=== PATIENT | female | born 1960 | race Caucasian/White ===

== ENCOUNTER → 2016-05-26 | Outpatient (REF) | payer OTHER ==
[~2016-05-26] MED LIST: /ESOM40CA OR; ARTHROTEC PO; CALCCHW12 OR; CRANPOW2 PO; ESTR62CR VA; HYDROXCHLOROQUINE PO; LEFLUNOMIDE; PENT10CA OR; ULTIMATE FLORA PO
[2016-05-26 13:40] LABS: BASO % 0.5 % (0.0-1.0); EOS % 0.6 % (0.0-3.0); LARGE UNSTAINED CELL # 0.1 K/mm3 (0.0-0.4); LARGE UNSTAINED CELL % 1.6 % (0.0-4.0); LYMPH % 20.1 % (24.0-44.0); MEAN CORPUSCULAR HEMOGLOBIN 30.3 pg (27.0-33.0); MEAN CORPUSCULAR HGB CONC 32.4 g/dl (32.0-36.5); MEAN CORPUSCULAR VOLUME 93.4 fl (80.0-96.0); MONO # 0.3 K/mm3 (0.0-0.8); MONO % 5.2 % (0.0-5.0); NEUTROPHILS # 3.6 K/mm3 (1.8-7.7); NEUTROPHILS % 71.9 % (36.0-66.0); PLATELET COUNT, AUTOMATED 181 k/mm3 (150-450); RED CELL DISTRIBUTION WIDTH 13.3 % (11.5-14.5); WHITE BLOOD COUNT 4.9 K/mm3 (4.0-10.0)
[2016-05-26 14:02] LABS: ALBUMIN/GLOBULIN RATIO 1.21 (1.00-1.93); ALKALINE PHOSPHATASE 61 U/L (45-117); ALT/SGPT 19 U/L (12-78); ANION GAP 10 MEQ/L (8-16); AST/SGOT 16 U/L (15-37); BILIRUBIN,TOTAL 0.4 MG/DL (0.2-1.0); BLOOD UREA NITROGEN 11 MG/DL (7-18); CALCIUM LEVEL 9.8 MG/DL (8.5-10.1); CARBON DIOXIDE LEVEL 30 MEQ/L (21-32); CHLORIDE LEVEL 102 MEQ/L (98-107); CHOLESTEROL LEVEL 174 MG/DL (<200); FERRITIN 9 NG/ML (8-252); FREE T4 0.89 NG/DL (0.76-1.46); GLOMERULAR FILTRATION RATE 54.7 (>51); GLUCOSE, FASTING 100 MG/DL (70-105); PERCENT SATURATION 19.7 % (13.2-37.4); POTASSIUM SERUM 4.2 MEQ/L (3.5-5.1); SODIUM LEVEL 142 MEQ/L (136-145); TOTAL IRON BINDING CAPACITY 502 UG/DL (250-450); TOTAL PROTEIN 7.3 GM/DL (6.4-8.2); TRIGLYCERIDES LEVEL 241 MG/DL (<150)
== END ==
LOC: M LABDRAW1 13:24
PROVIDERS: ATTEND Family Medicine
DX: D50.9 Iron deficiency anemia, unspecified (principal); E78.2 Mixed hyperlipidemia

== ENCOUNTER → 2016-07-06 | Outpatient (CLI) | payer OTHER ==
[~2016-07-06] MED LIST changes: +ATOR1TAB21 PO; +COLE1TAB PO; +CYCL10TA PO; +GASTROGRAFIN SOLUTION 30ML (Q9963) As Ordered ONE; +HYDR-3713 PO; +INFL10VL IV; +ISOVUE-370 76% 100ML VIAL (Q9967) As Ordered ONE; +LEFL1TAB4 PO; +POLY IRON PO; +PREMARIN CREAM; +SUCR1TA PO; +VITA10002 PO; +VITA100041 PO; +VITAMIN D + CALCIUM PO
--- NOTE | 2016-07-06 16:45 | REP ---
CT abdomen and pelvis without and with IV contrast: With oral contrast: History: Epigastric pain, anemia. Question inflammatory bowel disease and gastric rugal fold thickening on previous upper GI small bowel follow-through study from 03/03/2016. CT contrast dose: 100 mL of Isovue-[address] findings: Preliminary digital service girl radiograph demonstrates clips in right upper quadrant and fusion hardware in the lower lumbar spine. The lung bases are clear. The liver and the spleen are normal in size and homogeneous in texture on pre- and postcontrast images. No pancreatic abnormality is seen. No adrenal lesion is observed. The kidneys enhance symmetrically and are morphologically intact. There is fairly heavy atherosclerotic vascular calcification in the aorta and its major branches. In the infrarenal abdominal aorta there is a focal large aortic plaque producing a 55% aortic stenosis. No aneurysm is seen. There is heavy calcific plaquing in the common iliac arteries bilaterally. There is no obstructive lesion. Small and large bowel loops are normal in the upper abdomen. A normal retrocecal appendix is seen. The distal ileum is unremarkable without mural thickening. There is some mural thickening in the cecum mild in degree. No mass lesion is seen. No pelvic mass or adenopathy is observed. The uterus is surgically absent. No bony destructive lesion is appreciated. Impression: 1. Post cholecystectomy and hysterectomy as well as L4-5 lumbar spine fusion. 2. Mild mural thickening seen in the cecum question inflammatory enterocolitis. 3. Infrarenal abdominal aortic plaquing with 55% stenosis of the infrarenal abdominal aorta by diameter. The celiac, superior mesenteric artery, and inferior mesenteric artery are all patent on contrast enhanced CT. No other abnormality. Signed by Georgi Rudolph MD 07/07/2016 10:42 A
== END ==
LOC: M RAD 12:35
PROVIDERS: ATTEND Internal Medicine Gastroenterology
DX: R10.13 Epigastric pain (principal); D64.9 Anemia, unspecified

== ENCOUNTER → 2016-07-18 | Outpatient (CLI) | payer OTHER ==
[~2016-07-18] VITALS: Ht 162.6 cm; Wt 63.5 kg
[~2016-07-18] MED LIST changes: -GASTROGRAFIN SOLUTION 30ML (Q9963) As Ordered ONE; -ISOVUE-370 76% 100ML VIAL (Q9967) As Ordered ONE; +LIDOCAINE 2% INJ 100 MG/5 ML SDV (FOR ANES.) As Ordered ONE; +NS 1,000 ML IV SCH; +PROPOFOL 200 MG/20 ML VIAL As Ordered ONE
--- NOTE | 2016-07-18 12:37 | ROOR ---
Patient Name: Ezra Ruvalcaba Procedure Date: 07/18/2016 12:27 PM Date of : 1960 Age: 55 Room: [facility] Gender: Female Note Status: Finalized Procedure: Upper GI endoscopy Indications: Epigastric abdominal pain, Dyspepsia Providers: Parish SHAVER MD Referring MD: Wing Quinteros MD Requesting Provider: Medicines: Monitored Anesthesia Care Complications: No immediate complications. Procedure: Pre-Anesthesia Assessment: - The heart rate, respiratory rate, oxygen saturations, blood pressure, adequacy of pulmonary ventilation, and response to care were monitored throughout the procedure. The Endoscope was introduced through the mouth, and advanced to the second part of duodenum. The upper GI endoscopy was accomplished without difficulty. The patient tolerated the procedure well. Findings: The esophagus was normal. The stomach was normal. The examined duodenum was normal. Impression: - Normal esophagus. - Normal stomach. - Normal examined duodenum. - No specimens collected. Recommendation: - Observe patient's clinical course. - Continue present medications. - Follow an antireflux regimen. Parish Shaver MD Parish SHAVER MD 07/18/2016 12:37:09 PM This report has been signed electronically. Number of Addenda: 0 Note Initiated On: 07/18/2016 12:27 PM Estimated Blood Loss: Estimated blood loss: none.
--- NOTE | 2016-07-18 12:59 | ROOR ---
Patient Name: Ezra Ruvalcaba Procedure Date: 07/18/2016 12:28 PM Date of : 1960 Age: 55 Room: [facility] Gender: Female Note Status: Finalized Procedure: Colonoscopy Indications: Abnormal CT of the GI tract Providers: Parish SHAVER MD Referring MD: Wing Quinteros MD Requesting Provider: Medicines: Monitored Anesthesia Care Complications: No immediate complications. Procedure: Pre-Anesthesia Assessment: - The heart rate, respiratory rate, oxygen saturations, blood pressure, adequacy of pulmonary ventilation, and response to care were monitored throughout the procedure. The Colonoscope was introduced through the anus and advanced to 15 cm into the ileum. The colonoscopy was performed without difficulty. The patient tolerated the procedure well. The quality of the bowel preparation was good. Findings: The perianal and digital rectal examinations were normal. The terminal ileum appeared normal. A few small-mouthed diverticula were found in the sigmoid colon. The entire examined colon appeared normal on direct and retroflexion views. Impression: - The examined portion of the ileum (x15 cm) is normal. - Mild Diverticulosis in the sigmoid colon. - Small internal hemorrhoids. - The entire colon is otherwise normal on direct and retroflexion views. - No specimens collected. Recommendation: - To visualize the small bowel, perform video capsule endoscopy at the next available appointment. - my office will call you to set up capsule endoscopy. - Use Bentyl (dicyclomine) 10 mg -20 mg every 4-6 hrs as needed for abdominal spasm - (the script was sent to your pharmacy on file) Parish Shaver MD Parish SHAVER MD 07/18/2016 12:58:52 PM This report has been signed electronically. Number of Addenda: 0 Note Initiated On: 07/18/2016 12:28 PM Estimated Blood Loss: Estimated blood loss: none.
[2016-07-18 13:10] VITALS: BP 122/53
== END | disposition home or self-care (01) ==
LOC: M OPP 10:09
PROVIDERS: ATTEND Internal Medicine Gastroenterology
DX: K57.30 Diverticulosis of large intestine without perforation or abscess without bleeding (principal); K64.8 Other hemorrhoids; R10.13 Epigastric pain; E78.00 Pure hypercholesterolemia, unspecified; D64.9 Anemia, unspecified; M19.90 Unspecified osteoarthritis, unspecified site; M79.7 Fibromyalgia; F17.210 Nicotine dependence, cigarettes, uncomplicated; F17.228 Nicotine dependence, chewing tobacco, with other nicotine-induced disorders; M48.00 Spinal stenosis, site unspecified; N30.10 Interstitial cystitis (chronic) without hematuria; M06.9 Rheumatoid arthritis, unspecified; M51.9 Unspecified thoracic, thoracolumbar and lumbosacral intervertebral disc disorder; Z79.899 Other long term (current) drug therapy; Z88.8 Allergy status to other drugs, medicaments and biological substances; Z91.02 Food additives allergy status; Z88.2 Allergy status to sulfonamides

== ENCOUNTER → 2016-08-25 | Outpatient (REF) | payer OTHER ==
[~2016-08-25] MED LIST changes: -LIDOCAINE 2% INJ 100 MG/5 ML SDV (FOR ANES.) As Ordered ONE; -NS 1,000 ML IV SCH; -PROPOFOL 200 MG/20 ML VIAL As Ordered ONE
[2016-08-25 18:13] LABS: BASO % 0.6 % (0.0-1.0); EOS % 0.8 % (0.0-3.0); LARGE UNSTAINED CELL # 0.1 K/mm3 (0.0-0.4); LARGE UNSTAINED CELL % 1.6 % (0.0-4.0); LYMPH # 1.9 K/mm3 (1.5-4.5); LYMPH % 30.6 % (24.0-44.0); MEAN CORPUSCULAR HEMOGLOBIN 31.9 pg (27.0-33.0); MEAN CORPUSCULAR HGB CONC 32.7 g/dl (32.0-36.5); MEAN CORPUSCULAR VOLUME 97.5 fl (80.0-96.0); MONO # 0.4 K/mm3 (0.0-0.8); MONO % 5.9 % (0.0-5.0); NEUTROPHILS # 3.8 K/mm3 (1.8-7.7); NEUTROPHILS % 60.4 % (36.0-66.0); PLATELET COUNT, AUTOMATED 191 k/mm3 (150-450); WHITE BLOOD COUNT 6.3 K/mm3 (4.0-10.0)
[2016-08-25 18:31] LABS: VITAMIN B12 LEVEL 1060 PG/ML (247-911)
[2016-08-25 18:48] LABS: ALBUMIN 3.7 GM/DL (3.2-5.2); ALBUMIN/GLOBULIN RATIO 1.23 (1.00-1.93); ALKALINE PHOSPHATASE 55 U/L (45-117); ALT/SGPT 35 U/L (12-78); ANION GAP 7 MEQ/L (8-16); AST/SGOT 19 U/L (15-37); BILIRUBIN,TOTAL 0.3 MG/DL (0.2-1.0); BLOOD UREA NITROGEN 10 MG/DL (7-18); CALCIUM LEVEL 8.5 MG/DL (8.5-10.1); CARBON DIOXIDE LEVEL 29 MEQ/L (21-32); CHLORIDE LEVEL 106 MEQ/L (98-107); CREATININE FOR GFR 0.95 MG/DL (0.55-1.02); FERRITIN 15 NG/ML (8-252); GLOMERULAR FILTRATION RATE > 60.0 (>51); GLUCOSE, FASTING 84 MG/DL (70-105); PERCENT SATURATION 12.6 % (13.2-37.4); POTASSIUM SERUM 4.4 MEQ/L (3.5-5.1); SODIUM LEVEL 142 MEQ/L (136-145); TOTAL IRON BINDING CAPACITY 443 UG/DL (250-450); TOTAL PROTEIN 6.7 GM/DL (6.4-8.2)
== END ==
LOC: M SFHCPLAZ 15:10
PROVIDERS: ATTEND Family Medicine
DX: D50.9 Iron deficiency anemia, unspecified (principal); N18.2 Chronic kidney disease, stage 2 (mild); R73.01 Impaired fasting glucose; E53.8 Deficiency of other specified B group vitamins

== ENCOUNTER → 2016-09-28 | Outpatient (CLI) | payer OTHER ==
--- NOTE | 2016-09-28 09:49 | REPMRS ---
Patient History The patient states she has not had a clinical breast exam in over a year. Family history of colorectal cancer in paternal grandfather, colorectal cancer in maternal aunt at age 50 or over, colorectal cancer in maternal grandmother, and colorectal cancer in maternal uncle at age 50 or over. Benign stereotatic breast biopsy of the right breast, October 10, 2010. Taking unspecified hormones for 7 years. Digital Woman Screen Mammo: September 28, 2016 - Exam #: [id number] Bilateral CC and MLO view(s) were taken. Technologist: Juju Oconnor, Technologist Prior study comparison: September 28, 2015, digital woman screen mammo performed at [facility] to [facility]. September 22, 2014, digital woman screen mammo performed at [facility]. FINDINGS: The breast tissue is heterogeneously dense. This may lower the sensitivity of mammography. There has been no change in the appearance of the mammogram from the prior studies. There is a moderate amount of residual fibroglandular tissue which is fairly symmetric. There is no interval development of dominant mass, areas of architectural distortion, or clustered microcalcification typical of malignancy. ASSESSMENT: BI-RADS/ACR category 1 mammogram. Negative. Recommendation Routine screening mammogram in 1 year (for women over age 40). This mammogram was interpreted with the aid of an FDA-approved computer-aided dectection system. Electronically Signed By: Harish Kennedy MD 09/28/16 0948
--- NOTE | 2016-09-29 14:17 | DEXA ---
AP SPINE L1 - L4 0.982 -0.2 0.6 LT FEMUR TOTAL 0.979 -0.2 0.5 RT FEMUR TOTAL TOTAL BODY TOTAL OTHER L1-L3 1.234 0.4 1.4 DUAL FEMUR FRAX* ASSESSMENT Risk factors: Rheumatoid arthritis, tobacco user (smoker). 10 year probability of fracture Major osteoporotic fracture 8.3 % Hip fracture 0.9 % COMMENTS: Normal bone densitometry of the spine. There is low bone density of the hips. The increased density of the spine does represent a significant change. The decreased density of the left hip does not represent a significant change. The increased density of the right hip does represent a significant change. The density of the spine has increased 1.2% since the initial exam on 2004. The spine density has increased 6.6% since the most recent exam on 03/30/2014. The density of the left hip has decreased 8.7% since the initial exam on 2006. The density of the left hip has decreased 0.9% since the most recent exam on 04/2013. The density of the right hip has decreased 7.2% since the initial exam on 2004. The density of the right hip has increased 2.0% since the most recent exam on . FOLLOW-UP: Recommendation for the next bone density exam: 2 years. ZINA
== END ==
LOC: M WHC 07:47
PROVIDERS: ATTEND Family Medicine
DX: Z12.39 Encounter for other screening for malignant neoplasm of breast (principal); M85.9 Disorder of bone density and structure, unspecified

== ENCOUNTER → 2016-12-28 | Outpatient (REF) | payer OTHER ==
[~2016-12-28] MED LIST changes: +VITA-182 PO; -VITA100041 PO
[2016-12-28 18:29] LABS: ALBUMIN 4.1 GM/DL (3.2-5.2); ALBUMIN/GLOBULIN RATIO 1.14 (1.00-1.93); ALKALINE PHOSPHATASE 56 U/L (45-117); ALT/SGPT 21 U/L (12-78); ANION GAP 6 MEQ/L (8-16); AST/SGOT 11 U/L (15-37); BILIRUBIN,TOTAL 0.4 MG/DL (0.2-1.0); BLOOD UREA NITROGEN 13 MG/DL (7-18); CALCIUM LEVEL 9.5 MG/DL (8.5-10.1); CARBON DIOXIDE LEVEL 32 MEQ/L (21-32); CHLORIDE LEVEL 103 MEQ/L (98-107); CREATININE FOR GFR 0.95 MG/DL (0.55-1.02); FERRITIN 25 NG/ML (8-252); FREE T4 0.86 NG/DL (0.76-1.46); GLOMERULAR FILTRATION RATE > 60.0 (>51); GLUCOSE, FASTING 81 MG/DL (70-105); PERCENT SATURATION 22.5 % (13.2-45.0); POTASSIUM SERUM 4.6 MEQ/L (3.5-5.1); SODIUM LEVEL 141 MEQ/L (136-145); TOTAL IRON BINDING CAPACITY 475 UG/DL (250-450); TOTAL PROTEIN 7.7 GM/DL (6.4-8.2)
[2016-12-28 19:00] LABS: BASO # 0.1 K/mm3 (0.0-0.2); BASO % 0.9 % (0.0-1.0); EOS % 0.6 % (0.0-3.0); LARGE UNSTAINED CELL # 0.1 K/mm3 (0.0-0.4); LARGE UNSTAINED CELL % 1.5 % (0.0-4.0); LYMPH # 1.5 K/mm3 (1.5-4.5); LYMPH % 21.5 % (24.0-44.0); MEAN CORPUSCULAR HGB CONC 33.4 g/dl (32.0-36.5); MONO # 0.5 K/mm3 (0.0-0.8); NEUTROPHILS # 4.5 K/mm3 (1.8-7.7); NEUTROPHILS % 67.5 % (36.0-66.0); PLATELET COUNT, AUTOMATED 241 k/mm3 (150-450); RED CELL DISTRIBUTION WIDTH 12.5 % (11.5-14.5); WHITE BLOOD COUNT 6.6 K/mm3 (4.0-10.0)
== END ==
LOC: M SFHCPLAZ 12:12
PROVIDERS: ATTEND Family Medicine
DX: D50.9 Iron deficiency anemia, unspecified (principal); N18.2 Chronic kidney disease, stage 2 (mild); E78.2 Mixed hyperlipidemia

== ENCOUNTER → 2017-03-29 | Outpatient (REF) | payer MEDICARE ==
[2017-03-29 16:19] LABS: BASO % 0.6 % (0.0-1.0); EOS % 0.3 % (0.0-3.0); IMMATURE GRANULOCYTE % 0.1 % (0-0); LYMPH # 0.5 10^3/uL (1.5-4.5); LYMPH % 7.4 % (24.0-44.0); MEAN CORPUSCULAR HEMOGLOBIN 31.9 pg (27.0-33.0); MEAN CORPUSCULAR HGB CONC 31.7 g/dl (32.0-36.5); MEAN CORPUSCULAR VOLUME 100.8 fl (80.0-96.0); MONO # 0.4 10^3/uL (0.0-0.8); MONO % 5.9 % (0.0-5.0); NEUTROPHILS # 5.8 10^3/uL (1.8-7.7); NEUTROPHILS % 85.7 % (36.0-66.0); PLATELET COUNT, AUTOMATED 222 10^3/uL (150-450); RED CELL DISTRIBUTION WIDTH 12.4 % (11.5-14.5); RETIC HEMOGLOBIN EQUIVALENT 35.7 pg (24-36); RETICULOCYTE % 1.5 % (0.5-1.5); WHITE BLOOD COUNT 6.7 10^3/uL (4.0-10.0)
[2017-03-29 16:37] LABS: ALBUMIN/GLOBULIN RATIO 1.29 (1.00-1.93); ALKALINE PHOSPHATASE 39 U/L (45-117); ALT/SGPT 31 U/L (12-78); ANION GAP 6 MEQ/L (8-16); AST/SGOT 18 U/L (7-37); BILIRUBIN,TOTAL 0.4 MG/DL (0.2-1.0); BLOOD UREA NITROGEN 10 MG/DL (7-18); CALCIUM LEVEL 9.5 MG/DL (8.5-10.1); CARBON DIOXIDE LEVEL 29 MEQ/L (21-32); CHLORIDE LEVEL 108 MEQ/L (98-107); CHOLESTEROL LEVEL 203 MG/DL (<200); CREATININE FOR GFR 0.91 MG/DL (0.55-1.02); FERRITIN 14 NG/ML (8-252); GLOMERULAR FILTRATION RATE > 60.0 (>51); GLUCOSE, FASTING 102 MG/DL (70-105); PERCENT SATURATION 13.5 % (13.2-45.0); POTASSIUM SERUM 4.6 MEQ/L (3.5-5.1); SODIUM LEVEL 143 MEQ/L (136-145); TOTAL IRON BINDING CAPACITY 451 UG/DL (250-450); TOTAL PROTEIN 7.1 GM/DL (6.4-8.2); TRIGLYCERIDES LEVEL 111 MG/DL (<150)
== END ==
LOC: M SFHCPLAZ 12:50
PROVIDERS: ATTEND Family Medicine
DX: E78.2 Mixed hyperlipidemia (principal); D50.9 Iron deficiency anemia, unspecified; N18.2 Chronic kidney disease, stage 2 (mild); E53.8 Deficiency of other specified B group vitamins; E55.9 Vitamin D deficiency, unspecified
CPT/HCPCS: 36415; 80053; 80061; 82306; 82550; 82728; 83550; 83970; 85025; 85046; 86140; G0463

== ENCOUNTER → 2017-04-02 | Outpatient (CLI) | payer MEDICARE ==
--- NOTE | 2017-04-02 18:09 | REP ---
MR LUMBAR SPINE WITHOUT CONTRAST: HISTORY: Degenerative disc disease. COMPARISON: 06/23/2013 Decreased signal intensity on T2 weighted images is present in the T11-12 through L4-5 intervertebral discs. The L2-3 through L4-5 intervertebral discs are decreased in height. These findings are consistent with disc degeneration. There is no disc bulge or herniation at the L1-2 level. The L1 nerves exit the neural foramina without compression. A diffuse disc bulge is present at the L2-3 level. There is hypertrophy of ligamenta flava and posterior articulating facets. These findings produce minimal central canal stenosis. A small left intraforaminal disc protrusion is present. There is compression of the left L2 nerve in the neural foramen. The right L2 nerve exits the neural foramen without compression. A diffuse disc bulge is present at the L3-4 level. There is hypertrophy of the ligamenta flava and posterior articulating facets. The findings produce severe central canal stenosis. There is compression of the right L3 nerve in the neural foramen. The left L3 nerve exits the neural foramen without compression. The patient is status-post L4-5 posterior spinal fusion. Metal rods and pedicle screws are present. The spinal canal is partially obscured by metal artifact at this level. A diffuse disc bulge is present. There is minimal compression of the thecal sac. The L4 nerves exit the neural foramina without compression. A diffuse disc bulge and small central disc protrusion are present at the L5-S1 level. There is minimal compression of the thecal sac. There is hypertrophy of the posterior articulating facets. The L5 nerves exit the neural foraminal without compression. The conus medullaris is normal in appearance terminating at the level of the T12-L1 intervertebral disc.. Normal signal intensity is present in the lumbar vertebral bodies. IMPRESSION: 1. Minimal central stenosis at the L2-3 level secondary to disc bulge ligamentous and facet hypertrophy. A small left intraforaminal disc protrusion is present. There is compression of the left L2 nerve in the neural foramen. 2. Severe central canal stenosis at the L3-4 level secondary to disc bulge, ligamentous and facet hypertrophy. There is compression of the right L3 nerve in the neural foramen. There has been progression of the canal stenosis. The right L3 nerve compression is a new finding. 3. The patient is status-post L4-5 posterior spinal fusion. A diffuse disc bulge with minimal thecal sac compression is present. There is anatomic alignment of the lumbar spine. The spinal fusion is a new finding. 4. Diffuse disc bulge and small central disc protrusion at the L5-S1 level with minimal thecal sac compression. There is no other significant change. Signed by Daniel Matthew MD 04/03/2017 08:35 A
== END ==
LOC: M RAD 16:07
PROVIDERS: ATTEND Family Medicine
DX: M47.816 Spondylosis without myelopathy or radiculopathy, lumbar region (principal)

== ENCOUNTER → 2017-06-06 | Outpatient (CLI) | payer MEDICARE | LOC: M PAIN 13:00 | DX: M48.07 Spinal stenosis, lumbosacral region (principal); M06.08 Rheumatoid arthritis without rheumatoid factor, vertebrae; M06.09 Rheumatoid arthritis without rheumatoid factor, multiple sites; G89.29 Other chronic pain; E78.5 Hyperlipidemia, unspecified; E55.9 Vitamin D deficiency, unspecified; G47.00 Insomnia, unspecified; F17.210 Nicotine dependence, cigarettes, uncomplicated; Z79.899 Other long term (current) drug therapy; Z88.2 Allergy status to sulfonamides; Z88.6 Allergy status to analgesic agent; Z88.8 Allergy status to other drugs, medicaments and biological substances; Z91.048 Other nonmedicinal substance allergy status | CPT/HCPCS: G0463 ==

== ENCOUNTER → 2017-08-06 | Outpatient (REF) | payer MEDICARE ==
[2017-08-06 14:24] LABS: BASO % 0.5 % (0.0-1.0); EOS % 0.3 % (0.0-3.0); HEMOGLOBIN 12.8 g/dl (12.0-15.5); IMMATURE GRANULOCYTE % 0.3 % (0-3.0); LYMPH # 0.7 10^3/uL (1.5-4.5); LYMPH % 12.2 % (24.0-44.0); MEAN CORPUSCULAR HEMOGLOBIN 31.5 pg (27.0-33.0); MEAN CORPUSCULAR HGB CONC 32.8 g/dl (32.0-36.5); MEAN CORPUSCULAR VOLUME 96.1 fl (80.0-96.0); MONO % 16.3 % (0.0-5.0); NEUTROPHILS # 4.2 10^3/uL (1.8-7.7); NEUTROPHILS % 70.4 % (36.0-66.0); PLATELET COUNT, AUTOMATED 190 10^3/uL (150-450); RED BLOOD COUNT 4.06 10^6/uL (4.00-5.40); RED CELL DISTRIBUTION WIDTH 12.1 % (11.5-14.5)
[2017-08-06 14:55] LABS: ALBUMIN 4.1 GM/DL (3.2-5.2); ALBUMIN/GLOBULIN RATIO 1.17 (1.00-1.93); ALKALINE PHOSPHATASE 64 U/L (45-117); ALT/SGPT 27 U/L (12-78); ANION GAP 6 MEQ/L (8-16); AST/SGOT 23 U/L (7-37); BILIRUBIN,TOTAL 0.5 MG/DL (0.2-1.0); BLOOD UREA NITROGEN 10 MG/DL (7-18); CARBON DIOXIDE LEVEL 28 MEQ/L (21-32); CHLORIDE LEVEL 107 MEQ/L (98-107); GLOMERULAR FILTRATION RATE > 60.0 (>51); GLUCOSE, FASTING 74 MG/DL (70-100); POTASSIUM SERUM 4.5 MEQ/L (3.5-5.1); SODIUM LEVEL 141 MEQ/L (136-145); TOTAL PROTEIN 7.6 GM/DL (6.4-8.2)
== END ==
LOC: M SFHCPLAZ 11:54
DX: J06.9 Acute upper respiratory infection, unspecified (principal)
CPT/HCPCS: 80053

== ENCOUNTER → 2017-08-06 | Outpatient (CLI) | payer MEDICARE | LOC: M SMT 12:07 | DX: J06.9 Acute upper respiratory infection, unspecified (principal); Z90.49 Acquired absence of other specified parts of digestive tract; Z98.1 Arthrodesis status | CPT/HCPCS: 71046; 80053 ==

== ENCOUNTER → 2017-09-27 | Outpatient (REF) | payer MEDICARE ==
[2017-09-27 13:14] LABS: BASO % 0.8 % (0.0-1.0); EOS % 0.8 % (0.0-3.0); HEMATOCRIT 40.9 % (36.0-47.0); HEMOGLOBIN 13.3 g/dl (12.0-15.5); IMMATURE GRANULOCYTE % 0.2 % (0-3.0); LYMPH # 0.9 10^3/uL (1.5-4.5); LYMPH % 18.4 % (24.0-44.0); MEAN CORPUSCULAR HEMOGLOBIN 31.7 pg (27.0-33.0); MEAN CORPUSCULAR HGB CONC 32.5 g/dl (32.0-36.5); MEAN CORPUSCULAR VOLUME 97.4 fl (80.0-96.0); MONO # 0.4 10^3/uL (0.0-0.8); MONO % 7.4 % (0.0-5.0); NEUTROPHILS # 3.6 10^3/uL (1.8-7.7); NEUTROPHILS % 72.4 % (36.0-66.0); PLATELET COUNT, AUTOMATED 225 10^3/uL (150-450); RED CELL DISTRIBUTION WIDTH 12.2 % (11.5-14.5); RETIC HEMOGLOBIN EQUIVALENT 33.9 pg (24-36); RETICULOCYTE # 57.1 10^9/L (17-77); RETICULOCYTE % 1.4 % (0.5-1.5)
[2017-09-27 13:19] LABS: HEMATOCRIT 40.9 % (36.0-47.0)
[2017-09-27 13:29] LABS: ALBUMIN/GLOBULIN RATIO 1.14 (1.00-1.93); ALKALINE PHOSPHATASE 70 U/L (45-117); ALT/SGPT 32 U/L (12-78); ANION GAP 7 MEQ/L (8-16); AST/SGOT 27 U/L (7-37); BILIRUBIN,TOTAL 0.5 MG/DL (0.2-1.0); BLOOD UREA NITROGEN 9 MG/DL (7-18); CALCIUM LEVEL 9.3 MG/DL (8.5-10.1); CARBON DIOXIDE LEVEL 29 MEQ/L (21-32); CHLORIDE LEVEL 106 MEQ/L (98-107); CREATININE FOR GFR 1.02 MG/DL (0.55-1.30); GLOMERULAR FILTRATION RATE 59.5 (>51); GLUCOSE, FASTING 80 MG/DL (70-100); POTASSIUM SERUM 4.8 MEQ/L (3.5-5.1); SODIUM LEVEL 142 MEQ/L (136-145); TOTAL PROTEIN 7.5 GM/DL (6.4-8.2)
[2017-09-27 14:07] LABS: ESTIMATED AVERAGE GLUCOSE 103 MG/DL (60-110); HEMOGLOBIN A1c 5.2 %
[2017-09-27 16:14] LABS: VITAMIN B12 LEVEL 1713 PG/ML (247-911)
[2017-10-01 14:36] LABS: PRETREATED FOLATE FOR RBCFOL 10.7 NG/ML; RBC FOLATE 549.4 NG/ML (280-791)
== END ==
LOC: M SFHCPLAZ 09:47
DX: E53.8 Deficiency of other specified B group vitamins (principal); R73.01 Impaired fasting glucose; D50.9 Iron deficiency anemia, unspecified
CPT/HCPCS: 82607

== ENCOUNTER → 2017-10-01 | Outpatient (CLI) | payer MEDICARE | LOC: M WHC 08:35 | DX: Z12.31 Encounter for screening mammogram for malignant neoplasm of breast (principal); R92.8 Other abnormal and inconclusive findings on diagnostic imaging of breast; Z79.890 Hormone replacement therapy; Z98.890 Other specified postprocedural states; Z12.72 Encounter for screening for malignant neoplasm of vagina | CPT/HCPCS: G0123 ==

== ENCOUNTER → 2017-10-01 | Outpatient (REF) | payer MEDICARE | LOC: M SFHCWAGY 09:00 | DX: Z12.72 Encounter for screening for malignant neoplasm of vagina (principal) | CPT/HCPCS: G0123 ==

== ENCOUNTER → 2017-11-28 | Outpatient (REF) | payer MEDICARE | LOC: M SFHCLERA 11-29 12:26 | DX: D23.39 Other benign neoplasm of skin of other parts of face (principal); D22.5 Melanocytic nevi of trunk; L82.1 Other seborrheic keratosis | CPT/HCPCS: 88305 ==

== ENCOUNTER → 2017-12-07 | Outpatient (CLI) | payer MEDICARE | LOC: M PAIN 11:15 | DX: M47.897 Other spondylosis, lumbosacral region (principal); M06.9 Rheumatoid arthritis, unspecified; G89.29 Other chronic pain; M19.90 Unspecified osteoarthritis, unspecified site; M79.7 Fibromyalgia; E78.5 Hyperlipidemia, unspecified; G47.00 Insomnia, unspecified; M85.80 Other specified disorders of bone density and structure, unspecified site; F17.210 Nicotine dependence, cigarettes, uncomplicated; Z79.899 Other long term (current) drug therapy; Z88.2 Allergy status to sulfonamides; Z88.6 Allergy status to analgesic agent; Z88.8 Allergy status to other drugs, medicaments and biological substances; Z91.09 Other allergy status, other than to drugs and biological substances; Z90.49 Acquired absence of other specified parts of digestive tract | CPT/HCPCS: G0463 ==

== ENCOUNTER → 2018-01-10 | Outpatient (CLI) | payer MEDICARE | LOC: M PAIN 09:45 | DX: M48.07 Spinal stenosis, lumbosacral region (principal); M06.08 Rheumatoid arthritis without rheumatoid factor, vertebrae; G89.29 Other chronic pain; M79.7 Fibromyalgia; M85.80 Other specified disorders of bone density and structure, unspecified site; E55.9 Vitamin D deficiency, unspecified; G47.00 Insomnia, unspecified; F17.210 Nicotine dependence, cigarettes, uncomplicated; Z79.899 Other long term (current) drug therapy; Z88.2 Allergy status to sulfonamides; Z88.6 Allergy status to analgesic agent; Z88.8 Allergy status to other drugs, medicaments and biological substances | CPT/HCPCS: G0463 ==

== ENCOUNTER → 2018-02-01 | Outpatient (CLI) | payer MEDICARE | LOC: M PAIN 13:00 | DX: M96.1 Postlaminectomy syndrome, not elsewhere classified (principal); M06.9 Rheumatoid arthritis, unspecified; M19.90 Unspecified osteoarthritis, unspecified site; M79.7 Fibromyalgia; F17.210 Nicotine dependence, cigarettes, uncomplicated; K21.9 Gastro-esophageal reflux disease without esophagitis; E78.5 Hyperlipidemia, unspecified; E55.9 Vitamin D deficiency, unspecified; N95.2 Postmenopausal atrophic vaginitis; M85.80 Other specified disorders of bone density and structure, unspecified site; K58.0 Irritable bowel syndrome with diarrhea; M51.26 Other intervertebral disc displacement, lumbar region; G47.00 Insomnia, unspecified; H04.123 Dry eye syndrome of bilateral lacrimal glands; Z98.1 Arthrodesis status; Z90.49 Acquired absence of other specified parts of digestive tract; Z88.2 Allergy status to sulfonamides; Z88.8 Allergy status to other drugs, medicaments and biological substances; Z79.899 Other long term (current) drug therapy | CPT/HCPCS: G0463 ==

== ENCOUNTER → 2018-02-05 | Outpatient (REF) | payer MEDICARE ==
[2018-02-05 11:44] LABS: BASO # 0.1 10^3/uL (0.0-0.2); BASO % 1.6 % (0.0-1.0); EOS # 0.1 10^3/uL (0.0-0.50); EOS % 1.6 % (0.0-3.0); HEMATOCRIT 37.7 % (36.0-47.0); HEMOGLOBIN 12.2 g/dl (12.0-15.5); IMMATURE GRANULOCYTE % 0.3 % (0-3.0); LYMPH # 0.9 10^3/uL (1.5-4.5); LYMPH % 24.8 % (24.0-44.0); MEAN CORPUSCULAR HEMOGLOBIN 31.8 pg (27.0-33.0); MEAN CORPUSCULAR HGB CONC 32.4 g/dl (32.0-36.5); MEAN CORPUSCULAR VOLUME 98.2 fl (80.0-96.0); MONO # 0.3 10^3/uL (0.0-0.8); MONO % 8.2 % (0.0-5.0); NEUTROPHILS # 2.3 10^3/uL (1.8-7.7); NEUTROPHILS % 63.5 % (36.0-66.0); PLATELET COUNT, AUTOMATED 183 10^3/uL (150-450); RED BLOOD COUNT 3.84 10^6/uL (4.00-5.40); RED CELL DISTRIBUTION WIDTH 12.6 % (11.5-14.5); RETIC HEMOGLOBIN EQUIVALENT 35.2 pg (24-36); RETICULOCYTE # 61.8 10^9/L (17-77); RETICULOCYTE % 1.6 % (0.5-1.5); WHITE BLOOD COUNT 3.7 10^3/uL (4.0-10.0)
[2018-02-05 12:28] LABS: ALBUMIN 3.7 GM/DL (3.2-5.2); ALBUMIN/GLOBULIN RATIO 1.32 (1.00-1.93); ALKALINE PHOSPHATASE 60 U/L (45-117); ALT/SGPT 20 U/L (12-78); ANION GAP 2 MEQ/L (8-16); AST/SGOT 19 U/L (7-37); BILIRUBIN,TOTAL 0.3 MG/DL (0.2-1.0); BLOOD UREA NITROGEN 10 MG/DL (7-18); C REACTIVE PROTEIN QUANTITATIV < 0.30 MG/DL (0.00-0.30); CALCIUM LEVEL 9.3 MG/DL (8.5-10.1); CARBON DIOXIDE LEVEL 32 MEQ/L (21-32); CHLORIDE LEVEL 109 MEQ/L (98-107); CHOLESTEROL LEVEL 154 MG/DL (<200); CHOLESTEROL RISK RATIO 2.655 (<5); CREATININE FOR GFR 1.01 MG/DL (0.55-1.30); GLOMERULAR FILTRATION RATE 59.9 (>51); GLUCOSE, FASTING 87 MG/DL (70-100); HDL CHOLESTEROL 58 MG/DL (>40); LDL CHOLESTEROL 61 MG/DL (<100); NON-HDL-C 96 MG/DL; POTASSIUM SERUM 5.1 MEQ/L (3.5-5.1); PTH INTACT 50.2 PG/ML (18.5-88.0); SODIUM LEVEL 143 MEQ/L (136-145); TOTAL 25(OH) VITAMIN D 51.8 NG/ML (30.0-100.0); TOTAL PROTEIN 6.5 GM/DL (6.4-8.2); TRIGLYCERIDES LEVEL 177 MG/DL (<150)
[2018-02-05 12:41] LABS: CPK CREATINE PHOSPHOKINASE 128 U/L (26-192)
[2018-02-09 00:06] LABS: AMPHETAMINE SCREEN, URINE Negative ng/mL (Cutoff=1000); BARBITURATES SCREEN, URINE Negative ng/mL (Cutoff=200); BENZODIAZEPINES, URINE SCREEN Negative ng/mL (Cutoff=200); CANNABINOID SCREEN, URINE Negative ng/mL (Cutoff=20); COCAINE SCREEN, URINE Negative ng/mL (Cutoff=300); CODEINE, URINE Negative (Cutoff=100); CREATININE, URINE 111.8 mg/dL (20.0-300.0); FENTANYL URINE SCREEN Negative pg/mL (Cutoff=2000); HYDROCODONE CONFIRM, URINE 387 ng/mL (Cutoff=100); HYDROCODONE, URINE Positive (.); HYDROMORPHONE, URINE Negative (Cutoff=100); METHADONE, URINE SCREEN Negative ng/mL (Cutoff=300); MORPHINE, URINE Negative (Cutoff=100); OPIATE SCREEN, URINE See Final Results ng/mL (Cutoff=300); OPIATES, URINE Positive ng/mL (Cutoff=300); OXYCODONE, SCREEN, URINE Negative ng/mL (Cutoff=100); PCP SCREEN, URINE Negative ng/mL (Cutoff=25); SPECIFIC GRAVITY, URINE 1.024 (.); pH, URINE 6.6 (4.5-8.9)
== END ==
LOC: M SFHCPLAZ 07:49
DX: D50.9 Iron deficiency anemia, unspecified (principal); E78.2 Mixed hyperlipidemia; N18.2 Chronic kidney disease, stage 2 (mild); M47.816 Spondylosis without myelopathy or radiculopathy, lumbar region
CPT/HCPCS: 82550

== ENCOUNTER → 2018-02-20 | Outpatient (CLI) | payer MEDICARE ==
[~2018-02-20] MED LIST changes: -/ESOM40CA OR; -ARTHROTEC PO; -ATOR1TAB21 PO; -CALCCHW12 OR; -COLE1TAB PO; -CRANPOW2 PO; -CYCL10TA PO; -ESTR62CR VA; -HYDR-3713 PO; -HYDROXCHLOROQUINE PO; -INFL10VL IV; +ISOVUE-M 300 61% 15ML VIAL (Q9967) As Ordered; -LEFL1TAB4 PO; -LEFLUNOMIDE; +LIDOCAINE 1% SDV INJ 30 ML VIAL As Ordered; +MIDAZOLAM INJ 2 MG/2 ML VIAL (J2250) As Ordered; -PENT10CA OR; -POLY IRON PO; -PREMARIN CREAM; -SUCR1TA PO; -ULTIMATE FLORA PO; -VITA-182 PO; -VITA10002 PO; -VITAMIN D + CALCIUM PO; +fentaNYL 100 MCG/2 ML INJECTION (J3010) As Ordered; +methylPREDNISolone SUSP 40 MG/ML (DEPO-medrol) VIAL (J1030) As Ordered
== END ==
LOC: M PAIN 13:45
DX: M96.1 Postlaminectomy syndrome, not elsewhere classified (principal); M51.17 Intervertebral disc disorders with radiculopathy, lumbosacral region; M06.9 Rheumatoid arthritis, unspecified; M19.90 Unspecified osteoarthritis, unspecified site; M79.7 Fibromyalgia; E78.5 Hyperlipidemia, unspecified; E55.9 Vitamin D deficiency, unspecified; G47.00 Insomnia, unspecified; M85.80 Other specified disorders of bone density and structure, unspecified site; F17.210 Nicotine dependence, cigarettes, uncomplicated; Z79.899 Other long term (current) drug therapy; Z88.2 Allergy status to sulfonamides; Z88.8 Allergy status to other drugs, medicaments and biological substances
CPT/HCPCS: J1030

== ENCOUNTER → 2018-03-12 | Outpatient (CLI) | payer MEDICARE | LOC: M PAIN 11:30 | DX: M48.07 Spinal stenosis, lumbosacral region (principal); M06.08 Rheumatoid arthritis without rheumatoid factor, vertebrae; M19.90 Unspecified osteoarthritis, unspecified site; M79.7 Fibromyalgia; K21.9 Gastro-esophageal reflux disease without esophagitis; E78.5 Hyperlipidemia, unspecified; N30.10 Interstitial cystitis (chronic) without hematuria; R10.13 Epigastric pain; M50.30 Other cervical disc degeneration, unspecified cervical region; N95.2 Postmenopausal atrophic vaginitis; M85.80 Other specified disorders of bone density and structure, unspecified site; E55.9 Vitamin D deficiency, unspecified; F17.210 Nicotine dependence, cigarettes, uncomplicated; K58.0 Irritable bowel syndrome with diarrhea; H04.123 Dry eye syndrome of bilateral lacrimal glands; M51.36 Other intervertebral disc degeneration, lumbar region; G47.00 Insomnia, unspecified; Z98.1 Arthrodesis status; Z90.49 Acquired absence of other specified parts of digestive tract; Z88.2 Allergy status to sulfonamides; Z88.8 Allergy status to other drugs, medicaments and biological substances | CPT/HCPCS: G0463 ==

== ENCOUNTER → 2018-05-10 | Outpatient (CLI) | payer MEDICARE ==
[~2018-05-10] MED LIST changes: +/ESOM40CA OR; +ARTHROTEC PO; +ATOR1TAB21 PO; +CALCCHW12 OR; +COLE1TAB PO; +CRANPOW2 PO; +CYCL10TA PO; +ESTR62CR VA; +HYDR-3713 PO; +HYDROXCHLOROQUINE PO; +INFL10VL IV; -ISOVUE-M 300 61% 15ML VIAL (Q9967) As Ordered; +LEFL1TAB4 PO; +LEFLUNOMIDE; -LIDOCAINE 1% SDV INJ 30 ML VIAL As Ordered; -MIDAZOLAM INJ 2 MG/2 ML VIAL (J2250) As Ordered; +PENT10CA OR; +POLY IRON PO; +PREMARIN CREAM; +SUCR1TA PO; +ULTIMATE FLORA PO; +VITA-182 PO; +VITA10002 PO; +VITAMIN D + CALCIUM PO; -fentaNYL 100 MCG/2 ML INJECTION (J3010) As Ordered; -methylPREDNISolone SUSP 40 MG/ML (DEPO-medrol) VIAL (J1030) As Ordered
--- NOTE | 2018-05-28 02:18 | ECWPNPC ---
PATIENT NAME: LOGAN CRAVEN : 1960 GENDER: FEMALE VISIT DATE: 05/10/2018 DISCHARGE DATE: 05/10/18 1115 VISIT LOCKED DATE TIME: PHYSICIAN: ANDREA ELIAS PHYSICIAN PAGER NO: [phone] RESOURCE: ANDREA ELIAS REASON FOR APPOINTMENT 1. LOW BACK HISTORY OF PRESENT ILLNESS HISTORY OF PRESENT ILLNESS: HERE FOR F/U OF CHRONIC LOW BACK PAIN W HX OF RHEUMATOID ARTHRITIS.RATING PAIN VAS 5/10.SHE FEELS SHE CONTINUES TO BENEFIT FROM [facility] ON 02/20/18.PAIN IS DESCRIBED INTERMITTENT. PAIN THE PATIENT DESCRIBES THE PAIN... FALL RISK SCREENING: SCREENING :NO FALLS IN THE PAST YEAR CURRENT MEDICATIONS TAKING VITAMIN D 2000 UNIT CAPSULE 1 TABLET ORALLY ONCE A DAY TAKING CANE . MISCELLANEOUS QUAD CANE _ QD R27 TAKING CALCIUM 600 + D 600-400 MG-UNIT TABLET 1 TABLET ORALLY ONCE A DAY TAKING CARAFATE 1 GM TABLET 1 TABLET ON AN EMPTY STOMACH ORALLY AC TID TAKING ESOMEPRAZOLE MAGNESIUM 40 MG CAPSULE DELAYED RELEASE 1 CAPSULE ORALLY AC BID TAKING HYDROXYCHLOROQUINE SULFATE 200 MG TABLET 2 TABLETS WITH FOOD OR MILK ORALLY ONCE A DAY TAKING ARAVA 20 MG TABLET 1 TABLET ORALLY ONCE A DAY TAKING XELJANZ XR 11 MG TABLET EXTENDED RELEASE 24 HOUR 1 TABLET ORALLY ONCE A DAY TAKING CARISOPRODOL 350 MG TABLET 1 TABLET NEEDED ORALLY TID PRN, MDD 3 TAKING CYANOCOBALAMIN 500 MCG TABLET 1 TABLET ORALLY ONCE A DAY TAKING COLESTIPOL HCL 1 GM TABLET 1 TAB ORALLY ONCE A DAY TAKING ELMIRON 100 MG CAPSULE 1 CAPSULE ON AN EMPTY STOMACH 1 TABLET THREE A DAY TAKING ATORVASTATIN CALCIUM 20 MG TABLET 1 TABLET ORALLY ONCE A DAY TAKING DERMOTIC 0.01 % OIL 5 DROPS INTO AFFECTED EAR OTIC TWICE A DAY X 5D C FLARES TAKING PREMARIN 0.625 MG/GM CREAM 1 GRAM VAGINAL WEEKLY TAKING HYDROCODONE-ACETAMINOPHEN 5-325 MG TABLET 1 TABLET NEEDED ORALLY TID PRN MDD = 3 NOT-TAKING TENS UNIT - DIRECTED _ DAILY, M47.22, M06.9 NOT-TAKING ORPHENADRINE CITRATE ER 100 MG TABLET EXTENDED RELEASE 12 HOUR 1 TABLET ORALLY TWICE A DAY MEDICATION LIST REVIEWED AND RECONCILED WITH THE PATIENT PAST MEDICAL HISTORY RA/OSTEOARTHRITIS/FIBROMYALGIA NICOTINE ADDICTION-08/2011 FEV1 2.5L (101%)/RATIO 97% INTERSTITIAL CYSTITIS GERD/DYSPEPSIA-06/2016 NORMAL EGD/COLON/SB CAPSULE-R HYPERLIPIDEMIA 2B ENDOMETRIOSIS 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 SPENCER 2008 FOLLOWS WITH WOMAN TO WOMAN HISTORY OF TUBULAR ADENOMA-NORMAL COLONOSCOPY APRIL 2009 NORMAL COLONOSCOPY C - RANDOM BIOPSIES-[place] COLONOSCOPY 07/18/16 REINDL CERVICAL DJD STATUS POST MULTILEVEL FUSION-01/2010 MRI STABLE ACDF C BASELINE DJD ATROPHIC VAGINITIS OSTEOPENIA VITAMIN D DEFICIENCY CHRONIC SINUSITIS / NONE LATELY RECURRENT UTI / YEARS AGO CHRONIC DIARRHEA STATUS POST LAPAROSCOPIC CHOLECYSTECTOMY JULY 2009//[id number] CHRONIC DRY EYES MEMORY LOSS 2 INSOMNIA, WORK STRESS-12/2011 NORMAL MRI BRAIN S AND NORMAL WORKUP LUMBAR DJD-L2/3 BULGE C L IF HNP C L L2 COMPRESSION, L3/4 SEVERE CCS C B L3 COMPRESSION BY 03/2017 MRI LONG-TERM DISABILITY-TAKEN OOW 08/05/[address] BARAJAS, 01/2014 FILLED OUT LTD PAPERWORK FOR GUARDIAN-PATIENT DEFERRED WCE INSOMNIA ALLERGIES METHOTREXATE (ANTI-RHEUMATIC): MIGRANES: SIDE EFFECTS CYMBALTA: RACING PLUSE, SHAKES: ALLERGY WELLBUTRIN: PALPITATIONS, SEVERE: ALLERGY SULFA (FOR ALLERGY USE ONLY): NAUSEA/VOMITING: ALLERGY LYRICA: PALPITATIONS: ALLERGY CELEXA: PALPITATIONS: SIDE EFFECTS ORENCIA: ANAPHYLAXIS: ALLERGY TOPICAL ALOE VERA: SEVERE ITCHING CANNOT TOLERATE ASA BASED PRODUCTS/ NSAIDS: HX STOMACH BLEED: CONTRAINDICATION SURGICAL HISTORY LAPAROSCOPY X2 CHRISTINE BTL 1981 TVH [address] SPENCER 2007 VAGINAL CUFF BX. IRMA CHANDLER NP 03/07 CHOLECYSTECTOMY 06/09 ACDF-C4-T1 10/06 R BREAST HPAGOH-IMQYRERH-ECGDIY 09/2010 ABOVE L CTR-DR EAST 10/27/14 L4-L5 FUSION/LAMINECTOMY 09/2013 NORMAL EGD/COLON/SB CAPSULE-R 06/2016 FUSION C5 C6 1999 HYSTERECTOMY 1988 BENIGN MOLE REMOVAL 2018 FAMILY HISTORY FATHER: , DM, LUNG CANCER, CAD, DX ALZHEIMER, DIAGNOSED WITH CANCER MOTHER: , COPD SIBLINGS: BROTHER HTN,1/2 BROTHER DM SON(S): HTN PATERNAL GRAND FATHER: , CANCER, COLON MATERNAL AUNT: ALIVE, HYPERLIPIDEMIA 2 BROTHER(S) , 1 SISTER(S) - HEALTHY. 1 SON(S) , 1 DAUGHTER(S) . PGM, MGF C COLON CANCERMOM-GRAVES DISEASESON-SEIZURES, BRADYCARDIA-PACEMAKER, AFIB. SOCIAL HISTORY GENERAL: TOBACCO USE ARE YOU A:CURRENT SMOKER ARE YOU INTERESTED IN QUITTING?THINKING ABOUT QUITTING HAS CUT DOWN COUNSELED THE PATIENT ON SMOKING CESSATION, EDUCATION [id number]/11/2019 HOW MANY CIGARETTES A DAY DO YOU SMOKE?5 OR LESS HOW SOON AFTER YOU WAKE UP DO YOU SMOKE YOUR FIRST CIGARETTE?AFTER 60 MIN HOW OFTEN DO YOU SMOKE CIGARETTES?EVERY DAY PATIENT COUNSELED ON THE DANGERS OF TOBACCO USE AND URGED TO QUIT:05/10/2018 SMOKING CESSATION INFORMATION GIVEN05/02/2018 ALCOHOL SCREENING DID YOU HAVE A DRINK CONTAINING ALCOHOL IN THE PAST YEAR?YES HOW OFTEN DID YOU HAVE A DRINK CONTAINING ALCOHOL IN THE PAST YEAR?MONTHLY OR LESS (1 POINT) POINTS1 INTERPRETATIONNEGATIVE RECREATIONAL DRUG USE DRUG USE?NO CAFFEINE CAFFEINE USE?YES CUPS DAILY SEXUAL HX HAD SEX IN THE LAST 12 MONTHS (VAGINAL, ORAL, OR ANAL)?NO HAVE YOU EVER HAD AN STD?NO HIV / HEP-C SCREENING HIV TEST OFFERED TO PATIENT:YES DATE OFFERED:06/28/2017 TEST ACCEPTED:NO HEP-C TEST OFFERED TO PATIENT:YES DATE OFFERED:06/28/2017 REASON:PATIENT DECLINED TEST ACCEPTED:NO REASON:PATIENT DECLINED HINDUISM [id number] NONE NO SHINTO BELIEFS THAT WOULD IMPACT HEALTH CARE. LANGUAGE LANGUAGES SPOKEN:THAI EDUCATION LEVEL OF EDUCATION:HIGH SCHOOL GED LEARNING BARRIERS / SPECIAL NEEDS CHANGE FROM LAST VISIT?NO BARRIERS TO LEARNING?NO HEARING IMPAIRED?NO VISION IMPAIRED?YES COGNITIVELY IMPAIRED?NO :CORRECTIVE LENSES READINESS TO LEARN?YES LEARNING PREFERENCES?NO LEARNING CAPABILITIES PRESENT?YES EMOTIONAL BARRIERS?YES SPECIAL DEVICES?YES :CANE MARINA DRY DOCK MANAGER NEEDED?NO DOMESTIC VIOLENCE DO YOU FEEL SAFE IN YOUR ENVIRONMENT?YES OCCUPATION: DISABLED. DIET: REGULAR. EXERCISE: LOWER BACK EXERCISES, WALKS TOLERATED. MARITAL STATUS: .. OTHERS AT HOME: DAUGHTER, SON-IN LAW. PAIN CLINIC PFS, CLERGY, PUBLIC HEALTH REFERRALS PFS REFERRAL NEEDED?NO CLERGY REFERRAL NEEDED?NO PUBLIC HEALTH REFERRAL NEEDED?NO WAS THE PROVIDER NOTIFIED OF ANY PERTINENT INFO? N/A HAS THE PATIENT BEEN EDUCATED REGARDING HIS/HER PLAN OF CARE?YES HAS THE PATIENT BEEN EDUCATED REGARDING PAIN, THE RISK FOR PAIN, THE IMPORTANCE OF EFFECTIVE PAIN MANAGEMENT, AND THE PAIN ASSESSMENT PROCESS?YES ADVANCE DIRECTIVE ADVANCE DIRECTIVE DISCUSSED WITH PATIENT:YES HEALTH CARE PROXY RAH ROSARIO [phone] REVIEWED WITH PT 12/07/17 1150 LASREVIEWED WITH PT 01/10/18 1030 LAS02/20/18 REVIEWED WITH PT. AD REVIEWED WITH PT 03/12/18 1159 BVREVIEWED WITH PT 05/10/18 1056 LAS. HOSPITALIZATION/MAJOR DIAGNOSTIC PROCEDURE SURGICAL RELATED REVIEW OF SYSTEMS REVIEWED BY: PROVIDER: ANDREA MCLEAN . CONSTITUTIONAL: ANY CHANGE IN YOUR MEDICAL CONDITION? NO . CHILLS NO . FEVER NO . INFECTION: DO YOU HAVE NEW INFECTIONS? NO . DO YOU HAVE HISTORY OF MRSA? NO . MUSCULOSKELETAL: ANY NEW PATTERNS OF PAIN OR NUMBNESS? NO . GASTROENTEROLOGY: ANY NEW CHANGE IN BOWEL CONTROL? NO . GENITOURINARY: ANY NEW CHANGE IN BLADDER CONTROL? NO . IS THERE A CHANCE YOU COULD BE ? NO . HEMATOLOGY/LYMPH: DO YOU TAKE ANY BLOOD THINNERS? (FOR EXAMPLE- COUMADIN, PLAVIX, AGGRENOX, PLATEL, PRADAXA, OR XARELTO) NO . WHEN WAS YOUR LAST DOSE? DATE: TIME: . NEUROLOGY: HAVE YOU FALLEN IN THE PAST 6 MONTHS? NO . ANY NEW EXTREMITY NUMBNESS OR WEAKNESS? NO . CARDIOLOGY: DO YOU HAVE A PACEMAKER OR DEFIBRILLATOR? NO . RESPIRATORY: HAVE YOU BEEN SICK IN THE PAST WEEK? NO . FEVER NO . FLU LIKE SYMPTOMS? NO . COUGH NO . INTEGUMENTARY: DO YOU HAVE ANY RASHES OR OPEN SORES? NO . ALLERGIC/IMMUNO: ARE YOU ALLERGIC TO SHELLFISH OR IV DYE? NO . ANY NEW ALLERGIES? NO . PSYCHIATRIC: DO YOU HAVE THOUGHTS OF HURTING YOURSELF OR SOMEONE ELSE? NO . ARE YOU ABUSED, NEGLECTED, OR IN AN UNSAFE ENVIRONMENT? NO . ENDOCRINOLOGY: ARE YOU DIABETIC? NO . OTHER: DO YOU NEED ANY PRESCRIPTIONS? NO . IF YES, PLEASE LIST: ____ . ANY NEW PROBLEMS WITH YOUR MEDICATIONS? NO . WHEN DID YOU LAST EAT? ____ . WHEN DID YOU LAST DRINK? ____ . WHAT DID YOU LAST DRINK? ____ . NAME OF PERSON DRIVING YOU HOME? ____ . DO YOU HAVE ANY OTHER QUESTIONS OR CONCERNS NO . VITAL SIGNS WT 131.0 LBS, HT 64 IN, BMI 22.48 INDEX, BP 132/66 MM HG, HR 103 /MIN, RR 18 /MIN, TEMP 97.7 F, OXYGEN SAT % 97%, SAFE IN ENV? (Y/N) YES, NA INITIALS AW 1037, REVIEWED BY: MELANIA. EXAMINATION GENERAL EXAMINATION: GENERAL APPEARANCE:AWAKE,ALERT ,PLEAASANT . PSYCHAFFECT NORMAL . LUNGS:LUNG LINDSEY ARE CLEAR TO AUSCULTATION BILATERALLY. GOOD MOVEMENT OF AIR . HEART:S1, S2 IN A REGULAR RATE AND RHYTHM. NO SIGNIFICANT MURMURS, RUBS OR GALLOPS NOTED . ASSESSMENTS LUMBOSACRAL SPINAL STENOSIS - M48.07 (PRIMARY) RHEUMATOID ARTHRITIS INVOLVING VERTEBRA WITH NEGATIVE RHEUMATOID FACTOR - M06.08 RHEUMATOID ARTHRITIS INVOLVING MULTIPLE SITES, UNSPECIFIED RHEUMATOID FACTOR PRESENCE - M06.9 TREATMENT LUMBOSACRAL SPINAL STENOSIS NOTES: CONTINUE HOME STRETCHING AND EXCERSISE. PROCEDURE CODES FA211 ESTABILISHED PATIENT [facility] FACILITY CHARGE DISPOSITION & COMMUNICATION FOLLOW UP 3 MONTHS ELECTRONICALLY SIGNED BY CARIDAD HENLEY ON 05/27/2018 AT 09:04 AM EST DISCLAIMER : THIS IS A VISIT SUMMARY EXTRACTED FROM THE [employer] CHART. IT IS NOT A COPY OF THE [employer] PROGRESS NOTE. ZINA
== END ==
LOC: M PAIN 10:45
PROVIDERS: ATTEND Nurse Practitioner Family
DX: M48.07 Spinal stenosis, lumbosacral region (principal); G89.29 Other chronic pain; M06.08 Rheumatoid arthritis without rheumatoid factor, vertebrae; M79.7 Fibromyalgia; K21.9 Gastro-esophageal reflux disease without esophagitis; E78.5 Hyperlipidemia, unspecified; E55.9 Vitamin D deficiency, unspecified; F17.210 Nicotine dependence, cigarettes, uncomplicated; M85.00 Fibrous dysplasia (monostotic), unspecified site; Z79.899 Other long term (current) drug therapy; Z88.2 Allergy status to sulfonamides; Z88.6 Allergy status to analgesic agent; Z88.8 Allergy status to other drugs, medicaments and biological substances; Z91.09 Other allergy status, other than to drugs and biological substances

== ENCOUNTER → 2018-08-05 | Outpatient (CLI) | payer MEDICARE ==
[~2018-08-05] MED LIST changes: -/ESOM40CA OR; +NEXI1CAP3 OR
--- NOTE | 2018-08-08 02:04 | ECWPNPC ---
PATIENT NAME: LOGAN CRVAEN : 1960 GENDER: FEMALE VISIT DATE: 08/05/2018 DISCHARGE DATE: 08/05/18 1147 VISIT LOCKED DATE TIME: PHYSICIAN: ANDREE TEJADA PHYSICIAN PAGER NO: [phone] RESOURCE: ANDREE TEJADA REASON FOR APPOINTMENT 1. LOW BACK HISTORY OF PRESENT ILLNESS HISTORY OF PRESENT ILLNESS: PAIN THE PATIENT DESCRIBES THE PAINDURING THE LAST MONTH SEVERITY - PAIN SCORE OF5/10 57 YR OLD FEMALE WITH HX OF CHRONIC LOWER BACK PAIN AND SPINAL FUSION. SHE HAD LESI JAN 2018 AND PT STATES SHE HAS > 50 % IMPROVEMENT FOR 3 MONTHS. PATIENT SAYS SHE IS STILL HAVING PAIN RADIATING DOWN BOTH LEGS AND ON OCCASIONS, WHEN THE PAIN IS SEVERE, HER LEGS FEEL LIKE THEY ARE " GIVING OUT".SHE DENIES FEVER, CHILLS. FALL RISK SCREENING: SCREENING :NO FALLS REPORTED IN THE LAST YEAR CURRENT MEDICATIONS TAKING VITAMIN D 2000 UNIT CAPSULE 1 TABLET ORALLY ONCE A DAY TAKING CANE . MISCELLANEOUS QUAD CANE _ QD R27 TAKING CALCIUM 600 + D 600-400 MG-UNIT TABLET 1 TABLET ORALLY ONCE A DAY TAKING CARAFATE 1 GM TABLET 1 TABLET ON AN EMPTY STOMACH ORALLY AC TID TAKING HYDROXYCHLOROQUINE SULFATE 200 MG TABLET 2 TABLETS WITH FOOD OR MILK ORALLY ONCE A DAY TAKING ARAVA 20 MG TABLET 1 TABLET ORALLY ONCE A DAY TAKING CYANOCOBALAMIN 500 MCG TABLET 1 TABLET ORALLY ONCE A DAY TAKING ATORVASTATIN CALCIUM 20 MG TABLET 1 TABLET ORALLY ONCE A DAY TAKING DERMOTIC 0.01 % OIL 5 DROPS INTO AFFECTED EAR OTIC TWICE A DAY X 5D C FLARES TAKING PREMARIN 0.625 MG/GM CREAM 1 GRAM VAGINAL WEEKLY TAKING ELMIRON 100 MG CAPSULE TAKE ONE CAPSULE BY MOUTH THREE TIMES A DAY ON AN EMPTY STOMACH TAKING COLESTIPOL HCL 1 GM TABLET 1 TAB ORALLY ONCE A DAY TAKING ESOMEPRAZOLE MAGNESIUM 40 MG CAPSULE DELAYED RELEASE 1 CAPSULE ORALLY AC BID TAKING HYDROCODONE-ACETAMINOPHEN 5-325 MG TABLET 1 TABLET NEEDED ORALLY TID PRN MDD = 3 TAKING CARISOPRODOL 350 MG TABLET 1 TABLET NEEDED ORALLY TID PRN, MDD 3 TAKING KEVZARA 150 MG/1.14ML SOLUTION PREFILLED SYRINGE 1.14 ML SUBCUTANEOUS EVERY 2 WEEKS NOT-TAKING TENS UNIT - DIRECTED _ DAILY, M47.22, M06.9 NOT-TAKING ORPHENADRINE CITRATE ER 100 MG TABLET EXTENDED RELEASE 12 HOUR 1 TABLET ORALLY TWICE A DAY DISCONTINUED XELJANZ XR 11 MG TABLET EXTENDED RELEASE 24 HOUR 1 TABLET ORALLY ONCE A DAY MEDICATION LIST REVIEWED AND RECONCILED WITH THE PATIENT PAST MEDICAL HISTORY RA/OSTEOARTHRITIS/FIBROMYALGIA NICOTINE ADDICTION-08/2011 FEV1 2.5L (101%)/RATIO 97% INTERSTITIAL CYSTITIS GERD/DYSPEPSIA-06/2016 NORMAL EGD/COLON/SB CAPSULE-R HYPERLIPIDEMIA 2B ENDOMETRIOSIS 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 SPENCER 2008 FOLLOWS WITH WOMAN TO WOMAN HISTORY OF TUBULAR ADENOMA-NORMAL COLONOSCOPY APRIL 2009 NORMAL COLONOSCOPY C - RANDOM BIOPSIES-[place] COLONOSCOPY 07/18/16 REINDL CERVICAL DJD STATUS POST MULTILEVEL FUSION-01/2010 MRI STABLE ACDF C BASELINE DJD ATROPHIC VAGINITIS OSTEOPENIA VITAMIN D DEFICIENCY CHRONIC SINUSITIS / NONE LATELY RECURRENT UTI / YEARS AGO CHRONIC DIARRHEA STATUS POST LAPAROSCOPIC CHOLECYSTECTOMY JULY 2009//[id number] CHRONIC DRY EYES MEMORY LOSS 2 INSOMNIA, WORK STRESS-12/2011 NORMAL MRI BRAIN S AND NORMAL WORKUP LUMBAR DJD-L2/3 BULGE C L IF HNP C L L2 COMPRESSION, L3/4 SEVERE CCS C B L3 COMPRESSION BY 03/2017 MRI LONG-TERM DISABILITY-TAKEN OOW 08/05/13 [address] BARAJAS, 01/2014 FILLED OUT LTD PAPERWORK FOR GUARDIAN-PATIENT DEFERRED WCE INSOMNIA ALLERGIES METHOTREXATE (ANTI-RHEUMATIC): MIGRANES - SIDE EFFECTS CYMBALTA: RACING PLUSE, SHAKES - ALLERGY WELLBUTRIN: PALPITATIONS, SEVERE - ALLERGY SULFA (FOR ALLERGY USE ONLY): NAUSEA/VOMITING - ALLERGY LYRICA: PALPITATIONS - ALLERGY CELEXA: PALPITATIONS - SIDE EFFECTS ORENCIA: ANAPHYLAXIS - ALLERGY TOPICAL ALOE VERA: SEVERE ITCHING CANNOT TOLERATE ASA BASED PRODUCTS/ NSAIDS: HX STOMACH BLEED - CONTRAINDICATION SURGICAL HISTORY LAPAROSCOPY X2 CHRISTINE BTL 1981 TVH [address] SPENCER 2007 VAGINAL CUFF BX. IRMA CHANDLER NP 03/07 CHOLECYSTECTOMY 06/09 ACDF-C4-T1 10/06 R BREAST [id number] 09/2010 ABOVE L CTR-DR EAST 10/27/14 L4-L5 FUSION/LAMINECTOMY 09/2013 NORMAL EGD/COLON/SB CAPSULE-R 06/2016 FUSION C5 C6 1999 HYSTERECTOMY 1988 BENIGN MOLE REMOVAL 2018 FAMILY HISTORY FATHER: , DM, LUNG CANCER, CAD, DX ALZHEIMER, DIAGNOSED WITH CANCER MOTHER: , COPD SIBLINGS: BROTHER HTN,1/2 BROTHER DM SON(S): HTN PATERNAL GRAND FATHER: , CANCER, COLON MATERNAL AUNT: ALIVE, HYPERLIPIDEMIA 2 BROTHER(S) , 1 SISTER(S) - HEALTHY. 1 SON(S) , 1 DAUGHTER(S) . PGM, MGF C COLON CANCER\\NMOM-GRAVES DISEASE\\NSON-SEIZURES, BRADYCARDIA-PACEMAKER, AFIB. SOCIAL HISTORY GENERAL: TOBACCO USE ARE YOU A:CURRENT SMOKER ARE YOU INTERESTED IN QUITTING?THINKING ABOUT QUITTING HAS CUT DOWN COUNSELED THE PATIENT ON SMOKING CESSATION, EDUCATION [id number]/08/2019 HOW MANY CIGARETTES A DAY DO YOU SMOKE?5 OR LESS HOW SOON AFTER YOU WAKE UP DO YOU SMOKE YOUR FIRST CIGARETTE?AFTER 60 MIN HOW OFTEN DO YOU SMOKE CIGARETTES?EVERY DAY PATIENT COUNSELED ON THE DANGERS OF TOBACCO USE AND URGED TO QUIT:05/10/2018 SMOKING CESSATION INFORMATION GIVEN05/02/2018 ALCOHOL SCREENING DID YOU HAVE A DRINK CONTAINING ALCOHOL IN THE PAST YEAR?YES HOW OFTEN DID YOU HAVE A DRINK CONTAINING ALCOHOL IN THE PAST YEAR?MONTHLY OR LESS (1 POINT) POINTS1 INTERPRETATIONNEGATIVE RECREATIONAL DRUG USE DRUG USE?NO CAFFEINE CAFFEINE USE?YES CUPS DAILY SEXUAL HX HAD SEX IN THE LAST 12 MONTHS (VAGINAL, ORAL, OR ANAL)?NO HAVE YOU EVER HAD AN STD?NO HIV / HEP-C SCREENING HIV TEST OFFERED TO PATIENT:YES DATE OFFERED:06/28/2017 TEST ACCEPTED:NO HEP-C TEST OFFERED TO PATIENT:YES DATE OFFERED:06/28/2017 REASON:PATIENT DECLINED TEST ACCEPTED:NO REASON:PATIENT DECLINED CHEONDOISM [id number] NONE NO JEWISH BELIEFS THAT WOULD IMPACT HEALTH CARE. LANGUAGE LANGUAGES SPOKEN:[place] EDUCATION LEVEL OF EDUCATION:HIGH SCHOOL GED LEARNING BARRIERS / SPECIAL NEEDS CHANGE FROM LAST VISIT?NO BARRIERS TO LEARNING?NO HEARING IMPAIRED?NO VISION IMPAIRED?YES COGNITIVELY IMPAIRED?NO :CORRECTIVE LENSES READINESS TO LEARN?YES LEARNING PREFERENCES?NO LEARNING CAPABILITIES PRESENT?YES EMOTIONAL BARRIERS?YES SPECIAL DEVICES?YES :CANE SAMPLE CLERK NEEDED?NO DOMESTIC VIOLENCE DO YOU FEEL SAFE IN YOUR ENVIRONMENT?YES OCCUPATION: DISABLED. DIET: REGULAR. EXERCISE: LOWER BACK EXERCISES, WALKS TOLERATED. MARITAL STATUS: .. OTHERS AT HOME: DAUGHTER, SON-IN LAW. PAIN CLINIC PFS, CLERGY, PUBLIC HEALTH REFERRALS PFS REFERRAL NEEDED?NO CLERGY REFERRAL NEEDED?NO PUBLIC HEALTH REFERRAL NEEDED?NO WAS THE PROVIDER NOTIFIED OF ANY PERTINENT INFO? N/A HAS THE PATIENT BEEN EDUCATED REGARDING HIS/HER PLAN OF CARE?YES HAS THE PATIENT BEEN EDUCATED REGARDING PAIN, THE RISK FOR PAIN, THE IMPORTANCE OF EFFECTIVE PAIN MANAGEMENT, AND THE PAIN ASSESSMENT PROCESS?YES ADVANCE DIRECTIVE ADVANCE DIRECTIVE DISCUSSED WITH PATIENT:YES HEALTH CARE PROXY RAH ROSARIO [phone] REVIEWED WITH PT 12/07/17 1150 LASREVIEWED WITH PT 01/10/18 1030 LAS02/20/18 REVIEWED WITH PT. AD REVIEWED WITH PT 03/12/18 1159 BVREVIEWED WITH PT 05/10/18 1056 LAS. HOSPITALIZATION/MAJOR DIAGNOSTIC PROCEDURE SURGICAL RELATED REVIEW OF SYSTEMS REVIEWED BY: PROVIDER: DIAMOND . CONSTITUTIONAL: ANY CHANGE IN YOUR MEDICAL CONDITION? NO . CHILLS NO . FEVER NO . INFECTION: DO YOU HAVE NEW INFECTIONS? NO . DO YOU HAVE HISTORY OF MRSA? NO . MUSCULOSKELETAL: ANY NEW PATTERNS OF PAIN OR NUMBNESS? NO . GASTROENTEROLOGY: ANY NEW CHANGE IN BOWEL CONTROL? NO . GENITOURINARY: ANY NEW CHANGE IN BLADDER CONTROL? NO . IS THERE A CHANCE YOU COULD BE ? NO . HEMATOLOGY/LYMPH: DO YOU TAKE ANY BLOOD THINNERS? (FOR EXAMPLE- COUMADIN, PLAVIX, AGGRENOX, PLATEL, PRADAXA, OR XARELTO) NO . WHEN WAS YOUR LAST DOSE? DATE: TIME: . NEUROLOGY: HAVE YOU FALLEN IN THE PAST 12 MONTHS? NO . ANY NEW EXTREMITY NUMBNESS OR WEAKNESS? NO . CARDIOLOGY: DO YOU HAVE A PACEMAKER OR DEFIBRILLATOR? NO . RESPIRATORY: HAVE YOU BEEN SICK IN THE PAST WEEK? NO . FEVER NO . FLU LIKE SYMPTOMS? NO . COUGH NO . INTEGUMENTARY: DO YOU HAVE ANY RASHES OR OPEN SORES? NO . ALLERGIC/IMMUNO: ARE YOU ALLERGIC TO IV DYE? NO . ANY NEW ALLERGIES? NO . PSYCHIATRIC: DO YOU HAVE THOUGHTS OF HURTING YOURSELF OR SOMEONE ELSE? NO . ARE YOU ABUSED, NEGLECTED, OR IN AN UNSAFE ENVIRONMENT? NO . ENDOCRINOLOGY: ARE YOU DIABETIC? NO . OTHER: DO YOU NEED ANY PRESCRIPTIONS? NO . IF YES, PLEASE LIST: ____ . ANY NEW PROBLEMS WITH YOUR MEDICATIONS? NO . WHEN DID YOU LAST EAT? ____ . WHEN DID YOU LAST DRINK? ____ . WHAT DID YOU LAST DRINK? ____ . NAME OF PERSON DRIVING YOU HOME? ____ . DO YOU HAVE ANY OTHER QUESTIONS OR CONCERNS NO . VITAL SIGNS WT 135 LBS, HT 64 IN, BMI 23.17 INDEX, BP 117/59 MM HG, HR 88 /MIN, RR 16 /MIN, TEMP 98.6 F, OXYGEN SAT % 95, REVIEWED BY: EM. EXAMINATION GENERAL EXAMINATION: GENERAL APPEARANCE:NO ACUTE DISTRESS, WELL NOURISHED AND HYDRATED. HEENT:EOMI, NO SCLERAL ICTERUS, NARES PATENT, ORAL MUCOSA MOIST. LUNGS:CLEAR TO AUSCULTATION BILATERALLY, NO WHEEZES, RHONCHI, RALES. HEART:NO MURMURS, REGULAR RATE AND RHYTHM. BACK:CAN WALK ON HEEL AND TOES. TENDERNESS TO PALPATION TO LUMBAR PARASPINAL MUSCLES. PAIN ELICITED WITH ROTATION AND EXTENSION OF LUMBAR SPINE SLR NEG BILATERAL REFLEXES 2+ STRENGHT 4/5 BOTH LE.. ASSESSMENTS DJD (DEGENERATIVE JOINT DISEASE), LUMBAR - M47.816 (PRIMARY) RA (RHEUMATOID ARTHRITIS) - M06.9 UNSPECIFIED MYALGIA AND MYOSITIS - 729.1 TREATMENT DJD (DEGENERATIVE JOINT DISEASE), LUMBAR CLINICAL NOTES: LESI L4-L5, L5-[id number] CLEARANCE TO HOLD RA MEDICATION PRIOR TO PROCEDURE. PROCEDURE CODES FA211 ESTABILISHED PATIENT [facility] CHARGE DISPOSITION & COMMUNICATION FOLLOW UP POST PROCEDURE (REASON: LESI L4-L5, L5-S1) ELECTRONICALLY SIGNED BY CARIDAD OROURKE ON 08/06/2018 AT 08:23 AM EDT DISCLAIMER : THIS IS A VISIT SUMMARY EXTRACTED FROM THE [email or web address] CHART. IT IS NOT A COPY OF THE [employer] PROGRESS NOTE. MTDD
== END ==
LOC: M PAIN 10:30
PROVIDERS: ATTEND Nurse Practitioner Family
DX: M47.816 Spondylosis without myelopathy or radiculopathy, lumbar region (principal); M06.9 Rheumatoid arthritis, unspecified; G89.29 Other chronic pain; M19.90 Unspecified osteoarthritis, unspecified site; M79.7 Fibromyalgia; K21.9 Gastro-esophageal reflux disease without esophagitis; E78.5 Hyperlipidemia, unspecified; E55.9 Vitamin D deficiency, unspecified; G47.00 Insomnia, unspecified; F17.210 Nicotine dependence, cigarettes, uncomplicated; Z88.8 Allergy status to other drugs, medicaments and biological substances; Z88.2 Allergy status to sulfonamides; Z88.6 Allergy status to analgesic agent; Z91.048 Other nonmedicinal substance allergy status; Z79.899 Other long term (current) drug therapy

== ENCOUNTER → 2018-08-13 | Outpatient (CLI) | payer MEDICARE ==
--- NOTE | 2018-08-13 12:24 | REP ---
Right shoulder: Three views. History: Pain. Findings: Three views of the right shoulder demonstrate normal alignment of the glenohumeral and acromioclavicular joints. The patient is status post lower cervical spine fusion plating. Periarticular soft tissues are unremarkable. No erosive changes seen. Impression: Negative radiographs of the right shoulder. Electronically Signed by Georgi Rudolph MD 08/13/2018 12:15 P
--- NOTE | 2018-08-13 12:29 | REP ---
CERVICAL SPINE, NINE VIEWS: HISTORY: Neck pain. The patient is status post C4-T1 anterior spinal fusion. Metal hardware and bone graft material are present. There is no acute fracture. The C3-4 intervertebral disc is decreased in height consistent with disc degeneration. An osteophyte is present on C3. There is narrowing of the left C4 and 7 and right C7 neural foramina secondary to uncinate process hypertrophy. There are 2 mm of anterior subluxation of C3 on 4. This is unchanged with flexion and reduces to 1.5 mm with extension. IMPRESSION: 1. The patient is status post C4-T1 anterior spinal fusion. 2. Degenerative change as described above. Electronically Signed by Daniel Matthew MD 08/13/2018 12:32 P
== END ==
LOC: M WUC 10:18
PROVIDERS: ATTEND Nurse Practitioner Family
DX: M47.22 Other spondylosis with radiculopathy, cervical region (principal)

== ENCOUNTER → 2018-08-28 | Outpatient (CLI) | payer MEDICARE ==
[~2018-08-28] MED LIST changes: +ISOVUE-M 300 61% 15ML VIAL (Q9967) As Ordered ONE; +LIDOCAINE 1% SDV INJ 30 ML VIAL As Ordered ONE; +diazePAM 5 MG TAB As Ordered ONE; +methylPREDNISolone SUSP 40 MG/ML (DEPO-medrol) VIAL (J1030) As Ordered ONE; +oxyCODONE 5MG TAB As Ordered ONE
--- NOTE | 2018-08-30 11:07 | REP ---
Fluoro guided spinal injection Images were reviewed with Dr. Kennedy. The portable C-arm was provided in the OR for Dr. Santosh Roy for fluoroscopic guidance. Three intraoperative last image hold fluoro spot films were obtained for needle placement verification for lumbar epidural injection. The films are on the PACS system and are available for review. 11 seconds of fluoroscopy time was utilized for this procedure. Reviewed by REYMUNDO Bhagat 08/28/2018 04:46 P Electronically Signed by aHrish Kennedy MD 08/30/2018 10:57 A
--- NOTE | 2018-09-16 00:04 | ECWPNPC ---
PATIENT NAME: LOGAN CRAVEN : 1960 GENDER: FEMALE VISIT DATE: 08/28/2018 DISCHARGE DATE: 08/28/18 0000 VISIT LOCKED DATE TIME: PHYSICIAN: KENDRA CRAFT MD PHYSICIAN PAGER NO: [phone] RESOURCE: KENDRA CRAFT MD REASON FOR APPOINTMENT 1. LESI HISTORY OF PRESENT ILLNESS HISTORY OF PRESENT ILLNESS: PAIN THE PATIENT DESCRIBES THE PAIN... FALL RISK SCREENING: SCREENING :NO FALLS REPORTED IN THE LAST YEAR CURRENT MEDICATIONS TAKING VITAMIN D 2000 UNIT TABLET 1 TABLET ORALLY ONCE A DAY, NOTES: 08/27/18 TAKING CALCIUM + D 500-1000-40 MG-UNT-MCG TABLET CHEWABLE DIRECTED ORALLY , NOTES: 08/27/18 TAKING CARAFATE 1 GM TABLET 1 TABLET ON AN EMPTY STOMACH ORALLY TWICE A DAY, NOTES: 08/28/18 AM TAKING HYDROXYCHLOROQUINE SULFATE 200 MG TABLET 1 TABLET WITH FOOD OR MILK ORALLY ONCE A DAY, NOTES: 3 WEEKS AGO TAKING ARAVA 20 MG TABLET 1 TABLET ORALLY ONCE A DAY, NOTES: 3 WEEKS AGO TAKING VITAMIN B12 100 MCG TABLET 500MCG ORALLY DAILY, NOTES: 08/27/18 TAKING ATORVASTATIN CALCIUM 20 MG TABLET 1 TABLET ORALLY ONCE A DAY, NOTES: 08/28/18 AM TAKING PREMARIN 0.625 MG/GM CREAM DIRECTED VAGINAL , NOTES: NONE LATELY TAKING ELMIRON 100 MG CAPSULE 1 CAPSULE ON AN EMPTY STOMACH ORALLY THREE TIMES A DAY, NOTES: 08/28/18 AM TAKING COLESTIPOL HCL 1 GM TABLET 2 TABLETS ORALLY ONCE A DAY, NOTES: 08/28/18 AM TAKING ESOMEPRAZOLE MAGNESIUM 40 MG CAPSULE DELAYED RELEASE 1 CAPSULE ORALLY ONCE A DAY, NOTES: 08/28/18 AM TAKING NORCO 5-325 MG TABLET 1 TABLET NEEDED ORALLY EVERY 6 HRS, NOTES: 08/27/18 TAKING SOMA 350 MG TABLET 1 TABLET NEEDED ORALLY FOUR TIMES A DAY, NOTES: 08/27/18 TAKING KEVZARA 150 MG/1.14ML SOLUTION PREFILLED SYRINGE 1.14 ML SUBCUTANEOUS , NOTES: 3 WEEKS AGO MEDICATION LIST REVIEWED AND RECONCILED WITH THE PATIENT PAST MEDICAL HISTORY RA/OSTEOARTHRITIS/FIBROMYALGIA NICOTINE ADDICTION-08/2011 FEV1 2.5L (101%)/RATIO 97% INTERSTITIAL CYSTITIS GERD/DYSPEPSIA-06/2016 NORMAL EGD/COLON/SB CAPSULE-R HYPERLIPIDEMIA 2B ENDOMETRIOSIS 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 SPENCER 2008 FOLLOWS WITH WOMAN TO WOMAN HISTORY OF TUBULAR ADENOMA-NORMAL COLONOSCOPY APRIL 2009 NORMAL COLONOSCOPY C - RANDOM BIOPSIES-[place] COLONOSCOPY 07/18/16 REINDL CERVICAL DJD STATUS POST MULTILEVEL FUSION-01/2010 MRI STABLE ACDF C BASELINE DJD ATROPHIC VAGINITIS OSTEOPENIA VITAMIN D DEFICIENCY CHRONIC SINUSITIS / NONE LATELY RECURRENT UTI / YEARS AGO CHRONIC DIARRHEA STATUS POST LAPAROSCOPIC CHOLECYSTECTOMY JULY 2009//[id number] CHRONIC DRY EYES MEMORY LOSS 2 INSOMNIA, WORK STRESS-12/2011 NORMAL MRI BRAIN S AND NORMAL WORKUP LUMBAR DJD-L2/3 BULGE C L IF HNP C L L2 COMPRESSION, L3/4 SEVERE CCS C B L3 COMPRESSION BY 03/2017 MRI LONG-TERM DISABILITY-TAKEN OOW 08/05/13 [address] BARAJAS, 01/2014 FILLED OUT LTD PAPERWORK FOR GUARDIAN-PATIENT DEFERRED WCE INSOMNIA ALLERGIES METHOTREXATE (ANTI-RHEUMATIC): MIGRANES - SIDE EFFECTS CYMBALTA: RACING PLUSE, SHAKES - ALLERGY WELLBUTRIN: PALPITATIONS, SEVERE - ALLERGY SULFA (FOR ALLERGY USE ONLY): NAUSEA/VOMITING - ALLERGY LYRICA: PALPITATIONS - ALLERGY CELEXA: PALPITATIONS - SIDE EFFECTS ORENCIA: ANAPHYLAXIS - ALLERGY TOPICAL ALOE VERA: SEVERE ITCHING CANNOT TOLERATE ASA BASED PRODUCTS/ NSAIDS: HX STOMACH BLEED - CONTRAINDICATION SURGICAL HISTORY LAPAROSCOPY X2 CHRISTINE BTL 1982 TVH [address] SPENCER 2007 VAGINAL CUFF BX. IRMA CHANDLER,MARIO 03/07 CHOLECYSTECTOMY 06/09 ACDF-C4-T1 10/06 R BREAST [id number] 09/2010 ABOVE L CTR-DR EAST 10/27/14 L4-L5 FUSION/LAMINECTOMY 09/2013 NORMAL EGD/COLON/SB CAPSULE-R 06/2016 FUSION C5 C6 1998 HYSTERECTOMY 1988 BENIGN MOLE REMOVAL 2018 FAMILY HISTORY FATHER: , DM, LUNG CANCER, CAD, DX ALZHEIMER, DIAGNOSED WITH CANCER MOTHER: , COPD SIBLINGS: BROTHER HTN,1/2 BROTHER DM SON(S): HTN PATERNAL GRAND FATHER: , CANCER, COLON MATERNAL AUNT: ALIVE, HYPERLIPIDEMIA 2 BROTHER(S) , 1 SISTER(S) - HEALTHY. 1 SON(S) , 1 DAUGHTER(S) . PGM, MGF C COLON CANCER\\\\NMOM-GRAVES DISEASE\\\\NSON-SEIZURES, BRADYCARDIA-PACEMAKER, AFIB. SOCIAL HISTORY GENERAL: TOBACCO USE ARE YOU A:CURRENT SMOKER ARE YOU INTERESTED IN QUITTING?THINKING ABOUT QUITTING HAS CUT DOWN COUNSELED THE PATIENT ON SMOKING CESSATION, EDUCATION [id number]/01/2019 HOW MANY CIGARETTES A DAY DO YOU SMOKE?5 OR LESS HOW SOON AFTER YOU WAKE UP DO YOU SMOKE YOUR FIRST CIGARETTE?AFTER 60 MIN HOW OFTEN DO YOU SMOKE CIGARETTES?EVERY DAY PATIENT COUNSELED ON THE DANGERS OF TOBACCO USE AND URGED TO QUIT:05/10/2018 SMOKING CESSATION INFORMATION GIVEN05/02/2018 HIV / HEP-C SCREENING HIV TEST OFFERED TO PATIENT:YES DATE OFFERED:06/28/2017 TEST ACCEPTED:NO HEP-C TEST OFFERED TO PATIENT:YES DATE OFFERED:06/28/2017 REASON:PATIENT DECLINED TEST ACCEPTED:NO REASON:PATIENT DECLINED OTHERS AT HOME: DAUGHTER, SON-IN LAW. EDUCATION LEVEL OF EDUCATION:HIGH SCHOOL GED DIET: REGULAR. LANGUAGE LANGUAGES SPOKEN:KENYAN DOMESTIC VIOLENCE DO YOU FEEL SAFE IN YOUR ENVIRONMENT?YES RECREATIONAL DRUG USE DRUG USE?NO EXERCISE: LOWER BACK EXERCISES, WALKS TOLERATED. LEARNING BARRIERS / SPECIAL NEEDS CHANGE FROM LAST VISIT?NO BARRIERS TO LEARNING?NO HEARING IMPAIRED?NO VISION IMPAIRED?YES COGNITIVELY IMPAIRED?NO :CORRECTIVE LENSES READINESS TO LEARN?YES LEARNING PREFERENCES?NO LEARNING CAPABILITIES PRESENT?YES EMOTIONAL BARRIERS?YES SPECIAL DEVICES?YES :CANE MENTAL HEALTH WORKER NEEDED?NO PAIN CLINIC PFS, CLERGY, PUBLIC HEALTH REFERRALS PFS REFERRAL NEEDED?NO CLERGY REFERRAL NEEDED?NO PUBLIC HEALTH REFERRAL NEEDED?NO WAS THE PROVIDER NOTIFIED OF ANY PERTINENT INFO? N/A HAS THE PATIENT BEEN EDUCATED REGARDING HIS/HER PLAN OF CARE?YES HAS THE PATIENT BEEN EDUCATED REGARDING PAIN, THE RISK FOR PAIN, THE IMPORTANCE OF EFFECTIVE PAIN MANAGEMENT, AND THE PAIN ASSESSMENT PROCESS?YES CAFFEINE CAFFEINE USE?YES CUPS DAILY ADVANCE DIRECTIVE ADVANCE DIRECTIVE DISCUSSED WITH PATIENT:YES HEALTH CARE PROXY RAH ROSARIO [phone] ORIENTAL ORTHODOX [id number] NONE NO ISLAM BELIEFS THAT WOULD IMPACT HEALTH CARE. MARITAL STATUS: .. ALCOHOL SCREENING DID YOU HAVE A DRINK CONTAINING ALCOHOL IN THE PAST YEAR?YES HOW OFTEN DID YOU HAVE A DRINK CONTAINING ALCOHOL IN THE PAST YEAR?MONTHLY OR LESS (1 POINT) POINTS1 INTERPRETATIONNEGATIVE OCCUPATION: DISABLED. SEXUAL HX HAD SEX IN THE LAST 12 MONTHS (VAGINAL, ORAL, OR ANAL)?NO HAVE YOU EVER HAD AN STD?NO REVIEWED WITH PT 12/07/17 1150 LASREVIEWED WITH PT 01/10/18 1030 LAS02/20/18 REVIEWED WITH PT. AD REVIEWED WITH PT 03/12/18 1159 BVREVIEWED WITH PT 05/10/18 1056 LAS. HOSPITALIZATION/MAJOR DIAGNOSTIC PROCEDURE SURGICAL RELATED REVIEW OF SYSTEMS REVIEWED BY: PROVIDER: . CONSTITUTIONAL: ANY CHANGE IN YOUR MEDICAL CONDITION? NO . CHILLS NO . FEVER NO . INFECTION: DO YOU HAVE NEW INFECTIONS? NO . DO YOU HAVE HISTORY OF MRSA? NO . MUSCULOSKELETAL: ANY NEW PATTERNS OF PAIN OR NUMBNESS? NO . GASTROENTEROLOGY: ANY NEW CHANGE IN BOWEL CONTROL? NO . GENITOURINARY: ANY NEW CHANGE IN BLADDER CONTROL? NO . IS THERE A CHANCE YOU COULD BE ? NO . HEMATOLOGY/LYMPH: DO YOU TAKE ANY BLOOD THINNERS? (FOR EXAMPLE- COUMADIN, PLAVIX, AGGRENOX, PLATEL, PRADAXA, OR XARELTO) NO . WHEN WAS YOUR LAST DOSE? DATE: TIME: . NEUROLOGY: HAVE YOU FALLEN IN THE PAST 12 MONTHS? NO . ANY NEW EXTREMITY NUMBNESS OR WEAKNESS? NO . CARDIOLOGY: DO YOU HAVE A PACEMAKER OR DEFIBRILLATOR? NO . RESPIRATORY: HAVE YOU BEEN SICK IN THE PAST WEEK? NO . FEVER NO . FLU LIKE SYMPTOMS? NO . COUGH NO . INTEGUMENTARY: DO YOU HAVE ANY RASHES OR OPEN SORES? NO . ALLERGIC/IMMUNO: ARE YOU ALLERGIC TO IV DYE? NO . ANY NEW ALLERGIES? NO . PSYCHIATRIC: DO YOU HAVE THOUGHTS OF HURTING YOURSELF OR SOMEONE ELSE? NO . ARE YOU ABUSED, NEGLECTED, OR IN AN UNSAFE ENVIRONMENT? NO . ENDOCRINOLOGY: ARE YOU DIABETIC? NO . OTHER: DO YOU NEED ANY PRESCRIPTIONS? NO . IF YES, PLEASE LIST: ____ . ANY NEW PROBLEMS WITH YOUR MEDICATIONS? NO . WHEN DID YOU LAST EAT? 08/28/18 0730 . WHEN DID YOU LAST DRINK? 08/28/18 1130 . WHAT DID YOU LAST DRINK? WATER . NAME OF PERSON DRIVING YOU HOME? KATIE . DO YOU HAVE ANY OTHER QUESTIONS OR CONCERNS NO . VITAL SIGNS WT 134.8 LBS, HT 64 IN, BMI 23.14 INDEX, BP 145/61 MM HG, HR 87 /MIN, RR 18 /MIN, TEMP 96.6 F, OXYGEN SAT % 97%, NA INITIALS AW 1548, REVIEWED BY: EM. 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 KENDRA CRAFT BUTTON AND BUCKLE MAKER NONE ANESTHESIA LOCAL PRE PROCEDURE NOTE THE PATIENT HAS A HISTORY OF CHRONIC LOW BACK PAIN. I EVALUATED THE PATIENT AND REVIEWED THE CHART. I WENT OVER THE RISKS, ALTERNATIVES, AND BENEFITS ASSOCIATED WITH THIS PROCEDURE. THE PATIENT WOULD LIKE TO PROCEED AND GIVE CONSENT TO PERFORMED THE PROCEDURE. THE PATIENT DENIES UNEXPLAINABLE WEIGHT LOSS, FEVER, CHILLS, OR NEW CHANGES IN URINARY OR BOWEL CONTROL. DESCRIPTION OF PROCEDURE THE PATIENT WAS BROUGHT TO THE PROCEDURE ROOM AND PLACED IN THE PRONE POSITION. THE LUMBOSACRAL AREA WAS CLEANED WITH BETADINE SOLUTION AND DRAPED ASEPTICALLY. THE PROCEDURE WAS DONE UNDER STERILE CONDITIONS. I CHECKED LATERALITY AND THE LEVEL WHERE THE PROCEDURE WAS GOING TO BE PERFORMED WITH THE PATIENT AND THE SUPPORTING STAFF AT THE MOMENT OF THE TIME OUT IN THE PROCEDURE ROOM. UNDER FLUOROSCOPIC GUIDANCE, THE TARGET POINT WAS SELECTED AT THE INTERLAMINAR LEVEL OF L5-S1. LIDOCAINE WAS USED TO NUMB THE SKIN AND THE SUBCUTANEOUS TISSUE BELOW IT. EPIDURAL TUOHY NEEDLE, 17-GAUGE, WAS ADVANCED UNDER FLUOROSCOPIC GUIDANCE AND FOLLOWING PATIENT FEEDBACK UNTIL THE EPIDURAL SPACE WAS REACHED, 7 CM DEEP INTO THE SKIN BY THE LOSS OF RESISTANCE TECHNIQUE. ISOVUE M DYE 30%, 0.25 ML, WAS INJECTED SHOWING ADEQUATE SPREAD OF THE DYE. THEN, A SOLUTION OF 3 ML OF NORMAL SALINE WITH DEPO-MEDROL 60 MG WAS INJECTED SLOWLY FOLLOWING PATIENT FEEDBACK. THERE WAS NO EVIDENCE OF BLOOD, PARESTHESIA OR CEREBROSPINAL FLUID DURING THE PROCEDURE. THE PATIENT WAS SENT TO THE RECOVERY ROOM. THE PATIENT WAS MOVING THE EXTREMITIES AND DOING WELL. THERE WAS NO COMPLICATION DURING THE PROCEDURE. FLUOROSCOPY TIME WAS 11 SECONDS. POST PROCEDURE NOTE THE PATIENT WILL BE SEEN IN A FOLLOW UP IN THE NEXT FEW WEEKS. INSTRUCTIONS WERE GIVEN, QUESTIONS WERE ANSWERED, AND THE PATIENT EXPRESSED UNDERSTANDING AND AGREES WITH THE PLAN. I, MARY VILLA, DOCUMENTED THE ABOVE INFORMATION ACTING A SCRIBE FOR DR. CRAFT. I HAVE REVIEWED THE ABOVE DOCUMENT, WRITTEN BY MARY HIGGINSIBPeterson AND I VERIFY THAT IT IS ACCURATE. PROCEDURE CODES 12860 LUMBAR/SACRAL W/ IMAGING 6045F RADXPS IN END [id number] PXD DISPOSITION & COMMUNICATION FOLLOW UP 2 WEEKS ELECTRONICALLY SIGNED BY KENDRA CRAFT MD, MD ON 09/15/2018 AT 07:24 PM EDT DISCLAIMER : THIS IS A VISIT SUMMARY EXTRACTED FROM THE [employer] CHART. IT IS NOT A COPY OF THE [employer] PROGRESS NOTE. MTDD
== END ==
LOC: M PAIN 13:45
PROVIDERS: ATTEND Anesthesiology
DX: G89.29 Other chronic pain (principal); M51.17 Intervertebral disc disorders with radiculopathy, lumbosacral region; M96.1 Postlaminectomy syndrome, not elsewhere classified; M06.9 Rheumatoid arthritis, unspecified; M19.90 Unspecified osteoarthritis, unspecified site; M79.7 Fibromyalgia; K21.9 Gastro-esophageal reflux disease without esophagitis; E55.9 Vitamin D deficiency, unspecified; F17.210 Nicotine dependence, cigarettes, uncomplicated; Z79.899 Other long term (current) drug therapy; Z88.2 Allergy status to sulfonamides; Z88.6 Allergy status to analgesic agent; Z88.8 Allergy status to other drugs, medicaments and biological substances
CPT/HCPCS: 62323; J1030; Q9967

== ENCOUNTER → 2018-09-30 | Outpatient (CLI) | payer MEDICARE ==
[~2018-09-30] MED LIST changes: -ISOVUE-M 300 61% 15ML VIAL (Q9967) As Ordered ONE; -LIDOCAINE 1% SDV INJ 30 ML VIAL As Ordered ONE; -diazePAM 5 MG TAB As Ordered ONE; -methylPREDNISolone SUSP 40 MG/ML (DEPO-medrol) VIAL (J1030) As Ordered ONE; -oxyCODONE 5MG TAB As Ordered ONE
[2018-09-30 17:50] LABS: ALBUMIN 3.9 GM/DL (3.2-5.2); ALT/SGPT 28 U/L (12-78); BILIRUBIN,TOTAL 0.6 MG/DL (0.2-1.0); BLOOD UREA NITROGEN 9 MG/DL (7-18); CALCIUM LEVEL 8.5 MG/DL (8.5-10.1); CARBON DIOXIDE LEVEL 31 MEQ/L (21-32); CHLORIDE LEVEL 106 MEQ/L (98-107); CREATININE FOR GFR 0.92 MG/DL (0.55-1.30); GLOMERULAR FILTRATION RATE > 60.0 (>51); GLUCOSE, FASTING 115 MG/DL (70-100); POTASSIUM SERUM 4.3 MEQ/L (3.5-5.1); SODIUM LEVEL 142 MEQ/L (136-145); TOTAL PROTEIN 7.2 GM/DL (6.4-8.2)
[2018-09-30 17:58] LABS: PTH INTACT 70.1 PG/ML (18.5-88.0); TOTAL 25(OH) VITAMIN D 46.6 NG/ML (30.0-100.0)
[2018-09-30 17:59] LABS: VITAMIN B12 LEVEL > 2000 PG/ML (247-911)
[2018-09-30 18:05] LABS: BASO % 0.9 % (0.0-1.0); EOS % 1.2 % (0.0-3.0); HEMATOCRIT 39.3 % (36.0-47.0); HEMOGLOBIN 12.6 g/dl (12.0-15.5); LYMPH % 29.1 % (24.0-44.0); MEAN CORPUSCULAR HEMOGLOBIN 32.9 pg (27.0-33.0); MEAN CORPUSCULAR HGB CONC 32.1 g/dl (32.0-36.5); MEAN CORPUSCULAR VOLUME 102.6 fl (80.0-96.0); MONO # 0.3 10^3/uL (0.0-0.8); MONO % 8.8 % (0.0-5.0); NEUTROPHILS % 59.7 % (36.0-66.0); PLATELET COUNT, AUTOMATED 175 10^3/uL (150-450); RED BLOOD COUNT 3.83 10^6/uL (4.00-5.40); WHITE BLOOD COUNT 3.4 10^3/uL (4.0-10.0)
== END ==
LOC: M WUC 14:09
PROVIDERS: ATTEND Family Medicine
DX: E53.8 Deficiency of other specified B group vitamins (principal); E55.9 Vitamin D deficiency, unspecified

== ENCOUNTER → 2018-10-01 | Outpatient (CLI) | payer MEDICARE | LOC: M PAIN 09:45 | PROVIDERS: ATTEND Nurse Practitioner Family | DX: M48.07 Spinal stenosis, lumbosacral region (principal); M06.9 Rheumatoid arthritis, unspecified; Z79.891 Long term (current) use of opiate analgesic; Z79.899 Other long term (current) drug therapy; F17.210 Nicotine dependence, cigarettes, uncomplicated; Z88.2 Allergy status to sulfonamides; Z88.8 Allergy status to other drugs, medicaments and biological substances ==

== ENCOUNTER → 2018-10-02 | Outpatient (REF) | payer MEDICARE | LOC: M SFHCWAGY 12:06 | PROVIDERS: ATTEND Nurse Practitioner Family | DX: Z87.411 Personal history of vaginal dysplasia (principal); R87.625 Unsatisfactory cytologic smear of vagina; Z91.89 Other specified personal risk factors, not elsewhere classified ==

== ENCOUNTER → 2018-10-02 | Outpatient (CLI) | payer MEDICARE ==
--- NOTE | 2018-10-02 13:28 | REPMRS ---
Patient History The patient states she had a clinical breast exam in 09/2018. Family history of colorectal cancer in paternal grandfather, colorectal cancer in maternal grandmother, colorectal cancer at age 50 or over in maternal aunt, pancreatic cancer at age 50 or over in maternal uncle. Benign stereotatic breast biopsy of the right breast, October 10, 2010. Taking unspecified hormones for 9 years. 3D TOMOSYNTHESIS WAS PERFORMED. Digital Woman Screen Mammo: October 02, 2018 - Exam #: [id number] Bilateral CC and MLO view(s) were taken. Technologist: Lizy Erickson, Technologist Prior study comparison: October 01, 2017, digital woman screen mammo performed at [facility]. September 28, 2016, digital woman screen mammo performed at [facility]. FINDINGS: The breast tissue is heterogeneously dense. This may lower the sensitivity of mammography. There has been no change in the appearance of the mammogram from the prior studies. There is a moderate amount of residual fibroglandular tissue which is fairly symmetric. There is no interval development of dominant mass, areas of architectural distortion, or clustered microcalcification typical of malignancy. Assessment: BI-RADS/ACR category 1 mammogram. Negative Mammogram. Recommendation Routine screening mammogram in 1 year (for women over age 40). This mammogram was interpreted with the aid of an FDA-approved computer-aided dectection system. Electronically Signed By: Harish Kennedy MD 10/02/18 1101
== END ==
LOC: M WHC 12:09
PROVIDERS: ATTEND Nurse Practitioner Family
DX: Z12.31 Encounter for screening mammogram for malignant neoplasm of breast (principal); Z80.0 Family history of malignant neoplasm of digestive organs; Z86.018 Personal history of other benign neoplasm; Z92.29 Personal history of other drug therapy; Z91.89 Other specified personal risk factors, not elsewhere classified
CPT/HCPCS: 77063; 77067; G0101; G0123

== ENCOUNTER → 2018-10-14 | Outpatient (CLI) | payer MEDICARE ==
--- NOTE | 2018-10-14 12:56 | REP ---
Low-dose lung screening chest CT: Comparison is the chest CT dated 03/10/2008. The study is performed without IV contrast. The images are presented at lung windowing only. There are no nodules or masses. There are no infiltrates or effusions. Impression: Category zero low-dose lung screening chest CT. No lung masses or nodules are identified. Depending on risk factors, consider annual follow-up low-dose lung screening chest CT. Electronically Signed by Harish Vogel MD 10/14/2018 12:48 P
== END ==
LOC: M RAD 09:30
PROVIDERS: ATTEND Family Medicine
DX: Z12.2 Encounter for screening for malignant neoplasm of respiratory organs (principal); Z87.891 Personal history of nicotine dependence

== ENCOUNTER → 2018-12-12 | Outpatient (CLI) | payer MEDICARE ==
[~2018-12-12] MED LIST changes: +CYAN100049 PO; -VITA10002 PO
--- NOTE | 2018-12-17 00:58 | ECWPNPC ---
PATIENT NAME: LOGAN CRAVEN : 1960 GENDER: FEMALE VISIT DATE: 12/12/2018 DISCHARGE DATE: 12/12/18 1217 VISIT LOCKED DATE TIME: PHYSICIAN: BRADY SHABAZZ PHYSICIAN PAGER NO: [phone] RESOURCE: BRADY SHABAZZ REASON FOR APPOINTMENT 1. LOW BACK HISTORY OF PRESENT ILLNESS HISTORY OF PRESENT ILLNESS: PAIN THE PATIENT DESCRIBES THE PAIN... 58 YEAR OLD FEMALE IN FOR POST LESI FOLLOW UP. SHE FEELS THE PROCEDURE WORKED WELL BUT THAT HER PAIN IS RETURNING. HER PAIN PRIOR TO THE PROCEDURE WAS 8/10 AND WENT LOW 2/10. SHE RATES HER PAIN AT A 5/10 CURRENTLY AND DESCRIBES IT ACHING AND BURNING. FALL RISK SCREENING: SCREENING :NO FALLS REPORTED IN THE LAST YEAR CURRENT MEDICATIONS TAKING VITAMIN D 2000 UNIT CAPSULE 1 TABLET ORALLY ONCE A DAY TAKING CANE . MISCELLANEOUS QUAD CANE _ QD R27 TAKING CALCIUM 600 + D 600-400 MG-UNIT TABLET 1 TABLET ORALLY ONCE A DAY TAKING CARAFATE 1 GM TABLET 1 TABLET ON AN EMPTY STOMACH ORALLY AC TID TAKING ESOMEPRAZOLE MAGNESIUM 40 MG CAPSULE DELAYED RELEASE 1 CAPSULE ORALLY AC BID TAKING HYDROCODONE-ACETAMINOPHEN 5-325 MG TABLET 1 TABLET NEEDED ORALLY TID PRN MDD = 3 TAKING CARISOPRODOL 350 MG TABLET 1 TABLET NEEDED ORALLY TID PRN, MDD 3 TAKING COLESTIPOL HCL 1 GM TABLET 1 TAB ORALLY ONCE A DAY TAKING ATORVASTATIN CALCIUM 20 MG TABLET 1 TABLET ORALLY ONCE A DAY TAKING PREMARIN 0.625 MG/GM CREAM 1 GRAM VAGINAL WEEKLY TAKING CALCIUM + D 500-1000-40 MG-UNT-MCG TABLET CHEWABLE DIRECTED ORALLY TAKING HYDROXYCHLOROQUINE SULFATE 200 MG TABLET 1 TAB ALT WITH TWO TABS EVERY OTHER DAY ORALLY ONCE A DAY TAKING ARAVA 20 MG TABLET 1 TABLET ORALLY ONCE A DAY TAKING VITAMIN B12 100 MCG TABLET 500MCG ORALLY 1 EVERY 5 DAYS TAKING KEVZARA 150 MG/1.14ML SOLUTION PREFILLED SYRINGE 1.14 ML SUBCUTANEOUS EVERY 2 WEEKS TAKING HYDROXYCHLOROQUINE SULFATE 200 MG TABLET 2 TABLETS WITH FOOD OR MILK ORALLY ONCE A DAY TAKING ARAVA 20 MG TABLET 1 TABLET ORALLY ONCE A DAY TAKING ELMIRON 100 MG CAPSULE TAKE ONE CAPSULE BY MOUTH THREE TIMES A DAY ON AN EMPTY STOMACH NOT-TAKING DERMOTIC 0.01 % OIL 5 DROPS INTO AFFECTED EAR OTIC TWICE A DAY X 5D C FLARES NOT-TAKING ORPHENADRINE CITRATE ER 100 MG TABLET EXTENDED RELEASE 12 HOUR 1 TABLET ORALLY TWICE A DAY NOT-TAKING VITAMIN D 2000 UNIT TABLET 1 TABLET ORALLY ONCE A DAY NOT-TAKING COLESTIPOL HCL 1 GM TABLET 1 TAB ORALLY ONCE A DAY NOT-TAKING ESOMEPRAZOLE MAGNESIUM 40 MG CAPSULE DELAYED RELEASE 1 CAPSULE ORALLY BID NOT-TAKING ATORVASTATIN CALCIUM 20 MG TABLET 1 TABLET ORALLY ONCE A DAY NOT-TAKING CARAFATE 1 GM TABLET 1 TABLET ON AN EMPTY STOMACH ORALLY AC TID NOT-TAKING CYANOCOBALAMIN 100 MCG TABLET 1 TABLET ORALLY ONCE A DAY NOT-TAKING NORCO 5-325 MG TABLET 1 TABLET ORALLY TID PRN, MDD 3 NOT-TAKING SOMA 350 MG TABLET 3 TABS ORALLY DAILY MEDICATION LIST REVIEWED AND RECONCILED WITH THE PATIENT PAST MEDICAL HISTORY RA/OSTEOARTHRITIS/FIBROMYALGIA NICOTINE ADDICTION-08/2011 FEV1 2.5L (101%)/RATIO 97%-1 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 GERD/DYSPEPSIA-06/2016 NORMAL EGD/COLON/SB CAPSULE-R HYPERLIPIDEMIA 2B ENDOMETRIOSIS 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 SPENCER 2008 FOLLOWS WITH WOMAN TO WOMAN HISTORY OF TUBULAR ADENOMA-NORMAL COLONOSCOPY APRIL 2009 NORMAL COLONOSCOPY C - RANDOM BIOPSIES-[place] COLONOSCOPY 07/18/16 REINDL CERVICAL DJD STATUS POST MULTILEVEL FUSION-01/2010 MRI STABLE ACDF C BASELINE DJD ATROPHIC VAGINITIS OSTEOPENIA VITAMIN D DEFICIENCY CHRONIC SINUSITIS / NONE LATELY RECURRENT UTI / YEARS AGO CHRONIC DIARRHEA STATUS POST LAPAROSCOPIC CHOLECYSTECTOMY JULY 2009//[id number] CHRONIC DRY EYES MEMORY LOSS 2 INSOMNIA, WORK STRESS-12/2011 NORMAL MRI BRAIN S AND NORMAL WORKUP LUMBAR DJD-L2/3 BULGE C L IF HNP C L L2 COMPRESSION, L3/4 SEVERE CCS C B L3 COMPRESSION BY 03/2017 MRI LONG-TERM DISABILITY-TAKEN OOW 08/05/[address] BARAJAS, 01/2014 FILLED OUT LTD PAPERWORK FOR GUARDIAN-PATIENT DEFERRED WCE INSOMNIA ALLERGIES METHOTREXATE (ANTI-RHEUMATIC): MIGRANES - SIDE EFFECTS CYMBALTA: RACING PLUSE, SHAKES - ALLERGY WELLBUTRIN: PALPITATIONS, SEVERE - ALLERGY SULFA (FOR ALLERGY USE ONLY): NAUSEA/VOMITING - ALLERGY LYRICA: PALPITATIONS - ALLERGY CELEXA: PALPITATIONS - SIDE EFFECTS ORENCIA: ANAPHYLAXIS - ALLERGY TOPICAL ALOE VERA: SEVERE ITCHING CANNOT TOLERATE ASA BASED PRODUCTS/ NSAIDS: HX STOMACH BLEED - CONTRAINDICATION SURGICAL HISTORY LAPAROSCOPY X2 CHRISTINE BTL 1982 TVH [address] SPENCER 2007 VAGINAL CUFF BX. IRMA CHANDLER NP 03/07 CHOLECYSTECTOMY 06/09 ACDF-C4-T1 10/06 R BREAST [id number] 09/2010 ABOVE L CTR-DR FISH 10/27/14 L4-L5 FUSION/LAMINECTOMY 09/2013 NORMAL EGD/COLON/SB CAPSULE-R 06/2016 FUSION C5 C6 1998 HYSTERECTOMY 1988 BENIGN MOLE REMOVAL 2017 FAMILY HISTORY FATHER: , DM, LUNG CANCER, CAD, DX ALZHEIMER, DIAGNOSED WITH CANCER MOTHER: , COPD SIBLINGS: BROTHER HTN,1/2 BROTHER DM SON(S): HTN PATERNAL GRAND FATHER: , CANCER, COLON PATERNAL GRAND MOTHER: COLON CANCER LATER YEARS MATERNAL UNCLE: PROSTATE CANCER 70'S ,LEUKEMIA IN HIS 50'S MATERNAL AUNT: ALIVE, HYPERLIPIDEMIA, COLON CANCER IN HER 60'S 2 BROTHER(S) , 1 SISTER(S) - HEALTHY. 1 SON(S) , 1 DAUGHTER(S) . PGM, MGF C COLON CANCER\\\\NMOM-GRAVES DISEASE\\\\NSON-SEIZURES, BRADYCARDIA-PACEMAKER, AFIB. SOCIAL HISTORY GENERAL: TOBACCO USE ARE YOU A:CURRENT SMOKER ARE YOU INTERESTED IN QUITTING?THINKING ABOUT QUITTING COUNSELED THE PATIENT ON SMOKING CESSATION, EDUCATION [id number]/15/2019 HOW MANY CIGARETTES A DAY DO YOU SMOKE?5 OR LESS HOW SOON AFTER YOU WAKE UP DO YOU SMOKE YOUR FIRST CIGARETTE?AFTER 60 MIN HOW OFTEN DO YOU SMOKE CIGARETTES?EVERY DAY PATIENT COUNSELED ON THE DANGERS OF TOBACCO USE AND URGED TO QUIT:12/12/2018 HIV / HEP-C SCREENING HIV TEST OFFERED TO PATIENT:YES DATE OFFERED:06/28/2017 TEST ACCEPTED:NO HEP-C TEST OFFERED TO PATIENT:YES DATE OFFERED:06/28/2017 REASON:PATIENT DECLINED TEST ACCEPTED:NO REASON:PATIENT DECLINED OTHERS AT HOME: DAUGHTER, SON-IN LAW. EDUCATION LEVEL OF EDUCATION:HIGH SCHOOL GED DIET: AVOIDS GREASY, FRIED FOODS, DAIRY.TRIES TO EAT SMALLER PORTIONS. LANGUAGE LANGUAGES SPOKEN:MACEDONIAN DOMESTIC VIOLENCE DO YOU FEEL SAFE IN YOUR ENVIRONMENT?YES RECREATIONAL DRUG USE DRUG USE?NO EXERCISE: LOWER BACK EXERCISES, WALKS TOLERATED. LEARNING BARRIERS / SPECIAL NEEDS CHANGE FROM LAST VISIT?NO BARRIERS TO LEARNING?NO HEARING IMPAIRED?NO TNITUS VISION IMPAIRED?YES COGNITIVELY IMPAIRED?NO :CORRECTIVE LENSES READINESS TO LEARN?YES LEARNING PREFERENCES?NO LEARNING CAPABILITIES PRESENT?YES EMOTIONAL BARRIERS?NO SPECIAL DEVICES?NO SEED ANALYST NEEDED?NO PAIN CLINIC PFS, CLERGY, PUBLIC HEALTH REFERRALS PFS REFERRAL NEEDED?NO CLERGY REFERRAL NEEDED?NO PUBLIC HEALTH REFERRAL NEEDED?NO WAS THE PROVIDER NOTIFIED OF ANY PERTINENT INFO? N/A HAS THE PATIENT BEEN EDUCATED REGARDING HIS/HER PLAN OF CARE?YES HAS THE PATIENT BEEN EDUCATED REGARDING PAIN, THE RISK FOR PAIN, THE IMPORTANCE OF EFFECTIVE PAIN MANAGEMENT, AND THE PAIN ASSESSMENT PROCESS?YES LATEX QUESTIONNAIRE LATEX ALLERGY : HAVE YOU EVER DEVELOPED ANY TYPE OF REACTION AFTER HANDLING LATEX PRODUCTS SUCH RUBBER GLOVES, CONDOMS, DIAPHRAGMS, BALLOONS, SOCKS, OR UNDERWEAR?NO LATEX ALLERGY : HAVE YOU EVER DEVELOPED ANY TYPE OF REACTION DURING OR AFTER DENTAL APPOINTMENT, VAGINAL/RECTAL EXAMINATION, SURGICAL PROCEDURE, OR ANY OTHER EXPOSURE?NO DATE ASKED : 10/02/2018 LATEX RISK : HAVE YOU EVER HAD ANY DIFFICULTY BREATHING OR HIVES AFTER EATING OR HANDLING ANY FRUITS, OR VEGETABLES; SUCH KIWI, BANANAS, STONE FRUITS, OR CHESTNUTSNO LATEX RISK : DO YOU HAVE A PREVIOUS PERSONAL HISTORY OF MORE THAN NINE SURGERIES, SPINA BIFIDA, OR REPEATED CATHERIZATIONS? NO LATEX RISK : ARE YOU FREQUENTLY EXPOSED TO LATEX PRODUCTS IN YOUR OCCUPATION?NO CAFFEINE CAFFEINE USE?YES 3 CUPS COFFEE DAILY ADVANCE DIRECTIVE ADVANCE DIRECTIVE DISCUSSED WITH PATIENT:YES HEALTH CARE PROXY RAH ROSARIO [phone] JAIN [id number] NONE NO AMISH BELIEFS THAT WOULD IMPACT HEALTH CARE. MARITAL STATUS: .. ALCOHOL SCREENING DID YOU HAVE A DRINK CONTAINING ALCOHOL IN THE PAST YEAR?YES HOW OFTEN DID YOU HAVE A DRINK CONTAINING ALCOHOL IN THE PAST YEAR?MONTHLY OR LESS (1 POINT) POINTS1 INTERPRETATIONNEGATIVE OCCUPATION: DISABLED. SEXUAL HX HAD SEX IN THE LAST 12 MONTHS (VAGINAL, ORAL, OR ANAL)?NO HAVE YOU EVER HAD AN STD?NO REVIEWED WITH PT 12/07/17 1150 LASREVIEWED WITH PT 01/10/18 1030 LAS02/20/18 REVIEWED WITH PT. AD REVIEWED WITH PT 03/12/18 1159 BVREVIEWED WITH PT 05/10/18 1056 LAS REVIEWED WITH PATIENT 12/12/18 1129 NLJ. HOSPITALIZATION/MAJOR DIAGNOSTIC PROCEDURE SURGICAL RELATED REVIEW OF SYSTEMS REVIEWED BY: PROVIDER: ELVIRA VELAZQUEZ . CONSTITUTIONAL: ANY CHANGE IN YOUR MEDICAL CONDITION? NO . CHILLS NO . FEVER NO . INFECTION: DO YOU HAVE NEW INFECTIONS? NO . DO YOU HAVE HISTORY OF MRSA? NO . MUSCULOSKELETAL: ANY NEW PATTERNS OF PAIN OR NUMBNESS? YES- PAIN IS INCREASING IN LOWER BACK AND DOWN THE BACK OF BOTH LEGS AND FRONT THIGH AREA TO KNEE IN RIGHT LEG . GASTROENTEROLOGY: ANY NEW CHANGE IN BOWEL CONTROL? NO . GENITOURINARY: ANY NEW CHANGE IN BLADDER CONTROL? NO . IS THERE A CHANCE YOU COULD BE ? NO . HEMATOLOGY/LYMPH: DO YOU TAKE ANY BLOOD THINNERS? (FOR EXAMPLE- COUMADIN, PLAVIX, AGGRENOX, PLATEL, PRADAXA, OR XARELTO) NO . WHEN WAS YOUR LAST DOSE? DATE: TIME: . NEUROLOGY: HAVE YOU FALLEN IN THE PAST 12 MONTHS? NO . ANY NEW EXTREMITY NUMBNESS OR WEAKNESS? NO . CARDIOLOGY: DO YOU HAVE A PACEMAKER OR DEFIBRILLATOR? NO . RESPIRATORY: HAVE YOU BEEN SICK IN THE PAST WEEK? NO . FEVER NO . FLU LIKE SYMPTOMS? NO . COUGH NO . INTEGUMENTARY: DO YOU HAVE ANY RASHES OR OPEN SORES? NO . ALLERGIC/IMMUNO: ARE YOU ALLERGIC TO IV DYE? NO . ANY NEW ALLERGIES? NO . PSYCHIATRIC: DO YOU HAVE THOUGHTS OF HURTING YOURSELF OR SOMEONE ELSE? NO . ARE YOU ABUSED, NEGLECTED, OR IN AN UNSAFE ENVIRONMENT? NO . ENDOCRINOLOGY: ARE YOU DIABETIC? NO . OTHER: DO YOU NEED ANY PRESCRIPTIONS? NO . IF YES, PLEASE LIST: ____ . ANY NEW PROBLEMS WITH YOUR MEDICATIONS? NO . WHEN DID YOU LAST EAT? ____ . WHEN DID YOU LAST DRINK? ____ . WHAT DID YOU LAST DRINK? ____ . NAME OF PERSON DRIVING YOU HOME? ____ . DO YOU HAVE ANY OTHER QUESTIONS OR CONCERNS YES- PAIN HAS INCREASED SINCE , BUT PATIENT WOULD LIKE TO WAIT UNTIL FOR ANOTHER INJECTION, STATES THE LESI DID WORK JUST NOT LONG . VITAL SIGNS WT 135.6 LBS, HT 64 IN, BMI 23.27 INDEX, BP 115/55 MM HG, HR 88 /MIN, RR 16 /MIN, TEMP 97.6 F, OXYGEN SAT % 96%, SAFE IN ENV? (Y/N) YES, NA INITIALS SC 11:13, REVIEWED BY: SANYA. EXAMINATION GENERAL EXAMINATION: GENERALNO ACUTE DISTRESS, WELL NOURISHED AND HYDRATED. PSYCHAPPROPRIATE MOOD AND AFFECT . LUNGS:CLEAR TO AUSCULTATION BILATERALLY, NO WHEEZES, RHONCHI, RALES. HEART:NO MURMURS, REGULAR RATE AND RHYTHM. BACK:+ SLR ON LEFT SIDE, POINT TENDER OVER LUMBAR AND SACRAL SPINE, SURROUNDING SKIN SHOWS NO ERYTHEMA, ECCHYMOSIS, INCREASED WARMTH, AND/OR SKIN ERUPTIONS.. MUSCULOSKELETAL:EQUAL STRENGTH OF THE LOWER EXTREMITIES BILATERALLY. ASSESSMENTS INTERVERTEBRAL DISC DISORDER WITH RADICULOPATHY OF LUMBOSACRAL REGION - M51.17 (PRIMARY) TREATMENT INTERVERTEBRAL DISC DISORDER WITH RADICULOPATHY OF LUMBOSACRAL REGION NOTES: LESI L5-S1 NEEDS ROOM 2 . CLINICAL NOTES: 58 YEAR OLD FEMALE IN FOR POST LESI FOLLOW UP. GIVEN PRESENTING SYMPTOMS AND RESULTS OF PHYSICAL EXAMINATION RECOMMENDED REPEAT LESI WITH FOLLOW UP. PATIENT HAS EXPRESSED UNDERSTANDING OF AND WAS IN AGREEMENT WITH TREATMENT PLAN. GIVEN TIME TO ASK QUESTIONS AND EXPRESS CONCERNS. , ISTOP REGISTRY REVIEWED AND DEMONSTRATES COMPLLIANCE. (REF # [id number] ) BRINGS IN MEDICATIONS WHICH IS APPROPRIATE FOR WHAT WAS DISPENSED. RECENT URINE TOXICOLOGY REVIEWED. NO UNAUTHORIZED MEDICATIONS. NO ILLICIT SUBSTANCES AND PRESCRIBED MEDICATIONS WERE PRESENT. PREVENTIVE MEDICINE PAIN CLINIC TEACHING: PROCEDURE TEACHING PT GIVEN WRITTEN AND VERBAL PRE PROCEDURE INSTRUCTIONS. PT INSTRUCTED TO HOLD RA MEDICATIONS 2 WEEKS PRE AND POST PROCEDURE. PT VERBALIZES UNDERSTANDING OF ALL INSTRUCTIONS. GLORIA GRANT 12/12/2018 12:15:54 PM > . PROCEDURE CODES FA211 ESTABILISHED PATIENT [facility] CHARGE DISPOSITION & COMMUNICATION FOLLOW UP POST PROCEDURE (REASON: LESI L5-S1 NEEDS ROOM 2) ELECTRONICALLY SIGNED BY CARIDAD CROOK ON 12/16/2018 AT 08:54 AM EDT DISCLAIMER : THIS IS A VISIT SUMMARY EXTRACTED FROM THE [employer] CHART. IT IS NOT A COPY OF THE [employer] PROGRESS NOTE. ZINA
== END ==
LOC: M PAIN 11:30
PROVIDERS: ATTEND Family Medicine
DX: M51.17 Intervertebral disc disorders with radiculopathy, lumbosacral region (principal); Z79.891 Long term (current) use of opiate analgesic; Z79.899 Other long term (current) drug therapy; F17.210 Nicotine dependence, cigarettes, uncomplicated; Z88.2 Allergy status to sulfonamides; Z88.8 Allergy status to other drugs, medicaments and biological substances

== ENCOUNTER → 2019-03-21 | Outpatient (CLI) | payer MEDICARE ==
[2019-03-21 09:40] LABS: APPEARANCE, URINE CLEAR (CLEAR); BACTERIA, URINE AUTO NEGATIVE (NEGATIVE); BILIRUBIN, URINE AUTO NEGATIVE (NEGATIVE); BLOOD, URINE BLOOD NEGATIVE (NEGATIVE); COLOR, URINE YELLOW (YELLOW); GLUCOSE, URINE (UA) AUTO NEGATIVE (NEGATIVE); KETONE, URINE AUTO NEGATIVE (NEGATIVE); LEUKOCYTE ESTERASE, URINE AUTO NEGATIVE (NEGATIVE); MUCUS, URINE SMALL (NEGATIVE); NITRITE, URINE AUTO NEGATIVE (NEGATIVE); PROTEIN, URINE AUTO NEGATIVE (NEGATIVE); RBC, URINE AUTO 1 /HPF (0-3); SPECIFIC GRAVITY URINE AUTO 1.014 (1.002-1.035); SQUAMOUS EPITHELIAL CELL UR AU 2 /HPF (0-6); UROBILINOGEN, URINE AUTO 0.2 mg/dL (0.0-2.0); WBC, URINE AUTO 0 /HPF (0-3)
[2019-03-21 09:42] LABS: BASO % 1.6 % (0.0-1.0); EOS % 1.2 % (0.0-3.0); HEMATOCRIT 39.4 % (36.0-47.0); HEMOGLOBIN 12.9 g/dl (12.0-15.5); LYMPH # 0.9 10^3/uL (1.5-5.0); LYMPH % 37.6 % (24.0-44.0); MEAN CORPUSCULAR HEMOGLOBIN 31.8 pg (27.0-33.0); MEAN CORPUSCULAR HGB CONC 32.7 g/dl (32.0-36.5); MONO # 0.4 10^3/uL (0.0-0.8); MONO % 15.1 % (0.0-5.0); NEUTROPHILS # 1.1 10^3/uL (1.5-8.5); NEUTROPHILS % 44.5 % (36.0-66.0); PLATELET COUNT, AUTOMATED 182 10^3/uL (150-450); RED BLOOD COUNT 4.06 10^6/uL (4.00-5.40); WHITE BLOOD COUNT 2.5 10^3/uL (4.0-10.0)
[2019-03-21 10:07] LABS: HEMOGLOBIN A1c 5.1 %
[2019-03-21 10:23] LABS: ALBUMIN 4.1 GM/DL (3.2-5.2); ALT/SGPT 27 U/L (12-78); BILIRUBIN,TOTAL 0.4 MG/DL (0.2-1.0); BLOOD UREA NITROGEN 10 MG/DL (7-18); C REACTIVE PROTEIN QUANTITATIV < 0.30 MG/DL (0.00-0.30); CALCIUM LEVEL 9.7 MG/DL (8.5-10.1); CARBON DIOXIDE LEVEL 32 MEQ/L (21-32); CHLORIDE LEVEL 108 MEQ/L (98-107); CHOLESTEROL LEVEL 182 MG/DL (<200); CHOLESTEROL RISK RATIO 3.033 (<5); CREATININE FOR GFR 0.91 MG/DL (0.55-1.30); FREE T4 0.76 NG/DL (0.76-1.46); GLOMERULAR FILTRATION RATE > 60.0 (>51); GLUCOSE, FASTING 92 MG/DL (70-100); HDL CHOLESTEROL 60 MG/DL (>40); LDL CHOLESTEROL 89 MG/DL (<100); NON-HDL-C 122 MG/DL; POTASSIUM SERUM 4.5 MEQ/L (3.5-5.1); SODIUM LEVEL 142 MEQ/L (136-145); TOTAL PROTEIN 6.9 GM/DL (6.4-8.2); TRIGLYCERIDES LEVEL 163 MG/DL (<150)
[2019-03-21 10:28] LABS: MALB URINE SIEMENS < 5.0 MG/L
== END ==
LOC: M WUC 08:15
PROVIDERS: ATTEND Family Medicine
DX: D72.819 Decreased white blood cell count, unspecified (principal); E78.2 Mixed hyperlipidemia; R73.01 Impaired fasting glucose

== ENCOUNTER → 2019-03-26 | Outpatient (REF) | payer MEDICARE | LOC: M SFHCPLAZ 12:04 | PROVIDERS: ATTEND Family Medicine | DX: Z28.21 Immunization not carried out because of patient refusal (principal) ==

== ENCOUNTER → 2019-05-08 | Outpatient (CLI) | payer MEDICARE ==
--- NOTE | 2019-05-21 02:12 | ECWPNPC ---
PATIENT NAME: LOGAN CRAVEN : 1960 GENDER: FEMALE VISIT DATE: 05/08/2019 DISCHARGE DATE: 05/08/19 1457 VISIT LOCKED DATE TIME: PHYSICIAN: ANDREA ELIAS PHYSICIAN PAGER NO: [phone] RESOURCE: ANDREA ELIAS REASON FOR APPOINTMENT 1. REEVAL. FOR INJECTION HISTORY OF PRESENT ILLNESS HISTORY OF PRESENT ILLNESS: HERE FOR FOLLOW-UP OF CHRONIC LOW BACK PAIN AND RIGHT LEG RADICULAR SYMPTOMS.. HAD TO CANCEL LUMBAR EPIDURAL STEROID INJECTION PLANNED DUE TO FAMILY EMERGENCY. REPORTING PROGRESSION OF HER LOW BACK PAIN AND RIGHT ANTERIOR THIGH PAIN OVER THE PAST MONTH. RATING PAIN LEVEL 5-8/10 VAS. REVIEWED MRI AND DISCUSSED TREATMENT OPTIONS. PAIN THE PATIENT DESCRIBES THE PAIN... FALL RISK SCREENING: SCREENING :NO FALLS REPORTED IN THE LAST YEAR CURRENT MEDICATIONS TAKING VITAMIN D 2000 UNIT CAPSULE 1 TABLET ORALLY ONCE A DAY TAKING CANE . MISCELLANEOUS QUAD CANE _ QD R27 TAKING CALCIUM 600 + D 600-400 MG-UNIT TABLET 1 TABLET ORALLY ONCE A DAY TAKING ESOMEPRAZOLE MAGNESIUM 40 MG CAPSULE DELAYED RELEASE 1 CAPSULE ORALLY AC BID TAKING CARISOPRODOL 350 MG TABLET 1 TABLET NEEDED ORALLY TID PRN, MDD 3 TAKING ATORVASTATIN CALCIUM 20 MG TABLET 1 TABLET ORALLY ONCE A DAY TAKING DERMOTIC 0.01 % OIL 5 DROPS INTO AFFECTED EAR OTIC TWICE A DAY X 5D C FLARES TAKING CYANOCOBALAMIN 500 MCG TABLET 1 TABLET ORALLY EVERY 5 DAYS TAKING HYDROXYCHLOROQUINE SULFATE 200 MG TABLET 1 M,W,F AND 2 T,TH,SA,MORSE ORALLY ONCE A DAY TAKING ARAVA 20 MG TABLET 1 TABLET ORALLY ONCE A DAY TAKING PREMARIN 0.625 MG/GM CREAM 1 GRAM VAGINAL WEEKLY TAKING KEVZARA 150 MG/1.14ML SOLUTION PREFILLED SYRINGE 1.14 ML SUBCUTANEOUS EVERY 2 WEEKS TAKING ESOMEPRAZOLE MAGNESIUM 40 MG CAPSULE DELAYED RELEASE 1 CAPSULE ORALLY TWICE DAILY TAKING CARAFATE 1 GM TABLET 1 TABLET ON AN EMPTY STOMACH ORALLY AC TID TAKING HYDROCODONE-ACETAMINOPHEN 5-325 MG TABLET 1 TABLET NEEDED ORALLY TID PRN MDD = 3 TAKING COLESTIPOL HCL 1 GM TABLET 1 TAB ORALLY ONCE A DAY TAKING ELMIRON 100 MG CAPSULE 1 CAPSULE ON AN EMPTY STOMACH 1 TABLET THREE A DAY NOT-TAKING ORPHENADRINE CITRATE ER 100 MG TABLET EXTENDED RELEASE 12 HOUR 1 TABLET ORALLY TWICE A DAY NOT-TAKING ARAVA 20 MG TABLET 1 TABLET ORALLY ONCE A DAY, NOTES: DUPLICATE NOT-TAKING ATORVASTATIN CALCIUM 20 MG TABLET 1 TABLET ORALLY ONCE A DAY, NOTES: DUPLICATE NOT-TAKING CYANOCOBALAMIN 100 MCG TABLET 1 TABLET ORALLY ONCE A DAY, NOTES: DUPLICATE NOT-TAKING SARILUMAB 200 MG/1.14ML SOLUTION PREFILLED SYRINGE 1.14 ML SUBCUTANEOUS NOT-TAKING SOMA 350 MG TABLET 3 TABS ORALLY DAILY MEDICATION LIST REVIEWED AND RECONCILED WITH THE PATIENT PAST MEDICAL HISTORY RA/OSTEOARTHRITIS/FIBROMYALGIA NICOTINE ADDICTION-08/2011 FEV1 2.5L (101%)/RATIO 97%-1 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 GERD/DYSPEPSIA-06/2016 NORMAL EGD/COLON/SB CAPSULE-R HYPERLIPIDEMIA 2B ENDOMETRIOSIS 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 SPENCER 2008 FOLLOWS WITH WOMAN TO WOMAN HISTORY OF TUBULAR ADENOMA-NORMAL COLONOSCOPY APRIL 2009 NORMAL COLONOSCOPY C - RANDOM BIOPSIES-[place] COLONOSCOPY 07/18/16 REINDL CERVICAL DJD STATUS POST MULTILEVEL FUSION-01/2010 MRI STABLE ACDF C BASELINE DJD ATROPHIC VAGINITIS OSTEOPENIA VITAMIN D DEFICIENCY CHRONIC SINUSITIS / NONE LATELY RECURRENT UTI / YEARS AGO CHRONIC DIARRHEA STATUS POST LAPAROSCOPIC CHOLECYSTECTOMY JULY 2009//[id number] CHRONIC DRY EYES MEMORY LOSS 2 INSOMNIA, WORK STRESS-12/2011 NORMAL MRI BRAIN S AND NORMAL WORKUP LUMBAR DJD-L2/3 BULGE C L IF HNP C L L2 COMPRESSION, L3/4 SEVERE CCS C B L3 COMPRESSION BY 03/2017 MRI LONG-TERM DISABILITY-TAKEN OOW 08/05/13 [address] BARAJAS, 01/2014 FILLED OUT LTD PAPERWORK FOR GUARDIAN-PATIENT DEFERRED WCE INSOMNIA ALLERGIES METHOTREXATE (ANTI-RHEUMATIC): MIGRANES - SIDE EFFECTS CYMBALTA: RACING PLUSE, SHAKES - ALLERGY WELLBUTRIN: PALPITATIONS, SEVERE - ALLERGY SULFA (FOR ALLERGY USE ONLY): NAUSEA/VOMITING - ALLERGY LYRICA: PALPITATIONS - ALLERGY CELEXA: PALPITATIONS - SIDE EFFECTS ORENCIA: ANAPHYLAXIS - ALLERGY TOPICAL ALOE VERA: SEVERE ITCHING CANNOT TOLERATE ASA BASED PRODUCTS/ NSAIDS: HX STOMACH BLEED - CONTRAINDICATION SURGICAL HISTORY LAPAROSCOPY X2 CHRISTINE BTL 1981 TVH [address] SPENCER 2007 VAGINAL CUFF BX. IRMA CHANDLER NP 03/07 CHOLECYSTECTOMY 06/09 ACDF-C4-T1 10/06 R BREAST JOMIHB-MBQECXTI-WNIBMG 09/2010 ABOVE L CTR-DR EAST 10/27/14 L4-L5 FUSION/LAMINECTOMY 09/2013 NORMAL EGD/COLON/SB CAPSULE-R 06/2016 FUSION C5 C6 1998 HYSTERECTOMY 1988 BENIGN MOLE REMOVAL 2017 FAMILY HISTORY FATHER: , DM, LUNG CANCER, CAD, DX ALZHEIMER, DIAGNOSED WITH OTHER MALIGNANT NEOPLASM OF UNSPECIFIED SITE MOTHER: , COPD SIBLINGS: BROTHER HTN,1/2 BROTHER DM SON(S): HTN PATERNAL GRAND FATHER: , CANCER, COLON PATERNAL GRAND MOTHER: COLON CANCER LATER YEARS MATERNAL UNCLE: PROSTATE CANCER 70'S ,LEUKEMIA IN HIS 50'S MATERNAL AUNT: ALIVE, HYPERLIPIDEMIA, COLON CANCER IN HER 60'S 2 BROTHER(S) , 1 SISTER(S) - HEALTHY. 1 SON(S) , 1 DAUGHTER(S) . PGM, MGF C COLON CANCER\\\\NMOM-GRAVES DISEASE\\\\NSON-SEIZURES, BRADYCARDIA-PACEMAKER, AFIB. SOCIAL HISTORY GENERAL: TOBACCO USE ARE YOU A:CURRENT SMOKER ARE YOU INTERESTED IN QUITTING?THINKING ABOUT QUITTING COUNSELED THE PATIENT ON SMOKING CESSATION, EDUCATION PLMKTIOT90/09/2020 HOW MANY CIGARETTES A DAY DO YOU SMOKE?5 OR LESS HOW SOON AFTER YOU WAKE UP DO YOU SMOKE YOUR FIRST CIGARETTE?AFTER 60 MIN HOW OFTEN DO YOU SMOKE CIGARETTES?EVERY DAY PATIENT COUNSELED ON THE DANGERS OF TOBACCO USE AND URGED TO QUIT:05/08/2019 SMOKING CESSATION INFORMATION GIVEN03/25/2019 HIV / HEP-C SCREENING HIV TEST OFFERED TO PATIENT:YES DATE OFFERED:06/28/2017 TEST ACCEPTED:NO HEP-C TEST OFFERED TO PATIENT:YES DATE OFFERED:06/28/2017 REASON:PATIENT DECLINED TEST ACCEPTED:NO REASON:PATIENT DECLINED OTHERS AT HOME: DAUGHTER, SON-IN LAW. EDUCATION LEVEL OF EDUCATION:HIGH SCHOOL GED DIET: AVOIDS GREASY, FRIED FOODS, DAIRY.TRIES TO EAT SMALLER PORTIONS. LANGUAGE LANGUAGES SPOKEN:YAKUT DOMESTIC VIOLENCE DO YOU FEEL SAFE IN YOUR ENVIRONMENT?YES RECREATIONAL DRUG USE DRUG USE?NO EXERCISE: LOWER BACK EXERCISES, WALKS TOLERATED. LEARNING BARRIERS / SPECIAL NEEDS CHANGE FROM LAST VISIT?NO BARRIERS TO LEARNING?NO HEARING IMPAIRED?NO TNITUS VISION IMPAIRED?YES COGNITIVELY IMPAIRED?NO :CORRECTIVE LENSES READINESS TO LEARN?YES LEARNING PREFERENCES?NO LEARNING CAPABILITIES PRESENT?YES EMOTIONAL BARRIERS?NO SPECIAL DEVICES?NO SCHOOL COMMISSIONER NEEDED?NO PAIN CLINIC PFS, CLERGY, PUBLIC HEALTH REFERRALS PFS REFERRAL NEEDED?NO CLERGY REFERRAL NEEDED?NO PUBLIC HEALTH REFERRAL NEEDED?NO WAS THE PROVIDER NOTIFIED OF ANY PERTINENT INFO? N/A HAS THE PATIENT BEEN EDUCATED REGARDING HIS/HER PLAN OF CARE?YES HAS THE PATIENT BEEN EDUCATED REGARDING PAIN, THE RISK FOR PAIN, THE IMPORTANCE OF EFFECTIVE PAIN MANAGEMENT, AND THE PAIN ASSESSMENT PROCESS?YES LATEX QUESTIONNAIRE LATEX ALLERGY : HAVE YOU EVER DEVELOPED ANY TYPE OF REACTION AFTER HANDLING LATEX PRODUCTS SUCH RUBBER GLOVES, CONDOMS, DIAPHRAGMS, BALLOONS, SOCKS, OR UNDERWEAR?NO LATEX ALLERGY : HAVE YOU EVER DEVELOPED ANY TYPE OF REACTION DURING OR AFTER DENTAL APPOINTMENT, VAGINAL/RECTAL EXAMINATION, SURGICAL PROCEDURE, OR ANY OTHER EXPOSURE?NO LATEX RISK : HAVE YOU EVER HAD ANY DIFFICULTY BREATHING OR HIVES AFTER EATING OR HANDLING ANY FRUITS, OR VEGETABLES; SUCH KIWI, BANANAS, STONE FRUITS, OR CHESTNUTSNO LATEX RISK : DO YOU HAVE A PREVIOUS PERSONAL HISTORY OF MORE THAN NINE SURGERIES, SPINA BIFIDA, OR REPEATED CATHERIZATIONS? NO LATEX RISK : ARE YOU FREQUENTLY EXPOSED TO LATEX PRODUCTS IN YOUR OCCUPATION?NO DATE ASKED : 10/02/2018 CAFFEINE CAFFEINE USE?YES 3 CUPS COFFEE DAILY ADVANCE DIRECTIVE ADVANCE DIRECTIVE DISCUSSED WITH PATIENT:YES HEALTH CARE PROXY RAH ROSARIO [phone] ORTHODOXY [id number] NONE NO NONDENOMINATIONAL BELIEFS THAT WOULD IMPACT HEALTH CARE. MARITAL STATUS: .. ALCOHOL SCREENING DID YOU HAVE A DRINK CONTAINING ALCOHOL IN THE PAST YEAR?YES HOW OFTEN DID YOU HAVE A DRINK CONTAINING ALCOHOL IN THE PAST YEAR?MONTHLY OR LESS (1 POINT) POINTS1 INTERPRETATIONNEGATIVE OCCUPATION: DISABLED. SEXUAL HX HAD SEX IN THE LAST 12 MONTHS (VAGINAL, ORAL, OR ANAL)?NO HAVE YOU EVER HAD AN STD?NO REVIEWED WITH PT 12/07/17 1150 LASREVIEWED WITH PT 01/10/18 1030 LAS02/20/18 REVIEWED WITH PT. AD REVIEWED WITH PT 03/12/18 1159 BVREVIEWED WITH PT 05/10/18 1056 LAS REVIEWED WITH PATIENT 12/12/18 1129 NLJREVIEWED WITH PATIENT 05/08/2019 1411 JS. HOSPITALIZATION/MAJOR DIAGNOSTIC PROCEDURE SURGICAL RELATED REVIEW OF SYSTEMS REVIEWED BY: PROVIDER: ANDREA MCLEAN . CONSTITUTIONAL: ANY CHANGE IN YOUR MEDICAL CONDITION? NO . CHILLS NO . FEVER NO . INFECTION: DO YOU HAVE NEW INFECTIONS? NO . DO YOU HAVE HISTORY OF MRSA? NO . MUSCULOSKELETAL: ANY NEW PATTERNS OF PAIN OR NUMBNESS? YES, STATES INCREASE IN PAIN RECENTLY - CONSTANT WITH LITTLE TO NO RELIEF . GASTROENTEROLOGY: ANY NEW CHANGE IN BOWEL CONTROL? NO . GENITOURINARY: ANY NEW CHANGE IN BLADDER CONTROL? NO . IS THERE A CHANCE YOU COULD BE ? NO . HEMATOLOGY/LYMPH: DO YOU TAKE ANY BLOOD THINNERS? (FOR EXAMPLE- COUMADIN, PLAVIX, AGGRENOX, PLATEL, PRADAXA, OR XARELTO) NO . WHEN WAS YOUR LAST DOSE? DATE: TIME: . NEUROLOGY: HAVE YOU FALLEN IN THE PAST 12 MONTHS? NO . ANY NEW EXTREMITY NUMBNESS OR WEAKNESS? YES, STATES WEAKNESS IN HER RIGHT LEG . CARDIOLOGY: DO YOU HAVE A PACEMAKER OR DEFIBRILLATOR? NO . RESPIRATORY: HAVE YOU BEEN SICK IN THE PAST WEEK? NO . FEVER NO . FLU LIKE SYMPTOMS? NO . COUGH NO . INTEGUMENTARY: DO YOU HAVE ANY RASHES OR OPEN SORES? NO . ALLERGIC/IMMUNO: ARE YOU ALLERGIC TO IV DYE? NO . ANY NEW ALLERGIES? NO . PSYCHIATRIC: DO YOU HAVE THOUGHTS OF HURTING YOURSELF OR SOMEONE ELSE? NO . ARE YOU ABUSED, NEGLECTED, OR IN AN UNSAFE ENVIRONMENT? NO . ENDOCRINOLOGY: ARE YOU DIABETIC? NO . OTHER: DO YOU NEED ANY PRESCRIPTIONS? NO . IF YES, PLEASE LIST: ____ . ANY NEW PROBLEMS WITH YOUR MEDICATIONS? NO . WHEN DID YOU LAST EAT? ____ . WHEN DID YOU LAST DRINK? ____ . WHAT DID YOU LAST DRINK? ____ . NAME OF PERSON DRIVING YOU HOME? ____ . DO YOU HAVE ANY OTHER QUESTIONS OR CONCERNS NO . VITAL SIGNS WT 132.2 LBS, HT 64 IN, BMI 22.69 INDEX, BP 137/65 MM HG, HR 89 /MIN, RR 16 /MIN, TEMP 95.5 F, OXYGEN SAT % 99%, SAFE IN ENV? (Y/N) YES, NA INITIALS AW 1358, REVIEWED BY: JHONNY. EXAMINATION GENERAL EXAMINATION: GENERALAPPEARS UNCOMFORTABLE . PSYCHAFFECT NORMAL . NECK:TRACHEA MIDLINE. NO CERVICAL OR SUPRACLAVICULAR LYMPHADENOPATHY NOTED . LUNGS:LUNG LINDSEY ARE CLEAR TO AUSCULTATION BILATERALLY. GOOD MOVEMENT OF AIR . HEART:S1, S2 IN A REGULAR RATE AND RHYTHM. NO SIGNIFICANT MURMURS, RUBS OR GALLOPS NOTED . MUSCULOSKELETAL:MUSCLE STRENGTH TESTING 5/5 BILATERAL LOWER EXTREMITIES . DIAGNOSTIC TESTS REVIEWEDMRI L/S BESSX-[id number]. ASSESSMENTS LUMBOSACRAL SPINAL STENOSIS - M48.07 (PRIMARY) TREATMENT LUMBOSACRAL SPINAL STENOSIS NOTES: L4-5 LESI. CONSIDER INCREASE IN BY MOUTH PRE-SEDATE. PREVENTIVE MEDICINE PAIN CLINIC TEACHING: PROCEDURE TEACHING REVIEWED INFORMATION ON LUMBAR EPIDURAL STEROID INJECTION PROCEDURE WITH PATIENT. ALSO REVIEWED PRE-PROCEDURE INSTRUCTIONS. PATIENT VERBALIZED AN UNDERSTANDING. LUIS VALDES 05/08/2019 3:11:18 PM > . PROCEDURE CODES FA211 ESTABILISHED PATIENT [facility] FACILITY CHARGE DISPOSITION & COMMUNICATION FOLLOW UP POST (REASON: L4-5 LESI. CONSIDER INCREASE IN BY MOUTH PRE-SEDATE) ELECTRONICALLY SIGNED BY CARIDAD HENLEY ON 05/20/2019 AT 03:19 PM EST DISCLAIMER : THIS IS A VISIT SUMMARY EXTRACTED FROM THE [employer] CHART. IT IS NOT A COPY OF THE [employer] PROGRESS NOTE. ZINA
== END ==
LOC: M PAIN 13:45
PROVIDERS: ATTEND Nurse Practitioner Family
DX: M48.07 Spinal stenosis, lumbosacral region (principal); G89.29 Other chronic pain; K21.9 Gastro-esophageal reflux disease without esophagitis; E78.5 Hyperlipidemia, unspecified; E55.9 Vitamin D deficiency, unspecified; G47.00 Insomnia, unspecified; F17.210 Nicotine dependence, cigarettes, uncomplicated; Z88.2 Allergy status to sulfonamides; Z88.6 Allergy status to analgesic agent; Z88.8 Allergy status to other drugs, medicaments and biological substances; Z79.899 Other long term (current) drug therapy

== ENCOUNTER → 2019-06-05 | Outpatient (CLI) | payer MEDICARE ==
[~2019-06-05] MED LIST changes: +ISOVUE-M 300 61% 15ML VIAL (Q9967) As Ordered ONE; +LIDOCAINE 1% SDV INJ 30 ML VIAL As Ordered ONE; +diazePAM 5 MG TAB As Ordered ONE; +methylPREDNISolone SUSP 40 MG/ML (DEPO-medrol) VIAL (J1030) As Ordered ONE; +oxyCODONE 5MG TAB As Ordered ONE
--- NOTE | 2019-06-05 13:56 | REP ---
Partial lumbar spine series: Two views . History: Injection procedure for pain. Eight seconds of fluoroscopy time is reported. Findings: A sequence of two fluoroscopically obtained last image hold procedural spot radiographs of the lumbar spine document needle position and contrast injection associated with injection procedure. Electronically Signed by Georgi Rudolph MD 06/05/2019 01:47 P
--- NOTE | 2019-06-13 04:12 | ECWPNPC ---
PATIENT NAME: LOGAN CRAVEN : 1960 GENDER: FEMALE VISIT DATE: 06/05/2019 DISCHARGE DATE: 06/05/19 1308 VISIT LOCKED DATE TIME: PHYSICIAN: KENDRA CRAFT MD PHYSICIAN PAGER NO: [phone] RESOURCE: KENDRA CRAFT MD REASON FOR APPOINTMENT 1. L5-S1 LESI- NEEDS PROC ROOM #2 HISTORY OF PRESENT ILLNESS HISTORY OF PRESENT ILLNESS: PAIN THE PATIENT DESCRIBES THE PAIN... FALL RISK SCREENING: SCREENING :NO FALLS REPORTED IN THE LAST YEAR CURRENT MEDICATIONS TAKING VITAMIN D 2000 UNIT CAPSULE 1 TABLET ORALLY ONCE A DAY, NOTES: 06/04/2019 1530 TAKING CANE . MISCELLANEOUS QUAD CANE _ QD R27 TAKING CALCIUM 600 + D 600-400 MG-UNIT TABLET 1 TABLET ORALLY ONCE A DAY, NOTES: 06/04/2019 1530 TAKING ATORVASTATIN CALCIUM 20 MG TABLET 1 TABLET ORALLY ONCE A DAY, NOTES: 06/04/2019 0900 TAKING CYANOCOBALAMIN 500 MCG TABLET 1 TABLET ORALLY EVERY 5 DAYS, NOTES: 06/02/2019 TAKING HYDROXYCHLOROQUINE SULFATE 200 MG TABLET 1 M,W,F AND 2 T,TH,SA,MORSE ORALLY ONCE A DAY TAKING PREMARIN 0.625 MG/GM CREAM 1 GRAM VAGINAL WEEKLY, NOTES: SUNDAY TAKING KEVZARA 150 MG/1.14ML SOLUTION PREFILLED SYRINGE 1.14 ML SUBCUTANEOUS EVERY 2 WEEKS, NOTES: 2 WEEKS AGO TAKING CARAFATE 1 GM TABLET 1 TABLET ON AN EMPTY STOMACH ORALLY AC TID, NOTES: 06/05/2019 0630 TAKING COLESTIPOL HCL 1 GM TABLET 1 TAB ORALLY ONCE A DAY, NOTES: 06/05/2019644 TAKING ELMIRON 100 MG CAPSULE 1 CAPSULE ON AN EMPTY STOMACH 1 TABLET THREE A DAY, NOTES: 06/05/2019599 TAKING HYDROCODONE-ACETAMINOPHEN 5-325 MG TABLET 1 TABLET NEEDED ORALLY TID PRN MDD = 3, NOTES: 06/05/2019644 TAKING CARISOPRODOL 350 MG TABLET 1 TABLET NEEDED ORALLY TID PRN, MDD 3, NOTES: 06/05/2019644 TAKING ESOMEPRAZOLE MAGNESIUM 40 MG CAPSULE DELAYED RELEASE 1 CAPSULE ORALLY AC BID, NOTES: 06/05/2019599 NOT-TAKING DERMOTIC 0.01 % OIL 5 DROPS INTO AFFECTED EAR OTIC TWICE A DAY X 5D C FLARES NOT-TAKING ARAVA 20 MG TABLET 1 TABLET ORALLY ONCE A DAY, NOTES: 2 WEEKS AGO NOT-TAKING ORPHENADRINE CITRATE ER 100 MG TABLET EXTENDED RELEASE 12 HOUR 1 TABLET ORALLY TWICE A DAY NOT-TAKING ARAVA 20 MG TABLET 1 TABLET ORALLY ONCE A DAY, NOTES: DUPLICATE NOT-TAKING ATORVASTATIN CALCIUM 20 MG TABLET 1 TABLET ORALLY ONCE A DAY, NOTES: DUPLICATE NOT-TAKING CYANOCOBALAMIN 100 MCG TABLET 1 TABLET ORALLY ONCE A DAY, NOTES: DUPLICATE NOT-TAKING SARILUMAB 200 MG/1.14ML SOLUTION PREFILLED SYRINGE 1.14 ML SUBCUTANEOUS NOT-TAKING SOMA 350 MG TABLET 3 TABS ORALLY DAILY MEDICATION LIST REVIEWED AND RECONCILED WITH THE PATIENT PAST MEDICAL HISTORY RA/OSTEOARTHRITIS/FIBROMYALGIA NICOTINE ADDICTION-08/2011 FEV1 2.5L (101%)/RATIO 97%-1 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 GERD/DYSPEPSIA-06/2016 NORMAL EGD/COLON/SB CAPSULE-R HYPERLIPIDEMIA 2B ENDOMETRIOSIS 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 SPENCER 2008 FOLLOWS WITH WOMAN TO WOMAN HISTORY OF TUBULAR ADENOMA-NORMAL COLONOSCOPY APRIL 2009 NORMAL COLONOSCOPY C - RANDOM BIOPSIES-[place] COLONOSCOPY 07/18/16 REINDL CERVICAL DJD STATUS POST MULTILEVEL FUSION-01/2010 MRI STABLE ACDF C BASELINE DJD ATROPHIC VAGINITIS OSTEOPENIA VITAMIN D DEFICIENCY CHRONIC SINUSITIS / NONE LATELY RECURRENT UTI / YEARS AGO CHRONIC DIARRHEA STATUS POST LAPAROSCOPIC CHOLECYSTECTOMY JULY 2009//[id number] CHRONIC DRY EYES MEMORY LOSS 2 INSOMNIA, WORK STRESS-12/2011 NORMAL MRI BRAIN S AND NORMAL WORKUP LUMBAR DJD-L2/3 BULGE C L IF HNP C L L2 COMPRESSION, L3/4 SEVERE CCS C B L3 COMPRESSION BY 03/2017 MRI LONG-TERM DISABILITY-TAKEN OOW 08/05/13 [address] BARAJAS, 01/2014 FILLED OUT LTD PAPERWORK FOR GUARDIAN-PATIENT DEFERRED WCE INSOMNIA ALLERGIES METHOTREXATE (ANTI-RHEUMATIC): MIGRANES - SIDE EFFECTS CYMBALTA: RACING PLUSE, SHAKES - ALLERGY WELLBUTRIN: PALPITATIONS, SEVERE - ALLERGY SULFA (FOR ALLERGY USE ONLY): NAUSEA/VOMITING - ALLERGY LYRICA: PALPITATIONS - ALLERGY CELEXA: PALPITATIONS - SIDE EFFECTS ORENCIA: ANAPHYLAXIS - ALLERGY TOPICAL ALOE VERA: SEVERE ITCHING CANNOT TOLERATE ASA BASED PRODUCTS/ NSAIDS: HX STOMACH BLEED - CONTRAINDICATION SURGICAL HISTORY LAPAROSCOPY X2 CHRISTINE BTL 1981 TVH [address] SPENCER 2007 VAGINAL CUFF BX. IRMA CHANDLER,MARIO 03/07 CHOLECYSTECTOMY 06/09 ACDF-C4-T1 10/06 R BREAST [id number] 09/2010 ABOVE L CTR-DR EAST 10/27/14 L4-L5 FUSION/LAMINECTOMY 09/2013 NORMAL EGD/COLON/SB CAPSULE-R 06/2016 FUSION C5 C6 1998 HYSTERECTOMY 1988 BENIGN MOLE REMOVAL 2017 FAMILY HISTORY FATHER: , DM, LUNG CANCER, CAD, DX ALZHEIMER, DIAGNOSED WITH OTHER MALIGNANT NEOPLASM OF UNSPECIFIED SITE MOTHER: , COPD SIBLINGS: BROTHER HTN,1/2 BROTHER DM SON(S): HTN PATERNAL GRAND FATHER: , CANCER, COLON PATERNAL GRAND MOTHER: COLON CANCER LATER YEARS MATERNAL UNCLE: PROSTATE CANCER 70'S ,LEUKEMIA IN HIS 50'S MATERNAL AUNT: ALIVE, HYPERLIPIDEMIA, COLON CANCER IN HER 60'S 2 BROTHER(S) , 1 SISTER(S) - HEALTHY. 1 SON(S) , 1 DAUGHTER(S) . PGM, MGF C COLON CANCER\\\\NMOM-GRAVES DISEASE\\\\NSON-SEIZURES, BRADYCARDIA-PACEMAKER, AFIB. SOCIAL HISTORY GENERAL: TOBACCO USE ARE YOU A:CURRENT SMOKER ARE YOU INTERESTED IN QUITTING?THINKING ABOUT QUITTING COUNSELED THE PATIENT ON SMOKING CESSATION, EDUCATION [id number]/09/2020 HOW MANY CIGARETTES A DAY DO YOU SMOKE?5 OR LESS HOW SOON AFTER YOU WAKE UP DO YOU SMOKE YOUR FIRST CIGARETTE?AFTER 60 MIN HOW OFTEN DO YOU SMOKE CIGARETTES?EVERY DAY PATIENT COUNSELED ON THE DANGERS OF TOBACCO USE AND URGED TO QUIT:06/05/2019 SMOKING CESSATION INFORMATION GIVEN03/25/2019 HIV / HEP-C SCREENING HIV TEST OFFERED TO PATIENT:YES DATE OFFERED:06/28/2017 TEST ACCEPTED:NO HEP-C TEST OFFERED TO PATIENT:YES DATE OFFERED:06/28/2017 REASON:PATIENT DECLINED TEST ACCEPTED:NO REASON:PATIENT DECLINED OTHERS AT HOME: DAUGHTER, SON-IN LAW. EDUCATION LEVEL OF EDUCATION:HIGH SCHOOL GED DIET: AVOIDS GREASY, FRIED FOODS, DAIRY.TRIES TO EAT SMALLER PORTIONS. LANGUAGE LANGUAGES SPOKEN:BENGALI DOMESTIC VIOLENCE DO YOU FEEL SAFE IN YOUR ENVIRONMENT?YES RECREATIONAL DRUG USE DRUG USE?NO EXERCISE: LOWER BACK EXERCISES, WALKS TOLERATED. LEARNING BARRIERS / SPECIAL NEEDS CHANGE FROM LAST VISIT?NO BARRIERS TO LEARNING?NO HEARING IMPAIRED?NO TNITUS VISION IMPAIRED?YES COGNITIVELY IMPAIRED?NO :CORRECTIVE LENSES READINESS TO LEARN?YES LEARNING PREFERENCES?NO LEARNING CAPABILITIES PRESENT?YES EMOTIONAL BARRIERS?NO SPECIAL DEVICES?NO HEATING ENGINEER NEEDED?NO PAIN CLINIC PFS, CLERGY, PUBLIC HEALTH REFERRALS PFS REFERRAL NEEDED?NO CLERGY REFERRAL NEEDED?NO PUBLIC HEALTH REFERRAL NEEDED?NO WAS THE PROVIDER NOTIFIED OF ANY PERTINENT INFO? N/A HAS THE PATIENT BEEN EDUCATED REGARDING HIS/HER PLAN OF CARE?YES HAS THE PATIENT BEEN EDUCATED REGARDING PAIN, THE RISK FOR PAIN, THE IMPORTANCE OF EFFECTIVE PAIN MANAGEMENT, AND THE PAIN ASSESSMENT PROCESS?YES LATEX QUESTIONNAIRE LATEX ALLERGY : HAVE YOU EVER DEVELOPED ANY TYPE OF REACTION AFTER HANDLING LATEX PRODUCTS SUCH RUBBER GLOVES, CONDOMS, DIAPHRAGMS, BALLOONS, SOCKS, OR UNDERWEAR?NO LATEX ALLERGY : HAVE YOU EVER DEVELOPED ANY TYPE OF REACTION DURING OR AFTER DENTAL APPOINTMENT, VAGINAL/RECTAL EXAMINATION, SURGICAL PROCEDURE, OR ANY OTHER EXPOSURE?NO DATE ASKED : 10/02/2018 LATEX RISK : HAVE YOU EVER HAD ANY DIFFICULTY BREATHING OR HIVES AFTER EATING OR HANDLING ANY FRUITS, OR VEGETABLES; SUCH KIWI, BANANAS, STONE FRUITS, OR CHESTNUTSNO LATEX RISK : DO YOU HAVE A PREVIOUS PERSONAL HISTORY OF MORE THAN NINE SURGERIES, SPINA BIFIDA, OR REPEATED CATHERIZATIONS? NO LATEX RISK : ARE YOU FREQUENTLY EXPOSED TO LATEX PRODUCTS IN YOUR OCCUPATION?NO CAFFEINE CAFFEINE USE?YES 3 CUPS COFFEE DAILY ADVANCE DIRECTIVE ADVANCE DIRECTIVE DISCUSSED WITH PATIENT:YES HEALTH CARE PROXY RAH ROSARIO [phone] TAOIST [id number] NONE NO CONFUCIANIST BELIEFS THAT WOULD IMPACT HEALTH CARE. MARITAL STATUS: .. ALCOHOL SCREENING DID YOU HAVE A DRINK CONTAINING ALCOHOL IN THE PAST YEAR?YES HOW OFTEN DID YOU HAVE A DRINK CONTAINING ALCOHOL IN THE PAST YEAR?MONTHLY OR LESS (1 POINT) POINTS1 INTERPRETATIONNEGATIVE OCCUPATION: DISABLED. SEXUAL HX HAD SEX IN THE LAST 12 MONTHS (VAGINAL, ORAL, OR ANAL)?NO HAVE YOU EVER HAD AN STD?NO REVIEWED WITH PT 12/07/17 1150 LASREVIEWED WITH PT 01/10/18 1030 LAS02/20/18 REVIEWED WITH PT. AD REVIEWED WITH PT 03/12/18 1159 BVREVIEWED WITH PT 05/10/18 1056 LAS REVIEWED WITH PATIENT 12/12/18 1129 NLJREVIEWED WITH PATIENT 05/08/2019 1411 JSREVIEWED WITH PATIENT 06/05/2019 1054. HOSPITALIZATION/MAJOR DIAGNOSTIC PROCEDURE SURGICAL RELATED REVIEW OF SYSTEMS REVIEWED BY: PROVIDER: . CONSTITUTIONAL: ANY CHANGE IN YOUR MEDICAL CONDITION? NO . CHILLS NO . FEVER NO . INFECTION: DO YOU HAVE NEW INFECTIONS? NO . DO YOU HAVE HISTORY OF MRSA? NO . MUSCULOSKELETAL: ANY NEW PATTERNS OF PAIN OR NUMBNESS? YES-INCREASED PAIN . GASTROENTEROLOGY: ANY NEW CHANGE IN BOWEL CONTROL? NO . GENITOURINARY: ANY NEW CHANGE IN BLADDER CONTROL? NO . IS THERE A CHANCE YOU COULD BE ? NO . HEMATOLOGY/LYMPH: DO YOU TAKE ANY BLOOD THINNERS? (FOR EXAMPLE- COUMADIN, PLAVIX, AGGRENOX, PLATEL, PRADAXA, OR XARELTO) NO . WHEN WAS YOUR LAST DOSE? DATE: TIME: . NEUROLOGY: HAVE YOU FALLEN IN THE PAST 12 MONTHS? NO . ANY NEW EXTREMITY NUMBNESS OR WEAKNESS? YES- RIGHT LEG . CARDIOLOGY: DO YOU HAVE A PACEMAKER OR DEFIBRILLATOR? NO . RESPIRATORY: HAVE YOU BEEN SICK IN THE PAST WEEK? NO . FEVER NO . FLU LIKE SYMPTOMS? NO . COUGH NO . INTEGUMENTARY: DO YOU HAVE ANY RASHES OR OPEN SORES? NO . ALLERGIC/IMMUNO: ARE YOU ALLERGIC TO IV DYE? NO . ANY NEW ALLERGIES? NO . PSYCHIATRIC: DO YOU HAVE THOUGHTS OF HURTING YOURSELF OR SOMEONE ELSE? NO . ARE YOU ABUSED, NEGLECTED, OR IN AN UNSAFE ENVIRONMENT? NO . ENDOCRINOLOGY: ARE YOU DIABETIC? NO . OTHER: DO YOU NEED ANY PRESCRIPTIONS? NO . IF YES, PLEASE LIST: ____ . ANY NEW PROBLEMS WITH YOUR MEDICATIONS? NO . WHEN DID YOU LAST EAT? 06/04/2019 1800 . WHEN DID YOU LAST DRINK? 06/05/2019 0700 . WHAT DID YOU LAST DRINK? WATER . NAME OF PERSON DRIVING YOU HOME? KATIE CRAVEN . DO YOU HAVE ANY OTHER QUESTIONS OR CONCERNS NO . VITAL SIGNS WT 131 LBS, HT 64 IN, BMI 22.48 INDEX, BP 137/63 MM HG, HR 50 /MIN, RR 16 /MIN, TEMP 97.5 F, OXYGEN SAT % 98%, SAFE IN ENV? (Y/N) YES, NA INITIALS AW 1044, REVIEWED BY: SANYA. ASSESSMENTS INTERVERTEBRAL DISC DISORDERS WITH RADICULOPATHY, LUMBOSACRAL REGION - M51.17 (PRIMARY) PROCEDURES PRE PROCEDURE DIAGNOSIS LUMBAR POST LAMINECTOMY PAIN SYNDROME, LUMBOSACRAL DISC DISORDER WITH RADICULOPATHY POST PROCEDURE DIAGNOSIS LUMBAR POST LAMINECTOMY PAIN SYNDROME , LUMBOSACRAL DISC DISORDER WITH RADICULOPATHY PROCEDURE LUMBAR EPIDURAL STEROID INJECTION UNDER FLUOROSCOPIC GUIDANCE SURGEON DR. KENDRA CRAFT COORDINATOR VOLUNTEER SERVICES NONE ANESTHESIA LOCAL PRE PROCEDURE NOTE THE PATIENT HAS A HISTORY OF CHRONIC LOW BACK PAIN. I EVALUATED THE PATIENT AND REVIEWED THE CHART. I WENT OVER THE RISKS, ALTERNATIVES, AND BENEFITS ASSOCIATED WITH THIS PROCEDURE. THE PATIENT WOULD LIKE TO PROCEED AND GIVES CONSENT TO PERFORM THE PROCEDURE. THE PATIENT DENIES UNEXPLAINABLE WEIGHT LOSS, FEVER, CHILLS, OR NEW CHANGES IN URINARY OR BOWEL CONTROL. DESCRIPTION OF PROCEDURE THE PATIENT WAS BROUGHT TO THE PROCEDURE ROOM AND PLACED IN THE PRONE POSITION. THE LUMBOSACRAL AREA WAS CLEANED WITH BETADINE SOLUTION AND DRAPED ASEPTICALLY. THE PROCEDURE WAS DONE UNDER STERILE CONDITIONS. I CHECKED LATERALITY AND THE LEVEL WHERE THE PROCEDURE WAS GOING TO BE PERFORMED WITH THE PATIENT AND THE SUPPORTING STAFF AT THE MOMENT OF THE TIME OUT IN THE PROCEDURE ROOM. UNDER FLUOROSCOPIC GUIDANCE, THE TARGET POINT WAS SELECTED AT THE INTERLAMINAR LEVEL OF L5-S1. LIDOCAINE WAS USED TO NUMB THE SKIN AND THE SUBCUTANEOUS TISSUE BELOW IT. EPIDURAL TUOHY NEEDLE, 17-GAUGE, WAS ADVANCED UNDER FLUOROSCOPIC GUIDANCE AND FOLLOWING PATIENT FEEDBACK UNTIL THE EPIDURAL SPACE WAS REACHED, 7 CM DEEP INTO THE SKIN BY THE LOSS OF RESISTANCE TECHNIQUE. ISOVUE M DYE 30%, 0.25 ML, WAS INJECTED SHOWING ADEQUATE SPREAD OF THE DYE. THEN, A SOLUTION OF 3 ML OF NORMAL SALINE WITH DEPO-MEDROL 60 MG WAS INJECTED SLOWLY FOLLOWING PATIENT FEEDBACK. THERE WAS NO EVIDENCE OF BLOOD, PARESTHESIA OR CEREBROSPINAL FLUID DURING THE PROCEDURE. THE PATIENT WAS SENT TO THE RECOVERY ROOM. THE PATIENT WAS MOVING THE EXTREMITIES AND DOING WELL. THERE WAS NO COMPLICATION DURING THE PROCEDURE. FLUOROSCOPY TIME WAS 8 SECONDS. POST PROCEDURE NOTE THE PATIENT WILL BE SEEN IN A FOLLOW UP IN THE NEXT FEW WEEKS. I AM LOOKING FOR LONG LASTING PAIN RELIEF WITH THIS INJECTION. INSTRUCTIONS WERE GIVEN, QUESTIONS WERE ANSWERED, AND THE PATIENT EXPRESSED UNDERSTANDING AND AGREES WITH THE PLAN. I, MARY VILLA, DOCUMENTED THE ABOVE INFORMATION ACTING A SCRIBE FOR DR. CRAFT. I HAVE REVIEWED THE ABOVE DOCUMENT, WRITTEN BY MARY DON AND I VERIFY THAT IT IS ACCURATE. DIAGNOSTIC IM[facility] FLUORO GUIDE SPINE INJECTION (PAIN)[id number] PROCEDURE CODES 18611 LUMBAR/SACRAL W/ IMAGING 6045F RADXPS IN END [id number] PXD DISPOSITION & COMMUNICATION FOLLOW UP 2 WEEKS ELECTRONICALLY SIGNED BY KENDRA CRAFT MD, ON 06/12/2019 AT 01:51 PM EST DISCLAIMER : THIS IS A VISIT SUMMARY EXTRACTED FROM THE [facility] CHART. IT IS NOT A COPY OF THE [facility] PROGRESS NOTE. ZINA
== END ==
LOC: M PAIN 10:30
PROVIDERS: ATTEND Anesthesiology
DX: M51.17 Intervertebral disc disorders with radiculopathy, lumbosacral region (principal); M79.7 Fibromyalgia; K21.9 Gastro-esophageal reflux disease without esophagitis; E78.5 Hyperlipidemia, unspecified; E55.9 Vitamin D deficiency, unspecified; G47.00 Insomnia, unspecified; F17.210 Nicotine dependence, cigarettes, uncomplicated; Z88.2 Allergy status to sulfonamides; Z88.6 Allergy status to analgesic agent; Z88.8 Allergy status to other drugs, medicaments and biological substances; Z91.09 Other allergy status, other than to drugs and biological substances; Z79.899 Other long term (current) drug therapy
CPT/HCPCS: 62323; J1030; Q9967

== ENCOUNTER → 2019-06-19 | Outpatient (CLI) | payer MEDICARE ==
[~2019-06-19] MED LIST changes: -ISOVUE-M 300 61% 15ML VIAL (Q9967) As Ordered ONE; -LIDOCAINE 1% SDV INJ 30 ML VIAL As Ordered ONE; -diazePAM 5 MG TAB As Ordered ONE; -methylPREDNISolone SUSP 40 MG/ML (DEPO-medrol) VIAL (J1030) As Ordered ONE; -oxyCODONE 5MG TAB As Ordered ONE
--- NOTE | 2019-07-08 04:36 | ECWPNPC ---
PATIENT NAME: LOGAN CRAVEN : 1960 GENDER: FEMALE VISIT DATE: 06/19/2019 DISCHARGE DATE: 06/19/19 1147 VISIT LOCKED DATE TIME: PHYSICIAN: ANDREA ELIAS PHYSICIAN PAGER NO: [phone] RESOURCE: ANDREA ELIAS REASON FOR APPOINTMENT 1. POST LESI HISTORY OF PRESENT ILLNESS HISTORY OF PRESENT ILLNESS: HERE FOR POST PROCEDURE FOLLOW-UP. HAD L5-S1 LESI ON 06/05/2019. REPORTING RESOLUTION OF RIGHT ANTERIOR THIGH PAIN AND IMPROVEMENT IN LOW BACK PAIN POST PROCEDURE. SHE IS CONCERNED TODAY ABOUT PERSISTENT PAIN AND WEAKNESS IN BOTH OF HER LOWER EXTREMITIES FROM THE KNEE TO THE FOOT WHEN SHE WALKS GREATER THAN 500 FEET. PAIN IN THIS REGION IS RELIEVED AT REST. HISTORY OF LUMBAR SURGERY. MRI DONE IN 2017 IS SHOWING SEVERE SPINAL STENOSIS. BRIEFLY DISCUSSED MILD PROCEDURE. REPORTS EPISODES OF FLARE UP IN RHEUMATOID CONDITION AFTER STOPPING METHOTREXATE PRE-AND POSTPROCEDURE. RESTARTED METHOTREXATE AND IS BEGINNING TO FEEL BETTER. PAIN THE PATIENT DESCRIBES THE PAIN... FALL RISK SCREENING: SCREENING :NO FALLS REPORTED IN THE LAST YEAR CURRENT MEDICATIONS TAKING VITAMIN D 2000 UNIT CAPSULE 1 TABLET ORALLY ONCE A DAY TAKING CANE . MISCELLANEOUS QUAD CANE _ QD R27 TAKING CALCIUM 600 + D 600-400 MG-UNIT TABLET 1 TABLET ORALLY ONCE A DAY TAKING ATORVASTATIN CALCIUM 20 MG TABLET 1 TABLET ORALLY ONCE A DAY TAKING CYANOCOBALAMIN 500 MCG TABLET 1 TABLET ORALLY EVERY 5 DAYS TAKING PREMARIN 0.625 MG/GM CREAM 1 GRAM VAGINAL WEEKLY TAKING KEVZARA 150 MG/1.14ML SOLUTION PREFILLED SYRINGE 1.14 ML SUBCUTANEOUS EVERY 2 WEEKS TAKING CARAFATE 1 GM TABLET 1 TABLET ON AN EMPTY STOMACH ORALLY AC TID TAKING COLESTIPOL HCL 1 GM TABLET 1 TAB ORALLY ONCE A DAY TAKING ELMIRON 100 MG CAPSULE 1 CAPSULE ON AN EMPTY STOMACH 1 TABLET THREE A DAY TAKING ESOMEPRAZOLE MAGNESIUM 40 MG CAPSULE DELAYED RELEASE 1 CAPSULE ORALLY AC BID TAKING CARISOPRODOL 350 MG TABLET 1 TABLET ORALLY 3 TIMES A DAY TAKING HYDROCODONE-ACETAMINOPHEN 5-325 MG TABLET 1 TABLET NEEDED ORALLY TID PRN MDD = 3 TAKING LEFLUNOMIDE 20 MG TABLET 1 TABLET ORALLY ONCE A DAY NOT-TAKING HYDROXYCHLOROQUINE SULFATE 200 MG TABLET 1 M,W,F AND 2 T,TH,SA,MORSE ORALLY ONCE A DAY NOT-TAKING DERMOTIC 0.01 % OIL 5 DROPS INTO AFFECTED EAR OTIC TWICE A DAY X 5D C FLARES NOT-TAKING ARAVA 20 MG TABLET 1 TABLET ORALLY ONCE A DAY, NOTES: 2 WEEKS AGO NOT-TAKING ORPHENADRINE CITRATE ER 100 MG TABLET EXTENDED RELEASE 12 HOUR 1 TABLET ORALLY TWICE A DAY NOT-TAKING ARAVA 20 MG TABLET 1 TABLET ORALLY ONCE A DAY, NOTES: DUPLICATE NOT-TAKING ATORVASTATIN CALCIUM 20 MG TABLET 1 TABLET ORALLY ONCE A DAY, NOTES: DUPLICATE NOT-TAKING CYANOCOBALAMIN 100 MCG TABLET 1 TABLET ORALLY ONCE A DAY, NOTES: DUPLICATE NOT-TAKING SARILUMAB 200 MG/1.14ML SOLUTION PREFILLED SYRINGE 1.14 ML SUBCUTANEOUS NOT-TAKING SOMA 350 MG TABLET 3 TABS ORALLY DAILY MEDICATION LIST REVIEWED AND RECONCILED WITH THE PATIENT PAST MEDICAL HISTORY RA/OSTEOARTHRITIS/FIBROMYALGIA NICOTINE ADDICTION-08/2011 FEV1 2.5L (101%)/RATIO 97%-1 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 GERD/DYSPEPSIA-06/2016 NORMAL EGD/COLON/SB CAPSULE-R HYPERLIPIDEMIA 2B ENDOMETRIOSIS 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 SPENCER 2008 FOLLOWS WITH WOMAN TO WOMAN HISTORY OF TUBULAR ADENOMA-NORMAL COLONOSCOPY APRIL 2009 NORMAL COLONOSCOPY C - RANDOM BIOPSIES-[place] COLONOSCOPY 07/18/16 REINDL 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 BARAJAS, 01/2014 FILLED OUT LTD PAPERWORK FOR GUARDIAN-PATIENT DEFERRED WCE INSOMNIA ALLERGIES METHOTREXATE (ANTI-RHEUMATIC): MIGRANES - SIDE EFFECTS CYMBALTA: RACING PLUSE, SHAKES - ALLERGY WELLBUTRIN: PALPITATIONS, SEVERE - ALLERGY SULFA (FOR ALLERGY USE ONLY): NAUSEA/VOMITING - ALLERGY LYRICA: PALPITATIONS - ALLERGY CELEXA: PALPITATIONS - SIDE EFFECTS ORENCIA: ANAPHYLAXIS - ALLERGY TOPICAL ALOE VERA: SEVERE ITCHING CANNOT TOLERATE ASA BASED PRODUCTS/ NSAIDS: HX STOMACH BLEED - CONTRAINDICATION SURGICAL HISTORY LAPAROSCOPY X2 CHRISTINE BTL 1981 TVH [address] SPENCER 2007 VAGINAL CUFF BX. IRMA CHANDLER,MARIO 03/07 CHOLECYSTECTOMY 06/09 ACDF-C4-T1 10/06 R BREAST [id number] 09/2010 ABOVE L CTR-DR EAST 10/27/14 L4-L5 FUSION/LAMINECTOMY 09/2013 NORMAL EGD/COLON/SB CAPSULE-R 06/2016 FUSION C5 C6 1998 HYSTERECTOMY 1988 BENIGN MOLE REMOVAL 2017 FAMILY HISTORY FATHER: , DM, LUNG CANCER, CAD, DX ALZHEIMER, DIAGNOSED WITH OTHER MALIGNANT NEOPLASM OF UNSPECIFIED SITE MOTHER: , COPD SIBLINGS: BROTHER HTN,1/2 BROTHER DM SON(S): HTN PATERNAL GRAND FATHER: , CANCER, COLON PATERNAL GRAND MOTHER: COLON CANCER LATER YEARS MATERNAL UNCLE: PROSTATE CANCER 70'S ,LEUKEMIA IN HIS 50'S MATERNAL AUNT: ALIVE, HYPERLIPIDEMIA, COLON CANCER IN HER 60'S 2 BROTHER(S) , 1 SISTER(S) - HEALTHY. 1 SON(S) , 1 DAUGHTER(S) . PGM, MGF C COLON CANCER\\\\NMOM-GRAVES DISEASE\\\\NSON-SEIZURES, BRADYCARDIA-PACEMAKER, AFIB. SOCIAL HISTORY GENERAL: TOBACCO USE ARE YOU A:CURRENT SMOKER HOW OFTEN DO YOU SMOKE CIGARETTES?EVERY DAY HOW SOON AFTER YOU WAKE UP DO YOU SMOKE YOUR FIRST CIGARETTE?AFTER 60 MIN HOW MANY CIGARETTES A DAY DO YOU SMOKE?5 OR LESS ARE YOU INTERESTED IN QUITTING?THINKING ABOUT QUITTING PATIENT COUNSELED ON THE DANGERS OF TOBACCO USE AND URGED TO QUIT:06/05/2019 COUNSELED THE PATIENT ON SMOKING CESSATION, EDUCATION [id number]/09/2020 SMOKING CESSATION INFORMATION GIVEN03/25/2019 HIV / HEP-C SCREENING HIV TEST OFFERED TO PATIENT:YES DATE OFFERED:06/28/2017 TEST ACCEPTED:NO HEP-C TEST OFFERED TO PATIENT:YES DATE OFFERED:06/28/2017 REASON:PATIENT DECLINED TEST ACCEPTED:NO REASON:PATIENT DECLINED OTHERS AT HOME: DAUGHTER, SON-IN LAW. EDUCATION LEVEL OF EDUCATION:HIGH SCHOOL GED DIET: AVOIDS GREASY, FRIED FOODS, DAIRY.TRIES TO EAT SMALLER PORTIONS. LANGUAGE LANGUAGES SPOKEN:ARABIC DOMESTIC VIOLENCE DO YOU FEEL SAFE IN YOUR ENVIRONMENT?YES RECREATIONAL DRUG USE DRUG USE?NO EXERCISE: LOWER BACK EXERCISES, WALKS TOLERATED. LEARNING BARRIERS / SPECIAL NEEDS CHANGE FROM LAST VISIT?NO BARRIERS TO LEARNING?NO HEARING IMPAIRED?NO TNITUS VISION IMPAIRED?YES COGNITIVELY IMPAIRED?NO :CORRECTIVE LENSES READINESS TO LEARN?YES LEARNING PREFERENCES?NO LEARNING CAPABILITIES PRESENT?YES EMOTIONAL BARRIERS?NO SPECIAL DEVICES?NO MEMBERSHIP SECRETARY NEEDED?NO PAIN CLINIC PFS, CLERGY, PUBLIC HEALTH REFERRALS PFS REFERRAL NEEDED?NO CLERGY REFERRAL NEEDED?NO PUBLIC HEALTH REFERRAL NEEDED?NO WAS THE PROVIDER NOTIFIED OF ANY PERTINENT INFO? N/A HAS THE PATIENT BEEN EDUCATED REGARDING HIS/HER PLAN OF CARE?YES HAS THE PATIENT BEEN EDUCATED REGARDING PAIN, THE RISK FOR PAIN, THE IMPORTANCE OF EFFECTIVE PAIN MANAGEMENT, AND THE PAIN ASSESSMENT PROCESS?YES LATEX QUESTIONNAIRE LATEX ALLERGY : HAVE YOU EVER DEVELOPED ANY TYPE OF REACTION AFTER HANDLING LATEX PRODUCTS SUCH RUBBER GLOVES, CONDOMS, DIAPHRAGMS, BALLOONS, SOCKS, OR UNDERWEAR?NO LATEX ALLERGY : HAVE YOU EVER DEVELOPED ANY TYPE OF REACTION DURING OR AFTER DENTAL APPOINTMENT, VAGINAL/RECTAL EXAMINATION, SURGICAL PROCEDURE, OR ANY OTHER EXPOSURE?NO DATE ASKED : 10/02/2018 LATEX RISK : HAVE YOU EVER HAD ANY DIFFICULTY BREATHING OR HIVES AFTER EATING OR HANDLING ANY FRUITS, OR VEGETABLES; SUCH KIWI, BANANAS, STONE FRUITS, OR CHESTNUTSNO LATEX RISK : DO YOU HAVE A PREVIOUS PERSONAL HISTORY OF MORE THAN NINE SURGERIES, SPINA BIFIDA, OR REPEATED CATHERIZATIONS? NO LATEX RISK : ARE YOU FREQUENTLY EXPOSED TO LATEX PRODUCTS IN YOUR OCCUPATION?NO CAFFEINE CAFFEINE USE?YES 3 CUPS COFFEE DAILY ADVANCE DIRECTIVE ADVANCE DIRECTIVE DISCUSSED WITH PATIENT:YES HEALTH CARE PROXY RAH ROSARIO [phone] CHEONDOISM [id number] NONE NO SYNAGOGUE BELIEFS THAT WOULD IMPACT HEALTH CARE. MARITAL STATUS: .. ALCOHOL SCREENING DID YOU HAVE A DRINK CONTAINING ALCOHOL IN THE PAST YEAR?YES HOW OFTEN DID YOU HAVE A DRINK CONTAINING ALCOHOL IN THE PAST YEAR?MONTHLY OR LESS (1 POINT) POINTS1 INTERPRETATIONNEGATIVE OCCUPATION: DISABLED. SEXUAL HX HAD SEX IN THE LAST 12 MONTHS (VAGINAL, ORAL, OR ANAL)?NO HAVE YOU EVER HAD AN STD?NO REVIEWED WITH PT 12/07/17 1150 LASREVIEWED WITH PT 01/10/18 1030 LAS02/20/18 REVIEWED WITH PT. AD REVIEWED WITH PT 03/12/18 1159 BVREVIEWED WITH PT 05/10/18 1056 LAS REVIEWED WITH PATIENT 12/12/18 1129 NLJREVIEWED WITH PATIENT 05/08/2019 1411 JSREVIEWED WITH PATIENT 06/05/2019 1054. HOSPITALIZATION/MAJOR DIAGNOSTIC PROCEDURE SURGICAL RELATED REVIEW OF SYSTEMS REVIEWED BY: PROVIDER: ANDREA MCLEAN . CONSTITUTIONAL: ANY CHANGE IN YOUR MEDICAL CONDITION? NO . CHILLS NO . FEVER NO . INFECTION: DO YOU HAVE NEW INFECTIONS? NO . DO YOU HAVE HISTORY OF MRSA? NO . MUSCULOSKELETAL: ANY NEW PATTERNS OF PAIN OR NUMBNESS? YES - BETTER . GASTROENTEROLOGY: ANY NEW CHANGE IN BOWEL CONTROL? NO . GENITOURINARY: ANY NEW CHANGE IN BLADDER CONTROL? NO . IS THERE A CHANCE YOU COULD BE ? NO . HEMATOLOGY/LYMPH: DO YOU TAKE ANY BLOOD THINNERS? (FOR EXAMPLE- COUMADIN, PLAVIX, AGGRENOX, PLATEL, PRADAXA, OR XARELTO) NO . WHEN WAS YOUR LAST DOSE? DATE: TIME: . NEUROLOGY: HAVE YOU FALLEN IN THE PAST 12 MONTHS? NO . ANY NEW EXTREMITY NUMBNESS OR WEAKNESS? NO . CARDIOLOGY: DO YOU HAVE A PACEMAKER OR DEFIBRILLATOR? NO . RESPIRATORY: HAVE YOU BEEN SICK IN THE PAST WEEK? NO . FEVER NO . FLU LIKE SYMPTOMS? NO . COUGH NO . INTEGUMENTARY: DO YOU HAVE ANY RASHES OR OPEN SORES? NO . ALLERGIC/IMMUNO: ARE YOU ALLERGIC TO IV DYE? NO . ANY NEW ALLERGIES? NO . PSYCHIATRIC: DO YOU HAVE THOUGHTS OF HURTING YOURSELF OR SOMEONE ELSE? NO . ARE YOU ABUSED, NEGLECTED, OR IN AN UNSAFE ENVIRONMENT? NO . ENDOCRINOLOGY: ARE YOU DIABETIC? NO . OTHER: DO YOU NEED ANY PRESCRIPTIONS? NO . IF YES, PLEASE LIST: ____ . ANY NEW PROBLEMS WITH YOUR MEDICATIONS? NO . WHEN DID YOU LAST EAT? ____ . WHEN DID YOU LAST DRINK? ____ . WHAT DID YOU LAST DRINK? ____ . NAME OF PERSON DRIVING YOU HOME? ____ . DO YOU HAVE ANY OTHER QUESTIONS OR CONCERNS NO . VITAL SIGNS WT 131.8 LBS, HT 64 IN, BMI 22.62 INDEX, BP 115/56 MM HG, HR 92 /MIN, RR 16 /MIN, TEMP 97.1 F, OXYGEN SAT % 97%, NA INITIALS AW 1049, REVIEWED BY: RAFA. EXAMINATION GENERAL EXAMINATION: GENERALAWAKE,ALERT ,PLEASANT . PSYCHAFFECT NORMAL . LUNGS:LUNG LINDSEY ARE CLEAR TO AUSCULTATION BILATERALLY. GOOD MOVEMENT OF AIR . HEART:S1, S2 IN A REGULAR RATE AND RHYTHM. NO SIGNIFICANT MURMURS, RUBS OR GALLOPS NOTED . ASSESSMENTS SPINAL STENOSIS, LUMBAR REGION WITH NEUROGENIC CLAUDICATION - M48.062 (PRIMARY) LUMBAR POST-LAMINECTOMY SYNDROME - M96.1 TREATMENT SPINAL STENOSIS, LUMBAR REGION WITH NEUROGENIC CLAUDICATION [facility] MRI SPINE, L.S. WITH [id number] NOTES: TODAY, I WILL ORDER MRI OF THE LS-SPINE. AFTER SHE HAS THIS DONE SHE WILL CONTACT CLINIC TO SET UP A FOLLOW-UP APPOINTMENT WITH DR. CRAFT TO DISCUSS MILD PROCEDURE. PROCEDURE CODES [id number] ESTABILISHED PATIENT [facility] CHARGE DISPOSITION & COMMUNICATION FOLLOW UP DR CRAFT (REASON: DISCUSS MILD PROCEDURE/REIEW MRI L/S SPINE) ELECTRONICALLY SIGNED BY CARIDAD HENLEY ON 07/07/2019 AT 03:09 PM EDT DISCLAIMER : THIS IS A VISIT SUMMARY EXTRACTED FROM THE [employer] CHART. IT IS NOT A COPY OF THE [employer] PROGRESS NOTE. ZINA
== END ==
LOC: M PAIN 10:30
PROVIDERS: ATTEND Nurse Practitioner Family
DX: M48.062 Spinal stenosis, lumbar region with neurogenic claudication (principal); M96.1 Postlaminectomy syndrome, not elsewhere classified; M79.7 Fibromyalgia; K21.9 Gastro-esophageal reflux disease without esophagitis; E78.5 Hyperlipidemia, unspecified; E55.9 Vitamin D deficiency, unspecified; G47.00 Insomnia, unspecified; F17.210 Nicotine dependence, cigarettes, uncomplicated; Z88.2 Allergy status to sulfonamides; Z88.6 Allergy status to analgesic agent; Z88.8 Allergy status to other drugs, medicaments and biological substances; Z79.899 Other long term (current) drug therapy

== ENCOUNTER → 2019-07-02 | Outpatient (CLI) | payer MEDICARE ==
[~2019-07-02] MED LIST changes: +PROHANCE 279.3MG/ML 15ML VIAL (A9576) As Ordered ONE
--- NOTE | 2019-07-02 12:49 | REPVR ---
PROCEDURE INFORMATION: Exam: MR Lumbar Spine Without and With Contrast. Exam date and time: 07/02/2019 11:19 AM Age: 58 years old Clinical indication: Other: Post laminectomy syndrome; Prior surgery; Surgery date: 6+ months; Additional info: Lbp spinal stenosis lumbar region TECHNIQUE: Imaging protocol: Multiplanar magnetic resonance images of the lumbar spine without and with intravenous contrast. Contrast material: PROHANCE; Contrast volume: 12 ml; Contrast route: IV; COMPARISON: MRI-Spine, L.S. without con 04/02/2017 4:28 PM FINDINGS: Vertebrae: Vertical rods and pedicle screws are noted at L4 and L5. There is 2 mm of grade 1 retrolisthesis of L3 with respect to L4. Normal vertebral body alignment is otherwise preserved. Spinal cord: The conus medullaris terminates at T12/L1. L1-L2: There is shallow disc bulging. There is mild facet hypertrophy. The spinal canal and neural foramina are patent. L2-L3: There is diffuse disc bulging asymmetric to left. There is mild facet and ligamentous hypertrophy. There is mild right and moderate left lateral recess stenosis. There is mild right and moderate left neural foraminal narrowing. L3-L4: Assessment is limited by metallic artifact. There is diffuse disc bulging. There is moderate facet hypertrophy. There is severe canal stenosis. There is moderate right and mild to moderate left neural foraminal narrowing. L4-L5: Assessment is limited by metallic artifact. There is shallow disc bulging. There is moderate facet hypertrophy. There is mild right neural foraminal narrowing. L5-S1: Assessment is limited by metallic artifact. There is shallow disc bulging. There is facet hypertrophy. The spinal canal and neural foramina are patent. Soft tissues: Unremarkable. IMPRESSION: 1. L4/5 fusion. 2. Degenerative disc disease and spondylosis. At L3/4, changes contribute to severe canal stenosis and moderate right and mild to moderate left neural foraminal narrowing. Electronically signed by: Carmencita Byrnes On 07/02/2019 12:49:10 PM
== END ==
LOC: M RAD 09:43
PROVIDERS: ATTEND Nurse Practitioner Family
DX: M47.816 Spondylosis without myelopathy or radiculopathy, lumbar region (principal); M96.1 Postlaminectomy syndrome, not elsewhere classified
CPT/HCPCS: 72158; A9576

== ENCOUNTER → 2019-07-21 | Outpatient (CLI) | payer MEDICARE ==
[~2019-07-21] MED LIST changes: -PROHANCE 279.3MG/ML 15ML VIAL (A9576) As Ordered ONE
--- NOTE | 2019-07-26 03:30 | ECWPNPC ---
PATIENT NAME: LOGAN CRAVEN : 1960 GENDER: FEMALE VISIT DATE: 07/21/2019 DISCHARGE DATE: 07/21/19 1449 VISIT LOCKED DATE TIME: PHYSICIAN: KENDRA CRAFT MD PHYSICIAN PAGER NO: [phone] RESOURCE: KENDRA CRAFT MD REASON FOR APPOINTMENT 1. REVIEW MRI/MILD HISTORY OF PRESENT ILLNESS HISTORY OF PRESENT ILLNESS: PAIN THE PATIENT DESCRIBES THE PAIN... 58 YEAR OLD FEMALE PATIENT WITH A HISTORY OF CHRONIC LOW BACK AND BILATERAL LEG PAIN. THE PATIENT DESCRIBES THE PAIN ACHING, SORE, TENDER, AND DAILY WITH A PAIN SCORE OF 6-9/10 DEPENDING ON PHYSICAL ACTIVITY. THE PATIENT STATES HER PAIN BEGINS IN HER LOW BACK AND RADIATES DOWN MAINLY HER LEFT LEG. THE PATIENT SAYS SHE HAS A HISTORY OF BACK SURGERY, BUT HER PAIN PERSISTS. THE PATIENT HAS RECEIVED A LUMBAR EPIDURAL IN THE PAST, WHICH SHE SAYS HAS PROVIDED HER WITH ADEQUATE PAIN RELIEF, HOWEVER HER LAST EPIDURAL DID NOT PROVIDE MUCH PAIN RELIEF FOR HER SINCE HER ACTIVITY LEVEL INCREASED DUE TO MOVING TO ANOTHER HOUSE. PATIENT DENIES UNEXPLAINABLE WEIGHT LOSS, FEVER, CHILLS, NEW CHANGES ON HER URINARY OR BOWEL CONTROL. FALL RISK SCREENING: SCREENING :NO FALLS REPORTED IN THE LAST YEAR CURRENT MEDICATIONS TAKING VITAMIN D 2000 UNIT CAPSULE 1 TABLET ORALLY ONCE A DAY TAKING CANE . MISCELLANEOUS QUAD CANE _ QD R27 TAKING CALCIUM 600 + D 600-400 MG-UNIT TABLET 1 TABLET ORALLY ONCE A DAY TAKING ATORVASTATIN CALCIUM 20 MG TABLET 1 TABLET ORALLY ONCE A DAY TAKING CYANOCOBALAMIN 500 MCG TABLET 1 TABLET ORALLY EVERY 5 DAYS TAKING PREMARIN 0.625 MG/GM CREAM 1 GRAM VAGINAL WEEKLY TAKING KEVZARA 150 MG/1.14ML SOLUTION PREFILLED SYRINGE 1.14 ML SUBCUTANEOUS EVERY 2 WEEKS TAKING CARAFATE 1 GM TABLET 1 TABLET ON AN EMPTY STOMACH ORALLY AC TID TAKING COLESTIPOL HCL 1 GM TABLET 1 TAB ORALLY ONCE A DAY TAKING ESOMEPRAZOLE MAGNESIUM 40 MG CAPSULE DELAYED RELEASE 1 CAPSULE ORALLY AC BID TAKING LEFLUNOMIDE 20 MG TABLET 1 TABLET ORALLY ONCE A DAY TAKING ELMIRON 100 MG CAPSULE TAKE ONE CAPSULE BY MOUTH THREE TIMES A DAY ON AN EMPTY STOMACH TAKING CARISOPRODOL 350 MG TABLET 1 TABLET ORALLY 3 TIMES A DAY TAKING HYDROCODONE-ACETAMINOPHEN 5-325 MG TABLET 1 TABLET NEEDED ORALLY TID PRN MDD = 3 NOT-TAKING HYDROXYCHLOROQUINE SULFATE 200 MG TABLET 1 M,W,F AND 2 T,TH,SA,MORSE ORALLY ONCE A DAY NOT-TAKING DERMOTIC 0.01 % OIL 5 DROPS INTO AFFECTED EAR OTIC TWICE A DAY X 5D C FLARES NOT-TAKING ARAVA 20 MG TABLET 1 TABLET ORALLY ONCE A DAY, NOTES: 2 WEEKS AGO NOT-TAKING ORPHENADRINE CITRATE ER 100 MG TABLET EXTENDED RELEASE 12 HOUR 1 TABLET ORALLY TWICE A DAY NOT-TAKING ARAVA 20 MG TABLET 1 TABLET ORALLY ONCE A DAY, NOTES: DUPLICATE NOT-TAKING ATORVASTATIN CALCIUM 20 MG TABLET 1 TABLET ORALLY ONCE A DAY, NOTES: DUPLICATE NOT-TAKING CYANOCOBALAMIN 100 MCG TABLET 1 TABLET ORALLY ONCE A DAY, NOTES: DUPLICATE NOT-TAKING SARILUMAB 200 MG/1.14ML SOLUTION PREFILLED SYRINGE 1.14 ML SUBCUTANEOUS NOT-TAKING SOMA 350 MG TABLET 3 TABS ORALLY DAILY MEDICATION LIST REVIEWED AND RECONCILED WITH THE PATIENT PAST MEDICAL HISTORY RA/OSTEOARTHRITIS/FIBROMYALGIA NICOTINE ADDICTION-08/2011 FEV1 2.5L (101%)/RATIO 97%-1 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 GERD/DYSPEPSIA-06/2016 NORMAL EGD/COLON/SB CAPSULE-R HYPERLIPIDEMIA 2B ENDOMETRIOSIS 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 SPENCER 2008 FOLLOWS WITH WOMAN TO WOMAN HISTORY OF TUBULAR ADENOMA-NORMAL COLONOSCOPY APRIL 2009 NORMAL COLONOSCOPY C - RANDOM BIOPSIES-[facility] COLONOSCOPY 07/18/16 REINDL CERVICAL DJD STATUS POST MULTILEVEL FUSION-01/2010 MRI STABLE ACDF C BASELINE DJD ATROPHIC VAGINITIS OSTEOPENIA VITAMIN D DEFICIENCY CHRONIC SINUSITIS / NONE LATELY RECURRENT UTI / YEARS AGO CHRONIC DIARRHEA STATUS POST LAPAROSCOPIC CHOLECYSTECTOMY JULY 2009//[id number] CHRONIC DRY EYES MEMORY LOSS 2 INSOMNIA, WORK STRESS-12/2011 NORMAL MRI BRAIN S AND NORMAL WORKUP LUMBAR DJD-L2/3 BULGE C L IF HNP C L L2 COMPRESSION, L3/4 SEVERE CCS C B L3 COMPRESSION BY 03/2017 MRI LONG-TERM DISABILITY-TAKEN OOW 08/05/13 [address] BARAJAS, 01/2014 FILLED OUT LTD PAPERWORK FOR GUARDIAN-PATIENT DEFERRED WCE INSOMNIA ALLERGIES METHOTREXATE (ANTI-RHEUMATIC): MIGRANES - SIDE EFFECTS CYMBALTA: RACING PLUSE, SHAKES - ALLERGY WELLBUTRIN: PALPITATIONS, SEVERE - ALLERGY SULFA (FOR ALLERGY USE ONLY): NAUSEA/VOMITING - ALLERGY LYRICA: PALPITATIONS - ALLERGY CELEXA: PALPITATIONS - SIDE EFFECTS ORENCIA: ANAPHYLAXIS - ALLERGY TOPICAL ALOE VERA: SEVERE ITCHING CANNOT TOLERATE ASA BASED PRODUCTS/ NSAIDS: HX STOMACH BLEED - CONTRAINDICATION SURGICAL HISTORY LAPAROSCOPY X2 CHRISTINE BTL 1982 TVH [address] SPENCER 2007 VAGINAL CUFF BX. IRMA CHANDLER,MARIO 03/07 CHOLECYSTECTOMY 06/09 ACDF-C4-T1 10/06 R BREAST [id number] 09/2010 ABOVE L CTR- FISH 10/27/14 L4-L5 FUSION/LAMINECTOMY 09/2013 NORMAL EGD/COLON/SB CAPSULE-R 06/2016 FUSION C5 C6 1998 HYSTERECTOMY 1988 BENIGN MOLE REMOVAL 2017 FAMILY HISTORY FATHER: , DM, LUNG CANCER, CAD, DX ALZHEIMER, DIAGNOSED WITH OTHER MALIGNANT NEOPLASM OF UNSPECIFIED SITE MOTHER: , COPD SIBLINGS: BROTHER HTN,1/2 BROTHER DM SON(S): HTN PATERNAL GRAND FATHER: , CANCER, COLON PATERNAL GRAND MOTHER: COLON CANCER LATER YEARS MATERNAL UNCLE: PROSTATE CANCER 70'S ,LEUKEMIA IN HIS 50'S MATERNAL AUNT: ALIVE, HYPERLIPIDEMIA, COLON CANCER IN HER 60'S 2 BROTHER(S) , 1 SISTER(S) - HEALTHY. 1 SON(S) , 1 DAUGHTER(S) . PGM, MGF C COLON CANCER\\\\NMOM-GRAVES DISEASE\\\\NSON-SEIZURES, BRADYCARDIA-PACEMAKER, AFIB. SOCIAL HISTORY GENERAL: TOBACCO USE ARE YOU A:CURRENT SMOKER ARE YOU INTERESTED IN QUITTING?THINKING ABOUT QUITTING COUNSELED THE PATIENT ON SMOKING CESSATION, EDUCATION [id number]/23/2020 HOW MANY CIGARETTES A DAY DO YOU SMOKE?5 OR LESS HOW SOON AFTER YOU WAKE UP DO YOU SMOKE YOUR FIRST CIGARETTE?AFTER 60 MIN HOW OFTEN DO YOU SMOKE CIGARETTES?EVERY DAY PATIENT COUNSELED ON THE DANGERS OF TOBACCO USE AND URGED TO QUIT:06/05/2019 SMOKING CESSATION INFORMATION GIVEN03/25/2019 HIV / HEP-C SCREENING HIV TEST OFFERED TO PATIENT:YES DATE OFFERED:06/28/2017 TEST ACCEPTED:NO HEP-C TEST OFFERED TO PATIENT:YES DATE OFFERED:06/28/2017 REASON:PATIENT DECLINED TEST ACCEPTED:NO REASON:PATIENT DECLINED OTHERS AT HOME: DAUGHTER, SON-IN LAW. EDUCATION LEVEL OF EDUCATION:HIGH SCHOOL GED DIET: AVOIDS GREASY, FRIED FOODS, DAIRY.TRIES TO EAT SMALLER PORTIONS. LANGUAGE LANGUAGES SPOKEN:PANAMANIAN DOMESTIC VIOLENCE DO YOU FEEL SAFE IN YOUR ENVIRONMENT?YES RECREATIONAL DRUG USE DRUG USE?NO EXERCISE: LOWER BACK EXERCISES, WALKS TOLERATED. LEARNING BARRIERS / SPECIAL NEEDS CHANGE FROM LAST VISIT?NO BARRIERS TO LEARNING?NO HEARING IMPAIRED?NO TNITUS VISION IMPAIRED?YES COGNITIVELY IMPAIRED?NO :CORRECTIVE LENSES READINESS TO LEARN?YES LEARNING PREFERENCES?NO LEARNING CAPABILITIES PRESENT?YES EMOTIONAL BARRIERS?NO SPECIAL DEVICES?NO HOSPITAL HOUSEKEEPER NEEDED?NO PAIN CLINIC PFS, CLERGY, PUBLIC HEALTH REFERRALS PFS REFERRAL NEEDED?NO CLERGY REFERRAL NEEDED?NO PUBLIC HEALTH REFERRAL NEEDED?NO WAS THE PROVIDER NOTIFIED OF ANY PERTINENT INFO? N/A HAS THE PATIENT BEEN EDUCATED REGARDING HIS/HER PLAN OF CARE?YES HAS THE PATIENT BEEN EDUCATED REGARDING PAIN, THE RISK FOR PAIN, THE IMPORTANCE OF EFFECTIVE PAIN MANAGEMENT, AND THE PAIN ASSESSMENT PROCESS?YES LATEX QUESTIONNAIRE LATEX ALLERGY : HAVE YOU EVER DEVELOPED ANY TYPE OF REACTION AFTER HANDLING LATEX PRODUCTS SUCH RUBBER GLOVES, CONDOMS, DIAPHRAGMS, BALLOONS, SOCKS, OR UNDERWEAR?NO LATEX ALLERGY : HAVE YOU EVER DEVELOPED ANY TYPE OF REACTION DURING OR AFTER DENTAL APPOINTMENT, VAGINAL/RECTAL EXAMINATION, SURGICAL PROCEDURE, OR ANY OTHER EXPOSURE?NO DATE ASKED : 10/02/2018 LATEX RISK : HAVE YOU EVER HAD ANY DIFFICULTY BREATHING OR HIVES AFTER EATING OR HANDLING ANY FRUITS, OR VEGETABLES; SUCH KIWI, BANANAS, STONE FRUITS, OR CHESTNUTSNO LATEX RISK : DO YOU HAVE A PREVIOUS PERSONAL HISTORY OF MORE THAN NINE SURGERIES, SPINA BIFIDA, OR REPEATED CATHERIZATIONS? NO LATEX RISK : ARE YOU FREQUENTLY EXPOSED TO LATEX PRODUCTS IN YOUR OCCUPATION?NO CAFFEINE CAFFEINE USE?YES 3 CUPS COFFEE DAILY ADVANCE DIRECTIVE ADVANCE DIRECTIVE DISCUSSED WITH PATIENT:YES HEALTH CARE PROXY RAH ROSARIO [phone] JAIN [id number] NONE NO TEMPLE BELIEFS THAT WOULD IMPACT HEALTH CARE. MARITAL STATUS: .. ALCOHOL SCREENING DID YOU HAVE A DRINK CONTAINING ALCOHOL IN THE PAST YEAR?YES HOW OFTEN DID YOU HAVE A DRINK CONTAINING ALCOHOL IN THE PAST YEAR?MONTHLY OR LESS (1 POINT) POINTS1 INTERPRETATIONNEGATIVE OCCUPATION: DISABLED. SEXUAL HX HAD SEX IN THE LAST 12 MONTHS (VAGINAL, ORAL, OR ANAL)?NO HAVE YOU EVER HAD AN STD?NO REVIEWED WITH PT 12/07/17 1150 LASREVIEWED WITH PT 01/10/18 1030 LAS02/20/18 REVIEWED WITH PT. AD REVIEWED WITH PT 03/12/18 1159 BVREVIEWED WITH PT 05/10/18 1056 LAS REVIEWED WITH PATIENT 12/12/18 1129 NLJREVIEWED WITH PATIENT 05/08/2019 1411 JSREVIEWED WITH PATIENT 06/05/2019 1054. HOSPITALIZATION/MAJOR DIAGNOSTIC PROCEDURE SURGICAL RELATED REVIEW OF SYSTEMS REVIEWED BY: PROVIDER: KENDRA CRAFT MD . CONSTITUTIONAL: ANY CHANGE IN YOUR MEDICAL CONDITION? NO . CHILLS NO . FEVER NO . INFECTION: DO YOU HAVE NEW INFECTIONS? NO . DO YOU HAVE HISTORY OF MRSA? NO . MUSCULOSKELETAL: ANY NEW PATTERNS OF PAIN OR NUMBNESS? YES, PAIN HAS INCREASED . GASTROENTEROLOGY: ANY NEW CHANGE IN BOWEL CONTROL? NO . GENITOURINARY: ANY NEW CHANGE IN BLADDER CONTROL? NO . IS THERE A CHANCE YOU COULD BE ? NO . HEMATOLOGY/LYMPH: DO YOU TAKE ANY BLOOD THINNERS? (FOR EXAMPLE- COUMADIN, PLAVIX, AGGRENOX, PLATEL, PRADAXA, OR XARELTO) NO . WHEN WAS YOUR LAST DOSE? DATE: TIME: . NEUROLOGY: HAVE YOU FALLEN IN THE PAST 12 MONTHS? NO . ANY NEW EXTREMITY NUMBNESS OR WEAKNESS? NO . CARDIOLOGY: DO YOU HAVE A PACEMAKER OR DEFIBRILLATOR? NO . RESPIRATORY: HAVE YOU BEEN SICK IN THE PAST WEEK? NO . FEVER NO . FLU LIKE SYMPTOMS? NO . COUGH NO . INTEGUMENTARY: DO YOU HAVE ANY RASHES OR OPEN SORES? NO . ALLERGIC/IMMUNO: ARE YOU ALLERGIC TO IV DYE? NO . ANY NEW ALLERGIES? NO . PSYCHIATRIC: DO YOU HAVE THOUGHTS OF HURTING YOURSELF OR SOMEONE ELSE? NO . ARE YOU ABUSED, NEGLECTED, OR IN AN UNSAFE ENVIRONMENT? NO . ENDOCRINOLOGY: ARE YOU DIABETIC? NO . OTHER: DO YOU NEED ANY PRESCRIPTIONS? NO . IF YES, PLEASE LIST: ____ . ANY NEW PROBLEMS WITH YOUR MEDICATIONS? NO . WHEN DID YOU LAST EAT? ____ . WHEN DID YOU LAST DRINK? ____ . WHAT DID YOU LAST DRINK? ____ . NAME OF PERSON DRIVING YOU HOME? ____ . DO YOU HAVE ANY OTHER QUESTIONS OR CONCERNS NO . VITAL SIGNS WT 130.0 LBS, HT 64 IN, BMI 22.31 INDEX, BP 135/60 MM HG, HR 99 /MIN, RR 18 /MIN, TEMP 97.3 F, OXYGEN SAT % 98%, SAFE IN ENV? (Y/N) Y, NA INITIALS AW 1332, REVIEWED BY: EM. EXAMINATION GENERAL EXAMINATION: PATIENT IS ALERT O X 3 AND COOPERATIVE. ANTALGIC WALK. PATIENT IS LIMPING FROM THE RIGHT LEG, WHICH IS WEAKER AT EXTENSION AND FLEXION. STRAIGHT LEG RAISE OF THE RIGHT LEG IS POSITIVE AT 45 DEGREES FOR RADICULOPATHY. MRI OF THE LUMBAR SPINE DONE ON 07/12/2019 SHOWS POST LAMINECTOMY CHANGES, FUSION, AND SEVERE CANAL STENOSIS AT L3-L4 LEVEL. 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 CRAVEN'S PAIN MANAGEMENT CASE. I WOULD LIKE TO DISCUSS THE PATIENT'S LUMBAR MRI DONE ON 07/12/2019 WITH THE RADIOLOGIST TO GAIN A BETTER UNDERSTANDING OF WHERE THE PAIN IS COMING FROM. I BELIEVE THE PAIN IS FOLLOWING THE DISTRIBUTION OF HER PRIOR FUSION SURGERY, AND NOT WHERE THE SEVERE CANAL STENOSIS IS LOCATED AT L3-L4. I MAY CONSIDER REPEATING A LUMBAR EPIDURAL WITH CATHETER, A MILD PROCEDURE, OR SCS TRIAL IN THE FUTURE FOR THE PATIENT. THE PATIENT WILL FOLLOW UP WITH THE NURSE PRACTITIONER IN SEVERAL WEEKS. INSTRUCTIONS WERE GIVEN, QUESTIONS WERE ANSWERED, PATIENT REPORTS UNDERSTANDING AND AGREES WITH THE PLAN. I, MARY VILLA, DOCUMENTED THE ABOVE INFORMATION ACTING A SCRIBE FOR DR. CRAFT. I HAVE REVIEWED THE ABOVE DOCUMENT, WRITTEN BY MARY DON AND I VERIFY THAT IT IS ACCURATE. . PROCEDURE CODES [id number] ESTABILISHED PATIENT [facility] FACILITY CHARGE [id number] CURRENT MEDS W/DOSAGES DOCUMENTED G8730 PAIN ASSESS POS TOOL F/U PLAN DOC DISPOSITION & COMMUNICATION FOLLOW UP 4 WEEKS (REASON: F/UP WITH BIOLOGICAL SCIENTIST TO CONSIDER LESI, PT TO CTX MED MANAGE WITH PCP ) ELECTRONICALLY SIGNED BY KENDRA CRAFT MD, MD ON 07/25/2019 AT 04:43 PM EDT DISCLAIMER : THIS IS A VISIT SUMMARY EXTRACTED FROM THE [facility] CHART. IT IS NOT A COPY OF THE [facility] PROGRESS NOTE. ZINA
== END ==
LOC: M PAIN 13:30
PROVIDERS: ATTEND Anesthesiology
DX: M96.1 Postlaminectomy syndrome, not elsewhere classified (principal); M51.16 Intervertebral disc disorders with radiculopathy, lumbar region; M48.061 Spinal stenosis, lumbar region without neurogenic claudication; M79.7 Fibromyalgia; K21.9 Gastro-esophageal reflux disease without esophagitis; E78.5 Hyperlipidemia, unspecified; E55.9 Vitamin D deficiency, unspecified; G47.00 Insomnia, unspecified; F17.210 Nicotine dependence, cigarettes, uncomplicated; Z88.2 Allergy status to sulfonamides; Z88.6 Allergy status to analgesic agent; Z88.8 Allergy status to other drugs, medicaments and biological substances; Z91.09 Other allergy status, other than to drugs and biological substances; Z79.899 Other long term (current) drug therapy

== ENCOUNTER → 2019-07-28 | Outpatient (REF) | payer MEDICARE ==
[2019-07-28 11:00] LABS: EOS % 0.3 % (0.0-3.0); HEMATOCRIT 38.4 % (36.0-47.0); HEMOGLOBIN 12.5 g/dl (12.0-15.5); LYMPH # 0.8 10^3/uL (1.5-5.0); LYMPH % 24.5 % (24.0-44.0); MEAN CORPUSCULAR HGB CONC 32.6 g/dl (32.0-36.5); MEAN CORPUSCULAR VOLUME 98.2 fl (80.0-96.0); MONO # 0.4 10^3/uL (0.0-0.8); MONO % 12.7 % (0.0-5.0); NEUTROPHILS # 1.9 10^3/uL (1.5-8.5); NEUTROPHILS % 61.5 % (36.0-66.0); PLATELET COUNT, AUTOMATED 172 10^3/uL (150-450); RED BLOOD COUNT 3.91 10^6/uL (4.00-5.40); WHITE BLOOD COUNT 3.1 10^3/uL (4.0-10.0)
[2019-07-28 11:23] LABS: HEMOGLOBIN A1c 5.2 %
[2019-07-28 11:26] LABS: ALBUMIN 4.3 GM/DL (3.2-5.2); ALT/SGPT 37 U/L (12-78); BILIRUBIN,TOTAL 0.5 MG/DL (0.2-1.0); BLOOD UREA NITROGEN 12 MG/DL (7-18); CALCIUM LEVEL 9.1 MG/DL (8.5-10.1); CARBON DIOXIDE LEVEL 30 MEQ/L (21-32); CHLORIDE LEVEL 105 MEQ/L (98-107); CREATININE FOR GFR 0.85 MG/DL (0.55-1.30); GLOMERULAR FILTRATION RATE > 60.0 (>51); GLUCOSE, FASTING 103 MG/DL (70-100); POTASSIUM SERUM 3.7 MEQ/L (3.5-5.1); SODIUM LEVEL 142 MEQ/L (136-145); TOTAL PROTEIN 7.4 GM/DL (6.4-8.2)
[2019-07-28 11:33] LABS: PTH INTACT 64.6 PG/ML (18.5-88.0); TOTAL 25(OH) VITAMIN D 56.8 NG/ML (30.0-100.0)
[2019-07-28 11:35] LABS: VITAMIN B12 LEVEL 579 PG/ML (247-911)
== END ==
LOC: M SFHCPLAZ 09:23
PROVIDERS: ATTEND Family Medicine
DX: M06.9 Rheumatoid arthritis, unspecified (principal); R73.01 Impaired fasting glucose; E55.9 Vitamin D deficiency, unspecified; D50.9 Iron deficiency anemia, unspecified; E53.8 Deficiency of other specified B group vitamins; Z79.899 Other long term (current) drug therapy

== ENCOUNTER → 2019-08-20 | Outpatient (CLI) | payer MEDICARE ==
[~2019-08-20] MED LIST changes: +CYCL-707 PO; -CYCL10TA PO
--- NOTE | 2019-08-22 02:18 | ECWPNPC ---
PATIENT NAME: LOGAN CRAVEN : 1960 GENDER: FEMALE VISIT DATE: 08/20/2019 DISCHARGE DATE: 08/20/19 1132 VISIT LOCKED DATE TIME: PHYSICIAN: ANDREA ELIAS PHYSICIAN PAGER NO: [phone] RESOURCE: ANDREA ELIAS REASON FOR APPOINTMENT 1. FOLLOW UP [phone] HISTORY OF PRESENT ILLNESS HISTORY OF PRESENT ILLNESS: PATIENT HAS AGREED TO TELEPHONE VISIT TODAY. THIS IS A FOLLOW-UP OF PERSISTENT LOW BACK PAIN AND BILATERAL LEG PAIN WITH A HISTORY OF SPINAL FUSION. DR. CRAFT EVALUATED RECENT MRI TO CONSIDER FOR MILD PROCEDURE. HE DOES NOT FEEL THAT SHE IS A CANDIDATE. HE WOULD LIKE TO CONSIDER LUMBAR EPIDURAL STEROID INJECTION WITH CATHETER AND DORSAL COLUMN STIM TRIAL. RATING PAIN LEVEL A 5/10 VAS. PAIN THE PATIENT DESCRIBES THE PAIN... FALL RISK SCREENING: SCREENING :NO FALLS REPORTED IN THE LAST YEAR CURRENT MEDICATIONS TAKING VITAMIN D 2000 UNIT CAPSULE 1 TABLET ORALLY ONCE A DAY TAKING CANE . MISCELLANEOUS QUAD CANE _ QD R27 TAKING CALCIUM 600 + D 600-400 MG-UNIT TABLET 1 TABLET ORALLY ONCE A DAY TAKING CARAFATE 1 GM TABLET 1 TABLET ON AN EMPTY STOMACH ORALLY AC TID TAKING ESOMEPRAZOLE MAGNESIUM 40 MG CAPSULE DELAYED RELEASE 1 CAPSULE ORALLY AC BID TAKING COLESTIPOL HCL 1 GM TABLET 1 TAB ORALLY ONCE A DAY TAKING ELMIRON 100 MG CAPSULE 1 CAPSULE ON AN EMPTY STOMACH 1 TABLET THREE A DAY TAKING ATORVASTATIN CALCIUM 20 MG TABLET 1 TABLET ORALLY ONCE A DAY TAKING DERMOTIC 0.01 % OIL 5 DROPS INTO AFFECTED EAR OTIC TWICE A DAY X 5D C FLARES TAKING ORPHENADRINE CITRATE ER 100 MG TABLET EXTENDED RELEASE 12 HOUR 1 TABLET ORALLY TWICE A DAY TAKING PREMARIN 0.625 MG/GM CREAM 1 GRAM VAGINAL WEEKLY TAKING CARAFATE 1 GM TABLET 1 TABLET ON AN EMPTY STOMACH ORALLY AC TID TAKING COLESTIPOL HCL 1 GM TABLET 1 TAB ORALLY ONCE A DAY TAKING ESOMEPRAZOLE MAGNESIUM 40 MG CAPSULE DELAYED RELEASE 1 CAPSULE ORALLY AC BID TAKING ELMIRON 100 MG CAPSULE TAKE ONE CAPSULE BY MOUTH THREE TIMES A DAY ON AN EMPTY STOMACH TAKING SARILUMAB 150 MG/1.14ML SOLUTION PREFILLED SYRINGE 1.14 ML SUBCUTANEOUS TAKING LEFLUNOMIDE 20 MG TABLET 1 TABLET ORALLY ONCE A DAY TAKING CYANOCOBALAMIN 100 MCG TABLET 1 TABLET ORALLY ONCE A DAY TAKING CARISOPRODOL 350 MG TABLET 1 TABLET NEEDED ORALLY TID PRN, MDD 3 TAKING HYDROCODONE-ACETAMINOPHEN 5-325 MG TABLET 1 TABLET NEEDED ORALLY TID PRN MDD = 3 MEDICATION LIST REVIEWED AND RECONCILED WITH THE PATIENT PAST MEDICAL HISTORY RA/OSTEOARTHRITIS/FIBROMYALGIA NICOTINE ADDICTION-08/2011 FEV1 2.5L (101%)/RATIO 97%-1 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 GERD/DYSPEPSIA-06/2016 NORMAL EGD/COLON/SB CAPSULE-R HYPERLIPIDEMIA 2B ENDOMETRIOSIS 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 SPENCER 2008 FOLLOWS WITH WOMAN TO WOMAN HISTORY OF TUBULAR ADENOMA-NORMAL COLONOSCOPY APRIL 2009 NORMAL COLONOSCOPY C - RANDOM BIOPSIES-[place] COLONOSCOPY 07/18/16 REINDL CERVICAL DJD STATUS POST MULTILEVEL FUSION-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 BARAJAS, 01/2014 FILLED OUT LTD PAPERWORK FOR GUARDIAN-PATIENT DEFERRED WCE INSOMNIA, COOMORBID ALLERGIES METHOTREXATE (ANTI-RHEUMATIC): MIGRANES - SIDE EFFECTS CYMBALTA: RACING PLUSE, SHAKES - ALLERGY WELLBUTRIN: PALPITATIONS, SEVERE - ALLERGY SULFA (FOR ALLERGY USE ONLY): NAUSEA/VOMITING - ALLERGY LYRICA: PALPITATIONS - ALLERGY CELEXA: PALPITATIONS - SIDE EFFECTS ORENCIA: ANAPHYLAXIS - ALLERGY TOPICAL ALOE VERA: SEVERE ITCHING CANNOT TOLERATE ASA BASED PRODUCTS/ NSAIDS: HX STOMACH BLEED - CONTRAINDICATION SURGICAL HISTORY LAPAROSCOPY X2 CRHISTINE BTL 1981 TVH [address] SPENCER 2007 VAGINAL CUFF BX. IRMA CHANDLER NP 03/07 CHOLECYSTECTOMY 06/09 ACDF-C4-T1 10/06 R BREAST [id number] 09/2010 ABOVE L CTR-DR EAST 10/27/14 L4-L5 FUSION/LAMINECTOMY 09/2013 NORMAL EGD/COLON/SB CAPSULE-R 06/2016 FUSION C5 C6 1998 HYSTERECTOMY 1988 BENIGN MOLE REMOVAL 2018 FAMILY HISTORY FATHER: , DM, LUNG CANCER, CAD, DX ALZHEIMER, DIAGNOSED WITH OTHER MALIGNANT NEOPLASM OF UNSPECIFIED SITE MOTHER: , COPD SIBLINGS: BROTHER HTN,1/2 BROTHER DM SON(S): HTN PATERNAL GRAND FATHER: , CANCER, COLON PATERNAL GRAND MOTHER: COLON CANCER LATER YEARS MATERNAL UNCLE: PROSTATE CANCER 70'S ,LEUKEMIA IN HIS 50'S MATERNAL AUNT: ALIVE, HYPERLIPIDEMIA, COLON CANCER IN HER 60'S 2 BROTHER(S) , 1 SISTER(S) - HEALTHY. 1 SON(S) , 1 DAUGHTER(S) . PGM, MGF C COLON CANCER\\\\NMOM-GRAVES DISEASE\\\\NSON-SEIZURES, BRADYCARDIA-PACEMAKER, AFIB. SOCIAL HISTORY GENERAL: TOBACCO USE ARE YOU A:CURRENT SMOKER ARE YOU INTERESTED IN QUITTING?THINKING ABOUT QUITTING COUNSELED THE PATIENT ON SMOKING CESSATION, EDUCATION BIBMDTHS09/22/2020 HOW MANY CIGARETTES A DAY DO YOU SMOKE?5 OR LESS HOW SOON AFTER YOU WAKE UP DO YOU SMOKE YOUR FIRST CIGARETTE?AFTER 60 MIN HOW OFTEN DO YOU SMOKE CIGARETTES?EVERY DAY PATIENT COUNSELED ON THE DANGERS OF TOBACCO USE AND URGED TO QUIT:08/20/2019 SMOKING CESSATION INFORMATION GIVEN03/25/2019 LATEX QUESTIONNAIRE LATEX ALLERGY : HAVE YOU EVER DEVELOPED ANY TYPE OF REACTION AFTER HANDLING LATEX PRODUCTS SUCH RUBBER GLOVES, CONDOMS, DIAPHRAGMS, BALLOONS, SOCKS, OR UNDERWEAR?NO LATEX ALLERGY : HAVE YOU EVER DEVELOPED ANY TYPE OF REACTION DURING OR AFTER DENTAL APPOINTMENT, VAGINAL/RECTAL EXAMINATION, SURGICAL PROCEDURE, OR ANY OTHER EXPOSURE?NO LATEX RISK : HAVE YOU EVER HAD ANY DIFFICULTY BREATHING OR HIVES AFTER EATING OR HANDLING ANY FRUITS, OR VEGETABLES; SUCH KIWI, BANANAS, STONE FRUITS, OR CHESTNUTSNO LATEX RISK : DO YOU HAVE A PREVIOUS PERSONAL HISTORY OF MORE THAN NINE SURGERIES, SPINA BIFIDA, OR REPEATED CATHERIZATIONS? NO LATEX RISK : ARE YOU FREQUENTLY EXPOSED TO LATEX PRODUCTS IN YOUR OCCUPATION?NO DATE ASKED : 08/20/2019 ALCOHOL SCREENING DID YOU HAVE A DRINK CONTAINING ALCOHOL IN THE PAST YEAR?YES HOW OFTEN DID YOU HAVE A DRINK CONTAINING ALCOHOL IN THE PAST YEAR?MONTHLY OR LESS (1 POINT) POINTS1 INTERPRETATIONNEGATIVE RECREATIONAL DRUG USE DRUG USE?NO CAFFEINE CAFFEINE USE?YES 3 CUPS COFFEE DAILY SEXUAL HX HAD SEX IN THE LAST 12 MONTHS (VAGINAL, ORAL, OR ANAL)?NO HAVE YOU EVER HAD AN STD?NO HIV / HEP-C SCREENING HIV TEST OFFERED TO PATIENT:YES DATE OFFERED:06/28/2017 TEST ACCEPTED:NO HEP-C TEST OFFERED TO PATIENT:YES DATE OFFERED:06/28/2017 REASON:PATIENT DECLINED TEST ACCEPTED:NO REASON:PATIENT DECLINED CAODAISM [id number] NONE NO BUDDHISM BELIEFS THAT WOULD IMPACT HEALTH CARE. LANGUAGE LANGUAGES SPOKEN:GEORGIAN EDUCATION LEVEL OF EDUCATION:HIGH SCHOOL GED LEARNING BARRIERS / SPECIAL NEEDS CHANGE FROM LAST VISIT?NO BARRIERS TO LEARNING?NO HEARING IMPAIRED?NO TNITUS VISION IMPAIRED?YES COGNITIVELY IMPAIRED?NO :CORRECTIVE LENSES READINESS TO LEARN?YES LEARNING PREFERENCES?NO LEARNING CAPABILITIES PRESENT?YES EMOTIONAL BARRIERS?NO SPECIAL DEVICES?NO STEEL SPAR OPERATOR NEEDED?NO DOMESTIC VIOLENCE DO YOU FEEL SAFE IN YOUR ENVIRONMENT?YES OCCUPATION: DISABLED. DIET: AVOIDS GREASY, FRIED FOODS, DAIRY.TRIES TO EAT SMALLER PORTIONS. EXERCISE: LOWER BACK EXERCISES, WALKS TOLERATED. MARITAL STATUS: .. OTHERS AT HOME: DAUGHTER, SON-IN LAW. NEW PATIENT PAIN DIARY TODAY'S VISITNOTES 08/20/2019 PATIENT DESCRIBES PAIN :HAVE IT ALL THE TIME, SORE FROM 0-10, WHAT LEVEL IS YOUR PAIN TODAY?7 PAIN CLINIC PFS, CLERGY, PUBLIC HEALTH REFERRALS PFS REFERRAL NEEDED?NO CLERGY REFERRAL NEEDED?NO PUBLIC HEALTH REFERRAL NEEDED?NO WAS THE PROVIDER NOTIFIED OF ANY PERTINENT INFO? N/A HAS THE PATIENT BEEN EDUCATED REGARDING HIS/HER PLAN OF CARE?YES HAS THE PATIENT BEEN EDUCATED REGARDING PAIN, THE RISK FOR PAIN, THE IMPORTANCE OF EFFECTIVE PAIN MANAGEMENT, AND THE PAIN ASSESSMENT PROCESS?YES ADVANCE DIRECTIVE ADVANCE DIRECTIVE DISCUSSED WITH PATIENT:YES HEALTH CARE PROXY RAH ROSARIO [phone] HOSPITALIZATION/MAJOR DIAGNOSTIC PROCEDURE SURGICAL RELATED REVIEW OF SYSTEMS REVIEWED BY: PROVIDER: ANDREA MCLEAN . CONSTITUTIONAL: ANY CHANGE IN YOUR MEDICAL CONDITION? NO . CHILLS NO . FEVER NO . INFECTION: DO YOU HAVE NEW INFECTIONS? NO . DO YOU HAVE HISTORY OF MRSA? NO . MUSCULOSKELETAL: ANY NEW PATTERNS OF PAIN OR NUMBNESS? NO . GASTROENTEROLOGY: ANY NEW CHANGE IN BOWEL CONTROL? NO . GENITOURINARY: ANY NEW CHANGE IN BLADDER CONTROL? NO . IS THERE A CHANCE YOU COULD BE ? NO . HEMATOLOGY/LYMPH: DO YOU TAKE ANY BLOOD THINNERS? (FOR EXAMPLE- COUMADIN, PLAVIX, AGGRENOX, PLATEL, PRADAXA, OR XARELTO) NO . WHEN WAS YOUR LAST DOSE? DATE: TIME: . NEUROLOGY: HAVE YOU FALLEN IN THE PAST 12 MONTHS? NO . ANY NEW EXTREMITY NUMBNESS OR WEAKNESS? NO . CARDIOLOGY: DO YOU HAVE A PACEMAKER OR DEFIBRILLATOR? NO . RESPIRATORY: HAVE YOU BEEN SICK IN THE PAST WEEK? NO . FEVER NO . FLU LIKE SYMPTOMS? NO . COUGH NO . INTEGUMENTARY: DO YOU HAVE ANY RASHES OR OPEN SORES? NO . ALLERGIC/IMMUNO: ARE YOU ALLERGIC TO IV DYE? NO . ANY NEW ALLERGIES? NO . PSYCHIATRIC: DO YOU HAVE THOUGHTS OF HURTING YOURSELF OR SOMEONE ELSE? NO . ARE YOU ABUSED, NEGLECTED, OR IN AN UNSAFE ENVIRONMENT? NO . ENDOCRINOLOGY: ARE YOU DIABETIC? NO . OTHER: DO YOU NEED ANY PRESCRIPTIONS? NO . IF YES, PLEASE LIST: ____ . ANY NEW PROBLEMS WITH YOUR MEDICATIONS? NO . WHEN DID YOU LAST EAT? ____ . WHEN DID YOU LAST DRINK? ____ . WHAT DID YOU LAST DRINK? ____ . NAME OF PERSON DRIVING YOU HOME? ____ . DO YOU HAVE ANY OTHER QUESTIONS OR CONCERNS YES, WONDERING WHAT DR. Muller HAD DECIDED REGARDING DISCUSSION WITH RADIOLOGIST ABOUT MRI AND MILD PROCEDURE . ASSESSMENTS SPINAL STENOSIS, LUMBAR REGION WITH NEUROGENIC CLAUDICATION - M48.062 (PRIMARY) LUMBAR POST-LAMINECTOMY SYNDROME - M96.1 TREATMENT SPINAL STENOSIS, LUMBAR REGION WITH NEUROGENIC CLAUDICATION NOTES: FOLLOW-UP IS SCHEDULED IN 4-6 WEEKS TO DISCUSS TREATMENT OPTIONS. TOTAL TIME SPENT DURING TELEPHONE VISIT TODAY WAS APPROXIMATELY 11 MINUTES. OTHERS NOTES: NO VITALS OBTAINED DUE TO PHONE VISIT. DISPOSITION & COMMUNICATION FOLLOW UP 4-6 WEEKS PREPROCEDURE WITH ANDREA (REASON: LBP) ELECTRONICALLY SIGNED BY CARIDAD HENLEY ON 08/21/2019 AT 11:13 AM EDT DISCLAIMER : THIS IS A VISIT SUMMARY EXTRACTED FROM THE [employer] CHART. IT IS NOT A COPY OF THE [employer] PROGRESS NOTE. ZINA
== END ==
LOC: M PAIN 10:45
PROVIDERS: ATTEND Nurse Practitioner Family
DX: M48.062 Spinal stenosis, lumbar region with neurogenic claudication (principal); M96.1 Postlaminectomy syndrome, not elsewhere classified; M79.7 Fibromyalgia; K21.9 Gastro-esophageal reflux disease without esophagitis; E55.9 Vitamin D deficiency, unspecified; G47.00 Insomnia, unspecified; F17.210 Nicotine dependence, cigarettes, uncomplicated; Z88.2 Allergy status to sulfonamides; Z88.6 Allergy status to analgesic agent; Z88.8 Allergy status to other drugs, medicaments and biological substances; Z91.09 Other allergy status, other than to drugs and biological substances; Z79.899 Other long term (current) drug therapy

== ENCOUNTER → 2019-10-01 | Outpatient (CLI) | payer MEDICARE ==
--- NOTE | 2019-10-03 03:07 | ECWPNPC ---
PATIENT NAME: LOGAN CRAVEN : 1960 GENDER: FEMALE VISIT DATE: 10/01/2019 DISCHARGE DATE: 10/01/19 1219 VISIT LOCKED DATE TIME: PHYSICIAN: ANDREA ELIAS PHYSICIAN PAGER NO: [phone] RESOURCE: ANDREA ELIAS REASON FOR APPOINTMENT 1. LBP HISTORY OF PRESENT ILLNESS GENERAL: HERE FOR FOLLOW-UP OF CHRONIC LOW BACK PAIN AND BILATERAL LEG RADICULAR SYMPTOMS VERSUS NEUROPATHY. HISTORY OF L4-5 FUSION IN 2013. LAST EPIDURAL DONE IN MAY AT L5-S1 LEVEL DID NOT HELP. DR. CRAFT EVALUATED HER FOR MILD PROCEDURE, BUT FELT THAT SHE WAS NOT A CANDIDATE. HE HAD RECOMMENDED EPIDURAL STEROID INJECTION WITH CATHETER AND CONSIDERATION FOR DORSAL COLUMN STIMULATOR. DISCUSSED TREATMENT OPTIONS WITH PATIENT. -. FALL RISK SCREENING: SCREENING :NO FALLS REPORTED IN THE LAST YEAR PAIN SCREENING: PATIENT HAS A COMPLAINT OF ACUTE OR CHRONIC PAIN :YES LOCATION OF PAIN:LOW BACK, LEG(S), OTHER: BILATERAL BUTT CHEEKS, OUTSIDE OF BILATERAL LEGS AND BILATERAL BACK OF LEGS INTENSITY OF PAIN (SCALE OF 1 TO 10):8 WHAT DOES YOUR PAIN FEEL LIKE:ACHING, CONTINOUS DURATION:CONSTANT PAIN IS INCREASED BY:ACTIVITIES, PROLONGED STANDING, OTHERS WALKING PAIN IS DECREASED BY:USE OF PAIN MEDICATIONS, SITTING, OTHERS RESTING, LYING DOWN NURSING NOTE: -. PAIN CENTER INTAKE QUESTIONS: DO YOU HAVE A HISTORY OF MRSA? :NO DO YOU TAKE A BLOOD THINNERS? :NO DO YOU HAVE ANY BLEEDING DISORDERS? :NO ANY NEW NUMBNESS OR WEAKNESS IN YOUR LEGS OR ARMS? :YES STATES HER RIGHT LEG SEEMS TO BE MORE INTENSE AND A LITTLE WEAKER ANY PACEMAKER,DEFIBRILLATOR, OR DORSAL COLUMN STIMULATOR? :NO DO YOU HAVE ANY RASHES OR OPEN SORES? :NO ARE YOU ALLERGIC TO IV DYE? :NO ARE YOU DIABETIC? :NO ANY NEW PROBLEMS WITH YOUR MEDICATIONS? :NO HAVE YOU RECEIVED A VACCINE IN THE PAST 30 DAYS? :NO DO YOU PLAN TO RECEIVE A VACCINE IN THE NEXT 21 DAYS? :NO DO YOU NEED ANY PRESCRIPTION? :NO DO YOU TAKE ANY IMMUNOSUPPRESSIVE MEDICATIONS? :YES RINVOQ- DAILY 15 MG FOR RA ANY HISTORY OF SEIZURES? :NO ANY HISTORY OF CARDIAC ISSUES OR EVENTS? :NO DO YOU HAVE SLEEP APNEA? :NO ANY RECENT HEAD INJURY? :NO HAVE YOU HAD A CHANGE IN YOUR PAIN OR NUMBNESS? :NO STATES PAIN HAS JUST INCREASED CURRENT MEDICATIONS TAKING VITAMIN D 2000 UNIT CAPSULE 1 TABLET ORALLY ONCE A DAY TAKING CANE . MISCELLANEOUS QUAD CANE _ QD R27 TAKING CALCIUM 600 + D 600-400 MG-UNIT TABLET 1 TABLET ORALLY ONCE A DAY TAKING ELMIRON 100 MG CAPSULE 1 CAPSULE ON AN EMPTY STOMACH 1 TABLET THREE A DAY TAKING PREMARIN 0.625 MG/GM CREAM 1 GRAM VAGINAL WEEKLY TAKING CARAFATE 1 GM TABLET 1 TABLET ON AN EMPTY STOMACH ORALLY AC TID TAKING COLESTIPOL HCL 1 GM TABLET 1 TAB ORALLY ONCE A DAY TAKING ESOMEPRAZOLE MAGNESIUM 40 MG CAPSULE DELAYED RELEASE 1 CAPSULE ORALLY AC BID TAKING LEFLUNOMIDE 20 MG TABLET 1 TABLET ORALLY ONCE A DAY TAKING CYANOCOBALAMIN 500 MCG TABLET 1 TABLET ORALLY 1 EVERY 5 DAYS TAKING HYDROCODONE-ACETAMINOPHEN 5-325 MG TABLET 1 TABLET NEEDED ORALLY TID PRN MDD = 3 TAKING CARISOPRODOL 350 MG TABLET 1 TABLET NEEDED ORALLY TID PRN, MDD 3 TAKING ATORVASTATIN CALCIUM 20 MG TABLET 1 TABLET ORALLY ONCE A DAY TAKING RINVOQ 15 MG TABLET EXTENDED RELEASE 24 HOUR 1 TABLET ORALLY ONCE A DAY NOT-TAKING DERMOTIC 0.01 % OIL 5 DROPS INTO AFFECTED EAR OTIC TWICE A DAY X 5D C FLARES NOT-TAKING ORPHENADRINE CITRATE ER 100 MG TABLET EXTENDED RELEASE 12 HOUR 1 TABLET ORALLY TWICE A DAY NOT-TAKING SARILUMAB 150 MG/1.14ML SOLUTION PREFILLED SYRINGE 1.14 ML SUBCUTANEOUS DISCONTINUED ELMIRON 100 MG CAPSULE TAKE ONE CAPSULE BY MOUTH THREE TIMES A DAY ON AN EMPTY STOMACH ORALLY THREE TIMES A DAY DISCONTINUED ESOMEPRAZOLE MAGNESIUM 40 MG CAPSULE DELAYED RELEASE 1 CAPSULE ORALLY AC BID DISCONTINUED COLESTIPOL HCL 1 GM TABLET 1 TAB ORALLY ONCE A DAY DISCONTINUED CARAFATE 1 GM TABLET 1 TABLET ON AN EMPTY STOMACH ORALLY AC TID MEDICATION LIST REVIEWED AND RECONCILED WITH THE PATIENT PAST MEDICAL HISTORY RA/OSTEOARTHRITIS/FIBROMYALGIA NICOTINE ADDICTION-08/2011 FEV1 2.5L (101%)/RATIO 97%-1 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 GERD/DYSPEPSIA-06/2016 NORMAL EGD/COLON/SB CAPSULE-R HYPERLIPIDEMIA 2B ENDOMETRIOSIS 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 SPENCER 2008 FOLLOWS WITH WOMAN TO WOMAN HISTORY OF TUBULAR ADENOMA-NORMAL COLONOSCOPY APRIL 2009 NORMAL COLONOSCOPY C - RANDOM BIOPSIES-[place] COLONOSCOPY 07/18/16 REINDL CERVICAL DJD STATUS POST MULTILEVEL FUSION-01/2010 MRI STABLE ACDF C BASELINE DJD ATROPHIC VAGINITIS OSTEOPENIA VITAMIN D DEFICIENCY CHRONIC SINUSITIS / NONE LATELY RECURRENT UTI / YEARS AGO CHRONIC DIARRHEA STATUS POST LAPAROSCOPIC CHOLECYSTECTOMY JULY 2009//[id number] CHRONIC DRY EYES MEMORY LOSS 2 INSOMNIA, WORK STRESS-12/2011 NORMAL MRI BRAIN S AND NORMAL WORKUP LUMBAR DJD-L2/3 BULGE C L IF HNP C L L2 COMPRESSION, L3/4 SEVERE CCS C B L3 COMPRESSION BY 03/2017 MRI LONG-TERM DISABILITY-TAKEN OOW 08/05/13 [address] BARAJAS, 01/2014 FILLED OUT LTD PAPERWORK FOR GUARDIAN-PATIENT DEFERRED WCE INSOMNIA, COOMORBID ALLERGIES METHOTREXATE (ANTI-RHEUMATIC): MIGRANES - SIDE EFFECTS CYMBALTA: RACING PLUSE, SHAKES - ALLERGY WELLBUTRIN: PALPITATIONS, SEVERE - ALLERGY SULFA (FOR ALLERGY USE ONLY): NAUSEA/VOMITING - ALLERGY LYRICA: PALPITATIONS - ALLERGY CELEXA: PALPITATIONS - SIDE EFFECTS ORENCIA: ANAPHYLAXIS - ALLERGY TOPICAL ALOE VERA: SEVERE ITCHING CANNOT TOLERATE ASA BASED PRODUCTS/ NSAIDS: HX STOMACH BLEED - CONTRAINDICATION SURGICAL HISTORY LAPAROSCOPY X2 CHRISTINE BTL 1981 TVH [address] SPENCER 2007 VAGINAL CUFF BX. IRMA CHANDLER,MARIO 03/07 CHOLECYSTECTOMY 06/09 ACDF-C4-T1 10/06 R BREAST [id number] 09/2010 ABOVE L CTR-DR EAST 10/27/14 L4-L5 FUSION/LAMINECTOMY 09/2013 NORMAL EGD/COLON/SB CAPSULE-R 06/2016 FUSION C5 C6 1998 HYSTERECTOMY 1988 BENIGN MOLE REMOVAL 2017 FAMILY HISTORY FATHER: , DM, LUNG CANCER, CAD, DX ALZHEIMER, DIAGNOSED WITH OTHER MALIGNANT NEOPLASM OF UNSPECIFIED SITE MOTHER: , COPD SIBLINGS: BROTHER HTN,1/2 BROTHER DM SON(S): HTN PATERNAL GRAND FATHER: , CANCER, COLON PATERNAL GRAND MOTHER: COLON CANCER LATER YEARS MATERNAL UNCLE: PROSTATE CANCER 70'S ,LEUKEMIA IN HIS 50'S MATERNAL AUNT: ALIVE, HYPERLIPIDEMIA, COLON CANCER IN HER 60'S 2 BROTHER(S) , 1 SISTER(S) - HEALTHY. 1 SON(S) , 1 DAUGHTER(S) . PGM, MGF C COLON CANCER\\\\NMOM-GRAVES DISEASE\\\\NSON-SEIZURES, BRADYCARDIA-PACEMAKER, AFIB. SOCIAL HISTORY GENERAL: TOBACCO USE ARE YOU A:CURRENT SMOKER ARE YOU INTERESTED IN QUITTING?THINKING ABOUT QUITTING COUNSELED THE PATIENT ON SMOKING CESSATION, EDUCATION [id number]/22/2020 HOW MANY CIGARETTES A DAY DO YOU SMOKE?5 OR LESS HOW SOON AFTER YOU WAKE UP DO YOU SMOKE YOUR FIRST CIGARETTE?AFTER 60 MIN HOW OFTEN DO YOU SMOKE CIGARETTES?EVERY DAY PATIENT COUNSELED ON THE DANGERS OF TOBACCO USE AND URGED TO QUIT:10/01/2019 SMOKING CESSATION INFORMATION GIVEN03/25/2019 LATEX QUESTIONNAIRE LATEX ALLERGY : HAVE YOU EVER DEVELOPED ANY TYPE OF REACTION AFTER HANDLING LATEX PRODUCTS SUCH RUBBER GLOVES, CONDOMS, DIAPHRAGMS, BALLOONS, SOCKS, OR UNDERWEAR?NO LATEX ALLERGY : HAVE YOU EVER DEVELOPED ANY TYPE OF REACTION DURING OR AFTER DENTAL APPOINTMENT, VAGINAL/RECTAL EXAMINATION, SURGICAL PROCEDURE, OR ANY OTHER EXPOSURE?NO LATEX RISK : HAVE YOU EVER HAD ANY DIFFICULTY BREATHING OR HIVES AFTER EATING OR HANDLING ANY FRUITS, OR VEGETABLES; SUCH KIWI, BANANAS, STONE FRUITS, OR CHESTNUTSNO LATEX RISK : DO YOU HAVE A PREVIOUS PERSONAL HISTORY OF MORE THAN NINE SURGERIES, SPINA BIFIDA, OR REPEATED CATHERIZATIONS? NO LATEX RISK : ARE YOU FREQUENTLY EXPOSED TO LATEX PRODUCTS IN YOUR OCCUPATION?NO DATE ASKED : 10/01/2019 ALCOHOL SCREENING DID YOU HAVE A DRINK CONTAINING ALCOHOL IN THE PAST YEAR?YES HOW OFTEN DID YOU HAVE A DRINK CONTAINING ALCOHOL IN THE PAST YEAR?MONTHLY OR LESS (1 POINT) POINTS1 INTERPRETATIONNEGATIVE RECREATIONAL DRUG USE DRUG USE?NO CAFFEINE CAFFEINE USE?YES 3 CUPS COFFEE DAILY SEXUAL HX HAD SEX IN THE LAST 12 MONTHS (VAGINAL, ORAL, OR ANAL)?NO HAVE YOU EVER HAD AN STD?NO HIV / HEP-C SCREENING HIV TEST OFFERED TO PATIENT:YES DATE OFFERED:06/28/2017 TEST ACCEPTED:NO HEP-C TEST OFFERED TO PATIENT:YES DATE OFFERED:06/28/2017 REASON:PATIENT DECLINED TEST ACCEPTED:NO REASON:PATIENT DECLINED LUTHERAN [id number] NONE NO [employer] BELIEFS THAT WOULD IMPACT HEALTH CARE. LANGUAGE LANGUAGES SPOKEN:ISRAELI EDUCATION LEVEL OF EDUCATION:HIGH SCHOOL GED LEARNING BARRIERS / SPECIAL NEEDS CHANGE FROM LAST VISIT?NO BARRIERS TO LEARNING?NO HEARING IMPAIRED?NO TNITUS VISION IMPAIRED?YES COGNITIVELY IMPAIRED?NO :CORRECTIVE LENSES READINESS TO LEARN?YES LEARNING PREFERENCES?NO LEARNING CAPABILITIES PRESENT?YES EMOTIONAL BARRIERS?NO SPECIAL DEVICES?NO COUNTY AGENT NEEDED?NO DOMESTIC VIOLENCE DO YOU FEEL SAFE IN YOUR ENVIRONMENT?YES OCCUPATION: DISABLED. DIET: AVOIDS GREASY, FRIED FOODS, DAIRY.TRIES TO EAT SMALLER PORTIONS. EXERCISE: LOWER BACK EXERCISES, WALKS TOLERATED. MARITAL STATUS: .. OTHERS AT HOME: DAUGHTER, SON-IN LAW. NEW PATIENT PAIN DIARY TODAY'S VISITNOTES 08/20/2019 PATIENT DESCRIBES PAIN :HAVE IT ALL THE TIME, SORE FROM 0-10, WHAT LEVEL IS YOUR PAIN TODAY?7 PAIN CLINIC PFS, CLERGY, PUBLIC HEALTH REFERRALS PFS REFERRAL NEEDED?NO CLERGY REFERRAL NEEDED?NO PUBLIC HEALTH REFERRAL NEEDED?NO WAS THE PROVIDER NOTIFIED OF ANY PERTINENT INFO? N/A HAS THE PATIENT BEEN EDUCATED REGARDING HIS/HER PLAN OF CARE?YES HAS THE PATIENT BEEN EDUCATED REGARDING PAIN, THE RISK FOR PAIN, THE IMPORTANCE OF EFFECTIVE PAIN MANAGEMENT, AND THE PAIN ASSESSMENT PROCESS?YES ADVANCE DIRECTIVE ADVANCE DIRECTIVE DISCUSSED WITH PATIENT:YES HEALTH CARE PROXY RAH ROSARIO [phone] HOSPITALIZATION/MAJOR DIAGNOSTIC PROCEDURE SURGICAL RELATED REVIEW OF SYSTEMS CONSTITUTIONAL: ANY RECENT FEVER OR ILLNESS NO . CHILLS NO . GASTROENTEROLOGY: BOWEL INCONTINENCE NO . ANY NEW CHANGE IN BOWEL CONTROL? NO . ABDOMINAL PAIN NO . CONSTIPATION NO . GENITOURINARY: ANY NEW CHANGE IN BLADDER CONTROL? NO . IS THERE A CHANCE YOU COULD BE ? NO . URINARY INCONTINENCE NO . CARDIOLOGY: CHEST PRESSURE NO . CHEST PAIN NO . RESPIRATORY: COUGH NO . SHORTNESS OF BREATH NO . VITAL SIGNS WT 131.0 LBS, HT 64 IN, BMI 22.48 INDEX, BP 156/69 MM HG, HR 103 /MIN, RR 18 /MIN, TEMP 98.1 F, OXYGEN SAT % 98%, SAFE IN ENV? (Y/N) YES, NA INITIALS AW 1037, REVIEWED BY: SANYA. EXAMINATION GENERAL EXAMINATION: GENERAL AWAKE,ALERT ,PLEASANT . PSYCH AFFECT NORMAL . LUNGS: LUNG LINDSEY ARE CLEAR TO AUSCULTATION BILATERALLY. GOOD MOVEMENT OF AIR . HEART: S1, S2 IN A REGULAR RATE AND RHYTHM. NO SIGNIFICANT MURMURS, RUBS OR GALLOPS NOTED . MUSCULOSKELETAL: MUSCLE STRENGTH TESTING 5/5 BILATERAL LOWER EXTREMITIES. LUMBAR: PALPATION: + FOR PAIN OVER L/S SPINE. + FOR PAIN OVER L/S PARASPINALS WELL-HEALED SURGICAL SCAR L/S AXIS. DIAGNOSTIC TESTS REVIEWEDMRI L/S SPINE . 03/2017. ASSESSMENTS SPINAL STENOSIS, LUMBAR REGION WITH NEUROGENIC CLAUDICATION - M48.062 (PRIMARY) LUMBAR POST-LAMINECTOMY SYNDROME - M96.1 TREATMENT SPINAL STENOSIS, LUMBAR REGION WITH NEUROGENIC CLAUDICATION NOTES: REVIEWED HISTORY WITH DR. CRAFT. HE IS RECOMMENDING A TRIAL OF L5-S1 CAUDAL EPIDURAL STEROID INJECTION WITH CATHETER. STATES WE COULD CONSIDER DOING TRANSFORAMINAL STEROID BLOCK IF THIS IS INEFFECTIVE. PATIENT IS ADVISED TO STOP HER ANTI-RHEUMATOID MEDICATIONS 2 WEEKS PREPROCEDURE AND NOT TO RESTART UNTIL 2 WEEKS POST PROCEDURE. PATIENT VOICES UNDERSTANDING. . PREVENTIVE MEDICINE PAIN CLINIC TEACHING: PROCEDURE TEACHING CAUDAL EPIDURAL STEROID INJECTION PROCEDURE INFORMATION PRINTED AND REVIEWED WITH PATIENT. PATIENT VERBALIZES UNDERSTANDING OF PROCEDURE AND OF PRE PROCEDURE INSTRUCTIONS REVIEWED. BRY DEVINE 10/01/2019 12:38:13 PM > . DISPOSITION & COMMUNICATION FOLLOW UP POST (REASON: L5-S1 CAUDAL EPIDURAL STEROID INJECTION WITH CATHETER) ELECTRONICALLY SIGNED BY CARIDAD HENLEY ON 10/02/2019 AT 03:33 PM EDT DISCLAIMER : THIS IS A VISIT SUMMARY EXTRACTED FROM THE [employer] CHART. IT IS NOT A COPY OF THE [employer] PROGRESS NOTE. ZINA
== END ==
LOC: M PAIN 11:00
PROVIDERS: ATTEND Nurse Practitioner Family
DX: M48.062 Spinal stenosis, lumbar region with neurogenic claudication (principal); M96.1 Postlaminectomy syndrome, not elsewhere classified

== ENCOUNTER → 2019-10-03 | Outpatient (CLI) | payer MEDICARE ==
--- NOTE | 2019-10-03 11:15 | REPMRS ---
Patient History The patient states she had a clinical breast exam in September 2019.Family history of colorectal cancer in paternal grandfather, colorectal cancer in maternal grandmother, colorectal cancer at age 50 or over in maternal aunt, pancreatic cancer at age 50 or over in maternal uncle. Benign stereotatic breast biopsy of the right breast, October 10, 2010. Taking unspecified hormones for 9 years. 3D TOMOSYNTHESIS WAS PERFORMED. The [facility] lifetime risk for breast cancer is 6.9%. ABELINO Peterson. Digital Woman Screen Mammo: October 03, 2019 - Exam #: [id number] Bilateral CC and MLO view(s) were taken. Technologist: Mayela Rausch, Technologist Prior study comparison: October 02, 2018, bilateral digital woman screen mammo performed at [facility]. October 01, 2017, digital woman screen mammo performed at [facility]. FINDINGS: The breast tissue is heterogeneously dense. This may lower the sensitivity of mammography. There has been no change in the appearance of the mammogram from the prior studies. There is a moderate amount of residual fibroglandular tissue which is fairly symmetric. There is no interval development of dominant mass, areas of architectural distortion, or clustered microcalcification typical of malignancy. Assessment: BI-RADS/ACR category 1 mammogram. Negative Mammogram. Recommendation Routine screening mammogram in 1 year (for women over age 40). This mammogram was interpreted with the aid of an FDA-approved computer-aided dectection system. Electronically Signed By: Harsih Kennedy MD 10/03/19 [id number]
== END ==
LOC: M WHC 10:03
PROVIDERS: ATTEND Family Medicine
DX: Z12.31 Encounter for screening mammogram for malignant neoplasm of breast (principal); Z86.018 Personal history of other benign neoplasm; Z92.29 Personal history of other drug therapy
CPT/HCPCS: 77063; 77067; G0463

== ENCOUNTER → 2019-10-13 | Outpatient (CLI) | payer MEDICARE | LOC: M LABSMTC 10:21 | PROVIDERS: ATTEND Anesthesiology | DX: Z03.818 Encounter for observation for suspected exposure to other biological agents ruled out (principal) | CPT/HCPCS: C9803; U0003 ==

== ENCOUNTER → 2019-10-16 | Outpatient (CLI) | payer MEDICARE ==
[~2019-10-16] MED LIST changes: +ISOVUE-M 300 61% 15ML VIAL As Ordered ONE; +LIDOCAINE 1% SDV 30ML VIAL As Ordered ONE; +diazePAM 5MG TABLET As Ordered ONE; +diphenhydrAMINE 25MG CAP As Ordered ONE; +methylPREDNISolone SUSP 40MG/ML 1ML VIAL (DEPO MEDROL) As Ordered ONE; +oxyCODONE 5MG TAB As Ordered ONE
--- NOTE | 2019-10-16 15:07 | REP ---
Partial lumbar spine series: Four views . History: Injection procedure for pain. 29 seconds of fluoroscopy time is reported. Findings: A sequence of four fluoroscopically obtained last image hold procedural spot radiographs of the lumbar spine document needle position and contrast injection associated with injection procedure. Electronically Signed by Georgi Rudolph MD 10/16/2019 02:59 P
--- NOTE | 2019-10-21 01:49 | ECWPNPC ---
PATIENT NAME: LOGAN CRAVEN : 1960 GENDER: FEMALE VISIT DATE: 10/16/2019 DISCHARGE DATE: 10/16/19 1344 VISIT LOCKED DATE TIME: PHYSICIAN: KENDRA CRAFT MD PHYSICIAN PAGER NO: [phone] RESOURCE: KENDRA CRAFT MD REASON FOR APPOINTMENT 1. L5-S1 CAUDAL EPIDURAL STEROID INJECTION WITH CATHETER. PAT DONE HISTORY OF PRESENT ILLNESS GENERAL: -. FALL RISK SCREENING: SCREENING :NO FALLS REPORTED IN THE LAST YEAR PAIN SCREENING: PATIENT HAS A COMPLAINT OF ACUTE OR CHRONIC PAIN :YES 10/15/19 INTENSITY OF PAIN (SCALE OF 1 TO 10):7 WHAT DOES YOUR PAIN FEEL LIKE:CONTINOUS, SHARP PAIN IS INCREASED BY: ACTIVITY PAIN IS DECREASED BY: LAYING DOWN NURSING NOTE: -. PAIN CENTER INTAKE QUESTIONS: DO YOU HAVE A HISTORY OF MRSA? :NO DO YOU TAKE A BLOOD THINNERS? :NO DO YOU HAVE ANY BLEEDING DISORDERS? :NO ANY NEW NUMBNESS OR WEAKNESS IN YOUR LEGS OR ARMS? :YES RIGHT LEG WEAKNESS ANY PACEMAKER,DEFIBRILLATOR, OR DORSAL COLUMN STIMULATOR? :NO DO YOU HAVE ANY RASHES OR OPEN SORES? :NO ARE YOU ALLERGIC TO IV DYE? :NO ARE YOU DIABETIC? :NO ANY NEW PROBLEMS WITH YOUR MEDICATIONS? :NO HAVE YOU RECEIVED A VACCINE IN THE PAST 30 DAYS? :NO DO YOU PLAN TO RECEIVE A VACCINE IN THE NEXT 21 DAYS? :NO DO YOU TAKE ANY IMMUNOSUPPRESSIVE MEDICATIONS? :YES RINVOQ, LIFLUTIMIDE BOTH 2 WEEKS AGO ANY HISTORY OF SEIZURES? :NO ANY HISTORY OF CARDIAC ISSUES OR EVENTS? :NO DO YOU HAVE SLEEP APNEA? : NO. ANY RECENT HEAD INJURY? :NO DO YOU HAVE ANY NEW INFECTIONS? :NO IS THERE A CHANCE YOU COULD BE ? :NO ARE YOU BREAST FEEDING? :NO WHEN DID YOU LAST EAT? : -LAST NIGHT WHEN DID YOU LAST DRINK? : -THIS MORNING 0930 WHAT DID YOU LAST DRINK? : - NAME OF PERSON DRIVING YOU HOME? : -BOYFRIEND, KATIE DO YOU HAVE ANY OTHER QUESTIONS OR CONCERNS? : - CURRENT MEDICATIONS TAKING VITAMIN D 2000 UNIT CAPSULE 1 TABLET ORALLY ONCE A DAY, NOTES: 10-15-19 1500 TAKING CANE . MISCELLANEOUS QUAD CANE _ QD R27 TAKING CALCIUM 600 + D 600-400 MG-UNIT TABLET 1 TABLET ORALLY ONCE A DAY, NOTES: 6-17-20 1500 TAKING ELMIRON 100 MG CAPSULE 1 CAPSULE ON AN EMPTY STOMACH 1 TABLET THREE A DAY TAKING CARAFATE 1 GM TABLET 1 TABLET ON AN EMPTY STOMACH ORALLY AC TID, NOTES: 10-17-19699 TAKING COLESTIPOL HCL 1 GM TABLET 1 TAB ORALLY ONCE A DAY, NOTES: 10-16-19699 TAKING ESOMEPRAZOLE MAGNESIUM 40 MG CAPSULE DELAYED RELEASE 1 CAPSULE ORALLY AC BID, NOTES: 10-16-19699 TAKING LEFLUNOMIDE 20 MG TABLET 1 TABLET ORALLY ONCE A DAY, NOTES: 2 WEEKS AGO TAKING CYANOCOBALAMIN 500 MCG TABLET 1 TABLET ORALLY 1 EVERY 5 DAYS, NOTES: 10-15-191499 TAKING ATORVASTATIN CALCIUM 20 MG TABLET 1 TABLET ORALLY ONCE A DAY, NOTES: 10-16-19 09 TAKING RINVOQ 15 MG TABLET EXTENDED RELEASE 24 HOUR 1 TABLET ORALLY ONCE A DAY, NOTES: 2 WEEKS AGO TAKING CARISOPRODOL 350 MG TABLET 1 TABLET NEEDED ORALLY TID PRN, MDD 3, NOTES: 10-16-19 930 TAKING HYDROCODONE-ACETAMINOPHEN 5-325 MG TABLET 1 TABLET NEEDED ORALLY TID PRN MDD = 3, NOTES: 10-16030 NOT-TAKING PREMARIN 0.625 MG/GM CREAM 1 GRAM VAGINAL WEEKLY NOT-TAKING DERMOTIC 0.01 % OIL 5 DROPS INTO AFFECTED EAR OTIC TWICE A DAY X 5D C FLARES NOT-TAKING ORPHENADRINE CITRATE ER 100 MG TABLET EXTENDED RELEASE 12 HOUR 1 TABLET ORALLY TWICE A DAY NOT-TAKING SARILUMAB 150 MG/1.14ML SOLUTION PREFILLED SYRINGE 1.14 ML SUBCUTANEOUS MEDICATION LIST REVIEWED AND RECONCILED WITH THE PATIENT PAST MEDICAL HISTORY RA/OSTEOARTHRITIS/FIBROMYALGIA NICOTINE ADDICTION-08/2011 FEV1 2.5L (101%)/RATIO 97%-1 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 GERD/DYSPEPSIA-06/2016 NORMAL EGD/COLON/SB CAPSULE-R HYPERLIPIDEMIA 2B ENDOMETRIOSIS 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 SPENCER 2008 FOLLOWS WITH WOMAN TO WOMAN HISTORY OF TUBULAR ADENOMA-NORMAL COLONOSCOPY APRIL 2009 NORMAL COLONOSCOPY C - RANDOM BIOPSIES-[place] COLONOSCOPY 07/18/16 REINDL CERVICAL DJD STATUS POST MULTILEVEL FUSION-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 BARAJAS, 01/2014 FILLED OUT LTD PAPERWORK FOR GUARDIAN-PATIENT DEFERRED WCE INSOMNIA, COOMORBID ALLERGIES METHOTREXATE (ANTI-RHEUMATIC): MIGRANES - SIDE EFFECTS CYMBALTA: RACING PLUSE, SHAKES - ALLERGY WELLBUTRIN: PALPITATIONS, SEVERE - ALLERGY SULFA (FOR ALLERGY USE ONLY): NAUSEA/VOMITING - ALLERGY LYRICA: PALPITATIONS - ALLERGY CELEXA: PALPITATIONS - SIDE EFFECTS ORENCIA: ANAPHYLAXIS - ALLERGY TOPICAL ALOE VERA: SEVERE ITCHING CANNOT TOLERATE ASA BASED PRODUCTS/ NSAIDS: HX STOMACH BLEED - CONTRAINDICATION SURGICAL HISTORY LAPAROSCOPY X2 CHRITSINE BTL 1981 TVH [address] SPENCER 2008 VAGINAL CUFF BX. IRMA CHANDLER NP 03/07 CHOLECYSTECTOMY 06/09 ACDF-C4-T1 10/06 R BREAST [id number] 09/2010 ABOVE L CTR-DR EAST 10/27/14 L4-L5 FUSION/LAMINECTOMY 09/2013 NORMAL EGD/COLON/SB CAPSULE-R 06/2016 FUSION C5 C6 1998 HYSTERECTOMY 1988 BENIGN MOLE REMOVAL 2017 FAMILY HISTORY FATHER: , DM, LUNG CANCER, CAD, DX ALZHEIMER, DIAGNOSED WITH OTHER MALIGNANT NEOPLASM OF UNSPECIFIED SITE MOTHER: , COPD SIBLINGS: BROTHER HTN,1/2 BROTHER DM SON(S): HTN PATERNAL GRAND FATHER: , CANCER, COLON PATERNAL GRAND MOTHER: COLON CANCER LATER YEARS MATERNAL UNCLE: PROSTATE CANCER 70'S ,LEUKEMIA IN HIS 50'S MATERNAL AUNT: ALIVE, HYPERLIPIDEMIA, COLON CANCER IN HER 60'S 2 BROTHER(S) , 1 SISTER(S) - HEALTHY. 1 SON(S) , 1 DAUGHTER(S) . PGM, MGF C COLON CANCER\\\\NMOM-GRAVES DISEASE\\\\NSON-SEIZURES, BRADYCARDIA-PACEMAKER, AFIB. SOCIAL HISTORY GENERAL: TOBACCO USE ARE YOU A:CURRENT SMOKER ARE YOU INTERESTED IN QUITTING?THINKING ABOUT QUITTING COUNSELED THE PATIENT ON SMOKING CESSATION, EDUCATION [id number]/17/2020 HOW MANY CIGARETTES A DAY DO YOU SMOKE?5 OR LESS HOW SOON AFTER YOU WAKE UP DO YOU SMOKE YOUR FIRST CIGARETTE?AFTER 60 MIN HOW OFTEN DO YOU SMOKE CIGARETTES?EVERY DAY LATEX QUESTIONNAIRE LATEX ALLERGY : HAVE YOU EVER DEVELOPED ANY TYPE OF REACTION AFTER HANDLING LATEX PRODUCTS SUCH RUBBER GLOVES, CONDOMS, DIAPHRAGMS, BALLOONS, SOCKS, OR UNDERWEAR?NO LATEX ALLERGY : HAVE YOU EVER DEVELOPED ANY TYPE OF REACTION DURING OR AFTER DENTAL APPOINTMENT, VAGINAL/RECTAL EXAMINATION, SURGICAL PROCEDURE, OR ANY OTHER EXPOSURE?NO DATE ASKED : 10/03/2019 LATEX RISK : HAVE YOU EVER HAD ANY DIFFICULTY BREATHING OR HIVES AFTER EATING OR HANDLING ANY FRUITS, OR VEGETABLES; SUCH KIWI, BANANAS, STONE FRUITS, OR CHESTNUTSNO LATEX RISK : DO YOU HAVE A PREVIOUS PERSONAL HISTORY OF MORE THAN NINE SURGERIES, SPINA BIFIDA, OR REPEATED CATHERIZATIONS? NO LATEX RISK : ARE YOU FREQUENTLY EXPOSED TO LATEX PRODUCTS IN YOUR OCCUPATION?NO ALCOHOL SCREENING DID YOU HAVE A DRINK CONTAINING ALCOHOL IN THE PAST YEAR?YES HOW OFTEN DID YOU HAVE A DRINK CONTAINING ALCOHOL IN THE PAST YEAR?MONTHLY OR LESS (1 POINT) POINTS1 INTERPRETATIONNEGATIVE RECREATIONAL DRUG USE DRUG USE?NO CAFFEINE CAFFEINE USE?YES 2-3 DAILY SEXUAL HX HAD SEX IN THE LAST 12 MONTHS (VAGINAL, ORAL, OR ANAL)?NO HAVE YOU EVER HAD AN STD?NO HIV / HEP-C SCREENING HIV TEST OFFERED TO PATIENT:YES DATE OFFERED:06/28/2017 TEST ACCEPTED:NO HEP-C TEST OFFERED TO PATIENT:YES DATE OFFERED:06/28/2017 REASON:PATIENT DECLINED TEST ACCEPTED:NO REASON:PATIENT DECLINED CONFUCIANISM [id number] NONE NO YARSANI BELIEFS THAT WOULD IMPACT HEALTH CARE. LANGUAGE LANGUAGES SPOKEN:GERMAN EDUCATION LEVEL OF EDUCATION:HIGH SCHOOL GED LEARNING BARRIERS / SPECIAL NEEDS CHANGE FROM LAST VISIT?NO BARRIERS TO LEARNING?NO HEARING IMPAIRED?NO TNITUS VISION IMPAIRED?YES COGNITIVELY IMPAIRED?NO :CORRECTIVE LENSES READINESS TO LEARN?YES LEARNING PREFERENCES?NO LEARNING CAPABILITIES PRESENT?YES EMOTIONAL BARRIERS?NO SPECIAL DEVICES?NO DRAW FRAME TENDER NEEDED?NO DOMESTIC VIOLENCE DO YOU FEEL SAFE IN YOUR ENVIRONMENT?YES OCCUPATION: DISABLED. DIET: AVOIDS GREASY, FRIED FOODS, DAIRY.TRIES TO EAT SMALLER PORTIONS. EXERCISE: LOWER BACK EXERCISES, WALKS TOLERATED. MARITAL STATUS: .. OTHERS AT HOME: DAUGHTER. NEW PATIENT PAIN DIARY TODAY'S VISITNOTES 08/20/2019 PATIENT DESCRIBES PAIN :HAVE IT ALL THE TIME, SORE FROM 0-10, WHAT LEVEL IS YOUR PAIN TODAY?7 PAIN CLINIC PFS, CLERGY, PUBLIC HEALTH REFERRALS PFS REFERRAL NEEDED?NO CLERGY REFERRAL NEEDED?NO PUBLIC HEALTH REFERRAL NEEDED?NO WAS THE PROVIDER NOTIFIED OF ANY PERTINENT INFO? N/A HAS THE PATIENT BEEN EDUCATED REGARDING HIS/HER PLAN OF CARE?YES HAS THE PATIENT BEEN EDUCATED REGARDING PAIN, THE RISK FOR PAIN, THE IMPORTANCE OF EFFECTIVE PAIN MANAGEMENT, AND THE PAIN ASSESSMENT PROCESS?YES ADVANCE DIRECTIVE ADVANCE DIRECTIVE DISCUSSED WITH PATIENT:YES HEALTH CARE PROXY RAH ROSARIO [phone] HOSPITALIZATION/MAJOR DIAGNOSTIC PROCEDURE SURGICAL RELATED VITAL SIGNS WT 130.2 LBS, HT 64 IN, BMI 22.35 INDEX, BP 133/61 MM HG, HR 84 /MIN, RR 16 /MIN, TEMP 97.8 F, OXYGEN SAT % 98%, NA INITIALS 12:05. EXAMINATION GENERAL EXAMINATION: THE PATIENT IS ALERT, ORIENTED TIMES THREE AND COOPERATIVE. HEART SHOWS REGULAR RHYTHM, NO MURMURS AND NO GALLOPS. LUNGS ARE CLEAR TO AUSCULTATION. 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 PROCEDURES PAIN NURSING RECORD PRE-PROCEDURE PRE-PROCEDURE ORAL MEDICATIONS BENADRYL 25 MG PO KGULLO 10 MG VALIUM PO TON RN 10 MG OXYCODONE PO TON RN ALL GIVEN AT 1228 PROCEDURE IN ROOM 1230, PHYSICIAN IN ROOM 1245, START 1255, FINISH 1312, STEROID DEPOMEDROL USED, O2 ROOME, ECG NORMAL SINUS, PATIENT SHIELDED YES, SAFETY STRAP YES, DRESSING TEGADERM LOC: 1. ALERT, ORIENTED RESP: 1. REGULAR, NO DYSPNEA COLOR: 1. PINK SKIN: 1. WARM, DRY POSITION: 1. PRONE VITALS: 1230 131/70, 76 18 93 % RA TON RN 1245 132/65, 75, 18 93%RN TON RN 1300 13,7/82, 83, 18 , 93% ON RA TON RN 1315 DISCHARGE: POST PAIN PT STATES A 0, DRESSING SITE DRY AND INTACT, TEACHING COMPLETED, PATIENT ACKNOWLEDGES UNDERSTANDING WENT OVER ENTIRE DISCHARGE WITH THE PT INCLUDING THE DIARY PT VERBALIZES UNDERSTANDING, PATIENT DISCHARGED AT 1345 PRE PROCEDURE DIAGNOSIS LUMBAR POST LAMINECTOMY PAIN SYNDROME, LUMBAR DISC DISORDER WITH RADICULOPATHY POST PROCEDURE DIAGNOSIS LUMBAR POST LAMINECTOMY PAIN SYNDROME, LUMBAR DISC DISORDER WITH RADICULOPATHY PROCEDURE LUMBAR EPIDURAL STEROID INJECTION UNDER FLUOROSCOPIC GUIDANCE SURGEON DR. KENDRA CRAFT PARAMEDIC NONE ANESTHESIA LOCAL PRE PROCEDURE NOTE THE PATIENT HAS A HISTORY OF CHRONIC LOW BACK PAIN. I EVALUATED THE PATIENT AND REVIEWED THE CHART. I WENT OVER THE RISKS, ALTERNATIVES, AND BENEFITS ASSOCIATED WITH THIS PROCEDURE. I DISCUSSED THAT THE USE OF STEROIDS MAY CONTRIBUTE TO IMMUNOSUPPRESSION OF THE PATIENT'S BODY AGAINST INFECTIONS SUCH COVID-19. THE PATIENT IS AWARE OF THE POTENTIAL COMPLICATIONS ASSOCIATED WITH THIS VIRUS, INCLUDING, BUT NOT LIMITED TO, . I DISCUSSED THE USE OF DEXAMETHASONE INSTEAD OF DEPO-MEDROL; HOWEVER, THE PATIENT WOULD LIKE TO MOVE FORWARD WITH DEPO-MEDROL. THE PATIENT WOULD LIKE TO PROCEED AND GIVE CONSENT TO PERFORMED THE PROCEDURE. THE PATIENT DENIES UNEXPLAINABLE WEIGHT LOSS, FEVER, CHILLS, OR NEW CHANGES IN URINARY OR BOWEL CONTROL. THE PATIENT IS COVID-19 NEGATIVE DESCRIPTION OF PROCEDURE THE PATIENT WAS BROUGHT TO THE PROCEDURE ROOM AND PLACED IN THE PRONE POSITION. THE LUMBOSACRAL AREA WAS CLEANED WITH BETADINE SOLUTION AND DRAPED ASEPTICALLY. THE PROCEDURE WAS DONE UNDER STERILE CONDITIONS. I CHECKED LATERALITY AND THE LEVEL WHERE THE PROCEDURE WAS GOING TO BE PERFORMED WITH THE PATIENT AND THE SUPPORTING STAFF AT THE MOMENT OF THE TIME OUT IN THE PROCEDURE ROOM. UNDER FLUOROSCOPIC GUIDANCE, THE TARGET POINT WAS SELECTED AT THE INTERLAMINAR LEVEL OF L5-S1. LIDOCAINE WAS USED TO NUMB THE SKIN AND THE SUBCUTANEOUS TISSUE BELOW IT. EPIMED EPIDURAL TUOHY NEEDLE, 16-GAUGE, WAS ADVANCED UNDER FLUOROSCOPIC GUIDANCE AND FOLLOWING PATIENT FEEDBACK UNTIL THE EPIDURAL SPACE WAS REACHED 7 CM DEEP INTO THE SKIN BY THE LOSS OF RESISTANCE TECHNIQUE. A 19-GAUGE EPIMED CATHETER WAS ADVANCED THROUGH THE NEEDLE AND THEN MOVED TOWARDS THE INTERLAMINAR LEVEL OF L4-L5 UNDER FLUOROSCOPIC GUIDANCE AND FOLLOWING THE PATIENT'S FEEDBACK. ISOVUE-M DYE 30%, 0.25 ML, WAS INJECTED SHOWING ADEQUATE SPREAD OF THE DYE. THEN, A SOLUTION OF 3 ML OF NORMAL SALINE WITH DEPO-MEDROL 80 MG WAS INJECTED SLOWLY FOLLOWING PATIENT FEEDBACK. THERE WAS NO EVIDENCE OF BLOOD, PARESTHESIA OR CEREBROSPINAL FLUID DURING THE PROCEDURE. THE PATIENT WAS SENT TO THE RECOVERY ROOM. THE PATIENT WAS MOVING THE EXTREMITIES AND DOING WELL. THERE WAS NO COMPLICATION DURING THE PROCEDURE. EBL LESS THAN 5 ML. FLUOROSCOPY TIME WAS 29 SECONDS POST PROCEDURE NOTE THE PATIENT WILL BE SEEN IN A FOLLOW UP IN THE NEXT FEW WEEKS. I AM LOOKING FOR LONG LASTING RELIEF FOR THE PATIENT WITH THIS INTERVENTION. INSTRUCTIONS WERE GIVEN, QUESTIONS WERE ANSWERED, AND THE PATIENT EXPRESSED UNDERSTANDING AND AGREES WITH THE PLAN. THE PATIENT IS AWARE TO STAY HOME FOR THE NEXT WEEK, IF POSSIBLE, DUE TO COVID-19. I, CHINYERE AMARO, DOCUMENTED THE ABOVE INFORMATION ACTING A SCRIBE FOR DR. CRAFT. I HAVE REVIEWED THE ABOVE DOCUMENT, WRITTEN BY CHINYERE AMARO, CYTOTECHNOLOGIST, AND I VERIFY THAT IT IS ACCURATE PROCEDURE CODES 94812 LUMBAR/SACRAL W/ IMAGING DISPOSITION & COMMUNICATION FOLLOW UP F/UP WITH ELECTRICAL INTEGRATOR (REASON: POST CAUDAL EPIDURAL) ELECTRONICALLY SIGNED BY KENDRA CRAFT MD, MD ON 10/20/2019 AT 12:34 PM EDT DISCLAIMER : THIS IS A VISIT SUMMARY EXTRACTED FROM THE [employer] CHART. IT IS NOT A COPY OF THE [employer] PROGRESS NOTE. ZINA
== END ==
LOC: M PAIN 12:15
PROVIDERS: ATTEND Anesthesiology
DX: M96.1 Postlaminectomy syndrome, not elsewhere classified (principal); M51.17 Intervertebral disc disorders with radiculopathy, lumbosacral region
CPT/HCPCS: 62323; J1030; Q9967

== ENCOUNTER → 2019-10-30 | Outpatient (CLI) | payer MEDICARE ==
[~2019-10-30] MED LIST changes: -ISOVUE-M 300 61% 15ML VIAL As Ordered ONE; -LIDOCAINE 1% SDV 30ML VIAL As Ordered ONE; -diazePAM 5MG TABLET As Ordered ONE; -diphenhydrAMINE 25MG CAP As Ordered ONE; -methylPREDNISolone SUSP 40MG/ML 1ML VIAL (DEPO MEDROL) As Ordered ONE; -oxyCODONE 5MG TAB As Ordered ONE
--- NOTE | 2019-11-13 04:02 | ECWPNPC ---
PATIENT NAME: LOGAN CRAVEN : 1960 GENDER: FEMALE VISIT DATE: 10/30/2019 DISCHARGE DATE: 10/30/19 1128 VISIT LOCKED DATE TIME: PHYSICIAN: ANDREA ELIAS PHYSICIAN PAGER NO: [phone] RESOURCE: ANDREA ELIAS REASON FOR APPOINTMENT 1. POST L5-S1 CAUDAL EPIDURAL STEROID INJECTION WITH CATHETER HISTORY OF PRESENT ILLNESS GENERAL: HERE FOR POST PROCEDURE FOLLOW-UP. HAD L5-S1 CAUDAL EPIDURAL STEROID INJECTION WITH CATHETER ON 10/16/2019. REPORTING GREATER THAN 80% REDUCTION IN PAIN POST PROCEDURE THAT CONTINUES TODAY. OVERALL VERY HAPPY WITH RESULTS. REPORTING IMPROVED ACTIVITY TOLERANCE. STATES SHE HAS NOT NEEDED TO TAKE PAIN MEDICATION SINCE PROCEDURE. RATING PAIN LEVEL A 2/10 VAS. -. FALL RISK SCREENING: SCREENING :NO FALLS REPORTED IN THE LAST YEAR PAIN SCREENING: PATIENT HAS A COMPLAINT OF ACUTE OR CHRONIC PAIN :YES 10/30/19 INTENSITY OF PAIN (SCALE OF 1 TO 10):2 WHAT DOES YOUR PAIN FEEL LIKE:CONTINOUS PAIN PAIN IS INCREASED BY: STANDING WALKING PAIN IS DECREASED BY: REST NURSING NOTE: -. PAIN CENTER INTAKE QUESTIONS: DO YOU HAVE A HISTORY OF MRSA? :NO DO YOU TAKE A BLOOD THINNERS? :NO DO YOU HAVE ANY BLEEDING DISORDERS? :NO ANY NEW NUMBNESS OR WEAKNESS IN YOUR LEGS OR ARMS? :YES NUMBNESS IN LEFT ARM ANY PACEMAKER,DEFIBRILLATOR, OR DORSAL COLUMN STIMULATOR? :NO DO YOU HAVE ANY RASHES OR OPEN SORES? :NO ARE YOU ALLERGIC TO IV DYE? :NO ARE YOU DIABETIC? :NO ANY NEW PROBLEMS WITH YOUR MEDICATIONS? :NO HAVE YOU RECEIVED A VACCINE IN THE PAST 30 DAYS? :NO DO YOU PLAN TO RECEIVE A VACCINE IN THE NEXT 21 DAYS? :NO DO YOU NEED ANY PRESCRIPTION? :NO DO YOU TAKE ANY IMMUNOSUPPRESSIVE MEDICATIONS? :YES RINVOQ, LEFLUNOMIDE IS THERE A CHANCE YOU COULD BE ? :NO ARE YOU BREAST FEEDING? :NO CURRENT MEDICATIONS TAKING VITAMIN D 2000 UNIT CAPSULE 1 TABLET ORALLY ONCE A DAY TAKING CANE . MISCELLANEOUS QUAD CANE _ QD R27 TAKING CALCIUM 600 + D 600-400 MG-UNIT TABLET 1 TABLET ORALLY ONCE A DAY TAKING ELMIRON 100 MG CAPSULE 1 CAPSULE ON AN EMPTY STOMACH 1 TABLET THREE A DAY TAKING CARAFATE 1 GM TABLET 1 TABLET ON AN EMPTY STOMACH ORALLY AC TID TAKING COLESTIPOL HCL 1 GM TABLET 1 TAB ORALLY ONCE A DAY TAKING ESOMEPRAZOLE MAGNESIUM 40 MG CAPSULE DELAYED RELEASE 1 CAPSULE ORALLY AC BID TAKING LEFLUNOMIDE 20 MG TABLET 1 TABLET ORALLY ONCE A DAY TAKING CYANOCOBALAMIN 500 MCG TABLET 1 TABLET ORALLY 1 EVERY 5 DAYS TAKING ATORVASTATIN CALCIUM 20 MG TABLET 1 TABLET ORALLY ONCE A DAY TAKING RINVOQ 15 MG TABLET EXTENDED RELEASE 24 HOUR 1 TABLET ORALLY ONCE A DAY TAKING CARISOPRODOL 350 MG TABLET 1 TABLET NEEDED ORALLY TID PRN, MDD 3 TAKING HYDROCODONE-ACETAMINOPHEN 5-325 MG TABLET 1 TABLET NEEDED ORALLY TID PRN MDD = 3 NOT-TAKING PREMARIN 0.625 MG/GM CREAM 1 GRAM VAGINAL WEEKLY NOT-TAKING DERMOTIC 0.01 % OIL 5 DROPS INTO AFFECTED EAR OTIC TWICE A DAY X 5D C FLARES NOT-TAKING ORPHENADRINE CITRATE ER 100 MG TABLET EXTENDED RELEASE 12 HOUR 1 TABLET ORALLY TWICE A DAY NOT-TAKING SARILUMAB 150 MG/1.14ML SOLUTION PREFILLED SYRINGE 1.14 ML SUBCUTANEOUS MEDICATION LIST REVIEWED AND RECONCILED WITH THE PATIENT PAST MEDICAL HISTORY RA/OSTEOARTHRITIS/FIBROMYALGIA NICOTINE ADDICTION-08/2011 FEV1 2.5L (101%)/RATIO 97%-1 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 GERD/DYSPEPSIA-06/2016 NORMAL EGD/COLON/SB CAPSULE-R HYPERLIPIDEMIA 2B ENDOMETRIOSIS 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 SPENCER 2008 FOLLOWS WITH WOMAN TO WOMAN HISTORY OF TUBULAR ADENOMA-NORMAL COLONOSCOPY APRIL 2009 NORMAL COLONOSCOPY C - RANDOM BIOPSIES-[place] COLONOSCOPY 07/18/16 REINDL 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 BARAJAS, 01/2014 FILLED OUT LTD PAPERWORK FOR GUARDIAN-PATIENT DEFERRED WCE INSOMNIA, COOMORBID ALLERGIES METHOTREXATE (ANTI-RHEUMATIC): MIGRANES - SIDE EFFECTS CYMBALTA: RACING PLUSE, SHAKES - ALLERGY WELLBUTRIN: PALPITATIONS, SEVERE - ALLERGY SULFA (FOR ALLERGY USE ONLY): NAUSEA/VOMITING - ALLERGY LYRICA: PALPITATIONS - ALLERGY CELEXA: PALPITATIONS - SIDE EFFECTS ORENCIA: ANAPHYLAXIS - ALLERGY TOPICAL ALOE VERA: SEVERE ITCHING CANNOT TOLERATE ASA BASED PRODUCTS/ NSAIDS: HX STOMACH BLEED - CONTRAINDICATION SURGICAL HISTORY LAPAROSCOPY X2 CHRISTINE BTL 1981 TVH [address] SPENCER 2008 VAGINAL CUFF BX. IRMA CHANDLER NP 03/07 CHOLECYSTECTOMY 06/09 ACDF-C4-T1 10/06 R BREAST [id number] 09/2010 ABOVE L CTR- FISH 10/27/14 L4-L5 FUSION/LAMINECTOMY 09/2013 NORMAL EGD/COLON/SB CAPSULE-R 06/2016 FUSION C5 C6 1998 HYSTERECTOMY 1988 BENIGN MOLE REMOVAL 2018 FAMILY HISTORY FATHER: , DM, LUNG CANCER, CAD, DX ALZHEIMER, DIAGNOSED WITH OTHER MALIGNANT NEOPLASM OF UNSPECIFIED SITE MOTHER: , COPD SIBLINGS: BROTHER HTN,1/2 BROTHER DM SON(S): HTN PATERNAL GRAND FATHER: , CANCER, COLON PATERNAL GRAND MOTHER: COLON CANCER LATER YEARS MATERNAL UNCLE: PROSTATE CANCER 70'S ,LEUKEMIA IN HIS 50'S MATERNAL AUNT: ALIVE, HYPERLIPIDEMIA, COLON CANCER IN HER 60'S 2 BROTHER(S) , 1 SISTER(S) - HEALTHY. 1 SON(S) , 1 DAUGHTER(S) . PGM, MGF C COLON CANCER\\\\NMOM-GRAVES DISEASE\\\\NSON-SEIZURES, BRADYCARDIA-PACEMAKER, AFIB. SOCIAL HISTORY GENERAL: TOBACCO USE ARE YOU A:CURRENT SMOKER ARE YOU INTERESTED IN QUITTING?THINKING ABOUT QUITTING COUNSELED THE PATIENT ON SMOKING CESSATION, EDUCATION [id number]/02/2020 HOW MANY CIGARETTES A DAY DO YOU SMOKE?5 OR LESS HOW SOON AFTER YOU WAKE UP DO YOU SMOKE YOUR FIRST CIGARETTE?AFTER 60 MIN HOW OFTEN DO YOU SMOKE CIGARETTES?EVERY DAY LATEX QUESTIONNAIRE LATEX ALLERGY : HAVE YOU EVER DEVELOPED ANY TYPE OF REACTION AFTER HANDLING LATEX PRODUCTS SUCH RUBBER GLOVES, CONDOMS, DIAPHRAGMS, BALLOONS, SOCKS, OR UNDERWEAR?NO LATEX ALLERGY : HAVE YOU EVER DEVELOPED ANY TYPE OF REACTION DURING OR AFTER DENTAL APPOINTMENT, VAGINAL/RECTAL EXAMINATION, SURGICAL PROCEDURE, OR ANY OTHER EXPOSURE?NO DATE ASKED : 10/03/2019 LATEX RISK : HAVE YOU EVER HAD ANY DIFFICULTY BREATHING OR HIVES AFTER EATING OR HANDLING ANY FRUITS, OR VEGETABLES; SUCH KIWI, BANANAS, STONE FRUITS, OR CHESTNUTSNO LATEX RISK : DO YOU HAVE A PREVIOUS PERSONAL HISTORY OF MORE THAN NINE SURGERIES, SPINA BIFIDA, OR REPEATED CATHERIZATIONS? NO LATEX RISK : ARE YOU FREQUENTLY EXPOSED TO LATEX PRODUCTS IN YOUR OCCUPATION?NO ALCOHOL SCREENING DID YOU HAVE A DRINK CONTAINING ALCOHOL IN THE PAST YEAR?YES HOW OFTEN DID YOU HAVE A DRINK CONTAINING ALCOHOL IN THE PAST YEAR?MONTHLY OR LESS (1 POINT) POINTS1 INTERPRETATIONNEGATIVE RECREATIONAL DRUG USE DRUG USE?NO CAFFEINE CAFFEINE USE?YES 2-3 DAILY SEXUAL HX HAD SEX IN THE LAST 12 MONTHS (VAGINAL, ORAL, OR ANAL)?NO HAVE YOU EVER HAD AN STD?NO HIV / HEP-C SCREENING HIV TEST OFFERED TO PATIENT:YES DATE OFFERED:06/28/2017 TEST ACCEPTED:NO HEP-C TEST OFFERED TO PATIENT:YES DATE OFFERED:06/28/2017 REASON:PATIENT DECLINED TEST ACCEPTED:NO REASON:PATIENT DECLINED LATTER-DAY [id number] NONE NO ORTHODOX BELIEFS THAT WOULD IMPACT HEALTH CARE. LANGUAGE LANGUAGES SPOKEN:ITALIAN EDUCATION LEVEL OF EDUCATION:HIGH SCHOOL GED LEARNING BARRIERS / SPECIAL NEEDS CHANGE FROM LAST VISIT?NO BARRIERS TO LEARNING?NO HEARING IMPAIRED?NO TNITUS VISION IMPAIRED?YES COGNITIVELY IMPAIRED?NO :CORRECTIVE LENSES READINESS TO LEARN?YES LEARNING PREFERENCES?NO LEARNING CAPABILITIES PRESENT?YES EMOTIONAL BARRIERS?NO SPECIAL DEVICES?NO CLERK TELEGRAPH SERVICE NEEDED?NO DOMESTIC VIOLENCE DO YOU FEEL SAFE IN YOUR ENVIRONMENT?YES OCCUPATION: DISABLED. DIET: AVOIDS GREASY, FRIED FOODS, DAIRY.TRIES TO EAT SMALLER PORTIONS. EXERCISE: LOWER BACK EXERCISES, WALKS TOLERATED. MARITAL STATUS: .. OTHERS AT HOME: DAUGHTER. NEW PATIENT PAIN DIARY TODAY'S VISITNOTES 08/20/2019 PATIENT DESCRIBES PAIN :HAVE IT ALL THE TIME, SORE FROM 0-10, WHAT LEVEL IS YOUR PAIN TODAY?7 PAIN CLINIC PFS, CLERGY, PUBLIC HEALTH REFERRALS PFS REFERRAL NEEDED?NO CLERGY REFERRAL NEEDED?NO PUBLIC HEALTH REFERRAL NEEDED?NO WAS THE PROVIDER NOTIFIED OF ANY PERTINENT INFO? N/A HAS THE PATIENT BEEN EDUCATED REGARDING HIS/HER PLAN OF CARE?YES HAS THE PATIENT BEEN EDUCATED REGARDING PAIN, THE RISK FOR PAIN, THE IMPORTANCE OF EFFECTIVE PAIN MANAGEMENT, AND THE PAIN ASSESSMENT PROCESS?YES ADVANCE DIRECTIVE ADVANCE DIRECTIVE DISCUSSED WITH PATIENT:YES HEALTH CARE PROXY RAH ROSARIO [phone] HOSPITALIZATION/MAJOR DIAGNOSTIC PROCEDURE SURGICAL RELATED REVIEW OF SYSTEMS CONSTITUTIONAL: ANY RECENT FEVER NO . CHILLS NO . WEIGHT CHANGE OF UNKNOWN REASONS NO . GASTROENTEROLOGY: NEW UNEXPLAINABLE CHANGES IN BOWEL CONTROL NO . CONSTIPATION NO . GENITOURINARY: ANY NEW CHANGE IN BLADDER CONTROL? NO . NEUROLOGY: NEW ONSET DIZZINESS OR NEUROLOGICAL CHANGES NOT MENTIONED NO . NEW NUMBNESS OR PAIN PATTERNS NOT MENTIONED AND PERTINENT TO TODAY'S VISIT NO . CARDIOLOGY: NEW CHEST PRESSURE NO . NEW CHEST PAIN NO . RESPIRATORY: UNEXPLAINABLE COUGH NO . NEW SHORTNESS OF BREATH NO . VITAL SIGNS WT 131.4 LBS, HT 64 IN, BMI 22.55 INDEX, BP 148/65 MM HG, HR 91 /MIN, RR 16 /MIN, TEMP 97.7 F, OXYGEN SAT % 98%, NA INITIALS SC 10:38. EXAMINATION GENERAL EXAMINATION: GENERALAWAKE,ALERT ,PLEASANT . PSYCHAFFECT NORMAL . LUNGS:LUNG LINDSEY ARE CLEAR TO AUSCULTATION BILATERALLY. GOOD MOVEMENT OF AIR . HEART:S1, S2 IN A REGULAR RATE AND RHYTHM. NO SIGNIFICANT MURMURS, RUBS OR GALLOPS NOTED . ASSESSMENTS SPINAL STENOSIS, LUMBAR REGION WITH NEUROGENIC CLAUDICATION - M48.062 (PRIMARY) LUMBAR POST-LAMINECTOMY SYNDROME - M96.1 TREATMENT SPINAL STENOSIS, LUMBAR REGION WITH NEUROGENIC CLAUDICATION NOTES: CONTINUE HOME STRETCHING EXERCISES. CONTINUE WALKING PROGRAM. PROCEDURE CODES FA211 ESTABILISHED PATIENT [facility] FACILITY CHARGE DISPOSITION & COMMUNICATION FOLLOW UP 3 MONTHS (REASON: POSTLAMINECTOMY PAIN SYNDROME) ELECTRONICALLY SIGNED BY CARIDAD HENLEY ON 11/12/2019 AT 03:09 PM EDT DISCLAIMER : THIS IS A VISIT SUMMARY EXTRACTED FROM THE [employer] CHART. IT IS NOT A COPY OF THE [employer] PROGRESS NOTE. ZINA
== END ==
LOC: M PAIN 10:45
PROVIDERS: ATTEND Nurse Practitioner Family
DX: M48.062 Spinal stenosis, lumbar region with neurogenic claudication (principal); M96.1 Postlaminectomy syndrome, not elsewhere classified

== ENCOUNTER → 2019-11-14 | Outpatient (CLI) | payer MEDICARE ==
--- NOTE | 2019-11-14 12:18 | REP ---
REASON: Tobacco abuse. Followup. COMPARISON: 10/14/2018 Once again, as per the protocol, only lung window images were sent to the read station for interpretation. Once again, there is biapical pleuroparenchymal scarring, which is mild and stable. No new abnormal nodules, masses, or opacities have developed. Grossly, the mediastinum and pulmonary kaity are unchanged. Grossly, the imaged upper abdomen and imaged osseous structures are unchanged. IMPRESSION: Unchanged Lung-RADS category 2 exam. Electronically Signed by Edwar Limon DO 11/14/2019 04:59 P
== END ==
LOC: M RAD 10:31
PROVIDERS: ATTEND Family Medicine
DX: Z12.2 Encounter for screening for malignant neoplasm of respiratory organs (principal); F17.210 Nicotine dependence, cigarettes, uncomplicated

== ENCOUNTER → 2020-01-02 | Outpatient (CLI) | payer MEDICARE ==
--- NOTE | 2020-01-22 13:46 | DEXA ---
AP SPINE L1 - L4 1.157 -0.2 1.0 LT FEMUR TOTAL 0.989 -0.1 0.8 LT NECK 0.898 -1.0 0.2 RT FEMUR TOTAL 0.966 -0.3 0.6 RT NECK 0.902 -1.0 0.3 TOTAL BODY TOTAL OTHER COMMENTS: Normal bone densitometry of the spine. There is low bone density of the hips. The decreased density of the spine does represent a significant change. The increased density of the left hip does not represent significant change. The decreased density of the right hip does not represent significant change. The density of the spine has decreased 5.1% since the initial exam on 09/13/2004. The decreased 6.2% since the most recent exam on 09/28/2016. The density of the left hip has decreased 8.0% since the initial exam on 09/13/2004. The density of the left hip has increased 0.7% since the most recent exam on 09/28/2016. The density of the right hip has decreased 8.4% since the initial exam on 09/13/2004. The density of the right hip has decreased 1.3% since the most recent exam on 09/28/2016. FOLLOW-UP: Recommendation for the next bone density exam: 2 years. ZINA
== END ==
LOC: M WHC 13:20
PROVIDERS: ATTEND Family Medicine
DX: M85.88 Other specified disorders of bone density and structure, other site (principal)

== ENCOUNTER → 2020-02-03 | Outpatient (CLI) | payer MEDICARE ==
--- NOTE | 2020-02-06 12:49 | ECWPNPC ---
PATIENT NAME: LOGAN CRAVEN : 1960 GENDER: FEMALE VISIT DATE: 02/03/2020 DISCHARGE DATE: 02/03/20 1120 VISIT LOCKED DATE TIME: PHYSICIAN: ANDREA ELIAS PHYSICIAN PAGER NO: ACTIVE RESOURCE: ANDREA ELIAS REASON FOR APPOINTMENT 1. MED MGMT HISTORY OF PRESENT ILLNESS PAIN CENTER INTAKE QUESTIONS: HERE FOR FOLLOW-UP OF CHRONIC LOW BACK PAIN. WAS DOING WELL AFTER EPIDURALS STEROID INJECTION WITH CATHETER IN SEPTEMBER UNTIL THE PAST 2 WEEKS. PAIN HAS INCREASED. RATING PAIN LEVEL A 7/10 VAS. REVIEWED MRI AND DISCUSSED TREATMENT OPTIONS. GENERAL: -. FALL RISK SCREENING: SCREENING :NO FALLS REPORTED IN THE LAST YEAR PAIN SCREENING: PATIENT HAS A COMPLAINT OF ACUTE OR CHRONIC PAIN :YES LOCATION OF PAIN:LOW BACK, LEFT HIP, RIGHT HIP, BACK INTENSITY OF PAIN (SCALE OF 1 TO 10):7 WHAT DOES YOUR PAIN FEEL LIKE:CONTINOUS, SORE, SHOOTING DURATION:CONTINOUS PAIN IS INCREASED BY:PROLONGED STANDING PAIN IS DECREASED BY:OTHERS HORIZONAL D REPOSITIONING NURSING NOTE: -. CURRENT MEDICATIONS TAKING VITAMIN D 2000 UNIT CAPSULE 1 TABLET ORALLY ONCE A DAY TAKING CANE . MISCELLANEOUS QUAD CANE _ QD R27, NOTES: NOT ALWAYS TAKING CALCIUM 600 + D 600-400 MG-UNIT TABLET 1 TABLET ORALLY ONCE A DAY TAKING ELMIRON 100 MG CAPSULE 1 CAPSULE ON AN EMPTY STOMACH 1 TABLET THREE A DAY TAKING CARAFATE 1 GM TABLET 1 TABLET ON AN EMPTY STOMACH ORALLY AC TID TAKING COLESTIPOL HCL 1 GM TABLET 1 TAB ORALLY ONCE A DAY TAKING ESOMEPRAZOLE MAGNESIUM 40 MG CAPSULE DELAYED RELEASE 1 CAPSULE ORALLY AC BID TAKING LEFLUNOMIDE 20 MG TABLET 1 TABLET ORALLY ONCE A DAY TAKING CYANOCOBALAMIN 500 MCG TABLET 1 TABLET ORALLY 1 EVERY 5 DAYS TAKING ATORVASTATIN CALCIUM 20 MG TABLET 1 TABLET ORALLY ONCE A DAY TAKING RINVOQ 15 MG TABLET EXTENDED RELEASE 24 HOUR 1 TABLET ORALLY ONCE A DAY TAKING HYDROCODONE-ACETAMINOPHEN 5-325 MG TABLET 1 TABLET NEEDED ORALLY TID PRN MDD = 3 TAKING CARISOPRODOL 350 MG TABLET 1 TABLET NEEDED ORALLY TID PRN, MDD 3 NOT-TAKING PREMARIN 0.625 MG/GM CREAM 1 GRAM VAGINAL WEEKLY NOT-TAKING DERMOTIC 0.01 % OIL 5 DROPS INTO AFFECTED EAR OTIC TWICE A DAY X 5D C FLARES NOT-TAKING ORPHENADRINE CITRATE ER 100 MG TABLET EXTENDED RELEASE 12 HOUR 1 TABLET ORALLY TWICE A DAY NOT-TAKING SARILUMAB 150 MG/1.14ML SOLUTION PREFILLED SYRINGE 1.14 ML SUBCUTANEOUS MEDICATION LIST REVIEWED AND RECONCILED WITH THE PATIENT PAST MEDICAL HISTORY RA/OSTEOARTHRITIS/FIBROMYALGIA NICOTINE ADDICTION-08/2011 FEV1 2.5L (101%)/RATIO 97%-1 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 GERD/DYSPEPSIA-06/2016 NORMAL EGD/COLON/SB CAPSULE-R HYPERLIPIDEMIA 2B ENDOMETRIOSIS 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 SPENCER 2008 FOLLOWS WITH WOMAN TO WOMAN HISTORY OF TUBULAR ADENOMA-NORMAL COLONOSCOPY APRIL 2009 NORMAL COLONOSCOPY C - RANDOM BIOPSIES-[place] COLONOSCOPY 07/18/16 REINDL CERVICAL DJD STATUS POST MULTILEVEL FUSION-01/2010 MRI STABLE ACDF C BASELINE DJD ATROPHIC VAGINITIS OSTEOPENIA VITAMIN D DEFICIENCY CHRONIC SINUSITIS / NONE LATELY RECURRENT UTI / YEARS AGO CHRONIC DIARRHEA STATUS POST LAPAROSCOPIC CHOLECYSTECTOMY JULY 2009//[id number] CHRONIC DRY EYES MEMORY LOSS 2 INSOMNIA, WORK STRESS-12/2011 NORMAL MRI BRAIN S AND NORMAL WORKUP LUMBAR DJD-L2/3 BULGE C L IF HNP C L L2 COMPRESSION, L3/4 SEVERE CCS C B L3 COMPRESSION BY 03/2017 MRI LONG-TERM DISABILITY-TAKEN OOW 08/05/13 [address] BARAJAS, 01/2014 FILLED OUT LTD PAPERWORK FOR GUARDIAN-PATIENT DEFERRED WCE INSOMNIA, COOMORBID ALLERGIES METHOTREXATE (ANTI-RHEUMATIC): MIGRANES - SIDE EFFECTS CYMBALTA: RACING PLUSE, SHAKES - ALLERGY WELLBUTRIN: PALPITATIONS, SEVERE - ALLERGY SULFA (FOR ALLERGY USE ONLY): NAUSEA/VOMITING - ALLERGY LYRICA: PALPITATIONS - ALLERGY CELEXA: PALPITATIONS - SIDE EFFECTS ORENCIA: ANAPHYLAXIS - ALLERGY TOPICAL ALOE VERA: SEVERE ITCHING CANNOT TOLERATE ASA BASED PRODUCTS/ NSAIDS: HX STOMACH BLEED - CONTRAINDICATION SURGICAL HISTORY LAPAROSCOPY X2 CHRISTINE BTL 1981 TVH [address] SPENCER 2007 VAGINAL CUFF BX. IRMA CHANDLER NP 03/07 CHOLECYSTECTOMY 06/09 ACDF-C4-T1 10/06 R BREAST [id number] 09/2010 ABOVE L CTR-DR EAST 10/27/14 L4-L5 FUSION/LAMINECTOMY 09/2013 NORMAL EGD/COLON/SB CAPSULE-R 06/2016 FUSION C5 C6 1998 HYSTERECTOMY 1988 BENIGN MOLE REMOVAL 2018 FAMILY HISTORY FATHER: , DM, LUNG CANCER, CAD, DX ALZHEIMER, DIAGNOSED WITH OTHER MALIGNANT NEOPLASM OF UNSPECIFIED SITE MOTHER: , COPD SIBLINGS: BROTHER HTN,1/2 BROTHER DM SON(S): HTN PATERNAL GRAND FATHER: , CANCER, COLON PATERNAL GRAND MOTHER: COLON CANCER LATER YEARS MATERNAL UNCLE: PROSTATE CANCER 70'S ,LEUKEMIA IN HIS 50'S MATERNAL AUNT: ALIVE, HYPERLIPIDEMIA, COLON CANCER IN HER 60'S 2 BROTHER(S) , 1 SISTER(S) - HEALTHY. 1 SON(S) , 1 DAUGHTER(S) . PGM, MGF C COLON CANCER\\\\NMOM-GRAVES DISEASE\\\\NSON-SEIZURES, BRADYCARDIA-PACEMAKER, AFIB. SOCIAL HISTORY GENERAL: TOBACCO USE ARE YOU A:CURRENT SMOKER ARE YOU INTERESTED IN QUITTING?THINKING ABOUT QUITTING COUNSELED THE PATIENT ON SMOKING CESSATION, EDUCATION [id number]/02/2020 HOW MANY CIGARETTES A DAY DO YOU SMOKE?5 OR LESS HOW SOON AFTER YOU WAKE UP DO YOU SMOKE YOUR FIRST CIGARETTE?AFTER 60 MIN HOW OFTEN DO YOU SMOKE CIGARETTES?EVERY DAY PATIENT COUNSELED ON THE DANGERS OF TOBACCO USE AND URGED TO QUIT:02/03/2020 LATEX QUESTIONNAIRE LATEX ALLERGY : HAVE YOU EVER DEVELOPED ANY TYPE OF REACTION AFTER HANDLING LATEX PRODUCTS SUCH RUBBER GLOVES, CONDOMS, DIAPHRAGMS, BALLOONS, SOCKS, OR UNDERWEAR?NO LATEX ALLERGY : HAVE YOU EVER DEVELOPED ANY TYPE OF REACTION DURING OR AFTER DENTAL APPOINTMENT, VAGINAL/RECTAL EXAMINATION, SURGICAL PROCEDURE, OR ANY OTHER EXPOSURE?NO LATEX RISK : HAVE YOU EVER HAD ANY DIFFICULTY BREATHING OR HIVES AFTER EATING OR HANDLING ANY FRUITS, OR VEGETABLES; SUCH KIWI, BANANAS, STONE FRUITS, OR CHESTNUTSNO LATEX RISK : DO YOU HAVE A PREVIOUS PERSONAL HISTORY OF MORE THAN NINE SURGERIES, SPINA BIFIDA, OR REPEATED CATHERIZATIONS? NO LATEX RISK : ARE YOU FREQUENTLY EXPOSED TO LATEX PRODUCTS IN YOUR OCCUPATION?NO DATE ASKED : 10/03/2019 ALCOHOL SCREENING DID YOU HAVE A DRINK CONTAINING ALCOHOL IN THE PAST YEAR?YES HOW OFTEN DID YOU HAVE A DRINK CONTAINING ALCOHOL IN THE PAST YEAR?MONTHLY OR LESS (1 POINT) POINTS1 INTERPRETATIONNEGATIVE RECREATIONAL DRUG USE DRUG USE?NO CAFFEINE CAFFEINE USE?YES 2-3 DAILY SEXUAL HX HAD SEX IN THE LAST 12 MONTHS (VAGINAL, ORAL, OR ANAL)?NO HAVE YOU EVER HAD AN STD?NO HIV / HEP-C SCREENING HIV TEST OFFERED TO PATIENT:YES DATE OFFERED:06/28/2017 TEST ACCEPTED:NO HEP-C TEST OFFERED TO PATIENT:YES DATE OFFERED:06/28/2017 REASON:PATIENT DECLINED TEST ACCEPTED:NO REASON:PATIENT DECLINED LUTHERAN [id number] NONE NO RELIGION BELIEFS THAT WOULD IMPACT HEALTH CARE. LANGUAGE LANGUAGES SPOKEN:CAMEROONIAN EDUCATION LEVEL OF EDUCATION:HIGH SCHOOL GED LEARNING BARRIERS / SPECIAL NEEDS CHANGE FROM LAST VISIT?NO BARRIERS TO LEARNING?NO HEARING IMPAIRED?NO TNITUS VISION IMPAIRED?YES COGNITIVELY IMPAIRED?NO :CORRECTIVE LENSES READINESS TO LEARN?YES LEARNING PREFERENCES?NO LEARNING CAPABILITIES PRESENT?YES EMOTIONAL BARRIERS?NO SPECIAL DEVICES?NO FLUID DESIGNER NEEDED?NO DOMESTIC VIOLENCE DO YOU FEEL SAFE IN YOUR ENVIRONMENT?YES OCCUPATION: DISABLED. DIET: AVOIDS GREASY, FRIED FOODS, DAIRY.TRIES TO EAT SMALLER PORTIONS. EXERCISE: LOWER BACK EXERCISES, WALKS TOLERATED. MARITAL STATUS: .. OTHERS AT HOME: DAUGHTER. NEW PATIENT PAIN DIARY TODAY'S VISITNOTES 08/20/2019 PATIENT DESCRIBES PAIN :HAVE IT ALL THE TIME, SORE FROM 0-10, WHAT LEVEL IS YOUR PAIN TODAY?7 PAIN CLINIC PFS, CLERGY, PUBLIC HEALTH REFERRALS PFS REFERRAL NEEDED?NO CLERGY REFERRAL NEEDED?NO PUBLIC HEALTH REFERRAL NEEDED?NO WAS THE PROVIDER NOTIFIED OF ANY PERTINENT INFO? N/A HAS THE PATIENT BEEN EDUCATED REGARDING HIS/HER PLAN OF CARE?YES HAS THE PATIENT BEEN EDUCATED REGARDING PAIN, THE RISK FOR PAIN, THE IMPORTANCE OF EFFECTIVE PAIN MANAGEMENT, AND THE PAIN ASSESSMENT PROCESS?YES ADVANCE DIRECTIVE ADVANCE DIRECTIVE DISCUSSED WITH PATIENT:YES HEALTH CARE PROXY RAH ROSARIO [phone] HOSPITALIZATION/MAJOR DIAGNOSTIC PROCEDURE SURGICAL RELATED REVIEW OF SYSTEMS CONSTITUTIONAL: ANY RECENT FEVER NO . CHILLS NO . WEIGHT CHANGE OF UNKNOWN REASONS NO . GASTROENTEROLOGY: NEW UNEXPLAINABLE CHANGES IN BOWEL CONTROL NO . CONSTIPATION NO . GENITOURINARY: ANY NEW CHANGE IN BLADDER CONTROL? NO . NEUROLOGY: NEW ONSET DIZZINESS OR NEUROLOGICAL CHANGES NOT MENTIONED NO . NEW NUMBNESS OR PAIN PATTERNS NOT MENTIONED AND PERTINENT TO TODAY'S VISIT NO . CARDIOLOGY: NEW CHEST PRESSURE NO . NEW CHEST PAIN NO . RESPIRATORY: UNEXPLAINABLE COUGH NO . NEW SHORTNESS OF BREATH NO . VITAL SIGNS WT 133.2 LBS, HT 64 IN, BMI 22.86 INDEX, BP 132/60 MM HG, HR 88 /MIN, RR 18 /MIN, TEMP 97.3 F, OXYGEN SAT % 97%, NA INITIALS AW 1040. EXAMINATION GENERAL EXAMINATION: GENERAL AWAKE,ALERT ,PLEASANT . PSYCH AFFECT NORMAL . LUNGS: LUNG LINDSEY ARE CLEAR TO AUSCULTATION BILATERALLY. GOOD MOVEMENT OF AIR . HEART: S1, S2 IN A REGULAR RATE AND RHYTHM. NO SIGNIFICANT MURMURS, RUBS OR GALLOPS NOTED . MUSCULOSKELETAL: MUSCLE STRENGTH TESTING 5/5 BILATERAL LOWER EXTREMITIES. LUMBAR: PALPATION: + FOR PAIN OVER L/S SPINE. + FOR PAIN OVER L/S PARASPINALS WELL-HEALED SURGICAL SCAR L/S AXIS. DIAGNOSTIC TESTS REVIEWEDI L/S SPINE . 06/2019. ASSESSMENTS LUMBAR POST-LAMINECTOMY SYNDROME - M96.1 (PRIMARY) TREATMENT LUMBAR POST-LAMINECTOMY SYNDROME NOTES: L5/S1/CAUDAL EPIDURAL W CATH . PROCEDURE CODES FA211 ESTABILISHED PATIENT [facility] FACILITY CHARGE DISPOSITION & COMMUNICATION FOLLOW UP POST PROCEDURE (REASON: L5/S1/CAUDAL EPIDURAL W CATH) ELECTRONICALLY SIGNED BY CARIDAD HENLEY ON 02/06/2020 AT 12:47 PM EDT DISCLAIMER : THIS IS A VISIT SUMMARY EXTRACTED FROM THE [employer] CHART. IT IS NOT A COPY OF THE [employer] PROGRESS NOTE. ZINA
== END ==
LOC: M PAIN 10:30
PROVIDERS: ATTEND Nurse Practitioner Family
DX: M96.1 Postlaminectomy syndrome, not elsewhere classified (principal); K21.9 Gastro-esophageal reflux disease without esophagitis; E78.5 Hyperlipidemia, unspecified; E55.9 Vitamin D deficiency, unspecified; G47.00 Insomnia, unspecified; F17.210 Nicotine dependence, cigarettes, uncomplicated; Z88.2 Allergy status to sulfonamides; Z88.6 Allergy status to analgesic agent; Z88.8 Allergy status to other drugs, medicaments and biological substances; Z91.09 Other allergy status, other than to drugs and biological substances; Z79.899 Other long term (current) drug therapy

== ENCOUNTER → 2020-02-18 | Outpatient (CLI) | payer MEDICARE | LOC: M LABSMTC 10:53 | PROVIDERS: ATTEND Anesthesiology | DX: Z01.812 Encounter for preprocedural laboratory examination (principal); Z20.828 Contact with and (suspected) exposure to other viral communicable diseases | CPT/HCPCS: C9803; U0003 ==

== ENCOUNTER → 2020-02-23 | Outpatient (CLI) | payer MEDICARE ==
[~2020-02-23] MED LIST changes: +ISOVUE-M 300 61% 15ML VIAL As Ordered ONE; +LIDOCAINE 1% SDV 30ML VIAL As Ordered ONE; +diazePAM 5 MG TAB As Ordered ONE; +diphenhydrAMINE 25MG CAP As Ordered ONE; +methylPREDNISolone SUSP 40MG/ML 1ML VIAL (DEPO MEDROL) As Ordered ONE; +oxyCODONE 5MG TAB As Ordered ONE
--- NOTE | 2020-02-23 12:09 | REP ---
INDICATION: LUMBAR VS CAUDAL EPIDURAL STEROID INJECTION. Pain COMPARISON: None. TECHNIQUE: Multiple C-arm views lower lumbar spine performed. FINDINGS: A needle is seen in the region of the lumbosacral junction. Small amount of contrast is injected. IMPRESSION: 12 seconds fluoroscopy time utilized. <Electronically signed by Harish Kennedy > 02/23/20 [id number]
--- NOTE | 2020-02-28 04:37 | ECWPNPC ---
PATIENT NAME: LOGAN CRAVEN : 1960 GENDER: FEMALE VISIT DATE: 02/23/2020 DISCHARGE DATE: 02/23/20 1156 VISIT LOCKED DATE TIME: PHYSICIAN: KENDRA CRAFT MD PHYSICIAN PAGER NO: ACTIVE RESOURCE: KENDRA CRAFT MD REASON FOR APPOINTMENT 1. L5/S1 EPIDURAL W CATH NEEDS PROC RM 2 HISTORY OF PRESENT ILLNESS GENERAL: -. FALL RISK SCREENING: SCREENING :NO FALLS REPORTED IN THE LAST YEAR PAIN SCREENING: PATIENT HAS A COMPLAINT OF ACUTE OR CHRONIC PAIN :YES LOCATION OF PAIN:LOW BACK INTENSITY OF PAIN (SCALE OF 1 TO 10):8 WHAT DOES YOUR PAIN FEEL LIKE:ACHING DURATION:CONTINOUS, CONSTANT PAIN IS INCREASED BY:ACTIVITIES PAIN IS DECREASED BY:USE OF PAIN MEDICATIONS, SITTING TREATMENT/MEDICATIONS USED TO MANAGE PAIN:OPIOIDS LEVEL OF RELIEF FROM PAIN TREATMENTS IN THE PAST:100% PAIN HAS INTERFERED WITH THE FOLLOWING:BATHING/DRESSING, WALKING ABILITY, HOUSEWORK, SLEEP, TOILETING NURSING NOTE: -. PAIN CENTER INTAKE QUESTIONS: DO YOU HAVE A HISTORY OF MRSA? :NO DO YOU TAKE A BLOOD THINNERS? :NO IMMUNOSUPPRESSANTS THIN BLOOD DO YOU HAVE ANY BLEEDING DISORDERS? :NO ANY NEW NUMBNESS OR WEAKNESS IN YOUR LEGS OR ARMS? :YES WEAKNESS IN RIGHT LEG ANY PACEMAKER,DEFIBRILLATOR, OR DORSAL COLUMN STIMULATOR? :NO DO YOU HAVE ANY RASHES OR OPEN SORES? :NO ARE YOU ALLERGIC TO IV DYE? :NO ARE YOU DIABETIC? :NO ANY NEW PROBLEMS WITH YOUR MEDICATIONS? :NO HAVE YOU RECEIVED A VACCINE IN THE PAST 30 DAYS? :YES IF SO WHAT VACCINE AND WHEN? FLU VACCINE 01/30/20 DO YOU PLAN TO RECEIVE A VACCINE IN THE NEXT 21 DAYS? :NO DO YOU TAKE ANY IMMUNOSUPPRESSIVE MEDICATIONS? :YES LEFLUNIMIDE FOR RA, WILL START ENBREL IN 2 WEEKS ANY HISTORY OF SEIZURES? :NO ANY HISTORY OF CARDIAC ISSUES OR EVENTS? :NO DO YOU HAVE SLEEP APNEA? :NO ANY RECENT HEAD INJURY? :NO DO YOU HAVE ANY NEW INFECTIONS? :NO IS THERE A CHANCE YOU COULD BE ? :NO ARE YOU BREAST FEEDING? :NO WHEN DID YOU LAST EAT? : 02/21 1730 WHEN DID YOU LAST DRINK? : 02/22 730 WHAT DID YOU LAST DRINK? : WATER NAME OF PERSON DRIVING YOU HOME? : BOYFRIEND-KATIE DO YOU HAVE ANY OTHER QUESTIONS OR CONCERNS? : NONE CURRENT MEDICATIONS TAKING VITAMIN D 2000 UNIT CAPSULE 1 TABLET ORALLY ONCE A DAY, NOTES: 02/21 1500 TAKING CANE . MISCELLANEOUS QUAD CANE _ QD R27, NOTES: NOT ALWAYS TAKING CALCIUM 600 + D 600-400 MG-UNIT TABLET 1 TABLET ORALLY ONCE A DAY, NOTES: 02/21 1500 TAKING COLESTIPOL HCL 1 GM TABLET 1 TAB ORALLY ONCE A DAY, NOTES: 02/21 900 TAKING ESOMEPRAZOLE MAGNESIUM 40 MG CAPSULE DELAYED RELEASE 1 CAPSULE ORALLY AC BID, NOTES: 02/22 600 TAKING LEFLUNOMIDE 20 MG TABLET 1 TABLET ORALLY ONCE A DAY, NOTES: 02/08/20 TAKING CYANOCOBALAMIN 500 MCG TABLET 1 TABLET ORALLY 1 EVERY 5 DAYS, NOTES: 02/21 1500 TAKING ATORVASTATIN CALCIUM 20 MG TABLET 1 TABLET ORALLY ONCE A DAY, NOTES: 02/21 900 TAKING CARAFATE 1 GM TABLET 1 TABLET ON AN EMPTY STOMACH ORALLY AC TID, NOTES: 02/22 630 TAKING ELMIRON 100 MG CAPSULE 1 CAPSULE ON AN EMPTY STOMACH 1 TABLET THREE A DAY, NOTES: 02/22 600 TAKING CARISOPRODOL 350 MG TABLET 1 TABLET NEEDED ORALLY TID PRN, MDD 3, NOTES: 02/22 730 TAKING HYDROCODONE-ACETAMINOPHEN 5-325 MG TABLET 1 TABLET NEEDED ORALLY TID PRN MDD = 3, NOTES: 02/22 730 NOT-TAKING RINVOQ 15 MG TABLET EXTENDED RELEASE 24 HOUR 1 TABLET ORALLY ONCE A DAY NOT-TAKING PREMARIN 0.625 MG/GM CREAM 1 GRAM VAGINAL WEEKLY NOT-TAKING DERMOTIC 0.01 % OIL 5 DROPS INTO AFFECTED EAR OTIC TWICE A DAY X 5D C FLARES NOT-TAKING ORPHENADRINE CITRATE ER 100 MG TABLET EXTENDED RELEASE 12 HOUR 1 TABLET ORALLY TWICE A DAY NOT-TAKING SARILUMAB 150 MG/1.14ML SOLUTION PREFILLED SYRINGE 1.14 ML SUBCUTANEOUS MEDICATION LIST REVIEWED AND RECONCILED WITH THE PATIENT PAST MEDICAL HISTORY RA/OSTEOARTHRITIS/FIBROMYALGIA NICOTINE ADDICTION-08/2011 FEV1 2.5L (101%)/RATIO 97%-1 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 GERD/DYSPEPSIA-06/2016 NORMAL EGD/COLON/SB CAPSULE-R HYPERLIPIDEMIA 2B ENDOMETRIOSIS 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 SPENCER 2008 FOLLOWS WITH WOMAN TO WOMAN HISTORY OF TUBULAR ADENOMA-NORMAL COLONOSCOPY APRIL 2009 NORMAL COLONOSCOPY C - RANDOM BIOPSIES-[place] COLONOSCOPY 07/18/16 REINDL CERVICAL DJD STATUS POST MULTILEVEL FUSION-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 BARAJAS, 01/2014 FILLED OUT LTD PAPERWORK FOR GUARDIAN-PATIENT DEFERRED WCE INSOMNIA, COOMORBID ALLERGIES METHOTREXATE (ANTI-RHEUMATIC): MIGRANES - SIDE EFFECTS CYMBALTA: RACING PLUSE, SHAKES - ALLERGY WELLBUTRIN: PALPITATIONS, SEVERE - ALLERGY SULFA (FOR ALLERGY USE ONLY): NAUSEA/VOMITING - ALLERGY LYRICA: PALPITATIONS - ALLERGY CELEXA: PALPITATIONS - SIDE EFFECTS ORENCIA: ANAPHYLAXIS - ALLERGY TOPICAL ALOE VERA: SEVERE ITCHING CANNOT TOLERATE ASA BASED PRODUCTS/ NSAIDS: HX STOMACH BLEED - CONTRAINDICATION SURGICAL HISTORY LAPAROSCOPY X2 CHRISTINE BTL 1981 TVH [address] SPENCER 2008 VAGINAL CUFF BX. IRMA CHANDLER,MARIO 03/07 CHOLECYSTECTOMY 06/09 ACDF-C4-T1 10/06 R BREAST [id number] 09/2010 ABOVE L CTR-DR EAST 10/27/14 L4-L5 FUSION/LAMINECTOMY 09/2013 NORMAL EGD/COLON/SB CAPSULE-R 06/2016 FUSION C5 C6 1999 HYSTERECTOMY 1988 BENIGN MOLE REMOVAL 2018 FAMILY HISTORY FATHER: , DM, LUNG CANCER, CAD, DX ALZHEIMER, DIAGNOSED WITH OTHER MALIGNANT NEOPLASM OF UNSPECIFIED SITE MOTHER: , COPD SIBLINGS: BROTHER HTN,1/2 BROTHER DM SON(S): HTN PATERNAL GRAND FATHER: , CANCER, COLON PATERNAL GRAND MOTHER: COLON CANCER LATER YEARS MATERNAL UNCLE: PROSTATE CANCER 70'S ,LEUKEMIA IN HIS 50'S MATERNAL AUNT: ALIVE, HYPERLIPIDEMIA, COLON CANCER IN HER 60'S 2 BROTHER(S) , 1 SISTER(S) - HEALTHY. 1 SON(S) , 1 DAUGHTER(S) . PGM, MGF C COLON CANCER\\\\NMOM-GRAVES DISEASE\\\\NSON-SEIZURES, BRADYCARDIA-PACEMAKER, AFIB. SOCIAL HISTORY GENERAL: TOBACCO USE ARE YOU A:CURRENT SMOKER ARE YOU INTERESTED IN QUITTING?THINKING ABOUT QUITTING COUNSELED THE PATIENT ON SMOKING CESSATION, EDUCATION [id number]/22/2020 HOW MANY CIGARETTES A DAY DO YOU SMOKE?5 OR LESS HOW SOON AFTER YOU WAKE UP DO YOU SMOKE YOUR FIRST CIGARETTE?AFTER 60 MIN HOW OFTEN DO YOU SMOKE CIGARETTES?EVERY DAY PATIENT COUNSELED ON THE DANGERS OF TOBACCO USE AND URGED TO QUIT:02/23/2020 LATEX QUESTIONNAIRE LATEX ALLERGY : HAVE YOU EVER DEVELOPED ANY TYPE OF REACTION AFTER HANDLING LATEX PRODUCTS SUCH RUBBER GLOVES, CONDOMS, DIAPHRAGMS, BALLOONS, SOCKS, OR UNDERWEAR?NO LATEX ALLERGY : HAVE YOU EVER DEVELOPED ANY TYPE OF REACTION DURING OR AFTER DENTAL APPOINTMENT, VAGINAL/RECTAL EXAMINATION, SURGICAL PROCEDURE, OR ANY OTHER EXPOSURE?NO LATEX RISK : HAVE YOU EVER HAD ANY DIFFICULTY BREATHING OR HIVES AFTER EATING OR HANDLING ANY FRUITS, OR VEGETABLES; SUCH KIWI, BANANAS, STONE FRUITS, OR CHESTNUTSNO LATEX RISK : DO YOU HAVE A PREVIOUS PERSONAL HISTORY OF MORE THAN NINE SURGERIES, SPINA BIFIDA, OR REPEATED CATHERIZATIONS? NO LATEX RISK : ARE YOU FREQUENTLY EXPOSED TO LATEX PRODUCTS IN YOUR OCCUPATION?NO DATE ASKED : 02/23/2020 ALCOHOL SCREENING DID YOU HAVE A DRINK CONTAINING ALCOHOL IN THE PAST YEAR?YES HOW OFTEN DID YOU HAVE A DRINK CONTAINING ALCOHOL IN THE PAST YEAR?MONTHLY OR LESS (1 POINT) POINTS1 INTERPRETATIONNEGATIVE RECREATIONAL DRUG USE DRUG USE?NO CAFFEINE CAFFEINE USE?YES 2-3 DAILY SEXUAL HX HAD SEX IN THE LAST 12 MONTHS (VAGINAL, ORAL, OR ANAL)?NO HAVE YOU EVER HAD AN STD?NO HIV / HEP-C SCREENING HIV TEST OFFERED TO PATIENT:YES DATE OFFERED:06/28/2017 TEST ACCEPTED:NO HEP-C TEST OFFERED TO PATIENT:YES DATE OFFERED:06/28/2017 REASON:PATIENT DECLINED TEST ACCEPTED:NO REASON:PATIENT DECLINED YARSANISM [id number] NONE NO MOSQUE BELIEFS THAT WOULD IMPACT HEALTH CARE. LANGUAGE LANGUAGES SPOKEN:PORTUGUES[place] EDUCATION LEVEL OF EDUCATION:HIGH SCHOOL GED LEARNING BARRIERS / SPECIAL NEEDS CHANGE FROM LAST VISIT?NO BARRIERS TO LEARNING?NO HEARING IMPAIRED?NO TNITUS VISION IMPAIRED?YES COGNITIVELY IMPAIRED?NO :CORRECTIVE LENSES READINESS TO LEARN?YES LEARNING PREFERENCES?NO LEARNING CAPABILITIES PRESENT?YES EMOTIONAL BARRIERS?NO SPECIAL DEVICES?NO BUSINESS SUPPORT PROFESSIONAL NEEDED?NO DOMESTIC VIOLENCE DO YOU FEEL SAFE IN YOUR ENVIRONMENT?YES OCCUPATION: DISABLED. DIET: AVOIDS GREASY, FRIED FOODS, DAIRY.TRIES TO EAT SMALLER PORTIONS. EXERCISE: LOWER BACK EXERCISES, WALKS TOLERATED. MARITAL STATUS: .. OTHERS AT HOME: DAUGHTER. PAIN CLINIC PFS, CLERGY, PUBLIC HEALTH REFERRALS PFS REFERRAL NEEDED?NO CLERGY REFERRAL NEEDED?NO PUBLIC HEALTH REFERRAL NEEDED?NO HAS THE PATIENT BEEN EDUCATED REGARDING HIS/HER PLAN OF CARE?YES HAS THE PATIENT BEEN EDUCATED REGARDING PAIN, THE RISK FOR PAIN, THE IMPORTANCE OF EFFECTIVE PAIN MANAGEMENT, AND THE PAIN ASSESSMENT PROCESS?YES ADVANCE DIRECTIVE ADVANCE DIRECTIVE DISCUSSED WITH PATIENT:YES 02/22/2050 PT STATES SHE HAS A HEALTH CARE PROXY-RAH ROSARIO [phone] HOSPITALIZATION/MAJOR DIAGNOSTIC PROCEDURE SURGICAL RELATED VITAL SIGNS WT 131.4 LBS, HT 64 IN, BMI 22.55 INDEX, BP 129/66 MM HG, HR 95 /MIN, RR 18 /MIN, TEMP 97.2 F, OXYGEN SAT % 97%, SAFE IN ENV? (Y/N) Y, NA INITIALS SC 09:38, REVIEWED BY: AD. EXAMINATION GENERAL EXAMINATION: THE PATIENT IS ALERT, ORIENTED TIMES THREE AND COOPERATIVE. HEART SHOWS REGULAR RHYTHM, NO MURMURS AND NO GALLOPS. LUNGS ARE CLEAR TO AUSCULTATION. ASSESSMENTS LUMBAR POST-LAMINECTOMY SYNDROME - M96.1 (PRIMARY) TREATMENT LUMBAR POST-LAMINECTOMY SYNDROME [facility] FLUORO GUIDE SPINE INJECTION (PAIN)[id number] MEDICATION: BENADRYL TAB 25MG ORALLY (DIPHENHYDRAMINE)RAMONA FRAIRE 02/23/2020 10:25:38 AM > LOT 3 [id number] EXP 05/2022 SALEEM WILSON 02/23/2020 10:29:10 AM > VERIFIED. RAMONA FRAIRE 02/23/2020 10:30:53 AM > ADMINISTERED MEDICATION: VALIUM TAB 10MG ORALLY (DIAZEPAM)RAMONA FRAIRE 02/23/2020 10:26:21 AM > LOT # [id number] EXP 08/18 SALEEM WILSON 02/23/2020 10:28:39 AM > VERIFIED. RAMONA FRAIRE 02/23/2020 10:31:33 AM > ADMINISTERED MEDICATION: OXYCODONE HCL TAB 10MG ORALLYDERAMONA BOLIVAR 02/23/2020 10:27:06 AM > LOT 3 [id number] EXP 05/2021 SALEEM WILSON 02/23/2020 10:28:53 AM > VERIFIED. YEERAMONA 02/23/2020 10:31:59 AM > ADMINISTERED OTHERS NOTES: 02/19/20 TIMOTHY ROSADO, FLIGHT RESERVATIONS MANAGER. PROCEDURES PAIN NURSING RECORD PRE-PROCEDURE IV SITE N/A, PRE-PROCEDURE ORAL MEDICATIONS SEE MEDICATION ORDERS PROCEDURE IN ROOM 1057, PHYSICIAN IN ROOM 1110, START 1117, FINISH 1127, PHYSICIAN OUT OF ROOM 1129, OUT OF ROOM 1136, STEROID DEPOMEDROL, O2 RA, ECG NORMAL SINUS, PATIENT SHIELDED YES, SAFETY STRAP YES, PREP BETADINE Shay HOU RN, IV INFUSED N/A, DRESSING TEGADERM DR. CRAFT LOC: YEE,RAMONA 02/23/2020 10:43:23 AM > 1. ALERT, ORIENTED YEE,RAMONA 02/23/2020 11:53:28 PM > 1. ALERT, ORIENTED RESP: YEERAMONA 02/23/2020 10:43:27 AM > 1. REGULAR, NO DYSPNEA YEERAMONA 02/23/202011:53:48 PM > COLOR: YEE,RAMONA 02/23/2020 10:43:30 AM > 1. PINK YEE,RAMONA 02/23/2020 11:53:51 PM > 1. PINK SKIN: YEE,RAMONA 02/23/2020 10:43:38 AM > 1. WARM, DRY YEE,RAMONA 02/23/2020 11:53:52PM > 1. WARM, DRY POSITION: YEERAMONA 02/23/2020 10:58:11 AM > 1. PRONE YEE,RAMONA 02/23/2020 11:53:55 PM > 4. OTHER-SITTING VITALS: YEE,RAMONA 02/23/2020 11:00:45 AM >141/74, 86,16,99% YEE,RAMONA 02/23/2020 11:14:52 AM > 132/71, 86,16,93% YEE,RAMONA 02/23/2020 11:30:00 AM > 143/72,82,16,93% YEE,RAMONA 02/23/2020 11:35:07 AM > 129/61,82,18,94% YEE,RAMONA 02/23/2020 11:49:43 AM > 149/65,90,18,99% NOTES AFTER EXAMIN UNDER FLUORO IT WAS DETEMINED TO DO A LUMBAR EPIDURAL DISCHARGE: POST PAIN 5, DRESSING SITE DRY AND INTACT, IV N/A, GAIT STEADY, TEACHING COMPLETED, PATIENT ACKNOWLEDGES UNDERSTANDING YES, PATIENT DISCHARGED AT 1154 PRE PROCEDURE DIAGNOSIS LUMBAR POST LAMINECTOMY PAIN SYNDROME POST PROCEDURE DIAGNOSIS LUMBAR POST LAMINECTOMY PAIN SYNDROME PROCEDURE LUMBAR EPIDURAL STEROID INJECTION WITH A CATHETER UNDER FLUOROSCOPIC GUIDANCE SURGEON DR. KENDRA CRAFT TWIST TESTER NONE ANESTHESIA LOCAL PRE PROCEDURE NOTE THE PATIENT HAS A HISTORY OF CHRONIC LOW BACK PAIN. I EVALUATED THE PATIENT AND REVIEWED THE CHART. I WENT OVER THE RISKS, ALTERNATIVES, AND BENEFITS ASSOCIATED WITH THIS PROCEDURE. I DISCUSSED THAT THE USE OF STEROIDS MAY CONTRIBUTE TO IMMUNOSUPPRESSION OF THE PATIENT'S BODY AGAINST INFECTIONS SUCH COVID-19. THE PATIENT IS AWARE OF THE POTENTIAL COMPLICATIONS ASSOCIATED WITH THIS VIRUS, INCLUDING, BUT NOT LIMITED TO, . THE PATIENT WOULD LIKE TO PROCEED AND GIVE CONSENT TO PERFORMED THE PROCEDURE. THE PATIENT DENIES UNEXPLAINABLE WEIGHT LOSS, FEVER, CHILLS, OR NEW CHANGES IN URINARY OR BOWEL CONTROL. THE PATIENT IS COVID-19 NEGATIVE DESCRIPTION OF PROCEDURE THE PATIENT WAS BROUGHT TO THE PROCEDURE ROOM AND PLACED IN THE PRONE POSITION. THE LUMBOSACRAL AREA WAS CLEANED WITH BETADINE SOLUTION AND DRAPED ASEPTICALLY. THE PROCEDURE WAS DONE UNDER STERILE CONDITIONS. A TIMEOUT WAS PERFORMED WHERE LATERALITY AND THE SITE OF THE PROCEDURE WERE CHECKED AND CONFIRMED WITH EVERYONE IN THE ROOM. UNDER FLUOROSCOPIC GUIDANCE, THE TARGET POINT WAS SELECTED AT THE INTERLAMINAR LEVEL OF L5-S1. I CONFIRMED AGAIN WITH EVERYONE IN THE ROOM THE LATERALITY OF THE TARGET AT 1117. LIDOCAINE WAS USED TO NUMB THE SKIN AND THE SUBCUTANEOUS TISSUE BELOW IT. EPIDURAL EPIMED NEEDLE, 16-GAUGE, WAS ADVANCED UNDER FLUOROSCOPIC GUIDANCE AND FOLLOWING PATIENT FEEDBACK UNTIL THE EPIDURAL SPACE BY THE LOSS OF RESISTANCE TECHNIQUE. A 19-GAUGE EPIMED CATHETER WAS ADVANCED THROUGH THE NEEDLE AND THEN ADVANCED TOWARD THE INTERLAMINAR LEVEL OF L4-L5 UNDER FLUOROSCOPY AND FOLLOWING PATIENT FEEDBACK. ISOVUE-M DYE 30%, 0.25 ML, WAS INJECTED SHOWING ADEQUATE SPREAD OF THE DYE. THEN, A SOLUTION OF 3 ML OF NORMAL SALINE WITH DEPO-MEDROL 80 MG WAS INJECTED SLOWLY FOLLOWING PATIENT FEEDBACK. THE MEDICATIONS WERE VERIFIED WITH THE NURSE. THERE WAS NO EVIDENCE OF BLOOD, PARESTHESIA OR CEREBROSPINAL FLUID DURING THE PROCEDURE. THE PATIENT WAS SENT TO THE RECOVERY ROOM. THE PATIENT WAS MOVING THE EXTREMITIES AND DOING WELL. THERE WERE NO COMPLICATIONS DURING THE PROCEDURE. ESTIMATED BLOOD LOSS WAS LESS THAN 5 ML. FLUOROSCOPY TIME WAS 12 SECONDS POST PROCEDURE NOTE DEPENDING ON THE RESULTS, CONSIDER A TRANSFORAMINAL EPIDURAL. THE PATIENT WILL BE SEEN IN A FOLLOW UP IN THE NEXT FEW WEEKS. I AM LOOKING FOR LONG LASTING RELIEF FOR THE PATIENT WITH THIS INTERVENTION. INSTRUCTIONS WERE GIVEN, QUESTIONS WERE ANSWERED, AND THE PATIENT EXPRESSED UNDERSTANDING AND AGREES WITH THE PLAN. I, CHINYERE PERRY, DOCUMENTED THE ABOVE INFORMATION ACTING A SCRIBE FOR DR. CRAFT. I HAVE REVIEWED THE ABOVE DOCUMENT, WRITTEN BY CHINYERE AMARO, SENIOR INFORMATICA ETL DEVELOPER, AND I VERIFY THAT IT IS ACCURATE PROCEDURE CODES 93641 LUMBAR/SACRAL W/ IMAGING DISPOSITION & COMMUNICATION FOLLOW UP FOLLOW UP WITH LARD TUB WASHER (REASON: POST LUMBAR EPIDURAL WITH CATHETER) ELECTRONICALLY SIGNED BY KENDRA CRAFT MD, MD ON 02/27/2020 AT 04:30 PM EDT DISCLAIMER : THIS IS A VISIT SUMMARY EXTRACTED FROM THE [employer] CHART. IT IS NOT A COPY OF THE [employer] PROGRESS NOTE. ZINA
== END ==
LOC: M PAIN 09:30
PROVIDERS: ATTEND Anesthesiology
DX: M96.1 Postlaminectomy syndrome, not elsewhere classified (principal); K21.9 Gastro-esophageal reflux disease without esophagitis; E78.5 Hyperlipidemia, unspecified; E55.9 Vitamin D deficiency, unspecified; H04.123 Dry eye syndrome of bilateral lacrimal glands; G47.00 Insomnia, unspecified; F17.210 Nicotine dependence, cigarettes, uncomplicated; Z79.891 Long term (current) use of opiate analgesic; Z79.899 Other long term (current) drug therapy; Z88.2 Allergy status to sulfonamides; Z88.8 Allergy status to other drugs, medicaments and biological substances
CPT/HCPCS: 62323; J1030; Q9967

== ENCOUNTER → 2020-05-04 | Outpatient (REF) | payer MEDICARE ==
[~2020-05-04] MED LIST changes: -ISOVUE-M 300 61% 15ML VIAL As Ordered ONE; -LIDOCAINE 1% SDV 30ML VIAL As Ordered ONE; -diazePAM 5 MG TAB As Ordered ONE; -diphenhydrAMINE 25MG CAP As Ordered ONE; -methylPREDNISolone SUSP 40MG/ML 1ML VIAL (DEPO MEDROL) As Ordered ONE; -oxyCODONE 5MG TAB As Ordered ONE
[2020-05-04 13:34] LABS: BASO % 1.3 % (0.0-1.0); HEMATOCRIT 41.3 % (36.0-47.0); HEMOGLOBIN 12.9 g/dl (12.0-15.5); LYMPH # 0.9 10^3/uL (1.5-5.0); LYMPH % 29.1 % (24.0-44.0); MEAN CORPUSCULAR HEMOGLOBIN 30.5 pg (27.0-33.0); MEAN CORPUSCULAR HGB CONC 31.2 g/dl (32.0-36.5); MEAN CORPUSCULAR VOLUME 97.6 fl (80.0-96.0); MONO # 0.3 10^3/uL (0.0-0.8); MONO % 9.9 % (0.0-5.0); NEUTROPHILS # 1.8 10^3/uL (1.5-8.5); NEUTROPHILS % 58.4 % (36.0-66.0); PLATELET COUNT, AUTOMATED 202 10^3/uL (150-450); RED BLOOD COUNT 4.23 10^6/uL (4.00-5.40)
[2020-05-04 14:04] LABS: ALBUMIN 4.3 GM/DL (3.2-5.2); ALT/SGPT 41 U/L (12-78); BILIRUBIN,TOTAL 0.5 MG/DL (0.2-1.0); BLOOD UREA NITROGEN 7 MG/DL (7-18); CALCIUM LEVEL 9.3 MG/DL (8.8-10.2); CARBON DIOXIDE LEVEL 28 MEQ/L (21-32); CHLORIDE LEVEL 105 MEQ/L (98-107); CHOLESTEROL LEVEL 176 MG/DL (<200); CHOLESTEROL RISK RATIO 2.315 (<5); CREATININE FOR GFR 0.89 MG/DL (0.55-1.30); FERRITIN 11 NG/ML (8-252); GLOMERULAR FILTRATION RATE > 60.0 (>45); GLUCOSE, FASTING 94 MG/DL (70-100); HDL CHOLESTEROL 76 MG/DL (>40); LDL CHOLESTEROL 81 MG/DL (<100); NON-HDL-C 100 MG/DL; POTASSIUM SERUM 3.9 MEQ/L (3.5-5.1); SODIUM LEVEL 139 MEQ/L (136-145); TOTAL PROTEIN 7.4 GM/DL (6.4-8.2); TRIGLYCERIDES LEVEL 96 MG/DL (<150)
[2020-05-04 14:37] LABS: PTH INTACT 61.8 PG/ML (18.5-88.0); TOTAL 25(OH) VITAMIN D 70.7 NG/ML (30.0-100.0); VITAMIN B12 LEVEL 670 PG/ML (247-911)
[2020-05-04 14:43] LABS: HEMOGLOBIN A1c 5.3 %
== END ==
LOC: M SFHCPLAZ 09:52
PROVIDERS: ATTEND Family Medicine
DX: R73.01 Impaired fasting glucose (principal); D50.9 Iron deficiency anemia, unspecified; E55.9 Vitamin D deficiency, unspecified; E78.2 Mixed hyperlipidemia; E53.8 Deficiency of other specified B group vitamins; Z79.899 Other long term (current) drug therapy

== ENCOUNTER → 2020-05-14 | Outpatient (CLI) | payer MEDICARE ==
--- NOTE | 2020-05-15 00:24 | ECWPNPC ---
PATIENT NAME: LOGAN CRAVEN : 1960 GENDER: FEMALE VISIT DATE: 05/14/2020 DISCHARGE DATE: 05/14/20 1221 VISIT LOCKED DATE TIME: PHYSICIAN: KENDRA CRAFT MD PHYSICIAN PAGER NO: ACTIVE RESOURCE: KENDRA CRAFT MD REASON FOR APPOINTMENT 1. POST LUMBAR EPIDURAL WITH CATHETER HISTORY OF PRESENT ILLNESS GENERAL: 59-YEAR-OLD FEMALE PATIENT WITH A HISTORY OF CHRONIC LOW BACK AND MAINLY RIGHT LEG PAIN. THE PATIENT DESCRIBES THE PAIN ACHING AND SEVERE WITH A PAIN SCORE RANGING FROM 6-9/10. THIS IS AFFECTING HER ABILITY TO DO ACTIVITIES SUCH GOING [employer] SHOPPING AND CLEANING HER HOUSE. SHE HAS RECEIVED INTERLAMINAR EPIDURAL THAT GAVE HER ABOUT 2 MONTHS OF PAIN RELIEF. FALL RISK SCREENING: SCREENING :NO FALLS REPORTED IN THE LAST YEAR PAIN SCREENING: PATIENT HAS A COMPLAINT OF ACUTE OR CHRONIC PAIN :YES LOCATION OF PAIN:LOW BACK, LEG(S) INTENSITY OF PAIN (SCALE OF 1 TO 10):8 WHAT DOES YOUR PAIN FEEL LIKE:CONTINOUS, OTHER BURNING SENSATION WITH BURSITIS FLARE UPS, "CONSTANT PAIN." DURATION:CONTINOUS, CONSTANT, AWAKENS FROM SLEEP PAIN IS INCREASED BY:ACTIVITIES, PROLONGED STANDING PAIN IS DECREASED BY:USE OF PAIN MEDICATIONS, SITTING TREATMENT/MEDICATIONS USED TO MANAGE PAIN:OPIOIDS LEVEL OF RELIEF FROM PAIN TREATMENTS IN THE PAST:100% PAIN HAS INTERFERED WITH THE FOLLOWING:BATHING/DRESSING, WALKING ABILITY, HOUSEWORK, SLEEP, TOILETING PLAN/GOALS/TREATMENT/INTERVENTION/FOLLOW UP:SEE PLAN PAIN CENTER INTAKE QUESTIONS: DO YOU HAVE A HISTORY OF MRSA? :NO DO YOU TAKE A BLOOD THINNERS? :NO DO YOU HAVE ANY BLEEDING DISORDERS? :NO ANY NEW NUMBNESS OR WEAKNESS IN YOUR LEGS OR ARMS? :NO ANY PACEMAKER,DEFIBRILLATOR, OR DORSAL COLUMN STIMULATOR? :NO DO YOU HAVE ANY RASHES OR OPEN SORES? :NO ARE YOU ALLERGIC TO IV DYE? :NO ARE YOU DIABETIC? :NO ANY NEW PROBLEMS WITH YOUR MEDICATIONS? :NO HAVE YOU RECEIVED A VACCINE IN THE PAST 30 DAYS? :NO DO YOU PLAN TO RECEIVE A VACCINE IN THE NEXT 21 DAYS? :NO DO YOU TAKE ANY IMMUNOSUPPRESSIVE MEDICATIONS? :YES LEFLUNIMIDE FOR RA, WILL START ENBREL (Q WEEKLY) DO YOU HAVE SLEEP APNEA? :NO ANY RECENT HEAD INJURY? :NO DO YOU HAVE ANY NEW INFECTIONS? :NO IS THERE A CHANCE YOU COULD BE ? :NO ARE YOU BREAST FEEDING? :NO CURRENT MEDICATIONS TAKING VITAMIN D 2000 UNIT CAPSULE 1 TABLET ORALLY ONCE A DAY TAKING CANE . MISCELLANEOUS QUAD CANE _ QD R27 TAKING CALCIUM 600 + D 600-400 MG-UNIT TABLET 1 TABLET ORALLY ONCE A DAY TAKING ESOMEPRAZOLE MAGNESIUM 40 MG CAPSULE DELAYED RELEASE 1 CAPSULE ORALLY AC BID TAKING ELMIRON 100 MG CAPSULE 1 CAPSULE ON AN EMPTY STOMACH 1 TABLET THREE A DAY TAKING ATORVASTATIN CALCIUM 20 MG TABLET 1 TABLET ORALLY ONCE A DAY TAKING ELMIRON 100 MG CAPSULE 1 CAPSULE ON AN EMPTY STOMACH 1 TABLET THREE A DAY TAKING LEFLUNOMIDE 20 MG TABLET 1 TABLET ORALLY ONCE A DAY TAKING ENBREL SURECLICK 50 MG/ML SOLUTION AUTO-INJECTOR DIRECTED SUBCUTANEOUS ONCE A WEEK TAKING CYANOCOBALAMIN 500 MCG TABLET 1 TABLET ORALLY 1 EVERY 5 DAYS TAKING CARAFATE 1 GM TABLET 1 TABLET ON AN EMPTY STOMACH ORALLY AC TID TAKING CARISOPRODOL 350 MG TABLET 1 TABLET NEEDED ORALLY TID PRN, MDD 3 TAKING HYDROCODONE-ACETAMINOPHEN 5-325 MG TABLET 1 TABLET NEEDED ORALLY TID PRN MDD = 3 NOT-TAKING ESOMEPRAZOLE MAGNESIUM 40 MG CAPSULE DELAYED RELEASE TAKE ONE CAPSULE BY MOUTH TWICE A DAY BEFORE A MEAL MEDICATION LIST REVIEWED AND RECONCILED WITH THE PATIENT PAST MEDICAL HISTORY RA/OSTEOARTHRITIS/FIBROMYALGIA NICOTINE ADDICTION-08/2011 FEV1 2.5L (101%)/RATIO 97%-1 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 GERD/DYSPEPSIA-06/2016 NORMAL EGD/COLON/SB CAPSULE-R HYPERLIPIDEMIA 2B ENDOMETRIOSIS 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 SPENCER 2008 FOLLOWS WITH WOMAN TO WOMAN HISTORY OF TUBULAR ADENOMA-NORMAL COLONOSCOPY APRIL 2009 NORMAL COLONOSCOPY C - RANDOM BIOPSIES-[place] COLONOSCOPY 07/18/16 REINDL CERVICAL DJD STATUS POST MULTILEVEL FUSION-01/2010 MRI STABLE ACDF C BASELINE DJD ATROPHIC VAGINITIS OSTEOPENIA VITAMIN D DEFICIENCY CHRONIC SINUSITIS / NONE LATELY RECURRENT UTI / YEARS AGO CHRONIC DIARRHEA STATUS POST LAPAROSCOPIC CHOLECYSTECTOMY JULY 2009//[id number] CHRONIC DRY EYES MEMORY LOSS 2 INSOMNIA, WORK STRESS-12/2011 NORMAL MRI BRAIN S AND NORMAL WORKUP LUMBAR DJD-L2/3 BULGE C L IF HNP C L L2 COMPRESSION, L3/4 SEVERE CCS C B L3 COMPRESSION BY 03/2017 MRI LONG-TERM DISABILITY-TAKEN OOW 08/05/[address] BARAJAS, 01/2014 FILLED OUT LTD PAPERWORK FOR GUARDIAN-PATIENT DEFERRED WCE INSOMNIA, COOMORBID ALLERGIES METHOTREXATE (ANTI-RHEUMATIC): MIGRANES - SIDE EFFECTS CYMBALTA: RACING PLUSE, SHAKES - ALLERGY WELLBUTRIN: PALPITATIONS, SEVERE - ALLERGY SULFA (FOR ALLERGY USE ONLY): NAUSEA/VOMITING - ALLERGY LYRICA: PALPITATIONS - ALLERGY CELEXA: PALPITATIONS - SIDE EFFECTS ORENCIA: ANAPHYLAXIS - ALLERGY TOPICAL ALOE VERA: SEVERE ITCHING CANNOT TOLERATE ASA BASED PRODUCTS/ NSAIDS: HX STOMACH BLEED - CONTRAINDICATION SURGICAL HISTORY LAPAROSCOPY X2 CHRISTINE BTL 1981 TVH [address] SPENCER 2007 VAGINAL CUFF BX. IRMA CHANDLER NP 03/07 CHOLECYSTECTOMY 06/09 ACDF-C4-T1 10/06 R BREAST TWIZLY-[id number]-[id number] 09/2010 ABOVE L CTR-DR EAST 10/27/14 L4-L5 FUSION/LAMINECTOMY 09/2013 NORMAL EGD/COLON/SB CAPSULE-R 06/2016 FUSION C5 C6 1998 HYSTERECTOMY 1988 BENIGN MOLE REMOVAL 2018 FAMILY HISTORY FATHER: , DM, LUNG CANCER, CAD, DX ALZHEIMER, DIAGNOSED WITH OTHER MALIGNANT NEOPLASM OF UNSPECIFIED SITE MOTHER: , COPD SIBLINGS: BROTHER HTN,1/2 BROTHER DM SON(S): HTN PATERNAL GRAND FATHER: , CANCER, COLON PATERNAL GRAND MOTHER: COLON CANCER LATER YEARS MATERNAL UNCLE: PROSTATE CANCER 70'S ,LEUKEMIA IN HIS 50'S MATERNAL AUNT: ALIVE, HYPERLIPIDEMIA, COLON CANCER IN HER 60'S 2 BROTHER(S) , 1 SISTER(S) - HEALTHY. 1 SON(S) , 1 DAUGHTER(S) . PGM, MGF C COLON CANCER\\\\\\\\NMOM-GRAVES DISEASE\\\\\\\\NSON-SEIZURES, BRADYCARDIA-PACEMAKER, AFIB. SOCIAL HISTORY GENERAL: TOBACCO USE ARE YOU A:CURRENT SMOKER ARE YOU INTERESTED IN QUITTING?THINKING ABOUT QUITTING COUNSELED THE PATIENT ON SMOKING CESSATION, EDUCATION [id number]/15/2021 HOW MANY CIGARETTES A DAY DO YOU SMOKE?5 OR LESS HOW SOON AFTER YOU WAKE UP DO YOU SMOKE YOUR FIRST CIGARETTE?AFTER 60 MIN HOW OFTEN DO YOU SMOKE CIGARETTES?EVERY DAY PATIENT COUNSELED ON THE DANGERS OF TOBACCO USE AND URGED TO QUIT:05/14/2020 VAPORNO E-CIGARETTENO LATEX QUESTIONNAIRE LATEX ALLERGY : HAVE YOU EVER DEVELOPED ANY TYPE OF REACTION AFTER HANDLING LATEX PRODUCTS SUCH RUBBER GLOVES, CONDOMS, DIAPHRAGMS, BALLOONS, SOCKS, OR UNDERWEAR?NO LATEX ALLERGY : HAVE YOU EVER DEVELOPED ANY TYPE OF REACTION DURING OR AFTER DENTAL APPOINTMENT, VAGINAL/RECTAL EXAMINATION, SURGICAL PROCEDURE, OR ANY OTHER EXPOSURE?NO DATE ASKED : 02/23/2020 LATEX RISK : HAVE YOU EVER HAD ANY DIFFICULTY BREATHING OR HIVES AFTER EATING OR HANDLING ANY FRUITS, OR VEGETABLES; SUCH KIWI, BANANAS, STONE FRUITS, OR CHESTNUTSNO LATEX RISK : DO YOU HAVE A PREVIOUS PERSONAL HISTORY OF MORE THAN NINE SURGERIES, SPINA BIFIDA, OR REPEATED CATHERIZATIONS? NO LATEX RISK : ARE YOU FREQUENTLY EXPOSED TO LATEX PRODUCTS IN YOUR OCCUPATION?NO ALCOHOL SCREENING DID YOU HAVE A DRINK CONTAINING ALCOHOL IN THE PAST YEAR?YES HOW OFTEN DID YOU HAVE A DRINK CONTAINING ALCOHOL IN THE PAST YEAR?MONTHLY OR LESS (1 POINT) POINTS1 INTERPRETATIONNEGATIVE RECREATIONAL DRUG USE DRUG USE?NO CAFFEINE CAFFEINE USE?YES 2-3 DAILY SEXUAL HX HAD SEX IN THE LAST 12 MONTHS (VAGINAL, ORAL, OR ANAL)?NO HAVE YOU EVER HAD AN STD?NO HIV / HEP-C SCREENING HIV TEST OFFERED TO PATIENT:YES DATE OFFERED:06/28/2017 TEST ACCEPTED:NO HEP-C TEST OFFERED TO PATIENT:YES DATE OFFERED:06/28/2017 REASON:PATIENT DECLINED TEST ACCEPTED:NO REASON:PATIENT DECLINED SIKHISM [id number] NONE NO GNOSTICISM BELIEFS THAT WOULD IMPACT HEALTH CARE. LANGUAGE LANGUAGES SPOKEN:TURKMEN EDUCATION LEVEL OF EDUCATION:HIGH SCHOOL GED LEARNING BARRIERS / SPECIAL NEEDS CHANGE FROM LAST VISIT?NO BARRIERS TO LEARNING?NO HEARING IMPAIRED?NO TNITUS VISION IMPAIRED?YES COGNITIVELY IMPAIRED?NO :CORRECTIVE LENSES READINESS TO LEARN?YES LEARNING PREFERENCES?NO LEARNING CAPABILITIES PRESENT?YES EMOTIONAL BARRIERS?NO SPECIAL DEVICES?NO HYDROLOGIST NEEDED?NO DOMESTIC VIOLENCE DO YOU FEEL SAFE IN YOUR ENVIRONMENT?YES OCCUPATION: DISABLED. DIET: AVOIDS GREASY, FRIED FOODS, DAIRY.TRIES TO EAT SMALLER PORTIONS. EXERCISE: LOWER BACK EXERCISES, WALKS TOLERATED. MARITAL STATUS: .. OTHERS AT HOME: DAUGHTER. PAIN CLINIC PFS, CLERGY, PUBLIC HEALTH REFERRALS PFS REFERRAL NEEDED?NO CLERGY REFERRAL NEEDED?NO PUBLIC HEALTH REFERRAL NEEDED?NO HAS THE PATIENT BEEN EDUCATED REGARDING HIS/HER PLAN OF CARE?YES HAS THE PATIENT BEEN EDUCATED REGARDING PAIN, THE RISK FOR PAIN, THE IMPORTANCE OF EFFECTIVE PAIN MANAGEMENT, AND THE PAIN ASSESSMENT PROCESS?YES ADVANCE DIRECTIVE ADVANCE DIRECTIVE DISCUSSED WITH PATIENT:YES PT STATES SHE HAS A HEALTH CARE PROXY-RAH ROSARIO [phone] HOSPITALIZATION/MAJOR DIAGNOSTIC PROCEDURE SURGICAL RELATED REVIEW OF SYSTEMS CONSTITUTIONAL: ANY RECENT FEVER NO . CHILLS NO . WEIGHT CHANGE OF UNKNOWN REASONS NO . GASTROENTEROLOGY: NEW UNEXPLAINABLE CHANGES IN BOWEL CONTROL NO . CONSTIPATION NO . GENITOURINARY: ANY NEW CHANGE IN BLADDER CONTROL? NO . NEUROLOGY: NEW ONSET DIZZINESS OR NEUROLOGICAL CHANGES NOT MENTIONED NO . NEW NUMBNESS OR PAIN PATTERNS NOT MENTIONED AND PERTINENT TO TODAY'S VISIT NO . CARDIOLOGY: NEW CHEST PRESSURE NO . NEW CHEST PAIN NO . RESPIRATORY: UNEXPLAINABLE COUGH NO . NEW SHORTNESS OF BREATH NO . VITAL SIGNS WT 127.8 LBS, HT 64 IN, BMI 21.93 INDEX, BP 130/59 MM HG, HR 96 /MIN, RR 18 /MIN, TEMP 97.8 F, OXYGEN SAT % 97%, SAFE IN ENV? (Y/N) YES, NA INITIALS SC 10:56, REVIEWED BY: Purvi WILSON [employer]ODUCTION MACHINE SHOP SUPERVISOR. EXAMINATION GENERAL EXAMINATION: THE PATIENT IS ALERT, ORIENTED TIMES THREE AND COOPERATIVE. LUNGS ARE CLEAR TO AUSCULTATION. HEART SHOWS REGULAR RHYTHM, NO MURMURS AND NO GALLOPS. THE RIGHT LEG IS WEAKER THAN THE LEFT LEG ON FLEXION AND EXTENSION.STRAIGHT LEG RAISE IS POSITIVE FOR RADICULOPATHY ON THE RIGHT AT 50 DEGREES. LUMBOSACRAL MRI DATED 07/02/2019 SHOWS A FUSION AT L4-L5, DEGENERATIVE CHANGES AT MULTIPLE LEVELS AND BULGING DISC AT MULTIPLE LEVELS. 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 CRAVEN. I AM GOING TO REQUEST AUTHORIZATION FOR A RIGHT TRANSFORAMINAL EPIDURAL STEROID INJECTION L4-L5, L5-S1, BOOK AFTER APPROVED. I AM LOOKING FOR LONG LASTING PAIN RELIEF WITH THIS INTERVENTION. WE DISCUSSED THE PATIENT'S RHEUMATOID ARTHRITIS MEDICATIONS. THE PATIENT DOES NOT WANT TO STOP HER MEDICATIONS FOR 4 WEEKS TOTAL FOR THE INJECTIONS. SO THE PATIENT WILL STOP LEFLUNIMIDE 3 DAYS BEFORE AND START IT BACK UP 2 DAYS AFTER THE INJECTION. FOR THE ENBREL, SHE WILL STOP THAT FOR ONLY 1 WEEK. THE PATIENT REPORTS UNDERSTANDING AND AGREES WITH THE PLAN. I, CHINYERE AMARO, DOCUMENTED THE ABOVE INFORMATION ACTING A SCRIBE FOR DR. CRAFT. I HAVE REVIEWED THE ABOVE DOCUMENT, WRITTEN BY CHINYERE AMARO, GENERAL FOUNDRY WORKER, AND I VERIFY THAT IT IS ACCURATE. PROCEDURE CODES FA211 ESTABILISHED PATIENT [facility] CHARGE [id number] OFFICE/OUTPATIENT VISIT EST DISPOSITION & COMMUNICATION FOLLOW UP REQUEST AUTHORIZATION FOR A RIGHT TRANSFORAMINAL EPIDURAL STEROID INJECTION L4-L5, L5-S1 (REASON: REQUEST AUTHORIZATION FOR A RIGHT TRANSFORAMINAL EPIDURAL STEROID INJECTION L4-L5, L5-S1) ELECTRONICALLY SIGNED BY KENDRA CRAFT MD, MD ON 05/14/2020 AT 02:08 PM EST DISCLAIMER : THIS IS A VISIT SUMMARY EXTRACTED FROM THE [facility] CHART. IT IS NOT A COPY OF THE [facility] PROGRESS NOTE. MTDD
== END ==
LOC: M PAIN 10:45
PROVIDERS: ATTEND Anesthesiology
DX: G89.29 Other chronic pain (principal); M96.1 Postlaminectomy syndrome, not elsewhere classified; M51.16 Intervertebral disc disorders with radiculopathy, lumbar region; M79.7 Fibromyalgia; K21.9 Gastro-esophageal reflux disease without esophagitis; E78.5 Hyperlipidemia, unspecified; E55.9 Vitamin D deficiency, unspecified; J30.9 Allergic rhinitis, unspecified; F17.210 Nicotine dependence, cigarettes, uncomplicated; Z79.891 Long term (current) use of opiate analgesic; Z79.899 Other long term (current) drug therapy; Z88.2 Allergy status to sulfonamides; Z88.8 Allergy status to other drugs, medicaments and biological substances

== ENCOUNTER → 2020-05-22 | Outpatient (CLI) | payer MEDICARE | LOC: M LABSMTC 09:59 | PROVIDERS: ATTEND Anesthesiology | DX: Z20.822 Contact with and (suspected) exposure to COVID-19 (principal) ==

== ENCOUNTER → 2020-05-27 | Outpatient (CLI) | payer MEDICARE ==
[~2020-05-27] MED LIST changes: +BUPIVACAINE HCL 0.25% 30ML VIAL As Ordered ONE; +ISOVUE-M 300 61% 15ML VIAL As Ordered ONE; +LIDOCAINE 1% SDV 30ML VIAL As Ordered ONE; +TRIAMCINOLONE ACETONIDE SUSP 40 MG/ML VIAL (J3301) As Ordered ONE; +diazePAM 5MG TABLET As Ordered ONE; +diphenhydrAMINE 25MG CAP As Ordered ONE; +oxyCODONE 5MG TAB As Ordered ONE
--- NOTE | 2020-05-27 13:52 | REP ---
INDICATION: PAIN. COMPARISON: None. TECHNIQUE: Four views. 15.8 seconds of fluoroscopy time is reported. FINDINGS: A sequence of 4 last image hold fluoroscopically obtained spot radiograph(s) of the lumbar spine document(s) needle position(s) and contrast injection associated with injection procedure. IMPRESSION: Procedural imaging. <Electronically signed by Elan Rudolph > 05/27/20 [id number]
--- NOTE | 2020-06-01 02:54 | ECWPNPC ---
PATIENT NAME: LOGAN CRAVEN : 1960 GENDER: FEMALE VISIT DATE: 05/27/2020 DISCHARGE DATE: 05/27/20 1343 VISIT LOCKED DATE TIME: PHYSICIAN: KENDRA CRAFT MD PHYSICIAN PAGER NO: ACTIVE RESOURCE: KENDRA CRAFT MD REASON FOR APPOINTMENT 1. BILATERAL THERAPEUTIC LUMBAR FACET BLOCK L4-L5, L5-S1 HISTORY OF PRESENT ILLNESS FALL RISK SCREENING: SCREENING :NO FALLS REPORTED IN THE LAST YEAR PAIN SCREENING: PATIENT HAS A COMPLAINT OF ACUTE OR CHRONIC PAIN :YES LOCATION OF PAIN:LOW BACK, LEG(S) BILATERAL LEGS WITH RIGHT WORSE THAN LEFT INTENSITY OF PAIN (SCALE OF 1 TO 10):7 AVERAGE 7-8 WHAT DOES YOUR PAIN FEEL LIKE:CONTINOUS, TENDER, SORE DURATION:CONTINOUS, AWAKENS FROM SLEEP PAIN IS INCREASED BY:ACTIVITIES, PROLONGED STANDING PAIN IS DECREASED BY:USE OF PAIN MEDICATIONS MEDS ALONG WITH ALTERNATING ICE AND HEAT BRINGS THE PAIN DOWN SLIGHTLY NURSING NOTE: -. GENERAL: FEMALE PATIENT WITH A HISTORY OF CHRONIC BACK PAIN. THE PATIENT DESCRIBES THE PAIN ACHING AND SEVERE WITH A PAIN SCORE RANGING FROM 6-9/10 IN THE BACK. SHE HAS BEEN SUFFERING FROM THIS FOR MANY YEARS. SHE IS LOOKING FOR ASSISTANCES. SHE HAS TRIED MEDIATION MANAGEMENT AND INJECTION THERAPY IN THE PAST. PAIN CENTER INTAKE QUESTIONS: DO YOU HAVE A HISTORY OF MRSA? :NO DO YOU TAKE A BLOOD THINNERS? :NO DO YOU HAVE ANY BLEEDING DISORDERS? :NO ANY NEW NUMBNESS OR WEAKNESS IN YOUR LEGS OR ARMS? :NO ANY PACEMAKER,DEFIBRILLATOR, OR DORSAL COLUMN STIMULATOR? :NO DO YOU HAVE ANY RASHES OR OPEN SORES? :NO ARE YOU ALLERGIC TO IV DYE? :NO ARE YOU DIABETIC? :NO ANY NEW PROBLEMS WITH YOUR MEDICATIONS? :NO HAVE YOU RECEIVED A VACCINE IN THE PAST 30 DAYS? :NO DO YOU PLAN TO RECEIVE A VACCINE IN THE NEXT 21 DAYS? :NO DO YOU TAKE ANY IMMUNOSUPPRESSIVE MEDICATIONS? :YES EMBREL, LEFLUNOMIDE ANY HISTORY OF SEIZURES? :NO ANY HISTORY OF CARDIAC ISSUES OR EVENTS? :NO DO YOU HAVE SLEEP APNEA? :NO ANY RECENT HEAD INJURY? :NO DO YOU HAVE ANY NEW INFECTIONS? :NO IS THERE A CHANCE YOU COULD BE ? :NO ARE YOU BREAST FEEDING? :NO WHEN DID YOU LAST EAT? : -05/26 1800 WHEN DID YOU LAST DRINK? : -05/27 0700 WHAT DID YOU LAST DRINK? : -WATER NAME OF PERSON DRIVING YOU HOME? : KATIE DO YOU HAVE ANY OTHER QUESTIONS OR CONCERNS? : NONE CURRENT MEDICATIONS TAKING VITAMIN D 2000 UNIT CAPSULE 1 TABLET ORALLY ONCE A DAY TAKING CANE . MISCELLANEOUS QUAD CANE _ QD R27 TAKING CALCIUM 600 + D 600-400 MG-UNIT TABLET 1 TABLET ORALLY ONCE A DAY TAKING ESOMEPRAZOLE MAGNESIUM 40 MG CAPSULE DELAYED RELEASE 1 CAPSULE ORALLY AC BID TAKING ELMIRON 100 MG CAPSULE 1 CAPSULE ON AN EMPTY STOMACH 1 TABLET THREE A DAY, NOTES: 05/27 TAKING ATORVASTATIN CALCIUM 20 MG TABLET 1 TABLET ORALLY ONCE A DAY TAKING LEFLUNOMIDE 20 MG TABLET 1 TABLET ORALLY ONCE A DAY, NOTES: 05/24/20 TAKING ENBREL SURECLICK 50 MG/ML SOLUTION AUTO-INJECTOR DIRECTED SUBCUTANEOUS ONCE A WEEK, NOTES: 05/16 TAKING CYANOCOBALAMIN 500 MCG TABLET 1 TABLET ORALLY 1 EVERY 5 DAYS TAKING CARAFATE 1 GM TABLET 1 TABLET ON AN EMPTY STOMACH ORALLY AC TID TAKING CARISOPRODOL 350 MG TABLET 1 TABLET NEEDED ORALLY TID PRN, MDD 3, NOTES: 05/260 TAKING HYDROCODONE-ACETAMINOPHEN 5-325 MG TABLET 1 TABLET NEEDED ORALLY TID PRN MDD = 3, NOTES: 05/27 0700 TAKING ESCITALOPRAM OXALATE 10 MG TABLET 1 TABLET ORALLY ONCE A DAY MEDICATION LIST REVIEWED AND RECONCILED WITH THE PATIENT PAST MEDICAL HISTORY RA/OSTEOARTHRITIS/FIBROMYALGIA NICOTINE ADDICTION-08/2011 FEV1 2.5L (101%)/RATIO 97%-1 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 GERD/DYSPEPSIA-06/2016 NORMAL EGD/COLON/SB CAPSULE-R HYPERLIPIDEMIA 2B ENDOMETRIOSIS 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 SPENCER 2008 FOLLOWS WITH WOMAN TO WOMAN HISTORY OF TUBULAR ADENOMA-NORMAL COLONOSCOPY APRIL 2009 NORMAL COLONOSCOPY C - RANDOM BIOPSIES-[place] COLONOSCOPY 07/18/16 REINDL CERVICAL DJD STATUS POST MULTILEVEL FUSION-01/2010 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 BARAJAS, 01/2014 FILLED OUT LTD PAPERWORK FOR GUARDIAN-PATIENT DEFERRED WCE INSOMNIA, COOMORBID ANXIETY ALLERGIES METHOTREXATE (ANTI-RHEUMATIC): MIGRANES - SIDE EFFECTS CYMBALTA: RACING PLUSE, SHAKES - ALLERGY WELLBUTRIN: PALPITATIONS, SEVERE - ALLERGY SULFA (FOR ALLERGY USE ONLY): NAUSEA/VOMITING - ALLERGY LYRICA: PALPITATIONS - ALLERGY CELEXA: PALPITATIONS - SIDE EFFECTS ORENCIA: ANAPHYLAXIS - ALLERGY TOPICAL ALOE VERA: SEVERE ITCHING CANNOT TOLERATE ASA BASED PRODUCTS/ NSAIDS: HX STOMACH BLEED - CONTRAINDICATION SURGICAL HISTORY LAPAROSCOPY X2 CHRISTINE BTL 1982 TVH [address] SPENCER 2008 VAGINAL CUFF BX. IRMA CHANDLER NP 03/07 CHOLECYSTECTOMY 06/09 ACDF-C4-T1 10/06 R BREAST [id number]-[id number] 09/2010 ABOVE L CTR-DR EAST 10/27/14 L4-L5 FUSION/LAMINECTOMY 09/2013 NORMAL EGD/COLON/SB CAPSULE-R 06/2016 FUSION C5 C6 1998 HYSTERECTOMY 1988 BENIGN MOLE REMOVAL 2018 FAMILY HISTORY FATHER: , DM, LUNG CANCER, CAD, DX ALZHEIMER, DIAGNOSED WITH OTHER MALIGNANT NEOPLASM OF UNSPECIFIED SITE MOTHER: , COPD SIBLINGS: BROTHER HTN,1/2 BROTHER DM SON(S): HTN PATERNAL GRAND FATHER: , CANCER, COLON PATERNAL GRAND MOTHER: COLON CANCER LATER YEARS MATERNAL UNCLE: PROSTATE CANCER 70'S ,LEUKEMIA IN HIS 50'S MATERNAL AUNT: ALIVE, HYPERLIPIDEMIA, COLON CANCER IN HER 60'S 2 BROTHER(S) , 1 SISTER(S) - HEALTHY. 1 SON(S) , 1 DAUGHTER(S) . PGM, MGF C COLON CANCER\\\\NMOM-GRAVES DISEASE\\\\NSON-SEIZURES, BRADYCARDIA-PACEMAKER, AFIB. SOCIAL HISTORY GENERAL: TOBACCO USE ARE YOU A:CURRENT SMOKER ARE YOU INTERESTED IN QUITTING?THINKING ABOUT QUITTING COUNSELED THE PATIENT ON SMOKING CESSATION, EDUCATION [id number]/15/2021 HOW MANY CIGARETTES A DAY DO YOU SMOKE?5 OR LESS HOW SOON AFTER YOU WAKE UP DO YOU SMOKE YOUR FIRST CIGARETTE?AFTER 60 MIN HOW OFTEN DO YOU SMOKE CIGARETTES?EVERY DAY PATIENT COUNSELED ON THE DANGERS OF TOBACCO USE AND URGED TO QUIT:05/26/2020 VAPORNO E-CIGARETTENO LATEX QUESTIONNAIRE LATEX ALLERGY : HAVE YOU EVER DEVELOPED ANY TYPE OF REACTION AFTER HANDLING LATEX PRODUCTS SUCH RUBBER GLOVES, CONDOMS, DIAPHRAGMS, BALLOONS, SOCKS, OR UNDERWEAR?NO LATEX ALLERGY : HAVE YOU EVER DEVELOPED ANY TYPE OF REACTION DURING OR AFTER DENTAL APPOINTMENT, VAGINAL/RECTAL EXAMINATION, SURGICAL PROCEDURE, OR ANY OTHER EXPOSURE?NO DATE ASKED : 02/23/2020 LATEX RISK : HAVE YOU EVER HAD ANY DIFFICULTY BREATHING OR HIVES AFTER EATING OR HANDLING ANY FRUITS, OR VEGETABLES; SUCH KIWI, BANANAS, STONE FRUITS, OR CHESTNUTSNO LATEX RISK : DO YOU HAVE A PREVIOUS PERSONAL HISTORY OF MORE THAN NINE SURGERIES, SPINA BIFIDA, OR REPEATED CATHERIZATIONS? NO LATEX RISK : ARE YOU FREQUENTLY EXPOSED TO LATEX PRODUCTS IN YOUR OCCUPATION?NO ALCOHOL SCREENING DID YOU HAVE A DRINK CONTAINING ALCOHOL IN THE PAST YEAR?YES HOW OFTEN DID YOU HAVE A DRINK CONTAINING ALCOHOL IN THE PAST YEAR?MONTHLY OR LESS (1 POINT) POINTS1 INTERPRETATIONNEGATIVE RECREATIONAL DRUG USE DRUG USE?NO CAFFEINE CAFFEINE USE?YES 2-3 DAILY SEXUAL HX HAD SEX IN THE LAST 12 MONTHS (VAGINAL, ORAL, OR ANAL)?NO HAVE YOU EVER HAD AN STD?NO HIV / HEP-C SCREENING HIV TEST OFFERED TO PATIENT:YES DATE OFFERED:06/28/2017 TEST ACCEPTED:NO HEP-C TEST OFFERED TO PATIENT:YES DATE OFFERED:06/28/2017 REASON:PATIENT DECLINED TEST ACCEPTED:NO REASON:PATIENT DECLINED LUTHERAN [id number] NONE NO SAMARITAN BELIEFS THAT WOULD IMPACT HEALTH CARE. LANGUAGE LANGUAGES SPOKEN:SLOVENIAN EDUCATION LEVEL OF EDUCATION:HIGH SCHOOL GED LEARNING BARRIERS / SPECIAL NEEDS CHANGE FROM LAST VISIT?NO BARRIERS TO LEARNING?NO HEARING IMPAIRED?NO TNITUS VISION IMPAIRED?YES :CORRECTIVE LENSES COGNITIVELY IMPAIRED?NO READINESS TO LEARN?YES LEARNING PREFERENCES?NO LEARNING CAPABILITIES PRESENT?YES EMOTIONAL BARRIERS?NO SPECIAL DEVICES?NO PRESIDENT COLLEGE OR UNIVERSITY NEEDED?NO DOMESTIC VIOLENCE DO YOU FEEL SAFE IN YOUR ENVIRONMENT?YES OCCUPATION: DISABLED. DIET: AVOIDS GREASY, FRIED FOODS, DAIRY.TRIES TO EAT SMALLER PORTIONS. EXERCISE: LOWER BACK EXERCISES, WALKS TOLERATED. MARITAL STATUS: .. OTHERS AT HOME: DAUGHTER. - PFS REFERRAL NEEDED?NO CLERGY REFERRAL NEEDED?NO PUBLIC HEALTH REFERRAL NEEDED?NO HAS THE PATIENT BEEN EDUCATED REGARDING HIS/HER PLAN OF CARE?YES HAS THE PATIENT BEEN EDUCATED REGARDING PAIN, THE RISK FOR PAIN, THE IMPORTANCE OF EFFECTIVE PAIN MANAGEMENT, AND THE PAIN ASSESSMENT PROCESS?YES ADVANCE DIRECTIVE ADVANCE DIRECTIVE DISCUSSED WITH PATIENT:YES PT STATES SHE HAS A HEALTH CARE PROXY-RAH ROSARIO [phone] HOSPITALIZATION/MAJOR DIAGNOSTIC PROCEDURE SURGICAL RELATED REVIEW OF SYSTEMS CONSTITUTIONAL: ANY RECENT FEVER NO . CHILLS NO . WEIGHT CHANGE OF UNKNOWN REASONS NO . GASTROENTEROLOGY: NEW UNEXPLAINABLE CHANGES IN BOWEL CONTROL NO . CONSTIPATION NO . GENITOURINARY: ANY NEW CHANGE IN BLADDER CONTROL? NO . NEUROLOGY: NEW ONSET DIZZINESS OR NEUROLOGICAL CHANGES NOT MENTIONED NO . NEW NUMBNESS OR PAIN PATTERNS NOT MENTIONED AND PERTINENT TO TODAY'S VISIT NO . CARDIOLOGY: NEW CHEST PRESSURE NO . NEW CHEST PAIN NO . RESPIRATORY: UNEXPLAINABLE COUGH NO . NEW SHORTNESS OF BREATH NO . VITAL SIGNS WT 126.6 LBS, HT 64 IN, BMI 21.73 INDEX, BP 143/66 MM HG, HR 101 /MIN, RR 16 /MIN, TEMP 97.6 F, OXYGEN SAT % 98%, SAFE IN ENV? (Y/N) YES, NA INITIALS SC 09:53, REVIEWED BY: TIFFANIE RN. EXAMINATION GENERAL EXAMINATION: THE PATIENT IS ALERT, ORIENTED TIMES THREE AND COOPERATIVE. LUNGS ARE CLEAR TO AUSCULTATION. HEART SHOWS REGULAR RHYTHM, NO MURMURS AND NO GALLOPS. TENDERNESS IN THE RIGHT AND LEFT FACETS. LUMBAR MRI SHOWS POST LAMINECTOMY CHANGES. ASSESSMENTS SPONDYLOSIS WITHOUT MYELOPATHY OR RADICULOPATHY, LUMBAR REGION - M47.816 (PRIMARY) SPONDYLOSIS WITHOUT MYELOPATHY OR RADICULOPATHY, LUMBOSACRAL REGION - M47.817 TREATMENT SPONDYLOSIS WITHOUT MYELOPATHY OR RADICULOPATHY, LUMBAR REGION [facility] FACET BLOCK (PAIN)[id number] MEDICATION: VALIUM TAB 10MG ORALLY (DIAZEPAM)JEANINE ROSADO 05/27/2020 12:01:47 PM > VERIFIED MICAHAVA 05/27/2020 12:04:43 PM > ADMINISTERED MEDICATION: OXYCODONE HCL TAB 10MG ORALLYJEANINE ROSADO 05/27/2020 12:02:01 PM > VERIFIED MICAHAVA 05/27/2020 12:05:23 PM > ADMINISTERED COMPLETION OF PROCEDURAL VISIT WHEN MEETS CRITERIA MEDICATION: (PAIN) BENADRYL TAB 25MG ORALLY (DIPHENHYDRAMINE)JEANINE ROSADO 05/27/2020 12:02:15 PM > VERIFIED AVA OBRIEN 05/27/2020 12:05:38 PM > ADMINISTERED CLINICAL NOTES: I DISCUSSED ALTERNATIVES WITH MS. CRAVEN. WE AGREE ON MOVING FORWARD WITH A BILATERAL THERAPEUTIC LUMBAR FACET BLOCK L4-L5, L5-S1. THE PATIENT REPORTS UNDERSTANDING AND AGREES WITH THE PLAN. I, CHINYERE AMARO, DOCUMENTED THE ABOVE INFORMATION ACTING A SCRIBE FOR DR. CRAFT. I HAVE REVIEWED THE ABOVE DOCUMENT, WRITTEN BY CHINYERE AMARO, TIRE CARE MANAGER, AND I VERIFY THAT IT IS ACCURATE. SPONDYLOSIS WITHOUT MYELOPATHY OR RADICULOPATHY, LUMBOSACRAL REGION [facility] FACET BLOCK (PAIN)[id number] OTHERS CLINICAL NOTES: 05/26/20 1824 PRE-PROCEDURE CALL COMPLETED. PT DENIES ANY CHANGES IN SURGICAL, HOSPITALIZATIONS OR FAMILY MEDICAL HISTORY. Sigrid FRAIRE RN . PROCEDURES PAIN NURSING RECORD PROCEDURE IN ROOM 1230, PHYSICIAN IN ROOM 1250, START 1255, FINISH 1301, PHYSICIAN OUT OF ROOM 1303, OUT OF ROOM 1312, ECG NORMAL SINUS, PATIENT SHIELDED YES, SAFETY STRAP YES, PREP CHLOROPREP BY Lito RAMIREZ RN, DRESSING TEGADERM BY DR CRAFT LOC: AVA OBRIEN 05/27/2020 12:16:27 PM > , 1. ALERT, ORIENTED RESP: AVA OBRIEN 05/27/2020 12:16:31 PM > , 1. REGULAR, NO DYSPNEA COLOR: AVA OBRIEN 05/27/2020 12:16:44 PM > , 1. PINK SKIN: AVA OBRIEN 05/27/2020 12:16:52 PM > , 1. WARM, DRY POSITION: AVA OBRIEN 05/27/2020 12:36:24 PM > , 1. PRONE VITALS: AVA OBRIEN 05/27/2020 12:35:32 PM > 139/65 HR 78 16 97% R/A , AVA OBRIEN 05/27/2020 12:50:31 PM > 122/60 HR 75 16 93% R/A , AVA OBRIEN 05/27/2020 1:05:02 PM > 120/62 HR 74 16 94% R/A , AVA OBRIEN 05/27/2020 1:20:38 PM > 137/65 HR 80 16 97% R/A COMPLETION OF PROCEDURE APPOINTMENT: POST PAIN 2, DRESSING SITE DRY AND INTACT, IV N/A, GAIT STEADY, TEACHING COMPLETED, PATIENT ACKNOWLEDGES UNDERSTANDING YES, PROCEDURE APPOINTMENT COMPLETED AT 0128 PN LUMBAR FACET BLOCK THERAPEUTIC PRE PROCEDURE DIAGNOSIS LUMBAR SPONDYLOSIS, LUMBOSACRAL SPONDYLOSIS POST PROCEDURE DIAGNOSIS LUMBAR SPONDYLOSIS, LUMBOSACRAL SPONDYLOSIS PROCEDURE BILATERAL L4-L5 AND BILATERAL L5-S1 LUMBAR FACET THERAPEUTIC BLOCK SURGEON DR. KENDRA CRAFT SHRIMP PICKER NONE ANESTHESIA LOCAL PRE PROCEDURE NOTE THE PATIENT HAS A HISTORY OF CHRONIC LOW BACK PAIN. I EVALUATED THE PATIENT AND REVIEWED THE CHART. I WENT OVER THE RISKS, ALTERNATIVES, AND BENEFITS ASSOCIATED WITH THIS PROCEDURE. THE PATIENT WOULD LIKE TO PROCEED AND GIVES CONSENT TO PERFORM THE PROCEDURE. THE PATIENT DENIES UNEXPLAINABLE WEIGHT LOSS, FEVER, CHILLS, OR NEW CHANGES IN URINARY OR BOWEL CONTROL. THE PATIENT IS COVID-19 NEGATIVE DESCRIPTION OF PROCEDURE THE PATIENT WAS BROUGHT TO THE PROCEDURE ROOM AND PLACED IN THE PRONE POSITION. THE LUMBOSACRAL AREA WAS CLEANED WITH CHLORAPREP SOLUTION AND DRAPED ASEPTICALLY. THE PROCEDURE WAS DONE UNDER STERILE CONDITIONS. A TIMEOUT WAS PERFORMED WHERE THE CONSENTED SITE WAS VERIFIED WITH EVERYONE IN THE ROOM. UNDER FLUOROSCOPIC GUIDANCE, THE TARGET POINT WAS SELECTED AT THE RIGHT AND LEFT L4-L5 AND RIGHT AND LEFT L5-S1 FACET JOINTS. TARGET POINT WAS SELECTED AFTER LATERAL ROTATION AND TILT OF THE MAGNIFIER OF THE C-ARM. I CONFIRMED AGAIN THE SITE OF THE TARGET. LIDOCAINE 0.5% WAS USED TO NUMB THE SKIN AND THE SUBCUTANEOUS TISSUE BELOW IT. SPINAL NEEDLES, 22-GAUGE, WERE ADVANCED UNDER FLUOROSCOPIC GUIDANCE AND FOLLOWING PATIENT FEEDBACK UNTIL THE TARGETS WERE TOUCHED. THE POSITION OF THE NEEDLES WAS VERIFIED WITH AP AND LATERAL VIEWS. AFTER PROPER POSITION OF THE NEEDLES WAS ACHIEVED, ISOVUE-M DYE 30%, 0.1 ML, WAS INJECTED SHOWING ADEQUATE SPREAD OF THE DYE. KENALOG 10 MG WAS INJECTED AT EACH SITE. THEN, A SOLUTION OF 1.0 ML OF BUPIVACAINE 0.125% OF WAS USED TO FLUSH EACH SITE. THE MEDICATION WAS VERIFIED WITH THE NURSE. THERE WAS NO EVIDENCE OF BLOOD, PARESTHESIA OR CEREBROSPINAL FLUID DURING THE PROCEDURE. THE PATIENT WAS SENT TO THE RECOVERY ROOM. THE PATIENT WAS MOVING THE EXTREMITIES AND DOING WELL. THERE WERE NO COMPLICATIONS DURING THE PROCEDURE. ESTIMATED BLOOD LOSS WAS LESS THAN 5 ML. FLUOROSCOPY TIME WAS 15 SECONDS POST PROCEDURE NOTE DEPENDING ON THE RESULTS, CONSIDER A RIGHT TRANSFORAMINAL EPIDURAL STEROID INJECTION L4-L5, L5-S1, HOLD ELMIRON FOR 5 DAYS. THE PATIENT WILL BE SEEN IN A FOLLOW UP IN THE NEXT FEW WEEKS. I AM LOOKING FOR LONG LASTING RELIEF FOR THE PATIENT WITH THIS INTERVENTION. INSTRUCTIONS WERE GIVEN, QUESTIONS WERE ANSWERED, AND THE PATIENT EXPRESSED UNDERSTANDING AND AGREES WITH THE PLAN. I, CHINYERE AMARO, DOCUMENTED THE ABOVE INFORMATION ACTING A SCRIBE FOR DR. CRAFT. I HAVE REVIEWED THE ABOVE DOCUMENT, WRITTEN BY CHINYERE AMARO, TIRE CARE MANAGER, AND I VERIFY THAT IT IS ACCURATE PROCEDURE CODES [id number] INJ PARAVERT F JNT L/S 1 LEV, MODIFIERS: 50 [id number] INJ PARAVERT F JNT L/S 2 LEV, MODIFIERS: 50 DISPOSITION & COMMUNICATION FOLLOW UP FOLLOW UP WITH CABLE INSTALLER (REASON: POST BILATERAL THERAPEUTIC LUMBAR FACET BLOCK L4-L5, L5-S1) ELECTRONICALLY SIGNED BY KENDRA CRAFT MD, MD ON 05/31/2020 AT 02:35 PM EST DISCLAIMER : THIS IS A VISIT SUMMARY EXTRACTED FROM THE [employer] CHART. IT IS NOT A COPY OF THE [employer] PROGRESS NOTE. MTDIsh
== END ==
LOC: M PAIN 10:00
PROVIDERS: ATTEND Anesthesiology
DX: M47.816 Spondylosis without myelopathy or radiculopathy, lumbar region (principal); M47.817 Spondylosis without myelopathy or radiculopathy, lumbosacral region; G89.29 Other chronic pain; M79.7 Fibromyalgia; K21.9 Gastro-esophageal reflux disease without esophagitis; E78.5 Hyperlipidemia, unspecified; E55.9 Vitamin D deficiency, unspecified; K58.0 Irritable bowel syndrome with diarrhea; F17.210 Nicotine dependence, cigarettes, uncomplicated; G47.00 Insomnia, unspecified; F41.9 Anxiety disorder, unspecified; H04.123 Dry eye syndrome of bilateral lacrimal glands; Z79.891 Long term (current) use of opiate analgesic; Z79.899 Other long term (current) drug therapy; Z88.2 Allergy status to sulfonamides; Z88.8 Allergy status to other drugs, medicaments and biological substances
CPT/HCPCS: 64493; 64494; J3301; Q9967

== ENCOUNTER → 2020-06-02 | Outpatient (CLI) | payer MEDICARE ==
[~2020-06-02] MED LIST changes: -BUPIVACAINE HCL 0.25% 30ML VIAL As Ordered ONE; -ISOVUE-M 300 61% 15ML VIAL As Ordered ONE; -LIDOCAINE 1% SDV 30ML VIAL As Ordered ONE; -TRIAMCINOLONE ACETONIDE SUSP 40 MG/ML VIAL (J3301) As Ordered ONE; -diazePAM 5MG TABLET As Ordered ONE; -diphenhydrAMINE 25MG CAP As Ordered ONE; -oxyCODONE 5MG TAB As Ordered ONE
[2020-06-02 14:31] LABS: FREE THYROXINE INDEX 3.2 % (1.3-4.8); THYROID STIMULATING HORMONE 1.48 uIU/ML (0.358-3.740); THYROXINE (T4) 10.8 UG/DL (4.5-12.0)
[2020-06-02 14:35] LABS: TOTAL T3 132.1 NG/DL (60.0-181.0)
[2020-06-03 13:07] LABS: SSA SJOGRENS A <0.2 AI (0.0-0.9); SSB SJOGRENS B <0.2 AI (0.0-0.9)
== END ==
LOC: M PLALAB 09:58
PROVIDERS: ATTEND Ophthalmology
DX: H16.223 Keratoconjunctivitis sicca, not specified as Sjogren's, bilateral (principal); F43.10 Post-traumatic stress disorder, unspecified; F41.1 Generalized anxiety disorder; Z79.899 Other long term (current) drug therapy

== ENCOUNTER → 2020-06-10 | Outpatient (CLI) | payer MEDICARE ==
--- NOTE | 2020-06-18 02:12 | ECWPNPC ---
PATIENT NAME: LOGAN CRAVEN : 1960 GENDER: FEMALE VISIT DATE: 06/10/2020 DISCHARGE DATE: 06/10/20 1204 VISIT LOCKED DATE TIME: PHYSICIAN: ANDREA ELIAS PHYSICIAN PAGER NO: ACTIVE RESOURCE: ANDREA ELIAS REASON FOR APPOINTMENT 1. POST BILATERAL THERAPEUTIC LUMBAR FACET BLOCK L4-L5, L5-S1 HISTORY OF PRESENT ILLNESS GENERAL: HERE FOR F/U OF CHRONIC LOW BACK PAIN WITH BILATERAL LEG RADICULAR SYMPTOMS RIGHT >LEFT.HAD BILATERAL LFBT L4/5-L5/S1 ON 05/27/20.HAD SIGNIFICANT IMPROVEMENT IN PAIN FOR SEVERAL WEEKS THEN PAIN RETURNED TO BASELINE.DR. 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 FALL RISK SCREENING: SCREENING :NO FALLS REPORTED IN THE LAST YEAR PAIN SCREENING: PATIENT HAS A COMPLAINT OF ACUTE OR CHRONIC PAIN :YES LOCATION OF PAIN:LOW BACK DOWN THE OUTSIDE OF RIGHT LEG GOING INTO THE TOE, AND LEFT LEG KYRA TO KNEE INTENSITY OF PAIN (SCALE OF 1 TO 10):7 WHAT DOES YOUR PAIN FEEL LIKE:CONTINOUS DURATION:CONTINOUS, CONSTANT, ALL DAY PAIN IS INCREASED BY:ACTIVITIES, PROLONGED STANDING PAIN IS DECREASED BY:OTHERS RESTING AND HEAT NURSING NOTE: -. PAIN CENTER INTAKE QUESTIONS: DO YOU HAVE A HISTORY OF MRSA? :NO DO YOU TAKE A BLOOD THINNERS? :NO DO YOU HAVE ANY BLEEDING DISORDERS? :NO ANY NEW NUMBNESS OR WEAKNESS IN YOUR LEGS OR ARMS? :NO ANY PACEMAKER,DEFIBRILLATOR, OR DORSAL COLUMN STIMULATOR? :NO DO YOU HAVE ANY RASHES OR OPEN SORES? :NO ARE YOU ALLERGIC TO IV DYE? :NO ARE YOU DIABETIC? :NO ANY NEW PROBLEMS WITH YOUR MEDICATIONS? :NO HAVE YOU RECEIVED A VACCINE IN THE PAST 30 DAYS? :NO DO YOU PLAN TO RECEIVE A VACCINE IN THE NEXT 21 DAYS? :NO DO YOU NEED ANY PRESCRIPTION? :NO DO YOU TAKE ANY IMMUNOSUPPRESSIVE MEDICATIONS? :NO IS THERE A CHANCE YOU COULD BE ? :NO ARE YOU BREAST FEEDING? :NO CURRENT MEDICATIONS TAKING VITAMIN D 2000 UNIT CAPSULE 1 TABLET ORALLY ONCE A DAY TAKING CANE . MISCELLANEOUS QUAD CANE _ QD R27 TAKING CALCIUM 600 + D 600-400 MG-UNIT TABLET 1 TABLET ORALLY ONCE A DAY TAKING ESOMEPRAZOLE MAGNESIUM 40 MG CAPSULE DELAYED RELEASE 1 CAPSULE ORALLY AC BID TAKING ELMIRON 100 MG CAPSULE 1 CAPSULE ON AN EMPTY STOMACH 1 TABLET THREE A DAY, NOTES: 05/27 TAKING ATORVASTATIN CALCIUM 20 MG TABLET 1 TABLET ORALLY ONCE A DAY TAKING LEFLUNOMIDE 20 MG TABLET 1 TABLET ORALLY ONCE A DAY, NOTES: 05/24/20 TAKING ENBREL SURECLICK 50 MG/ML SOLUTION AUTO-INJECTOR DIRECTED SUBCUTANEOUS ONCE A WEEK, NOTES: 05/16 TAKING CYANOCOBALAMIN 500 MCG TABLET 1 TABLET ORALLY 1 EVERY 5 DAYS TAKING CARAFATE 1 GM TABLET 1 TABLET ON AN EMPTY STOMACH ORALLY AC TID TAKING CARISOPRODOL 350 MG TABLET 1 TABLET NEEDED ORALLY TID PRN, MDD 3, NOTES: 05/26 2130 TAKING HYDROCODONE-ACETAMINOPHEN 5-325 MG TABLET 1 TABLET NEEDED ORALLY TID PRN MDD = 3, NOTES: 05/27 0700 TAKING ESCITALOPRAM OXALATE 10 MG TABLET 1 TABLET ORALLY ONCE A DAY MEDICATION LIST REVIEWED AND RECONCILED WITH THE PATIENT PAST MEDICAL HISTORY RA/OSTEOARTHRITIS/FIBROMYALGIA NICOTINE ADDICTION-08/2011 FEV1 2.5L (101%)/RATIO 97%-1 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 GERD/DYSPEPSIA-06/2016 NORMAL EGD/COLON/SB CAPSULE-R HYPERLIPIDEMIA 2B ENDOMETRIOSIS 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 SPENCER 2008 FOLLOWS WITH WOMAN TO WOMAN HISTORY OF TUBULAR ADENOMA-NORMAL COLONOSCOPY APRIL 2009 NORMAL COLONOSCOPY C - RANDOM BIOPSIES-[place] COLONOSCOPY 07/18/16 REINDL 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 BARAJAS, 01/2014 FILLED OUT LTD PAPERWORK FOR GUARDIAN-PATIENT DEFERRED WCE INSOMNIA, COOMORBID ANXIETY ALLERGIES METHOTREXATE (ANTI-RHEUMATIC): MIGRANES - SIDE EFFECTS CYMBALTA: RACING PLUSE, SHAKES - ALLERGY WELLBUTRIN: PALPITATIONS, SEVERE - ALLERGY SULFA (FOR ALLERGY USE ONLY): NAUSEA/VOMITING - ALLERGY LYRICA: PALPITATIONS - ALLERGY CELEXA: PALPITATIONS - SIDE EFFECTS ORENCIA: ANAPHYLAXIS - ALLERGY TOPICAL ALOE VERA: SEVERE ITCHING CANNOT TOLERATE ASA BASED PRODUCTS/ NSAIDS: HX STOMACH BLEED - CONTRAINDICATION SOCIAL HISTORY GENERAL: TOBACCO USE ARE YOU A:CURRENT SMOKER ARE YOU INTERESTED IN QUITTING?THINKING ABOUT QUITTING COUNSELED THE PATIENT ON SMOKING CESSATION, EDUCATION [id number]/11/2021 HOW MANY CIGARETTES A DAY DO YOU SMOKE?5 OR LESS HOW SOON AFTER YOU WAKE UP DO YOU SMOKE YOUR FIRST CIGARETTE?AFTER 60 MIN HOW OFTEN DO YOU SMOKE CIGARETTES?EVERY DAY PATIENT COUNSELED ON THE DANGERS OF TOBACCO USE AND URGED TO QUIT:05/26/2020 VAPORNO E-CIGARETTENO LATEX QUESTIONNAIRE LATEX ALLERGY : HAVE YOU EVER DEVELOPED ANY TYPE OF REACTION AFTER HANDLING LATEX PRODUCTS SUCH RUBBER GLOVES, CONDOMS, DIAPHRAGMS, BALLOONS, SOCKS, OR UNDERWEAR?NO LATEX ALLERGY : HAVE YOU EVER DEVELOPED ANY TYPE OF REACTION DURING OR AFTER DENTAL APPOINTMENT, VAGINAL/RECTAL EXAMINATION, SURGICAL PROCEDURE, OR ANY OTHER EXPOSURE?NO LATEX RISK : HAVE YOU EVER HAD ANY DIFFICULTY BREATHING OR HIVES AFTER EATING OR HANDLING ANY FRUITS, OR VEGETABLES; SUCH KIWI, BANANAS, STONE FRUITS, OR CHESTNUTSNO LATEX RISK : DO YOU HAVE A PREVIOUS PERSONAL HISTORY OF MORE THAN NINE SURGERIES, SPINA BIFIDA, OR REPEATED CATHERIZATIONS? NO LATEX RISK : ARE YOU FREQUENTLY EXPOSED TO LATEX PRODUCTS IN YOUR OCCUPATION?NO DATE ASKED : 06/10/2020 ALCOHOL USE: NO. ALCOHOL SCREENING DID YOU HAVE A DRINK CONTAINING ALCOHOL IN THE PAST YEAR?YES HOW OFTEN DID YOU HAVE A DRINK CONTAINING ALCOHOL IN THE PAST YEAR?MONTHLY OR LESS (1 POINT) POINTS1 INTERPRETATIONNEGATIVE RECREATIONAL DRUG USE DRUG USE?NO CAFFEINE CAFFEINE USE?YES 2-3 DAILY SEXUAL HX HAD SEX IN THE LAST 12 MONTHS (VAGINAL, ORAL, OR ANAL)?NO HAVE YOU EVER HAD AN STD?NO HIV / HEP-C SCREENING HIV TEST OFFERED TO PATIENT:YES DATE OFFERED:06/28/2017 TEST ACCEPTED:NO HEP-C TEST OFFERED TO PATIENT:YES DATE OFFERED:06/28/2017 REASON:PATIENT DECLINED TEST ACCEPTED:NO REASON:PATIENT DECLINED SIKH [id number] NONE NO SPIRITISM BELIEFS THAT WOULD IMPACT HEALTH CARE. LANGUAGE LANGUAGES SPOKEN:[place]PALI EDUCATION LEVEL OF EDUCATION:HIGH SCHOOL GED LEARNING BARRIERS / SPECIAL NEEDS CHANGE FROM LAST VISIT?NO BARRIERS TO LEARNING?NO HEARING IMPAIRED?NO TNITUS VISION IMPAIRED?YES :CORRECTIVE LENSES COGNITIVELY IMPAIRED?NO READINESS TO LEARN?YES LEARNING PREFERENCES?NO LEARNING CAPABILITIES PRESENT?YES EMOTIONAL BARRIERS?NO SPECIAL DEVICES?YES :CANE NEEDED DRY WALL PLASTERER NEEDED?NO DOMESTIC VIOLENCE DO YOU FEEL SAFE IN YOUR ENVIRONMENT?YES OCCUPATION: DISABLED. DIET: AVOIDS GREASY, FRIED FOODS, DAIRY.TRIES TO EAT SMALLER PORTIONS. EXERCISE: LOWER BACK EXERCISES, WALKS TOLERATED. MARITAL STATUS: .. OTHERS AT HOME: DAUGHTER. - PFS REFERRAL NEEDED?NO CLERGY REFERRAL NEEDED?NO PUBLIC HEALTH REFERRAL NEEDED?NO HAS THE PATIENT BEEN EDUCATED REGARDING HIS/HER PLAN OF CARE?YES HAS THE PATIENT BEEN EDUCATED REGARDING PAIN, THE RISK FOR PAIN, THE IMPORTANCE OF EFFECTIVE PAIN MANAGEMENT, AND THE PAIN ASSESSMENT PROCESS?YES ADVANCE DIRECTIVE ADVANCE DIRECTIVE DISCUSSED WITH PATIENT:YES PT STATES SHE HAS A HEALTH CARE PROXY-RAH ROSARIO [phone] REVIEW OF SYSTEMS CONSTITUTIONAL: ANY RECENT FEVER NO . CHILLS NO . WEIGHT CHANGE OF UNKNOWN REASONS NO . GASTROENTEROLOGY: NEW UNEXPLAINABLE CHANGES IN BOWEL CONTROL NO . CONSTIPATION NO . GENITOURINARY: ANY NEW CHANGE IN BLADDER CONTROL? NO . NEUROLOGY: NEW ONSET DIZZINESS OR NEUROLOGICAL CHANGES NOT MENTIONED NO . NEW NUMBNESS OR PAIN PATTERNS NOT MENTIONED AND PERTINENT TO TODAY'S VISIT NO . CARDIOLOGY: NEW CHEST PRESSURE NO . NEW CHEST PAIN NO . RESPIRATORY: UNEXPLAINABLE COUGH NO . NEW SHORTNESS OF BREATH NO . VITAL SIGNS WT 125.2 LBS, HT 64 IN, BMI 21.49 INDEX, BP 140/61 MM HG, HR 86 /MIN, RR 18 /MIN, TEMP 98.2 F, SAFE IN ENV? (Y/N) YES, NA INITIALS [place] 11:05T.LISHA CORLEY. EXAMINATION GENERAL EXAMINATION: GENERAL AWAKE,ALERT ,PLEASANT . PSYCH AFFECT NORMAL . LUNGS: LUNG LINDSEY ARE CLEAR TO AUSCULTATION BILATERALLY. GOOD MOVEMENT OF AIR . HEART: S1, S2 IN A REGULAR RATE AND RHYTHM. NO SIGNIFICANT MURMURS, RUBS OR GALLOPS NOTED . MUSCULOSKELETAL: MUSCLE STRENGTH TESTING 5/5 BILATERAL LOWER EXTREMITIES. LUMBAR: PALPATION: + FOR PAIN OVER L/S SPINE. + FOR PAIN OVER L/S PARASPINALS WELL-HEALED SURGICAL SCAR L/S AXIS. DIAGNOSTIC TESTS REVIEWEDMRI L/S SPINE . 06/2019. 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 . PROCEDURE CODES FA211 ESTABILISHED PATIENT [facility] FAC[facility] CHARGE DISPOSITION & COMMUNICATION FOLLOW UP NEEDS F/U W DR Muller-DECIDE INTERVENTIONAL PLAN (REASON: LOW BACK PAIN) ELECTRONICALLY SIGNED BY CARIDAD HENLEY ON 06/17/2020 AT 03:54 PM EST DISCLAIMER : THIS IS A VISIT SUMMARY EXTRACTED FROM THE [employer] CHART. IT IS NOT A COPY OF THE [employer] PROGRESS NOTE. ZINA
== END ==
LOC: M PAIN 10:45
PROVIDERS: ATTEND Nurse Practitioner Family
DX: G89.29 Other chronic pain (principal); M47.816 Spondylosis without myelopathy or radiculopathy, lumbar region; M96.1 Postlaminectomy syndrome, not elsewhere classified; M79.7 Fibromyalgia; K21.9 Gastro-esophageal reflux disease without esophagitis; E78.5 Hyperlipidemia, unspecified; E55.9 Vitamin D deficiency, unspecified; K58.0 Irritable bowel syndrome with diarrhea; H04.123 Dry eye syndrome of bilateral lacrimal glands; G47.00 Insomnia, unspecified; F41.9 Anxiety disorder, unspecified; F17.210 Nicotine dependence, cigarettes, uncomplicated; Z79.891 Long term (current) use of opiate analgesic; Z79.899 Other long term (current) drug therapy; Z88.2 Allergy status to sulfonamides; Z88.8 Allergy status to other drugs, medicaments and biological substances

== ENCOUNTER → 2020-06-18 | Outpatient (CLI) | payer MEDICARE | LOC: M LABSMTC 11:18 | PROVIDERS: ATTEND Anesthesiology | DX: Z01.812 Encounter for preprocedural laboratory examination (principal); Z20.822 Contact with and (suspected) exposure to COVID-19 ==

== ENCOUNTER → 2020-07-07 | Outpatient (CLI) | payer MEDICARE | LOC: M LABSMTC 10:43 | PROVIDERS: ATTEND Anesthesiology | DX: Z20.828 Contact with and (suspected) exposure to other viral communicable diseases (principal); Z11.59 Encounter for screening for other viral diseases ==

== ENCOUNTER → 2020-07-12 | Outpatient (CLI) | payer MEDICARE ==
[~2020-07-12] MED LIST changes: +BUPIVACAINE HCL 0.25% 30ML VIAL As Ordered ONE; +ISOVUE-M 300 61% 15ML VIAL As Ordered ONE; +LIDOCAINE 1% SDV 30ML VIAL As Ordered ONE
--- NOTE | 2020-07-12 12:41 | REP ---
INDICATION: BILAT LFBD #1. COMPARISON: None. TECHNIQUE: Four views. 30.7 seconds of fluoroscopy time is reported. FINDINGS: A sequence of 4 last image hold fluoroscopically obtained spot radiograph(s) of the lumbar spine document(s) needle position(s) and contrast injection associated with injection procedure. IMPRESSION: Procedural imaging. <Electronically signed by Elan Rudolph > 07/12/20 [id number]
--- NOTE | 2020-07-16 01:46 | ECWPNPC ---
PATIENT NAME: LOGAN CRAVEN : 1960 GENDER: FEMALE VISIT DATE: 07/12/2020 DISCHARGE DATE: 07/12/20 1239 VISIT LOCKED DATE TIME: PHYSICIAN: KENDRA CRFAT MD PHYSICIAN PAGER NO: ACTIVE RESOURCE: KENDRA CRAFT MD REASON FOR APPOINTMENT 1. BILATERAL DIAGNOSTIC LUMBAR FACET BLOCK #1 L4-L5, L5-S1 HISTORY OF PRESENT ILLNESS GENERAL: -. FALL RISK SCREENING: SCREENING : NO FALLS REPORTED IN THE LAST YEAR.. PAIN SCREENING: PATIENT HAS A COMPLAINT OF ACUTE OR CHRONIC PAIN :YES LOCATION OF PAIN:LOW BACK, LEG(S) INTENSITY OF PAIN (SCALE OF 1 TO 10):7 WHAT DOES YOUR PAIN FEEL LIKE:CONTINOUS "JUST CONSTANT PAIN" DURATION:CONTINOUS, AWAKENS FROM SLEEP PAIN IS INCREASED BY:ACTIVITIES PAIN IS DECREASED BY:USE OF PAIN MEDICATIONS PLAN/GOALS/TREATMENT/INTERVENTION/FOLLOW UP:SEE PLAN NURSING NOTE: -. PAIN CENTER INTAKE QUESTIONS: DO YOU HAVE A HISTORY OF MRSA? :NO DO YOU TAKE A BLOOD THINNERS? :NO DO YOU HAVE ANY BLEEDING DISORDERS? :NO ANY NEW NUMBNESS OR WEAKNESS IN YOUR LEGS OR ARMS? :NO ANY PACEMAKER,DEFIBRILLATOR, OR DORSAL COLUMN STIMULATOR? :NO DO YOU HAVE ANY RASHES OR OPEN SORES? :NO ARE YOU ALLERGIC TO IV DYE? :NO ARE YOU DIABETIC? :NO ANY NEW PROBLEMS WITH YOUR MEDICATIONS? :NO HAVE YOU RECEIVED A VACCINE IN THE PAST 30 DAYS? :NO DO YOU PLAN TO RECEIVE A VACCINE IN THE NEXT 21 DAYS? :NO DO YOU TAKE ANY IMMUNOSUPPRESSIVE MEDICATIONS? :YES ELMIRON (LAST DOSE: 07/06/20) ANY HISTORY OF SEIZURES? :NO ANY HISTORY OF CARDIAC ISSUES OR EVENTS? :NO DO YOU HAVE ANY KIDNEY OR LIVER DISEASE? :NO DO YOU HAVE SLEEP APNEA? :NO ANY RECENT HEAD INJURY? :NO DO YOU HAVE ANY NEW INFECTIONS? :NO IS THERE A CHANCE YOU COULD BE ? :NO ARE YOU BREAST FEEDING? :NO WHEN DID YOU LAST EAT? : 07/11/20 WHEN DID YOU LAST DRINK? : 07/12/20 0845 WHAT DID YOU LAST DRINK? : WATER NAME OF PERSON DRIVING YOU HOME? : KATIE CRAVEN () DO YOU HAVE ANY OTHER QUESTIONS OR CONCERNS? : NO CURRENT MEDICATIONS TAKING VITAMIN D 2000 UNIT CAPSULE 1 TABLET ORALLY ONCE A DAY TAKING CANE . MISCELLANEOUS QUAD CANE _ QD R27 TAKING CALCIUM 600 + D 600-400 MG-UNIT TABLET 1 TABLET ORALLY ONCE A DAY TAKING ELMIRON 100 MG CAPSULE 1 CAPSULE ON AN EMPTY STOMACH 1 TABLET THREE A DAY, NOTES: 07/06/20 TAKING LEFLUNOMIDE 20 MG TABLET 1 TABLET ORALLY ONCE A DAY, NOTES: 07/11/20 TAKING ENBREL SURECLICK 50 MG/ML SOLUTION AUTO-INJECTOR DIRECTED SUBCUTANEOUS ONCE A WEEK, NOTES: 07/11/20 TAKING CYANOCOBALAMIN 500 MCG TABLET 1 TABLET ORALLY 1 EVERY 5 DAYS TAKING CARAFATE 1 GM TABLET 1 TABLET ON AN EMPTY STOMACH ORALLY AC TID TAKING ATORVASTATIN CALCIUM 20 MG TABLET 1 TABLET ORALLY ONCE A DAY TAKING HYDROCODONE-ACETAMINOPHEN 5-325 MG TABLET 1 TABLET NEEDED ORALLY TID PRN MDD = 3 TAKING CARISOPRODOL 350 MG TABLET 1 TABLET NEEDED ORALLY TID PRN, MDD 3 TAKING FISH OIL 1000 MG CAPSULE 1 CAPSULE ORALLY ONCE A DAY TAKING ESCITALOPRAM OXALATE 10 MG TABLET 1.5 TABLET ORALLY ONCE A DAY TAKING ESOMEPRAZOLE MAGNESIUM 40 MG CAPSULE DELAYED RELEASE 1 CAPSULE ORALLY AC BID MEDICATION LIST REVIEWED AND RECONCILED WITH THE PATIENT PAST MEDICAL HISTORY RA/OSTEOARTHRITIS/FIBROMYALGIA NICOTINE ADDICTION-08/2011 FEV1 2.5L (101%)/RATIO 97%-1 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 GERD/DYSPEPSIA-06/2016 NORMAL EGD/COLON/SB CAPSULE-R HYPERLIPIDEMIA 2B ENDOMETRIOSIS 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 SPENCER 2008 FOLLOWS WITH WOMAN TO WOMAN HISTORY OF TUBULAR ADENOMA-NORMAL COLONOSCOPY APRIL 2009 NORMAL COLONOSCOPY C - RANDOM BIOPSIES-[place] COLONOSCOPY 07/18/16 REINDL CERVICAL DJD STATUS POST MULTILEVEL FUSION-01/2010 MRI STABLE ACDF C BASELINE DJD ATROPHIC VAGINITIS OSTEOPENIA VITAMIN D DEFICIENCY CHRONIC SINUSITIS / NONE LATELY RECURRENT UTI / YEARS AGO CHRONIC DIARRHEA STATUS POST LAPAROSCOPIC CHOLECYSTECTOMY JULY 2009//[id number] CHRONIC DRY EYES MEMORY LOSS 2 INSOMNIA, WORK STRESS-12/2011 NORMAL MRI BRAIN S AND NORMAL WORKUP LUMBAR DJD-L2/3 BULGE C L IF HNP C L L2 COMPRESSION, L3/4 SEVERE CCS C B L3 COMPRESSION BY 03/2017 MRI LONG-TERM DISABILITY-TAKEN OOW 08/05/[address] BARAJAS, 01/2014 FILLED OUT LTD PAPERWORK FOR GUARDIAN-PATIENT DEFERRED WCE INSOMNIA, COOMORBID ANXIETY OCULAR SURFACE DISEASE ALLERGIES METHOTREXATE (ANTI-RHEUMATIC): MIGRANES - SIDE EFFECTS CYMBALTA: RACING PLUSE, SHAKES - ALLERGY WELLBUTRIN: PALPITATIONS, SEVERE - ALLERGY SULFA (FOR ALLERGY USE ONLY): NAUSEA/VOMITING - ALLERGY LYRICA: PALPITATIONS - ALLERGY CELEXA: PALPITATIONS - SIDE EFFECTS ORENCIA: ANAPHYLAXIS - ALLERGY TOPICAL ALOE VERA: SEVERE ITCHING CANNOT TOLERATE ASA BASED PRODUCTS/ NSAIDS: HX STOMACH BLEED - CONTRAINDICATION SOCIAL HISTORY GENERAL: TOBACCO USE ARE YOU A:CURRENT SMOKER ARE YOU INTERESTED IN QUITTING?THINKING ABOUT QUITTING COUNSELED THE PATIENT ON SMOKING CESSATION, EDUCATION [id number]/12/2021 HOW MANY CIGARETTES A DAY DO YOU SMOKE?5 OR LESS HOW SOON AFTER YOU WAKE UP DO YOU SMOKE YOUR FIRST CIGARETTE?AFTER 60 MIN HOW OFTEN DO YOU SMOKE CIGARETTES?EVERY DAY PATIENT COUNSELED ON THE DANGERS OF TOBACCO USE AND URGED TO QUIT:05/26/2020 VAPORNO E-CIGARETTENO LATEX QUESTIONNAIRE LATEX ALLERGY : HAVE YOU EVER DEVELOPED ANY TYPE OF REACTION AFTER HANDLING LATEX PRODUCTS SUCH RUBBER GLOVES, CONDOMS, DIAPHRAGMS, BALLOONS, SOCKS, OR UNDERWEAR?NO LATEX ALLERGY : HAVE YOU EVER DEVELOPED ANY TYPE OF REACTION DURING OR AFTER DENTAL APPOINTMENT, VAGINAL/RECTAL EXAMINATION, SURGICAL PROCEDURE, OR ANY OTHER EXPOSURE?NO LATEX RISK : HAVE YOU EVER HAD ANY DIFFICULTY BREATHING OR HIVES AFTER EATING OR HANDLING ANY FRUITS, OR VEGETABLES; SUCH KIWI, BANANAS, STONE FRUITS, OR CHESTNUTSNO LATEX RISK : DO YOU HAVE A PREVIOUS PERSONAL HISTORY OF MORE THAN NINE SURGERIES, SPINA BIFIDA, OR REPEATED CATHERIZATIONS? YES LATEX RISK : ARE YOU FREQUENTLY EXPOSED TO LATEX PRODUCTS IN YOUR OCCUPATION?NO DATE ASKED : 07/09/2020 ALCOHOL USE: NO. ALCOHOL SCREENING DID YOU HAVE A DRINK CONTAINING ALCOHOL IN THE PAST YEAR?YES HOW OFTEN DID YOU HAVE A DRINK CONTAINING ALCOHOL IN THE PAST YEAR?MONTHLY OR LESS (1 POINT) POINTS1 INTERPRETATIONNEGATIVE RECREATIONAL DRUG USE DRUG USE?NO CAFFEINE CAFFEINE USE?YES 2-3 DAILY SEXUAL HX HAD SEX IN THE LAST 12 MONTHS (VAGINAL, ORAL, OR ANAL)?NO HAVE YOU EVER HAD AN STD?NO HIV / HEP-C SCREENING HIV TEST OFFERED TO PATIENT:YES DATE OFFERED:06/28/2017 TEST ACCEPTED:NO HEP-C TEST OFFERED TO PATIENT:YES DATE OFFERED:06/28/2017 REASON:PATIENT DECLINED TEST ACCEPTED:NO REASON:PATIENT DECLINED HINDU [id number] NONE NO [place]VENT BELIEFS THAT WOULD IMPACT HEALTH CARE. LANGUAGE LANGUAGES SPOKEN:FRENCH EDUCATION LEVEL OF EDUCATION:HIGH SCHOOL GED LEARNING BARRIERS / SPECIAL NEEDS CHANGE FROM LAST VISIT?NO BARRIERS TO LEARNING?NO HEARING IMPAIRED?NO TINITUS VISION IMPAIRED?YES COGNITIVELY IMPAIRED?NO :CORRECTIVE LENSES READINESS TO LEARN?YES LEARNING PREFERENCES?NO LEARNING CAPABILITIES PRESENT?YES EMOTIONAL BARRIERS?NO SPECIAL DEVICES?YES :CANE NEEDED CORE STRIPPER NEEDED?NO DOMESTIC VIOLENCE DO YOU FEEL SAFE IN YOUR ENVIRONMENT?YES OCCUPATION: DISABLED. DIET: AVOIDS GREASY, FRIED FOODS, DAIRY.TRIES TO EAT SMALLER PORTIONS. EXERCISE: LOWER BACK EXERCISES, WALKS TOLERATED. MARITAL STATUS: .. OTHERS AT HOME: DAUGHTER. - PFS REFERRAL NEEDED?NO CLERGY REFERRAL NEEDED?NO PUBLIC HEALTH REFERRAL NEEDED?NO HAS THE PATIENT BEEN EDUCATED REGARDING HIS/HER PLAN OF CARE?YES HAS THE PATIENT BEEN EDUCATED REGARDING PAIN, THE RISK FOR PAIN, THE IMPORTANCE OF EFFECTIVE PAIN MANAGEMENT, AND THE PAIN ASSESSMENT PROCESS?YES ADVANCE DIRECTIVE ADVANCE DIRECTIVE DISCUSSED WITH PATIENT:YES PT STATES SHE HAS A HEALTH CARE PROXY-RAH ROSARIO [phone] VITAL SIGNS WT 124.2 LBS, HT 64 IN, BMI 21.32 INDEX, BP 127/58 MM HG, HR 94 /MIN, RR 18 /MIN, TEMP 97.4 F, OXYGEN SAT % 98%, SAFE IN ENV? (Y/N) Y, NA INITIALS AW 1049, REVIEWED BY: EM. EXAMINATION GENERAL EXAMINATION: THE PATIENT IS ALERT, ORIENTED TIMES THREE AND COOPERATIVE. LUNGS ARE CLEAR TO AUSCULTATION. HEART SHOWS REGULAR RHYTHM, NO MURMURS AND NO GALLOPS. ASSESSMENTS SPONDYLOSIS WITHOUT MYELOPATHY OR RADICULOPATHY, LUMBAR REGION - M47.816 (PRIMARY) SPONDYLOSIS WITHOUT MYELOPATHY OR RADICULOPATHY, LUMBOSACRAL REGION - M47.817 TREATMENT SPONDYLOSIS WITHOUT MYELOPATHY OR RADICULOPATHY, LUMBAR REGION [facility] FACET BLOCK (PAIN)[id number] COMPLETION OF PROCEDURAL VISIT WHEN MEETS CRITERIAJEANINE ROSADO 07/12/2020 12:35:55 PM > CRITERIA MET OTHERS NOTES: 07/09/20 TIMOTHY WILSON YARD SWITCHER. PROCEDURES PAIN NURSING RECORD PROCEDURE IN ROOM 1135, PHYSICIAN IN ROOM 1159, START 1204, FINISH 1210, PHYSICIAN OUT OF ROOM 1212, OUT OF ROOM 1220, ECG NORMAL SINUS, PATIENT SHIELDED YES, SAFETY STRAP YES, PREP CHLOROPREP Peterson ROSADO YARD SWITCHER, DRESSING TEGADERM DR CRAFT LOC: 1. ALERT, ORIENTED, ASHLEEJEANINE 07/12/2020 12:05:05 PM > RESP: 1. REGULAR, NO DYSPNEA, ASHLEEJEANINE 07/12/2020 12:05:09 PM > COLOR: 1. PINK, ASHLEEJEANINE 07/12/2020 12:05:14 PM > SKIN: 1. WARM, DRY, ASHLEE,JEANINE 07/12/2020 12:05:20 PM > POSITION: 1. PRONE, ASHLEEJEANINE 07/12/2020 12:05:25 PM > VITALS: 156/70, 78, 16, 97% ASHLEE,JEANINE 07/12/2020 11:49:07 AM > 136/70, 77, 16, 96%, ASHLEE,JEANINE 07/12/2020 12:05:42 PM > 145/66, 77, 18, 96%, ASHLEEJEANINE 07/12/2020 12:15:32 PM > 121/56, 84, 18, 98%, ASHLEEJEANINE 07/12/2020 12:30:56 PM > NOTES Percy ROSADO RN COMPLETION OF PROCEDURE APPOINTMENT: POST PAIN 5, DRESSING SITE DRY AND INTACT, IV N/A, GAIT STEADY, TEACHING COMPLETED, PATIENT ACKNOWLEDGES UNDERSTANDING YES, PROCEDURE APPOINTMENT COMPLETED AT 1236 PN LUMBAR FACET BLOCK DIAGNOSTIC PRE PROCEDURE DIAGNOSIS LUMBAR SPONDYLOSIS, LUMBOSACRAL SPONDYLOSIS POST PROCEDURE DIAGNOSIS LUMBAR SPONDYLOSIS, LUMBOSACRAL SPONDYLOSIS PROCEDURE BILATERAL L4-L5 AND BILATERAL L5-S1 FACET BLOCK DIAGNOSTIC NUMBER [address] KENDRA CRAFT POWDER BLENDER NONE ANESTHESIA LOCAL PRE PROCEDURE NOTE THE PATIENT WITH HISTORY OF CHRONIC LOW BACK PAIN. I EVALUATED THE PATIENT AND REVIEWED THE CHART. I WENT OVER THE RISKS, ALTERNATIVES, AND BENEFITS ASSOCIATED WITH THIS PROCEDURE. THE PATIENT WOULD LIKE TO PROCEED AND GAVE CONSENT TO PERFORM THE PROCEDURE. AGREED WITH THE PATIENT, WE ARE DOING THIS PROCEDURE TO DETERMINE IF THE PATIENT IS A CANDIDATE FOR A RADIOFREQUENCY ABLATION OF THE FACETS JOINTS. THE PATIENT DENIES UNEXPLAINABLE WEIGHT LOSS, FEVER, CHILLS, OR NEW CHANGES IN URINARY OR BOWEL CONTROL. THE PATIENT IS COVID-19 NEGATIVE DESCRIPTION OF PROCEDURE THE PATIENT WAS BROUGHT TO THE PROCEDURE ROOM AND PLACED IN THE PRONE POSITION. THE LUMBOSACRAL AREA WAS CLEANED WITH CHLORAPREP SOLUTION AND DRAPED ASEPTICALLY. THE PROCEDURE WAS DONE UNDER STERILE CONDITIONS. A TIMEOUT WAS PERFORMED WHERE THE CONSENTED SITE WAS VERIFIED WITH EVERYONE IN THE ROOM. UNDER FLUOROSCOPIC GUIDANCE, TARGETS WERE SELECTED AT THE INTERSECTION OF THE RIGHT AND LEFT TRANSVERSE PROCESS OF L4, L5 AND ALA OF S1 WITH ITS RESPECTIVE SUPERIOR ARTICULAR PROCESS WITH A TARGET OF THE MEDIAN BRANCHES OF L3, L4 AND THE DORSAL RAMI OF L5. I CONFIRMED AGAIN THE SITE OF TARGET. LIDOCAINE WAS USED TO NUMB THE SKIN AND THE SUBCUTANEOUS TISSUE BELOW IT. SPINAL NEEDLE, 22-GAUGE, WAS ADVANCED UNDER FLUOROSCOPIC GUIDANCE AND FOLLOWING PATIENT FEEDBACK UNTIL THE TARGETS WERE REACHED. POSITION OF THE NEEDLES WAS VERIFIED WITH AP AND LATERAL VIEWS. AFTER PROPER POSITION OF THE NEEDLES WAS ACHIEVED, ISOVUE-M DYE 30%, 0.1 ML, WAS INJECTED AT EACH SITE SHOWING ADEQUATE SPREAD OF THE DYE. THEN, A SOLUTION OF 0.4 ML OF BUPIVACAINE 0.25% WAS INJECTED AT EACH SITE. THE MEDICATIONS WERE VERIFIED WITH THE NURSE. THERE WAS NO EVIDENCE OF BLOOD, PARESTHESIA OR CEREBROSPINAL FLUID DURING THE PROCEDURE. THE PATIENT WAS SENT TO THE RECOVERY ROOM. THE PATIENT WAS MOVING THE EXTREMITIES AND DOING WELL. THERE WERE NO COMPLICATIONS DURING THE PROCEDURE. ESTIMATED BLOOD LOSS WAS LESS THAN 5 ML. FLUOROSCOPY TIME WAS 30 SECONDS POST PROCEDURE NOTE THE PATIENT WILL DOCUMENT THE PAIN LEVEL AND RESPONSE TO THIS PROCEDURE PER PAIN DIARY. THE PATIENT WILL BE SEEN IN A FOLLOW UP IN THE NEXT FEW WEEKS. FURTHER DETERMINATION FOR THE PATIENT'S CASE WILL BE DONE AT THE NEXT VISIT. INSTRUCTIONS WERE GIVEN, QUESTIONS WERE ANSWERED, AND THE PATIENT EXPRESSED UNDERSTANDING AND AGREED WITH THE PLAN. I, CHINYERE AMARO, DOCUMENTED THE ABOVE INFORMATION ACTING A SCRIBE FOR DR. CRAFT. I HAVE REVIEWED THE ABOVE DOCUMENT, WRITTEN BY CHINYERE AMARO, WINE CELLAR STOCK CLERK, AND I VERIFY THAT IT IS ACCURATE PROCEDURE CODES 82808 INJ PARAVERT F JNT L/S 1 LEV, MODIFIERS: 50 [id number] INJ PARAVERT F JNT L/S 2 LEV, MODIFIERS: 50 DISPOSITION & COMMUNICATION FOLLOW UP FOLLOW UP WITH NATURAL FOODS CLERK (REASON: POST BILATERAL DIAGNOSTIC LUMBAR FACET BLOCK #1 L4-L5, L5-S1) ELECTRONICALLY SIGNED BY KENDRA CRAFT MD, MD ON 07/15/2020 AT 01:51 PM EDT DISCLAIMER : THIS IS A VISIT SUMMARY EXTRACTED FROM THE [employer] CHART. IT IS NOT A COPY OF THE [employer] PROGRESS NOTE. ZINA
== END ==
LOC: M PAIN 11:00
PROVIDERS: ATTEND Anesthesiology
DX: M47.816 Spondylosis without myelopathy or radiculopathy, lumbar region (principal); M47.817 Spondylosis without myelopathy or radiculopathy, lumbosacral region; F17.210 Nicotine dependence, cigarettes, uncomplicated; M79.7 Fibromyalgia; M06.9 Rheumatoid arthritis, unspecified; K21.9 Gastro-esophageal reflux disease without esophagitis; E78.5 Hyperlipidemia, unspecified; E55.9 Vitamin D deficiency, unspecified; K58.0 Irritable bowel syndrome with diarrhea; G47.00 Insomnia, unspecified; F41.9 Anxiety disorder, unspecified; Z79.891 Long term (current) use of opiate analgesic; Z79.899 Other long term (current) drug therapy; Z88.2 Allergy status to sulfonamides; Z88.8 Allergy status to other drugs, medicaments and biological substances; Z91.048 Other nonmedicinal substance allergy status
CPT/HCPCS: 64493; 64494; Q9967

== ENCOUNTER → 2020-07-27 | Outpatient (CLI) | payer MEDICARE ==
[~2020-07-27] MED LIST changes: -BUPIVACAINE HCL 0.25% 30ML VIAL As Ordered ONE; -ISOVUE-M 300 61% 15ML VIAL As Ordered ONE; -LIDOCAINE 1% SDV 30ML VIAL As Ordered ONE
--- NOTE | 2020-07-31 06:22 | ECWPNPC ---
PATIENT NAME: LOGAN CRAVEN : 1960 GENDER: FEMALE VISIT DATE: 07/27/2020 DISCHARGE DATE: 07/27/20 1058 VISIT LOCKED DATE TIME: PHYSICIAN: ANDREA ELIAS PHYSICIAN PAGER NO: ACTIVE RESOURCE: ANDREA ELIAS REASON FOR APPOINTMENT 1. POST BILATERAL DIAGNOSTIC LUMBAR FACET BLOCK #1 L4-L5, L5-S1 HISTORY OF PRESENT ILLNESS GENERAL: HERE FOR POST PROCEDURE FOLLOW-UP. HAD BILATERAL L4-5, L5-S1 LUMBAR DIAGNOSTIC FACET BLOCK ON 07/12/2020. HOURLY DIARY IS REVIEWED AND SHOWS GREATER THAN 80% REDUCTION IN PAIN FOR SEVERAL DAYS. PAIN IS BEGINNING TO RETURN TO BASELINE. DISCUSSED DIAGNOSTIC TESTING #2 AND PROCEEDING WITH RADIOFREQUENCY.-. FALL RISK SCREENING: SCREENING : NO FALLS REPORTED IN THE LAST YEAR. PAIN SCREENING: PATIENT HAS A COMPLAINT OF ACUTE OR CHRONIC PAIN :YES LOCATION OF PAIN:LOW BACK INTENSITY OF PAIN (SCALE OF 1 TO 10):4 WHAT DOES YOUR PAIN FEEL LIKE:CONTINOUS DURATION:CONSTANT PAIN IS INCREASED BY:ACTIVITIES, PROLONGED STANDING, OTHERS WALKING PAIN IS DECREASED BY:OTHERS RESTING AND HEAT AND ICE NURSING NOTE: -. PAIN CENTER INTAKE QUESTIONS: DO YOU HAVE A HISTORY OF MRSA? :NO DO YOU TAKE A BLOOD THINNERS? :YES ELMIRON DO YOU HAVE ANY BLEEDING DISORDERS? :NO ANY NEW NUMBNESS OR WEAKNESS IN YOUR LEGS OR ARMS? :NO ANY PACEMAKER,DEFIBRILLATOR, OR DORSAL COLUMN STIMULATOR? :NO DO YOU HAVE ANY RASHES OR OPEN SORES? :NO ARE YOU ALLERGIC TO IV DYE? :NO ARE YOU DIABETIC? :NO ANY NEW PROBLEMS WITH YOUR MEDICATIONS? :NO HAVE YOU RECEIVED A VACCINE IN THE PAST 30 DAYS? :NO DO YOU PLAN TO RECEIVE A VACCINE IN THE NEXT 21 DAYS? :NO DO YOU NEED ANY PRESCRIPTION? :NO DO YOU TAKE ANY IMMUNOSUPPRESSIVE MEDICATIONS? :YES LEFLUNOMIDE AND ENBREL SURECLICK IS THERE A CHANCE YOU COULD BE ? :NO ARE YOU BREAST FEEDING? :NO CURRENT MEDICATIONS TAKING VITAMIN D 2000 UNIT CAPSULE 1 TABLET ORALLY ONCE A DAY TAKING CANE . MISCELLANEOUS QUAD CANE _ QD R27 TAKING CALCIUM 600 + D 600-400 MG-UNIT TABLET 1 TABLET ORALLY ONCE A DAY TAKING ELMIRON 100 MG CAPSULE 1 CAPSULE ON AN EMPTY STOMACH 1 TABLET THREE A DAY TAKING LEFLUNOMIDE 20 MG TABLET 1 TABLET ORALLY ONCE A DAY TAKING ENBREL SURECLICK 50 MG/ML SOLUTION AUTO-INJECTOR DIRECTED SUBCUTANEOUS ONCE A WEEK TAKING CYANOCOBALAMIN 500 MCG TABLET 1 TABLET ORALLY 1 EVERY 5 DAYS TAKING CARAFATE 1 GM TABLET 1 TABLET ON AN EMPTY STOMACH ORALLY AC TID TAKING ATORVASTATIN CALCIUM 20 MG TABLET 1 TABLET ORALLY ONCE A DAY TAKING FISH OIL 1000 MG CAPSULE 1 CAPSULE ORALLY ONCE A DAY TAKING ESCITALOPRAM OXALATE 10 MG TABLET 15MG 1.5 TABLET ORALLY ONCE A DAY TAKING ESOMEPRAZOLE MAGNESIUM 40 MG CAPSULE DELAYED RELEASE 1 CAPSULE ORALLY AC BID TAKING CARISOPRODOL 350 MG TABLET 1 TABLET NEEDED ORALLY TID PRN, MDD 3 TAKING HYDROCODONE-ACETAMINOPHEN 5-325 MG TABLET 1 TABLET NEEDED ORALLY TID PRN MDD = 3 MEDICATION LIST REVIEWED AND RECONCILED WITH THE PATIENT PAST MEDICAL HISTORY RA/OSTEOARTHRITIS/FIBROMYALGIA NICOTINE ADDICTION-08/2011 FEV1 2.5L (101%)/RATIO 97%-1 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 GERD/DYSPEPSIA-06/2016 NORMAL EGD/COLON/SB CAPSULE-R HYPERLIPIDEMIA 2B ENDOMETRIOSIS 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 SPENCER 2008 FOLLOWS WITH WOMAN TO WOMAN HISTORY OF TUBULAR ADENOMA-NORMAL COLONOSCOPY APRIL 2009 NORMAL COLONOSCOPY C - RANDOM BIOPSIES-[place] COLONOSCOPY 07/18/16 REINDL CERVICAL DJD STATUS POST MULTILEVEL FUSION-01/2010 MRI STABLE ACDF C BASELINE DJD ATROPHIC VAGINITIS OSTEOPENIA VITAMIN D DEFICIENCY CHRONIC SINUSITIS / NONE LATELY RECURRENT UTI / YEARS AGO CHRONIC DIARRHEA STATUS POST LAPAROSCOPIC CHOLECYSTECTOMY JULY 2009//[id number] CHRONIC DRY EYES MEMORY LOSS 2 INSOMNIA, WORK STRESS-12/2011 NORMAL MRI BRAIN S AND NORMAL WORKUP LUMBAR DJD-L2/3 BULGE C L IF HNP C L L2 COMPRESSION, L3/4 SEVERE CCS C B L3 COMPRESSION BY 03/2017 MRI LONG-TERM DISABILITY-TAKEN OOW 08/05/[address] BARAJAS, 01/2014 FILLED OUT LTD PAPERWORK FOR GUARDIAN-PATIENT DEFERRED WCE INSOMNIA, COOMORBID ANXIETY OCULAR SURFACE DISEASE ALLERGIES METHOTREXATE (ANTI-RHEUMATIC): MIGRANES - SIDE EFFECTS CYMBALTA: RACING PLUSE, SHAKES - ALLERGY WELLBUTRIN: PALPITATIONS, SEVERE - ALLERGY SULFA (FOR ALLERGY USE ONLY): NAUSEA/VOMITING - ALLERGY LYRICA: PALPITATIONS - ALLERGY CELEXA: PALPITATIONS - SIDE EFFECTS ORENCIA: ANAPHYLAXIS - ALLERGY TOPICAL ALOE VERA: SEVERE ITCHING CANNOT TOLERATE ASA BASED PRODUCTS/ NSAIDS: HX STOMACH BLEED - CONTRAINDICATION SURGICAL HISTORY LAPAROSCOPY X2 CHRISTINE BTL 1982 TVH [address] SPENCER 2008 VAGINAL CUFF BX. IRMA CHANDLER NP 03/07 CHOLECYSTECTOMY 06/09 ACDF-C4-T1 10/06 R BREAST [id number] 09/2010 ABOVE L CTR- FISH 10/27/14 L4-L5 FUSION/LAMINECTOMY 09/2013 NORMAL EGD/COLON/SB CAPSULE-R 06/2016 FUSION C5 C6 1999 HYSTERECTOMY 1988 BENIGN MOLE REMOVAL 2018 SOCIAL HISTORY GENERAL: TOBACCO USE ARE YOU A:CURRENT SMOKER ARE YOU INTERESTED IN QUITTING?THINKING ABOUT QUITTING COUNSELED THE PATIENT ON SMOKING CESSATION, EDUCATION [id number]/30/2021 HOW MANY CIGARETTES A DAY DO YOU SMOKE?5 OR LESS HOW SOON AFTER YOU WAKE UP DO YOU SMOKE YOUR FIRST CIGARETTE?AFTER 60 MIN HOW OFTEN DO YOU SMOKE CIGARETTES?EVERY DAY PATIENT COUNSELED ON THE DANGERS OF TOBACCO USE AND URGED TO QUIT:05/26/2020 VAPORNO E-CIGARETTENO LATEX QUESTIONNAIRE LATEX ALLERGY : HAVE YOU EVER DEVELOPED ANY TYPE OF REACTION AFTER HANDLING LATEX PRODUCTS SUCH RUBBER GLOVES, CONDOMS, DIAPHRAGMS, BALLOONS, SOCKS, OR UNDERWEAR?NO LATEX ALLERGY : HAVE YOU EVER DEVELOPED ANY TYPE OF REACTION DURING OR AFTER DENTAL APPOINTMENT, VAGINAL/RECTAL EXAMINATION, SURGICAL PROCEDURE, OR ANY OTHER EXPOSURE?NO LATEX RISK : HAVE YOU EVER HAD ANY DIFFICULTY BREATHING OR HIVES AFTER EATING OR HANDLING ANY FRUITS, OR VEGETABLES; SUCH KIWI, BANANAS, STONE FRUITS, OR CHESTNUTSNO LATEX RISK : DO YOU HAVE A PREVIOUS PERSONAL HISTORY OF MORE THAN NINE SURGERIES, SPINA BIFIDA, OR REPEATED CATHERIZATIONS? YES LATEX RISK : ARE YOU FREQUENTLY EXPOSED TO LATEX PRODUCTS IN YOUR OCCUPATION?NO DATE ASKED : 07/27/2020 ALCOHOL USE: NO, ONCE EVERY 4 MONTH. ALCOHOL SCREENING DID YOU HAVE A DRINK CONTAINING ALCOHOL IN THE PAST YEAR?YES HOW OFTEN DID YOU HAVE A DRINK CONTAINING ALCOHOL IN THE PAST YEAR?MONTHLY OR LESS (1 POINT) POINTS1 INTERPRETATIONNEGATIVE RECREATIONAL DRUG USE DRUG USE?NO CAFFEINE CAFFEINE USE?YES 2-3 DAILY SEXUAL HX HAD SEX IN THE LAST 12 MONTHS (VAGINAL, ORAL, OR ANAL)?NO HAVE YOU EVER HAD AN STD?NO HIV / HEP-C SCREENING HIV TEST OFFERED TO PATIENT:YES DATE OFFERED:06/28/2017 TEST ACCEPTED:NO HEP-C TEST OFFERED TO PATIENT:YES DATE OFFERED:06/28/2017 REASON:PATIENT DECLINED TEST ACCEPTED:NO REASON:PATIENT DECLINED BUDDHIST [id number] NONE NO EPISCOPAL BELIEFS THAT WOULD IMPACT HEALTH CARE. LANGUAGE LANGUAGES SPOKEN:[place]ORUBA EDUCATION LEVEL OF EDUCATION:HIGH SCHOOL GED LEARNING BARRIERS / SPECIAL NEEDS CHANGE FROM LAST VISIT?NO BARRIERS TO LEARNING?NO HEARING IMPAIRED?NO TINITUS VISION IMPAIRED?YES :CORRECTIVE LENSES COGNITIVELY IMPAIRED?NO READINESS TO LEARN?YES LEARNING PREFERENCES?NO LEARNING CAPABILITIES PRESENT?YES EMOTIONAL BARRIERS?NO SPECIAL DEVICES?YES :CANE NEEDED CMM INSPECTOR NEEDED?NO DOMESTIC VIOLENCE DO YOU FEEL SAFE IN YOUR ENVIRONMENT?YES OCCUPATION: DISABLED. DIET: AVOIDS GREASY, FRIED FOODS, DAIRY.TRIES TO EAT SMALLER PORTIONS. EXERCISE: LOWER BACK EXERCISES, WALKS TOLERATED. MARITAL STATUS: .. OTHERS AT HOME: DAUGHTER. - PFS REFERRAL NEEDED?NO CLERGY REFERRAL NEEDED?NO PUBLIC HEALTH REFERRAL NEEDED?NO HAS THE PATIENT BEEN EDUCATED REGARDING HIS/HER PLAN OF CARE?YES HAS THE PATIENT BEEN EDUCATED REGARDING PAIN, THE RISK FOR PAIN, THE IMPORTANCE OF EFFECTIVE PAIN MANAGEMENT, AND THE PAIN ASSESSMENT PROCESS?YES ADVANCE DIRECTIVE ADVANCE DIRECTIVE DISCUSSED WITH PATIENT:YES PT STATES SHE HAS A HEALTH CARE PROXY-RAH ROSARIO [phone] HOSPITALIZATION/MAJOR DIAGNOSTIC PROCEDURE SURGICAL RELATED REVIEW OF SYSTEMS CONSTITUTIONAL: ANY RECENT FEVER NO . CHILLS NO . WEIGHT CHANGE OF UNKNOWN REASONS NO . GASTROENTEROLOGY: NEW UNEXPLAINABLE CHANGES IN BOWEL CONTROL NO . CONSTIPATION NO . GENITOURINARY: ANY NEW CHANGE IN BLADDER CONTROL? NO . NEUROLOGY: NEW ONSET DIZZINESS OR NEUROLOGICAL CHANGES NOT MENTIONED NO . NEW NUMBNESS OR PAIN PATTERNS NOT MENTIONED AND PERTINENT TO TODAY'S VISIT NO . CARDIOLOGY: NEW CHEST PRESSURE NO . PATIENT DENIES NO . RESPIRATORY: UNEXPLAINABLE COUGH NO . NEW SHORTNESS OF BREATH NO . VITAL SIGNS WT 125 LBS, HT 64 IN, BMI 21.45 INDEX, BP 126/55 MM HG, HR 85 /MIN, RR 18 /MIN, TEMP 98.3 F, OXYGEN SAT % 96%, SAFE IN ENV? (Y/N) YEST.CARYN CORLEY. EXAMINATION GENERAL EXAMINATION: GENERAL AWAKE,ALERT ,PLEASANT . PSYCH AFFECT NORMAL . LUNGS: LUNG LINDSEY ARE CLEAR TO AUSCULTATION BILATERALLY. GOOD MOVEMENT OF AIR . HEART: S1, S2 IN A REGULAR RATE AND RHYTHM. NO SIGNIFICANT MURMURS, RUBS OR GALLOPS NOTED . MUSCULOSKELETAL: MUSCLE STRENGTH TESTING 5/5 BILATERAL LOWER EXTREMITIES. LUMBAR: PALPATION: + FOR PAIN OVER L/S SPINE. + FOR PAIN OVER L/S PARASPINALS WELL-HEALED SURGICAL SCAR L/S AXIS. DIAGNOSTIC TESTS REVIEWEDMRI L/S SPINE . 06/2019. ASSESSMENTS SPONDYLOSIS WITHOUT MYELOPATHY OR RADICULOPATHY, LUMBAR REGION - M47.816 (PRIMARY) OTHER CHRONIC PAIN - G89.29 POST LAMINECTOMY SYNDROME - M96.1 TREATMENT SPONDYLOSIS WITHOUT MYELOPATHY OR RADICULOPATHY, LUMBAR REGION NOTES: BILATERAL DIAGNOSTIC LUMBAR FACET BLOCK L4-5,L5-S1 PRINTED AND REVIEWED PRE PROCEDURE WITH PATIENT EZEKIEL CORLEY. OTHER CHRONIC PAIN PAIN PROCEDURE LOGDATE OF PROCEDURE1PROCEDURE:BILATERAL DIAGNOSTIC LUMBAR FACET BLOCK #1 L4-L5,L5-R9HXBHLO OF PRE SEDATE0/0RESULT:GREATER THAN 80% REDUCTION IN PAIN FOR SEVERAL HOURS POSTPROCEDURESLUIS SANTOS 07/28/2020 5:14:14 PM > ANDREA, CAN YOU PLEASE PUT THE PROCEDURE RESULTS IN THIS PROCEDURE LOG? THANKS. PROCEDURE CODES FA211 ESTABILISHED PATIENT [facility] FACILITY CHARGE DISPOSITION & COMMUNICATION FOLLOW UP POST PROCEDURE (REASON: BILATERAL DIAGNOSTIC LUMBAR FACET BLOCK L4-5,L5-S1) ELECTRONICALLY SIGNED BY CARIDAD HENLEY ON 07/30/2020 AT 12:37 PM EDT DISCLAIMER : THIS IS A VISIT SUMMARY EXTRACTED FROM THE [employer] CHART. IT IS NOT A COPY OF THE [employer] PROGRESS NOTE. ZINA
--- NOTE | 2020-07-31 06:23 | ECWPNPC ---
PATIENT NAME: LOGAN CRAVEN : 1960 GENDER: FEMALE VISIT DATE: 07/27/2020 DISCHARGE DATE: 07/27/20 1058 VISIT LOCKED DATE TIME: PHYSICIAN: ANDREA ELIAS PHYSICIAN PAGER NO: ACTIVE RESOURCE: ANDREA ELIAS REASON FOR APPOINTMENT 1. POST BILATERAL DIAGNOSTIC LUMBAR FACET BLOCK #1 L4-L5, L5-S1 HISTORY OF PRESENT ILLNESS GENERAL: HERE FOR POST PROCEDURE FOLLOW-UP. HAD BILATERAL L4-5, L5-S1 LUMBAR DIAGNOSTIC FACET BLOCK ON 07/12/2020. HOURLY DIARY IS REVIEWED AND SHOWS GREATER THAN 80% REDUCTION IN PAIN FOR SEVERAL DAYS. PAIN IS BEGINNING TO RETURN TO BASELINE. DISCUSSED DIAGNOSTIC TESTING #2 AND PROCEEDING WITH RADIOFREQUENCY.-. FALL RISK SCREENING: SCREENING : NO FALLS REPORTED IN THE LAST YEAR. PAIN SCREENING: PATIENT HAS A COMPLAINT OF ACUTE OR CHRONIC PAIN :YES LOCATION OF PAIN:LOW BACK INTENSITY OF PAIN (SCALE OF 1 TO 10):4 WHAT DOES YOUR PAIN FEEL LIKE:CONTINOUS DURATION:CONSTANT PAIN IS INCREASED BY:ACTIVITIES, PROLONGED STANDING, OTHERS WALKING PAIN IS DECREASED BY:OTHERS RESTING AND HEAT AND ICE NURSING NOTE: -. PAIN CENTER INTAKE QUESTIONS: DO YOU HAVE A HISTORY OF MRSA? :NO DO YOU TAKE A BLOOD THINNERS? :YES ELMIRON DO YOU HAVE ANY BLEEDING DISORDERS? :NO ANY NEW NUMBNESS OR WEAKNESS IN YOUR LEGS OR ARMS? :NO ANY PACEMAKER,DEFIBRILLATOR, OR DORSAL COLUMN STIMULATOR? :NO DO YOU HAVE ANY RASHES OR OPEN SORES? :NO ARE YOU ALLERGIC TO IV DYE? :NO ARE YOU DIABETIC? :NO ANY NEW PROBLEMS WITH YOUR MEDICATIONS? :NO HAVE YOU RECEIVED A VACCINE IN THE PAST 30 DAYS? :NO DO YOU PLAN TO RECEIVE A VACCINE IN THE NEXT 21 DAYS? :NO DO YOU NEED ANY PRESCRIPTION? :NO DO YOU TAKE ANY IMMUNOSUPPRESSIVE MEDICATIONS? :YES LEFLUNOMIDE AND ENBREL SURECLICK IS THERE A CHANCE YOU COULD BE ? :NO ARE YOU BREAST FEEDING? :NO CURRENT MEDICATIONS TAKING VITAMIN D 2000 UNIT CAPSULE 1 TABLET ORALLY ONCE A DAY TAKING CANE . MISCELLANEOUS QUAD CANE _ QD R27 TAKING CALCIUM 600 + D 600-400 MG-UNIT TABLET 1 TABLET ORALLY ONCE A DAY TAKING ELMIRON 100 MG CAPSULE 1 CAPSULE ON AN EMPTY STOMACH 1 TABLET THREE A DAY TAKING LEFLUNOMIDE 20 MG TABLET 1 TABLET ORALLY ONCE A DAY TAKING ENBREL SURECLICK 50 MG/ML SOLUTION AUTO-INJECTOR DIRECTED SUBCUTANEOUS ONCE A WEEK TAKING CYANOCOBALAMIN 500 MCG TABLET 1 TABLET ORALLY 1 EVERY 5 DAYS TAKING CARAFATE 1 GM TABLET 1 TABLET ON AN EMPTY STOMACH ORALLY AC TID TAKING ATORVASTATIN CALCIUM 20 MG TABLET 1 TABLET ORALLY ONCE A DAY TAKING FISH OIL 1000 MG CAPSULE 1 CAPSULE ORALLY ONCE A DAY TAKING ESCITALOPRAM OXALATE 10 MG TABLET 15MG 1.5 TABLET ORALLY ONCE A DAY TAKING ESOMEPRAZOLE MAGNESIUM 40 MG CAPSULE DELAYED RELEASE 1 CAPSULE ORALLY AC BID TAKING CARISOPRODOL 350 MG TABLET 1 TABLET NEEDED ORALLY TID PRN, MDD 3 TAKING HYDROCODONE-ACETAMINOPHEN 5-325 MG TABLET 1 TABLET NEEDED ORALLY TID PRN MDD = 3 MEDICATION LIST REVIEWED AND RECONCILED WITH THE PATIENT PAST MEDICAL HISTORY RA/OSTEOARTHRITIS/FIBROMYALGIA NICOTINE ADDICTION-08/2011 FEV1 2.5L (101%)/RATIO 97%-1 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 GERD/DYSPEPSIA-06/2016 NORMAL EGD/COLON/SB CAPSULE-R HYPERLIPIDEMIA 2B ENDOMETRIOSIS 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 SPENCER 2008 FOLLOWS WITH WOMAN TO WOMAN HISTORY OF TUBULAR ADENOMA-NORMAL COLONOSCOPY APRIL 2009 NORMAL COLONOSCOPY C - RANDOM BIOPSIES-[place] COLONOSCOPY 07/18/16 REINDL CERVICAL DJD STATUS POST MULTILEVEL FUSION-01/2010 MRI STABLE ACDF C BASELINE DJD ATROPHIC VAGINITIS OSTEOPENIA VITAMIN D DEFICIENCY CHRONIC SINUSITIS / NONE LATELY RECURRENT UTI / YEARS AGO CHRONIC DIARRHEA STATUS POST LAPAROSCOPIC CHOLECYSTECTOMY JULY 2009//[id number] CHRONIC DRY EYES MEMORY LOSS 2 INSOMNIA, WORK STRESS-12/2011 NORMAL MRI BRAIN S AND NORMAL WORKUP LUMBAR DJD-L2/3 BULGE C L IF HNP C L L2 COMPRESSION, L3/4 SEVERE CCS C B L3 COMPRESSION BY 03/2017 MRI LONG-TERM DISABILITY-TAKEN OOW 08/05/[address] BARAJAS, 01/2014 FILLED OUT LTD PAPERWORK FOR GUARDIAN-PATIENT DEFERRED WCE INSOMNIA, COOMORBID ANXIETY OCULAR SURFACE DISEASE ALLERGIES METHOTREXATE (ANTI-RHEUMATIC): MIGRANES - SIDE EFFECTS CYMBALTA: RACING PLUSE, SHAKES - ALLERGY WELLBUTRIN: PALPITATIONS, SEVERE - ALLERGY SULFA (FOR ALLERGY USE ONLY): NAUSEA/VOMITING - ALLERGY LYRICA: PALPITATIONS - ALLERGY CELEXA: PALPITATIONS - SIDE EFFECTS ORENCIA: ANAPHYLAXIS - ALLERGY TOPICAL ALOE VERA: SEVERE ITCHING CANNOT TOLERATE ASA BASED PRODUCTS/ NSAIDS: HX STOMACH BLEED - CONTRAINDICATION SURGICAL HISTORY LAPAROSCOPY X2 CHRISTINE BTL 1982 TVH [address] SPENCER 2008 VAGINAL CUFF BX. IRMA CHANDLER NP 03/07 CHOLECYSTECTOMY 06/09 ACDF-C4-T1 10/06 R BREAST [id number] 09/2010 ABOVE L CTR- FISH 10/27/14 L4-L5 FUSION/LAMINECTOMY 09/2013 NORMAL EGD/COLON/SB CAPSULE-R 06/2016 FUSION C5 C6 1999 HYSTERECTOMY 1988 BENIGN MOLE REMOVAL 2018 SOCIAL HISTORY GENERAL: TOBACCO USE ARE YOU A:CURRENT SMOKER ARE YOU INTERESTED IN QUITTING?THINKING ABOUT QUITTING COUNSELED THE PATIENT ON SMOKING CESSATION, EDUCATION MDPTPSLA20/30/2021 HOW MANY CIGARETTES A DAY DO YOU SMOKE?5 OR LESS HOW SOON AFTER YOU WAKE UP DO YOU SMOKE YOUR FIRST CIGARETTE?AFTER 60 MIN HOW OFTEN DO YOU SMOKE CIGARETTES?EVERY DAY PATIENT COUNSELED ON THE DANGERS OF TOBACCO USE AND URGED TO QUIT:05/26/2020 VAPORNO E-CIGARETTENO LATEX QUESTIONNAIRE LATEX ALLERGY : HAVE YOU EVER DEVELOPED ANY TYPE OF REACTION AFTER HANDLING LATEX PRODUCTS SUCH RUBBER GLOVES, CONDOMS, DIAPHRAGMS, BALLOONS, SOCKS, OR UNDERWEAR?NO LATEX ALLERGY : HAVE YOU EVER DEVELOPED ANY TYPE OF REACTION DURING OR AFTER DENTAL APPOINTMENT, VAGINAL/RECTAL EXAMINATION, SURGICAL PROCEDURE, OR ANY OTHER EXPOSURE?NO LATEX RISK : HAVE YOU EVER HAD ANY DIFFICULTY BREATHING OR HIVES AFTER EATING OR HANDLING ANY FRUITS, OR VEGETABLES; SUCH KIWI, BANANAS, STONE FRUITS, OR CHESTNUTSNO LATEX RISK : DO YOU HAVE A PREVIOUS PERSONAL HISTORY OF MORE THAN NINE SURGERIES, SPINA BIFIDA, OR REPEATED CATHERIZATIONS? YES LATEX RISK : ARE YOU FREQUENTLY EXPOSED TO LATEX PRODUCTS IN YOUR OCCUPATION?NO DATE ASKED : 07/27/2020 ALCOHOL USE: NO, ONCE EVERY 4 MONTH. ALCOHOL SCREENING DID YOU HAVE A DRINK CONTAINING ALCOHOL IN THE PAST YEAR?YES HOW OFTEN DID YOU HAVE A DRINK CONTAINING ALCOHOL IN THE PAST YEAR?MONTHLY OR LESS (1 POINT) POINTS1 INTERPRETATIONNEGATIVE RECREATIONAL DRUG USE DRUG USE?NO CAFFEINE CAFFEINE USE?YES 2-3 DAILY SEXUAL HX HAD SEX IN THE LAST 12 MONTHS (VAGINAL, ORAL, OR ANAL)?NO HAVE YOU EVER HAD AN STD?NO HIV / HEP-C SCREENING HIV TEST OFFERED TO PATIENT:YES DATE OFFERED:06/28/2017 TEST ACCEPTED:NO HEP-C TEST OFFERED TO PATIENT:YES DATE OFFERED:06/28/2017 REASON:PATIENT DECLINED TEST ACCEPTED:NO REASON:PATIENT DECLINED MU-ISM [id number] NONE NO HOAHAOISM BELIEFS THAT WOULD IMPACT HEALTH CARE. LANGUAGE LANGUAGES SPOKEN:[place] EDUCATION LEVEL OF EDUCATION:HIGH SCHOOL GED LEARNING BARRIERS / SPECIAL NEEDS CHANGE FROM LAST VISIT?NO BARRIERS TO LEARNING?NO HEARING IMPAIRED?NO TINITUS VISION IMPAIRED?YES :CORRECTIVE LENSES COGNITIVELY IMPAIRED?NO READINESS TO LEARN?YES LEARNING PREFERENCES?NO LEARNING CAPABILITIES PRESENT?YES EMOTIONAL BARRIERS?NO SPECIAL DEVICES?YES :CANE NEEDED CHILDCARE WORKER NEEDED?NO DOMESTIC VIOLENCE DO YOU FEEL SAFE IN YOUR ENVIRONMENT?YES OCCUPATION: DISABLED. DIET: AVOIDS GREASY, FRIED FOODS, DAIRY.TRIES TO EAT SMALLER PORTIONS. EXERCISE: LOWER BACK EXERCISES, WALKS TOLERATED. MARITAL STATUS: .. OTHERS AT HOME: DAUGHTER. - PFS REFERRAL NEEDED?NO CLERGY REFERRAL NEEDED?NO PUBLIC HEALTH REFERRAL NEEDED?NO HAS THE PATIENT BEEN EDUCATED REGARDING HIS/HER PLAN OF CARE?YES HAS THE PATIENT BEEN EDUCATED REGARDING PAIN, THE RISK FOR PAIN, THE IMPORTANCE OF EFFECTIVE PAIN MANAGEMENT, AND THE PAIN ASSESSMENT PROCESS?YES ADVANCE DIRECTIVE ADVANCE DIRECTIVE DISCUSSED WITH PATIENT:YES PT STATES SHE HAS A HEALTH CARE PROXY-RAH ROSARIO [phone] HOSPITALIZATION/MAJOR DIAGNOSTIC PROCEDURE SURGICAL RELATED REVIEW OF SYSTEMS CONSTITUTIONAL: ANY RECENT FEVER NO . CHILLS NO . WEIGHT CHANGE OF UNKNOWN REASONS NO . GASTROENTEROLOGY: NEW UNEXPLAINABLE CHANGES IN BOWEL CONTROL NO . CONSTIPATION NO . GENITOURINARY: ANY NEW CHANGE IN BLADDER CONTROL? NO . NEUROLOGY: NEW ONSET DIZZINESS OR NEUROLOGICAL CHANGES NOT MENTIONED NO . NEW NUMBNESS OR PAIN PATTERNS NOT MENTIONED AND PERTINENT TO TODAY'S VISIT NO . CARDIOLOGY: NEW CHEST PRESSURE NO . PATIENT DENIES NO . RESPIRATORY: UNEXPLAINABLE COUGH NO . NEW SHORTNESS OF BREATH NO . VITAL SIGNS WT 125 LBS, HT 64 IN, BMI 21.45 INDEX, BP 126/55 MM HG, HR 85 /MIN, RR 18 /MIN, TEMP 98.3 F, OXYGEN SAT % 96%, SAFE IN ENV? (Y/N) YEST.CARYN CORLEY. EXAMINATION GENERAL EXAMINATION: GENERAL AWAKE,ALERT ,PLEASANT . PSYCH AFFECT NORMAL . LUNGS: LUNG LINDSEY ARE CLEAR TO AUSCULTATION BILATERALLY. GOOD MOVEMENT OF AIR . HEART: S1, S2 IN A REGULAR RATE AND RHYTHM. NO SIGNIFICANT MURMURS, RUBS OR GALLOPS NOTED . MUSCULOSKELETAL: MUSCLE STRENGTH TESTING 5/5 BILATERAL LOWER EXTREMITIES. LUMBAR: PALPATION: + FOR PAIN OVER L/S SPINE. + FOR PAIN OVER L/S PARASPINALS WELL-HEALED SURGICAL SCAR L/S AXIS. DIAGNOSTIC TESTS REVIEWEDMRI L/S SPINE . 06/2019. ASSESSMENTS SPONDYLOSIS WITHOUT MYELOPATHY OR RADICULOPATHY, LUMBAR REGION - M47.816 (PRIMARY) OTHER CHRONIC PAIN - G89.29 POST LAMINECTOMY SYNDROME - M96.1 TREATMENT SPONDYLOSIS WITHOUT MYELOPATHY OR RADICULOPATHY, LUMBAR REGION NOTES: BILATERAL DIAGNOSTIC LUMBAR FACET BLOCK L4-5,L5-S1 PRINTED AND REVIEWED PRE PROCEDURE WITH PATIENT EZEKIEL CORLEY. OTHER CHRONIC PAIN PAIN PROCEDURE LOGDATE OF PROCEDURE1PROCEDURE:BILATERAL DIAGNOSTIC LUMBAR FACET BLOCK #1 L4-L5,L5-G2DOCUEQ OF PRE SEDATE0/0RESULT:GREATER THAN 80% REDUCTION IN PAIN FOR SEVERAL HOURS POSTPROCEDURESLUIS SANTOS 07/28/2020 5:14:14 PM > ANDREA, CAN YOU PLEASE PUT THE PROCEDURE RESULTS IN THIS PROCEDURE LOG? THANKS. PROCEDURE CODES FA211 ESTABILISHED PATIENT [facility] FACILITY CHARGE DISPOSITION & COMMUNICATION FOLLOW UP POST PROCEDURE (REASON: BILATERAL DIAGNOSTIC LUMBAR FACET BLOCK L4-5,L5-S1) ELECTRONICALLY SIGNED BY CARIDAD HENLEY ON 07/30/2020 AT 12:37 PM EDT DISCLAIMER : THIS IS A VISIT SUMMARY EXTRACTED FROM THE [employer] CHART. IT IS NOT A COPY OF THE [employer] PROGRESS NOTE. ZINA
--- NOTE | 2020-07-31 06:25 | ECWPNPC ---
PATIENT NAME: LOGAN CRAVEN : 1960 GENDER: FEMALE VISIT DATE: 07/27/2020 DISCHARGE DATE: 07/27/20 1058 VISIT LOCKED DATE TIME: PHYSICIAN: ANDREA ELIAS PHYSICIAN PAGER NO: ACTIVE RESOURCE: ANDREA ELIAS REASON FOR APPOINTMENT 1. POST BILATERAL DIAGNOSTIC LUMBAR FACET BLOCK #1 L4-L5, L5-S1 HISTORY OF PRESENT ILLNESS GENERAL: HERE FOR POST PROCEDURE FOLLOW-UP. HAD BILATERAL L4-5, L5-S1 LUMBAR DIAGNOSTIC FACET BLOCK ON 07/12/2020. HOURLY DIARY IS REVIEWED AND SHOWS GREATER THAN 80% REDUCTION IN PAIN FOR SEVERAL DAYS. PAIN IS BEGINNING TO RETURN TO BASELINE. DISCUSSED DIAGNOSTIC TESTING #2 AND PROCEEDING WITH RADIOFREQUENCY.-. FALL RISK SCREENING: SCREENING : NO FALLS REPORTED IN THE LAST YEAR. PAIN SCREENING: PATIENT HAS A COMPLAINT OF ACUTE OR CHRONIC PAIN :YES LOCATION OF PAIN:LOW BACK INTENSITY OF PAIN (SCALE OF 1 TO 10):4 WHAT DOES YOUR PAIN FEEL LIKE:CONTINOUS DURATION:CONSTANT PAIN IS INCREASED BY:ACTIVITIES, PROLONGED STANDING, OTHERS WALKING PAIN IS DECREASED BY:OTHERS RESTING AND HEAT AND ICE NURSING NOTE: -. PAIN CENTER INTAKE QUESTIONS: DO YOU HAVE A HISTORY OF MRSA? :NO DO YOU TAKE A BLOOD THINNERS? :YES ELMIRON DO YOU HAVE ANY BLEEDING DISORDERS? :NO ANY NEW NUMBNESS OR WEAKNESS IN YOUR LEGS OR ARMS? :NO ANY PACEMAKER,DEFIBRILLATOR, OR DORSAL COLUMN STIMULATOR? :NO DO YOU HAVE ANY RASHES OR OPEN SORES? :NO ARE YOU ALLERGIC TO IV DYE? :NO ARE YOU DIABETIC? :NO ANY NEW PROBLEMS WITH YOUR MEDICATIONS? :NO HAVE YOU RECEIVED A VACCINE IN THE PAST 30 DAYS? :NO DO YOU PLAN TO RECEIVE A VACCINE IN THE NEXT 21 DAYS? :NO DO YOU NEED ANY PRESCRIPTION? :NO DO YOU TAKE ANY IMMUNOSUPPRESSIVE MEDICATIONS? :YES LEFLUNOMIDE AND ENBREL SURECLICK IS THERE A CHANCE YOU COULD BE ? :NO ARE YOU BREAST FEEDING? :NO CURRENT MEDICATIONS TAKING VITAMIN D 2000 UNIT CAPSULE 1 TABLET ORALLY ONCE A DAY TAKING CANE . MISCELLANEOUS QUAD CANE _ QD R27 TAKING CALCIUM 600 + D 600-400 MG-UNIT TABLET 1 TABLET ORALLY ONCE A DAY TAKING ELMIRON 100 MG CAPSULE 1 CAPSULE ON AN EMPTY STOMACH 1 TABLET THREE A DAY TAKING LEFLUNOMIDE 20 MG TABLET 1 TABLET ORALLY ONCE A DAY TAKING ENBREL SURECLICK 50 MG/ML SOLUTION AUTO-INJECTOR DIRECTED SUBCUTANEOUS ONCE A WEEK TAKING CYANOCOBALAMIN 500 MCG TABLET 1 TABLET ORALLY 1 EVERY 5 DAYS TAKING CARAFATE 1 GM TABLET 1 TABLET ON AN EMPTY STOMACH ORALLY AC TID TAKING ATORVASTATIN CALCIUM 20 MG TABLET 1 TABLET ORALLY ONCE A DAY TAKING FISH OIL 1000 MG CAPSULE 1 CAPSULE ORALLY ONCE A DAY TAKING ESCITALOPRAM OXALATE 10 MG TABLET 15MG 1.5 TABLET ORALLY ONCE A DAY TAKING ESOMEPRAZOLE MAGNESIUM 40 MG CAPSULE DELAYED RELEASE 1 CAPSULE ORALLY AC BID TAKING CARISOPRODOL 350 MG TABLET 1 TABLET NEEDED ORALLY TID PRN, MDD 3 TAKING HYDROCODONE-ACETAMINOPHEN 5-325 MG TABLET 1 TABLET NEEDED ORALLY TID PRN MDD = 3 MEDICATION LIST REVIEWED AND RECONCILED WITH THE PATIENT PAST MEDICAL HISTORY RA/OSTEOARTHRITIS/FIBROMYALGIA NICOTINE ADDICTION-08/2011 FEV1 2.5L (101%)/RATIO 97%-1 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 GERD/DYSPEPSIA-06/2016 NORMAL EGD/COLON/SB CAPSULE-R HYPERLIPIDEMIA 2B ENDOMETRIOSIS 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 SPENCER 2008 FOLLOWS WITH WOMAN TO WOMAN HISTORY OF TUBULAR ADENOMA-NORMAL COLONOSCOPY APRIL 2009 NORMAL COLONOSCOPY C - RANDOM BIOPSIES-[place] COLONOSCOPY 07/18/16 REINDL CERVICAL DJD STATUS POST MULTILEVEL FUSION-01/2010 MRI STABLE ACDF C BASELINE DJD ATROPHIC VAGINITIS OSTEOPENIA VITAMIN D DEFICIENCY CHRONIC SINUSITIS / NONE LATELY RECURRENT UTI / YEARS AGO CHRONIC DIARRHEA STATUS POST LAPAROSCOPIC CHOLECYSTECTOMY JULY 2009//[id number] CHRONIC DRY EYES MEMORY LOSS 2 INSOMNIA, WORK STRESS-12/2011 NORMAL MRI BRAIN S AND NORMAL WORKUP LUMBAR DJD-L2/3 BULGE C L IF HNP C L L2 COMPRESSION, L3/4 SEVERE CCS C B L3 COMPRESSION BY 03/2017 MRI LONG-TERM DISABILITY-TAKEN OOW 08/05/[address] BARAJAS, 01/2014 FILLED OUT LTD PAPERWORK FOR GUARDIAN-PATIENT DEFERRED WCE INSOMNIA, COOMORBID ANXIETY OCULAR SURFACE DISEASE ALLERGIES METHOTREXATE (ANTI-RHEUMATIC): MIGRANES - SIDE EFFECTS CYMBALTA: RACING PLUSE, SHAKES - ALLERGY WELLBUTRIN: PALPITATIONS, SEVERE - ALLERGY SULFA (FOR ALLERGY USE ONLY): NAUSEA/VOMITING - ALLERGY LYRICA: PALPITATIONS - ALLERGY CELEXA: PALPITATIONS - SIDE EFFECTS ORENCIA: ANAPHYLAXIS - ALLERGY TOPICAL ALOE VERA: SEVERE ITCHING CANNOT TOLERATE ASA BASED PRODUCTS/ NSAIDS: HX STOMACH BLEED - CONTRAINDICATION SURGICAL HISTORY LAPAROSCOPY X2 CHRISTINE BTL 1982 TVH [address] SPENCER 2008 VAGINAL CUFF BX. IRMA CHANDLER NP 03/07 CHOLECYSTECTOMY 06/09 ACDF-C4-T1 10/06 R BREAST [id number] 09/2010 ABOVE L CTR- FISH 10/27/14 L4-L5 FUSION/LAMINECTOMY 09/2013 NORMAL EGD/COLON/SB CAPSULE-R 06/2016 FUSION C5 C6 1999 HYSTERECTOMY 1988 BENIGN MOLE REMOVAL 2018 SOCIAL HISTORY GENERAL: TOBACCO USE ARE YOU A:CURRENT SMOKER ARE YOU INTERESTED IN QUITTING?THINKING ABOUT QUITTING COUNSELED THE PATIENT ON SMOKING CESSATION, EDUCATION [id number]/30/2021 HOW MANY CIGARETTES A DAY DO YOU SMOKE?5 OR LESS HOW SOON AFTER YOU WAKE UP DO YOU SMOKE YOUR FIRST CIGARETTE?AFTER 60 MIN HOW OFTEN DO YOU SMOKE CIGARETTES?EVERY DAY PATIENT COUNSELED ON THE DANGERS OF TOBACCO USE AND URGED TO QUIT:05/26/2020 VAPORNO E-CIGARETTENO LATEX QUESTIONNAIRE LATEX ALLERGY : HAVE YOU EVER DEVELOPED ANY TYPE OF REACTION AFTER HANDLING LATEX PRODUCTS SUCH RUBBER GLOVES, CONDOMS, DIAPHRAGMS, BALLOONS, SOCKS, OR UNDERWEAR?NO LATEX ALLERGY : HAVE YOU EVER DEVELOPED ANY TYPE OF REACTION DURING OR AFTER DENTAL APPOINTMENT, VAGINAL/RECTAL EXAMINATION, SURGICAL PROCEDURE, OR ANY OTHER EXPOSURE?NO LATEX RISK : HAVE YOU EVER HAD ANY DIFFICULTY BREATHING OR HIVES AFTER EATING OR HANDLING ANY FRUITS, OR VEGETABLES; SUCH KIWI, BANANAS, STONE FRUITS, OR CHESTNUTSNO LATEX RISK : DO YOU HAVE A PREVIOUS PERSONAL HISTORY OF MORE THAN NINE SURGERIES, SPINA BIFIDA, OR REPEATED CATHERIZATIONS? YES LATEX RISK : ARE YOU FREQUENTLY EXPOSED TO LATEX PRODUCTS IN YOUR OCCUPATION?NO DATE ASKED : 07/27/2020 ALCOHOL USE: NO, ONCE EVERY 4 MONTH. ALCOHOL SCREENING DID YOU HAVE A DRINK CONTAINING ALCOHOL IN THE PAST YEAR?YES HOW OFTEN DID YOU HAVE A DRINK CONTAINING ALCOHOL IN THE PAST YEAR?MONTHLY OR LESS (1 POINT) POINTS1 INTERPRETATIONNEGATIVE RECREATIONAL DRUG USE DRUG USE?NO CAFFEINE CAFFEINE USE?YES 2-3 DAILY SEXUAL HX HAD SEX IN THE LAST 12 MONTHS (VAGINAL, ORAL, OR ANAL)?NO HAVE YOU EVER HAD AN STD?NO HIV / HEP-C SCREENING HIV TEST OFFERED TO PATIENT:YES DATE OFFERED:06/28/2017 TEST ACCEPTED:NO HEP-C TEST OFFERED TO PATIENT:YES DATE OFFERED:06/28/2017 REASON:PATIENT DECLINED TEST ACCEPTED:NO REASON:PATIENT DECLINED PENTECOSTALISM [id number] NONE NO SABIANISM BELIEFS THAT WOULD IMPACT HEALTH CARE. LANGUAGE LANGUAGES SPOKEN:SPANISH EDUCATION LEVEL OF EDUCATION:HIGH SCHOOL GED LEARNING BARRIERS / SPECIAL NEEDS CHANGE FROM LAST VISIT?NO BARRIERS TO LEARNING?NO HEARING IMPAIRED?NO TINITUS VISION IMPAIRED?YES :CORRECTIVE LENSES COGNITIVELY IMPAIRED?NO READINESS TO LEARN?YES LEARNING PREFERENCES?NO LEARNING CAPABILITIES PRESENT?YES EMOTIONAL BARRIERS?NO SPECIAL DEVICES?YES :CANE NEEDED SEAT INSTALLER NEEDED?NO DOMESTIC VIOLENCE DO YOU FEEL SAFE IN YOUR ENVIRONMENT?YES OCCUPATION: DISABLED. DIET: AVOIDS GREASY, FRIED FOODS, DAIRY.TRIES TO EAT SMALLER PORTIONS. EXERCISE: LOWER BACK EXERCISES, WALKS TOLERATED. MARITAL STATUS: .. OTHERS AT HOME: DAUGHTER. - PFS REFERRAL NEEDED?NO CLERGY REFERRAL NEEDED?NO PUBLIC HEALTH REFERRAL NEEDED?NO HAS THE PATIENT BEEN EDUCATED REGARDING HIS/HER PLAN OF CARE?YES HAS THE PATIENT BEEN EDUCATED REGARDING PAIN, THE RISK FOR PAIN, THE IMPORTANCE OF EFFECTIVE PAIN MANAGEMENT, AND THE PAIN ASSESSMENT PROCESS?YES ADVANCE DIRECTIVE ADVANCE DIRECTIVE DISCUSSED WITH PATIENT:YES PT STATES SHE HAS A HEALTH CARE PROXY-RAH ROSARIO [phone] HOSPITALIZATION/MAJOR DIAGNOSTIC PROCEDURE SURGICAL RELATED REVIEW OF SYSTEMS CONSTITUTIONAL: ANY RECENT FEVER NO . CHILLS NO . WEIGHT CHANGE OF UNKNOWN REASONS NO . GASTROENTEROLOGY: NEW UNEXPLAINABLE CHANGES IN BOWEL CONTROL NO . CONSTIPATION NO . GENITOURINARY: ANY NEW CHANGE IN BLADDER CONTROL? NO . NEUROLOGY: NEW ONSET DIZZINESS OR NEUROLOGICAL CHANGES NOT MENTIONED NO . NEW NUMBNESS OR PAIN PATTERNS NOT MENTIONED AND PERTINENT TO TODAY'S VISIT NO . CARDIOLOGY: NEW CHEST PRESSURE NO . PATIENT DENIES NO . RESPIRATORY: UNEXPLAINABLE COUGH NO . NEW SHORTNESS OF BREATH NO . VITAL SIGNS WT 125 LBS, HT 64 IN, BMI 21.45 INDEX, BP 126/55 MM HG, HR 85 /MIN, RR 18 /MIN, TEMP 98.3 F, OXYGEN SAT % 96%, SAFE IN ENV? (Y/N) YEST.CARYN CORLEY. EXAMINATION GENERAL EXAMINATION: GENERAL AWAKE,ALERT ,PLEASANT . PSYCH AFFECT NORMAL . LUNGS: LUNG LINDSEY ARE CLEAR TO AUSCULTATION BILATERALLY. GOOD MOVEMENT OF AIR . HEART: S1, S2 IN A REGULAR RATE AND RHYTHM. NO SIGNIFICANT MURMURS, RUBS OR GALLOPS NOTED . MUSCULOSKELETAL: MUSCLE STRENGTH TESTING 5/5 BILATERAL LOWER EXTREMITIES. LUMBAR: PALPATION: + FOR PAIN OVER L/S SPINE. + FOR PAIN OVER L/S PARASPINALS WELL-HEALED SURGICAL SCAR L/S AXIS. DIAGNOSTIC TESTS REVIEWEDMRI L/S SPINE . 06/2019. ASSESSMENTS SPONDYLOSIS WITHOUT MYELOPATHY OR RADICULOPATHY, LUMBAR REGION - M47.816 (PRIMARY) OTHER CHRONIC PAIN - G89.29 POST LAMINECTOMY SYNDROME - M96.1 TREATMENT SPONDYLOSIS WITHOUT MYELOPATHY OR RADICULOPATHY, LUMBAR REGION NOTES: BILATERAL DIAGNOSTIC LUMBAR FACET BLOCK L4-5,L5-S1 PRINTED AND REVIEWED PRE PROCEDURE WITH PATIENT EZEKIEL CORLEY. OTHER CHRONIC PAIN PAIN PROCEDURE LOGDATE OF PROCEDURE1PROCEDURE:BILATERAL DIAGNOSTIC LUMBAR FACET BLOCK #1 L4-L5,L5-V5GEFAOJ OF PRE SEDATE0/0RESULT:GREATER THAN 80% REDUCTION IN PAIN FOR SEVERAL HOURS POSTPROCEDURESLUIS SANTOS 07/28/2020 5:14:14 PM > ANDREA, CAN YOU PLEASE PUT THE PROCEDURE RESULTS IN THIS PROCEDURE LOG? THANKS. PROCEDURE CODES FA211 ESTABILISHED PATIENT [facility] FACILITY CHARGE DISPOSITION & COMMUNICATION FOLLOW UP POST PROCEDURE (REASON: BILATERAL DIAGNOSTIC LUMBAR FACET BLOCK L4-5,L5-S1) ELECTRONICALLY SIGNED BY CARIDAD HENLEY ON 07/30/2020 AT 12:37 PM EDT DISCLAIMER : THIS IS A VISIT SUMMARY EXTRACTED FROM THE [employer] CHART. IT IS NOT A COPY OF THE [email or web address] PROGRESS NOTE. ZINA
--- NOTE | 2020-07-31 06:27 | ECWPNPC ---
PATIENT NAME: LOGAN CRAVEN : 1960 GENDER: FEMALE VISIT DATE: 07/27/2020 DISCHARGE DATE: 07/27/20 1058 VISIT LOCKED DATE TIME: PHYSICIAN: ANDREA ELIAS PHYSICIAN PAGER NO: ACTIVE RESOURCE: ANDREA ELIAS REASON FOR APPOINTMENT 1. POST BILATERAL DIAGNOSTIC LUMBAR FACET BLOCK #1 L4-L5, L5-S1 HISTORY OF PRESENT ILLNESS GENERAL: HERE FOR POST PROCEDURE FOLLOW-UP. HAD BILATERAL L4-5, L5-S1 LUMBAR DIAGNOSTIC FACET BLOCK ON 07/12/2020. HOURLY DIARY IS REVIEWED AND SHOWS GREATER THAN 80% REDUCTION IN PAIN FOR SEVERAL DAYS. PAIN IS BEGINNING TO RETURN TO BASELINE. DISCUSSED DIAGNOSTIC TESTING #2 AND PROCEEDING WITH RADIOFREQUENCY.-. FALL RISK SCREENING: SCREENING : NO FALLS REPORTED IN THE LAST YEAR. PAIN SCREENING: PATIENT HAS A COMPLAINT OF ACUTE OR CHRONIC PAIN :YES LOCATION OF PAIN:LOW BACK INTENSITY OF PAIN (SCALE OF 1 TO 10):4 WHAT DOES YOUR PAIN FEEL LIKE:CONTINOUS DURATION:CONSTANT PAIN IS INCREASED BY:ACTIVITIES, PROLONGED STANDING, OTHERS WALKING PAIN IS DECREASED BY:OTHERS RESTING AND HEAT AND ICE NURSING NOTE: -. PAIN CENTER INTAKE QUESTIONS: DO YOU HAVE A HISTORY OF MRSA? :NO DO YOU TAKE A BLOOD THINNERS? :YES ELMIRON DO YOU HAVE ANY BLEEDING DISORDERS? :NO ANY NEW NUMBNESS OR WEAKNESS IN YOUR LEGS OR ARMS? :NO ANY PACEMAKER,DEFIBRILLATOR, OR DORSAL COLUMN STIMULATOR? :NO DO YOU HAVE ANY RASHES OR OPEN SORES? :NO ARE YOU ALLERGIC TO IV DYE? :NO ARE YOU DIABETIC? :NO ANY NEW PROBLEMS WITH YOUR MEDICATIONS? :NO HAVE YOU RECEIVED A VACCINE IN THE PAST 30 DAYS? :NO DO YOU PLAN TO RECEIVE A VACCINE IN THE NEXT 21 DAYS? :NO DO YOU NEED ANY PRESCRIPTION? :NO DO YOU TAKE ANY IMMUNOSUPPRESSIVE MEDICATIONS? :YES LEFLUNOMIDE AND ENBREL SURECLICK IS THERE A CHANCE YOU COULD BE ? :NO ARE YOU BREAST FEEDING? :NO CURRENT MEDICATIONS TAKING VITAMIN D 2000 UNIT CAPSULE 1 TABLET ORALLY ONCE A DAY TAKING CANE . MISCELLANEOUS QUAD CANE _ QD R27 TAKING CALCIUM 600 + D 600-400 MG-UNIT TABLET 1 TABLET ORALLY ONCE A DAY TAKING ELMIRON 100 MG CAPSULE 1 CAPSULE ON AN EMPTY STOMACH 1 TABLET THREE A DAY TAKING LEFLUNOMIDE 20 MG TABLET 1 TABLET ORALLY ONCE A DAY TAKING ENBREL SURECLICK 50 MG/ML SOLUTION AUTO-INJECTOR DIRECTED SUBCUTANEOUS ONCE A WEEK TAKING CYANOCOBALAMIN 500 MCG TABLET 1 TABLET ORALLY 1 EVERY 5 DAYS TAKING CARAFATE 1 GM TABLET 1 TABLET ON AN EMPTY STOMACH ORALLY AC TID TAKING ATORVASTATIN CALCIUM 20 MG TABLET 1 TABLET ORALLY ONCE A DAY TAKING FISH OIL 1000 MG CAPSULE 1 CAPSULE ORALLY ONCE A DAY TAKING ESCITALOPRAM OXALATE 10 MG TABLET 15MG 1.5 TABLET ORALLY ONCE A DAY TAKING ESOMEPRAZOLE MAGNESIUM 40 MG CAPSULE DELAYED RELEASE 1 CAPSULE ORALLY AC BID TAKING CARISOPRODOL 350 MG TABLET 1 TABLET NEEDED ORALLY TID PRN, MDD 3 TAKING HYDROCODONE-ACETAMINOPHEN 5-325 MG TABLET 1 TABLET NEEDED ORALLY TID PRN MDD = 3 MEDICATION LIST REVIEWED AND RECONCILED WITH THE PATIENT PAST MEDICAL HISTORY RA/OSTEOARTHRITIS/FIBROMYALGIA NICOTINE ADDICTION-08/2011 FEV1 2.5L (101%)/RATIO 97%-1 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 GERD/DYSPEPSIA-06/2016 NORMAL EGD/COLON/SB CAPSULE-R HYPERLIPIDEMIA 2B ENDOMETRIOSIS 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 SPENCER 2008 FOLLOWS WITH WOMAN TO WOMAN HISTORY OF TUBULAR ADENOMA-NORMAL COLONOSCOPY APRIL 2009 NORMAL COLONOSCOPY C - RANDOM BIOPSIES-[place] COLONOSCOPY 07/18/16 REINDL CERVICAL DJD STATUS POST MULTILEVEL FUSION-01/2010 MRI STABLE ACDF C BASELINE DJD ATROPHIC VAGINITIS OSTEOPENIA VITAMIN D DEFICIENCY CHRONIC SINUSITIS / NONE LATELY RECURRENT UTI / YEARS AGO CHRONIC DIARRHEA STATUS POST LAPAROSCOPIC CHOLECYSTECTOMY JULY 2009//[id number] CHRONIC DRY EYES MEMORY LOSS 2 INSOMNIA, WORK STRESS-12/2011 NORMAL MRI BRAIN S AND NORMAL WORKUP LUMBAR DJD-L2/3 BULGE C L IF HNP C L L2 COMPRESSION, L3/4 SEVERE CCS C B L3 COMPRESSION BY 03/2017 MRI LONG-TERM DISABILITY-TAKEN OOW 08/05/[address] BARAJAS, 01/2014 FILLED OUT LTD PAPERWORK FOR GUARDIAN-PATIENT DEFERRED WCE INSOMNIA, COOMORBID ANXIETY OCULAR SURFACE DISEASE ALLERGIES METHOTREXATE (ANTI-RHEUMATIC): MIGRANES - SIDE EFFECTS CYMBALTA: RACING PLUSE, SHAKES - ALLERGY WELLBUTRIN: PALPITATIONS, SEVERE - ALLERGY SULFA (FOR ALLERGY USE ONLY): NAUSEA/VOMITING - ALLERGY LYRICA: PALPITATIONS - ALLERGY CELEXA: PALPITATIONS - SIDE EFFECTS ORENCIA: ANAPHYLAXIS - ALLERGY TOPICAL ALOE VERA: SEVERE ITCHING CANNOT TOLERATE ASA BASED PRODUCTS/ NSAIDS: HX STOMACH BLEED - CONTRAINDICATION SURGICAL HISTORY LAPAROSCOPY X2 CHRISTINE BTL 1982 TVH [address] SPENCER 2008 VAGINAL CUFF BX. IRMA CHANDLER NP 03/07 CHOLECYSTECTOMY 06/09 ACDF-C4-T1 10/06 R BREAST [id number] 09/2010 ABOVE L CTR- FISH 10/27/14 L4-L5 FUSION/LAMINECTOMY 09/2013 NORMAL EGD/COLON/SB CAPSULE-R 06/2016 FUSION C5 C6 1999 HYSTERECTOMY 1988 BENIGN MOLE REMOVAL 2018 SOCIAL HISTORY GENERAL: TOBACCO USE ARE YOU A:CURRENT SMOKER ARE YOU INTERESTED IN QUITTING?THINKING ABOUT QUITTING COUNSELED THE PATIENT ON SMOKING CESSATION, EDUCATION SQCIFUTR25/30/2021 HOW MANY CIGARETTES A DAY DO YOU SMOKE?5 OR LESS HOW SOON AFTER YOU WAKE UP DO YOU SMOKE YOUR FIRST CIGARETTE?AFTER 60 MIN HOW OFTEN DO YOU SMOKE CIGARETTES?EVERY DAY PATIENT COUNSELED ON THE DANGERS OF TOBACCO USE AND URGED TO QUIT:05/26/2020 VAPORNO E-CIGARETTENO LATEX QUESTIONNAIRE LATEX ALLERGY : HAVE YOU EVER DEVELOPED ANY TYPE OF REACTION AFTER HANDLING LATEX PRODUCTS SUCH RUBBER GLOVES, CONDOMS, DIAPHRAGMS, BALLOONS, SOCKS, OR UNDERWEAR?NO LATEX ALLERGY : HAVE YOU EVER DEVELOPED ANY TYPE OF REACTION DURING OR AFTER DENTAL APPOINTMENT, VAGINAL/RECTAL EXAMINATION, SURGICAL PROCEDURE, OR ANY OTHER EXPOSURE?NO LATEX RISK : HAVE YOU EVER HAD ANY DIFFICULTY BREATHING OR HIVES AFTER EATING OR HANDLING ANY FRUITS, OR VEGETABLES; SUCH KIWI, BANANAS, STONE FRUITS, OR CHESTNUTSNO LATEX RISK : DO YOU HAVE A PREVIOUS PERSONAL HISTORY OF MORE THAN NINE SURGERIES, SPINA BIFIDA, OR REPEATED CATHERIZATIONS? YES LATEX RISK : ARE YOU FREQUENTLY EXPOSED TO LATEX PRODUCTS IN YOUR OCCUPATION?NO DATE ASKED : 07/27/2020 ALCOHOL USE: NO, ONCE EVERY 4 MONTH. ALCOHOL SCREENING DID YOU HAVE A DRINK CONTAINING ALCOHOL IN THE PAST YEAR?YES HOW OFTEN DID YOU HAVE A DRINK CONTAINING ALCOHOL IN THE PAST YEAR?MONTHLY OR LESS (1 POINT) POINTS1 INTERPRETATIONNEGATIVE RECREATIONAL DRUG USE DRUG USE?NO CAFFEINE CAFFEINE USE?YES 2-3 DAILY SEXUAL HX HAD SEX IN THE LAST 12 MONTHS (VAGINAL, ORAL, OR ANAL)?NO HAVE YOU EVER HAD AN STD?NO HIV / HEP-C SCREENING HIV TEST OFFERED TO PATIENT:YES DATE OFFERED:06/28/2017 TEST ACCEPTED:NO HEP-C TEST OFFERED TO PATIENT:YES DATE OFFERED:06/28/2017 REASON:PATIENT DECLINED TEST ACCEPTED:NO REASON:PATIENT DECLINED ZOROASTRIANISM [id number] NONE NO ANABAPTISM BELIEFS THAT WOULD IMPACT HEALTH CARE. LANGUAGE LANGUAGES SPOKEN:UKRAINIAN EDUCATION LEVEL OF EDUCATION:HIGH SCHOOL GED LEARNING BARRIERS / SPECIAL NEEDS CHANGE FROM LAST VISIT?NO BARRIERS TO LEARNING?NO HEARING IMPAIRED?NO TINITUS VISION IMPAIRED?YES :CORRECTIVE LENSES COGNITIVELY IMPAIRED?NO READINESS TO LEARN?YES LEARNING PREFERENCES?NO LEARNING CAPABILITIES PRESENT?YES EMOTIONAL BARRIERS?NO SPECIAL DEVICES?YES :CANE NEEDED MANAGER BUILDING NEEDED?NO DOMESTIC VIOLENCE DO YOU FEEL SAFE IN YOUR ENVIRONMENT?YES OCCUPATION: DISABLED. DIET: AVOIDS GREASY, FRIED FOODS, DAIRY.TRIES TO EAT SMALLER PORTIONS. EXERCISE: LOWER BACK EXERCISES, WALKS TOLERATED. MARITAL STATUS: .. OTHERS AT HOME: DAUGHTER. - PFS REFERRAL NEEDED?NO CLERGY REFERRAL NEEDED?NO PUBLIC HEALTH REFERRAL NEEDED?NO HAS THE PATIENT BEEN EDUCATED REGARDING HIS/HER PLAN OF CARE?YES HAS THE PATIENT BEEN EDUCATED REGARDING PAIN, THE RISK FOR PAIN, THE IMPORTANCE OF EFFECTIVE PAIN MANAGEMENT, AND THE PAIN ASSESSMENT PROCESS?YES ADVANCE DIRECTIVE ADVANCE DIRECTIVE DISCUSSED WITH PATIENT:YES PT STATES SHE HAS A HEALTH CARE PROXY-RAH ROSARIO [phone] HOSPITALIZATION/MAJOR DIAGNOSTIC PROCEDURE SURGICAL RELATED REVIEW OF SYSTEMS CONSTITUTIONAL: ANY RECENT FEVER NO . CHILLS NO . WEIGHT CHANGE OF UNKNOWN REASONS NO . GASTROENTEROLOGY: NEW UNEXPLAINABLE CHANGES IN BOWEL CONTROL NO . CONSTIPATION NO . GENITOURINARY: ANY NEW CHANGE IN BLADDER CONTROL? NO . NEUROLOGY: NEW ONSET DIZZINESS OR NEUROLOGICAL CHANGES NOT MENTIONED NO . NEW NUMBNESS OR PAIN PATTERNS NOT MENTIONED AND PERTINENT TO TODAY'S VISIT NO . CARDIOLOGY: NEW CHEST PRESSURE NO . PATIENT DENIES NO . RESPIRATORY: UNEXPLAINABLE COUGH NO . NEW SHORTNESS OF BREATH NO . VITAL SIGNS WT 125 LBS, HT 64 IN, BMI 21.45 INDEX, BP 126/55 MM HG, HR 85 /MIN, RR 18 /MIN, TEMP 98.3 F, OXYGEN SAT % 96%, SAFE IN ENV? (Y/N) YEST.CARNY CORLEY. EXAMINATION GENERAL EXAMINATION: GENERAL AWAKE,ALERT ,PLEASANT . PSYCH AFFECT NORMAL . LUNGS: LUNG LINDSEY ARE CLEAR TO AUSCULTATION BILATERALLY. GOOD MOVEMENT OF AIR . HEART: S1, S2 IN A REGULAR RATE AND RHYTHM. NO SIGNIFICANT MURMURS, RUBS OR GALLOPS NOTED . MUSCULOSKELETAL: MUSCLE STRENGTH TESTING 5/5 BILATERAL LOWER EXTREMITIES. LUMBAR: PALPATION: + FOR PAIN OVER L/S SPINE. + FOR PAIN OVER L/S PARASPINALS WELL-HEALED SURGICAL SCAR L/S AXIS. DIAGNOSTIC TESTS REVIEWEDMRI L/S SPINE . 06/2019. ASSESSMENTS SPONDYLOSIS WITHOUT MYELOPATHY OR RADICULOPATHY, LUMBAR REGION - M47.816 (PRIMARY) OTHER CHRONIC PAIN - G89.29 POST LAMINECTOMY SYNDROME - M96.1 TREATMENT SPONDYLOSIS WITHOUT MYELOPATHY OR RADICULOPATHY, LUMBAR REGION NOTES: BILATERAL DIAGNOSTIC LUMBAR FACET BLOCK L4-5,L5-S1 PRINTED AND REVIEWED PRE PROCEDURE WITH PATIENT EZEKIEL CORLEY. OTHER CHRONIC PAIN PAIN PROCEDURE LOGDATE OF PROCEDURE1PROCEDURE:BILATERAL DIAGNOSTIC LUMBAR FACET BLOCK #1 L4-L5,L5-R4NMDGBY OF PRE SEDATE0/0RESULT:GREATER THAN 80% REDUCTION IN PAIN FOR SEVERAL HOURS POSTPROCEDURESLUIS SANTOS 07/28/2020 5:14:14 PM > ANDREA, CAN YOU PLEASE PUT THE PROCEDURE RESULTS IN THIS PROCEDURE LOG? THANKS. PROCEDURE CODES FA211 ESTABILISHED PATIENT [facility] FACILITY CHARGE DISPOSITION & COMMUNICATION FOLLOW UP POST PROCEDURE (REASON: BILATERAL DIAGNOSTIC LUMBAR FACET BLOCK L4-5,L5-S1) ELECTRONICALLY SIGNED BY CARIDAD HENLEY ON 07/30/2020 AT 12:37 PM EDT DISCLAIMER : THIS IS A VISIT SUMMARY EXTRACTED FROM THE [employer] CHART. IT IS NOT A COPY OF THE [employer] PROGRESS NOTE. ZINA
--- NOTE | 2020-07-31 06:29 | ECWPNPC ---
PATIENT NAME: LOGAN CRAVEN : 1960 GENDER: FEMALE VISIT DATE: 07/27/2020 DISCHARGE DATE: 07/27/20 1058 VISIT LOCKED DATE TIME: PHYSICIAN: ANDREA ELIAS PHYSICIAN PAGER NO: ACTIVE RESOURCE: ANDREA ELIAS REASON FOR APPOINTMENT 1. POST BILATERAL DIAGNOSTIC LUMBAR FACET BLOCK #1 L4-L5, L5-S1 HISTORY OF PRESENT ILLNESS GENERAL: HERE FOR POST PROCEDURE FOLLOW-UP. HAD BILATERAL L4-5, L5-S1 LUMBAR DIAGNOSTIC FACET BLOCK ON 07/12/2020. HOURLY DIARY IS REVIEWED AND SHOWS GREATER THAN 80% REDUCTION IN PAIN FOR SEVERAL DAYS. PAIN IS BEGINNING TO RETURN TO BASELINE. DISCUSSED DIAGNOSTIC TESTING #2 AND PROCEEDING WITH RADIOFREQUENCY.-. FALL RISK SCREENING: SCREENING : NO FALLS REPORTED IN THE LAST YEAR. PAIN SCREENING: PATIENT HAS A COMPLAINT OF ACUTE OR CHRONIC PAIN :YES LOCATION OF PAIN:LOW BACK INTENSITY OF PAIN (SCALE OF 1 TO 10):4 WHAT DOES YOUR PAIN FEEL LIKE:CONTINOUS DURATION:CONSTANT PAIN IS INCREASED BY:ACTIVITIES, PROLONGED STANDING, OTHERS WALKING PAIN IS DECREASED BY:OTHERS RESTING AND HEAT AND ICE NURSING NOTE: -. PAIN CENTER INTAKE QUESTIONS: DO YOU HAVE A HISTORY OF MRSA? :NO DO YOU TAKE A BLOOD THINNERS? :YES ELMIRON DO YOU HAVE ANY BLEEDING DISORDERS? :NO ANY NEW NUMBNESS OR WEAKNESS IN YOUR LEGS OR ARMS? :NO ANY PACEMAKER,DEFIBRILLATOR, OR DORSAL COLUMN STIMULATOR? :NO DO YOU HAVE ANY RASHES OR OPEN SORES? :NO ARE YOU ALLERGIC TO IV DYE? :NO ARE YOU DIABETIC? :NO ANY NEW PROBLEMS WITH YOUR MEDICATIONS? :NO HAVE YOU RECEIVED A VACCINE IN THE PAST 30 DAYS? :NO DO YOU PLAN TO RECEIVE A VACCINE IN THE NEXT 21 DAYS? :NO DO YOU NEED ANY PRESCRIPTION? :NO DO YOU TAKE ANY IMMUNOSUPPRESSIVE MEDICATIONS? :YES LEFLUNOMIDE AND ENBREL SURECLICK IS THERE A CHANCE YOU COULD BE ? :NO ARE YOU BREAST FEEDING? :NO CURRENT MEDICATIONS TAKING VITAMIN D 2000 UNIT CAPSULE 1 TABLET ORALLY ONCE A DAY TAKING CANE . MISCELLANEOUS QUAD CANE _ QD R27 TAKING CALCIUM 600 + D 600-400 MG-UNIT TABLET 1 TABLET ORALLY ONCE A DAY TAKING ELMIRON 100 MG CAPSULE 1 CAPSULE ON AN EMPTY STOMACH 1 TABLET THREE A DAY TAKING LEFLUNOMIDE 20 MG TABLET 1 TABLET ORALLY ONCE A DAY TAKING ENBREL SURECLICK 50 MG/ML SOLUTION AUTO-INJECTOR DIRECTED SUBCUTANEOUS ONCE A WEEK TAKING CYANOCOBALAMIN 500 MCG TABLET 1 TABLET ORALLY 1 EVERY 5 DAYS TAKING CARAFATE 1 GM TABLET 1 TABLET ON AN EMPTY STOMACH ORALLY AC TID TAKING ATORVASTATIN CALCIUM 20 MG TABLET 1 TABLET ORALLY ONCE A DAY TAKING FISH OIL 1000 MG CAPSULE 1 CAPSULE ORALLY ONCE A DAY TAKING ESCITALOPRAM OXALATE 10 MG TABLET 15MG 1.5 TABLET ORALLY ONCE A DAY TAKING ESOMEPRAZOLE MAGNESIUM 40 MG CAPSULE DELAYED RELEASE 1 CAPSULE ORALLY AC BID TAKING CARISOPRODOL 350 MG TABLET 1 TABLET NEEDED ORALLY TID PRN, MDD 3 TAKING HYDROCODONE-ACETAMINOPHEN 5-325 MG TABLET 1 TABLET NEEDED ORALLY TID PRN MDD = 3 MEDICATION LIST REVIEWED AND RECONCILED WITH THE PATIENT PAST MEDICAL HISTORY RA/OSTEOARTHRITIS/FIBROMYALGIA NICOTINE ADDICTION-08/2011 FEV1 2.5L (101%)/RATIO 97%-1 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 GERD/DYSPEPSIA-06/2016 NORMAL EGD/COLON/SB CAPSULE-R HYPERLIPIDEMIA 2B ENDOMETRIOSIS 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 SPENCER 2008 FOLLOWS WITH WOMAN TO WOMAN HISTORY OF TUBULAR ADENOMA-NORMAL COLONOSCOPY APRIL 2009 NORMAL COLONOSCOPY C - RANDOM BIOPSIES-[place] COLONOSCOPY 07/18/16 REINDL CERVICAL DJD STATUS POST MULTILEVEL FUSION-01/2010 MRI STABLE ACDF C BASELINE DJD ATROPHIC VAGINITIS OSTEOPENIA VITAMIN D DEFICIENCY CHRONIC SINUSITIS / NONE LATELY RECURRENT UTI / YEARS AGO CHRONIC DIARRHEA STATUS POST LAPAROSCOPIC CHOLECYSTECTOMY JULY 2009//[id number] CHRONIC DRY EYES MEMORY LOSS 2 INSOMNIA, WORK STRESS-12/2011 NORMAL MRI BRAIN S AND NORMAL WORKUP LUMBAR DJD-L2/3 BULGE C L IF HNP C L L2 COMPRESSION, L3/4 SEVERE CCS C B L3 COMPRESSION BY 03/2017 MRI LONG-TERM DISABILITY-TAKEN OOW 08/05/[address] BARAJAS, 01/2014 FILLED OUT LTD PAPERWORK FOR GUARDIAN-PATIENT DEFERRED WCE INSOMNIA, COOMORBID ANXIETY OCULAR SURFACE DISEASE ALLERGIES METHOTREXATE (ANTI-RHEUMATIC): MIGRANES - SIDE EFFECTS CYMBALTA: RACING PLUSE, SHAKES - ALLERGY WELLBUTRIN: PALPITATIONS, SEVERE - ALLERGY SULFA (FOR ALLERGY USE ONLY): NAUSEA/VOMITING - ALLERGY LYRICA: PALPITATIONS - ALLERGY CELEXA: PALPITATIONS - SIDE EFFECTS ORENCIA: ANAPHYLAXIS - ALLERGY TOPICAL ALOE VERA: SEVERE ITCHING CANNOT TOLERATE ASA BASED PRODUCTS/ NSAIDS: HX STOMACH BLEED - CONTRAINDICATION SURGICAL HISTORY LAPAROSCOPY X2 CHRISTINE BTL 1982 TVH [address] SPENCER 2008 VAGINAL CUFF BX. IRMA CHANDLER NP 03/07 CHOLECYSTECTOMY 06/09 ACDF-C4-T1 10/06 R BREAST [id number] 09/2010 ABOVE L CTR- FISH 10/27/14 L4-L5 FUSION/LAMINECTOMY 09/2013 NORMAL EGD/COLON/SB CAPSULE-R 06/2016 FUSION C5 C6 1999 HYSTERECTOMY 1988 BENIGN MOLE REMOVAL 2018 SOCIAL HISTORY GENERAL: TOBACCO USE ARE YOU A:CURRENT SMOKER ARE YOU INTERESTED IN QUITTING?THINKING ABOUT QUITTING COUNSELED THE PATIENT ON SMOKING CESSATION, EDUCATION HBTHHLCL01/30/2021 HOW MANY CIGARETTES A DAY DO YOU SMOKE?5 OR LESS HOW SOON AFTER YOU WAKE UP DO YOU SMOKE YOUR FIRST CIGARETTE?AFTER 60 MIN HOW OFTEN DO YOU SMOKE CIGARETTES?EVERY DAY PATIENT COUNSELED ON THE DANGERS OF TOBACCO USE AND URGED TO QUIT:05/26/2020 VAPORNO E-CIGARETTENO LATEX QUESTIONNAIRE LATEX ALLERGY : HAVE YOU EVER DEVELOPED ANY TYPE OF REACTION AFTER HANDLING LATEX PRODUCTS SUCH RUBBER GLOVES, CONDOMS, DIAPHRAGMS, BALLOONS, SOCKS, OR UNDERWEAR?NO LATEX ALLERGY : HAVE YOU EVER DEVELOPED ANY TYPE OF REACTION DURING OR AFTER DENTAL APPOINTMENT, VAGINAL/RECTAL EXAMINATION, SURGICAL PROCEDURE, OR ANY OTHER EXPOSURE?NO LATEX RISK : HAVE YOU EVER HAD ANY DIFFICULTY BREATHING OR HIVES AFTER EATING OR HANDLING ANY FRUITS, OR VEGETABLES; SUCH KIWI, BANANAS, STONE FRUITS, OR CHESTNUTSNO LATEX RISK : DO YOU HAVE A PREVIOUS PERSONAL HISTORY OF MORE THAN NINE SURGERIES, SPINA BIFIDA, OR REPEATED CATHERIZATIONS? YES LATEX RISK : ARE YOU FREQUENTLY EXPOSED TO LATEX PRODUCTS IN YOUR OCCUPATION?NO DATE ASKED : 07/27/2020 ALCOHOL USE: NO, ONCE EVERY 4 MONTH. ALCOHOL SCREENING DID YOU HAVE A DRINK CONTAINING ALCOHOL IN THE PAST YEAR?YES HOW OFTEN DID YOU HAVE A DRINK CONTAINING ALCOHOL IN THE PAST YEAR?MONTHLY OR LESS (1 POINT) POINTS1 INTERPRETATIONNEGATIVE RECREATIONAL DRUG USE DRUG USE?NO CAFFEINE CAFFEINE USE?YES 2-3 DAILY SEXUAL HX HAD SEX IN THE LAST 12 MONTHS (VAGINAL, ORAL, OR ANAL)?NO HAVE YOU EVER HAD AN STD?NO HIV / HEP-C SCREENING HIV TEST OFFERED TO PATIENT:YES DATE OFFERED:06/28/2017 TEST ACCEPTED:NO HEP-C TEST OFFERED TO PATIENT:YES DATE OFFERED:06/28/2017 REASON:PATIENT DECLINED TEST ACCEPTED:NO REASON:PATIENT DECLINED DRUZE [id number] NONE NO HOLINESS BELIEFS THAT WOULD IMPACT HEALTH CARE. LANGUAGE LANGUAGES SPOKEN:UPPER SORBIAN EDUCATION LEVEL OF EDUCATION:HIGH SCHOOL GED LEARNING BARRIERS / SPECIAL NEEDS CHANGE FROM LAST VISIT?NO BARRIERS TO LEARNING?NO HEARING IMPAIRED?NO TINITUS VISION IMPAIRED?YES :CORRECTIVE LENSES COGNITIVELY IMPAIRED?NO READINESS TO LEARN?YES LEARNING PREFERENCES?NO LEARNING CAPABILITIES PRESENT?YES EMOTIONAL BARRIERS?NO SPECIAL DEVICES?YES :CANE NEEDED INDEPENDENT DRIVER NEEDED?NO DOMESTIC VIOLENCE DO YOU FEEL SAFE IN YOUR ENVIRONMENT?YES OCCUPATION: DISABLED. DIET: AVOIDS GREASY, FRIED FOODS, DAIRY.TRIES TO EAT SMALLER PORTIONS. EXERCISE: LOWER BACK EXERCISES, WALKS TOLERATED. MARITAL STATUS: .. OTHERS AT HOME: DAUGHTER. - PFS REFERRAL NEEDED?NO CLERGY REFERRAL NEEDED?NO PUBLIC HEALTH REFERRAL NEEDED?NO HAS THE PATIENT BEEN EDUCATED REGARDING HIS/HER PLAN OF CARE?YES HAS THE PATIENT BEEN EDUCATED REGARDING PAIN, THE RISK FOR PAIN, THE IMPORTANCE OF EFFECTIVE PAIN MANAGEMENT, AND THE PAIN ASSESSMENT PROCESS?YES ADVANCE DIRECTIVE ADVANCE DIRECTIVE DISCUSSED WITH PATIENT:YES PT STATES SHE HAS A HEALTH CARE PROXY-RAH ROSARIO [phone] HOSPITALIZATION/MAJOR DIAGNOSTIC PROCEDURE SURGICAL RELATED REVIEW OF SYSTEMS CONSTITUTIONAL: ANY RECENT FEVER NO . CHILLS NO . WEIGHT CHANGE OF UNKNOWN REASONS NO . GASTROENTEROLOGY: NEW UNEXPLAINABLE CHANGES IN BOWEL CONTROL NO . CONSTIPATION NO . GENITOURINARY: ANY NEW CHANGE IN BLADDER CONTROL? NO . NEUROLOGY: NEW ONSET DIZZINESS OR NEUROLOGICAL CHANGES NOT MENTIONED NO . NEW NUMBNESS OR PAIN PATTERNS NOT MENTIONED AND PERTINENT TO TODAY'S VISIT NO . CARDIOLOGY: NEW CHEST PRESSURE NO . PATIENT DENIES NO . RESPIRATORY: UNEXPLAINABLE COUGH NO . NEW SHORTNESS OF BREATH NO . VITAL SIGNS WT 125 LBS, HT 64 IN, BMI 21.45 INDEX, BP 126/55 MM HG, HR 85 /MIN, RR 18 /MIN, TEMP 98.3 F, OXYGEN SAT % 96%, SAFE IN ENV? (Y/N) YEST.CARYN CORLEY. EXAMINATION GENERAL EXAMINATION: GENERAL AWAKE,ALERT ,PLEASANT . PSYCH AFFECT NORMAL . LUNGS: LUNG LINDSEY ARE CLEAR TO AUSCULTATION BILATERALLY. GOOD MOVEMENT OF AIR . HEART: S1, S2 IN A REGULAR RATE AND RHYTHM. NO SIGNIFICANT MURMURS, RUBS OR GALLOPS NOTED . MUSCULOSKELETAL: MUSCLE STRENGTH TESTING 5/5 BILATERAL LOWER EXTREMITIES. LUMBAR: PALPATION: + FOR PAIN OVER L/S SPINE. + FOR PAIN OVER L/S PARASPINALS WELL-HEALED SURGICAL SCAR L/S AXIS. DIAGNOSTIC TESTS REVIEWEDMRI L/S SPINE . 06/2019. ASSESSMENTS SPONDYLOSIS WITHOUT MYELOPATHY OR RADICULOPATHY, LUMBAR REGION - M47.816 (PRIMARY) OTHER CHRONIC PAIN - G89.29 POST LAMINECTOMY SYNDROME - M96.1 TREATMENT SPONDYLOSIS WITHOUT MYELOPATHY OR RADICULOPATHY, LUMBAR REGION NOTES: BILATERAL DIAGNOSTIC LUMBAR FACET BLOCK L4-5,L5-S1 PRINTED AND REVIEWED PRE PROCEDURE WITH PATIENT EZEKIEL CORLEY. OTHER CHRONIC PAIN PAIN PROCEDURE LOGDATE OF PROCEDURE1PROCEDURE:BILATERAL DIAGNOSTIC LUMBAR FACET BLOCK #1 L4-L5,L5-V0DXRBKA OF PRE SEDATE0/0RESULT:GREATER THAN 80% REDUCTION IN PAIN FOR SEVERAL HOURS POSTPROCEDURESLUIS SANTOS 07/28/2020 5:14:14 PM > ANDREA, CAN YOU PLEASE PUT THE PROCEDURE RESULTS IN THIS PROCEDURE LOG? THANKS. PROCEDURE CODES FA211 ESTABILISHED PATIENT [facility] FACILITY CHARGE DISPOSITION & COMMUNICATION FOLLOW UP POST PROCEDURE (REASON: BILATERAL DIAGNOSTIC LUMBAR FACET BLOCK L4-5,L5-S1) ELECTRONICALLY SIGNED BY CARIDAD HENLEY ON 07/30/2020 AT 12:37 PM EDT DISCLAIMER : THIS IS A VISIT SUMMARY EXTRACTED FROM THE [employer] CHART. IT IS NOT A COPY OF THE [employer] PROGRESS NOTE. ZINA
--- NOTE | 2020-07-31 06:31 | ECWPNPC ---
PATIENT NAME: LOGAN CRAVEN : 1960 GENDER: FEMALE VISIT DATE: 07/27/2020 DISCHARGE DATE: 07/27/20 1058 VISIT LOCKED DATE TIME: PHYSICIAN: ANDREA ELIAS PHYSICIAN PAGER NO: ACTIVE RESOURCE: ANDREA ELIAS REASON FOR APPOINTMENT 1. POST BILATERAL DIAGNOSTIC LUMBAR FACET BLOCK #1 L4-L5, L5-S1 HISTORY OF PRESENT ILLNESS GENERAL: HERE FOR POST PROCEDURE FOLLOW-UP. HAD BILATERAL L4-5, L5-S1 LUMBAR DIAGNOSTIC FACET BLOCK ON 07/12/2020. HOURLY DIARY IS REVIEWED AND SHOWS GREATER THAN 80% REDUCTION IN PAIN FOR SEVERAL DAYS. PAIN IS BEGINNING TO RETURN TO BASELINE. DISCUSSED DIAGNOSTIC TESTING #2 AND PROCEEDING WITH RADIOFREQUENCY.-. FALL RISK SCREENING: SCREENING : NO FALLS REPORTED IN THE LAST YEAR. PAIN SCREENING: PATIENT HAS A COMPLAINT OF ACUTE OR CHRONIC PAIN :YES LOCATION OF PAIN:LOW BACK INTENSITY OF PAIN (SCALE OF 1 TO 10):4 WHAT DOES YOUR PAIN FEEL LIKE:CONTINOUS DURATION:CONSTANT PAIN IS INCREASED BY:ACTIVITIES, PROLONGED STANDING, OTHERS WALKING PAIN IS DECREASED BY:OTHERS RESTING AND HEAT AND ICE NURSING NOTE: -. PAIN CENTER INTAKE QUESTIONS: DO YOU HAVE A HISTORY OF MRSA? :NO DO YOU TAKE A BLOOD THINNERS? :YES ELMIRON DO YOU HAVE ANY BLEEDING DISORDERS? :NO ANY NEW NUMBNESS OR WEAKNESS IN YOUR LEGS OR ARMS? :NO ANY PACEMAKER,DEFIBRILLATOR, OR DORSAL COLUMN STIMULATOR? :NO DO YOU HAVE ANY RASHES OR OPEN SORES? :NO ARE YOU ALLERGIC TO IV DYE? :NO ARE YOU DIABETIC? :NO ANY NEW PROBLEMS WITH YOUR MEDICATIONS? :NO HAVE YOU RECEIVED A VACCINE IN THE PAST 30 DAYS? :NO DO YOU PLAN TO RECEIVE A VACCINE IN THE NEXT 21 DAYS? :NO DO YOU NEED ANY PRESCRIPTION? :NO DO YOU TAKE ANY IMMUNOSUPPRESSIVE MEDICATIONS? :YES LEFLUNOMIDE AND ENBREL SURECLICK IS THERE A CHANCE YOU COULD BE ? :NO ARE YOU BREAST FEEDING? :NO CURRENT MEDICATIONS TAKING VITAMIN D 2000 UNIT CAPSULE 1 TABLET ORALLY ONCE A DAY TAKING CANE . MISCELLANEOUS QUAD CANE _ QD R27 TAKING CALCIUM 600 + D 600-400 MG-UNIT TABLET 1 TABLET ORALLY ONCE A DAY TAKING ELMIRON 100 MG CAPSULE 1 CAPSULE ON AN EMPTY STOMACH 1 TABLET THREE A DAY TAKING LEFLUNOMIDE 20 MG TABLET 1 TABLET ORALLY ONCE A DAY TAKING ENBREL SURECLICK 50 MG/ML SOLUTION AUTO-INJECTOR DIRECTED SUBCUTANEOUS ONCE A WEEK TAKING CYANOCOBALAMIN 500 MCG TABLET 1 TABLET ORALLY 1 EVERY 5 DAYS TAKING CARAFATE 1 GM TABLET 1 TABLET ON AN EMPTY STOMACH ORALLY AC TID TAKING ATORVASTATIN CALCIUM 20 MG TABLET 1 TABLET ORALLY ONCE A DAY TAKING FISH OIL 1000 MG CAPSULE 1 CAPSULE ORALLY ONCE A DAY TAKING ESCITALOPRAM OXALATE 10 MG TABLET 15MG 1.5 TABLET ORALLY ONCE A DAY TAKING ESOMEPRAZOLE MAGNESIUM 40 MG CAPSULE DELAYED RELEASE 1 CAPSULE ORALLY AC BID TAKING CARISOPRODOL 350 MG TABLET 1 TABLET NEEDED ORALLY TID PRN, MDD 3 TAKING HYDROCODONE-ACETAMINOPHEN 5-325 MG TABLET 1 TABLET NEEDED ORALLY TID PRN MDD = 3 MEDICATION LIST REVIEWED AND RECONCILED WITH THE PATIENT PAST MEDICAL HISTORY RA/OSTEOARTHRITIS/FIBROMYALGIA NICOTINE ADDICTION-08/2011 FEV1 2.5L (101%)/RATIO 97%-1 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 GERD/DYSPEPSIA-06/2016 NORMAL EGD/COLON/SB CAPSULE-R HYPERLIPIDEMIA 2B ENDOMETRIOSIS 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 SPENCER 2008 FOLLOWS WITH WOMAN TO WOMAN HISTORY OF TUBULAR ADENOMA-NORMAL COLONOSCOPY APRIL 2009 NORMAL COLONOSCOPY C - RANDOM BIOPSIES-[place] COLONOSCOPY 07/18/16 REINDL CERVICAL DJD STATUS POST MULTILEVEL FUSION-01/2010 MRI STABLE ACDF C BASELINE DJD ATROPHIC VAGINITIS OSTEOPENIA VITAMIN D DEFICIENCY CHRONIC SINUSITIS / NONE LATELY RECURRENT UTI / YEARS AGO CHRONIC DIARRHEA STATUS POST LAPAROSCOPIC CHOLECYSTECTOMY JULY 2009//[id number] CHRONIC DRY EYES MEMORY LOSS 2 INSOMNIA, WORK STRESS-12/2011 NORMAL MRI BRAIN S AND NORMAL WORKUP LUMBAR DJD-L2/3 BULGE C L IF HNP C L L2 COMPRESSION, L3/4 SEVERE CCS C B L3 COMPRESSION BY 03/2017 MRI LONG-TERM DISABILITY-TAKEN OOW 08/05/[address] BARAJAS, 01/2014 FILLED OUT LTD PAPERWORK FOR GUARDIAN-PATIENT DEFERRED WCE INSOMNIA, COOMORBID ANXIETY OCULAR SURFACE DISEASE ALLERGIES METHOTREXATE (ANTI-RHEUMATIC): MIGRANES - SIDE EFFECTS CYMBALTA: RACING PLUSE, SHAKES - ALLERGY WELLBUTRIN: PALPITATIONS, SEVERE - ALLERGY SULFA (FOR ALLERGY USE ONLY): NAUSEA/VOMITING - ALLERGY LYRICA: PALPITATIONS - ALLERGY CELEXA: PALPITATIONS - SIDE EFFECTS ORENCIA: ANAPHYLAXIS - ALLERGY TOPICAL ALOE VERA: SEVERE ITCHING CANNOT TOLERATE ASA BASED PRODUCTS/ NSAIDS: HX STOMACH BLEED - CONTRAINDICATION SURGICAL HISTORY LAPAROSCOPY X2 CHRISTINE BTL 1982 TVH [address] SPENCER 2008 VAGINAL CUFF BX. IRMA CHANDLER NP 03/07 CHOLECYSTECTOMY 06/09 ACDF-C4-T1 10/06 R BREAST [id number]-[id number] 09/2010 ABOVE L CTR- FISH 10/27/14 L4-L5 FUSION/LAMINECTOMY 09/2013 NORMAL EGD/COLON/SB CAPSULE-R 06/2016 FUSION C5 C6 1999 HYSTERECTOMY 1988 BENIGN MOLE REMOVAL 2018 SOCIAL HISTORY GENERAL: TOBACCO USE ARE YOU A:CURRENT SMOKER ARE YOU INTERESTED IN QUITTING?THINKING ABOUT QUITTING COUNSELED THE PATIENT ON SMOKING CESSATION, EDUCATION LDLGNIMQ69/30/2021 HOW MANY CIGARETTES A DAY DO YOU SMOKE?5 OR LESS HOW SOON AFTER YOU WAKE UP DO YOU SMOKE YOUR FIRST CIGARETTE?AFTER 60 MIN HOW OFTEN DO YOU SMOKE CIGARETTES?EVERY DAY PATIENT COUNSELED ON THE DANGERS OF TOBACCO USE AND URGED TO QUIT:05/26/2020 VAPORNO E-CIGARETTENO LATEX QUESTIONNAIRE LATEX ALLERGY : HAVE YOU EVER DEVELOPED ANY TYPE OF REACTION AFTER HANDLING LATEX PRODUCTS SUCH RUBBER GLOVES, CONDOMS, DIAPHRAGMS, BALLOONS, SOCKS, OR UNDERWEAR?NO LATEX ALLERGY : HAVE YOU EVER DEVELOPED ANY TYPE OF REACTION DURING OR AFTER DENTAL APPOINTMENT, VAGINAL/RECTAL EXAMINATION, SURGICAL PROCEDURE, OR ANY OTHER EXPOSURE?NO LATEX RISK : HAVE YOU EVER HAD ANY DIFFICULTY BREATHING OR HIVES AFTER EATING OR HANDLING ANY FRUITS, OR VEGETABLES; SUCH KIWI, BANANAS, STONE FRUITS, OR CHESTNUTSNO LATEX RISK : DO YOU HAVE A PREVIOUS PERSONAL HISTORY OF MORE THAN NINE SURGERIES, SPINA BIFIDA, OR REPEATED CATHERIZATIONS? YES LATEX RISK : ARE YOU FREQUENTLY EXPOSED TO LATEX PRODUCTS IN YOUR OCCUPATION?NO DATE ASKED : 07/27/2020 ALCOHOL USE: NO, ONCE EVERY 4 MONTH. ALCOHOL SCREENING DID YOU HAVE A DRINK CONTAINING ALCOHOL IN THE PAST YEAR?YES HOW OFTEN DID YOU HAVE A DRINK CONTAINING ALCOHOL IN THE PAST YEAR?MONTHLY OR LESS (1 POINT) POINTS1 INTERPRETATIONNEGATIVE RECREATIONAL DRUG USE DRUG USE?NO CAFFEINE CAFFEINE USE?YES 2-3 DAILY SEXUAL HX HAD SEX IN THE LAST 12 MONTHS (VAGINAL, ORAL, OR ANAL)?NO HAVE YOU EVER HAD AN STD?NO HIV / HEP-C SCREENING HIV TEST OFFERED TO PATIENT:YES DATE OFFERED:06/28/2017 TEST ACCEPTED:NO HEP-C TEST OFFERED TO PATIENT:YES DATE OFFERED:06/28/2017 REASON:PATIENT DECLINED TEST ACCEPTED:NO REASON:PATIENT DECLINED MU-ISM [id number] NONE NO LUTHERAN BELIEFS THAT WOULD IMPACT HEALTH CARE. LANGUAGE LANGUAGES SPOKEN:DIVEHI EDUCATION LEVEL OF EDUCATION:HIGH SCHOOL GED LEARNING BARRIERS / SPECIAL NEEDS CHANGE FROM LAST VISIT?NO BARRIERS TO LEARNING?NO HEARING IMPAIRED?NO TINITUS VISION IMPAIRED?YES :CORRECTIVE LENSES COGNITIVELY IMPAIRED?NO READINESS TO LEARN?YES LEARNING PREFERENCES?NO LEARNING CAPABILITIES PRESENT?YES EMOTIONAL BARRIERS?NO SPECIAL DEVICES?YES :CANE NEEDED HOME AND SCHOOL VISITOR NEEDED?NO DOMESTIC VIOLENCE DO YOU FEEL SAFE IN YOUR ENVIRONMENT?YES OCCUPATION: DISABLED. DIET: AVOIDS GREASY, FRIED FOODS, DAIRY.TRIES TO EAT SMALLER PORTIONS. EXERCISE: LOWER BACK EXERCISES, WALKS TOLERATED. MARITAL STATUS: .. OTHERS AT HOME: DAUGHTER. - PFS REFERRAL NEEDED?NO CLERGY REFERRAL NEEDED?NO PUBLIC HEALTH REFERRAL NEEDED?NO HAS THE PATIENT BEEN EDUCATED REGARDING HIS/HER PLAN OF CARE?YES HAS THE PATIENT BEEN EDUCATED REGARDING PAIN, THE RISK FOR PAIN, THE IMPORTANCE OF EFFECTIVE PAIN MANAGEMENT, AND THE PAIN ASSESSMENT PROCESS?YES ADVANCE DIRECTIVE ADVANCE DIRECTIVE DISCUSSED WITH PATIENT:YES PT STATES SHE HAS A HEALTH CARE PROXY-RAH ROSARIO [phone] HOSPITALIZATION/MAJOR DIAGNOSTIC PROCEDURE SURGICAL RELATED REVIEW OF SYSTEMS CONSTITUTIONAL: ANY RECENT FEVER NO . CHILLS NO . WEIGHT CHANGE OF UNKNOWN REASONS NO . GASTROENTEROLOGY: NEW UNEXPLAINABLE CHANGES IN BOWEL CONTROL NO . CONSTIPATION NO . GENITOURINARY: ANY NEW CHANGE IN BLADDER CONTROL? NO . NEUROLOGY: NEW ONSET DIZZINESS OR NEUROLOGICAL CHANGES NOT MENTIONED NO . NEW NUMBNESS OR PAIN PATTERNS NOT MENTIONED AND PERTINENT TO TODAY'S VISIT NO . CARDIOLOGY: NEW CHEST PRESSURE NO . PATIENT DENIES NO . RESPIRATORY: UNEXPLAINABLE COUGH NO . NEW SHORTNESS OF BREATH NO . VITAL SIGNS WT 125 LBS, HT 64 IN, BMI 21.45 INDEX, BP 126/55 MM HG, HR 85 /MIN, RR 18 /MIN, TEMP 98.3 F, OXYGEN SAT % 96%, SAFE IN ENV? (Y/N) YEST.CARYN CORLEY. EXAMINATION GENERAL EXAMINATION: GENERAL AWAKE,ALERT ,PLEASANT . PSYCH AFFECT NORMAL . LUNGS: LUNG LINDSEY ARE CLEAR TO AUSCULTATION BILATERALLY. GOOD MOVEMENT OF AIR . HEART: S1, S2 IN A REGULAR RATE AND RHYTHM. NO SIGNIFICANT MURMURS, RUBS OR GALLOPS NOTED . MUSCULOSKELETAL: MUSCLE STRENGTH TESTING 5/5 BILATERAL LOWER EXTREMITIES. LUMBAR: PALPATION: + FOR PAIN OVER L/S SPINE. + FOR PAIN OVER L/S PARASPINALS WELL-HEALED SURGICAL SCAR L/S AXIS. DIAGNOSTIC TESTS REVIEWEDMRI L/S SPINE . 06/2019. ASSESSMENTS SPONDYLOSIS WITHOUT MYELOPATHY OR RADICULOPATHY, LUMBAR REGION - M47.816 (PRIMARY) OTHER CHRONIC PAIN - G89.29 POST LAMINECTOMY SYNDROME - M96.1 TREATMENT SPONDYLOSIS WITHOUT MYELOPATHY OR RADICULOPATHY, LUMBAR REGION NOTES: BILATERAL DIAGNOSTIC LUMBAR FACET BLOCK L4-5,L5-S1 PRINTED AND REVIEWED PRE PROCEDURE WITH PATIENT EZEKIEL CORLEY. OTHER CHRONIC PAIN PAIN PROCEDURE LOGDATE OF PROCEDURE1PROCEDURE:BILATERAL DIAGNOSTIC LUMBAR FACET BLOCK #1 L4-L5,L5-X6HICVGT OF PRE SEDATE0/0RESULT:GREATER THAN 80% REDUCTION IN PAIN FOR SEVERAL HOURS POSTPROCEDURESLUIS SANTOS 07/28/2020 5:14:14 PM > ANDREA, CAN YOU PLEASE PUT THE PROCEDURE RESULTS IN THIS PROCEDURE LOG? THANKS. PROCEDURE CODES FA211 ESTABILISHED PATIENT [facility] FACILITY CHARGE DISPOSITION & COMMUNICATION FOLLOW UP POST PROCEDURE (REASON: BILATERAL DIAGNOSTIC LUMBAR FACET BLOCK L4-5,L5-S1) ELECTRONICALLY SIGNED BY CARIDAD HENLEY ON 07/30/2020 AT 12:37 PM EDT DISCLAIMER : THIS IS A VISIT SUMMARY EXTRACTED FROM THE [employer] CHART. IT IS NOT A COPY OF THE [email or web address] PROGRESS NOTE. ZINA
--- NOTE | 2020-07-31 06:32 | ECWPNPC ---
PATIENT NAME: LOGAN CRAVEN : 1960 GENDER: FEMALE VISIT DATE: 07/27/2020 DISCHARGE DATE: 07/27/20 1058 VISIT LOCKED DATE TIME: PHYSICIAN: ANDREA ELIAS PHYSICIAN PAGER NO: ACTIVE RESOURCE: ANDREA ELIAS REASON FOR APPOINTMENT 1. POST BILATERAL DIAGNOSTIC LUMBAR FACET BLOCK #1 L4-L5, L5-S1 HISTORY OF PRESENT ILLNESS GENERAL: HERE FOR POST PROCEDURE FOLLOW-UP. HAD BILATERAL L4-5, L5-S1 LUMBAR DIAGNOSTIC FACET BLOCK ON 07/12/2020. HOURLY DIARY IS REVIEWED AND SHOWS GREATER THAN 80% REDUCTION IN PAIN FOR SEVERAL DAYS. PAIN IS BEGINNING TO RETURN TO BASELINE. DISCUSSED DIAGNOSTIC TESTING #2 AND PROCEEDING WITH RADIOFREQUENCY.-. FALL RISK SCREENING: SCREENING : NO FALLS REPORTED IN THE LAST YEAR. PAIN SCREENING: PATIENT HAS A COMPLAINT OF ACUTE OR CHRONIC PAIN :YES LOCATION OF PAIN:LOW BACK INTENSITY OF PAIN (SCALE OF 1 TO 10):4 WHAT DOES YOUR PAIN FEEL LIKE:CONTINOUS DURATION:CONSTANT PAIN IS INCREASED BY:ACTIVITIES, PROLONGED STANDING, OTHERS WALKING PAIN IS DECREASED BY:OTHERS RESTING AND HEAT AND ICE NURSING NOTE: -. PAIN CENTER INTAKE QUESTIONS: DO YOU HAVE A HISTORY OF MRSA? :NO DO YOU TAKE A BLOOD THINNERS? :YES ELMIRON DO YOU HAVE ANY BLEEDING DISORDERS? :NO ANY NEW NUMBNESS OR WEAKNESS IN YOUR LEGS OR ARMS? :NO ANY PACEMAKER,DEFIBRILLATOR, OR DORSAL COLUMN STIMULATOR? :NO DO YOU HAVE ANY RASHES OR OPEN SORES? :NO ARE YOU ALLERGIC TO IV DYE? :NO ARE YOU DIABETIC? :NO ANY NEW PROBLEMS WITH YOUR MEDICATIONS? :NO HAVE YOU RECEIVED A VACCINE IN THE PAST 30 DAYS? :NO DO YOU PLAN TO RECEIVE A VACCINE IN THE NEXT 21 DAYS? :NO DO YOU NEED ANY PRESCRIPTION? :NO DO YOU TAKE ANY IMMUNOSUPPRESSIVE MEDICATIONS? :YES LEFLUNOMIDE AND ENBREL SURECLICK IS THERE A CHANCE YOU COULD BE ? :NO ARE YOU BREAST FEEDING? :NO CURRENT MEDICATIONS TAKING VITAMIN D 2000 UNIT CAPSULE 1 TABLET ORALLY ONCE A DAY TAKING CANE . MISCELLANEOUS QUAD CANE _ QD R27 TAKING CALCIUM 600 + D 600-400 MG-UNIT TABLET 1 TABLET ORALLY ONCE A DAY TAKING ELMIRON 100 MG CAPSULE 1 CAPSULE ON AN EMPTY STOMACH 1 TABLET THREE A DAY TAKING LEFLUNOMIDE 20 MG TABLET 1 TABLET ORALLY ONCE A DAY TAKING ENBREL SURECLICK 50 MG/ML SOLUTION AUTO-INJECTOR DIRECTED SUBCUTANEOUS ONCE A WEEK TAKING CYANOCOBALAMIN 500 MCG TABLET 1 TABLET ORALLY 1 EVERY 5 DAYS TAKING CARAFATE 1 GM TABLET 1 TABLET ON AN EMPTY STOMACH ORALLY AC TID TAKING ATORVASTATIN CALCIUM 20 MG TABLET 1 TABLET ORALLY ONCE A DAY TAKING FISH OIL 1000 MG CAPSULE 1 CAPSULE ORALLY ONCE A DAY TAKING ESCITALOPRAM OXALATE 10 MG TABLET 15MG 1.5 TABLET ORALLY ONCE A DAY TAKING ESOMEPRAZOLE MAGNESIUM 40 MG CAPSULE DELAYED RELEASE 1 CAPSULE ORALLY AC BID TAKING CARISOPRODOL 350 MG TABLET 1 TABLET NEEDED ORALLY TID PRN, MDD 3 TAKING HYDROCODONE-ACETAMINOPHEN 5-325 MG TABLET 1 TABLET NEEDED ORALLY TID PRN MDD = 3 MEDICATION LIST REVIEWED AND RECONCILED WITH THE PATIENT PAST MEDICAL HISTORY RA/OSTEOARTHRITIS/FIBROMYALGIA NICOTINE ADDICTION-08/2011 FEV1 2.5L (101%)/RATIO 97%-1 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 GERD/DYSPEPSIA-06/2016 NORMAL EGD/COLON/SB CAPSULE-R HYPERLIPIDEMIA 2B ENDOMETRIOSIS 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 SPENCER 2008 FOLLOWS WITH WOMAN TO WOMAN HISTORY OF TUBULAR ADENOMA-NORMAL COLONOSCOPY APRIL 2009 NORMAL COLONOSCOPY C - RANDOM BIOPSIES-[place] COLONOSCOPY 07/18/16 REINDL CERVICAL DJD STATUS POST MULTILEVEL FUSION-01/2010 MRI STABLE ACDF C BASELINE DJD ATROPHIC VAGINITIS OSTEOPENIA VITAMIN D DEFICIENCY CHRONIC SINUSITIS / NONE LATELY RECURRENT UTI / YEARS AGO CHRONIC DIARRHEA STATUS POST LAPAROSCOPIC CHOLECYSTECTOMY JULY 2009//[id number] CHRONIC DRY EYES MEMORY LOSS 2 INSOMNIA, WORK STRESS-12/2011 NORMAL MRI BRAIN S AND NORMAL WORKUP LUMBAR DJD-L2/3 BULGE C L IF HNP C L L2 COMPRESSION, L3/4 SEVERE CCS C B L3 COMPRESSION BY 03/2017 MRI LONG-TERM DISABILITY-TAKEN OOW 08/05/[address] BARAJAS, 01/2014 FILLED OUT LTD PAPERWORK FOR GUARDIAN-PATIENT DEFERRED WCE INSOMNIA, COOMORBID ANXIETY OCULAR SURFACE DISEASE ALLERGIES METHOTREXATE (ANTI-RHEUMATIC): MIGRANES - SIDE EFFECTS CYMBALTA: RACING PLUSE, SHAKES - ALLERGY WELLBUTRIN: PALPITATIONS, SEVERE - ALLERGY SULFA (FOR ALLERGY USE ONLY): NAUSEA/VOMITING - ALLERGY LYRICA: PALPITATIONS - ALLERGY CELEXA: PALPITATIONS - SIDE EFFECTS ORENCIA: ANAPHYLAXIS - ALLERGY TOPICAL ALOE VERA: SEVERE ITCHING CANNOT TOLERATE ASA BASED PRODUCTS/ NSAIDS: HX STOMACH BLEED - CONTRAINDICATION SURGICAL HISTORY LAPAROSCOPY X2 CHRISTINE BTL 1982 TVH [address] SPENCER 2008 VAGINAL CUFF BX. IRMA CHANDLER NP 03/07 CHOLECYSTECTOMY 06/09 ACDF-C4-T1 10/06 R BREAST [id number] 09/2010 ABOVE L CTR- FISH 10/27/14 L4-L5 FUSION/LAMINECTOMY 09/2013 NORMAL EGD/COLON/SB CAPSULE-R 06/2016 FUSION C5 C6 1999 HYSTERECTOMY 1988 BENIGN MOLE REMOVAL 2018 SOCIAL HISTORY GENERAL: TOBACCO USE ARE YOU A:CURRENT SMOKER ARE YOU INTERESTED IN QUITTING?THINKING ABOUT QUITTING COUNSELED THE PATIENT ON SMOKING CESSATION, EDUCATION [id number]/30/2021 HOW MANY CIGARETTES A DAY DO YOU SMOKE?5 OR LESS HOW SOON AFTER YOU WAKE UP DO YOU SMOKE YOUR FIRST CIGARETTE?AFTER 60 MIN HOW OFTEN DO YOU SMOKE CIGARETTES?EVERY DAY PATIENT COUNSELED ON THE DANGERS OF TOBACCO USE AND URGED TO QUIT:05/26/2020 VAPORNO E-CIGARETTENO LATEX QUESTIONNAIRE LATEX ALLERGY : HAVE YOU EVER DEVELOPED ANY TYPE OF REACTION AFTER HANDLING LATEX PRODUCTS SUCH RUBBER GLOVES, CONDOMS, DIAPHRAGMS, BALLOONS, SOCKS, OR UNDERWEAR?NO LATEX ALLERGY : HAVE YOU EVER DEVELOPED ANY TYPE OF REACTION DURING OR AFTER DENTAL APPOINTMENT, VAGINAL/RECTAL EXAMINATION, SURGICAL PROCEDURE, OR ANY OTHER EXPOSURE?NO LATEX RISK : HAVE YOU EVER HAD ANY DIFFICULTY BREATHING OR HIVES AFTER EATING OR HANDLING ANY FRUITS, OR VEGETABLES; SUCH KIWI, BANANAS, STONE FRUITS, OR CHESTNUTSNO LATEX RISK : DO YOU HAVE A PREVIOUS PERSONAL HISTORY OF MORE THAN NINE SURGERIES, SPINA BIFIDA, OR REPEATED CATHERIZATIONS? YES LATEX RISK : ARE YOU FREQUENTLY EXPOSED TO LATEX PRODUCTS IN YOUR OCCUPATION?NO DATE ASKED : 07/27/2020 ALCOHOL USE: NO, ONCE EVERY 4 MONTH. ALCOHOL SCREENING DID YOU HAVE A DRINK CONTAINING ALCOHOL IN THE PAST YEAR?YES HOW OFTEN DID YOU HAVE A DRINK CONTAINING ALCOHOL IN THE PAST YEAR?MONTHLY OR LESS (1 POINT) POINTS1 INTERPRETATIONNEGATIVE RECREATIONAL DRUG USE DRUG USE?NO CAFFEINE CAFFEINE USE?YES 2-3 DAILY SEXUAL HX HAD SEX IN THE LAST 12 MONTHS (VAGINAL, ORAL, OR ANAL)?NO HAVE YOU EVER HAD AN STD?NO HIV / HEP-C SCREENING HIV TEST OFFERED TO PATIENT:YES DATE OFFERED:06/28/2017 TEST ACCEPTED:NO HEP-C TEST OFFERED TO PATIENT:YES DATE OFFERED:06/28/2017 REASON:PATIENT DECLINED TEST ACCEPTED:NO REASON:PATIENT DECLINED RELIGIOUS [id number] NONE NO PRESYBETERIAN BELIEFS THAT WOULD IMPACT HEALTH CARE. LANGUAGE LANGUAGES SPOKEN:GERMAN EDUCATION LEVEL OF EDUCATION:HIGH SCHOOL GED LEARNING BARRIERS / SPECIAL NEEDS CHANGE FROM LAST VISIT?NO BARRIERS TO LEARNING?NO HEARING IMPAIRED?NO TINITUS VISION IMPAIRED?YES :CORRECTIVE LENSES COGNITIVELY IMPAIRED?NO READINESS TO LEARN?YES LEARNING PREFERENCES?NO LEARNING CAPABILITIES PRESENT?YES EMOTIONAL BARRIERS?NO SPECIAL DEVICES?YES :CANE NEEDED UPSETTER NEEDED?NO DOMESTIC VIOLENCE DO YOU FEEL SAFE IN YOUR ENVIRONMENT?YES OCCUPATION: DISABLED. DIET: AVOIDS GREASY, FRIED FOODS, DAIRY.TRIES TO EAT SMALLER PORTIONS. EXERCISE: LOWER BACK EXERCISES, WALKS TOLERATED. MARITAL STATUS: .. OTHERS AT HOME: DAUGHTER. - PFS REFERRAL NEEDED?NO CLERGY REFERRAL NEEDED?NO PUBLIC HEALTH REFERRAL NEEDED?NO HAS THE PATIENT BEEN EDUCATED REGARDING HIS/HER PLAN OF CARE?YES HAS THE PATIENT BEEN EDUCATED REGARDING PAIN, THE RISK FOR PAIN, THE IMPORTANCE OF EFFECTIVE PAIN MANAGEMENT, AND THE PAIN ASSESSMENT PROCESS?YES ADVANCE DIRECTIVE ADVANCE DIRECTIVE DISCUSSED WITH PATIENT:YES PT STATES SHE HAS A HEALTH CARE PROXY-RAH ROSARIO [phone] HOSPITALIZATION/MAJOR DIAGNOSTIC PROCEDURE SURGICAL RELATED REVIEW OF SYSTEMS CONSTITUTIONAL: ANY RECENT FEVER NO . CHILLS NO . WEIGHT CHANGE OF UNKNOWN REASONS NO . GASTROENTEROLOGY: NEW UNEXPLAINABLE CHANGES IN BOWEL CONTROL NO . CONSTIPATION NO . GENITOURINARY: ANY NEW CHANGE IN BLADDER CONTROL? NO . NEUROLOGY: NEW ONSET DIZZINESS OR NEUROLOGICAL CHANGES NOT MENTIONED NO . NEW NUMBNESS OR PAIN PATTERNS NOT MENTIONED AND PERTINENT TO TODAY'S VISIT NO . CARDIOLOGY: NEW CHEST PRESSURE NO . PATIENT DENIES NO . RESPIRATORY: UNEXPLAINABLE COUGH NO . NEW SHORTNESS OF BREATH NO . VITAL SIGNS WT 125 LBS, HT 64 IN, BMI 21.45 INDEX, BP 126/55 MM HG, HR 85 /MIN, RR 18 /MIN, TEMP 98.3 F, OXYGEN SAT % 96%, SAFE IN ENV? (Y/N) YEST.CARYN CORLEY. EXAMINATION GENERAL EXAMINATION: GENERAL AWAKE,ALERT ,PLEASANT . PSYCH AFFECT NORMAL . LUNGS: LUNG LINDSEY ARE CLEAR TO AUSCULTATION BILATERALLY. GOOD MOVEMENT OF AIR . HEART: S1, S2 IN A REGULAR RATE AND RHYTHM. NO SIGNIFICANT MURMURS, RUBS OR GALLOPS NOTED . MUSCULOSKELETAL: MUSCLE STRENGTH TESTING 5/5 BILATERAL LOWER EXTREMITIES. LUMBAR: PALPATION: + FOR PAIN OVER L/S SPINE. + FOR PAIN OVER L/S PARASPINALS WELL-HEALED SURGICAL SCAR L/S AXIS. DIAGNOSTIC TESTS REVIEWEDMRI L/S SPINE . 06/2019. ASSESSMENTS SPONDYLOSIS WITHOUT MYELOPATHY OR RADICULOPATHY, LUMBAR REGION - M47.816 (PRIMARY) OTHER CHRONIC PAIN - G89.29 POST LAMINECTOMY SYNDROME - M96.1 TREATMENT SPONDYLOSIS WITHOUT MYELOPATHY OR RADICULOPATHY, LUMBAR REGION NOTES: BILATERAL DIAGNOSTIC LUMBAR FACET BLOCK L4-5,L5-S1 PRINTED AND REVIEWED PRE PROCEDURE WITH PATIENT EZEKIEL CORLEY. OTHER CHRONIC PAIN PAIN PROCEDURE LOGDATE OF PROCEDURE1PROCEDURE:BILATERAL DIAGNOSTIC LUMBAR FACET BLOCK #1 L4-L5,L5-Z1IBTIMJ OF PRE SEDATE0/0RESULT:GREATER THAN 80% REDUCTION IN PAIN FOR SEVERAL HOURS POSTPROCEDURESLUIS SANTOS 07/28/2020 5:14:14 PM > ANDREA, CAN YOU PLEASE PUT THE PROCEDURE RESULTS IN THIS PROCEDURE LOG? THANKS. PROCEDURE CODES FA211 ESTABILISHED PATIENT [facility] FACILITY CHARGE DISPOSITION & COMMUNICATION FOLLOW UP POST PROCEDURE (REASON: BILATERAL DIAGNOSTIC LUMBAR FACET BLOCK L4-5,L5-S1) ELECTRONICALLY SIGNED BY CARIDAD HENLEY ON 07/30/2020 AT 12:37 PM EDT DISCLAIMER : THIS IS A VISIT SUMMARY EXTRACTED FROM THE [employer] CHART. IT IS NOT A COPY OF THE [employer] PROGRESS NOTE. ZINA
--- NOTE | 2020-07-31 06:34 | ECWPNPC ---
PATIENT NAME: LOGAN CRAVEN : 1960 GENDER: FEMALE VISIT DATE: 07/27/2020 DISCHARGE DATE: 07/27/20 1058 VISIT LOCKED DATE TIME: PHYSICIAN: ANDREA ELIAS PHYSICIAN PAGER NO: ACTIVE RESOURCE: ANDREA ELIAS REASON FOR APPOINTMENT 1. POST BILATERAL DIAGNOSTIC LUMBAR FACET BLOCK #1 L4-L5, L5-S1 HISTORY OF PRESENT ILLNESS GENERAL: HERE FOR POST PROCEDURE FOLLOW-UP. HAD BILATERAL L4-5, L5-S1 LUMBAR DIAGNOSTIC FACET BLOCK ON 07/12/2020. HOURLY DIARY IS REVIEWED AND SHOWS GREATER THAN 80% REDUCTION IN PAIN FOR SEVERAL DAYS. PAIN IS BEGINNING TO RETURN TO BASELINE. DISCUSSED DIAGNOSTIC TESTING #2 AND PROCEEDING WITH RADIOFREQUENCY.-. FALL RISK SCREENING: SCREENING : NO FALLS REPORTED IN THE LAST YEAR. PAIN SCREENING: PATIENT HAS A COMPLAINT OF ACUTE OR CHRONIC PAIN :YES LOCATION OF PAIN:LOW BACK INTENSITY OF PAIN (SCALE OF 1 TO 10):4 WHAT DOES YOUR PAIN FEEL LIKE:CONTINOUS DURATION:CONSTANT PAIN IS INCREASED BY:ACTIVITIES, PROLONGED STANDING, OTHERS WALKING PAIN IS DECREASED BY:OTHERS RESTING AND HEAT AND ICE NURSING NOTE: -. PAIN CENTER INTAKE QUESTIONS: DO YOU HAVE A HISTORY OF MRSA? :NO DO YOU TAKE A BLOOD THINNERS? :YES ELMIRON DO YOU HAVE ANY BLEEDING DISORDERS? :NO ANY NEW NUMBNESS OR WEAKNESS IN YOUR LEGS OR ARMS? :NO ANY PACEMAKER,DEFIBRILLATOR, OR DORSAL COLUMN STIMULATOR? :NO DO YOU HAVE ANY RASHES OR OPEN SORES? :NO ARE YOU ALLERGIC TO IV DYE? :NO ARE YOU DIABETIC? :NO ANY NEW PROBLEMS WITH YOUR MEDICATIONS? :NO HAVE YOU RECEIVED A VACCINE IN THE PAST 30 DAYS? :NO DO YOU PLAN TO RECEIVE A VACCINE IN THE NEXT 21 DAYS? :NO DO YOU NEED ANY PRESCRIPTION? :NO DO YOU TAKE ANY IMMUNOSUPPRESSIVE MEDICATIONS? :YES LEFLUNOMIDE AND ENBREL SURECLICK IS THERE A CHANCE YOU COULD BE ? :NO ARE YOU BREAST FEEDING? :NO CURRENT MEDICATIONS TAKING VITAMIN D 2000 UNIT CAPSULE 1 TABLET ORALLY ONCE A DAY TAKING CANE . MISCELLANEOUS QUAD CANE _ QD R27 TAKING CALCIUM 600 + D 600-400 MG-UNIT TABLET 1 TABLET ORALLY ONCE A DAY TAKING ELMIRON 100 MG CAPSULE 1 CAPSULE ON AN EMPTY STOMACH 1 TABLET THREE A DAY TAKING LEFLUNOMIDE 20 MG TABLET 1 TABLET ORALLY ONCE A DAY TAKING ENBREL SURECLICK 50 MG/ML SOLUTION AUTO-INJECTOR DIRECTED SUBCUTANEOUS ONCE A WEEK TAKING CYANOCOBALAMIN 500 MCG TABLET 1 TABLET ORALLY 1 EVERY 5 DAYS TAKING CARAFATE 1 GM TABLET 1 TABLET ON AN EMPTY STOMACH ORALLY AC TID TAKING ATORVASTATIN CALCIUM 20 MG TABLET 1 TABLET ORALLY ONCE A DAY TAKING FISH OIL 1000 MG CAPSULE 1 CAPSULE ORALLY ONCE A DAY TAKING ESCITALOPRAM OXALATE 10 MG TABLET 15MG 1.5 TABLET ORALLY ONCE A DAY TAKING ESOMEPRAZOLE MAGNESIUM 40 MG CAPSULE DELAYED RELEASE 1 CAPSULE ORALLY AC BID TAKING CARISOPRODOL 350 MG TABLET 1 TABLET NEEDED ORALLY TID PRN, MDD 3 TAKING HYDROCODONE-ACETAMINOPHEN 5-325 MG TABLET 1 TABLET NEEDED ORALLY TID PRN MDD = 3 MEDICATION LIST REVIEWED AND RECONCILED WITH THE PATIENT PAST MEDICAL HISTORY RA/OSTEOARTHRITIS/FIBROMYALGIA NICOTINE ADDICTION-08/2011 FEV1 2.5L (101%)/RATIO 97%-1 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 GERD/DYSPEPSIA-06/2016 NORMAL EGD/COLON/SB CAPSULE-R HYPERLIPIDEMIA 2B ENDOMETRIOSIS 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 SPENCER 2008 FOLLOWS WITH WOMAN TO WOMAN HISTORY OF TUBULAR ADENOMA-NORMAL COLONOSCOPY APRIL 2009 NORMAL COLONOSCOPY C - RANDOM BIOPSIES-[place] COLONOSCOPY 07/18/16 REINDL CERVICAL DJD STATUS POST MULTILEVEL FUSION-01/2010 MRI STABLE ACDF C BASELINE DJD ATROPHIC VAGINITIS OSTEOPENIA VITAMIN D DEFICIENCY CHRONIC SINUSITIS / NONE LATELY RECURRENT UTI / YEARS AGO CHRONIC DIARRHEA STATUS POST LAPAROSCOPIC CHOLECYSTECTOMY JULY 2009//[id number] CHRONIC DRY EYES MEMORY LOSS 2 INSOMNIA, WORK STRESS-12/2011 NORMAL MRI BRAIN S AND NORMAL WORKUP LUMBAR DJD-L2/3 BULGE C L IF HNP C L L2 COMPRESSION, L3/4 SEVERE CCS C B L3 COMPRESSION BY 03/2017 MRI LONG-TERM DISABILITY-TAKEN OOW 08/05/[address] BARAJAS, 01/2014 FILLED OUT LTD PAPERWORK FOR GUARDIAN-PATIENT DEFERRED WCE INSOMNIA, COOMORBID ANXIETY OCULAR SURFACE DISEASE ALLERGIES METHOTREXATE (ANTI-RHEUMATIC): MIGRANES - SIDE EFFECTS CYMBALTA: RACING PLUSE, SHAKES - ALLERGY WELLBUTRIN: PALPITATIONS, SEVERE - ALLERGY SULFA (FOR ALLERGY USE ONLY): NAUSEA/VOMITING - ALLERGY LYRICA: PALPITATIONS - ALLERGY CELEXA: PALPITATIONS - SIDE EFFECTS ORENCIA: ANAPHYLAXIS - ALLERGY TOPICAL ALOE VERA: SEVERE ITCHING CANNOT TOLERATE ASA BASED PRODUCTS/ NSAIDS: HX STOMACH BLEED - CONTRAINDICATION SURGICAL HISTORY LAPAROSCOPY X2 CHRISTINE BTL 1982 TVH [address] SPENCER 2008 VAGINAL CUFF BX. IRMA CHANDLER NP 03/07 CHOLECYSTECTOMY 06/09 ACDF-C4-T1 10/06 R BREAST [id number] 09/2010 ABOVE L CTR- FISH 10/27/14 L4-L5 FUSION/LAMINECTOMY 09/2013 NORMAL EGD/COLON/SB CAPSULE-R 06/2016 FUSION C5 C6 1999 HYSTERECTOMY 1988 BENIGN MOLE REMOVAL 2018 SOCIAL HISTORY GENERAL: TOBACCO USE ARE YOU A:CURRENT SMOKER ARE YOU INTERESTED IN QUITTING?THINKING ABOUT QUITTING COUNSELED THE PATIENT ON SMOKING CESSATION, EDUCATION BYXGSTOG03/30/2021 HOW MANY CIGARETTES A DAY DO YOU SMOKE?5 OR LESS HOW SOON AFTER YOU WAKE UP DO YOU SMOKE YOUR FIRST CIGARETTE?AFTER 60 MIN HOW OFTEN DO YOU SMOKE CIGARETTES?EVERY DAY PATIENT COUNSELED ON THE DANGERS OF TOBACCO USE AND URGED TO QUIT:05/26/2020 VAPORNO E-CIGARETTENO LATEX QUESTIONNAIRE LATEX ALLERGY : HAVE YOU EVER DEVELOPED ANY TYPE OF REACTION AFTER HANDLING LATEX PRODUCTS SUCH RUBBER GLOVES, CONDOMS, DIAPHRAGMS, BALLOONS, SOCKS, OR UNDERWEAR?NO LATEX ALLERGY : HAVE YOU EVER DEVELOPED ANY TYPE OF REACTION DURING OR AFTER DENTAL APPOINTMENT, VAGINAL/RECTAL EXAMINATION, SURGICAL PROCEDURE, OR ANY OTHER EXPOSURE?NO LATEX RISK : HAVE YOU EVER HAD ANY DIFFICULTY BREATHING OR HIVES AFTER EATING OR HANDLING ANY FRUITS, OR VEGETABLES; SUCH KIWI, BANANAS, STONE FRUITS, OR CHESTNUTSNO LATEX RISK : DO YOU HAVE A PREVIOUS PERSONAL HISTORY OF MORE THAN NINE SURGERIES, SPINA BIFIDA, OR REPEATED CATHERIZATIONS? YES LATEX RISK : ARE YOU FREQUENTLY EXPOSED TO LATEX PRODUCTS IN YOUR OCCUPATION?NO DATE ASKED : 07/27/2020 ALCOHOL USE: NO, ONCE EVERY 4 MONTH. ALCOHOL SCREENING DID YOU HAVE A DRINK CONTAINING ALCOHOL IN THE PAST YEAR?YES HOW OFTEN DID YOU HAVE A DRINK CONTAINING ALCOHOL IN THE PAST YEAR?MONTHLY OR LESS (1 POINT) POINTS1 INTERPRETATIONNEGATIVE RECREATIONAL DRUG USE DRUG USE?NO CAFFEINE CAFFEINE USE?YES 2-3 DAILY SEXUAL HX HAD SEX IN THE LAST 12 MONTHS (VAGINAL, ORAL, OR ANAL)?NO HAVE YOU EVER HAD AN STD?NO HIV / HEP-C SCREENING HIV TEST OFFERED TO PATIENT:YES DATE OFFERED:06/28/2017 TEST ACCEPTED:NO HEP-C TEST OFFERED TO PATIENT:YES DATE OFFERED:06/28/2017 REASON:PATIENT DECLINED TEST ACCEPTED:NO REASON:PATIENT DECLINED CAODAISM [id number] NONE NO PROTESTANT BELIEFS THAT WOULD IMPACT HEALTH CARE. LANGUAGE LANGUAGES SPOKEN:WELSH EDUCATION LEVEL OF EDUCATION:HIGH SCHOOL GED LEARNING BARRIERS / SPECIAL NEEDS CHANGE FROM LAST VISIT?NO BARRIERS TO LEARNING?NO HEARING IMPAIRED?NO TINITUS VISION IMPAIRED?YES :CORRECTIVE LENSES COGNITIVELY IMPAIRED?NO READINESS TO LEARN?YES LEARNING PREFERENCES?NO LEARNING CAPABILITIES PRESENT?YES EMOTIONAL BARRIERS?NO SPECIAL DEVICES?YES :CANE NEEDED MILL OPERATOR HELPER NEEDED?NO DOMESTIC VIOLENCE DO YOU FEEL SAFE IN YOUR ENVIRONMENT?YES OCCUPATION: DISABLED. DIET: AVOIDS GREASY, FRIED FOODS, DAIRY.TRIES TO EAT SMALLER PORTIONS. EXERCISE: LOWER BACK EXERCISES, WALKS TOLERATED. MARITAL STATUS: .. OTHERS AT HOME: DAUGHTER. - PFS REFERRAL NEEDED?NO CLERGY REFERRAL NEEDED?NO PUBLIC HEALTH REFERRAL NEEDED?NO HAS THE PATIENT BEEN EDUCATED REGARDING HIS/HER PLAN OF CARE?YES HAS THE PATIENT BEEN EDUCATED REGARDING PAIN, THE RISK FOR PAIN, THE IMPORTANCE OF EFFECTIVE PAIN MANAGEMENT, AND THE PAIN ASSESSMENT PROCESS?YES ADVANCE DIRECTIVE ADVANCE DIRECTIVE DISCUSSED WITH PATIENT:YES PT STATES SHE HAS A HEALTH CARE PROXY-RAH ROSARIO [phone] HOSPITALIZATION/MAJOR DIAGNOSTIC PROCEDURE SURGICAL RELATED REVIEW OF SYSTEMS CONSTITUTIONAL: ANY RECENT FEVER NO . CHILLS NO . WEIGHT CHANGE OF UNKNOWN REASONS NO . GASTROENTEROLOGY: NEW UNEXPLAINABLE CHANGES IN BOWEL CONTROL NO . CONSTIPATION NO . GENITOURINARY: ANY NEW CHANGE IN BLADDER CONTROL? NO . NEUROLOGY: NEW ONSET DIZZINESS OR NEUROLOGICAL CHANGES NOT MENTIONED NO . NEW NUMBNESS OR PAIN PATTERNS NOT MENTIONED AND PERTINENT TO TODAY'S VISIT NO . CARDIOLOGY: NEW CHEST PRESSURE NO . PATIENT DENIES NO . RESPIRATORY: UNEXPLAINABLE COUGH NO . NEW SHORTNESS OF BREATH NO . VITAL SIGNS WT 125 LBS, HT 64 IN, BMI 21.45 INDEX, BP 126/55 MM HG, HR 85 /MIN, RR 18 /MIN, TEMP 98.3 F, OXYGEN SAT % 96%, SAFE IN ENV? (Y/N) YEST.CARYN CORLEY. EXAMINATION GENERAL EXAMINATION: GENERAL AWAKE,ALERT ,PLEASANT . PSYCH AFFECT NORMAL . LUNGS: LUNG LINDSEY ARE CLEAR TO AUSCULTATION BILATERALLY. GOOD MOVEMENT OF AIR . HEART: S1, S2 IN A REGULAR RATE AND RHYTHM. NO SIGNIFICANT MURMURS, RUBS OR GALLOPS NOTED . MUSCULOSKELETAL: MUSCLE STRENGTH TESTING 5/5 BILATERAL LOWER EXTREMITIES. LUMBAR: PALPATION: + FOR PAIN OVER L/S SPINE. + FOR PAIN OVER L/S PARASPINALS WELL-HEALED SURGICAL SCAR L/S AXIS. DIAGNOSTIC TESTS REVIEWEDMRI L/S SPINE . 06/2019. ASSESSMENTS SPONDYLOSIS WITHOUT MYELOPATHY OR RADICULOPATHY, LUMBAR REGION - M47.816 (PRIMARY) OTHER CHRONIC PAIN - G89.29 POST LAMINECTOMY SYNDROME - M96.1 TREATMENT SPONDYLOSIS WITHOUT MYELOPATHY OR RADICULOPATHY, LUMBAR REGION NOTES: BILATERAL DIAGNOSTIC LUMBAR FACET BLOCK L4-5,L5-S1 PRINTED AND REVIEWED PRE PROCEDURE WITH PATIENT EZEKIEL CORLEY. OTHER CHRONIC PAIN PAIN PROCEDURE LOGDATE OF PROCEDURE1PROCEDURE:BILATERAL DIAGNOSTIC LUMBAR FACET BLOCK #1 L4-L5,L5-B4IULLEG OF PRE SEDATE0/0RESULT:GREATER THAN 80% REDUCTION IN PAIN FOR SEVERAL HOURS POSTPROCEDURESLUIS SANTOS 07/28/2020 5:14:14 PM > ANDREA, CAN YOU PLEASE PUT THE PROCEDURE RESULTS IN THIS PROCEDURE LOG? THANKS. PROCEDURE CODES FA211 ESTABILISHED PATIENT [facility] FACILITY CHARGE DISPOSITION & COMMUNICATION FOLLOW UP POST PROCEDURE (REASON: BILATERAL DIAGNOSTIC LUMBAR FACET BLOCK L4-5,L5-S1) ELECTRONICALLY SIGNED BY CARIDAD HENLEY ON 07/30/2020 AT 12:37 PM EDT DISCLAIMER : THIS IS A VISIT SUMMARY EXTRACTED FROM THE [employer] CHART. IT IS NOT A COPY OF THE [employer] PROGRESS NOTE. ZINA
--- NOTE | 2020-07-31 06:36 | ECWPNPC ---
PATIENT NAME: LOGAN CRAVEN : 1960 GENDER: FEMALE VISIT DATE: 07/27/2020 DISCHARGE DATE: 07/27/20 1058 VISIT LOCKED DATE TIME: PHYSICIAN: ANDREA ELIAS PHYSICIAN PAGER NO: ACTIVE RESOURCE: ANDREA ELIAS REASON FOR APPOINTMENT 1. POST BILATERAL DIAGNOSTIC LUMBAR FACET BLOCK #1 L4-L5, L5-S1 HISTORY OF PRESENT ILLNESS GENERAL: HERE FOR POST PROCEDURE FOLLOW-UP. HAD BILATERAL L4-5, L5-S1 LUMBAR DIAGNOSTIC FACET BLOCK ON 07/12/2020. HOURLY DIARY IS REVIEWED AND SHOWS GREATER THAN 80% REDUCTION IN PAIN FOR SEVERAL DAYS. PAIN IS BEGINNING TO RETURN TO BASELINE. DISCUSSED DIAGNOSTIC TESTING #2 AND PROCEEDING WITH RADIOFREQUENCY.-. FALL RISK SCREENING: SCREENING : NO FALLS REPORTED IN THE LAST YEAR. PAIN SCREENING: PATIENT HAS A COMPLAINT OF ACUTE OR CHRONIC PAIN :YES LOCATION OF PAIN:LOW BACK INTENSITY OF PAIN (SCALE OF 1 TO 10):4 WHAT DOES YOUR PAIN FEEL LIKE:CONTINOUS DURATION:CONSTANT PAIN IS INCREASED BY:ACTIVITIES, PROLONGED STANDING, OTHERS WALKING PAIN IS DECREASED BY:OTHERS RESTING AND HEAT AND ICE NURSING NOTE: -. PAIN CENTER INTAKE QUESTIONS: DO YOU HAVE A HISTORY OF MRSA? :NO DO YOU TAKE A BLOOD THINNERS? :YES ELMIRON DO YOU HAVE ANY BLEEDING DISORDERS? :NO ANY NEW NUMBNESS OR WEAKNESS IN YOUR LEGS OR ARMS? :NO ANY PACEMAKER,DEFIBRILLATOR, OR DORSAL COLUMN STIMULATOR? :NO DO YOU HAVE ANY RASHES OR OPEN SORES? :NO ARE YOU ALLERGIC TO IV DYE? :NO ARE YOU DIABETIC? :NO ANY NEW PROBLEMS WITH YOUR MEDICATIONS? :NO HAVE YOU RECEIVED A VACCINE IN THE PAST 30 DAYS? :NO DO YOU PLAN TO RECEIVE A VACCINE IN THE NEXT 21 DAYS? :NO DO YOU NEED ANY PRESCRIPTION? :NO DO YOU TAKE ANY IMMUNOSUPPRESSIVE MEDICATIONS? :YES LEFLUNOMIDE AND ENBREL SURECLICK IS THERE A CHANCE YOU COULD BE ? :NO ARE YOU BREAST FEEDING? :NO CURRENT MEDICATIONS TAKING VITAMIN D 2000 UNIT CAPSULE 1 TABLET ORALLY ONCE A DAY TAKING CANE . MISCELLANEOUS QUAD CANE _ QD R27 TAKING CALCIUM 600 + D 600-400 MG-UNIT TABLET 1 TABLET ORALLY ONCE A DAY TAKING ELMIRON 100 MG CAPSULE 1 CAPSULE ON AN EMPTY STOMACH 1 TABLET THREE A DAY TAKING LEFLUNOMIDE 20 MG TABLET 1 TABLET ORALLY ONCE A DAY TAKING ENBREL SURECLICK 50 MG/ML SOLUTION AUTO-INJECTOR DIRECTED SUBCUTANEOUS ONCE A WEEK TAKING CYANOCOBALAMIN 500 MCG TABLET 1 TABLET ORALLY 1 EVERY 5 DAYS TAKING CARAFATE 1 GM TABLET 1 TABLET ON AN EMPTY STOMACH ORALLY AC TID TAKING ATORVASTATIN CALCIUM 20 MG TABLET 1 TABLET ORALLY ONCE A DAY TAKING FISH OIL 1000 MG CAPSULE 1 CAPSULE ORALLY ONCE A DAY TAKING ESCITALOPRAM OXALATE 10 MG TABLET 15MG 1.5 TABLET ORALLY ONCE A DAY TAKING ESOMEPRAZOLE MAGNESIUM 40 MG CAPSULE DELAYED RELEASE 1 CAPSULE ORALLY AC BID TAKING CARISOPRODOL 350 MG TABLET 1 TABLET NEEDED ORALLY TID PRN, MDD 3 TAKING HYDROCODONE-ACETAMINOPHEN 5-325 MG TABLET 1 TABLET NEEDED ORALLY TID PRN MDD = 3 MEDICATION LIST REVIEWED AND RECONCILED WITH THE PATIENT PAST MEDICAL HISTORY RA/OSTEOARTHRITIS/FIBROMYALGIA NICOTINE ADDICTION-08/2011 FEV1 2.5L (101%)/RATIO 97%-1 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 GERD/DYSPEPSIA-06/2016 NORMAL EGD/COLON/SB CAPSULE-R HYPERLIPIDEMIA 2B ENDOMETRIOSIS 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 SPENCER 2008 FOLLOWS WITH WOMAN TO WOMAN HISTORY OF TUBULAR ADENOMA-NORMAL COLONOSCOPY APRIL 2009 NORMAL COLONOSCOPY C - RANDOM BIOPSIES-[place] COLONOSCOPY 07/18/16 REINDL CERVICAL DJD STATUS POST MULTILEVEL FUSION-01/2010 MRI STABLE ACDF C BASELINE DJD ATROPHIC VAGINITIS OSTEOPENIA VITAMIN D DEFICIENCY CHRONIC SINUSITIS / NONE LATELY RECURRENT UTI / YEARS AGO CHRONIC DIARRHEA STATUS POST LAPAROSCOPIC CHOLECYSTECTOMY JULY 2009//[id number] CHRONIC DRY EYES MEMORY LOSS 2 INSOMNIA, WORK STRESS-12/2011 NORMAL MRI BRAIN S AND NORMAL WORKUP LUMBAR DJD-L2/3 BULGE C L IF HNP C L L2 COMPRESSION, L3/4 SEVERE CCS C B L3 COMPRESSION BY 03/2017 MRI LONG-TERM DISABILITY-TAKEN OOW 08/05/[address] BARAJAS, 01/2014 FILLED OUT LTD PAPERWORK FOR GUARDIAN-PATIENT DEFERRED WCE INSOMNIA, COOMORBID ANXIETY OCULAR SURFACE DISEASE ALLERGIES METHOTREXATE (ANTI-RHEUMATIC): MIGRANES - SIDE EFFECTS CYMBALTA: RACING PLUSE, SHAKES - ALLERGY WELLBUTRIN: PALPITATIONS, SEVERE - ALLERGY SULFA (FOR ALLERGY USE ONLY): NAUSEA/VOMITING - ALLERGY LYRICA: PALPITATIONS - ALLERGY CELEXA: PALPITATIONS - SIDE EFFECTS ORENCIA: ANAPHYLAXIS - ALLERGY TOPICAL ALOE VERA: SEVERE ITCHING CANNOT TOLERATE ASA BASED PRODUCTS/ NSAIDS: HX STOMACH BLEED - CONTRAINDICATION SURGICAL HISTORY LAPAROSCOPY X2 CHRISTINE BTL 1982 TVH [address] SPENCER 2008 VAGINAL CUFF BX. IRMA CHANDLER NP 03/07 CHOLECYSTECTOMY 06/09 ACDF-C4-T1 10/06 R BREAST ICPMIN-LODGMFMT-SFSZQE 09/2010 ABOVE L CTR- FISH 10/27/14 L4-L5 FUSION/LAMINECTOMY 09/2013 NORMAL EGD/COLON/SB CAPSULE-R 06/2016 FUSION C5 C6 1999 HYSTERECTOMY 1988 BENIGN MOLE REMOVAL 2018 SOCIAL HISTORY GENERAL: TOBACCO USE ARE YOU A:CURRENT SMOKER ARE YOU INTERESTED IN QUITTING?THINKING ABOUT QUITTING COUNSELED THE PATIENT ON SMOKING CESSATION, EDUCATION [id number]/30/2021 HOW MANY CIGARETTES A DAY DO YOU SMOKE?5 OR LESS HOW SOON AFTER YOU WAKE UP DO YOU SMOKE YOUR FIRST CIGARETTE?AFTER 60 MIN HOW OFTEN DO YOU SMOKE CIGARETTES?EVERY DAY PATIENT COUNSELED ON THE DANGERS OF TOBACCO USE AND URGED TO QUIT:05/26/2020 VAPORNO E-CIGARETTENO LATEX QUESTIONNAIRE LATEX ALLERGY : HAVE YOU EVER DEVELOPED ANY TYPE OF REACTION AFTER HANDLING LATEX PRODUCTS SUCH RUBBER GLOVES, CONDOMS, DIAPHRAGMS, BALLOONS, SOCKS, OR UNDERWEAR?NO LATEX ALLERGY : HAVE YOU EVER DEVELOPED ANY TYPE OF REACTION DURING OR AFTER DENTAL APPOINTMENT, VAGINAL/RECTAL EXAMINATION, SURGICAL PROCEDURE, OR ANY OTHER EXPOSURE?NO LATEX RISK : HAVE YOU EVER HAD ANY DIFFICULTY BREATHING OR HIVES AFTER EATING OR HANDLING ANY FRUITS, OR VEGETABLES; SUCH KIWI, BANANAS, STONE FRUITS, OR CHESTNUTSNO LATEX RISK : DO YOU HAVE A PREVIOUS PERSONAL HISTORY OF MORE THAN NINE SURGERIES, SPINA BIFIDA, OR REPEATED CATHERIZATIONS? YES LATEX RISK : ARE YOU FREQUENTLY EXPOSED TO LATEX PRODUCTS IN YOUR OCCUPATION?NO DATE ASKED : 07/27/2020 ALCOHOL USE: NO, ONCE EVERY 4 MONTH. ALCOHOL SCREENING DID YOU HAVE A DRINK CONTAINING ALCOHOL IN THE PAST YEAR?YES HOW OFTEN DID YOU HAVE A DRINK CONTAINING ALCOHOL IN THE PAST YEAR?MONTHLY OR LESS (1 POINT) POINTS1 INTERPRETATIONNEGATIVE RECREATIONAL DRUG USE DRUG USE?NO CAFFEINE CAFFEINE USE?YES 2-3 DAILY SEXUAL HX HAD SEX IN THE LAST 12 MONTHS (VAGINAL, ORAL, OR ANAL)?NO HAVE YOU EVER HAD AN STD?NO HIV / HEP-C SCREENING HIV TEST OFFERED TO PATIENT:YES DATE OFFERED:06/28/2017 TEST ACCEPTED:NO HEP-C TEST OFFERED TO PATIENT:YES DATE OFFERED:06/28/2017 REASON:PATIENT DECLINED TEST ACCEPTED:NO REASON:PATIENT DECLINED [facility] [id number] NONE NO WORSHIP BELIEFS THAT WOULD IMPACT HEALTH CARE. LANGUAGE LANGUAGES SPOKEN:LITHUANIAN EDUCATION LEVEL OF EDUCATION:HIGH SCHOOL GED LEARNING BARRIERS / SPECIAL NEEDS CHANGE FROM LAST VISIT?NO BARRIERS TO LEARNING?NO HEARING IMPAIRED?NO TINITUS VISION IMPAIRED?YES :CORRECTIVE LENSES COGNITIVELY IMPAIRED?NO READINESS TO LEARN?YES LEARNING PREFERENCES?NO LEARNING CAPABILITIES PRESENT?YES EMOTIONAL BARRIERS?NO SPECIAL DEVICES?YES :CANE NEEDED MANPOWER DEVELOPMENT MANAGER NEEDED?NO DOMESTIC VIOLENCE DO YOU FEEL SAFE IN YOUR ENVIRONMENT?YES OCCUPATION: DISABLED. DIET: AVOIDS GREASY, FRIED FOODS, DAIRY.TRIES TO EAT SMALLER PORTIONS. EXERCISE: LOWER BACK EXERCISES, WALKS TOLERATED. MARITAL STATUS: .. OTHERS AT HOME: DAUGHTER. - PFS REFERRAL NEEDED?NO CLERGY REFERRAL NEEDED?NO PUBLIC HEALTH REFERRAL NEEDED?NO HAS THE PATIENT BEEN EDUCATED REGARDING HIS/HER PLAN OF CARE?YES HAS THE PATIENT BEEN EDUCATED REGARDING PAIN, THE RISK FOR PAIN, THE IMPORTANCE OF EFFECTIVE PAIN MANAGEMENT, AND THE PAIN ASSESSMENT PROCESS?YES ADVANCE DIRECTIVE ADVANCE DIRECTIVE DISCUSSED WITH PATIENT:YES PT STATES SHE HAS A HEALTH CARE PROXY-RAH ROSARIO [phone] HOSPITALIZATION/MAJOR DIAGNOSTIC PROCEDURE SURGICAL RELATED REVIEW OF SYSTEMS CONSTITUTIONAL: ANY RECENT FEVER NO . CHILLS NO . WEIGHT CHANGE OF UNKNOWN REASONS NO . GASTROENTEROLOGY: NEW UNEXPLAINABLE CHANGES IN BOWEL CONTROL NO . CONSTIPATION NO . GENITOURINARY: ANY NEW CHANGE IN BLADDER CONTROL? NO . NEUROLOGY: NEW ONSET DIZZINESS OR NEUROLOGICAL CHANGES NOT MENTIONED NO . NEW NUMBNESS OR PAIN PATTERNS NOT MENTIONED AND PERTINENT TO TODAY'S VISIT NO . CARDIOLOGY: NEW CHEST PRESSURE NO . PATIENT DENIES NO . RESPIRATORY: UNEXPLAINABLE COUGH NO . NEW SHORTNESS OF BREATH NO . VITAL SIGNS WT 125 LBS, HT 64 IN, BMI 21.45 INDEX, BP 126/55 MM HG, HR 85 /MIN, RR 18 /MIN, TEMP 98.3 F, OXYGEN SAT % 96%, SAFE IN ENV? (Y/N) YEST.CARYN CORLEY. EXAMINATION GENERAL EXAMINATION: GENERAL AWAKE,ALERT ,PLEASANT . PSYCH AFFECT NORMAL . LUNGS: LUNG LINDSEY ARE CLEAR TO AUSCULTATION BILATERALLY. GOOD MOVEMENT OF AIR . HEART: S1, S2 IN A REGULAR RATE AND RHYTHM. NO SIGNIFICANT MURMURS, RUBS OR GALLOPS NOTED . MUSCULOSKELETAL: MUSCLE STRENGTH TESTING 5/5 BILATERAL LOWER EXTREMITIES. LUMBAR: PALPATION: + FOR PAIN OVER L/S SPINE. + FOR PAIN OVER L/S PARASPINALS WELL-HEALED SURGICAL SCAR L/S AXIS. DIAGNOSTIC TESTS REVIEWEDMRI L/S SPINE . 06/2019. ASSESSMENTS SPONDYLOSIS WITHOUT MYELOPATHY OR RADICULOPATHY, LUMBAR REGION - M47.816 (PRIMARY) OTHER CHRONIC PAIN - G89.29 POST LAMINECTOMY SYNDROME - M96.1 TREATMENT SPONDYLOSIS WITHOUT MYELOPATHY OR RADICULOPATHY, LUMBAR REGION NOTES: BILATERAL DIAGNOSTIC LUMBAR FACET BLOCK L4-5,L5-S1 PRINTED AND REVIEWED PRE PROCEDURE WITH PATIENT EZEKIEL CORLEY. OTHER CHRONIC PAIN PAIN PROCEDURE LOGDATE OF PROCEDURE1PROCEDURE:BILATERAL DIAGNOSTIC LUMBAR FACET BLOCK #1 L4-L5,L5-V8PRQCTJ OF PRE SEDATE0/0RESULT:GREATER THAN 80% REDUCTION IN PAIN FOR SEVERAL HOURS POSTPROCEDURESLUIS SANTOS 07/28/2020 5:14:14 PM > ANDREA, CAN YOU PLEASE PUT THE PROCEDURE RESULTS IN THIS PROCEDURE LOG? THANKS. PROCEDURE CODES FA211 ESTABILISHED PATIENT [facility] CHARGE DISPOSITION & COMMUNICATION FOLLOW UP POST PROCEDURE (REASON: BILATERAL DIAGNOSTIC LUMBAR FACET BLOCK L4-5,L5-S1) ELECTRONICALLY SIGNED BY CARIDAD HENLEY ON 07/30/2020 AT 12:37 PM EDT DISCLAIMER : THIS IS A VISIT SUMMARY EXTRACTED FROM THE [employer] CHART. IT IS NOT A COPY OF THE [employer] PROGRESS NOTE. ZINA
--- NOTE | 2020-07-31 06:38 | ECWPNPC ---
PATIENT NAME: LOGAN CRAVEN : 1960 GENDER: FEMALE VISIT DATE: 07/27/2020 DISCHARGE DATE: 07/27/20 1058 VISIT LOCKED DATE TIME: PHYSICIAN: ANDREA ELIAS PHYSICIAN PAGER NO: ACTIVE RESOURCE: ANDREA ELIAS REASON FOR APPOINTMENT 1. POST BILATERAL DIAGNOSTIC LUMBAR FACET BLOCK #1 L4-L5, L5-S1 HISTORY OF PRESENT ILLNESS GENERAL: HERE FOR POST PROCEDURE FOLLOW-UP. HAD BILATERAL L4-5, L5-S1 LUMBAR DIAGNOSTIC FACET BLOCK ON 07/12/2020. HOURLY DIARY IS REVIEWED AND SHOWS GREATER THAN 80% REDUCTION IN PAIN FOR SEVERAL DAYS. PAIN IS BEGINNING TO RETURN TO BASELINE. DISCUSSED DIAGNOSTIC TESTING #2 AND PROCEEDING WITH RADIOFREQUENCY.-. FALL RISK SCREENING: SCREENING : NO FALLS REPORTED IN THE LAST YEAR. PAIN SCREENING: PATIENT HAS A COMPLAINT OF ACUTE OR CHRONIC PAIN :YES LOCATION OF PAIN:LOW BACK INTENSITY OF PAIN (SCALE OF 1 TO 10):4 WHAT DOES YOUR PAIN FEEL LIKE:CONTINOUS DURATION:CONSTANT PAIN IS INCREASED BY:ACTIVITIES, PROLONGED STANDING, OTHERS WALKING PAIN IS DECREASED BY:OTHERS RESTING AND HEAT AND ICE NURSING NOTE: -. PAIN CENTER INTAKE QUESTIONS: DO YOU HAVE A HISTORY OF MRSA? :NO DO YOU TAKE A BLOOD THINNERS? :YES ELMIRON DO YOU HAVE ANY BLEEDING DISORDERS? :NO ANY NEW NUMBNESS OR WEAKNESS IN YOUR LEGS OR ARMS? :NO ANY PACEMAKER,DEFIBRILLATOR, OR DORSAL COLUMN STIMULATOR? :NO DO YOU HAVE ANY RASHES OR OPEN SORES? :NO ARE YOU ALLERGIC TO IV DYE? :NO ARE YOU DIABETIC? :NO ANY NEW PROBLEMS WITH YOUR MEDICATIONS? :NO HAVE YOU RECEIVED A VACCINE IN THE PAST 30 DAYS? :NO DO YOU PLAN TO RECEIVE A VACCINE IN THE NEXT 21 DAYS? :NO DO YOU NEED ANY PRESCRIPTION? :NO DO YOU TAKE ANY IMMUNOSUPPRESSIVE MEDICATIONS? :YES LEFLUNOMIDE AND ENBREL SURECLICK IS THERE A CHANCE YOU COULD BE ? :NO ARE YOU BREAST FEEDING? :NO CURRENT MEDICATIONS TAKING VITAMIN D 2000 UNIT CAPSULE 1 TABLET ORALLY ONCE A DAY TAKING CANE . MISCELLANEOUS QUAD CANE _ QD R27 TAKING CALCIUM 600 + D 600-400 MG-UNIT TABLET 1 TABLET ORALLY ONCE A DAY TAKING ELMIRON 100 MG CAPSULE 1 CAPSULE ON AN EMPTY STOMACH 1 TABLET THREE A DAY TAKING LEFLUNOMIDE 20 MG TABLET 1 TABLET ORALLY ONCE A DAY TAKING ENBREL SURECLICK 50 MG/ML SOLUTION AUTO-INJECTOR DIRECTED SUBCUTANEOUS ONCE A WEEK TAKING CYANOCOBALAMIN 500 MCG TABLET 1 TABLET ORALLY 1 EVERY 5 DAYS TAKING CARAFATE 1 GM TABLET 1 TABLET ON AN EMPTY STOMACH ORALLY AC TID TAKING ATORVASTATIN CALCIUM 20 MG TABLET 1 TABLET ORALLY ONCE A DAY TAKING FISH OIL 1000 MG CAPSULE 1 CAPSULE ORALLY ONCE A DAY TAKING ESCITALOPRAM OXALATE 10 MG TABLET 15MG 1.5 TABLET ORALLY ONCE A DAY TAKING ESOMEPRAZOLE MAGNESIUM 40 MG CAPSULE DELAYED RELEASE 1 CAPSULE ORALLY AC BID TAKING CARISOPRODOL 350 MG TABLET 1 TABLET NEEDED ORALLY TID PRN, MDD 3 TAKING HYDROCODONE-ACETAMINOPHEN 5-325 MG TABLET 1 TABLET NEEDED ORALLY TID PRN MDD = 3 MEDICATION LIST REVIEWED AND RECONCILED WITH THE PATIENT PAST MEDICAL HISTORY RA/OSTEOARTHRITIS/FIBROMYALGIA NICOTINE ADDICTION-08/2011 FEV1 2.5L (101%)/RATIO 97%-1 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 GERD/DYSPEPSIA-06/2016 NORMAL EGD/COLON/SB CAPSULE-R HYPERLIPIDEMIA 2B ENDOMETRIOSIS 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 SPENCER 2008 FOLLOWS WITH WOMAN TO WOMAN HISTORY OF TUBULAR ADENOMA-NORMAL COLONOSCOPY APRIL 2009 NORMAL COLONOSCOPY C - RANDOM BIOPSIES-[place] COLONOSCOPY 07/18/16 REINDL CERVICAL DJD STATUS POST MULTILEVEL FUSION-01/2010 MRI STABLE ACDF C BASELINE DJD ATROPHIC VAGINITIS OSTEOPENIA VITAMIN D DEFICIENCY CHRONIC SINUSITIS / NONE LATELY RECURRENT UTI / YEARS AGO CHRONIC DIARRHEA STATUS POST LAPAROSCOPIC CHOLECYSTECTOMY JULY 2009//[id number] CHRONIC DRY EYES MEMORY LOSS 2 INSOMNIA, WORK STRESS-12/2011 NORMAL MRI BRAIN S AND NORMAL WORKUP LUMBAR DJD-L2/3 BULGE C L IF HNP C L L2 COMPRESSION, L3/4 SEVERE CCS C B L3 COMPRESSION BY 03/2017 MRI LONG-TERM DISABILITY-TAKEN OOW 08/05/[address] BARAJAS, 01/2014 FILLED OUT LTD PAPERWORK FOR GUARDIAN-PATIENT DEFERRED WCE INSOMNIA, COOMORBID ANXIETY OCULAR SURFACE DISEASE ALLERGIES METHOTREXATE (ANTI-RHEUMATIC): MIGRANES - SIDE EFFECTS CYMBALTA: RACING PLUSE, SHAKES - ALLERGY WELLBUTRIN: PALPITATIONS, SEVERE - ALLERGY SULFA (FOR ALLERGY USE ONLY): NAUSEA/VOMITING - ALLERGY LYRICA: PALPITATIONS - ALLERGY CELEXA: PALPITATIONS - SIDE EFFECTS ORENCIA: ANAPHYLAXIS - ALLERGY TOPICAL ALOE VERA: SEVERE ITCHING CANNOT TOLERATE ASA BASED PRODUCTS/ NSAIDS: HX STOMACH BLEED - CONTRAINDICATION SURGICAL HISTORY LAPAROSCOPY X2 CHRISTINE BTL 1982 TVH [address] SPENCER 2008 VAGINAL CUFF BX. IRMA CHANDLER NP 03/07 CHOLECYSTECTOMY 06/09 ACDF-C4-T1 10/06 R BREAST [id number]-[id number] 09/2010 ABOVE L CTR- FISH 10/27/14 L4-L5 FUSION/LAMINECTOMY 09/2013 NORMAL EGD/COLON/SB CAPSULE-R 06/2016 FUSION C5 C6 1999 HYSTERECTOMY 1988 BENIGN MOLE REMOVAL 2018 SOCIAL HISTORY GENERAL: TOBACCO USE ARE YOU A:CURRENT SMOKER ARE YOU INTERESTED IN QUITTING?THINKING ABOUT QUITTING COUNSELED THE PATIENT ON SMOKING CESSATION, EDUCATION [id number]/30/2021 HOW MANY CIGARETTES A DAY DO YOU SMOKE?5 OR LESS HOW SOON AFTER YOU WAKE UP DO YOU SMOKE YOUR FIRST CIGARETTE?AFTER 60 MIN HOW OFTEN DO YOU SMOKE CIGARETTES?EVERY DAY PATIENT COUNSELED ON THE DANGERS OF TOBACCO USE AND URGED TO QUIT:05/26/2020 VAPORNO E-CIGARETTENO LATEX QUESTIONNAIRE LATEX ALLERGY : HAVE YOU EVER DEVELOPED ANY TYPE OF REACTION AFTER HANDLING LATEX PRODUCTS SUCH RUBBER GLOVES, CONDOMS, DIAPHRAGMS, BALLOONS, SOCKS, OR UNDERWEAR?NO LATEX ALLERGY : HAVE YOU EVER DEVELOPED ANY TYPE OF REACTION DURING OR AFTER DENTAL APPOINTMENT, VAGINAL/RECTAL EXAMINATION, SURGICAL PROCEDURE, OR ANY OTHER EXPOSURE?NO LATEX RISK : HAVE YOU EVER HAD ANY DIFFICULTY BREATHING OR HIVES AFTER EATING OR HANDLING ANY FRUITS, OR VEGETABLES; SUCH KIWI, BANANAS, STONE FRUITS, OR CHESTNUTSNO LATEX RISK : DO YOU HAVE A PREVIOUS PERSONAL HISTORY OF MORE THAN NINE SURGERIES, SPINA BIFIDA, OR REPEATED CATHERIZATIONS? YES LATEX RISK : ARE YOU FREQUENTLY EXPOSED TO LATEX PRODUCTS IN YOUR OCCUPATION?NO DATE ASKED : 07/27/2020 ALCOHOL USE: NO, ONCE EVERY 4 MONTH. ALCOHOL SCREENING DID YOU HAVE A DRINK CONTAINING ALCOHOL IN THE PAST YEAR?YES HOW OFTEN DID YOU HAVE A DRINK CONTAINING ALCOHOL IN THE PAST YEAR?MONTHLY OR LESS (1 POINT) POINTS1 INTERPRETATIONNEGATIVE RECREATIONAL DRUG USE DRUG USE?NO CAFFEINE CAFFEINE USE?YES 2-3 DAILY SEXUAL HX HAD SEX IN THE LAST 12 MONTHS (VAGINAL, ORAL, OR ANAL)?NO HAVE YOU EVER HAD AN STD?NO HIV / HEP-C SCREENING HIV TEST OFFERED TO PATIENT:YES DATE OFFERED:06/28/2017 TEST ACCEPTED:NO HEP-C TEST OFFERED TO PATIENT:YES DATE OFFERED:06/28/2017 REASON:PATIENT DECLINED TEST ACCEPTED:NO REASON:PATIENT DECLINED SPIRITISM [id number] NONE NO JAINISM BELIEFS THAT WOULD IMPACT HEALTH CARE. LANGUAGE LANGUAGES SPOKEN:TURKISH EDUCATION LEVEL OF EDUCATION:HIGH SCHOOL GED LEARNING BARRIERS / SPECIAL NEEDS CHANGE FROM LAST VISIT?NO BARRIERS TO LEARNING?NO HEARING IMPAIRED?NO TINITUS VISION IMPAIRED?YES :CORRECTIVE LENSES COGNITIVELY IMPAIRED?NO READINESS TO LEARN?YES LEARNING PREFERENCES?NO LEARNING CAPABILITIES PRESENT?YES EMOTIONAL BARRIERS?NO SPECIAL DEVICES?YES :CANE NEEDED SOCIAL SCIENCES RESEARCH SCIENTIST NEEDED?NO DOMESTIC VIOLENCE DO YOU FEEL SAFE IN YOUR ENVIRONMENT?YES OCCUPATION: DISABLED. DIET: AVOIDS GREASY, FRIED FOODS, DAIRY.TRIES TO EAT SMALLER PORTIONS. EXERCISE: LOWER BACK EXERCISES, WALKS TOLERATED. MARITAL STATUS: .. OTHERS AT HOME: DAUGHTER. - PFS REFERRAL NEEDED?NO CLERGY REFERRAL NEEDED?NO PUBLIC HEALTH REFERRAL NEEDED?NO HAS THE PATIENT BEEN EDUCATED REGARDING HIS/HER PLAN OF CARE?YES HAS THE PATIENT BEEN EDUCATED REGARDING PAIN, THE RISK FOR PAIN, THE IMPORTANCE OF EFFECTIVE PAIN MANAGEMENT, AND THE PAIN ASSESSMENT PROCESS?YES ADVANCE DIRECTIVE ADVANCE DIRECTIVE DISCUSSED WITH PATIENT:YES PT STATES SHE HAS A HEALTH CARE PROXY-RAH ROSARIO [phone] HOSPITALIZATION/MAJOR DIAGNOSTIC PROCEDURE SURGICAL RELATED REVIEW OF SYSTEMS CONSTITUTIONAL: ANY RECENT FEVER NO . CHILLS NO . WEIGHT CHANGE OF UNKNOWN REASONS NO . GASTROENTEROLOGY: NEW UNEXPLAINABLE CHANGES IN BOWEL CONTROL NO . CONSTIPATION NO . GENITOURINARY: ANY NEW CHANGE IN BLADDER CONTROL? NO . NEUROLOGY: NEW ONSET DIZZINESS OR NEUROLOGICAL CHANGES NOT MENTIONED NO . NEW NUMBNESS OR PAIN PATTERNS NOT MENTIONED AND PERTINENT TO TODAY'S VISIT NO . CARDIOLOGY: NEW CHEST PRESSURE NO . PATIENT DENIES NO . RESPIRATORY: UNEXPLAINABLE COUGH NO . NEW SHORTNESS OF BREATH NO . VITAL SIGNS WT 125 LBS, HT 64 IN, BMI 21.45 INDEX, BP 126/55 MM HG, HR 85 /MIN, RR 18 /MIN, TEMP 98.3 F, OXYGEN SAT % 96%, SAFE IN ENV? (Y/N) YEST.CARYN CORLEY. EXAMINATION GENERAL EXAMINATION: GENERAL AWAKE,ALERT ,PLEASANT . PSYCH AFFECT NORMAL . LUNGS: LUNG LINDSEY ARE CLEAR TO AUSCULTATION BILATERALLY. GOOD MOVEMENT OF AIR . HEART: S1, S2 IN A REGULAR RATE AND RHYTHM. NO SIGNIFICANT MURMURS, RUBS OR GALLOPS NOTED . MUSCULOSKELETAL: MUSCLE STRENGTH TESTING 5/5 BILATERAL LOWER EXTREMITIES. LUMBAR: PALPATION: + FOR PAIN OVER L/S SPINE. + FOR PAIN OVER L/S PARASPINALS WELL-HEALED SURGICAL SCAR L/S AXIS. DIAGNOSTIC TESTS REVIEWEDMRI L/S SPINE . 06/2019. ASSESSMENTS SPONDYLOSIS WITHOUT MYELOPATHY OR RADICULOPATHY, LUMBAR REGION - M47.816 (PRIMARY) OTHER CHRONIC PAIN - G89.29 POST LAMINECTOMY SYNDROME - M96.1 TREATMENT SPONDYLOSIS WITHOUT MYELOPATHY OR RADICULOPATHY, LUMBAR REGION NOTES: BILATERAL DIAGNOSTIC LUMBAR FACET BLOCK L4-5,L5-S1 PRINTED AND REVIEWED PRE PROCEDURE WITH PATIENT EZEKIEL CORLEY. OTHER CHRONIC PAIN PAIN PROCEDURE LOGDATE OF PROCEDURE1PROCEDURE:BILATERAL DIAGNOSTIC LUMBAR FACET BLOCK #1 L4-L5,L5-A3JNVVOZ OF PRE SEDATE0/0RESULT:GREATER THAN 80% REDUCTION IN PAIN FOR SEVERAL HOURS POSTPROCEDURESLUIS SANTOS 07/28/2020 5:14:14 PM > ANDREA, CAN YOU PLEASE PUT THE PROCEDURE RESULTS IN THIS PROCEDURE LOG? THANKS. PROCEDURE CODES FA211 ESTABILISHED PATIENT [facility] CHARGE DISPOSITION & COMMUNICATION FOLLOW UP POST PROCEDURE (REASON: BILATERAL DIAGNOSTIC LUMBAR FACET BLOCK L4-5,L5-S1) ELECTRONICALLY SIGNED BY CARIDAD HENLEY ON 07/30/2020 AT 12:37 PM EDT DISCLAIMER : THIS IS A VISIT SUMMARY EXTRACTED FROM THE [employer] CHART. IT IS NOT A COPY OF THE [employer] PROGRESS NOTE. ZINA
--- NOTE | 2020-07-31 06:39 | ECWPNPC ---
PATIENT NAME: LOGAN CRAVEN : 1960 GENDER: FEMALE VISIT DATE: 07/27/2020 DISCHARGE DATE: 07/27/20 1058 VISIT LOCKED DATE TIME: PHYSICIAN: ANDREA ELIAS PHYSICIAN PAGER NO: ACTIVE RESOURCE: ANDREA ELIAS REASON FOR APPOINTMENT 1. POST BILATERAL DIAGNOSTIC LUMBAR FACET BLOCK #1 L4-L5, L5-S1 HISTORY OF PRESENT ILLNESS GENERAL: HERE FOR POST PROCEDURE FOLLOW-UP. HAD BILATERAL L4-5, L5-S1 LUMBAR DIAGNOSTIC FACET BLOCK ON 07/12/2020. HOURLY DIARY IS REVIEWED AND SHOWS GREATER THAN 80% REDUCTION IN PAIN FOR SEVERAL DAYS. PAIN IS BEGINNING TO RETURN TO BASELINE. DISCUSSED DIAGNOSTIC TESTING #2 AND PROCEEDING WITH RADIOFREQUENCY.-. FALL RISK SCREENING: SCREENING : NO FALLS REPORTED IN THE LAST YEAR. PAIN SCREENING: PATIENT HAS A COMPLAINT OF ACUTE OR CHRONIC PAIN :YES LOCATION OF PAIN:LOW BACK INTENSITY OF PAIN (SCALE OF 1 TO 10):4 WHAT DOES YOUR PAIN FEEL LIKE:CONTINOUS DURATION:CONSTANT PAIN IS INCREASED BY:ACTIVITIES, PROLONGED STANDING, OTHERS WALKING PAIN IS DECREASED BY:OTHERS RESTING AND HEAT AND ICE NURSING NOTE: -. PAIN CENTER INTAKE QUESTIONS: DO YOU HAVE A HISTORY OF MRSA? :NO DO YOU TAKE A BLOOD THINNERS? :YES ELMIRON DO YOU HAVE ANY BLEEDING DISORDERS? :NO ANY NEW NUMBNESS OR WEAKNESS IN YOUR LEGS OR ARMS? :NO ANY PACEMAKER,DEFIBRILLATOR, OR DORSAL COLUMN STIMULATOR? :NO DO YOU HAVE ANY RASHES OR OPEN SORES? :NO ARE YOU ALLERGIC TO IV DYE? :NO ARE YOU DIABETIC? :NO ANY NEW PROBLEMS WITH YOUR MEDICATIONS? :NO HAVE YOU RECEIVED A VACCINE IN THE PAST 30 DAYS? :NO DO YOU PLAN TO RECEIVE A VACCINE IN THE NEXT 21 DAYS? :NO DO YOU NEED ANY PRESCRIPTION? :NO DO YOU TAKE ANY IMMUNOSUPPRESSIVE MEDICATIONS? :YES LEFLUNOMIDE AND ENBREL SURECLICK IS THERE A CHANCE YOU COULD BE ? :NO ARE YOU BREAST FEEDING? :NO CURRENT MEDICATIONS TAKING VITAMIN D 2000 UNIT CAPSULE 1 TABLET ORALLY ONCE A DAY TAKING CANE . MISCELLANEOUS QUAD CANE _ QD R27 TAKING CALCIUM 600 + D 600-400 MG-UNIT TABLET 1 TABLET ORALLY ONCE A DAY TAKING ELMIRON 100 MG CAPSULE 1 CAPSULE ON AN EMPTY STOMACH 1 TABLET THREE A DAY TAKING LEFLUNOMIDE 20 MG TABLET 1 TABLET ORALLY ONCE A DAY TAKING ENBREL SURECLICK 50 MG/ML SOLUTION AUTO-INJECTOR DIRECTED SUBCUTANEOUS ONCE A WEEK TAKING CYANOCOBALAMIN 500 MCG TABLET 1 TABLET ORALLY 1 EVERY 5 DAYS TAKING CARAFATE 1 GM TABLET 1 TABLET ON AN EMPTY STOMACH ORALLY AC TID TAKING ATORVASTATIN CALCIUM 20 MG TABLET 1 TABLET ORALLY ONCE A DAY TAKING FISH OIL 1000 MG CAPSULE 1 CAPSULE ORALLY ONCE A DAY TAKING ESCITALOPRAM OXALATE 10 MG TABLET 15MG 1.5 TABLET ORALLY ONCE A DAY TAKING ESOMEPRAZOLE MAGNESIUM 40 MG CAPSULE DELAYED RELEASE 1 CAPSULE ORALLY AC BID TAKING CARISOPRODOL 350 MG TABLET 1 TABLET NEEDED ORALLY TID PRN, MDD 3 TAKING HYDROCODONE-ACETAMINOPHEN 5-325 MG TABLET 1 TABLET NEEDED ORALLY TID PRN MDD = 3 MEDICATION LIST REVIEWED AND RECONCILED WITH THE PATIENT PAST MEDICAL HISTORY RA/OSTEOARTHRITIS/FIBROMYALGIA NICOTINE ADDICTION-08/2011 FEV1 2.5L (101%)/RATIO 97%-1 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 GERD/DYSPEPSIA-06/2016 NORMAL EGD/COLON/SB CAPSULE-R HYPERLIPIDEMIA 2B ENDOMETRIOSIS 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 SPENCER 2008 FOLLOWS WITH WOMAN TO WOMAN HISTORY OF TUBULAR ADENOMA-NORMAL COLONOSCOPY APRIL 2009 NORMAL COLONOSCOPY C - RANDOM BIOPSIES-[place] COLONOSCOPY 07/18/16 REINDL CERVICAL DJD STATUS POST MULTILEVEL FUSION-01/2010 MRI STABLE ACDF C BASELINE DJD ATROPHIC VAGINITIS OSTEOPENIA VITAMIN D DEFICIENCY CHRONIC SINUSITIS / NONE LATELY RECURRENT UTI / YEARS AGO CHRONIC DIARRHEA STATUS POST LAPAROSCOPIC CHOLECYSTECTOMY JULY 2009//[id number] CHRONIC DRY EYES MEMORY LOSS 2 INSOMNIA, WORK STRESS-12/2011 NORMAL MRI BRAIN S AND NORMAL WORKUP LUMBAR DJD-L2/3 BULGE C L IF HNP C L L2 COMPRESSION, L3/4 SEVERE CCS C B L3 COMPRESSION BY 03/2017 MRI LONG-TERM DISABILITY-TAKEN OOW 08/05/[address] BARAJAS, 01/2014 FILLED OUT LTD PAPERWORK FOR GUARDIAN-PATIENT DEFERRED WCE INSOMNIA, COOMORBID ANXIETY OCULAR SURFACE DISEASE ALLERGIES METHOTREXATE (ANTI-RHEUMATIC): MIGRANES - SIDE EFFECTS CYMBALTA: RACING PLUSE, SHAKES - ALLERGY WELLBUTRIN: PALPITATIONS, SEVERE - ALLERGY SULFA (FOR ALLERGY USE ONLY): NAUSEA/VOMITING - ALLERGY LYRICA: PALPITATIONS - ALLERGY CELEXA: PALPITATIONS - SIDE EFFECTS ORENCIA: ANAPHYLAXIS - ALLERGY TOPICAL ALOE VERA: SEVERE ITCHING CANNOT TOLERATE ASA BASED PRODUCTS/ NSAIDS: HX STOMACH BLEED - CONTRAINDICATION SURGICAL HISTORY LAPAROSCOPY X2 CHRISTINE BTL 1982 TVH [address] SPENCER 2008 VAGINAL CUFF BX. IRMA CHANDLER NP 03/07 CHOLECYSTECTOMY 06/09 ACDF-C4-T1 10/06 R BREAST [id number] 09/2010 ABOVE L CTR- FISH 10/27/14 L4-L5 FUSION/LAMINECTOMY 09/2013 NORMAL EGD/COLON/SB CAPSULE-R 06/2016 FUSION C5 C6 1999 HYSTERECTOMY 1988 BENIGN MOLE REMOVAL 2018 SOCIAL HISTORY GENERAL: TOBACCO USE ARE YOU A:CURRENT SMOKER ARE YOU INTERESTED IN QUITTING?THINKING ABOUT QUITTING COUNSELED THE PATIENT ON SMOKING CESSATION, EDUCATION [id number]/30/2021 HOW MANY CIGARETTES A DAY DO YOU SMOKE?5 OR LESS HOW SOON AFTER YOU WAKE UP DO YOU SMOKE YOUR FIRST CIGARETTE?AFTER 60 MIN HOW OFTEN DO YOU SMOKE CIGARETTES?EVERY DAY PATIENT COUNSELED ON THE DANGERS OF TOBACCO USE AND URGED TO QUIT:05/26/2020 VAPORNO E-CIGARETTENO LATEX QUESTIONNAIRE LATEX ALLERGY : HAVE YOU EVER DEVELOPED ANY TYPE OF REACTION AFTER HANDLING LATEX PRODUCTS SUCH RUBBER GLOVES, CONDOMS, DIAPHRAGMS, BALLOONS, SOCKS, OR UNDERWEAR?NO LATEX ALLERGY : HAVE YOU EVER DEVELOPED ANY TYPE OF REACTION DURING OR AFTER DENTAL APPOINTMENT, VAGINAL/RECTAL EXAMINATION, SURGICAL PROCEDURE, OR ANY OTHER EXPOSURE?NO LATEX RISK : HAVE YOU EVER HAD ANY DIFFICULTY BREATHING OR HIVES AFTER EATING OR HANDLING ANY FRUITS, OR VEGETABLES; SUCH KIWI, BANANAS, STONE FRUITS, OR CHESTNUTSNO LATEX RISK : DO YOU HAVE A PREVIOUS PERSONAL HISTORY OF MORE THAN NINE SURGERIES, SPINA BIFIDA, OR REPEATED CATHERIZATIONS? YES LATEX RISK : ARE YOU FREQUENTLY EXPOSED TO LATEX PRODUCTS IN YOUR OCCUPATION?NO DATE ASKED : 07/27/2020 ALCOHOL USE: NO, ONCE EVERY 4 MONTH. ALCOHOL SCREENING DID YOU HAVE A DRINK CONTAINING ALCOHOL IN THE PAST YEAR?YES HOW OFTEN DID YOU HAVE A DRINK CONTAINING ALCOHOL IN THE PAST YEAR?MONTHLY OR LESS (1 POINT) POINTS1 INTERPRETATIONNEGATIVE RECREATIONAL DRUG USE DRUG USE?NO CAFFEINE CAFFEINE USE?YES 2-3 DAILY SEXUAL HX HAD SEX IN THE LAST 12 MONTHS (VAGINAL, ORAL, OR ANAL)?NO HAVE YOU EVER HAD AN STD?NO HIV / HEP-C SCREENING HIV TEST OFFERED TO PATIENT:YES DATE OFFERED:06/28/2017 TEST ACCEPTED:NO HEP-C TEST OFFERED TO PATIENT:YES DATE OFFERED:06/28/2017 REASON:PATIENT DECLINED TEST ACCEPTED:NO REASON:PATIENT DECLINED ISLAM [id number] NONE NO FAITH BELIEFS THAT WOULD IMPACT HEALTH CARE. LANGUAGE LANGUAGES SPOKEN:WOLOF EDUCATION LEVEL OF EDUCATION:HIGH SCHOOL GED LEARNING BARRIERS / SPECIAL NEEDS CHANGE FROM LAST VISIT?NO BARRIERS TO LEARNING?NO HEARING IMPAIRED?NO TINITUS VISION IMPAIRED?YES :CORRECTIVE LENSES COGNITIVELY IMPAIRED?NO READINESS TO LEARN?YES LEARNING PREFERENCES?NO LEARNING CAPABILITIES PRESENT?YES EMOTIONAL BARRIERS?NO SPECIAL DEVICES?YES :CANE NEEDED IC DESIGNER STANDARD CELLS NEEDED?NO DOMESTIC VIOLENCE DO YOU FEEL SAFE IN YOUR ENVIRONMENT?YES OCCUPATION: DISABLED. DIET: AVOIDS GREASY, FRIED FOODS, DAIRY.TRIES TO EAT SMALLER PORTIONS. EXERCISE: LOWER BACK EXERCISES, WALKS TOLERATED. MARITAL STATUS: .. OTHERS AT HOME: DAUGHTER. - PFS REFERRAL NEEDED?NO CLERGY REFERRAL NEEDED?NO PUBLIC HEALTH REFERRAL NEEDED?NO HAS THE PATIENT BEEN EDUCATED REGARDING HIS/HER PLAN OF CARE?YES HAS THE PATIENT BEEN EDUCATED REGARDING PAIN, THE RISK FOR PAIN, THE IMPORTANCE OF EFFECTIVE PAIN MANAGEMENT, AND THE PAIN ASSESSMENT PROCESS?YES ADVANCE DIRECTIVE ADVANCE DIRECTIVE DISCUSSED WITH PATIENT:YES PT STATES SHE HAS A HEALTH CARE PROXY-RAH ROSARIO [phone] HOSPITALIZATION/MAJOR DIAGNOSTIC PROCEDURE SURGICAL RELATED REVIEW OF SYSTEMS CONSTITUTIONAL: ANY RECENT FEVER NO . CHILLS NO . WEIGHT CHANGE OF UNKNOWN REASONS NO . GASTROENTEROLOGY: NEW UNEXPLAINABLE CHANGES IN BOWEL CONTROL NO . CONSTIPATION NO . GENITOURINARY: ANY NEW CHANGE IN BLADDER CONTROL? NO . NEUROLOGY: NEW ONSET DIZZINESS OR NEUROLOGICAL CHANGES NOT MENTIONED NO . NEW NUMBNESS OR PAIN PATTERNS NOT MENTIONED AND PERTINENT TO TODAY'S VISIT NO . CARDIOLOGY: NEW CHEST PRESSURE NO . PATIENT DENIES NO . RESPIRATORY: UNEXPLAINABLE COUGH NO . NEW SHORTNESS OF BREATH NO . VITAL SIGNS WT 125 LBS, HT 64 IN, BMI 21.45 INDEX, BP 126/55 MM HG, HR 85 /MIN, RR 18 /MIN, TEMP 98.3 F, OXYGEN SAT % 96%, SAFE IN ENV? (Y/N) YEST.CARYN CORLEY. EXAMINATION GENERAL EXAMINATION: GENERAL AWAKE,ALERT ,PLEASANT . PSYCH AFFECT NORMAL . LUNGS: LUNG LINDSEY ARE CLEAR TO AUSCULTATION BILATERALLY. GOOD MOVEMENT OF AIR . HEART: S1, S2 IN A REGULAR RATE AND RHYTHM. NO SIGNIFICANT MURMURS, RUBS OR GALLOPS NOTED . MUSCULOSKELETAL: MUSCLE STRENGTH TESTING 5/5 BILATERAL LOWER EXTREMITIES. LUMBAR: PALPATION: + FOR PAIN OVER L/S SPINE. + FOR PAIN OVER L/S PARASPINALS WELL-HEALED SURGICAL SCAR L/S AXIS. DIAGNOSTIC TESTS REVIEWEDMRI L/S SPINE . 06/2019. ASSESSMENTS SPONDYLOSIS WITHOUT MYELOPATHY OR RADICULOPATHY, LUMBAR REGION - M47.816 (PRIMARY) OTHER CHRONIC PAIN - G89.29 POST LAMINECTOMY SYNDROME - M96.1 TREATMENT SPONDYLOSIS WITHOUT MYELOPATHY OR RADICULOPATHY, LUMBAR REGION NOTES: BILATERAL DIAGNOSTIC LUMBAR FACET BLOCK L4-5,L5-S1 PRINTED AND REVIEWED PRE PROCEDURE WITH PATIENT EZEKIEL CORLEY. OTHER CHRONIC PAIN PAIN PROCEDURE LOGDATE OF PROCEDURE1PROCEDURE:BILATERAL DIAGNOSTIC LUMBAR FACET BLOCK #1 L4-L5,L5-A4BHMMWF OF PRE SEDATE0/0RESULT:GREATER THAN 80% REDUCTION IN PAIN FOR SEVERAL HOURS POSTPROCEDURESLUIS SANTOS 07/28/2020 5:14:14 PM > ANDREA, CAN YOU PLEASE PUT THE PROCEDURE RESULTS IN THIS PROCEDURE LOG? THANKS. PROCEDURE CODES FA211 ESTABILISHED PATIENT [facility] FACILITY CHARGE DISPOSITION & COMMUNICATION FOLLOW UP POST PROCEDURE (REASON: BILATERAL DIAGNOSTIC LUMBAR FACET BLOCK L4-5,L5-S1) ELECTRONICALLY SIGNED BY CARIDAD HENLEY ON 07/30/2020 AT 12:37 PM EDT DISCLAIMER : THIS IS A VISIT SUMMARY EXTRACTED FROM THE [employer] CHART. IT IS NOT A COPY OF THE [employer] PROGRESS NOTE. ZINA
--- NOTE | 2020-07-31 06:41 | ECWPNPC ---
PATIENT NAME: LOGAN CRAVEN : 1960 GENDER: FEMALE VISIT DATE: 07/27/2020 DISCHARGE DATE: 07/27/20 1058 VISIT LOCKED DATE TIME: PHYSICIAN: ANDREA ELIAS PHYSICIAN PAGER NO: ACTIVE RESOURCE: ANDREA ELIAS REASON FOR APPOINTMENT 1. POST BILATERAL DIAGNOSTIC LUMBAR FACET BLOCK #1 L4-L5, L5-S1 HISTORY OF PRESENT ILLNESS GENERAL: HERE FOR POST PROCEDURE FOLLOW-UP. HAD BILATERAL L4-5, L5-S1 LUMBAR DIAGNOSTIC FACET BLOCK ON 07/12/2020. HOURLY DIARY IS REVIEWED AND SHOWS GREATER THAN 80% REDUCTION IN PAIN FOR SEVERAL DAYS. PAIN IS BEGINNING TO RETURN TO BASELINE. DISCUSSED DIAGNOSTIC TESTING #2 AND PROCEEDING WITH RADIOFREQUENCY.-. FALL RISK SCREENING: SCREENING : NO FALLS REPORTED IN THE LAST YEAR. PAIN SCREENING: PATIENT HAS A COMPLAINT OF ACUTE OR CHRONIC PAIN :YES LOCATION OF PAIN:LOW BACK INTENSITY OF PAIN (SCALE OF 1 TO 10):4 WHAT DOES YOUR PAIN FEEL LIKE:CONTINOUS DURATION:CONSTANT PAIN IS INCREASED BY:ACTIVITIES, PROLONGED STANDING, OTHERS WALKING PAIN IS DECREASED BY:OTHERS RESTING AND HEAT AND ICE NURSING NOTE: -. PAIN CENTER INTAKE QUESTIONS: DO YOU HAVE A HISTORY OF MRSA? :NO DO YOU TAKE A BLOOD THINNERS? :YES ELMIRON DO YOU HAVE ANY BLEEDING DISORDERS? :NO ANY NEW NUMBNESS OR WEAKNESS IN YOUR LEGS OR ARMS? :NO ANY PACEMAKER,DEFIBRILLATOR, OR DORSAL COLUMN STIMULATOR? :NO DO YOU HAVE ANY RASHES OR OPEN SORES? :NO ARE YOU ALLERGIC TO IV DYE? :NO ARE YOU DIABETIC? :NO ANY NEW PROBLEMS WITH YOUR MEDICATIONS? :NO HAVE YOU RECEIVED A VACCINE IN THE PAST 30 DAYS? :NO DO YOU PLAN TO RECEIVE A VACCINE IN THE NEXT 21 DAYS? :NO DO YOU NEED ANY PRESCRIPTION? :NO DO YOU TAKE ANY IMMUNOSUPPRESSIVE MEDICATIONS? :YES LEFLUNOMIDE AND ENBREL SURECLICK IS THERE A CHANCE YOU COULD BE ? :NO ARE YOU BREAST FEEDING? :NO CURRENT MEDICATIONS TAKING VITAMIN D 2000 UNIT CAPSULE 1 TABLET ORALLY ONCE A DAY TAKING CANE . MISCELLANEOUS QUAD CANE _ QD R27 TAKING CALCIUM 600 + D 600-400 MG-UNIT TABLET 1 TABLET ORALLY ONCE A DAY TAKING ELMIRON 100 MG CAPSULE 1 CAPSULE ON AN EMPTY STOMACH 1 TABLET THREE A DAY TAKING LEFLUNOMIDE 20 MG TABLET 1 TABLET ORALLY ONCE A DAY TAKING ENBREL SURECLICK 50 MG/ML SOLUTION AUTO-INJECTOR DIRECTED SUBCUTANEOUS ONCE A WEEK TAKING CYANOCOBALAMIN 500 MCG TABLET 1 TABLET ORALLY 1 EVERY 5 DAYS TAKING CARAFATE 1 GM TABLET 1 TABLET ON AN EMPTY STOMACH ORALLY AC TID TAKING ATORVASTATIN CALCIUM 20 MG TABLET 1 TABLET ORALLY ONCE A DAY TAKING FISH OIL 1000 MG CAPSULE 1 CAPSULE ORALLY ONCE A DAY TAKING ESCITALOPRAM OXALATE 10 MG TABLET 15MG 1.5 TABLET ORALLY ONCE A DAY TAKING ESOMEPRAZOLE MAGNESIUM 40 MG CAPSULE DELAYED RELEASE 1 CAPSULE ORALLY AC BID TAKING CARISOPRODOL 350 MG TABLET 1 TABLET NEEDED ORALLY TID PRN, MDD 3 TAKING HYDROCODONE-ACETAMINOPHEN 5-325 MG TABLET 1 TABLET NEEDED ORALLY TID PRN MDD = 3 MEDICATION LIST REVIEWED AND RECONCILED WITH THE PATIENT PAST MEDICAL HISTORY RA/OSTEOARTHRITIS/FIBROMYALGIA NICOTINE ADDICTION-08/2011 FEV1 2.5L (101%)/RATIO 97%-1 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 GERD/DYSPEPSIA-06/2016 NORMAL EGD/COLON/SB CAPSULE-R HYPERLIPIDEMIA 2B ENDOMETRIOSIS 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 SPENCER 2008 FOLLOWS WITH WOMAN TO WOMAN HISTORY OF TUBULAR ADENOMA-NORMAL COLONOSCOPY APRIL 2009 NORMAL COLONOSCOPY C - RANDOM BIOPSIES-[place] COLONOSCOPY 07/18/16 REINDL CERVICAL DJD STATUS POST MULTILEVEL FUSION-01/2010 MRI STABLE ACDF C BASELINE DJD ATROPHIC VAGINITIS OSTEOPENIA VITAMIN D DEFICIENCY CHRONIC SINUSITIS / NONE LATELY RECURRENT UTI / YEARS AGO CHRONIC DIARRHEA STATUS POST LAPAROSCOPIC CHOLECYSTECTOMY JULY 2009//[id number] CHRONIC DRY EYES MEMORY LOSS 2 INSOMNIA, WORK STRESS-12/2011 NORMAL MRI BRAIN S AND NORMAL WORKUP LUMBAR DJD-L2/3 BULGE C L IF HNP C L L2 COMPRESSION, L3/4 SEVERE CCS C B L3 COMPRESSION BY 03/2017 MRI LONG-TERM DISABILITY-TAKEN OOW 08/05/13 [address] BARAJAS, 01/2014 FILLED OUT LTD PAPERWORK FOR GUARDIAN-PATIENT DEFERRED WCE INSOMNIA, COOMORBID ANXIETY OCULAR SURFACE DISEASE ALLERGIES METHOTREXATE (ANTI-RHEUMATIC): MIGRANES - SIDE EFFECTS CYMBALTA: RACING PLUSE, SHAKES - ALLERGY WELLBUTRIN: PALPITATIONS, SEVERE - ALLERGY SULFA (FOR ALLERGY USE ONLY): NAUSEA/VOMITING - ALLERGY LYRICA: PALPITATIONS - ALLERGY CELEXA: PALPITATIONS - SIDE EFFECTS ORENCIA: ANAPHYLAXIS - ALLERGY TOPICAL ALOE VERA: SEVERE ITCHING CANNOT TOLERATE ASA BASED PRODUCTS/ NSAIDS: HX STOMACH BLEED - CONTRAINDICATION SURGICAL HISTORY LAPAROSCOPY X2 CHRISTINE BTL 1982 TVH [address] SPENCER 2008 VAGINAL CUFF BX. IRMA CHANDLER NP 03/07 CHOLECYSTECTOMY 06/09 ACDF-C4-T1 10/06 R BREAST [id number]-[id number]-RHUPCI 09/2010 ABOVE L CTR- FISH 10/27/14 L4-L5 FUSION/LAMINECTOMY 09/2013 NORMAL EGD/COLON/SB CAPSULE-R 06/2016 FUSION C5 C6 1999 HYSTERECTOMY 1988 BENIGN MOLE REMOVAL 2018 SOCIAL HISTORY GENERAL: TOBACCO USE ARE YOU A:CURRENT SMOKER ARE YOU INTERESTED IN QUITTING?THINKING ABOUT QUITTING COUNSELED THE PATIENT ON SMOKING CESSATION, EDUCATION [id number]/30/2021 HOW MANY CIGARETTES A DAY DO YOU SMOKE?5 OR LESS HOW SOON AFTER YOU WAKE UP DO YOU SMOKE YOUR FIRST CIGARETTE?AFTER 60 MIN HOW OFTEN DO YOU SMOKE CIGARETTES?EVERY DAY PATIENT COUNSELED ON THE DANGERS OF TOBACCO USE AND URGED TO QUIT:05/26/2020 VAPORNO E-CIGARETTENO LATEX QUESTIONNAIRE LATEX ALLERGY : HAVE YOU EVER DEVELOPED ANY TYPE OF REACTION AFTER HANDLING LATEX PRODUCTS SUCH RUBBER GLOVES, CONDOMS, DIAPHRAGMS, BALLOONS, SOCKS, OR UNDERWEAR?NO LATEX ALLERGY : HAVE YOU EVER DEVELOPED ANY TYPE OF REACTION DURING OR AFTER DENTAL APPOINTMENT, VAGINAL/RECTAL EXAMINATION, SURGICAL PROCEDURE, OR ANY OTHER EXPOSURE?NO LATEX RISK : HAVE YOU EVER HAD ANY DIFFICULTY BREATHING OR HIVES AFTER EATING OR HANDLING ANY FRUITS, OR VEGETABLES; SUCH KIWI, BANANAS, STONE FRUITS, OR CHESTNUTSNO LATEX RISK : DO YOU HAVE A PREVIOUS PERSONAL HISTORY OF MORE THAN NINE SURGERIES, SPINA BIFIDA, OR REPEATED CATHERIZATIONS? YES LATEX RISK : ARE YOU FREQUENTLY EXPOSED TO LATEX PRODUCTS IN YOUR OCCUPATION?NO DATE ASKED : 07/27/2020 ALCOHOL USE: NO, ONCE EVERY 4 MONTH. ALCOHOL SCREENING DID YOU HAVE A DRINK CONTAINING ALCOHOL IN THE PAST YEAR?YES HOW OFTEN DID YOU HAVE A DRINK CONTAINING ALCOHOL IN THE PAST YEAR?MONTHLY OR LESS (1 POINT) POINTS1 INTERPRETATIONNEGATIVE RECREATIONAL DRUG USE DRUG USE?NO CAFFEINE CAFFEINE USE?YES 2-3 DAILY SEXUAL HX HAD SEX IN THE LAST 12 MONTHS (VAGINAL, ORAL, OR ANAL)?NO HAVE YOU EVER HAD AN STD?NO HIV / HEP-C SCREENING HIV TEST OFFERED TO PATIENT:YES DATE OFFERED:06/28/2017 TEST ACCEPTED:NO HEP-C TEST OFFERED TO PATIENT:YES DATE OFFERED:06/28/2017 REASON:PATIENT DECLINED TEST ACCEPTED:NO REASON:PATIENT DECLINED LUTHERAN [id number] NONE NO SHINTO BELIEFS THAT WOULD IMPACT HEALTH CARE. LANGUAGE LANGUAGES SPOKEN:SERBIAN EDUCATION LEVEL OF EDUCATION:HIGH SCHOOL GED LEARNING BARRIERS / SPECIAL NEEDS CHANGE FROM LAST VISIT?NO BARRIERS TO LEARNING?NO HEARING IMPAIRED?NO TINITUS VISION IMPAIRED?YES :CORRECTIVE LENSES COGNITIVELY IMPAIRED?NO READINESS TO LEARN?YES LEARNING PREFERENCES?NO LEARNING CAPABILITIES PRESENT?YES EMOTIONAL BARRIERS?NO SPECIAL DEVICES?YES :CANE NEEDED CRM SOLUTION ARCHITECT NEEDED?NO DOMESTIC VIOLENCE DO YOU FEEL SAFE IN YOUR ENVIRONMENT?YES OCCUPATION: DISABLED. DIET: AVOIDS GREASY, FRIED FOODS, DAIRY.TRIES TO EAT SMALLER PORTIONS. EXERCISE: LOWER BACK EXERCISES, WALKS TOLERATED. MARITAL STATUS: .. OTHERS AT HOME: DAUGHTER. - PFS REFERRAL NEEDED?NO CLERGY REFERRAL NEEDED?NO PUBLIC HEALTH REFERRAL NEEDED?NO HAS THE PATIENT BEEN EDUCATED REGARDING HIS/HER PLAN OF CARE?YES HAS THE PATIENT BEEN EDUCATED REGARDING PAIN, THE RISK FOR PAIN, THE IMPORTANCE OF EFFECTIVE PAIN MANAGEMENT, AND THE PAIN ASSESSMENT PROCESS?YES ADVANCE DIRECTIVE ADVANCE DIRECTIVE DISCUSSED WITH PATIENT:YES PT STATES SHE HAS A HEALTH CARE PROXY-RAH ROSARIO [phone] HOSPITALIZATION/MAJOR DIAGNOSTIC PROCEDURE SURGICAL RELATED REVIEW OF SYSTEMS CONSTITUTIONAL: ANY RECENT FEVER NO . CHILLS NO . WEIGHT CHANGE OF UNKNOWN REASONS NO . GASTROENTEROLOGY: NEW UNEXPLAINABLE CHANGES IN BOWEL CONTROL NO . CONSTIPATION NO . GENITOURINARY: ANY NEW CHANGE IN BLADDER CONTROL? NO . NEUROLOGY: NEW ONSET DIZZINESS OR NEUROLOGICAL CHANGES NOT MENTIONED NO . NEW NUMBNESS OR PAIN PATTERNS NOT MENTIONED AND PERTINENT TO TODAY'S VISIT NO . CARDIOLOGY: NEW CHEST PRESSURE NO . PATIENT DENIES NO . RESPIRATORY: UNEXPLAINABLE COUGH NO . NEW SHORTNESS OF BREATH NO . VITAL SIGNS WT 125 LBS, HT 64 IN, BMI 21.45 INDEX, BP 126/55 MM HG, HR 85 /MIN, RR 18 /MIN, TEMP 98.3 F, OXYGEN SAT % 96%, SAFE IN ENV? (Y/N) YEST.CARYN CORLEY. EXAMINATION GENERAL EXAMINATION: GENERAL AWAKE,ALERT ,PLEASANT . PSYCH AFFECT NORMAL . LUNGS: LUNG LINDSEY ARE CLEAR TO AUSCULTATION BILATERALLY. GOOD MOVEMENT OF AIR . HEART: S1, S2 IN A REGULAR RATE AND RHYTHM. NO SIGNIFICANT MURMURS, RUBS OR GALLOPS NOTED . MUSCULOSKELETAL: MUSCLE STRENGTH TESTING 5/5 BILATERAL LOWER EXTREMITIES. LUMBAR: PALPATION: + FOR PAIN OVER L/S SPINE. + FOR PAIN OVER L/S PARASPINALS WELL-HEALED SURGICAL SCAR L/S AXIS. DIAGNOSTIC TESTS REVIEWEDMRI L/S SPINE . 06/2019. ASSESSMENTS SPONDYLOSIS WITHOUT MYELOPATHY OR RADICULOPATHY, LUMBAR REGION - M47.816 (PRIMARY) OTHER CHRONIC PAIN - G89.29 POST LAMINECTOMY SYNDROME - M96.1 TREATMENT SPONDYLOSIS WITHOUT MYELOPATHY OR RADICULOPATHY, LUMBAR REGION NOTES: BILATERAL DIAGNOSTIC LUMBAR FACET BLOCK L4-5,L5-S1 PRINTED AND REVIEWED PRE PROCEDURE WITH PATIENT EZEKIEL CORLEY. OTHER CHRONIC PAIN PAIN PROCEDURE LOGDATE OF PROCEDURE1PROCEDURE:BILATERAL DIAGNOSTIC LUMBAR FACET BLOCK #1 L4-L5,L5-R4IJMARP OF PRE SEDATE0/0RESULT:GREATER THAN 80% REDUCTION IN PAIN FOR SEVERAL HOURS POSTPROCEDURESLUIS SANTOS 07/28/2020 5:14:14 PM > ANDREA, CAN YOU PLEASE PUT THE PROCEDURE RESULTS IN THIS PROCEDURE LOG? THANKS. PROCEDURE CODES FA211 ESTABILISHED PATIENT [facility] FACILITY CHARGE DISPOSITION & COMMUNICATION FOLLOW UP POST PROCEDURE (REASON: BILATERAL DIAGNOSTIC LUMBAR FACET BLOCK L4-5,L5-S1) ELECTRONICALLY SIGNED BY CARIDAD HENLEY ON 07/30/2020 AT 12:37 PM EDT DISCLAIMER : THIS IS A VISIT SUMMARY EXTRACTED FROM THE [employer] CHART. IT IS NOT A COPY OF THE [employer] PROGRESS NOTE. ZINA
--- NOTE | 2020-07-31 06:43 | ECWPNPC ---
PATIENT NAME: LOGAN CRAVEN : 1960 GENDER: FEMALE VISIT DATE: 07/27/2020 DISCHARGE DATE: 07/27/20 1058 VISIT LOCKED DATE TIME: PHYSICIAN: ANDREA ELIAS PHYSICIAN PAGER NO: ACTIVE RESOURCE: ANDREA ELIAS REASON FOR APPOINTMENT 1. POST BILATERAL DIAGNOSTIC LUMBAR FACET BLOCK #1 L4-L5, L5-S1 HISTORY OF PRESENT ILLNESS GENERAL: HERE FOR POST PROCEDURE FOLLOW-UP. HAD BILATERAL L4-5, L5-S1 LUMBAR DIAGNOSTIC FACET BLOCK ON 07/12/2020. HOURLY DIARY IS REVIEWED AND SHOWS GREATER THAN 80% REDUCTION IN PAIN FOR SEVERAL DAYS. PAIN IS BEGINNING TO RETURN TO BASELINE. DISCUSSED DIAGNOSTIC TESTING #2 AND PROCEEDING WITH RADIOFREQUENCY.-. FALL RISK SCREENING: SCREENING : NO FALLS REPORTED IN THE LAST YEAR. PAIN SCREENING: PATIENT HAS A COMPLAINT OF ACUTE OR CHRONIC PAIN :YES LOCATION OF PAIN:LOW BACK INTENSITY OF PAIN (SCALE OF 1 TO 10):4 WHAT DOES YOUR PAIN FEEL LIKE:CONTINOUS DURATION:CONSTANT PAIN IS INCREASED BY:ACTIVITIES, PROLONGED STANDING, OTHERS WALKING PAIN IS DECREASED BY:OTHERS RESTING AND HEAT AND ICE NURSING NOTE: -. PAIN CENTER INTAKE QUESTIONS: DO YOU HAVE A HISTORY OF MRSA? :NO DO YOU TAKE A BLOOD THINNERS? :YES ELMIRON DO YOU HAVE ANY BLEEDING DISORDERS? :NO ANY NEW NUMBNESS OR WEAKNESS IN YOUR LEGS OR ARMS? :NO ANY PACEMAKER,DEFIBRILLATOR, OR DORSAL COLUMN STIMULATOR? :NO DO YOU HAVE ANY RASHES OR OPEN SORES? :NO ARE YOU ALLERGIC TO IV DYE? :NO ARE YOU DIABETIC? :NO ANY NEW PROBLEMS WITH YOUR MEDICATIONS? :NO HAVE YOU RECEIVED A VACCINE IN THE PAST 30 DAYS? :NO DO YOU PLAN TO RECEIVE A VACCINE IN THE NEXT 21 DAYS? :NO DO YOU NEED ANY PRESCRIPTION? :NO DO YOU TAKE ANY IMMUNOSUPPRESSIVE MEDICATIONS? :YES LEFLUNOMIDE AND ENBREL SURECLICK IS THERE A CHANCE YOU COULD BE ? :NO ARE YOU BREAST FEEDING? :NO CURRENT MEDICATIONS TAKING VITAMIN D 2000 UNIT CAPSULE 1 TABLET ORALLY ONCE A DAY TAKING CANE . MISCELLANEOUS QUAD CANE _ QD R27 TAKING CALCIUM 600 + D 600-400 MG-UNIT TABLET 1 TABLET ORALLY ONCE A DAY TAKING ELMIRON 100 MG CAPSULE 1 CAPSULE ON AN EMPTY STOMACH 1 TABLET THREE A DAY TAKING LEFLUNOMIDE 20 MG TABLET 1 TABLET ORALLY ONCE A DAY TAKING ENBREL SURECLICK 50 MG/ML SOLUTION AUTO-INJECTOR DIRECTED SUBCUTANEOUS ONCE A WEEK TAKING CYANOCOBALAMIN 500 MCG TABLET 1 TABLET ORALLY 1 EVERY 5 DAYS TAKING CARAFATE 1 GM TABLET 1 TABLET ON AN EMPTY STOMACH ORALLY AC TID TAKING ATORVASTATIN CALCIUM 20 MG TABLET 1 TABLET ORALLY ONCE A DAY TAKING FISH OIL 1000 MG CAPSULE 1 CAPSULE ORALLY ONCE A DAY TAKING ESCITALOPRAM OXALATE 10 MG TABLET 15MG 1.5 TABLET ORALLY ONCE A DAY TAKING ESOMEPRAZOLE MAGNESIUM 40 MG CAPSULE DELAYED RELEASE 1 CAPSULE ORALLY AC BID TAKING CARISOPRODOL 350 MG TABLET 1 TABLET NEEDED ORALLY TID PRN, MDD 3 TAKING HYDROCODONE-ACETAMINOPHEN 5-325 MG TABLET 1 TABLET NEEDED ORALLY TID PRN MDD = 3 MEDICATION LIST REVIEWED AND RECONCILED WITH THE PATIENT PAST MEDICAL HISTORY RA/OSTEOARTHRITIS/FIBROMYALGIA NICOTINE ADDICTION-08/2011 FEV1 2.5L (101%)/RATIO 97%-1 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 GERD/DYSPEPSIA-06/2016 NORMAL EGD/COLON/SB CAPSULE-R HYPERLIPIDEMIA 2B ENDOMETRIOSIS 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 SPENCER 2008 FOLLOWS WITH WOMAN TO WOMAN HISTORY OF TUBULAR ADENOMA-NORMAL COLONOSCOPY APRIL 2009 NORMAL COLONOSCOPY C - RANDOM BIOPSIES-[place] COLONOSCOPY 07/18/16 REINDL CERVICAL DJD STATUS POST MULTILEVEL FUSION-01/2010 MRI STABLE ACDF C BASELINE DJD ATROPHIC VAGINITIS OSTEOPENIA VITAMIN D DEFICIENCY CHRONIC SINUSITIS / NONE LATELY RECURRENT UTI / YEARS AGO CHRONIC DIARRHEA STATUS POST LAPAROSCOPIC CHOLECYSTECTOMY JULY 2009//[id number] CHRONIC DRY EYES MEMORY LOSS 2 INSOMNIA, WORK STRESS-12/2011 NORMAL MRI BRAIN S AND NORMAL WORKUP LUMBAR DJD-L2/3 BULGE C L IF HNP C L L2 COMPRESSION, L3/4 SEVERE CCS C B L3 COMPRESSION BY 03/2017 MRI LONG-TERM DISABILITY-TAKEN OOW 08/05/[address] BARAJAS, 01/2014 FILLED OUT LTD PAPERWORK FOR GUARDIAN-PATIENT DEFERRED WCE INSOMNIA, COOMORBID ANXIETY OCULAR SURFACE DISEASE ALLERGIES METHOTREXATE (ANTI-RHEUMATIC): MIGRANES - SIDE EFFECTS CYMBALTA: RACING PLUSE, SHAKES - ALLERGY WELLBUTRIN: PALPITATIONS, SEVERE - ALLERGY SULFA (FOR ALLERGY USE ONLY): NAUSEA/VOMITING - ALLERGY LYRICA: PALPITATIONS - ALLERGY CELEXA: PALPITATIONS - SIDE EFFECTS ORENCIA: ANAPHYLAXIS - ALLERGY TOPICAL ALOE VERA: SEVERE ITCHING CANNOT TOLERATE ASA BASED PRODUCTS/ NSAIDS: HX STOMACH BLEED - CONTRAINDICATION SURGICAL HISTORY LAPAROSCOPY X2 CHRISTINE BTL 1982 TVH [address] SPENCER 2008 VAGINAL CUFF BX. IRMA CHANDLER NP 03/07 CHOLECYSTECTOMY 06/09 ACDF-C4-T1 10/06 R BREAST [id number]-[id number] 09/2010 ABOVE L CTR- FISH 10/27/14 L4-L5 FUSION/LAMINECTOMY 09/2013 NORMAL EGD/COLON/SB CAPSULE-R 06/2016 FUSION C5 C6 1999 HYSTERECTOMY 1988 BENIGN MOLE REMOVAL 2018 SOCIAL HISTORY GENERAL: TOBACCO USE ARE YOU A:CURRENT SMOKER ARE YOU INTERESTED IN QUITTING?THINKING ABOUT QUITTING COUNSELED THE PATIENT ON SMOKING CESSATION, EDUCATION [id number]/30/2021 HOW MANY CIGARETTES A DAY DO YOU SMOKE?5 OR LESS HOW SOON AFTER YOU WAKE UP DO YOU SMOKE YOUR FIRST CIGARETTE?AFTER 60 MIN HOW OFTEN DO YOU SMOKE CIGARETTES?EVERY DAY PATIENT COUNSELED ON THE DANGERS OF TOBACCO USE AND URGED TO QUIT:05/26/2020 VAPORNO E-CIGARETTENO LATEX QUESTIONNAIRE LATEX ALLERGY : HAVE YOU EVER DEVELOPED ANY TYPE OF REACTION AFTER HANDLING LATEX PRODUCTS SUCH RUBBER GLOVES, CONDOMS, DIAPHRAGMS, BALLOONS, SOCKS, OR UNDERWEAR?NO LATEX ALLERGY : HAVE YOU EVER DEVELOPED ANY TYPE OF REACTION DURING OR AFTER DENTAL APPOINTMENT, VAGINAL/RECTAL EXAMINATION, SURGICAL PROCEDURE, OR ANY OTHER EXPOSURE?NO LATEX RISK : HAVE YOU EVER HAD ANY DIFFICULTY BREATHING OR HIVES AFTER EATING OR HANDLING ANY FRUITS, OR VEGETABLES; SUCH KIWI, BANANAS, STONE FRUITS, OR CHESTNUTSNO LATEX RISK : DO YOU HAVE A PREVIOUS PERSONAL HISTORY OF MORE THAN NINE SURGERIES, SPINA BIFIDA, OR REPEATED CATHERIZATIONS? YES LATEX RISK : ARE YOU FREQUENTLY EXPOSED TO LATEX PRODUCTS IN YOUR OCCUPATION?NO DATE ASKED : 07/27/2020 ALCOHOL USE: NO, ONCE EVERY 4 MONTH. ALCOHOL SCREENING DID YOU HAVE A DRINK CONTAINING ALCOHOL IN THE PAST YEAR?YES HOW OFTEN DID YOU HAVE A DRINK CONTAINING ALCOHOL IN THE PAST YEAR?MONTHLY OR LESS (1 POINT) POINTS1 INTERPRETATIONNEGATIVE RECREATIONAL DRUG USE DRUG USE?NO CAFFEINE CAFFEINE USE?YES 2-3 DAILY SEXUAL HX HAD SEX IN THE LAST 12 MONTHS (VAGINAL, ORAL, OR ANAL)?NO HAVE YOU EVER HAD AN STD?NO HIV / HEP-C SCREENING HIV TEST OFFERED TO PATIENT:YES DATE OFFERED:06/28/2017 TEST ACCEPTED:NO HEP-C TEST OFFERED TO PATIENT:YES DATE OFFERED:06/28/2017 REASON:PATIENT DECLINED TEST ACCEPTED:NO REASON:PATIENT DECLINED SCIENTOLOGIST [id number] NONE NO CHRISTIANITY BELIEFS THAT WOULD IMPACT HEALTH CARE. LANGUAGE LANGUAGES SPOKEN:PERSIAN EDUCATION LEVEL OF EDUCATION:HIGH SCHOOL GED LEARNING BARRIERS / SPECIAL NEEDS CHANGE FROM LAST VISIT?NO BARRIERS TO LEARNING?NO HEARING IMPAIRED?NO TINITUS VISION IMPAIRED?YES :CORRECTIVE LENSES COGNITIVELY IMPAIRED?NO READINESS TO LEARN?YES LEARNING PREFERENCES?NO LEARNING CAPABILITIES PRESENT?YES EMOTIONAL BARRIERS?NO SPECIAL DEVICES?YES :CANE NEEDED CHIEF UNIT FORESTER NEEDED?NO DOMESTIC VIOLENCE DO YOU FEEL SAFE IN YOUR ENVIRONMENT?YES OCCUPATION: DISABLED. DIET: AVOIDS GREASY, FRIED FOODS, DAIRY.TRIES TO EAT SMALLER PORTIONS. EXERCISE: LOWER BACK EXERCISES, WALKS TOLERATED. MARITAL STATUS: .. OTHERS AT HOME: DAUGHTER. - PFS REFERRAL NEEDED?NO CLERGY REFERRAL NEEDED?NO PUBLIC HEALTH REFERRAL NEEDED?NO HAS THE PATIENT BEEN EDUCATED REGARDING HIS/HER PLAN OF CARE?YES HAS THE PATIENT BEEN EDUCATED REGARDING PAIN, THE RISK FOR PAIN, THE IMPORTANCE OF EFFECTIVE PAIN MANAGEMENT, AND THE PAIN ASSESSMENT PROCESS?YES ADVANCE DIRECTIVE ADVANCE DIRECTIVE DISCUSSED WITH PATIENT:YES PT STATES SHE HAS A HEALTH CARE PROXY-RAH ROSARIO [phone] HOSPITALIZATION/MAJOR DIAGNOSTIC PROCEDURE SURGICAL RELATED REVIEW OF SYSTEMS CONSTITUTIONAL: ANY RECENT FEVER NO . CHILLS NO . WEIGHT CHANGE OF UNKNOWN REASONS NO . GASTROENTEROLOGY: NEW UNEXPLAINABLE CHANGES IN BOWEL CONTROL NO . CONSTIPATION NO . GENITOURINARY: ANY NEW CHANGE IN BLADDER CONTROL? NO . NEUROLOGY: NEW ONSET DIZZINESS OR NEUROLOGICAL CHANGES NOT MENTIONED NO . NEW NUMBNESS OR PAIN PATTERNS NOT MENTIONED AND PERTINENT TO TODAY'S VISIT NO . CARDIOLOGY: NEW CHEST PRESSURE NO . PATIENT DENIES NO . RESPIRATORY: UNEXPLAINABLE COUGH NO . NEW SHORTNESS OF BREATH NO . VITAL SIGNS WT 125 LBS, HT 64 IN, BMI 21.45 INDEX, BP 126/55 MM HG, HR 85 /MIN, RR 18 /MIN, TEMP 98.3 F, OXYGEN SAT % 96%, SAFE IN ENV? (Y/N) YEST.CARYN CORLEY. EXAMINATION GENERAL EXAMINATION: GENERAL AWAKE,ALERT ,PLEASANT . PSYCH AFFECT NORMAL . LUNGS: LUNG LINDSEY ARE CLEAR TO AUSCULTATION BILATERALLY. GOOD MOVEMENT OF AIR . HEART: S1, S2 IN A REGULAR RATE AND RHYTHM. NO SIGNIFICANT MURMURS, RUBS OR GALLOPS NOTED . MUSCULOSKELETAL: MUSCLE STRENGTH TESTING 5/5 BILATERAL LOWER EXTREMITIES. LUMBAR: PALPATION: + FOR PAIN OVER L/S SPINE. + FOR PAIN OVER L/S PARASPINALS WELL-HEALED SURGICAL SCAR L/S AXIS. DIAGNOSTIC TESTS REVIEWEDMRI L/S SPINE . 06/2019. ASSESSMENTS SPONDYLOSIS WITHOUT MYELOPATHY OR RADICULOPATHY, LUMBAR REGION - M47.816 (PRIMARY) OTHER CHRONIC PAIN - G89.29 POST LAMINECTOMY SYNDROME - M96.1 TREATMENT SPONDYLOSIS WITHOUT MYELOPATHY OR RADICULOPATHY, LUMBAR REGION NOTES: BILATERAL DIAGNOSTIC LUMBAR FACET BLOCK L4-5,L5-S1 PRINTED AND REVIEWED PRE PROCEDURE WITH PATIENT EZEKIEL CORLEY. OTHER CHRONIC PAIN PAIN PROCEDURE LOGDATE OF PROCEDURE1PROCEDURE:BILATERAL DIAGNOSTIC LUMBAR FACET BLOCK #1 L4-L5,L5-E4WNPFTI OF PRE SEDATE0/0RESULT:GREATER THAN 80% REDUCTION IN PAIN FOR SEVERAL HOURS POSTPROCEDURESLUIS SANTOS 07/28/2020 5:14:14 PM > ANDREA, CAN YOU PLEASE PUT THE PROCEDURE RESULTS IN THIS PROCEDURE LOG? THANKS. PROCEDURE CODES FA211 ESTABILISHED PATIENT [facility] FACILITY CHARGE DISPOSITION & COMMUNICATION FOLLOW UP POST PROCEDURE (REASON: BILATERAL DIAGNOSTIC LUMBAR FACET BLOCK L4-5,L5-S1) ELECTRONICALLY SIGNED BY CARIDAD HENLEY ON 07/30/2020 AT 12:37 PM EDT DISCLAIMER : THIS IS A VISIT SUMMARY EXTRACTED FROM THE [employer] CHART. IT IS NOT A COPY OF THE [employer] PROGRESS NOTE. ZINA
--- NOTE | 2020-07-31 06:45 | ECWPNPC ---
PATIENT NAME: LOGAN CRAVEN : 1960 GENDER: FEMALE VISIT DATE: 07/27/2020 DISCHARGE DATE: 07/27/20 1058 VISIT LOCKED DATE TIME: PHYSICIAN: ANDREA ELIAS PHYSICIAN PAGER NO: ACTIVE RESOURCE: ANDREA ELIAS REASON FOR APPOINTMENT 1. POST BILATERAL DIAGNOSTIC LUMBAR FACET BLOCK #1 L4-L5, L5-S1 HISTORY OF PRESENT ILLNESS GENERAL: HERE FOR POST PROCEDURE FOLLOW-UP. HAD BILATERAL L4-5, L5-S1 LUMBAR DIAGNOSTIC FACET BLOCK ON 07/12/2020. HOURLY DIARY IS REVIEWED AND SHOWS GREATER THAN 80% REDUCTION IN PAIN FOR SEVERAL DAYS. PAIN IS BEGINNING TO RETURN TO BASELINE. DISCUSSED DIAGNOSTIC TESTING #2 AND PROCEEDING WITH RADIOFREQUENCY.-. FALL RISK SCREENING: SCREENING : NO FALLS REPORTED IN THE LAST YEAR. PAIN SCREENING: PATIENT HAS A COMPLAINT OF ACUTE OR CHRONIC PAIN :YES LOCATION OF PAIN:LOW BACK INTENSITY OF PAIN (SCALE OF 1 TO 10):4 WHAT DOES YOUR PAIN FEEL LIKE:CONTINOUS DURATION:CONSTANT PAIN IS INCREASED BY:ACTIVITIES, PROLONGED STANDING, OTHERS WALKING PAIN IS DECREASED BY:OTHERS RESTING AND HEAT AND ICE NURSING NOTE: -. PAIN CENTER INTAKE QUESTIONS: DO YOU HAVE A HISTORY OF MRSA? :NO DO YOU TAKE A BLOOD THINNERS? :YES ELMIRON DO YOU HAVE ANY BLEEDING DISORDERS? :NO ANY NEW NUMBNESS OR WEAKNESS IN YOUR LEGS OR ARMS? :NO ANY PACEMAKER,DEFIBRILLATOR, OR DORSAL COLUMN STIMULATOR? :NO DO YOU HAVE ANY RASHES OR OPEN SORES? :NO ARE YOU ALLERGIC TO IV DYE? :NO ARE YOU DIABETIC? :NO ANY NEW PROBLEMS WITH YOUR MEDICATIONS? :NO HAVE YOU RECEIVED A VACCINE IN THE PAST 30 DAYS? :NO DO YOU PLAN TO RECEIVE A VACCINE IN THE NEXT 21 DAYS? :NO DO YOU NEED ANY PRESCRIPTION? :NO DO YOU TAKE ANY IMMUNOSUPPRESSIVE MEDICATIONS? :YES LEFLUNOMIDE AND ENBREL SURECLICK IS THERE A CHANCE YOU COULD BE ? :NO ARE YOU BREAST FEEDING? :NO CURRENT MEDICATIONS TAKING VITAMIN D 2000 UNIT CAPSULE 1 TABLET ORALLY ONCE A DAY TAKING CANE . MISCELLANEOUS QUAD CANE _ QD R27 TAKING CALCIUM 600 + D 600-400 MG-UNIT TABLET 1 TABLET ORALLY ONCE A DAY TAKING ELMIRON 100 MG CAPSULE 1 CAPSULE ON AN EMPTY STOMACH 1 TABLET THREE A DAY TAKING LEFLUNOMIDE 20 MG TABLET 1 TABLET ORALLY ONCE A DAY TAKING ENBREL SURECLICK 50 MG/ML SOLUTION AUTO-INJECTOR DIRECTED SUBCUTANEOUS ONCE A WEEK TAKING CYANOCOBALAMIN 500 MCG TABLET 1 TABLET ORALLY 1 EVERY 5 DAYS TAKING CARAFATE 1 GM TABLET 1 TABLET ON AN EMPTY STOMACH ORALLY AC TID TAKING ATORVASTATIN CALCIUM 20 MG TABLET 1 TABLET ORALLY ONCE A DAY TAKING FISH OIL 1000 MG CAPSULE 1 CAPSULE ORALLY ONCE A DAY TAKING ESCITALOPRAM OXALATE 10 MG TABLET 15MG 1.5 TABLET ORALLY ONCE A DAY TAKING ESOMEPRAZOLE MAGNESIUM 40 MG CAPSULE DELAYED RELEASE 1 CAPSULE ORALLY AC BID TAKING CARISOPRODOL 350 MG TABLET 1 TABLET NEEDED ORALLY TID PRN, MDD 3 TAKING HYDROCODONE-ACETAMINOPHEN 5-325 MG TABLET 1 TABLET NEEDED ORALLY TID PRN MDD = 3 MEDICATION LIST REVIEWED AND RECONCILED WITH THE PATIENT PAST MEDICAL HISTORY RA/OSTEOARTHRITIS/FIBROMYALGIA NICOTINE ADDICTION-08/2011 FEV1 2.5L (101%)/RATIO 97%-1 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 GERD/DYSPEPSIA-06/2016 NORMAL EGD/COLON/SB CAPSULE-R HYPERLIPIDEMIA 2B ENDOMETRIOSIS 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 SPENCER 2008 FOLLOWS WITH WOMAN TO WOMAN HISTORY OF TUBULAR ADENOMA-NORMAL COLONOSCOPY APRIL 2009 NORMAL COLONOSCOPY C - RANDOM BIOPSIES-[place] COLONOSCOPY 07/18/16 REINDL CERVICAL DJD STATUS POST MULTILEVEL FUSION-01/2010 MRI STABLE ACDF C BASELINE DJD ATROPHIC VAGINITIS OSTEOPENIA VITAMIN D DEFICIENCY CHRONIC SINUSITIS / NONE LATELY RECURRENT UTI / YEARS AGO CHRONIC DIARRHEA STATUS POST LAPAROSCOPIC CHOLECYSTECTOMY JULY 2009//[id number] CHRONIC DRY EYES MEMORY LOSS 2 INSOMNIA, WORK STRESS-12/2011 NORMAL MRI BRAIN S AND NORMAL WORKUP LUMBAR DJD-L2/3 BULGE C L IF HNP C L L2 COMPRESSION, L3/4 SEVERE CCS C B L3 COMPRESSION BY 03/2017 MRI LONG-TERM DISABILITY-TAKEN OOW 08/05/13 [address] BARAJAS, 01/2014 FILLED OUT LTD PAPERWORK FOR GUARDIAN-PATIENT DEFERRED WCE INSOMNIA, COOMORBID ANXIETY OCULAR SURFACE DISEASE ALLERGIES METHOTREXATE (ANTI-RHEUMATIC): MIGRANES - SIDE EFFECTS CYMBALTA: RACING PLUSE, SHAKES - ALLERGY WELLBUTRIN: PALPITATIONS, SEVERE - ALLERGY SULFA (FOR ALLERGY USE ONLY): NAUSEA/VOMITING - ALLERGY LYRICA: PALPITATIONS - ALLERGY CELEXA: PALPITATIONS - SIDE EFFECTS ORENCIA: ANAPHYLAXIS - ALLERGY TOPICAL ALOE VERA: SEVERE ITCHING CANNOT TOLERATE ASA BASED PRODUCTS/ NSAIDS: HX STOMACH BLEED - CONTRAINDICATION SURGICAL HISTORY LAPAROSCOPY X2 CHRISTINE BTL 1982 TVH [address] SPENCER 2008 VAGINAL CUFF BX. IRMA CHANDLER NP 03/07 CHOLECYSTECTOMY 06/09 ACDF-C4-T1 10/06 R BREAST [id number] 09/2010 ABOVE L CTR- FISH 10/27/14 L4-L5 FUSION/LAMINECTOMY 09/2013 NORMAL EGD/COLON/SB CAPSULE-R 06/2016 FUSION C5 C6 1999 HYSTERECTOMY 1988 BENIGN MOLE REMOVAL 2018 SOCIAL HISTORY GENERAL: TOBACCO USE ARE YOU A:CURRENT SMOKER ARE YOU INTERESTED IN QUITTING?THINKING ABOUT QUITTING COUNSELED THE PATIENT ON SMOKING CESSATION, EDUCATION [id number]/30/2021 HOW MANY CIGARETTES A DAY DO YOU SMOKE?5 OR LESS HOW SOON AFTER YOU WAKE UP DO YOU SMOKE YOUR FIRST CIGARETTE?AFTER 60 MIN HOW OFTEN DO YOU SMOKE CIGARETTES?EVERY DAY PATIENT COUNSELED ON THE DANGERS OF TOBACCO USE AND URGED TO QUIT:05/26/2020 VAPORNO E-CIGARETTENO LATEX QUESTIONNAIRE LATEX ALLERGY : HAVE YOU EVER DEVELOPED ANY TYPE OF REACTION AFTER HANDLING LATEX PRODUCTS SUCH RUBBER GLOVES, CONDOMS, DIAPHRAGMS, BALLOONS, SOCKS, OR UNDERWEAR?NO LATEX ALLERGY : HAVE YOU EVER DEVELOPED ANY TYPE OF REACTION DURING OR AFTER DENTAL APPOINTMENT, VAGINAL/RECTAL EXAMINATION, SURGICAL PROCEDURE, OR ANY OTHER EXPOSURE?NO LATEX RISK : HAVE YOU EVER HAD ANY DIFFICULTY BREATHING OR HIVES AFTER EATING OR HANDLING ANY FRUITS, OR VEGETABLES; SUCH KIWI, BANANAS, STONE FRUITS, OR CHESTNUTSNO LATEX RISK : DO YOU HAVE A PREVIOUS PERSONAL HISTORY OF MORE THAN NINE SURGERIES, SPINA BIFIDA, OR REPEATED CATHERIZATIONS? YES LATEX RISK : ARE YOU FREQUENTLY EXPOSED TO LATEX PRODUCTS IN YOUR OCCUPATION?NO DATE ASKED : 07/27/2020 ALCOHOL USE: NO, ONCE EVERY 4 MONTH. ALCOHOL SCREENING DID YOU HAVE A DRINK CONTAINING ALCOHOL IN THE PAST YEAR?YES HOW OFTEN DID YOU HAVE A DRINK CONTAINING ALCOHOL IN THE PAST YEAR?MONTHLY OR LESS (1 POINT) POINTS1 INTERPRETATIONNEGATIVE RECREATIONAL DRUG USE DRUG USE?NO CAFFEINE CAFFEINE USE?YES 2-3 DAILY SEXUAL HX HAD SEX IN THE LAST 12 MONTHS (VAGINAL, ORAL, OR ANAL)?NO HAVE YOU EVER HAD AN STD?NO HIV / HEP-C SCREENING HIV TEST OFFERED TO PATIENT:YES DATE OFFERED:06/28/2017 TEST ACCEPTED:NO HEP-C TEST OFFERED TO PATIENT:YES DATE OFFERED:06/28/2017 REASON:PATIENT DECLINED TEST ACCEPTED:NO REASON:PATIENT DECLINED JAINISM [id number] NONE NO AMISH BELIEFS THAT WOULD IMPACT HEALTH CARE. LANGUAGE LANGUAGES SPOKEN:HUNGARIAN EDUCATION LEVEL OF EDUCATION:HIGH SCHOOL GED LEARNING BARRIERS / SPECIAL NEEDS CHANGE FROM LAST VISIT?NO BARRIERS TO LEARNING?NO HEARING IMPAIRED?NO TINITUS VISION IMPAIRED?YES :CORRECTIVE LENSES COGNITIVELY IMPAIRED?NO READINESS TO LEARN?YES LEARNING PREFERENCES?NO LEARNING CAPABILITIES PRESENT?YES EMOTIONAL BARRIERS?NO SPECIAL DEVICES?YES :CANE NEEDED CLASS 1 OWNER OPERATOR NEEDED?NO DOMESTIC VIOLENCE DO YOU FEEL SAFE IN YOUR ENVIRONMENT?YES OCCUPATION: DISABLED. DIET: AVOIDS GREASY, FRIED FOODS, DAIRY.TRIES TO EAT SMALLER PORTIONS. EXERCISE: LOWER BACK EXERCISES, WALKS TOLERATED. MARITAL STATUS: .. OTHERS AT HOME: DAUGHTER. - PFS REFERRAL NEEDED?NO CLERGY REFERRAL NEEDED?NO PUBLIC HEALTH REFERRAL NEEDED?NO HAS THE PATIENT BEEN EDUCATED REGARDING HIS/HER PLAN OF CARE?YES HAS THE PATIENT BEEN EDUCATED REGARDING PAIN, THE RISK FOR PAIN, THE IMPORTANCE OF EFFECTIVE PAIN MANAGEMENT, AND THE PAIN ASSESSMENT PROCESS?YES ADVANCE DIRECTIVE ADVANCE DIRECTIVE DISCUSSED WITH PATIENT:YES PT STATES SHE HAS A HEALTH CARE PROXY-RAH ROSARIO [phone] HOSPITALIZATION/MAJOR DIAGNOSTIC PROCEDURE SURGICAL RELATED REVIEW OF SYSTEMS CONSTITUTIONAL: ANY RECENT FEVER NO . CHILLS NO . WEIGHT CHANGE OF UNKNOWN REASONS NO . GASTROENTEROLOGY: NEW UNEXPLAINABLE CHANGES IN BOWEL CONTROL NO . CONSTIPATION NO . GENITOURINARY: ANY NEW CHANGE IN BLADDER CONTROL? NO . NEUROLOGY: NEW ONSET DIZZINESS OR NEUROLOGICAL CHANGES NOT MENTIONED NO . NEW NUMBNESS OR PAIN PATTERNS NOT MENTIONED AND PERTINENT TO TODAY'S VISIT NO . CARDIOLOGY: NEW CHEST PRESSURE NO . PATIENT DENIES NO . RESPIRATORY: UNEXPLAINABLE COUGH NO . NEW SHORTNESS OF BREATH NO . VITAL SIGNS WT 125 LBS, HT 64 IN, BMI 21.45 INDEX, BP 126/55 MM HG, HR 85 /MIN, RR 18 /MIN, TEMP 98.3 F, OXYGEN SAT % 96%, SAFE IN ENV? (Y/N) YEST.CARYN CORLEY. EXAMINATION GENERAL EXAMINATION: GENERAL AWAKE,ALERT ,PLEASANT . PSYCH AFFECT NORMAL . LUNGS: LUNG LINDSEY ARE CLEAR TO AUSCULTATION BILATERALLY. GOOD MOVEMENT OF AIR . HEART: S1, S2 IN A REGULAR RATE AND RHYTHM. NO SIGNIFICANT MURMURS, RUBS OR GALLOPS NOTED . MUSCULOSKELETAL: MUSCLE STRENGTH TESTING 5/5 BILATERAL LOWER EXTREMITIES. LUMBAR: PALPATION: + FOR PAIN OVER L/S SPINE. + FOR PAIN OVER L/S PARASPINALS WELL-HEALED SURGICAL SCAR L/S AXIS. DIAGNOSTIC TESTS REVIEWEDMRI L/S SPINE . 06/2019. ASSESSMENTS SPONDYLOSIS WITHOUT MYELOPATHY OR RADICULOPATHY, LUMBAR REGION - M47.816 (PRIMARY) OTHER CHRONIC PAIN - G89.29 POST LAMINECTOMY SYNDROME - M96.1 TREATMENT SPONDYLOSIS WITHOUT MYELOPATHY OR RADICULOPATHY, LUMBAR REGION NOTES: BILATERAL DIAGNOSTIC LUMBAR FACET BLOCK L4-5,L5-S1 PRINTED AND REVIEWED PRE PROCEDURE WITH PATIENT EZEKIEL CORLEY. OTHER CHRONIC PAIN PAIN PROCEDURE LOGDATE OF PROCEDURE1PROCEDURE:BILATERAL DIAGNOSTIC LUMBAR FACET BLOCK #1 L4-L5,L5-[id number] OF PRE SEDATE0/0RESULT:GREATER THAN 80% REDUCTION IN PAIN FOR SEVERAL HOURS POSTPROCEDURESLUIS SANTOS 07/28/2020 5:14:14 PM > ANDREA, CAN YOU PLEASE PUT THE PROCEDURE RESULTS IN THIS PROCEDURE LOG? THANKS. PROCEDURE CODES FA211 ESTABILISHED PATIENT [facility] CHARGE DISPOSITION & COMMUNICATION FOLLOW UP POST PROCEDURE (REASON: BILATERAL DIAGNOSTIC LUMBAR FACET BLOCK L4-5,L5-S1) ELECTRONICALLY SIGNED BY CARIDAD HENLEY ON 07/30/2020 AT 12:37 PM EDT DISCLAIMER : THIS IS A VISIT SUMMARY EXTRACTED FROM THE [employer] CHART. IT IS NOT A COPY OF THE [employer] PROGRESS NOTE. ZINA
--- NOTE | 2020-07-31 06:46 | ECWPNPC ---
PATIENT NAME: LOGAN CRAVEN : 1960 GENDER: FEMALE VISIT DATE: 07/27/2020 DISCHARGE DATE: 07/27/20 1058 VISIT LOCKED DATE TIME: PHYSICIAN: ANDREA ELIAS PHYSICIAN PAGER NO: ACTIVE RESOURCE: ANDREA ELIAS REASON FOR APPOINTMENT 1. POST BILATERAL DIAGNOSTIC LUMBAR FACET BLOCK #1 L4-L5, L5-S1 HISTORY OF PRESENT ILLNESS GENERAL: HERE FOR POST PROCEDURE FOLLOW-UP. HAD BILATERAL L4-5, L5-S1 LUMBAR DIAGNOSTIC FACET BLOCK ON 07/12/2020. HOURLY DIARY IS REVIEWED AND SHOWS GREATER THAN 80% REDUCTION IN PAIN FOR SEVERAL DAYS. PAIN IS BEGINNING TO RETURN TO BASELINE. DISCUSSED DIAGNOSTIC TESTING #2 AND PROCEEDING WITH RADIOFREQUENCY.-. FALL RISK SCREENING: SCREENING : NO FALLS REPORTED IN THE LAST YEAR. PAIN SCREENING: PATIENT HAS A COMPLAINT OF ACUTE OR CHRONIC PAIN :YES LOCATION OF PAIN:LOW BACK INTENSITY OF PAIN (SCALE OF 1 TO 10):4 WHAT DOES YOUR PAIN FEEL LIKE:CONTINOUS DURATION:CONSTANT PAIN IS INCREASED BY:ACTIVITIES, PROLONGED STANDING, OTHERS WALKING PAIN IS DECREASED BY:OTHERS RESTING AND HEAT AND ICE NURSING NOTE: -. PAIN CENTER INTAKE QUESTIONS: DO YOU HAVE A HISTORY OF MRSA? :NO DO YOU TAKE A BLOOD THINNERS? :YES ELMIRON DO YOU HAVE ANY BLEEDING DISORDERS? :NO ANY NEW NUMBNESS OR WEAKNESS IN YOUR LEGS OR ARMS? :NO ANY PACEMAKER,DEFIBRILLATOR, OR DORSAL COLUMN STIMULATOR? :NO DO YOU HAVE ANY RASHES OR OPEN SORES? :NO ARE YOU ALLERGIC TO IV DYE? :NO ARE YOU DIABETIC? :NO ANY NEW PROBLEMS WITH YOUR MEDICATIONS? :NO HAVE YOU RECEIVED A VACCINE IN THE PAST 30 DAYS? :NO DO YOU PLAN TO RECEIVE A VACCINE IN THE NEXT 21 DAYS? :NO DO YOU NEED ANY PRESCRIPTION? :NO DO YOU TAKE ANY IMMUNOSUPPRESSIVE MEDICATIONS? :YES LEFLUNOMIDE AND ENBREL SURECLICK IS THERE A CHANCE YOU COULD BE ? :NO ARE YOU BREAST FEEDING? :NO CURRENT MEDICATIONS TAKING VITAMIN D 2000 UNIT CAPSULE 1 TABLET ORALLY ONCE A DAY TAKING CANE . MISCELLANEOUS QUAD CANE _ QD R27 TAKING CALCIUM 600 + D 600-400 MG-UNIT TABLET 1 TABLET ORALLY ONCE A DAY TAKING ELMIRON 100 MG CAPSULE 1 CAPSULE ON AN EMPTY STOMACH 1 TABLET THREE A DAY TAKING LEFLUNOMIDE 20 MG TABLET 1 TABLET ORALLY ONCE A DAY TAKING ENBREL SURECLICK 50 MG/ML SOLUTION AUTO-INJECTOR DIRECTED SUBCUTANEOUS ONCE A WEEK TAKING CYANOCOBALAMIN 500 MCG TABLET 1 TABLET ORALLY 1 EVERY 5 DAYS TAKING CARAFATE 1 GM TABLET 1 TABLET ON AN EMPTY STOMACH ORALLY AC TID TAKING ATORVASTATIN CALCIUM 20 MG TABLET 1 TABLET ORALLY ONCE A DAY TAKING FISH OIL 1000 MG CAPSULE 1 CAPSULE ORALLY ONCE A DAY TAKING ESCITALOPRAM OXALATE 10 MG TABLET 15MG 1.5 TABLET ORALLY ONCE A DAY TAKING ESOMEPRAZOLE MAGNESIUM 40 MG CAPSULE DELAYED RELEASE 1 CAPSULE ORALLY AC BID TAKING CARISOPRODOL 350 MG TABLET 1 TABLET NEEDED ORALLY TID PRN, MDD 3 TAKING HYDROCODONE-ACETAMINOPHEN 5-325 MG TABLET 1 TABLET NEEDED ORALLY TID PRN MDD = 3 MEDICATION LIST REVIEWED AND RECONCILED WITH THE PATIENT PAST MEDICAL HISTORY RA/OSTEOARTHRITIS/FIBROMYALGIA NICOTINE ADDICTION-08/2011 FEV1 2.5L (101%)/RATIO 97%-1 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 GERD/DYSPEPSIA-06/2016 NORMAL EGD/COLON/SB CAPSULE-R HYPERLIPIDEMIA 2B ENDOMETRIOSIS 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 SPENCER 2008 FOLLOWS WITH WOMAN TO WOMAN HISTORY OF TUBULAR ADENOMA-NORMAL COLONOSCOPY APRIL 2009 NORMAL COLONOSCOPY C - RANDOM BIOPSIES-[place] COLONOSCOPY 07/18/16 REINDL CERVICAL DJD STATUS POST MULTILEVEL FUSION-01/2010 MRI STABLE ACDF C BASELINE DJD ATROPHIC VAGINITIS OSTEOPENIA VITAMIN D DEFICIENCY CHRONIC SINUSITIS / NONE LATELY RECURRENT UTI / YEARS AGO CHRONIC DIARRHEA STATUS POST LAPAROSCOPIC CHOLECYSTECTOMY JULY 2009//[id number] CHRONIC DRY EYES MEMORY LOSS 2 INSOMNIA, WORK STRESS-12/2011 NORMAL MRI BRAIN S AND NORMAL WORKUP LUMBAR DJD-L2/3 BULGE C L IF HNP C L L2 COMPRESSION, L3/4 SEVERE CCS C B L3 COMPRESSION BY 03/2017 MRI LONG-TERM DISABILITY-TAKEN OOW 08/05/[address] BARAJAS, 01/2014 FILLED OUT LTD PAPERWORK FOR GUARDIAN-PATIENT DEFERRED WCE INSOMNIA, COOMORBID ANXIETY OCULAR SURFACE DISEASE ALLERGIES METHOTREXATE (ANTI-RHEUMATIC): MIGRANES - SIDE EFFECTS CYMBALTA: RACING PLUSE, SHAKES - ALLERGY WELLBUTRIN: PALPITATIONS, SEVERE - ALLERGY SULFA (FOR ALLERGY USE ONLY): NAUSEA/VOMITING - ALLERGY LYRICA: PALPITATIONS - ALLERGY CELEXA: PALPITATIONS - SIDE EFFECTS ORENCIA: ANAPHYLAXIS - ALLERGY TOPICAL ALOE VERA: SEVERE ITCHING CANNOT TOLERATE ASA BASED PRODUCTS/ NSAIDS: HX STOMACH BLEED - CONTRAINDICATION SURGICAL HISTORY LAPAROSCOPY X2 CHRISTINE BTL 1982 TVH [address] SPENCER 2008 VAGINAL CUFF BX. IRMA CHANDLER NP 03/07 CHOLECYSTECTOMY 06/09 ACDF-C4-T1 10/06 R BREAST [id number] 09/2010 ABOVE L CTR- FISH 10/27/14 L4-L5 FUSION/LAMINECTOMY 09/2013 NORMAL EGD/COLON/SB CAPSULE-R 06/2016 FUSION C5 C6 1999 HYSTERECTOMY 1988 BENIGN MOLE REMOVAL 2018 SOCIAL HISTORY GENERAL: TOBACCO USE ARE YOU A:CURRENT SMOKER ARE YOU INTERESTED IN QUITTING?THINKING ABOUT QUITTING COUNSELED THE PATIENT ON SMOKING CESSATION, EDUCATION [id number]/30/2021 HOW MANY CIGARETTES A DAY DO YOU SMOKE?5 OR LESS HOW SOON AFTER YOU WAKE UP DO YOU SMOKE YOUR FIRST CIGARETTE?AFTER 60 MIN HOW OFTEN DO YOU SMOKE CIGARETTES?EVERY DAY PATIENT COUNSELED ON THE DANGERS OF TOBACCO USE AND URGED TO QUIT:05/26/2020 VAPORNO E-CIGARETTENO LATEX QUESTIONNAIRE LATEX ALLERGY : HAVE YOU EVER DEVELOPED ANY TYPE OF REACTION AFTER HANDLING LATEX PRODUCTS SUCH RUBBER GLOVES, CONDOMS, DIAPHRAGMS, BALLOONS, SOCKS, OR UNDERWEAR?NO LATEX ALLERGY : HAVE YOU EVER DEVELOPED ANY TYPE OF REACTION DURING OR AFTER DENTAL APPOINTMENT, VAGINAL/RECTAL EXAMINATION, SURGICAL PROCEDURE, OR ANY OTHER EXPOSURE?NO LATEX RISK : HAVE YOU EVER HAD ANY DIFFICULTY BREATHING OR HIVES AFTER EATING OR HANDLING ANY FRUITS, OR VEGETABLES; SUCH KIWI, BANANAS, STONE FRUITS, OR CHESTNUTSNO LATEX RISK : DO YOU HAVE A PREVIOUS PERSONAL HISTORY OF MORE THAN NINE SURGERIES, SPINA BIFIDA, OR REPEATED CATHERIZATIONS? YES LATEX RISK : ARE YOU FREQUENTLY EXPOSED TO LATEX PRODUCTS IN YOUR OCCUPATION?NO DATE ASKED : 07/27/2020 ALCOHOL USE: NO, ONCE EVERY 4 MONTH. ALCOHOL SCREENING DID YOU HAVE A DRINK CONTAINING ALCOHOL IN THE PAST YEAR?YES HOW OFTEN DID YOU HAVE A DRINK CONTAINING ALCOHOL IN THE PAST YEAR?MONTHLY OR LESS (1 POINT) POINTS1 INTERPRETATIONNEGATIVE RECREATIONAL DRUG USE DRUG USE?NO CAFFEINE CAFFEINE USE?YES 2-3 DAILY SEXUAL HX HAD SEX IN THE LAST 12 MONTHS (VAGINAL, ORAL, OR ANAL)?NO HAVE YOU EVER HAD AN STD?NO HIV / HEP-C SCREENING HIV TEST OFFERED TO PATIENT:YES DATE OFFERED:06/28/2017 TEST ACCEPTED:NO HEP-C TEST OFFERED TO PATIENT:YES DATE OFFERED:06/28/2017 REASON:PATIENT DECLINED TEST ACCEPTED:NO REASON:PATIENT DECLINED NONDENOMINATIONAL [id number] NONE NO AMISH BELIEFS THAT WOULD IMPACT HEALTH CARE. LANGUAGE LANGUAGES SPOKEN:FAROESE EDUCATION LEVEL OF EDUCATION:HIGH SCHOOL GED LEARNING BARRIERS / SPECIAL NEEDS CHANGE FROM LAST VISIT?NO BARRIERS TO LEARNING?NO HEARING IMPAIRED?NO TINITUS VISION IMPAIRED?YES :CORRECTIVE LENSES COGNITIVELY IMPAIRED?NO READINESS TO LEARN?YES LEARNING PREFERENCES?NO LEARNING CAPABILITIES PRESENT?YES EMOTIONAL BARRIERS?NO SPECIAL DEVICES?YES :CANE NEEDED DIRECT MAIL COORDINATOR NEEDED?NO DOMESTIC VIOLENCE DO YOU FEEL SAFE IN YOUR ENVIRONMENT?YES OCCUPATION: DISABLED. DIET: AVOIDS GREASY, FRIED FOODS, DAIRY.TRIES TO EAT SMALLER PORTIONS. EXERCISE: LOWER BACK EXERCISES, WALKS TOLERATED. MARITAL STATUS: .. OTHERS AT HOME: DAUGHTER. - PFS REFERRAL NEEDED?NO CLERGY REFERRAL NEEDED?NO PUBLIC HEALTH REFERRAL NEEDED?NO HAS THE PATIENT BEEN EDUCATED REGARDING HIS/HER PLAN OF CARE?YES HAS THE PATIENT BEEN EDUCATED REGARDING PAIN, THE RISK FOR PAIN, THE IMPORTANCE OF EFFECTIVE PAIN MANAGEMENT, AND THE PAIN ASSESSMENT PROCESS?YES ADVANCE DIRECTIVE ADVANCE DIRECTIVE DISCUSSED WITH PATIENT:YES PT STATES SHE HAS A HEALTH CARE PROXY-RAH ROSARIO [phone] HOSPITALIZATION/MAJOR DIAGNOSTIC PROCEDURE SURGICAL RELATED REVIEW OF SYSTEMS CONSTITUTIONAL: ANY RECENT FEVER NO . CHILLS NO . WEIGHT CHANGE OF UNKNOWN REASONS NO . GASTROENTEROLOGY: NEW UNEXPLAINABLE CHANGES IN BOWEL CONTROL NO . CONSTIPATION NO . GENITOURINARY: ANY NEW CHANGE IN BLADDER CONTROL? NO . NEUROLOGY: NEW ONSET DIZZINESS OR NEUROLOGICAL CHANGES NOT MENTIONED NO . NEW NUMBNESS OR PAIN PATTERNS NOT MENTIONED AND PERTINENT TO TODAY'S VISIT NO . CARDIOLOGY: NEW CHEST PRESSURE NO . PATIENT DENIES NO . RESPIRATORY: UNEXPLAINABLE COUGH NO . NEW SHORTNESS OF BREATH NO . VITAL SIGNS WT 125 LBS, HT 64 IN, BMI 21.45 INDEX, BP 126/55 MM HG, HR 85 /MIN, RR 18 /MIN, TEMP 98.3 F, OXYGEN SAT % 96%, SAFE IN ENV? (Y/N) YEST.CARYN CORLEY. EXAMINATION GENERAL EXAMINATION: GENERAL AWAKE,ALERT ,PLEASANT . PSYCH AFFECT NORMAL . LUNGS: LUNG LINDSEY ARE CLEAR TO AUSCULTATION BILATERALLY. GOOD MOVEMENT OF AIR . HEART: S1, S2 IN A REGULAR RATE AND RHYTHM. NO SIGNIFICANT MURMURS, RUBS OR GALLOPS NOTED . MUSCULOSKELETAL: MUSCLE STRENGTH TESTING 5/5 BILATERAL LOWER EXTREMITIES. LUMBAR: PALPATION: + FOR PAIN OVER L/S SPINE. + FOR PAIN OVER L/S PARASPINALS WELL-HEALED SURGICAL SCAR L/S AXIS. DIAGNOSTIC TESTS REVIEWEDMRI L/S SPINE . 06/2019. ASSESSMENTS SPONDYLOSIS WITHOUT MYELOPATHY OR RADICULOPATHY, LUMBAR REGION - M47.816 (PRIMARY) OTHER CHRONIC PAIN - G89.29 POST LAMINECTOMY SYNDROME - M96.1 TREATMENT SPONDYLOSIS WITHOUT MYELOPATHY OR RADICULOPATHY, LUMBAR REGION NOTES: BILATERAL DIAGNOSTIC LUMBAR FACET BLOCK L4-5,L5-S1 PRINTED AND REVIEWED PRE PROCEDURE WITH PATIENT EZEKIEL CORLEY. OTHER CHRONIC PAIN PAIN PROCEDURE LOGDATE OF PROCEDURE1PROCEDURE:BILATERAL DIAGNOSTIC LUMBAR FACET BLOCK #1 L4-L5,L5-C2TJYBGY OF PRE SEDATE0/0RESULT:GREATER THAN 80% REDUCTION IN PAIN FOR SEVERAL HOURS POSTPROCEDURESLUIS SANTOS 07/28/2020 5:14:14 PM > ANDREA, CAN YOU PLEASE PUT THE PROCEDURE RESULTS IN THIS PROCEDURE LOG? THANKS. PROCEDURE CODES FA211 ESTABILISHED PATIENT [facility] FACILITY CHARGE DISPOSITION & COMMUNICATION FOLLOW UP POST PROCEDURE (REASON: BILATERAL DIAGNOSTIC LUMBAR FACET BLOCK L4-5,L5-S1) ELECTRONICALLY SIGNED BY CARIDAD HENLEY ON 07/30/2020 AT 12:37 PM EDT DISCLAIMER : THIS IS A VISIT SUMMARY EXTRACTED FROM THE [employer] CHART. IT IS NOT A COPY OF THE [employer] PROGRESS NOTE. ZINA
--- NOTE | 2020-07-31 06:48 | ECWPNPC ---
PATIENT NAME: LOGAN CRAVEN : 1960 GENDER: FEMALE VISIT DATE: 07/27/2020 DISCHARGE DATE: 07/27/20 1058 VISIT LOCKED DATE TIME: PHYSICIAN: ANDREA ELIAS PHYSICIAN PAGER NO: ACTIVE RESOURCE: ANDREA ELIAS REASON FOR APPOINTMENT 1. POST BILATERAL DIAGNOSTIC LUMBAR FACET BLOCK #1 L4-L5, L5-S1 HISTORY OF PRESENT ILLNESS GENERAL: HERE FOR POST PROCEDURE FOLLOW-UP. HAD BILATERAL L4-5, L5-S1 LUMBAR DIAGNOSTIC FACET BLOCK ON 07/12/2020. HOURLY DIARY IS REVIEWED AND SHOWS GREATER THAN 80% REDUCTION IN PAIN FOR SEVERAL DAYS. PAIN IS BEGINNING TO RETURN TO BASELINE. DISCUSSED DIAGNOSTIC TESTING #2 AND PROCEEDING WITH RADIOFREQUENCY.-. FALL RISK SCREENING: SCREENING : NO FALLS REPORTED IN THE LAST YEAR. PAIN SCREENING: PATIENT HAS A COMPLAINT OF ACUTE OR CHRONIC PAIN :YES LOCATION OF PAIN:LOW BACK INTENSITY OF PAIN (SCALE OF 1 TO 10):4 WHAT DOES YOUR PAIN FEEL LIKE:CONTINOUS DURATION:CONSTANT PAIN IS INCREASED BY:ACTIVITIES, PROLONGED STANDING, OTHERS WALKING PAIN IS DECREASED BY:OTHERS RESTING AND HEAT AND ICE NURSING NOTE: -. PAIN CENTER INTAKE QUESTIONS: DO YOU HAVE A HISTORY OF MRSA? :NO DO YOU TAKE A BLOOD THINNERS? :YES ELMIRON DO YOU HAVE ANY BLEEDING DISORDERS? :NO ANY NEW NUMBNESS OR WEAKNESS IN YOUR LEGS OR ARMS? :NO ANY PACEMAKER,DEFIBRILLATOR, OR DORSAL COLUMN STIMULATOR? :NO DO YOU HAVE ANY RASHES OR OPEN SORES? :NO ARE YOU ALLERGIC TO IV DYE? :NO ARE YOU DIABETIC? :NO ANY NEW PROBLEMS WITH YOUR MEDICATIONS? :NO HAVE YOU RECEIVED A VACCINE IN THE PAST 30 DAYS? :NO DO YOU PLAN TO RECEIVE A VACCINE IN THE NEXT 21 DAYS? :NO DO YOU NEED ANY PRESCRIPTION? :NO DO YOU TAKE ANY IMMUNOSUPPRESSIVE MEDICATIONS? :YES LEFLUNOMIDE AND ENBREL SURECLICK IS THERE A CHANCE YOU COULD BE ? :NO ARE YOU BREAST FEEDING? :NO CURRENT MEDICATIONS TAKING VITAMIN D 2000 UNIT CAPSULE 1 TABLET ORALLY ONCE A DAY TAKING CANE . MISCELLANEOUS QUAD CANE _ QD R27 TAKING CALCIUM 600 + D 600-400 MG-UNIT TABLET 1 TABLET ORALLY ONCE A DAY TAKING ELMIRON 100 MG CAPSULE 1 CAPSULE ON AN EMPTY STOMACH 1 TABLET THREE A DAY TAKING LEFLUNOMIDE 20 MG TABLET 1 TABLET ORALLY ONCE A DAY TAKING ENBREL SURECLICK 50 MG/ML SOLUTION AUTO-INJECTOR DIRECTED SUBCUTANEOUS ONCE A WEEK TAKING CYANOCOBALAMIN 500 MCG TABLET 1 TABLET ORALLY 1 EVERY 5 DAYS TAKING CARAFATE 1 GM TABLET 1 TABLET ON AN EMPTY STOMACH ORALLY AC TID TAKING ATORVASTATIN CALCIUM 20 MG TABLET 1 TABLET ORALLY ONCE A DAY TAKING FISH OIL 1000 MG CAPSULE 1 CAPSULE ORALLY ONCE A DAY TAKING ESCITALOPRAM OXALATE 10 MG TABLET 15MG 1.5 TABLET ORALLY ONCE A DAY TAKING ESOMEPRAZOLE MAGNESIUM 40 MG CAPSULE DELAYED RELEASE 1 CAPSULE ORALLY AC BID TAKING CARISOPRODOL 350 MG TABLET 1 TABLET NEEDED ORALLY TID PRN, MDD 3 TAKING HYDROCODONE-ACETAMINOPHEN 5-325 MG TABLET 1 TABLET NEEDED ORALLY TID PRN MDD = 3 MEDICATION LIST REVIEWED AND RECONCILED WITH THE PATIENT PAST MEDICAL HISTORY RA/OSTEOARTHRITIS/FIBROMYALGIA NICOTINE ADDICTION-08/2011 FEV1 2.5L (101%)/RATIO 97%-1 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 GERD/DYSPEPSIA-06/2016 NORMAL EGD/COLON/SB CAPSULE-R HYPERLIPIDEMIA 2B ENDOMETRIOSIS 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 SPENCER 2008 FOLLOWS WITH WOMAN TO WOMAN HISTORY OF TUBULAR ADENOMA-NORMAL COLONOSCOPY APRIL 2009 NORMAL COLONOSCOPY C - RANDOM BIOPSIES-[place] COLONOSCOPY 07/18/16 REINDL CERVICAL DJD STATUS POST MULTILEVEL FUSION-01/2010 MRI STABLE ACDF C BASELINE DJD ATROPHIC VAGINITIS OSTEOPENIA VITAMIN D DEFICIENCY CHRONIC SINUSITIS / NONE LATELY RECURRENT UTI / YEARS AGO CHRONIC DIARRHEA STATUS POST LAPAROSCOPIC CHOLECYSTECTOMY JULY 2009//[id number]-[id number] CHRONIC DRY EYES MEMORY LOSS 2 INSOMNIA, WORK STRESS-12/2011 NORMAL MRI BRAIN S AND NORMAL WORKUP LUMBAR DJD-L2/3 BULGE C L IF HNP C L L2 COMPRESSION, L3/4 SEVERE CCS C B L3 COMPRESSION BY 03/2017 MRI LONG-TERM DISABILITY-TAKEN OOW 08/05/13 [address] BARAJAS, 01/2014 FILLED OUT LTD PAPERWORK FOR GUARDIAN-PATIENT DEFERRED WCE INSOMNIA, COOMORBID ANXIETY OCULAR SURFACE DISEASE ALLERGIES METHOTREXATE (ANTI-RHEUMATIC): MIGRANES - SIDE EFFECTS CYMBALTA: RACING PLUSE, SHAKES - ALLERGY WELLBUTRIN: PALPITATIONS, SEVERE - ALLERGY SULFA (FOR ALLERGY USE ONLY): NAUSEA/VOMITING - ALLERGY LYRICA: PALPITATIONS - ALLERGY CELEXA: PALPITATIONS - SIDE EFFECTS ORENCIA: ANAPHYLAXIS - ALLERGY TOPICAL ALOE VERA: SEVERE ITCHING CANNOT TOLERATE ASA BASED PRODUCTS/ NSAIDS: HX STOMACH BLEED - CONTRAINDICATION SURGICAL HISTORY LAPAROSCOPY X2 CHRISTINE BTL 1982 TVH [address] SPENCER 2008 VAGINAL CUFF BX. IRMA CHANDLER NP 03/07 CHOLECYSTECTOMY 06/09 ACDF-C4-T1 10/06 R BREAST [id number] 09/2010 ABOVE L CTR- FISH 10/27/14 L4-L5 FUSION/LAMINECTOMY 09/2013 NORMAL EGD/COLON/SB CAPSULE-R 06/2016 FUSION C5 C6 1999 HYSTERECTOMY 1988 BENIGN MOLE REMOVAL 2018 SOCIAL HISTORY GENERAL: TOBACCO USE ARE YOU A:CURRENT SMOKER ARE YOU INTERESTED IN QUITTING?THINKING ABOUT QUITTING COUNSELED THE PATIENT ON SMOKING CESSATION, EDUCATION [id number]/30/2021 HOW MANY CIGARETTES A DAY DO YOU SMOKE?5 OR LESS HOW SOON AFTER YOU WAKE UP DO YOU SMOKE YOUR FIRST CIGARETTE?AFTER 60 MIN HOW OFTEN DO YOU SMOKE CIGARETTES?EVERY DAY PATIENT COUNSELED ON THE DANGERS OF TOBACCO USE AND URGED TO QUIT:05/26/2020 VAPORNO E-CIGARETTENO LATEX QUESTIONNAIRE LATEX ALLERGY : HAVE YOU EVER DEVELOPED ANY TYPE OF REACTION AFTER HANDLING LATEX PRODUCTS SUCH RUBBER GLOVES, CONDOMS, DIAPHRAGMS, BALLOONS, SOCKS, OR UNDERWEAR?NO LATEX ALLERGY : HAVE YOU EVER DEVELOPED ANY TYPE OF REACTION DURING OR AFTER DENTAL APPOINTMENT, VAGINAL/RECTAL EXAMINATION, SURGICAL PROCEDURE, OR ANY OTHER EXPOSURE?NO LATEX RISK : HAVE YOU EVER HAD ANY DIFFICULTY BREATHING OR HIVES AFTER EATING OR HANDLING ANY FRUITS, OR VEGETABLES; SUCH KIWI, BANANAS, STONE FRUITS, OR CHESTNUTSNO LATEX RISK : DO YOU HAVE A PREVIOUS PERSONAL HISTORY OF MORE THAN NINE SURGERIES, SPINA BIFIDA, OR REPEATED CATHERIZATIONS? YES LATEX RISK : ARE YOU FREQUENTLY EXPOSED TO LATEX PRODUCTS IN YOUR OCCUPATION?NO DATE ASKED : 07/27/2020 ALCOHOL USE: NO, ONCE EVERY 4 MONTH. ALCOHOL SCREENING DID YOU HAVE A DRINK CONTAINING ALCOHOL IN THE PAST YEAR?YES HOW OFTEN DID YOU HAVE A DRINK CONTAINING ALCOHOL IN THE PAST YEAR?MONTHLY OR LESS (1 POINT) POINTS1 INTERPRETATIONNEGATIVE RECREATIONAL DRUG USE DRUG USE?NO CAFFEINE CAFFEINE USE?YES 2-3 DAILY SEXUAL HX HAD SEX IN THE LAST 12 MONTHS (VAGINAL, ORAL, OR ANAL)?NO HAVE YOU EVER HAD AN STD?NO HIV / HEP-C SCREENING HIV TEST OFFERED TO PATIENT:YES DATE OFFERED:06/28/2017 TEST ACCEPTED:NO HEP-C TEST OFFERED TO PATIENT:YES DATE OFFERED:06/28/2017 REASON:PATIENT DECLINED TEST ACCEPTED:NO REASON:PATIENT DECLINED CONFUCIANIST [id number] NONE NO VOODOO BELIEFS THAT WOULD IMPACT HEALTH CARE. LANGUAGE LANGUAGES SPOKEN:FRENCH EDUCATION LEVEL OF EDUCATION:HIGH SCHOOL GED LEARNING BARRIERS / SPECIAL NEEDS CHANGE FROM LAST VISIT?NO BARRIERS TO LEARNING?NO HEARING IMPAIRED?NO TINITUS VISION IMPAIRED?YES :CORRECTIVE LENSES COGNITIVELY IMPAIRED?NO READINESS TO LEARN?YES LEARNING PREFERENCES?NO LEARNING CAPABILITIES PRESENT?YES EMOTIONAL BARRIERS?NO SPECIAL DEVICES?YES :CANE NEEDED [employer] CONSULTANT NEEDED?NO DOMESTIC VIOLENCE DO YOU FEEL SAFE IN YOUR ENVIRONMENT?YES OCCUPATION: DISABLED. DIET: AVOIDS GREASY, FRIED FOODS, DAIRY.TRIES TO EAT SMALLER PORTIONS. EXERCISE: LOWER BACK EXERCISES, WALKS TOLERATED. MARITAL STATUS: .. OTHERS AT HOME: DAUGHTER. - PFS REFERRAL NEEDED?NO CLERGY REFERRAL NEEDED?NO PUBLIC HEALTH REFERRAL NEEDED?NO HAS THE PATIENT BEEN EDUCATED REGARDING HIS/HER PLAN OF CARE?YES HAS THE PATIENT BEEN EDUCATED REGARDING PAIN, THE RISK FOR PAIN, THE IMPORTANCE OF EFFECTIVE PAIN MANAGEMENT, AND THE PAIN ASSESSMENT PROCESS?YES ADVANCE DIRECTIVE ADVANCE DIRECTIVE DISCUSSED WITH PATIENT:YES PT STATES SHE HAS A HEALTH CARE PROXY-RAH ROSARIO [phone] HOSPITALIZATION/MAJOR DIAGNOSTIC PROCEDURE SURGICAL RELATED REVIEW OF SYSTEMS CONSTITUTIONAL: ANY RECENT FEVER NO . CHILLS NO . WEIGHT CHANGE OF UNKNOWN REASONS NO . GASTROENTEROLOGY: NEW UNEXPLAINABLE CHANGES IN BOWEL CONTROL NO . CONSTIPATION NO . GENITOURINARY: ANY NEW CHANGE IN BLADDER CONTROL? NO . NEUROLOGY: NEW ONSET DIZZINESS OR NEUROLOGICAL CHANGES NOT MENTIONED NO . NEW NUMBNESS OR PAIN PATTERNS NOT MENTIONED AND PERTINENT TO TODAY'S VISIT NO . CARDIOLOGY: NEW CHEST PRESSURE NO . PATIENT DENIES NO . RESPIRATORY: UNEXPLAINABLE COUGH NO . NEW SHORTNESS OF BREATH NO . VITAL SIGNS WT 125 LBS, HT 64 IN, BMI 21.45 INDEX, BP 126/55 MM HG, HR 85 /MIN, RR 18 /MIN, TEMP 98.3 F, OXYGEN SAT % 96%, SAFE IN ENV? (Y/N) YEST.CARYN CORLEY. EXAMINATION GENERAL EXAMINATION: GENERAL AWAKE,ALERT ,PLEASANT . PSYCH AFFECT NORMAL . LUNGS: LUNG LINDSEY ARE CLEAR TO AUSCULTATION BILATERALLY. GOOD MOVEMENT OF AIR . HEART: S1, S2 IN A REGULAR RATE AND RHYTHM. NO SIGNIFICANT MURMURS, RUBS OR GALLOPS NOTED . MUSCULOSKELETAL: MUSCLE STRENGTH TESTING 5/5 BILATERAL LOWER EXTREMITIES. LUMBAR: PALPATION: + FOR PAIN OVER L/S SPINE. + FOR PAIN OVER L/S PARASPINALS WELL-HEALED SURGICAL SCAR L/S AXIS. DIAGNOSTIC TESTS REVIEWEDMRI L/S SPINE . 06/2019. ASSESSMENTS SPONDYLOSIS WITHOUT MYELOPATHY OR RADICULOPATHY, LUMBAR REGION - M47.816 (PRIMARY) OTHER CHRONIC PAIN - G89.29 POST LAMINECTOMY SYNDROME - M96.1 TREATMENT SPONDYLOSIS WITHOUT MYELOPATHY OR RADICULOPATHY, LUMBAR REGION NOTES: BILATERAL DIAGNOSTIC LUMBAR FACET BLOCK L4-5,L5-S1 PRINTED AND REVIEWED PRE PROCEDURE WITH PATIENT EZEKIEL CORLEY. OTHER CHRONIC PAIN PAIN PROCEDURE LOGDATE OF PROCEDURE1PROCEDURE:BILATERAL DIAGNOSTIC LUMBAR FACET BLOCK #1 L4-L5,L5-H8LJLQTE OF PRE SEDATE0/0RESULT:GREATER THAN 80% REDUCTION IN PAIN FOR SEVERAL HOURS POSTPROCEDURESLUIS SANTOS 07/28/2020 5:14:14 PM > ANDREA, CAN YOU PLEASE PUT THE PROCEDURE RESULTS IN THIS PROCEDURE LOG? THANKS. PROCEDURE CODES FA211 ESTABILISHED PATIENT [facility] FACILITY CHARGE DISPOSITION & COMMUNICATION FOLLOW UP POST PROCEDURE (REASON: BILATERAL DIAGNOSTIC LUMBAR FACET BLOCK L4-5,L5-S1) ELECTRONICALLY SIGNED BY CARIDAD HENLEY ON 07/30/2020 AT 12:37 PM EDT DISCLAIMER : THIS IS A VISIT SUMMARY EXTRACTED FROM THE [employer] CHART. IT IS NOT A COPY OF THE [employer] PROGRESS NOTE. ZINA
--- NOTE | 2020-07-31 06:50 | ECWPNPC ---
PATIENT NAME: LOGAN CRAVEN : 1960 GENDER: FEMALE VISIT DATE: 07/27/2020 DISCHARGE DATE: 07/27/20 1058 VISIT LOCKED DATE TIME: PHYSICIAN: ANDREA ELIAS PHYSICIAN PAGER NO: ACTIVE RESOURCE: ANDREA ELIAS REASON FOR APPOINTMENT 1. POST BILATERAL DIAGNOSTIC LUMBAR FACET BLOCK #1 L4-L5, L5-S1 HISTORY OF PRESENT ILLNESS GENERAL: HERE FOR POST PROCEDURE FOLLOW-UP. HAD BILATERAL L4-5, L5-S1 LUMBAR DIAGNOSTIC FACET BLOCK ON 07/12/2020. HOURLY DIARY IS REVIEWED AND SHOWS GREATER THAN 80% REDUCTION IN PAIN FOR SEVERAL DAYS. PAIN IS BEGINNING TO RETURN TO BASELINE. DISCUSSED DIAGNOSTIC TESTING #2 AND PROCEEDING WITH RADIOFREQUENCY.-. FALL RISK SCREENING: SCREENING : NO FALLS REPORTED IN THE LAST YEAR. PAIN SCREENING: PATIENT HAS A COMPLAINT OF ACUTE OR CHRONIC PAIN :YES LOCATION OF PAIN:LOW BACK INTENSITY OF PAIN (SCALE OF 1 TO 10):4 WHAT DOES YOUR PAIN FEEL LIKE:CONTINOUS DURATION:CONSTANT PAIN IS INCREASED BY:ACTIVITIES, PROLONGED STANDING, OTHERS WALKING PAIN IS DECREASED BY:OTHERS RESTING AND HEAT AND ICE NURSING NOTE: -. PAIN CENTER INTAKE QUESTIONS: DO YOU HAVE A HISTORY OF MRSA? :NO DO YOU TAKE A BLOOD THINNERS? :YES ELMIRON DO YOU HAVE ANY BLEEDING DISORDERS? :NO ANY NEW NUMBNESS OR WEAKNESS IN YOUR LEGS OR ARMS? :NO ANY PACEMAKER,DEFIBRILLATOR, OR DORSAL COLUMN STIMULATOR? :NO DO YOU HAVE ANY RASHES OR OPEN SORES? :NO ARE YOU ALLERGIC TO IV DYE? :NO ARE YOU DIABETIC? :NO ANY NEW PROBLEMS WITH YOUR MEDICATIONS? :NO HAVE YOU RECEIVED A VACCINE IN THE PAST 30 DAYS? :NO DO YOU PLAN TO RECEIVE A VACCINE IN THE NEXT 21 DAYS? :NO DO YOU NEED ANY PRESCRIPTION? :NO DO YOU TAKE ANY IMMUNOSUPPRESSIVE MEDICATIONS? :YES LEFLUNOMIDE AND ENBREL SURECLICK IS THERE A CHANCE YOU COULD BE ? :NO ARE YOU BREAST FEEDING? :NO CURRENT MEDICATIONS TAKING VITAMIN D 2000 UNIT CAPSULE 1 TABLET ORALLY ONCE A DAY TAKING CANE . MISCELLANEOUS QUAD CANE _ QD R27 TAKING CALCIUM 600 + D 600-400 MG-UNIT TABLET 1 TABLET ORALLY ONCE A DAY TAKING ELMIRON 100 MG CAPSULE 1 CAPSULE ON AN EMPTY STOMACH 1 TABLET THREE A DAY TAKING LEFLUNOMIDE 20 MG TABLET 1 TABLET ORALLY ONCE A DAY TAKING ENBREL SURECLICK 50 MG/ML SOLUTION AUTO-INJECTOR DIRECTED SUBCUTANEOUS ONCE A WEEK TAKING CYANOCOBALAMIN 500 MCG TABLET 1 TABLET ORALLY 1 EVERY 5 DAYS TAKING CARAFATE 1 GM TABLET 1 TABLET ON AN EMPTY STOMACH ORALLY AC TID TAKING ATORVASTATIN CALCIUM 20 MG TABLET 1 TABLET ORALLY ONCE A DAY TAKING FISH OIL 1000 MG CAPSULE 1 CAPSULE ORALLY ONCE A DAY TAKING ESCITALOPRAM OXALATE 10 MG TABLET 15MG 1.5 TABLET ORALLY ONCE A DAY TAKING ESOMEPRAZOLE MAGNESIUM 40 MG CAPSULE DELAYED RELEASE 1 CAPSULE ORALLY AC BID TAKING CARISOPRODOL 350 MG TABLET 1 TABLET NEEDED ORALLY TID PRN, MDD 3 TAKING HYDROCODONE-ACETAMINOPHEN 5-325 MG TABLET 1 TABLET NEEDED ORALLY TID PRN MDD = 3 MEDICATION LIST REVIEWED AND RECONCILED WITH THE PATIENT PAST MEDICAL HISTORY RA/OSTEOARTHRITIS/FIBROMYALGIA NICOTINE ADDICTION-08/2011 FEV1 2.5L (101%)/RATIO 97%-1 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 GERD/DYSPEPSIA-06/2016 NORMAL EGD/COLON/SB CAPSULE-R HYPERLIPIDEMIA 2B ENDOMETRIOSIS 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 SPENCER 2008 FOLLOWS WITH WOMAN TO WOMAN HISTORY OF TUBULAR ADENOMA-NORMAL COLONOSCOPY APRIL 2009 NORMAL COLONOSCOPY C - RANDOM BIOPSIES-[place] COLONOSCOPY 07/18/16 REINDL CERVICAL DJD STATUS POST MULTILEVEL FUSION-01/2010 MRI STABLE ACDF C BASELINE DJD ATROPHIC VAGINITIS OSTEOPENIA VITAMIN D DEFICIENCY CHRONIC SINUSITIS / NONE LATELY RECURRENT UTI / YEARS AGO CHRONIC DIARRHEA STATUS POST LAPAROSCOPIC CHOLECYSTECTOMY JULY 2009//[id number] CHRONIC DRY EYES MEMORY LOSS 2 INSOMNIA, WORK STRESS-12/2011 NORMAL MRI BRAIN S AND NORMAL WORKUP LUMBAR DJD-L2/3 BULGE C L IF HNP C L L2 COMPRESSION, L3/4 SEVERE CCS C B L3 COMPRESSION BY 03/2017 MRI LONG-TERM DISABILITY-TAKEN OOW 08/05/[address] BARAJAS, 01/2014 FILLED OUT LTD PAPERWORK FOR GUARDIAN-PATIENT DEFERRED WCE INSOMNIA, COOMORBID ANXIETY OCULAR SURFACE DISEASE ALLERGIES METHOTREXATE (ANTI-RHEUMATIC): MIGRANES - SIDE EFFECTS CYMBALTA: RACING PLUSE, SHAKES - ALLERGY WELLBUTRIN: PALPITATIONS, SEVERE - ALLERGY SULFA (FOR ALLERGY USE ONLY): NAUSEA/VOMITING - ALLERGY LYRICA: PALPITATIONS - ALLERGY CELEXA: PALPITATIONS - SIDE EFFECTS ORENCIA: ANAPHYLAXIS - ALLERGY TOPICAL ALOE VERA: SEVERE ITCHING CANNOT TOLERATE ASA BASED PRODUCTS/ NSAIDS: HX STOMACH BLEED - CONTRAINDICATION SURGICAL HISTORY LAPAROSCOPY X2 CHRISTINE BTL 1982 TVH [address] SPENCER 2008 VAGINAL CUFF BX. IRMA CHANDLER NP 03/07 CHOLECYSTECTOMY 06/09 ACDF-C4-T1 10/06 R BREAST [id number] 09/2010 ABOVE L CTR- FISH 10/27/14 L4-L5 FUSION/LAMINECTOMY 09/2013 NORMAL EGD/COLON/SB CAPSULE-R 06/2016 FUSION C5 C6 1999 HYSTERECTOMY 1988 BENIGN MOLE REMOVAL 2018 SOCIAL HISTORY GENERAL: TOBACCO USE ARE YOU A:CURRENT SMOKER ARE YOU INTERESTED IN QUITTING?THINKING ABOUT QUITTING COUNSELED THE PATIENT ON SMOKING CESSATION, EDUCATION [id number]/30/2021 HOW MANY CIGARETTES A DAY DO YOU SMOKE?5 OR LESS HOW SOON AFTER YOU WAKE UP DO YOU SMOKE YOUR FIRST CIGARETTE?AFTER 60 MIN HOW OFTEN DO YOU SMOKE CIGARETTES?EVERY DAY PATIENT COUNSELED ON THE DANGERS OF TOBACCO USE AND URGED TO QUIT:05/26/2020 VAPORNO E-CIGARETTENO LATEX QUESTIONNAIRE LATEX ALLERGY : HAVE YOU EVER DEVELOPED ANY TYPE OF REACTION AFTER HANDLING LATEX PRODUCTS SUCH RUBBER GLOVES, CONDOMS, DIAPHRAGMS, BALLOONS, SOCKS, OR UNDERWEAR?NO LATEX ALLERGY : HAVE YOU EVER DEVELOPED ANY TYPE OF REACTION DURING OR AFTER DENTAL APPOINTMENT, VAGINAL/RECTAL EXAMINATION, SURGICAL PROCEDURE, OR ANY OTHER EXPOSURE?NO LATEX RISK : HAVE YOU EVER HAD ANY DIFFICULTY BREATHING OR HIVES AFTER EATING OR HANDLING ANY FRUITS, OR VEGETABLES; SUCH KIWI, BANANAS, STONE FRUITS, OR CHESTNUTSNO LATEX RISK : DO YOU HAVE A PREVIOUS PERSONAL HISTORY OF MORE THAN NINE SURGERIES, SPINA BIFIDA, OR REPEATED CATHERIZATIONS? YES LATEX RISK : ARE YOU FREQUENTLY EXPOSED TO LATEX PRODUCTS IN YOUR OCCUPATION?NO DATE ASKED : 07/27/2020 ALCOHOL USE: NO, ONCE EVERY 4 MONTH. ALCOHOL SCREENING DID YOU HAVE A DRINK CONTAINING ALCOHOL IN THE PAST YEAR?YES HOW OFTEN DID YOU HAVE A DRINK CONTAINING ALCOHOL IN THE PAST YEAR?MONTHLY OR LESS (1 POINT) POINTS1 INTERPRETATIONNEGATIVE RECREATIONAL DRUG USE DRUG USE?NO CAFFEINE CAFFEINE USE?YES 2-3 DAILY SEXUAL HX HAD SEX IN THE LAST 12 MONTHS (VAGINAL, ORAL, OR ANAL)?NO HAVE YOU EVER HAD AN STD?NO HIV / HEP-C SCREENING HIV TEST OFFERED TO PATIENT:YES DATE OFFERED:06/28/2017 TEST ACCEPTED:NO HEP-C TEST OFFERED TO PATIENT:YES DATE OFFERED:06/28/2017 REASON:PATIENT DECLINED TEST ACCEPTED:NO REASON:PATIENT DECLINED PRESYBETERIAN [id number] NONE NO ADVENT BELIEFS THAT WOULD IMPACT HEALTH CARE. LANGUAGE LANGUAGES SPOKEN:[place] EDUCATION LEVEL OF EDUCATION:HIGH SCHOOL GED LEARNING BARRIERS / SPECIAL NEEDS CHANGE FROM LAST VISIT?NO BARRIERS TO LEARNING?NO HEARING IMPAIRED?NO TINITUS VISION IMPAIRED?YES :CORRECTIVE LENSES COGNITIVELY IMPAIRED?NO READINESS TO LEARN?YES LEARNING PREFERENCES?NO LEARNING CAPABILITIES PRESENT?YES EMOTIONAL BARRIERS?NO SPECIAL DEVICES?YES :CANE NEEDED DIESEL ENGINE FITTER NEEDED?NO DOMESTIC VIOLENCE DO YOU FEEL SAFE IN YOUR ENVIRONMENT?YES OCCUPATION: DISABLED. DIET: AVOIDS GREASY, FRIED FOODS, DAIRY.TRIES TO EAT SMALLER PORTIONS. EXERCISE: LOWER BACK EXERCISES, WALKS TOLERATED. MARITAL STATUS: .. OTHERS AT HOME: DAUGHTER. - PFS REFERRAL NEEDED?NO CLERGY REFERRAL NEEDED?NO PUBLIC HEALTH REFERRAL NEEDED?NO HAS THE PATIENT BEEN EDUCATED REGARDING HIS/HER PLAN OF CARE?YES HAS THE PATIENT BEEN EDUCATED REGARDING PAIN, THE RISK FOR PAIN, THE IMPORTANCE OF EFFECTIVE PAIN MANAGEMENT, AND THE PAIN ASSESSMENT PROCESS?YES ADVANCE DIRECTIVE ADVANCE DIRECTIVE DISCUSSED WITH PATIENT:YES PT STATES SHE HAS A HEALTH CARE PROXY-RAH ROSARIO [phone] HOSPITALIZATION/MAJOR DIAGNOSTIC PROCEDURE SURGICAL RELATED REVIEW OF SYSTEMS CONSTITUTIONAL: ANY RECENT FEVER NO . CHILLS NO . WEIGHT CHANGE OF UNKNOWN REASONS NO . GASTROENTEROLOGY: NEW UNEXPLAINABLE CHANGES IN BOWEL CONTROL NO . CONSTIPATION NO . GENITOURINARY: ANY NEW CHANGE IN BLADDER CONTROL? NO . NEUROLOGY: NEW ONSET DIZZINESS OR NEUROLOGICAL CHANGES NOT MENTIONED NO . NEW NUMBNESS OR PAIN PATTERNS NOT MENTIONED AND PERTINENT TO TODAY'S VISIT NO . CARDIOLOGY: NEW CHEST PRESSURE NO . PATIENT DENIES NO . RESPIRATORY: UNEXPLAINABLE COUGH NO . NEW SHORTNESS OF BREATH NO . VITAL SIGNS WT 125 LBS, HT 64 IN, BMI 21.45 INDEX, BP 126/55 MM HG, HR 85 /MIN, RR 18 /MIN, TEMP 98.3 F, OXYGEN SAT % 96%, SAFE IN ENV? (Y/N) YEST.CARYN CORLEY. EXAMINATION GENERAL EXAMINATION: GENERAL AWAKE,ALERT ,PLEASANT . PSYCH AFFECT NORMAL . LUNGS: LUNG LINDSEY ARE CLEAR TO AUSCULTATION BILATERALLY. GOOD MOVEMENT OF AIR . HEART: S1, S2 IN A REGULAR RATE AND RHYTHM. NO SIGNIFICANT MURMURS, RUBS OR GALLOPS NOTED . MUSCULOSKELETAL: MUSCLE STRENGTH TESTING 5/5 BILATERAL LOWER EXTREMITIES. LUMBAR: PALPATION: + FOR PAIN OVER L/S SPINE. + FOR PAIN OVER L/S PARASPINALS WELL-HEALED SURGICAL SCAR L/S AXIS. DIAGNOSTIC TESTS REVIEWEDMRI L/S SPINE . 06/2019. ASSESSMENTS SPONDYLOSIS WITHOUT MYELOPATHY OR RADICULOPATHY, LUMBAR REGION - M47.816 (PRIMARY) OTHER CHRONIC PAIN - G89.29 POST LAMINECTOMY SYNDROME - M96.1 TREATMENT SPONDYLOSIS WITHOUT MYELOPATHY OR RADICULOPATHY, LUMBAR REGION NOTES: BILATERAL DIAGNOSTIC LUMBAR FACET BLOCK L4-5,L5-S1 PRINTED AND REVIEWED PRE PROCEDURE WITH PATIENT EZEKIEL CORLEY. OTHER CHRONIC PAIN PAIN PROCEDURE LOGDATE OF PROCEDURE1PROCEDURE:BILATERAL DIAGNOSTIC LUMBAR FACET BLOCK #1 L4-L5,L5-T0EFGLQI OF PRE SEDATE0/0RESULT:GREATER THAN 80% REDUCTION IN PAIN FOR SEVERAL HOURS POSTPROCEDURESLUIS SANTOS 07/28/2020 5:14:14 PM > ANDREA, CAN YOU PLEASE PUT THE PROCEDURE RESULTS IN THIS PROCEDURE LOG? THANKS. PROCEDURE CODES FA211 ESTABILISHED PATIENT [facility] CHARGE DISPOSITION & COMMUNICATION FOLLOW UP POST PROCEDURE (REASON: BILATERAL DIAGNOSTIC LUMBAR FACET BLOCK L4-5,L5-S1) ELECTRONICALLY SIGNED BY CARIDAD HENLEY ON 07/30/2020 AT 12:37 PM EDT DISCLAIMER : THIS IS A VISIT SUMMARY EXTRACTED FROM THE [employer] CHART. IT IS NOT A COPY OF THE [employer] PROGRESS NOTE. ZINA
--- NOTE | 2020-07-31 06:52 | ECWPNPC ---
PATIENT NAME: LOGAN CRAVEN : 1960 GENDER: FEMALE VISIT DATE: 07/27/2020 DISCHARGE DATE: 07/27/20 1058 VISIT LOCKED DATE TIME: PHYSICIAN: ANDREA ELIAS PHYSICIAN PAGER NO: ACTIVE RESOURCE: ANDREA ELIAS REASON FOR APPOINTMENT 1. POST BILATERAL DIAGNOSTIC LUMBAR FACET BLOCK #1 L4-L5, L5-S1 HISTORY OF PRESENT ILLNESS GENERAL: HERE FOR POST PROCEDURE FOLLOW-UP. HAD BILATERAL L4-5, L5-S1 LUMBAR DIAGNOSTIC FACET BLOCK ON 07/12/2020. HOURLY DIARY IS REVIEWED AND SHOWS GREATER THAN 80% REDUCTION IN PAIN FOR SEVERAL DAYS. PAIN IS BEGINNING TO RETURN TO BASELINE. DISCUSSED DIAGNOSTIC TESTING #2 AND PROCEEDING WITH RADIOFREQUENCY.-. FALL RISK SCREENING: SCREENING : NO FALLS REPORTED IN THE LAST YEAR. PAIN SCREENING: PATIENT HAS A COMPLAINT OF ACUTE OR CHRONIC PAIN :YES LOCATION OF PAIN:LOW BACK INTENSITY OF PAIN (SCALE OF 1 TO 10):4 WHAT DOES YOUR PAIN FEEL LIKE:CONTINOUS DURATION:CONSTANT PAIN IS INCREASED BY:ACTIVITIES, PROLONGED STANDING, OTHERS WALKING PAIN IS DECREASED BY:OTHERS RESTING AND HEAT AND ICE NURSING NOTE: -. PAIN CENTER INTAKE QUESTIONS: DO YOU HAVE A HISTORY OF MRSA? :NO DO YOU TAKE A BLOOD THINNERS? :YES ELMIRON DO YOU HAVE ANY BLEEDING DISORDERS? :NO ANY NEW NUMBNESS OR WEAKNESS IN YOUR LEGS OR ARMS? :NO ANY PACEMAKER,DEFIBRILLATOR, OR DORSAL COLUMN STIMULATOR? :NO DO YOU HAVE ANY RASHES OR OPEN SORES? :NO ARE YOU ALLERGIC TO IV DYE? :NO ARE YOU DIABETIC? :NO ANY NEW PROBLEMS WITH YOUR MEDICATIONS? :NO HAVE YOU RECEIVED A VACCINE IN THE PAST 30 DAYS? :NO DO YOU PLAN TO RECEIVE A VACCINE IN THE NEXT 21 DAYS? :NO DO YOU NEED ANY PRESCRIPTION? :NO DO YOU TAKE ANY IMMUNOSUPPRESSIVE MEDICATIONS? :YES LEFLUNOMIDE AND ENBREL SURECLICK IS THERE A CHANCE YOU COULD BE ? :NO ARE YOU BREAST FEEDING? :NO CURRENT MEDICATIONS TAKING VITAMIN D 2000 UNIT CAPSULE 1 TABLET ORALLY ONCE A DAY TAKING CANE . MISCELLANEOUS QUAD CANE _ QD R27 TAKING CALCIUM 600 + D 600-400 MG-UNIT TABLET 1 TABLET ORALLY ONCE A DAY TAKING ELMIRON 100 MG CAPSULE 1 CAPSULE ON AN EMPTY STOMACH 1 TABLET THREE A DAY TAKING LEFLUNOMIDE 20 MG TABLET 1 TABLET ORALLY ONCE A DAY TAKING ENBREL SURECLICK 50 MG/ML SOLUTION AUTO-INJECTOR DIRECTED SUBCUTANEOUS ONCE A WEEK TAKING CYANOCOBALAMIN 500 MCG TABLET 1 TABLET ORALLY 1 EVERY 5 DAYS TAKING CARAFATE 1 GM TABLET 1 TABLET ON AN EMPTY STOMACH ORALLY AC TID TAKING ATORVASTATIN CALCIUM 20 MG TABLET 1 TABLET ORALLY ONCE A DAY TAKING FISH OIL 1000 MG CAPSULE 1 CAPSULE ORALLY ONCE A DAY TAKING ESCITALOPRAM OXALATE 10 MG TABLET 15MG 1.5 TABLET ORALLY ONCE A DAY TAKING ESOMEPRAZOLE MAGNESIUM 40 MG CAPSULE DELAYED RELEASE 1 CAPSULE ORALLY AC BID TAKING CARISOPRODOL 350 MG TABLET 1 TABLET NEEDED ORALLY TID PRN, MDD 3 TAKING HYDROCODONE-ACETAMINOPHEN 5-325 MG TABLET 1 TABLET NEEDED ORALLY TID PRN MDD = 3 MEDICATION LIST REVIEWED AND RECONCILED WITH THE PATIENT PAST MEDICAL HISTORY RA/OSTEOARTHRITIS/FIBROMYALGIA NICOTINE ADDICTION-08/2011 FEV1 2.5L (101%)/RATIO 97%-1 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 GERD/DYSPEPSIA-06/2016 NORMAL EGD/COLON/SB CAPSULE-R HYPERLIPIDEMIA 2B ENDOMETRIOSIS 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 SPENCER 2008 FOLLOWS WITH WOMAN TO WOMAN HISTORY OF TUBULAR ADENOMA-NORMAL COLONOSCOPY APRIL 2009 NORMAL COLONOSCOPY C - RANDOM BIOPSIES-[place] COLONOSCOPY 07/18/16 REINDL CERVICAL DJD STATUS POST MULTILEVEL FUSION-01/2010 MRI STABLE ACDF C BASELINE DJD ATROPHIC VAGINITIS OSTEOPENIA VITAMIN D DEFICIENCY CHRONIC SINUSITIS / NONE LATELY RECURRENT UTI / YEARS AGO CHRONIC DIARRHEA STATUS POST LAPAROSCOPIC CHOLECYSTECTOMY JULY 2009//[id number] CHRONIC DRY EYES MEMORY LOSS 2 INSOMNIA, WORK STRESS-12/2011 NORMAL MRI BRAIN S AND NORMAL WORKUP LUMBAR DJD-L2/3 BULGE C L IF HNP C L L2 COMPRESSION, L3/4 SEVERE CCS C B L3 COMPRESSION BY 03/2017 MRI LONG-TERM DISABILITY-TAKEN OOW 08/05/[address] BARAJAS, 01/2014 FILLED OUT LTD PAPERWORK FOR GUARDIAN-PATIENT DEFERRED WCE INSOMNIA, COOMORBID ANXIETY OCULAR SURFACE DISEASE ALLERGIES METHOTREXATE (ANTI-RHEUMATIC): MIGRANES - SIDE EFFECTS CYMBALTA: RACING PLUSE, SHAKES - ALLERGY WELLBUTRIN: PALPITATIONS, SEVERE - ALLERGY SULFA (FOR ALLERGY USE ONLY): NAUSEA/VOMITING - ALLERGY LYRICA: PALPITATIONS - ALLERGY CELEXA: PALPITATIONS - SIDE EFFECTS ORENCIA: ANAPHYLAXIS - ALLERGY TOPICAL ALOE VERA: SEVERE ITCHING CANNOT TOLERATE ASA BASED PRODUCTS/ NSAIDS: HX STOMACH BLEED - CONTRAINDICATION SURGICAL HISTORY LAPAROSCOPY X2 CHRISTINE BTL 1982 TVH [address] SPENCER 2008 VAGINAL CUFF BX. IRMA CHANDLER NP 03/07 CHOLECYSTECTOMY 06/09 ACDF-C4-T1 10/06 R BREAST [id number] 09/2010 ABOVE L CTR- FISH 10/27/14 L4-L5 FUSION/LAMINECTOMY 09/2013 NORMAL EGD/COLON/SB CAPSULE-R 06/2016 FUSION C5 C6 1999 HYSTERECTOMY 1988 BENIGN MOLE REMOVAL 2018 SOCIAL HISTORY GENERAL: TOBACCO USE ARE YOU A:CURRENT SMOKER ARE YOU INTERESTED IN QUITTING?THINKING ABOUT QUITTING COUNSELED THE PATIENT ON SMOKING CESSATION, EDUCATION [id number]/30/2021 HOW MANY CIGARETTES A DAY DO YOU SMOKE?5 OR LESS HOW SOON AFTER YOU WAKE UP DO YOU SMOKE YOUR FIRST CIGARETTE?AFTER 60 MIN HOW OFTEN DO YOU SMOKE CIGARETTES?EVERY DAY PATIENT COUNSELED ON THE DANGERS OF TOBACCO USE AND URGED TO QUIT:05/26/2020 VAPORNO E-CIGARETTENO LATEX QUESTIONNAIRE LATEX ALLERGY : HAVE YOU EVER DEVELOPED ANY TYPE OF REACTION AFTER HANDLING LATEX PRODUCTS SUCH RUBBER GLOVES, CONDOMS, DIAPHRAGMS, BALLOONS, SOCKS, OR UNDERWEAR?NO LATEX ALLERGY : HAVE YOU EVER DEVELOPED ANY TYPE OF REACTION DURING OR AFTER DENTAL APPOINTMENT, VAGINAL/RECTAL EXAMINATION, SURGICAL PROCEDURE, OR ANY OTHER EXPOSURE?NO LATEX RISK : HAVE YOU EVER HAD ANY DIFFICULTY BREATHING OR HIVES AFTER EATING OR HANDLING ANY FRUITS, OR VEGETABLES; SUCH KIWI, BANANAS, STONE FRUITS, OR CHESTNUTSNO LATEX RISK : DO YOU HAVE A PREVIOUS PERSONAL HISTORY OF MORE THAN NINE SURGERIES, SPINA BIFIDA, OR REPEATED CATHERIZATIONS? YES LATEX RISK : ARE YOU FREQUENTLY EXPOSED TO LATEX PRODUCTS IN YOUR OCCUPATION?NO DATE ASKED : 07/27/2020 ALCOHOL USE: NO, ONCE EVERY 4 MONTH. ALCOHOL SCREENING DID YOU HAVE A DRINK CONTAINING ALCOHOL IN THE PAST YEAR?YES HOW OFTEN DID YOU HAVE A DRINK CONTAINING ALCOHOL IN THE PAST YEAR?MONTHLY OR LESS (1 POINT) POINTS1 INTERPRETATIONNEGATIVE RECREATIONAL DRUG USE DRUG USE?NO CAFFEINE CAFFEINE USE?YES 2-3 DAILY SEXUAL HX HAD SEX IN THE LAST 12 MONTHS (VAGINAL, ORAL, OR ANAL)?NO HAVE YOU EVER HAD AN STD?NO HIV / HEP-C SCREENING HIV TEST OFFERED TO PATIENT:YES DATE OFFERED:06/28/2017 TEST ACCEPTED:NO HEP-C TEST OFFERED TO PATIENT:YES DATE OFFERED:06/28/2017 REASON:PATIENT DECLINED TEST ACCEPTED:NO REASON:PATIENT DECLINED CONFUCIANIST [id number] NONE NO EVANGELICAL BELIEFS THAT WOULD IMPACT HEALTH CARE. LANGUAGE LANGUAGES SPOKEN:[id number] EDUCATION LEVEL OF EDUCATION:HIGH SCHOOL GED LEARNING BARRIERS / SPECIAL NEEDS CHANGE FROM LAST VISIT?NO BARRIERS TO LEARNING?NO HEARING IMPAIRED?NO TINITUS VISION IMPAIRED?YES :CORRECTIVE LENSES COGNITIVELY IMPAIRED?NO READINESS TO LEARN?YES LEARNING PREFERENCES?NO LEARNING CAPABILITIES PRESENT?YES EMOTIONAL BARRIERS?NO SPECIAL DEVICES?YES :CANE NEEDED FEATHER EDGER NEEDED?NO DOMESTIC VIOLENCE DO YOU FEEL SAFE IN YOUR ENVIRONMENT?YES OCCUPATION: DISABLED. DIET: AVOIDS GREASY, FRIED FOODS, DAIRY.TRIES TO EAT SMALLER PORTIONS. EXERCISE: LOWER BACK EXERCISES, WALKS TOLERATED. MARITAL STATUS: .. OTHERS AT HOME: DAUGHTER. - PFS REFERRAL NEEDED?NO CLERGY REFERRAL NEEDED?NO PUBLIC HEALTH REFERRAL NEEDED?NO HAS THE PATIENT BEEN EDUCATED REGARDING HIS/HER PLAN OF CARE?YES HAS THE PATIENT BEEN EDUCATED REGARDING PAIN, THE RISK FOR PAIN, THE IMPORTANCE OF EFFECTIVE PAIN MANAGEMENT, AND THE PAIN ASSESSMENT PROCESS?YES ADVANCE DIRECTIVE ADVANCE DIRECTIVE DISCUSSED WITH PATIENT:YES PT STATES SHE HAS A HEALTH CARE PROXY-RAH ROSARIO [phone] HOSPITALIZATION/MAJOR DIAGNOSTIC PROCEDURE SURGICAL RELATED REVIEW OF SYSTEMS CONSTITUTIONAL: ANY RECENT FEVER NO . CHILLS NO . WEIGHT CHANGE OF UNKNOWN REASONS NO . GASTROENTEROLOGY: NEW UNEXPLAINABLE CHANGES IN BOWEL CONTROL NO . CONSTIPATION NO . GENITOURINARY: ANY NEW CHANGE IN BLADDER CONTROL? NO . NEUROLOGY: NEW ONSET DIZZINESS OR NEUROLOGICAL CHANGES NOT MENTIONED NO . NEW NUMBNESS OR PAIN PATTERNS NOT MENTIONED AND PERTINENT TO TODAY'S VISIT NO . CARDIOLOGY: NEW CHEST PRESSURE NO . PATIENT DENIES NO . RESPIRATORY: UNEXPLAINABLE COUGH NO . NEW SHORTNESS OF BREATH NO . VITAL SIGNS WT 125 LBS, HT 64 IN, BMI 21.45 INDEX, BP 126/55 MM HG, HR 85 /MIN, RR 18 /MIN, TEMP 98.3 F, OXYGEN SAT % 96%, SAFE IN ENV? (Y/N) YEST.CARYN CORLEY. EXAMINATION GENERAL EXAMINATION: GENERAL AWAKE,ALERT ,PLEASANT . PSYCH AFFECT NORMAL . LUNGS: LUNG LINDSEY ARE CLEAR TO AUSCULTATION BILATERALLY. GOOD MOVEMENT OF AIR . HEART: S1, S2 IN A REGULAR RATE AND RHYTHM. NO SIGNIFICANT MURMURS, RUBS OR GALLOPS NOTED . MUSCULOSKELETAL: MUSCLE STRENGTH TESTING 5/5 BILATERAL LOWER EXTREMITIES. LUMBAR: PALPATION: + FOR PAIN OVER L/S SPINE. + FOR PAIN OVER L/S PARASPINALS WELL-HEALED SURGICAL SCAR L/S AXIS. DIAGNOSTIC TESTS REVIEWEDMRI L/S SPINE . 06/2019. ASSESSMENTS SPONDYLOSIS WITHOUT MYELOPATHY OR RADICULOPATHY, LUMBAR REGION - M47.816 (PRIMARY) OTHER CHRONIC PAIN - G89.29 POST LAMINECTOMY SYNDROME - M96.1 TREATMENT SPONDYLOSIS WITHOUT MYELOPATHY OR RADICULOPATHY, LUMBAR REGION NOTES: BILATERAL DIAGNOSTIC LUMBAR FACET BLOCK L4-5,L5-S1 PRINTED AND REVIEWED PRE PROCEDURE WITH PATIENT EZEKIEL CORLEY. OTHER CHRONIC PAIN PAIN PROCEDURE LOGDATE OF PROCEDURE1PROCEDURE:BILATERAL DIAGNOSTIC LUMBAR FACET BLOCK #1 L4-L5,L5-S4HOADHD OF PRE SEDATE0/0RESULT:GREATER THAN 80% REDUCTION IN PAIN FOR SEVERAL HOURS POSTPROCEDURESLUIS SANTOS 07/28/2020 5:14:14 PM > ANDREA, CAN YOU PLEASE PUT THE PROCEDURE RESULTS IN THIS PROCEDURE LOG? THANKS. PROCEDURE CODES FA211 ESTABILISHED PATIENT [facility] CHARGE DISPOSITION & COMMUNICATION FOLLOW UP POST PROCEDURE (REASON: BILATERAL DIAGNOSTIC LUMBAR FACET BLOCK L4-5,L5-S1) ELECTRONICALLY SIGNED BY CARIDAD HENLEY ON 07/30/2020 AT 12:37 PM EDT DISCLAIMER : THIS IS A VISIT SUMMARY EXTRACTED FROM THE [employer] CHART. IT IS NOT A COPY OF THE [employer] PROGRESS NOTE. ZINA
--- NOTE | 2020-07-31 06:53 | ECWPNPC ---
PATIENT NAME: LOGAN CRAVEN : 1960 GENDER: FEMALE VISIT DATE: 07/27/2020 DISCHARGE DATE: 07/27/20 1058 VISIT LOCKED DATE TIME: PHYSICIAN: ANDREA ELIAS PHYSICIAN PAGER NO: ACTIVE RESOURCE: ANDREA EILAS REASON FOR APPOINTMENT 1. POST BILATERAL DIAGNOSTIC LUMBAR FACET BLOCK #1 L4-L5, L5-S1 HISTORY OF PRESENT ILLNESS GENERAL: HERE FOR POST PROCEDURE FOLLOW-UP. HAD BILATERAL L4-5, L5-S1 LUMBAR DIAGNOSTIC FACET BLOCK ON 07/12/2020. HOURLY DIARY IS REVIEWED AND SHOWS GREATER THAN 80% REDUCTION IN PAIN FOR SEVERAL DAYS. PAIN IS BEGINNING TO RETURN TO BASELINE. DISCUSSED DIAGNOSTIC TESTING #2 AND PROCEEDING WITH RADIOFREQUENCY.-. FALL RISK SCREENING: SCREENING : NO FALLS REPORTED IN THE LAST YEAR. PAIN SCREENING: PATIENT HAS A COMPLAINT OF ACUTE OR CHRONIC PAIN :YES LOCATION OF PAIN:LOW BACK INTENSITY OF PAIN (SCALE OF 1 TO 10):4 WHAT DOES YOUR PAIN FEEL LIKE:CONTINOUS DURATION:CONSTANT PAIN IS INCREASED BY:ACTIVITIES, PROLONGED STANDING, OTHERS WALKING PAIN IS DECREASED BY:OTHERS RESTING AND HEAT AND ICE NURSING NOTE: -. PAIN CENTER INTAKE QUESTIONS: DO YOU HAVE A HISTORY OF MRSA? :NO DO YOU TAKE A BLOOD THINNERS? :YES ELMIRON DO YOU HAVE ANY BLEEDING DISORDERS? :NO ANY NEW NUMBNESS OR WEAKNESS IN YOUR LEGS OR ARMS? :NO ANY PACEMAKER,DEFIBRILLATOR, OR DORSAL COLUMN STIMULATOR? :NO DO YOU HAVE ANY RASHES OR OPEN SORES? :NO ARE YOU ALLERGIC TO IV DYE? :NO ARE YOU DIABETIC? :NO ANY NEW PROBLEMS WITH YOUR MEDICATIONS? :NO HAVE YOU RECEIVED A VACCINE IN THE PAST 30 DAYS? :NO DO YOU PLAN TO RECEIVE A VACCINE IN THE NEXT 21 DAYS? :NO DO YOU NEED ANY PRESCRIPTION? :NO DO YOU TAKE ANY IMMUNOSUPPRESSIVE MEDICATIONS? :YES LEFLUNOMIDE AND ENBREL SURECLICK IS THERE A CHANCE YOU COULD BE ? :NO ARE YOU BREAST FEEDING? :NO CURRENT MEDICATIONS TAKING VITAMIN D 2000 UNIT CAPSULE 1 TABLET ORALLY ONCE A DAY TAKING CANE . MISCELLANEOUS QUAD CANE _ QD R27 TAKING CALCIUM 600 + D 600-400 MG-UNIT TABLET 1 TABLET ORALLY ONCE A DAY TAKING ELMIRON 100 MG CAPSULE 1 CAPSULE ON AN EMPTY STOMACH 1 TABLET THREE A DAY TAKING LEFLUNOMIDE 20 MG TABLET 1 TABLET ORALLY ONCE A DAY TAKING ENBREL SURECLICK 50 MG/ML SOLUTION AUTO-INJECTOR DIRECTED SUBCUTANEOUS ONCE A WEEK TAKING CYANOCOBALAMIN 500 MCG TABLET 1 TABLET ORALLY 1 EVERY 5 DAYS TAKING CARAFATE 1 GM TABLET 1 TABLET ON AN EMPTY STOMACH ORALLY AC TID TAKING ATORVASTATIN CALCIUM 20 MG TABLET 1 TABLET ORALLY ONCE A DAY TAKING FISH OIL 1000 MG CAPSULE 1 CAPSULE ORALLY ONCE A DAY TAKING ESCITALOPRAM OXALATE 10 MG TABLET 15MG 1.5 TABLET ORALLY ONCE A DAY TAKING ESOMEPRAZOLE MAGNESIUM 40 MG CAPSULE DELAYED RELEASE 1 CAPSULE ORALLY AC BID TAKING CARISOPRODOL 350 MG TABLET 1 TABLET NEEDED ORALLY TID PRN, MDD 3 TAKING HYDROCODONE-ACETAMINOPHEN 5-325 MG TABLET 1 TABLET NEEDED ORALLY TID PRN MDD = 3 MEDICATION LIST REVIEWED AND RECONCILED WITH THE PATIENT PAST MEDICAL HISTORY RA/OSTEOARTHRITIS/FIBROMYALGIA NICOTINE ADDICTION-08/2011 FEV1 2.5L (101%)/RATIO 97%-1 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 GERD/DYSPEPSIA-06/2016 NORMAL EGD/COLON/SB CAPSULE-R HYPERLIPIDEMIA 2B ENDOMETRIOSIS 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 SPENCER 2008 FOLLOWS WITH WOMAN TO WOMAN HISTORY OF TUBULAR ADENOMA-NORMAL COLONOSCOPY APRIL 2009 NORMAL COLONOSCOPY C - RANDOM BIOPSIES-[place] COLONOSCOPY 07/18/16 REINDL CERVICAL DJD STATUS POST MULTILEVEL FUSION-01/2010 MRI STABLE ACDF C BASELINE DJD ATROPHIC VAGINITIS OSTEOPENIA VITAMIN D DEFICIENCY CHRONIC SINUSITIS / NONE LATELY RECURRENT UTI / YEARS AGO CHRONIC DIARRHEA STATUS POST LAPAROSCOPIC CHOLECYSTECTOMY JULY 2009//[id number] CHRONIC DRY EYES MEMORY LOSS 2 INSOMNIA, WORK STRESS-12/2011 NORMAL MRI BRAIN S AND NORMAL WORKUP LUMBAR DJD-L2/3 BULGE C L IF HNP C L L2 COMPRESSION, L3/4 SEVERE CCS C B L3 COMPRESSION BY 03/2017 MRI LONG-TERM DISABILITY-TAKEN OOW 08/05/[address] BARAJAS, 01/2014 FILLED OUT LTD PAPERWORK FOR GUARDIAN-PATIENT DEFERRED WCE INSOMNIA, COOMORBID ANXIETY OCULAR SURFACE DISEASE ALLERGIES METHOTREXATE (ANTI-RHEUMATIC): MIGRANES - SIDE EFFECTS CYMBALTA: RACING PLUSE, SHAKES - ALLERGY WELLBUTRIN: PALPITATIONS, SEVERE - ALLERGY SULFA (FOR ALLERGY USE ONLY): NAUSEA/VOMITING - ALLERGY LYRICA: PALPITATIONS - ALLERGY CELEXA: PALPITATIONS - SIDE EFFECTS ORENCIA: ANAPHYLAXIS - ALLERGY TOPICAL ALOE VERA: SEVERE ITCHING CANNOT TOLERATE ASA BASED PRODUCTS/ NSAIDS: HX STOMACH BLEED - CONTRAINDICATION SURGICAL HISTORY LAPAROSCOPY X2 CHRISTINE BTL 1982 TVH [address] SPENCER 2008 VAGINAL CUFF BX. IRMA CHANDLER NP 03/07 CHOLECYSTECTOMY 06/09 ACDF-C4-T1 10/06 R BREAST [id number]-[id number]-KEELQC 09/2010 ABOVE L CTR- FISH 10/27/14 L4-L5 FUSION/LAMINECTOMY 09/2013 NORMAL EGD/COLON/SB CAPSULE-R 06/2016 FUSION C5 C6 1999 HYSTERECTOMY 1988 BENIGN MOLE REMOVAL 2018 SOCIAL HISTORY GENERAL: TOBACCO USE ARE YOU A:CURRENT SMOKER ARE YOU INTERESTED IN QUITTING?THINKING ABOUT QUITTING COUNSELED THE PATIENT ON SMOKING CESSATION, EDUCATION [id number]/30/2021 HOW MANY CIGARETTES A DAY DO YOU SMOKE?5 OR LESS HOW SOON AFTER YOU WAKE UP DO YOU SMOKE YOUR FIRST CIGARETTE?AFTER 60 MIN HOW OFTEN DO YOU SMOKE CIGARETTES?EVERY DAY PATIENT COUNSELED ON THE DANGERS OF TOBACCO USE AND URGED TO QUIT:05/26/2020 VAPORNO E-CIGARETTENO LATEX QUESTIONNAIRE LATEX ALLERGY : HAVE YOU EVER DEVELOPED ANY TYPE OF REACTION AFTER HANDLING LATEX PRODUCTS SUCH RUBBER GLOVES, CONDOMS, DIAPHRAGMS, BALLOONS, SOCKS, OR UNDERWEAR?NO LATEX ALLERGY : HAVE YOU EVER DEVELOPED ANY TYPE OF REACTION DURING OR AFTER DENTAL APPOINTMENT, VAGINAL/RECTAL EXAMINATION, SURGICAL PROCEDURE, OR ANY OTHER EXPOSURE?NO LATEX RISK : HAVE YOU EVER HAD ANY DIFFICULTY BREATHING OR HIVES AFTER EATING OR HANDLING ANY FRUITS, OR VEGETABLES; SUCH KIWI, BANANAS, STONE FRUITS, OR CHESTNUTSNO LATEX RISK : DO YOU HAVE A PREVIOUS PERSONAL HISTORY OF MORE THAN NINE SURGERIES, SPINA BIFIDA, OR REPEATED CATHERIZATIONS? YES LATEX RISK : ARE YOU FREQUENTLY EXPOSED TO LATEX PRODUCTS IN YOUR OCCUPATION?NO DATE ASKED : 07/27/2020 ALCOHOL USE: NO, ONCE EVERY 4 MONTH. ALCOHOL SCREENING DID YOU HAVE A DRINK CONTAINING ALCOHOL IN THE PAST YEAR?YES HOW OFTEN DID YOU HAVE A DRINK CONTAINING ALCOHOL IN THE PAST YEAR?MONTHLY OR LESS (1 POINT) POINTS1 INTERPRETATIONNEGATIVE RECREATIONAL DRUG USE DRUG USE?NO CAFFEINE CAFFEINE USE?YES 2-3 DAILY SEXUAL HX HAD SEX IN THE LAST 12 MONTHS (VAGINAL, ORAL, OR ANAL)?NO HAVE YOU EVER HAD AN STD?NO HIV / HEP-C SCREENING HIV TEST OFFERED TO PATIENT:YES DATE OFFERED:06/28/2017 TEST ACCEPTED:NO HEP-C TEST OFFERED TO PATIENT:YES DATE OFFERED:06/28/2017 REASON:PATIENT DECLINED TEST ACCEPTED:NO REASON:PATIENT DECLINED CHRISTIAN [id number] NONE NO PRESYBETERIAN BELIEFS THAT WOULD IMPACT HEALTH CARE. LANGUAGE LANGUAGES SPOKEN:OCCITAN EDUCATION LEVEL OF EDUCATION:HIGH SCHOOL GED LEARNING BARRIERS / SPECIAL NEEDS CHANGE FROM LAST VISIT?NO BARRIERS TO LEARNING?NO HEARING IMPAIRED?NO TINITUS VISION IMPAIRED?YES :CORRECTIVE LENSES COGNITIVELY IMPAIRED?NO READINESS TO LEARN?YES LEARNING PREFERENCES?NO LEARNING CAPABILITIES PRESENT?YES EMOTIONAL BARRIERS?NO SPECIAL DEVICES?YES :CANE NEEDED WELDING MACHINE OPERATOR HELPER GAS NEEDED?NO DOMESTIC VIOLENCE DO YOU FEEL SAFE IN YOUR ENVIRONMENT?YES OCCUPATION: DISABLED. DIET: AVOIDS GREASY, FRIED FOODS, DAIRY.TRIES TO EAT SMALLER PORTIONS. EXERCISE: LOWER BACK EXERCISES, WALKS TOLERATED. MARITAL STATUS: .. OTHERS AT HOME: DAUGHTER. - PFS REFERRAL NEEDED?NO CLERGY REFERRAL NEEDED?NO PUBLIC HEALTH REFERRAL NEEDED?NO HAS THE PATIENT BEEN EDUCATED REGARDING HIS/HER PLAN OF CARE?YES HAS THE PATIENT BEEN EDUCATED REGARDING PAIN, THE RISK FOR PAIN, THE IMPORTANCE OF EFFECTIVE PAIN MANAGEMENT, AND THE PAIN ASSESSMENT PROCESS?YES ADVANCE DIRECTIVE ADVANCE DIRECTIVE DISCUSSED WITH PATIENT:YES PT STATES SHE HAS A HEALTH CARE PROXY-RAH ROSARIO [phone] HOSPITALIZATION/MAJOR DIAGNOSTIC PROCEDURE SURGICAL RELATED REVIEW OF SYSTEMS CONSTITUTIONAL: ANY RECENT FEVER NO . CHILLS NO . WEIGHT CHANGE OF UNKNOWN REASONS NO . GASTROENTEROLOGY: NEW UNEXPLAINABLE CHANGES IN BOWEL CONTROL NO . CONSTIPATION NO . GENITOURINARY: ANY NEW CHANGE IN BLADDER CONTROL? NO . NEUROLOGY: NEW ONSET DIZZINESS OR NEUROLOGICAL CHANGES NOT MENTIONED NO . NEW NUMBNESS OR PAIN PATTERNS NOT MENTIONED AND PERTINENT TO TODAY'S VISIT NO . CARDIOLOGY: NEW CHEST PRESSURE NO . PATIENT DENIES NO . RESPIRATORY: UNEXPLAINABLE COUGH NO . NEW SHORTNESS OF BREATH NO . VITAL SIGNS WT 125 LBS, HT 64 IN, BMI 21.45 INDEX, BP 126/55 MM HG, HR 85 /MIN, RR 18 /MIN, TEMP 98.3 F, OXYGEN SAT % 96%, SAFE IN ENV? (Y/N) YEST.CARYN CORLEY. EXAMINATION GENERAL EXAMINATION: GENERAL AWAKE,ALERT ,PLEASANT . PSYCH AFFECT NORMAL . LUNGS: LUNG LINDSEY ARE CLEAR TO AUSCULTATION BILATERALLY. GOOD MOVEMENT OF AIR . HEART: S1, S2 IN A REGULAR RATE AND RHYTHM. NO SIGNIFICANT MURMURS, RUBS OR GALLOPS NOTED . MUSCULOSKELETAL: MUSCLE STRENGTH TESTING 5/5 BILATERAL LOWER EXTREMITIES. LUMBAR: PALPATION: + FOR PAIN OVER L/S SPINE. + FOR PAIN OVER L/S PARASPINALS WELL-HEALED SURGICAL SCAR L/S AXIS. DIAGNOSTIC TESTS REVIEWEDMRI L/S SPINE . 06/2019. ASSESSMENTS SPONDYLOSIS WITHOUT MYELOPATHY OR RADICULOPATHY, LUMBAR REGION - M47.816 (PRIMARY) OTHER CHRONIC PAIN - G89.29 POST LAMINECTOMY SYNDROME - M96.1 TREATMENT SPONDYLOSIS WITHOUT MYELOPATHY OR RADICULOPATHY, LUMBAR REGION NOTES: BILATERAL DIAGNOSTIC LUMBAR FACET BLOCK L4-5,L5-S1 PRINTED AND REVIEWED PRE PROCEDURE WITH PATIENT EZEKIEL CORLEY. OTHER CHRONIC PAIN PAIN PROCEDURE LOGDATE OF PROCEDURE1PROCEDURE:BILATERAL DIAGNOSTIC LUMBAR FACET BLOCK #1 L4-L5,L5-H4IBWMDK OF PRE SEDATE0/0RESULT:GREATER THAN 80% REDUCTION IN PAIN FOR SEVERAL HOURS POSTPROCEDURESLUIS SANTOS 07/28/2020 5:14:14 PM > ANDREA, CAN YOU PLEASE PUT THE PROCEDURE RESULTS IN THIS PROCEDURE LOG? THANKS. PROCEDURE CODES FA211 ESTABILISHED PATIENT [facility] FACILITY CHARGE DISPOSITION & COMMUNICATION FOLLOW UP POST PROCEDURE (REASON: BILATERAL DIAGNOSTIC LUMBAR FACET BLOCK L4-5,L5-S1) ELECTRONICALLY SIGNED BY CARIDAD HENLEY ON 07/30/2020 AT 12:37 PM EDT DISCLAIMER : THIS IS A VISIT SUMMARY EXTRACTED FROM THE [employer] CHART. IT IS NOT A COPY OF THE [employer] PROGRESS NOTE. ZINA
--- NOTE | 2020-07-31 06:55 | ECWPNPC ---
PATIENT NAME: LOGAN CRAVEN : 1960 GENDER: FEMALE VISIT DATE: 07/27/2020 DISCHARGE DATE: 07/27/20 1058 VISIT LOCKED DATE TIME: PHYSICIAN: ANDREA ELIAS PHYSICIAN PAGER NO: ACTIVE RESOURCE: ANDREA ELIAS REASON FOR APPOINTMENT 1. POST BILATERAL DIAGNOSTIC LUMBAR FACET BLOCK #1 L4-L5, L5-S1 HISTORY OF PRESENT ILLNESS GENERAL: HERE FOR POST PROCEDURE FOLLOW-UP. HAD BILATERAL L4-5, L5-S1 LUMBAR DIAGNOSTIC FACET BLOCK ON 07/12/2020. HOURLY DIARY IS REVIEWED AND SHOWS GREATER THAN 80% REDUCTION IN PAIN FOR SEVERAL DAYS. PAIN IS BEGINNING TO RETURN TO BASELINE. DISCUSSED DIAGNOSTIC TESTING #2 AND PROCEEDING WITH RADIOFREQUENCY.-. FALL RISK SCREENING: SCREENING : NO FALLS REPORTED IN THE LAST YEAR. PAIN SCREENING: PATIENT HAS A COMPLAINT OF ACUTE OR CHRONIC PAIN :YES LOCATION OF PAIN:LOW BACK INTENSITY OF PAIN (SCALE OF 1 TO 10):4 WHAT DOES YOUR PAIN FEEL LIKE:CONTINOUS DURATION:CONSTANT PAIN IS INCREASED BY:ACTIVITIES, PROLONGED STANDING, OTHERS WALKING PAIN IS DECREASED BY:OTHERS RESTING AND HEAT AND ICE NURSING NOTE: -. PAIN CENTER INTAKE QUESTIONS: DO YOU HAVE A HISTORY OF MRSA? :NO DO YOU TAKE A BLOOD THINNERS? :YES ELMIRON DO YOU HAVE ANY BLEEDING DISORDERS? :NO ANY NEW NUMBNESS OR WEAKNESS IN YOUR LEGS OR ARMS? :NO ANY PACEMAKER,DEFIBRILLATOR, OR DORSAL COLUMN STIMULATOR? :NO DO YOU HAVE ANY RASHES OR OPEN SORES? :NO ARE YOU ALLERGIC TO IV DYE? :NO ARE YOU DIABETIC? :NO ANY NEW PROBLEMS WITH YOUR MEDICATIONS? :NO HAVE YOU RECEIVED A VACCINE IN THE PAST 30 DAYS? :NO DO YOU PLAN TO RECEIVE A VACCINE IN THE NEXT 21 DAYS? :NO DO YOU NEED ANY PRESCRIPTION? :NO DO YOU TAKE ANY IMMUNOSUPPRESSIVE MEDICATIONS? :YES LEFLUNOMIDE AND ENBREL SURECLICK IS THERE A CHANCE YOU COULD BE ? :NO ARE YOU BREAST FEEDING? :NO CURRENT MEDICATIONS TAKING VITAMIN D 2000 UNIT CAPSULE 1 TABLET ORALLY ONCE A DAY TAKING CANE . MISCELLANEOUS QUAD CANE _ QD R27 TAKING CALCIUM 600 + D 600-400 MG-UNIT TABLET 1 TABLET ORALLY ONCE A DAY TAKING ELMIRON 100 MG CAPSULE 1 CAPSULE ON AN EMPTY STOMACH 1 TABLET THREE A DAY TAKING LEFLUNOMIDE 20 MG TABLET 1 TABLET ORALLY ONCE A DAY TAKING ENBREL SURECLICK 50 MG/ML SOLUTION AUTO-INJECTOR DIRECTED SUBCUTANEOUS ONCE A WEEK TAKING CYANOCOBALAMIN 500 MCG TABLET 1 TABLET ORALLY 1 EVERY 5 DAYS TAKING CARAFATE 1 GM TABLET 1 TABLET ON AN EMPTY STOMACH ORALLY AC TID TAKING ATORVASTATIN CALCIUM 20 MG TABLET 1 TABLET ORALLY ONCE A DAY TAKING FISH OIL 1000 MG CAPSULE 1 CAPSULE ORALLY ONCE A DAY TAKING ESCITALOPRAM OXALATE 10 MG TABLET 15MG 1.5 TABLET ORALLY ONCE A DAY TAKING ESOMEPRAZOLE MAGNESIUM 40 MG CAPSULE DELAYED RELEASE 1 CAPSULE ORALLY AC BID TAKING CARISOPRODOL 350 MG TABLET 1 TABLET NEEDED ORALLY TID PRN, MDD 3 TAKING HYDROCODONE-ACETAMINOPHEN 5-325 MG TABLET 1 TABLET NEEDED ORALLY TID PRN MDD = 3 MEDICATION LIST REVIEWED AND RECONCILED WITH THE PATIENT PAST MEDICAL HISTORY RA/OSTEOARTHRITIS/FIBROMYALGIA NICOTINE ADDICTION-08/2011 FEV1 2.5L (101%)/RATIO 97%-1 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 GERD/DYSPEPSIA-06/2016 NORMAL EGD/COLON/SB CAPSULE-R HYPERLIPIDEMIA 2B ENDOMETRIOSIS 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 SPENCER 2008 FOLLOWS WITH WOMAN TO WOMAN HISTORY OF TUBULAR ADENOMA-NORMAL COLONOSCOPY APRIL 2009 NORMAL COLONOSCOPY C - RANDOM BIOPSIES-[place] COLONOSCOPY 07/18/16 REINDL CERVICAL DJD STATUS POST MULTILEVEL FUSION-01/2010 MRI STABLE ACDF C BASELINE DJD ATROPHIC VAGINITIS OSTEOPENIA VITAMIN D DEFICIENCY CHRONIC SINUSITIS / NONE LATELY RECURRENT UTI / YEARS AGO CHRONIC DIARRHEA STATUS POST LAPAROSCOPIC CHOLECYSTECTOMY JULY 2009//[id number] CHRONIC DRY EYES MEMORY LOSS 2 INSOMNIA, WORK STRESS-12/2011 NORMAL MRI BRAIN S AND NORMAL WORKUP LUMBAR DJD-L2/3 BULGE C L IF HNP C L L2 COMPRESSION, L3/4 SEVERE CCS C B L3 COMPRESSION BY 03/2017 MRI LONG-TERM DISABILITY-TAKEN OOW 08/05/13 [address] BARAJAS, 01/2014 FILLED OUT LTD PAPERWORK FOR GUARDIAN-PATIENT DEFERRED WCE INSOMNIA, COOMORBID ANXIETY OCULAR SURFACE DISEASE ALLERGIES METHOTREXATE (ANTI-RHEUMATIC): MIGRANES - SIDE EFFECTS CYMBALTA: RACING PLUSE, SHAKES - ALLERGY WELLBUTRIN: PALPITATIONS, SEVERE - ALLERGY SULFA (FOR ALLERGY USE ONLY): NAUSEA/VOMITING - ALLERGY LYRICA: PALPITATIONS - ALLERGY CELEXA: PALPITATIONS - SIDE EFFECTS ORENCIA: ANAPHYLAXIS - ALLERGY TOPICAL ALOE VERA: SEVERE ITCHING CANNOT TOLERATE ASA BASED PRODUCTS/ NSAIDS: HX STOMACH BLEED - CONTRAINDICATION SURGICAL HISTORY LAPAROSCOPY X2 CHRISTINE BTL 1982 TVH [address] SPENCER 2008 VAGINAL CUFF BX. IRMA CHANDLER NP 03/07 CHOLECYSTECTOMY 06/09 ACDF-C4-T1 10/06 R BREAST [id number] 09/2010 ABOVE L CTR- FISH 10/27/14 L4-L5 FUSION/LAMINECTOMY 09/2013 NORMAL EGD/COLON/SB CAPSULE-R 06/2016 FUSION C5 C6 1999 HYSTERECTOMY 1988 BENIGN MOLE REMOVAL 2018 SOCIAL HISTORY GENERAL: TOBACCO USE ARE YOU A:CURRENT SMOKER ARE YOU INTERESTED IN QUITTING?THINKING ABOUT QUITTING COUNSELED THE PATIENT ON SMOKING CESSATION, EDUCATION [id number]/30/2021 HOW MANY CIGARETTES A DAY DO YOU SMOKE?5 OR LESS HOW SOON AFTER YOU WAKE UP DO YOU SMOKE YOUR FIRST CIGARETTE?AFTER 60 MIN HOW OFTEN DO YOU SMOKE CIGARETTES?EVERY DAY PATIENT COUNSELED ON THE DANGERS OF TOBACCO USE AND URGED TO QUIT:05/26/2020 VAPORNO E-CIGARETTENO LATEX QUESTIONNAIRE LATEX ALLERGY : HAVE YOU EVER DEVELOPED ANY TYPE OF REACTION AFTER HANDLING LATEX PRODUCTS SUCH RUBBER GLOVES, CONDOMS, DIAPHRAGMS, BALLOONS, SOCKS, OR UNDERWEAR?NO LATEX ALLERGY : HAVE YOU EVER DEVELOPED ANY TYPE OF REACTION DURING OR AFTER DENTAL APPOINTMENT, VAGINAL/RECTAL EXAMINATION, SURGICAL PROCEDURE, OR ANY OTHER EXPOSURE?NO LATEX RISK : HAVE YOU EVER HAD ANY DIFFICULTY BREATHING OR HIVES AFTER EATING OR HANDLING ANY FRUITS, OR VEGETABLES; SUCH KIWI, BANANAS, STONE FRUITS, OR CHESTNUTSNO LATEX RISK : DO YOU HAVE A PREVIOUS PERSONAL HISTORY OF MORE THAN NINE SURGERIES, SPINA BIFIDA, OR REPEATED CATHERIZATIONS? YES LATEX RISK : ARE YOU FREQUENTLY EXPOSED TO LATEX PRODUCTS IN YOUR OCCUPATION?NO DATE ASKED : 07/27/2020 ALCOHOL USE: NO, ONCE EVERY 4 MONTH. ALCOHOL SCREENING DID YOU HAVE A DRINK CONTAINING ALCOHOL IN THE PAST YEAR?YES HOW OFTEN DID YOU HAVE A DRINK CONTAINING ALCOHOL IN THE PAST YEAR?MONTHLY OR LESS (1 POINT) POINTS1 INTERPRETATIONNEGATIVE RECREATIONAL DRUG USE DRUG USE?NO CAFFEINE CAFFEINE USE?YES 2-3 DAILY SEXUAL HX HAD SEX IN THE LAST 12 MONTHS (VAGINAL, ORAL, OR ANAL)?NO HAVE YOU EVER HAD AN STD?NO HIV / HEP-C SCREENING HIV TEST OFFERED TO PATIENT:YES DATE OFFERED:06/28/2017 TEST ACCEPTED:NO HEP-C TEST OFFERED TO PATIENT:YES DATE OFFERED:06/28/2017 REASON:PATIENT DECLINED TEST ACCEPTED:NO REASON:PATIENT DECLINED BUDDHISM [id number] NONE NO HINDUISM BELIEFS THAT WOULD IMPACT HEALTH CARE. LANGUAGE LANGUAGES SPOKEN:SY[place] EDUCATION LEVEL OF EDUCATION:HIGH SCHOOL GED LEARNING BARRIERS / SPECIAL NEEDS CHANGE FROM LAST VISIT?NO BARRIERS TO LEARNING?NO HEARING IMPAIRED?NO TINITUS VISION IMPAIRED?YES :CORRECTIVE LENSES COGNITIVELY IMPAIRED?NO READINESS TO LEARN?YES LEARNING PREFERENCES?NO LEARNING CAPABILITIES PRESENT?YES EMOTIONAL BARRIERS?NO SPECIAL DEVICES?YES :CANE NEEDED PLATEN PRESS FEEDER NEEDED?NO DOMESTIC VIOLENCE DO YOU FEEL SAFE IN YOUR ENVIRONMENT?YES OCCUPATION: DISABLED. DIET: AVOIDS GREASY, FRIED FOODS, DAIRY.TRIES TO EAT SMALLER PORTIONS. EXERCISE: LOWER BACK EXERCISES, WALKS TOLERATED. MARITAL STATUS: .. OTHERS AT HOME: DAUGHTER. - PFS REFERRAL NEEDED?NO CLERGY REFERRAL NEEDED?NO PUBLIC HEALTH REFERRAL NEEDED?NO HAS THE PATIENT BEEN EDUCATED REGARDING HIS/HER PLAN OF CARE?YES HAS THE PATIENT BEEN EDUCATED REGARDING PAIN, THE RISK FOR PAIN, THE IMPORTANCE OF EFFECTIVE PAIN MANAGEMENT, AND THE PAIN ASSESSMENT PROCESS?YES ADVANCE DIRECTIVE ADVANCE DIRECTIVE DISCUSSED WITH PATIENT:YES PT STATES SHE HAS A HEALTH CARE PROXY-RAH ROSARIO [phone] HOSPITALIZATION/MAJOR DIAGNOSTIC PROCEDURE SURGICAL RELATED REVIEW OF SYSTEMS CONSTITUTIONAL: ANY RECENT FEVER NO . CHILLS NO . WEIGHT CHANGE OF UNKNOWN REASONS NO . GASTROENTEROLOGY: NEW UNEXPLAINABLE CHANGES IN BOWEL CONTROL NO . CONSTIPATION NO . GENITOURINARY: ANY NEW CHANGE IN BLADDER CONTROL? NO . NEUROLOGY: NEW ONSET DIZZINESS OR NEUROLOGICAL CHANGES NOT MENTIONED NO . NEW NUMBNESS OR PAIN PATTERNS NOT MENTIONED AND PERTINENT TO TODAY'S VISIT NO . CARDIOLOGY: NEW CHEST PRESSURE NO . PATIENT DENIES NO . RESPIRATORY: UNEXPLAINABLE COUGH NO . NEW SHORTNESS OF BREATH NO . VITAL SIGNS WT 125 LBS, HT 64 IN, BMI 21.45 INDEX, BP 126/55 MM HG, HR 85 /MIN, RR 18 /MIN, TEMP 98.3 F, OXYGEN SAT % 96%, SAFE IN ENV? (Y/N) YEST.CARYN CORLEY. EXAMINATION GENERAL EXAMINATION: GENERAL AWAKE,ALERT ,PLEASANT . PSYCH AFFECT NORMAL . LUNGS: LUNG LINDSEY ARE CLEAR TO AUSCULTATION BILATERALLY. GOOD MOVEMENT OF AIR . HEART: S1, S2 IN A REGULAR RATE AND RHYTHM. NO SIGNIFICANT MURMURS, RUBS OR GALLOPS NOTED . MUSCULOSKELETAL: MUSCLE STRENGTH TESTING 5/5 BILATERAL LOWER EXTREMITIES. LUMBAR: PALPATION: + FOR PAIN OVER L/S SPINE. + FOR PAIN OVER L/S PARASPINALS WELL-HEALED SURGICAL SCAR L/S AXIS. DIAGNOSTIC TESTS REVIEWEDMRI L/S SPINE . 06/2019. ASSESSMENTS SPONDYLOSIS WITHOUT MYELOPATHY OR RADICULOPATHY, LUMBAR REGION - M47.816 (PRIMARY) OTHER CHRONIC PAIN - G89.29 POST LAMINECTOMY SYNDROME - M96.1 TREATMENT SPONDYLOSIS WITHOUT MYELOPATHY OR RADICULOPATHY, LUMBAR REGION NOTES: BILATERAL DIAGNOSTIC LUMBAR FACET BLOCK L4-5,L5-S1 PRINTED AND REVIEWED PRE PROCEDURE WITH PATIENT EZEKIEL CORLEY. OTHER CHRONIC PAIN PAIN PROCEDURE LOGDATE OF PROCEDURE1PROCEDURE:BILATERAL DIAGNOSTIC LUMBAR FACET BLOCK #1 L4-L5,L5-N6XGMRSE OF PRE SEDATE0/0RESULT:GREATER THAN 80% REDUCTION IN PAIN FOR SEVERAL HOURS POSTPROCEDURESLUIS SANTOS 07/28/2020 5:14:14 PM > ANDREA, CAN YOU PLEASE PUT THE PROCEDURE RESULTS IN THIS PROCEDURE LOG? THANKS. PROCEDURE CODES FA211 ESTABILISHED PATIENT [facility] FACILITY CHARGE DISPOSITION & COMMUNICATION FOLLOW UP POST PROCEDURE (REASON: BILATERAL DIAGNOSTIC LUMBAR FACET BLOCK L4-5,L5-S1) ELECTRONICALLY SIGNED BY CARIDAD HENLEY ON 07/30/2020 AT 12:37 PM EDT DISCLAIMER : THIS IS A VISIT SUMMARY EXTRACTED FROM THE [employer] CHART. IT IS NOT A COPY OF THE [employer] PROGRESS NOTE. ZINA
--- NOTE | 2020-07-31 06:57 | ECWPNPC ---
PATIENT NAME: LOGAN CRAVEN : 1960 GENDER: FEMALE VISIT DATE: 07/27/2020 DISCHARGE DATE: 07/27/20 1058 VISIT LOCKED DATE TIME: PHYSICIAN: ANDREA ELIAS PHYSICIAN PAGER NO: ACTIVE RESOURCE: ANDREA ELIAS REASON FOR APPOINTMENT 1. POST BILATERAL DIAGNOSTIC LUMBAR FACET BLOCK #1 L4-L5, L5-S1 HISTORY OF PRESENT ILLNESS GENERAL: HERE FOR POST PROCEDURE FOLLOW-UP. HAD BILATERAL L4-5, L5-S1 LUMBAR DIAGNOSTIC FACET BLOCK ON 07/12/2020. HOURLY DIARY IS REVIEWED AND SHOWS GREATER THAN 80% REDUCTION IN PAIN FOR SEVERAL DAYS. PAIN IS BEGINNING TO RETURN TO BASELINE. DISCUSSED DIAGNOSTIC TESTING #2 AND PROCEEDING WITH RADIOFREQUENCY.-. FALL RISK SCREENING: SCREENING : NO FALLS REPORTED IN THE LAST YEAR. PAIN SCREENING: PATIENT HAS A COMPLAINT OF ACUTE OR CHRONIC PAIN :YES LOCATION OF PAIN:LOW BACK INTENSITY OF PAIN (SCALE OF 1 TO 10):4 WHAT DOES YOUR PAIN FEEL LIKE:CONTINOUS DURATION:CONSTANT PAIN IS INCREASED BY:ACTIVITIES, PROLONGED STANDING, OTHERS WALKING PAIN IS DECREASED BY:OTHERS RESTING AND HEAT AND ICE NURSING NOTE: -. PAIN CENTER INTAKE QUESTIONS: DO YOU HAVE A HISTORY OF MRSA? :NO DO YOU TAKE A BLOOD THINNERS? :YES ELMIRON DO YOU HAVE ANY BLEEDING DISORDERS? :NO ANY NEW NUMBNESS OR WEAKNESS IN YOUR LEGS OR ARMS? :NO ANY PACEMAKER,DEFIBRILLATOR, OR DORSAL COLUMN STIMULATOR? :NO DO YOU HAVE ANY RASHES OR OPEN SORES? :NO ARE YOU ALLERGIC TO IV DYE? :NO ARE YOU DIABETIC? :NO ANY NEW PROBLEMS WITH YOUR MEDICATIONS? :NO HAVE YOU RECEIVED A VACCINE IN THE PAST 30 DAYS? :NO DO YOU PLAN TO RECEIVE A VACCINE IN THE NEXT 21 DAYS? :NO DO YOU NEED ANY PRESCRIPTION? :NO DO YOU TAKE ANY IMMUNOSUPPRESSIVE MEDICATIONS? :YES LEFLUNOMIDE AND ENBREL SURECLICK IS THERE A CHANCE YOU COULD BE ? :NO ARE YOU BREAST FEEDING? :NO CURRENT MEDICATIONS TAKING VITAMIN D 2000 UNIT CAPSULE 1 TABLET ORALLY ONCE A DAY TAKING CANE . MISCELLANEOUS QUAD CANE _ QD R27 TAKING CALCIUM 600 + D 600-400 MG-UNIT TABLET 1 TABLET ORALLY ONCE A DAY TAKING ELMIRON 100 MG CAPSULE 1 CAPSULE ON AN EMPTY STOMACH 1 TABLET THREE A DAY TAKING LEFLUNOMIDE 20 MG TABLET 1 TABLET ORALLY ONCE A DAY TAKING ENBREL SURECLICK 50 MG/ML SOLUTION AUTO-INJECTOR DIRECTED SUBCUTANEOUS ONCE A WEEK TAKING CYANOCOBALAMIN 500 MCG TABLET 1 TABLET ORALLY 1 EVERY 5 DAYS TAKING CARAFATE 1 GM TABLET 1 TABLET ON AN EMPTY STOMACH ORALLY AC TID TAKING ATORVASTATIN CALCIUM 20 MG TABLET 1 TABLET ORALLY ONCE A DAY TAKING FISH OIL 1000 MG CAPSULE 1 CAPSULE ORALLY ONCE A DAY TAKING ESCITALOPRAM OXALATE 10 MG TABLET 15MG 1.5 TABLET ORALLY ONCE A DAY TAKING ESOMEPRAZOLE MAGNESIUM 40 MG CAPSULE DELAYED RELEASE 1 CAPSULE ORALLY AC BID TAKING CARISOPRODOL 350 MG TABLET 1 TABLET NEEDED ORALLY TID PRN, MDD 3 TAKING HYDROCODONE-ACETAMINOPHEN 5-325 MG TABLET 1 TABLET NEEDED ORALLY TID PRN MDD = 3 MEDICATION LIST REVIEWED AND RECONCILED WITH THE PATIENT PAST MEDICAL HISTORY RA/OSTEOARTHRITIS/FIBROMYALGIA NICOTINE ADDICTION-08/2011 FEV1 2.5L (101%)/RATIO 97%-1 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 GERD/DYSPEPSIA-06/2016 NORMAL EGD/COLON/SB CAPSULE-R HYPERLIPIDEMIA 2B ENDOMETRIOSIS 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 SPENCER 2008 FOLLOWS WITH WOMAN TO WOMAN HISTORY OF TUBULAR ADENOMA-NORMAL COLONOSCOPY APRIL 2009 NORMAL COLONOSCOPY C - RANDOM BIOPSIES-[place] COLONOSCOPY 07/18/16 REINDL CERVICAL DJD STATUS POST MULTILEVEL FUSION-01/2010 MRI STABLE ACDF C BASELINE DJD ATROPHIC VAGINITIS OSTEOPENIA VITAMIN D DEFICIENCY CHRONIC SINUSITIS / NONE LATELY RECURRENT UTI / YEARS AGO CHRONIC DIARRHEA STATUS POST LAPAROSCOPIC CHOLECYSTECTOMY JULY 2009//[id number] CHRONIC DRY EYES MEMORY LOSS 2 INSOMNIA, WORK STRESS-12/2011 NORMAL MRI BRAIN S AND NORMAL WORKUP LUMBAR DJD-L2/3 BULGE C L IF HNP C L L2 COMPRESSION, L3/4 SEVERE CCS C B L3 COMPRESSION BY 03/2017 MRI LONG-TERM DISABILITY-TAKEN OOW 08/05/[address] BARAJAS, 01/2014 FILLED OUT LTD PAPERWORK FOR GUARDIAN-PATIENT DEFERRED WCE INSOMNIA, COOMORBID ANXIETY OCULAR SURFACE DISEASE ALLERGIES METHOTREXATE (ANTI-RHEUMATIC): MIGRANES - SIDE EFFECTS CYMBALTA: RACING PLUSE, SHAKES - ALLERGY WELLBUTRIN: PALPITATIONS, SEVERE - ALLERGY SULFA (FOR ALLERGY USE ONLY): NAUSEA/VOMITING - ALLERGY LYRICA: PALPITATIONS - ALLERGY CELEXA: PALPITATIONS - SIDE EFFECTS ORENCIA: ANAPHYLAXIS - ALLERGY TOPICAL ALOE VERA: SEVERE ITCHING CANNOT TOLERATE ASA BASED PRODUCTS/ NSAIDS: HX STOMACH BLEED - CONTRAINDICATION SURGICAL HISTORY LAPAROSCOPY X2 CHRISTINE BTL 1982 TVH [address] SPENCER 2008 VAGINAL CUFF BX. IRMA CHANDLER NP 03/07 CHOLECYSTECTOMY 06/09 ACDF-C4-T1 10/06 R BREAST [id number] 09/2010 ABOVE L CTR- FISH 10/27/14 L4-L5 FUSION/LAMINECTOMY 09/2013 NORMAL EGD/COLON/SB CAPSULE-R 06/2016 FUSION C5 C6 1999 HYSTERECTOMY 1988 BENIGN MOLE REMOVAL 2018 SOCIAL HISTORY GENERAL: TOBACCO USE ARE YOU A:CURRENT SMOKER ARE YOU INTERESTED IN QUITTING?THINKING ABOUT QUITTING COUNSELED THE PATIENT ON SMOKING CESSATION, EDUCATION [id number]/30/2021 HOW MANY CIGARETTES A DAY DO YOU SMOKE?5 OR LESS HOW SOON AFTER YOU WAKE UP DO YOU SMOKE YOUR FIRST CIGARETTE?AFTER 60 MIN HOW OFTEN DO YOU SMOKE CIGARETTES?EVERY DAY PATIENT COUNSELED ON THE DANGERS OF TOBACCO USE AND URGED TO QUIT:05/26/2020 VAPORNO E-CIGARETTENO LATEX QUESTIONNAIRE LATEX ALLERGY : HAVE YOU EVER DEVELOPED ANY TYPE OF REACTION AFTER HANDLING LATEX PRODUCTS SUCH RUBBER GLOVES, CONDOMS, DIAPHRAGMS, BALLOONS, SOCKS, OR UNDERWEAR?NO LATEX ALLERGY : HAVE YOU EVER DEVELOPED ANY TYPE OF REACTION DURING OR AFTER DENTAL APPOINTMENT, VAGINAL/RECTAL EXAMINATION, SURGICAL PROCEDURE, OR ANY OTHER EXPOSURE?NO LATEX RISK : HAVE YOU EVER HAD ANY DIFFICULTY BREATHING OR HIVES AFTER EATING OR HANDLING ANY FRUITS, OR VEGETABLES; SUCH KIWI, BANANAS, STONE FRUITS, OR CHESTNUTSNO LATEX RISK : DO YOU HAVE A PREVIOUS PERSONAL HISTORY OF MORE THAN NINE SURGERIES, SPINA BIFIDA, OR REPEATED CATHERIZATIONS? YES LATEX RISK : ARE YOU FREQUENTLY EXPOSED TO LATEX PRODUCTS IN YOUR OCCUPATION?NO DATE ASKED : 07/27/2020 ALCOHOL USE: NO, ONCE EVERY 4 MONTH. ALCOHOL SCREENING DID YOU HAVE A DRINK CONTAINING ALCOHOL IN THE PAST YEAR?YES HOW OFTEN DID YOU HAVE A DRINK CONTAINING ALCOHOL IN THE PAST YEAR?MONTHLY OR LESS (1 POINT) POINTS1 INTERPRETATIONNEGATIVE RECREATIONAL DRUG USE DRUG USE?NO CAFFEINE CAFFEINE USE?YES 2-3 DAILY SEXUAL HX HAD SEX IN THE LAST 12 MONTHS (VAGINAL, ORAL, OR ANAL)?NO HAVE YOU EVER HAD AN STD?NO HIV / HEP-C SCREENING HIV TEST OFFERED TO PATIENT:YES DATE OFFERED:06/28/2017 TEST ACCEPTED:NO HEP-C TEST OFFERED TO PATIENT:YES DATE OFFERED:06/28/2017 REASON:PATIENT DECLINED TEST ACCEPTED:NO REASON:PATIENT DECLINED ANABAPTIST [id number] NONE NO ROMAN CATHOLIC BELIEFS THAT WOULD IMPACT HEALTH CARE. LANGUAGE LANGUAGES SPOKEN:HUNGARIAN EDUCATION LEVEL OF EDUCATION:HIGH SCHOOL GED LEARNING BARRIERS / SPECIAL NEEDS CHANGE FROM LAST VISIT?NO BARRIERS TO LEARNING?NO HEARING IMPAIRED?NO TINITUS VISION IMPAIRED?YES :CORRECTIVE LENSES COGNITIVELY IMPAIRED?NO READINESS TO LEARN?YES LEARNING PREFERENCES?NO LEARNING CAPABILITIES PRESENT?YES EMOTIONAL BARRIERS?NO SPECIAL DEVICES?YES :CANE NEEDED VALUE STREAM MANAGER NEEDED?NO DOMESTIC VIOLENCE DO YOU FEEL SAFE IN YOUR ENVIRONMENT?YES OCCUPATION: DISABLED. DIET: AVOIDS GREASY, FRIED FOODS, DAIRY.TRIES TO EAT SMALLER PORTIONS. EXERCISE: LOWER BACK EXERCISES, WALKS TOLERATED. MARITAL STATUS: .. OTHERS AT HOME: DAUGHTER. - PFS REFERRAL NEEDED?NO CLERGY REFERRAL NEEDED?NO PUBLIC HEALTH REFERRAL NEEDED?NO HAS THE PATIENT BEEN EDUCATED REGARDING HIS/HER PLAN OF CARE?YES HAS THE PATIENT BEEN EDUCATED REGARDING PAIN, THE RISK FOR PAIN, THE IMPORTANCE OF EFFECTIVE PAIN MANAGEMENT, AND THE PAIN ASSESSMENT PROCESS?YES ADVANCE DIRECTIVE ADVANCE DIRECTIVE DISCUSSED WITH PATIENT:YES PT STATES SHE HAS A HEALTH CARE PROXY-RAH ROSARIO [phone] HOSPITALIZATION/MAJOR DIAGNOSTIC PROCEDURE SURGICAL RELATED REVIEW OF SYSTEMS CONSTITUTIONAL: ANY RECENT FEVER NO . CHILLS NO . WEIGHT CHANGE OF UNKNOWN REASONS NO . GASTROENTEROLOGY: NEW UNEXPLAINABLE CHANGES IN BOWEL CONTROL NO . CONSTIPATION NO . GENITOURINARY: ANY NEW CHANGE IN BLADDER CONTROL? NO . NEUROLOGY: NEW ONSET DIZZINESS OR NEUROLOGICAL CHANGES NOT MENTIONED NO . NEW NUMBNESS OR PAIN PATTERNS NOT MENTIONED AND PERTINENT TO TODAY'S VISIT NO . CARDIOLOGY: NEW CHEST PRESSURE NO . PATIENT DENIES NO . RESPIRATORY: UNEXPLAINABLE COUGH NO . NEW SHORTNESS OF BREATH NO . VITAL SIGNS WT 125 LBS, HT 64 IN, BMI 21.45 INDEX, BP 126/55 MM HG, HR 85 /MIN, RR 18 /MIN, TEMP 98.3 F, OXYGEN SAT % 96%, SAFE IN ENV? (Y/N) YEST.CARYN CORLEY. EXAMINATION GENERAL EXAMINATION: GENERAL AWAKE,ALERT ,PLEASANT . PSYCH AFFECT NORMAL . LUNGS: LUNG LINDSEY ARE CLEAR TO AUSCULTATION BILATERALLY. GOOD MOVEMENT OF AIR . HEART: S1, S2 IN A REGULAR RATE AND RHYTHM. NO SIGNIFICANT MURMURS, RUBS OR GALLOPS NOTED . MUSCULOSKELETAL: MUSCLE STRENGTH TESTING 5/5 BILATERAL LOWER EXTREMITIES. LUMBAR: PALPATION: + FOR PAIN OVER L/S SPINE. + FOR PAIN OVER L/S PARASPINALS WELL-HEALED SURGICAL SCAR L/S AXIS. DIAGNOSTIC TESTS REVIEWEDMRI L/S SPINE . 06/2019. ASSESSMENTS SPONDYLOSIS WITHOUT MYELOPATHY OR RADICULOPATHY, LUMBAR REGION - M47.816 (PRIMARY) OTHER CHRONIC PAIN - G89.29 POST LAMINECTOMY SYNDROME - M96.1 TREATMENT SPONDYLOSIS WITHOUT MYELOPATHY OR RADICULOPATHY, LUMBAR REGION NOTES: BILATERAL DIAGNOSTIC LUMBAR FACET BLOCK L4-5,L5-S1 PRINTED AND REVIEWED PRE PROCEDURE WITH PATIENT EZEKIEL CORLEY. OTHER CHRONIC PAIN PAIN PROCEDURE LOGDATE OF PROCEDURE1PROCEDURE:BILATERAL DIAGNOSTIC LUMBAR FACET BLOCK #1 L4-L5,L5-O1MGKPEU OF PRE SEDATE0/0RESULT:GREATER THAN 80% REDUCTION IN PAIN FOR SEVERAL HOURS POSTPROCEDURESLUIS SANTOS 07/28/2020 5:14:14 PM > ANDREA, CAN YOU PLEASE PUT THE PROCEDURE RESULTS IN THIS PROCEDURE LOG? THANKS. PROCEDURE CODES FA211 ESTABILISHED PATIENT [facility] FACILITY CHARGE DISPOSITION & COMMUNICATION FOLLOW UP POST PROCEDURE (REASON: BILATERAL DIAGNOSTIC LUMBAR FACET BLOCK L4-5,L5-S1) ELECTRONICALLY SIGNED BY CARIDAD HENLEY ON 07/30/2020 AT 12:37 PM EDT DISCLAIMER : THIS IS A VISIT SUMMARY EXTRACTED FROM THE [employer] CHART. IT IS NOT A COPY OF THE [employer] PROGRESS NOTE. ZINA
--- NOTE | 2020-07-31 06:59 | ECWPNPC ---
PATIENT NAME: LOGAN CRAVEN : 1960 GENDER: FEMALE VISIT DATE: 07/27/2020 DISCHARGE DATE: 07/27/20 1058 VISIT LOCKED DATE TIME: PHYSICIAN: ANDREA ELIAS PHYSICIAN PAGER NO: ACTIVE RESOURCE: ANDREA ELIAS REASON FOR APPOINTMENT 1. POST BILATERAL DIAGNOSTIC LUMBAR FACET BLOCK #1 L4-L5, L5-S1 HISTORY OF PRESENT ILLNESS GENERAL: HERE FOR POST PROCEDURE FOLLOW-UP. HAD BILATERAL L4-5, L5-S1 LUMBAR DIAGNOSTIC FACET BLOCK ON 07/12/2020. HOURLY DIARY IS REVIEWED AND SHOWS GREATER THAN 80% REDUCTION IN PAIN FOR SEVERAL DAYS. PAIN IS BEGINNING TO RETURN TO BASELINE. DISCUSSED DIAGNOSTIC TESTING #2 AND PROCEEDING WITH RADIOFREQUENCY.-. FALL RISK SCREENING: SCREENING : NO FALLS REPORTED IN THE LAST YEAR. PAIN SCREENING: PATIENT HAS A COMPLAINT OF ACUTE OR CHRONIC PAIN :YES LOCATION OF PAIN:LOW BACK INTENSITY OF PAIN (SCALE OF 1 TO 10):4 WHAT DOES YOUR PAIN FEEL LIKE:CONTINOUS DURATION:CONSTANT PAIN IS INCREASED BY:ACTIVITIES, PROLONGED STANDING, OTHERS WALKING PAIN IS DECREASED BY:OTHERS RESTING AND HEAT AND ICE NURSING NOTE: -. PAIN CENTER INTAKE QUESTIONS: DO YOU HAVE A HISTORY OF MRSA? :NO DO YOU TAKE A BLOOD THINNERS? :YES ELMIRON DO YOU HAVE ANY BLEEDING DISORDERS? :NO ANY NEW NUMBNESS OR WEAKNESS IN YOUR LEGS OR ARMS? :NO ANY PACEMAKER,DEFIBRILLATOR, OR DORSAL COLUMN STIMULATOR? :NO DO YOU HAVE ANY RASHES OR OPEN SORES? :NO ARE YOU ALLERGIC TO IV DYE? :NO ARE YOU DIABETIC? :NO ANY NEW PROBLEMS WITH YOUR MEDICATIONS? :NO HAVE YOU RECEIVED A VACCINE IN THE PAST 30 DAYS? :NO DO YOU PLAN TO RECEIVE A VACCINE IN THE NEXT 21 DAYS? :NO DO YOU NEED ANY PRESCRIPTION? :NO DO YOU TAKE ANY IMMUNOSUPPRESSIVE MEDICATIONS? :YES LEFLUNOMIDE AND ENBREL SURECLICK IS THERE A CHANCE YOU COULD BE ? :NO ARE YOU BREAST FEEDING? :NO CURRENT MEDICATIONS TAKING VITAMIN D 2000 UNIT CAPSULE 1 TABLET ORALLY ONCE A DAY TAKING CANE . MISCELLANEOUS QUAD CANE _ QD R27 TAKING CALCIUM 600 + D 600-400 MG-UNIT TABLET 1 TABLET ORALLY ONCE A DAY TAKING ELMIRON 100 MG CAPSULE 1 CAPSULE ON AN EMPTY STOMACH 1 TABLET THREE A DAY TAKING LEFLUNOMIDE 20 MG TABLET 1 TABLET ORALLY ONCE A DAY TAKING ENBREL SURECLICK 50 MG/ML SOLUTION AUTO-INJECTOR DIRECTED SUBCUTANEOUS ONCE A WEEK TAKING CYANOCOBALAMIN 500 MCG TABLET 1 TABLET ORALLY 1 EVERY 5 DAYS TAKING CARAFATE 1 GM TABLET 1 TABLET ON AN EMPTY STOMACH ORALLY AC TID TAKING ATORVASTATIN CALCIUM 20 MG TABLET 1 TABLET ORALLY ONCE A DAY TAKING FISH OIL 1000 MG CAPSULE 1 CAPSULE ORALLY ONCE A DAY TAKING ESCITALOPRAM OXALATE 10 MG TABLET 15MG 1.5 TABLET ORALLY ONCE A DAY TAKING ESOMEPRAZOLE MAGNESIUM 40 MG CAPSULE DELAYED RELEASE 1 CAPSULE ORALLY AC BID TAKING CARISOPRODOL 350 MG TABLET 1 TABLET NEEDED ORALLY TID PRN, MDD 3 TAKING HYDROCODONE-ACETAMINOPHEN 5-325 MG TABLET 1 TABLET NEEDED ORALLY TID PRN MDD = 3 MEDICATION LIST REVIEWED AND RECONCILED WITH THE PATIENT PAST MEDICAL HISTORY RA/OSTEOARTHRITIS/FIBROMYALGIA NICOTINE ADDICTION-08/2011 FEV1 2.5L (101%)/RATIO 97%-1 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 GERD/DYSPEPSIA-06/2016 NORMAL EGD/COLON/SB CAPSULE-R HYPERLIPIDEMIA 2B ENDOMETRIOSIS 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 SPENCER 2008 FOLLOWS WITH WOMAN TO WOMAN HISTORY OF TUBULAR ADENOMA-NORMAL COLONOSCOPY APRIL 2009 NORMAL COLONOSCOPY C - RANDOM BIOPSIES-[place] COLONOSCOPY 07/18/16 REINDL CERVICAL DJD STATUS POST MULTILEVEL FUSION-01/2010 MRI STABLE ACDF C BASELINE DJD ATROPHIC VAGINITIS OSTEOPENIA VITAMIN D DEFICIENCY CHRONIC SINUSITIS / NONE LATELY RECURRENT UTI / YEARS AGO CHRONIC DIARRHEA STATUS POST LAPAROSCOPIC CHOLECYSTECTOMY JULY 2009//[id number] CHRONIC DRY EYES MEMORY LOSS 2 INSOMNIA, WORK STRESS-12/2011 NORMAL MRI BRAIN S AND NORMAL WORKUP LUMBAR DJD-L2/3 BULGE C L IF HNP C L L2 COMPRESSION, L3/4 SEVERE CCS C B L3 COMPRESSION BY 03/2017 MRI LONG-TERM DISABILITY-TAKEN OOW 08/05/[address] BARAJAS, 01/2014 FILLED OUT LTD PAPERWORK FOR GUARDIAN-PATIENT DEFERRED WCE INSOMNIA, COOMORBID ANXIETY OCULAR SURFACE DISEASE ALLERGIES METHOTREXATE (ANTI-RHEUMATIC): MIGRANES - SIDE EFFECTS CYMBALTA: RACING PLUSE, SHAKES - ALLERGY WELLBUTRIN: PALPITATIONS, SEVERE - ALLERGY SULFA (FOR ALLERGY USE ONLY): NAUSEA/VOMITING - ALLERGY LYRICA: PALPITATIONS - ALLERGY CELEXA: PALPITATIONS - SIDE EFFECTS ORENCIA: ANAPHYLAXIS - ALLERGY TOPICAL ALOE VERA: SEVERE ITCHING CANNOT TOLERATE ASA BASED PRODUCTS/ NSAIDS: HX STOMACH BLEED - CONTRAINDICATION SURGICAL HISTORY LAPAROSCOPY X2 CHRISTINE BTL 1982 TVH [address] SPENCER 2008 VAGINAL CUFF BX. IRMA CHANDLER NP 03/07 CHOLECYSTECTOMY 06/09 ACDF-C4-T1 10/06 R BREAST [id number] 09/2010 ABOVE L CTR- FISH 10/27/14 L4-L5 FUSION/LAMINECTOMY 09/2013 NORMAL EGD/COLON/SB CAPSULE-R 06/2016 FUSION C5 C6 1999 HYSTERECTOMY 1988 BENIGN MOLE REMOVAL 2018 SOCIAL HISTORY GENERAL: TOBACCO USE ARE YOU A:CURRENT SMOKER ARE YOU INTERESTED IN QUITTING?THINKING ABOUT QUITTING COUNSELED THE PATIENT ON SMOKING CESSATION, EDUCATION [id number]/30/2021 HOW MANY CIGARETTES A DAY DO YOU SMOKE?5 OR LESS HOW SOON AFTER YOU WAKE UP DO YOU SMOKE YOUR FIRST CIGARETTE?AFTER 60 MIN HOW OFTEN DO YOU SMOKE CIGARETTES?EVERY DAY PATIENT COUNSELED ON THE DANGERS OF TOBACCO USE AND URGED TO QUIT:05/26/2020 VAPORNO E-CIGARETTENO LATEX QUESTIONNAIRE LATEX ALLERGY : HAVE YOU EVER DEVELOPED ANY TYPE OF REACTION AFTER HANDLING LATEX PRODUCTS SUCH RUBBER GLOVES, CONDOMS, DIAPHRAGMS, BALLOONS, SOCKS, OR UNDERWEAR?NO LATEX ALLERGY : HAVE YOU EVER DEVELOPED ANY TYPE OF REACTION DURING OR AFTER DENTAL APPOINTMENT, VAGINAL/RECTAL EXAMINATION, SURGICAL PROCEDURE, OR ANY OTHER EXPOSURE?NO LATEX RISK : HAVE YOU EVER HAD ANY DIFFICULTY BREATHING OR HIVES AFTER EATING OR HANDLING ANY FRUITS, OR VEGETABLES; SUCH KIWI, BANANAS, STONE FRUITS, OR CHESTNUTSNO LATEX RISK : DO YOU HAVE A PREVIOUS PERSONAL HISTORY OF MORE THAN NINE SURGERIES, SPINA BIFIDA, OR REPEATED CATHERIZATIONS? YES LATEX RISK : ARE YOU FREQUENTLY EXPOSED TO LATEX PRODUCTS IN YOUR OCCUPATION?NO DATE ASKED : 07/27/2020 ALCOHOL USE: NO, ONCE EVERY 4 MONTH. ALCOHOL SCREENING DID YOU HAVE A DRINK CONTAINING ALCOHOL IN THE PAST YEAR?YES HOW OFTEN DID YOU HAVE A DRINK CONTAINING ALCOHOL IN THE PAST YEAR?MONTHLY OR LESS (1 POINT) POINTS1 INTERPRETATIONNEGATIVE RECREATIONAL DRUG USE DRUG USE?NO CAFFEINE CAFFEINE USE?YES 2-3 DAILY SEXUAL HX HAD SEX IN THE LAST 12 MONTHS (VAGINAL, ORAL, OR ANAL)?NO HAVE YOU EVER HAD AN STD?NO HIV / HEP-C SCREENING HIV TEST OFFERED TO PATIENT:YES DATE OFFERED:06/28/2017 TEST ACCEPTED:NO HEP-C TEST OFFERED TO PATIENT:YES DATE OFFERED:06/28/2017 REASON:PATIENT DECLINED TEST ACCEPTED:NO REASON:PATIENT DECLINED YARSANISM [id number] NONE NO DRUZE BELIEFS THAT WOULD IMPACT HEALTH CARE. LANGUAGE LANGUAGES SPOKEN:TURKISH EDUCATION LEVEL OF EDUCATION:HIGH SCHOOL GED LEARNING BARRIERS / SPECIAL NEEDS CHANGE FROM LAST VISIT?NO BARRIERS TO LEARNING?NO HEARING IMPAIRED?NO TINITUS VISION IMPAIRED?YES :CORRECTIVE LENSES COGNITIVELY IMPAIRED?NO READINESS TO LEARN?YES LEARNING PREFERENCES?NO LEARNING CAPABILITIES PRESENT?YES EMOTIONAL BARRIERS?NO SPECIAL DEVICES?YES :CANE NEEDED PROGRAM REP NEEDED?NO DOMESTIC VIOLENCE DO YOU FEEL SAFE IN YOUR ENVIRONMENT?YES OCCUPATION: DISABLED. DIET: AVOIDS GREASY, FRIED FOODS, DAIRY.TRIES TO EAT SMALLER PORTIONS. EXERCISE: LOWER BACK EXERCISES, WALKS TOLERATED. MARITAL STATUS: .. OTHERS AT HOME: DAUGHTER. - PFS REFERRAL NEEDED?NO CLERGY REFERRAL NEEDED?NO PUBLIC HEALTH REFERRAL NEEDED?NO HAS THE PATIENT BEEN EDUCATED REGARDING HIS/HER PLAN OF CARE?YES HAS THE PATIENT BEEN EDUCATED REGARDING PAIN, THE RISK FOR PAIN, THE IMPORTANCE OF EFFECTIVE PAIN MANAGEMENT, AND THE PAIN ASSESSMENT PROCESS?YES ADVANCE DIRECTIVE ADVANCE DIRECTIVE DISCUSSED WITH PATIENT:YES PT STATES SHE HAS A HEALTH CARE PROXY-RAH ROSARIO [phone] HOSPITALIZATION/MAJOR DIAGNOSTIC PROCEDURE SURGICAL RELATED REVIEW OF SYSTEMS CONSTITUTIONAL: ANY RECENT FEVER NO . CHILLS NO . WEIGHT CHANGE OF UNKNOWN REASONS NO . GASTROENTEROLOGY: NEW UNEXPLAINABLE CHANGES IN BOWEL CONTROL NO . CONSTIPATION NO . GENITOURINARY: ANY NEW CHANGE IN BLADDER CONTROL? NO . NEUROLOGY: NEW ONSET DIZZINESS OR NEUROLOGICAL CHANGES NOT MENTIONED NO . NEW NUMBNESS OR PAIN PATTERNS NOT MENTIONED AND PERTINENT TO TODAY'S VISIT NO . CARDIOLOGY: NEW CHEST PRESSURE NO . PATIENT DENIES NO . RESPIRATORY: UNEXPLAINABLE COUGH NO . NEW SHORTNESS OF BREATH NO . VITAL SIGNS WT 125 LBS, HT 64 IN, BMI 21.45 INDEX, BP 126/55 MM HG, HR 85 /MIN, RR 18 /MIN, TEMP 98.3 F, OXYGEN SAT % 96%, SAFE IN ENV? (Y/N) YEST.CARYN CORLEY. EXAMINATION GENERAL EXAMINATION: GENERAL AWAKE,ALERT ,PLEASANT . PSYCH AFFECT NORMAL . LUNGS: LUNG LINDSEY ARE CLEAR TO AUSCULTATION BILATERALLY. GOOD MOVEMENT OF AIR . HEART: S1, S2 IN A REGULAR RATE AND RHYTHM. NO SIGNIFICANT MURMURS, RUBS OR GALLOPS NOTED . MUSCULOSKELETAL: MUSCLE STRENGTH TESTING 5/5 BILATERAL LOWER EXTREMITIES. LUMBAR: PALPATION: + FOR PAIN OVER L/S SPINE. + FOR PAIN OVER L/S PARASPINALS WELL-HEALED SURGICAL SCAR L/S AXIS. DIAGNOSTIC TESTS REVIEWEDMRI L/S SPINE . 06/2019. ASSESSMENTS SPONDYLOSIS WITHOUT MYELOPATHY OR RADICULOPATHY, LUMBAR REGION - M47.816 (PRIMARY) OTHER CHRONIC PAIN - G89.29 POST LAMINECTOMY SYNDROME - M96.1 TREATMENT SPONDYLOSIS WITHOUT MYELOPATHY OR RADICULOPATHY, LUMBAR REGION NOTES: BILATERAL DIAGNOSTIC LUMBAR FACET BLOCK L4-5,L5-S1 PRINTED AND REVIEWED PRE PROCEDURE WITH PATIENT EZEKIEL CORLEY. OTHER CHRONIC PAIN PAIN PROCEDURE LOGDATE OF PROCEDURE1PROCEDURE:BILATERAL DIAGNOSTIC LUMBAR FACET BLOCK #1 L4-L5,L5-V4BSMJUB OF PRE SEDATE0/0RESULT:GREATER THAN 80% REDUCTION IN PAIN FOR SEVERAL HOURS POSTPROCEDURESLUIS SANTSO 07/28/2020 5:14:14 PM > ANDREA, CAN YOU PLEASE PUT THE PROCEDURE RESULTS IN THIS PROCEDURE LOG? THANKS. PROCEDURE CODES FA211 ESTABILISHED PATIENT [facility] FACILITY CHARGE DISPOSITION & COMMUNICATION FOLLOW UP POST PROCEDURE (REASON: BILATERAL DIAGNOSTIC LUMBAR FACET BLOCK L4-5,L5-S1) ELECTRONICALLY SIGNED BY CARIDAD HENLEY ON 07/30/2020 AT 12:37 PM EDT DISCLAIMER : THIS IS A VISIT SUMMARY EXTRACTED FROM THE [employer] CHART. IT IS NOT A COPY OF THE [employer] PROGRESS NOTE. ZINA
--- NOTE | 2020-07-31 07:00 | ECWPNPC ---
PATIENT NAME: LOGAN CRAVEN : 1960 GENDER: FEMALE VISIT DATE: 07/27/2020 DISCHARGE DATE: 07/27/20 1058 VISIT LOCKED DATE TIME: PHYSICIAN: ANDREA ELIAS PHYSICIAN PAGER NO: ACTIVE RESOURCE: ANDREA ELIAS REASON FOR APPOINTMENT 1. POST BILATERAL DIAGNOSTIC LUMBAR FACET BLOCK #1 L4-L5, L5-S1 HISTORY OF PRESENT ILLNESS GENERAL: HERE FOR POST PROCEDURE FOLLOW-UP. HAD BILATERAL L4-5, L5-S1 LUMBAR DIAGNOSTIC FACET BLOCK ON 07/12/2020. HOURLY DIARY IS REVIEWED AND SHOWS GREATER THAN 80% REDUCTION IN PAIN FOR SEVERAL DAYS. PAIN IS BEGINNING TO RETURN TO BASELINE. DISCUSSED DIAGNOSTIC TESTING #2 AND PROCEEDING WITH RADIOFREQUENCY.-. FALL RISK SCREENING: SCREENING : NO FALLS REPORTED IN THE LAST YEAR. PAIN SCREENING: PATIENT HAS A COMPLAINT OF ACUTE OR CHRONIC PAIN :YES LOCATION OF PAIN:LOW BACK INTENSITY OF PAIN (SCALE OF 1 TO 10):4 WHAT DOES YOUR PAIN FEEL LIKE:CONTINOUS DURATION:CONSTANT PAIN IS INCREASED BY:ACTIVITIES, PROLONGED STANDING, OTHERS WALKING PAIN IS DECREASED BY:OTHERS RESTING AND HEAT AND ICE NURSING NOTE: -. PAIN CENTER INTAKE QUESTIONS: DO YOU HAVE A HISTORY OF MRSA? :NO DO YOU TAKE A BLOOD THINNERS? :YES ELMIRON DO YOU HAVE ANY BLEEDING DISORDERS? :NO ANY NEW NUMBNESS OR WEAKNESS IN YOUR LEGS OR ARMS? :NO ANY PACEMAKER,DEFIBRILLATOR, OR DORSAL COLUMN STIMULATOR? :NO DO YOU HAVE ANY RASHES OR OPEN SORES? :NO ARE YOU ALLERGIC TO IV DYE? :NO ARE YOU DIABETIC? :NO ANY NEW PROBLEMS WITH YOUR MEDICATIONS? :NO HAVE YOU RECEIVED A VACCINE IN THE PAST 30 DAYS? :NO DO YOU PLAN TO RECEIVE A VACCINE IN THE NEXT 21 DAYS? :NO DO YOU NEED ANY PRESCRIPTION? :NO DO YOU TAKE ANY IMMUNOSUPPRESSIVE MEDICATIONS? :YES LEFLUNOMIDE AND ENBREL SURECLICK IS THERE A CHANCE YOU COULD BE ? :NO ARE YOU BREAST FEEDING? :NO CURRENT MEDICATIONS TAKING VITAMIN D 2000 UNIT CAPSULE 1 TABLET ORALLY ONCE A DAY TAKING CANE . MISCELLANEOUS QUAD CANE _ QD R27 TAKING CALCIUM 600 + D 600-400 MG-UNIT TABLET 1 TABLET ORALLY ONCE A DAY TAKING ELMIRON 100 MG CAPSULE 1 CAPSULE ON AN EMPTY STOMACH 1 TABLET THREE A DAY TAKING LEFLUNOMIDE 20 MG TABLET 1 TABLET ORALLY ONCE A DAY TAKING ENBREL SURECLICK 50 MG/ML SOLUTION AUTO-INJECTOR DIRECTED SUBCUTANEOUS ONCE A WEEK TAKING CYANOCOBALAMIN 500 MCG TABLET 1 TABLET ORALLY 1 EVERY 5 DAYS TAKING CARAFATE 1 GM TABLET 1 TABLET ON AN EMPTY STOMACH ORALLY AC TID TAKING ATORVASTATIN CALCIUM 20 MG TABLET 1 TABLET ORALLY ONCE A DAY TAKING FISH OIL 1000 MG CAPSULE 1 CAPSULE ORALLY ONCE A DAY TAKING ESCITALOPRAM OXALATE 10 MG TABLET 15MG 1.5 TABLET ORALLY ONCE A DAY TAKING ESOMEPRAZOLE MAGNESIUM 40 MG CAPSULE DELAYED RELEASE 1 CAPSULE ORALLY AC BID TAKING CARISOPRODOL 350 MG TABLET 1 TABLET NEEDED ORALLY TID PRN, MDD 3 TAKING HYDROCODONE-ACETAMINOPHEN 5-325 MG TABLET 1 TABLET NEEDED ORALLY TID PRN MDD = 3 MEDICATION LIST REVIEWED AND RECONCILED WITH THE PATIENT PAST MEDICAL HISTORY RA/OSTEOARTHRITIS/FIBROMYALGIA NICOTINE ADDICTION-08/2011 FEV1 2.5L (101%)/RATIO 97%-1 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 GERD/DYSPEPSIA-06/2016 NORMAL EGD/COLON/SB CAPSULE-R HYPERLIPIDEMIA 2B ENDOMETRIOSIS 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 SPENCER 2008 FOLLOWS WITH WOMAN TO WOMAN HISTORY OF TUBULAR ADENOMA-NORMAL COLONOSCOPY APRIL 2009 NORMAL COLONOSCOPY C - RANDOM BIOPSIES-[place] COLONOSCOPY 07/18/16 REINDL CERVICAL DJD STATUS POST MULTILEVEL FUSION-01/2010 MRI STABLE ACDF C BASELINE DJD ATROPHIC VAGINITIS OSTEOPENIA VITAMIN D DEFICIENCY CHRONIC SINUSITIS / NONE LATELY RECURRENT UTI / YEARS AGO CHRONIC DIARRHEA STATUS POST LAPAROSCOPIC CHOLECYSTECTOMY JULY 2009//[id number] CHRONIC DRY EYES MEMORY LOSS 2 INSOMNIA, WORK STRESS-12/2011 NORMAL MRI BRAIN S AND NORMAL WORKUP LUMBAR DJD-L2/3 BULGE C L IF HNP C L L2 COMPRESSION, L3/4 SEVERE CCS C B L3 COMPRESSION BY 03/2017 MRI LONG-TERM DISABILITY-TAKEN OOW 08/05/[address] BARAJAS, 01/2014 FILLED OUT LTD PAPERWORK FOR GUARDIAN-PATIENT DEFERRED WCE INSOMNIA, COOMORBID ANXIETY OCULAR SURFACE DISEASE ALLERGIES METHOTREXATE (ANTI-RHEUMATIC): MIGRANES - SIDE EFFECTS CYMBALTA: RACING PLUSE, SHAKES - ALLERGY WELLBUTRIN: PALPITATIONS, SEVERE - ALLERGY SULFA (FOR ALLERGY USE ONLY): NAUSEA/VOMITING - ALLERGY LYRICA: PALPITATIONS - ALLERGY CELEXA: PALPITATIONS - SIDE EFFECTS ORENCIA: ANAPHYLAXIS - ALLERGY TOPICAL ALOE VERA: SEVERE ITCHING CANNOT TOLERATE ASA BASED PRODUCTS/ NSAIDS: HX STOMACH BLEED - CONTRAINDICATION SURGICAL HISTORY LAPAROSCOPY X2 CHRISTINE BTL 1982 TVH [address] SPENCER 2008 VAGINAL CUFF BX. IRMA CHANDLER NP 03/07 CHOLECYSTECTOMY 06/09 ACDF-C4-T1 10/06 R BREAST [id number] 09/2010 ABOVE L CTR- FISH 10/27/14 L4-L5 FUSION/LAMINECTOMY 09/2013 NORMAL EGD/COLON/SB CAPSULE-R 06/2016 FUSION C5 C6 1999 HYSTERECTOMY 1988 BENIGN MOLE REMOVAL 2018 SOCIAL HISTORY GENERAL: TOBACCO USE ARE YOU A:CURRENT SMOKER ARE YOU INTERESTED IN QUITTING?THINKING ABOUT QUITTING COUNSELED THE PATIENT ON SMOKING CESSATION, EDUCATION [id number]/30/2021 HOW MANY CIGARETTES A DAY DO YOU SMOKE?5 OR LESS HOW SOON AFTER YOU WAKE UP DO YOU SMOKE YOUR FIRST CIGARETTE?AFTER 60 MIN HOW OFTEN DO YOU SMOKE CIGARETTES?EVERY DAY PATIENT COUNSELED ON THE DANGERS OF TOBACCO USE AND URGED TO QUIT:05/26/2020 VAPORNO E-CIGARETTENO LATEX QUESTIONNAIRE LATEX ALLERGY : HAVE YOU EVER DEVELOPED ANY TYPE OF REACTION AFTER HANDLING LATEX PRODUCTS SUCH RUBBER GLOVES, CONDOMS, DIAPHRAGMS, BALLOONS, SOCKS, OR UNDERWEAR?NO LATEX ALLERGY : HAVE YOU EVER DEVELOPED ANY TYPE OF REACTION DURING OR AFTER DENTAL APPOINTMENT, VAGINAL/RECTAL EXAMINATION, SURGICAL PROCEDURE, OR ANY OTHER EXPOSURE?NO LATEX RISK : HAVE YOU EVER HAD ANY DIFFICULTY BREATHING OR HIVES AFTER EATING OR HANDLING ANY FRUITS, OR VEGETABLES; SUCH KIWI, BANANAS, STONE FRUITS, OR CHESTNUTSNO LATEX RISK : DO YOU HAVE A PREVIOUS PERSONAL HISTORY OF MORE THAN NINE SURGERIES, SPINA BIFIDA, OR REPEATED CATHERIZATIONS? YES LATEX RISK : ARE YOU FREQUENTLY EXPOSED TO LATEX PRODUCTS IN YOUR OCCUPATION?NO DATE ASKED : 07/27/2020 ALCOHOL USE: NO, ONCE EVERY 4 MONTH. ALCOHOL SCREENING DID YOU HAVE A DRINK CONTAINING ALCOHOL IN THE PAST YEAR?YES HOW OFTEN DID YOU HAVE A DRINK CONTAINING ALCOHOL IN THE PAST YEAR?MONTHLY OR LESS (1 POINT) POINTS1 INTERPRETATIONNEGATIVE RECREATIONAL DRUG USE DRUG USE?NO CAFFEINE CAFFEINE USE?YES 2-3 DAILY SEXUAL HX HAD SEX IN THE LAST 12 MONTHS (VAGINAL, ORAL, OR ANAL)?NO HAVE YOU EVER HAD AN STD?NO HIV / HEP-C SCREENING HIV TEST OFFERED TO PATIENT:YES DATE OFFERED:06/28/2017 TEST ACCEPTED:NO HEP-C TEST OFFERED TO PATIENT:YES DATE OFFERED:06/28/2017 REASON:PATIENT DECLINED TEST ACCEPTED:NO REASON:PATIENT DECLINED RASTAFARIAN [id number] NONE NO ANGLICAN BELIEFS THAT WOULD IMPACT HEALTH CARE. LANGUAGE LANGUAGES SPOKEN:ROMANIAN EDUCATION LEVEL OF EDUCATION:HIGH SCHOOL GED LEARNING BARRIERS / SPECIAL NEEDS CHANGE FROM LAST VISIT?NO BARRIERS TO LEARNING?NO HEARING IMPAIRED?NO TINITUS VISION IMPAIRED?YES :CORRECTIVE LENSES COGNITIVELY IMPAIRED?NO READINESS TO LEARN?YES LEARNING PREFERENCES?NO LEARNING CAPABILITIES PRESENT?YES EMOTIONAL BARRIERS?NO SPECIAL DEVICES?YES :CANE NEEDED VIDEO CONTROL ENGINEER NEEDED?NO DOMESTIC VIOLENCE DO YOU FEEL SAFE IN YOUR ENVIRONMENT?YES OCCUPATION: DISABLED. DIET: AVOIDS GREASY, FRIED FOODS, DAIRY.TRIES TO EAT SMALLER PORTIONS. EXERCISE: LOWER BACK EXERCISES, WALKS TOLERATED. MARITAL STATUS: .. OTHERS AT HOME: DAUGHTER. - PFS REFERRAL NEEDED?NO CLERGY REFERRAL NEEDED?NO PUBLIC HEALTH REFERRAL NEEDED?NO HAS THE PATIENT BEEN EDUCATED REGARDING HIS/HER PLAN OF CARE?YES HAS THE PATIENT BEEN EDUCATED REGARDING PAIN, THE RISK FOR PAIN, THE IMPORTANCE OF EFFECTIVE PAIN MANAGEMENT, AND THE PAIN ASSESSMENT PROCESS?YES ADVANCE DIRECTIVE ADVANCE DIRECTIVE DISCUSSED WITH PATIENT:YES PT STATES SHE HAS A HEALTH CARE PROXY-RAH ROSARIO [phone] HOSPITALIZATION/MAJOR DIAGNOSTIC PROCEDURE SURGICAL RELATED REVIEW OF SYSTEMS CONSTITUTIONAL: ANY RECENT FEVER NO . CHILLS NO . WEIGHT CHANGE OF UNKNOWN REASONS NO . GASTROENTEROLOGY: NEW UNEXPLAINABLE CHANGES IN BOWEL CONTROL NO . CONSTIPATION NO . GENITOURINARY: ANY NEW CHANGE IN BLADDER CONTROL? NO . NEUROLOGY: NEW ONSET DIZZINESS OR NEUROLOGICAL CHANGES NOT MENTIONED NO . NEW NUMBNESS OR PAIN PATTERNS NOT MENTIONED AND PERTINENT TO TODAY'S VISIT NO . CARDIOLOGY: NEW CHEST PRESSURE NO . PATIENT DENIES NO . RESPIRATORY: UNEXPLAINABLE COUGH NO . NEW SHORTNESS OF BREATH NO . VITAL SIGNS WT 125 LBS, HT 64 IN, BMI 21.45 INDEX, BP 126/55 MM HG, HR 85 /MIN, RR 18 /MIN, TEMP 98.3 F, OXYGEN SAT % 96%, SAFE IN ENV? (Y/N) YEST.CARYN CORLEY. EXAMINATION GENERAL EXAMINATION: GENERAL AWAKE,ALERT ,PLEASANT . PSYCH AFFECT NORMAL . LUNGS: LUNG LINDSEY ARE CLEAR TO AUSCULTATION BILATERALLY. GOOD MOVEMENT OF AIR . HEART: S1, S2 IN A REGULAR RATE AND RHYTHM. NO SIGNIFICANT MURMURS, RUBS OR GALLOPS NOTED . MUSCULOSKELETAL: MUSCLE STRENGTH TESTING 5/5 BILATERAL LOWER EXTREMITIES. LUMBAR: PALPATION: + FOR PAIN OVER L/S SPINE. + FOR PAIN OVER L/S PARASPINALS WELL-HEALED SURGICAL SCAR L/S AXIS. DIAGNOSTIC TESTS REVIEWEDMRI L/S SPINE . 06/2019. ASSESSMENTS SPONDYLOSIS WITHOUT MYELOPATHY OR RADICULOPATHY, LUMBAR REGION - M47.816 (PRIMARY) OTHER CHRONIC PAIN - G89.29 POST LAMINECTOMY SYNDROME - M96.1 TREATMENT SPONDYLOSIS WITHOUT MYELOPATHY OR RADICULOPATHY, LUMBAR REGION NOTES: BILATERAL DIAGNOSTIC LUMBAR FACET BLOCK L4-5,L5-S1 PRINTED AND REVIEWED PRE PROCEDURE WITH PATIENT EZEKIEL CORLEY. OTHER CHRONIC PAIN PAIN PROCEDURE LOGDATE OF PROCEDURE1PROCEDURE:BILATERAL DIAGNOSTIC LUMBAR FACET BLOCK #1 L4-L5,L5-[id number] OF PRE SEDATE0/0RESULT:GREATER THAN 80% REDUCTION IN PAIN FOR SEVERAL HOURS POSTPROCEDURESLUIS SANTOS 07/28/2020 5:14:14 PM > ANDREA, CAN YOU PLEASE PUT THE PROCEDURE RESULTS IN THIS PROCEDURE LOG? THANKS. PROCEDURE CODES FA211 ESTABILISHED PATIENT [facility] FACILITY CHARGE DISPOSITION & COMMUNICATION FOLLOW UP POST PROCEDURE (REASON: BILATERAL DIAGNOSTIC LUMBAR FACET BLOCK L4-5,L5-S1) ELECTRONICALLY SIGNED BY CARIDAD HENLEY ON 07/30/2020 AT 12:37 PM EDT DISCLAIMER : THIS IS A VISIT SUMMARY EXTRACTED FROM THE [employer] CHART. IT IS NOT A COPY OF THE [employer] PROGRESS NOTE. ZINA
--- NOTE | 2020-07-31 07:02 | ECWPNPC ---
PATIENT NAME: LOGAN CRAVEN : 1960 GENDER: FEMALE VISIT DATE: 07/27/2020 DISCHARGE DATE: 07/27/20 1058 VISIT LOCKED DATE TIME: PHYSICIAN: ANDREA ELIAS PHYSICIAN PAGER NO: ACTIVE RESOURCE: ANDREA ELIAS REASON FOR APPOINTMENT 1. POST BILATERAL DIAGNOSTIC LUMBAR FACET BLOCK #1 L4-L5, L5-S1 HISTORY OF PRESENT ILLNESS GENERAL: HERE FOR POST PROCEDURE FOLLOW-UP. HAD BILATERAL L4-5, L5-S1 LUMBAR DIAGNOSTIC FACET BLOCK ON 07/12/2020. HOURLY DIARY IS REVIEWED AND SHOWS GREATER THAN 80% REDUCTION IN PAIN FOR SEVERAL DAYS. PAIN IS BEGINNING TO RETURN TO BASELINE. DISCUSSED DIAGNOSTIC TESTING #2 AND PROCEEDING WITH RADIOFREQUENCY.-. FALL RISK SCREENING: SCREENING : NO FALLS REPORTED IN THE LAST YEAR. PAIN SCREENING: PATIENT HAS A COMPLAINT OF ACUTE OR CHRONIC PAIN :YES LOCATION OF PAIN:LOW BACK INTENSITY OF PAIN (SCALE OF 1 TO 10):4 WHAT DOES YOUR PAIN FEEL LIKE:CONTINOUS DURATION:CONSTANT PAIN IS INCREASED BY:ACTIVITIES, PROLONGED STANDING, OTHERS WALKING PAIN IS DECREASED BY:OTHERS RESTING AND HEAT AND ICE NURSING NOTE: -. PAIN CENTER INTAKE QUESTIONS: DO YOU HAVE A HISTORY OF MRSA? :NO DO YOU TAKE A BLOOD THINNERS? :YES ELMIRON DO YOU HAVE ANY BLEEDING DISORDERS? :NO ANY NEW NUMBNESS OR WEAKNESS IN YOUR LEGS OR ARMS? :NO ANY PACEMAKER,DEFIBRILLATOR, OR DORSAL COLUMN STIMULATOR? :NO DO YOU HAVE ANY RASHES OR OPEN SORES? :NO ARE YOU ALLERGIC TO IV DYE? :NO ARE YOU DIABETIC? :NO ANY NEW PROBLEMS WITH YOUR MEDICATIONS? :NO HAVE YOU RECEIVED A VACCINE IN THE PAST 30 DAYS? :NO DO YOU PLAN TO RECEIVE A VACCINE IN THE NEXT 21 DAYS? :NO DO YOU NEED ANY PRESCRIPTION? :NO DO YOU TAKE ANY IMMUNOSUPPRESSIVE MEDICATIONS? :YES LEFLUNOMIDE AND ENBREL SURECLICK IS THERE A CHANCE YOU COULD BE ? :NO ARE YOU BREAST FEEDING? :NO CURRENT MEDICATIONS TAKING VITAMIN D 2000 UNIT CAPSULE 1 TABLET ORALLY ONCE A DAY TAKING CANE . MISCELLANEOUS QUAD CANE _ QD R27 TAKING CALCIUM 600 + D 600-400 MG-UNIT TABLET 1 TABLET ORALLY ONCE A DAY TAKING ELMIRON 100 MG CAPSULE 1 CAPSULE ON AN EMPTY STOMACH 1 TABLET THREE A DAY TAKING LEFLUNOMIDE 20 MG TABLET 1 TABLET ORALLY ONCE A DAY TAKING ENBREL SURECLICK 50 MG/ML SOLUTION AUTO-INJECTOR DIRECTED SUBCUTANEOUS ONCE A WEEK TAKING CYANOCOBALAMIN 500 MCG TABLET 1 TABLET ORALLY 1 EVERY 5 DAYS TAKING CARAFATE 1 GM TABLET 1 TABLET ON AN EMPTY STOMACH ORALLY AC TID TAKING ATORVASTATIN CALCIUM 20 MG TABLET 1 TABLET ORALLY ONCE A DAY TAKING FISH OIL 1000 MG CAPSULE 1 CAPSULE ORALLY ONCE A DAY TAKING ESCITALOPRAM OXALATE 10 MG TABLET 15MG 1.5 TABLET ORALLY ONCE A DAY TAKING ESOMEPRAZOLE MAGNESIUM 40 MG CAPSULE DELAYED RELEASE 1 CAPSULE ORALLY AC BID TAKING CARISOPRODOL 350 MG TABLET 1 TABLET NEEDED ORALLY TID PRN, MDD 3 TAKING HYDROCODONE-ACETAMINOPHEN 5-325 MG TABLET 1 TABLET NEEDED ORALLY TID PRN MDD = 3 MEDICATION LIST REVIEWED AND RECONCILED WITH THE PATIENT PAST MEDICAL HISTORY RA/OSTEOARTHRITIS/FIBROMYALGIA NICOTINE ADDICTION-08/2011 FEV1 2.5L (101%)/RATIO 97%-1 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 GERD/DYSPEPSIA-06/2016 NORMAL EGD/COLON/SB CAPSULE-R HYPERLIPIDEMIA 2B ENDOMETRIOSIS 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 SPENCER 2008 FOLLOWS WITH WOMAN TO WOMAN HISTORY OF TUBULAR ADENOMA-NORMAL COLONOSCOPY APRIL 2009 NORMAL COLONOSCOPY C - RANDOM BIOPSIES-[place] COLONOSCOPY 07/18/16 REINDL CERVICAL DJD STATUS POST MULTILEVEL FUSION-01/2010 MRI STABLE ACDF C BASELINE DJD ATROPHIC VAGINITIS OSTEOPENIA VITAMIN D DEFICIENCY CHRONIC SINUSITIS / NONE LATELY RECURRENT UTI / YEARS AGO CHRONIC DIARRHEA STATUS POST LAPAROSCOPIC CHOLECYSTECTOMY JULY 2009//[id number] CHRONIC DRY EYES MEMORY LOSS 2 INSOMNIA, WORK STRESS-12/2011 NORMAL MRI BRAIN S AND NORMAL WORKUP LUMBAR DJD-L2/3 BULGE C L IF HNP C L L2 COMPRESSION, L3/4 SEVERE CCS C B L3 COMPRESSION BY 03/2017 MRI LONG-TERM DISABILITY-TAKEN OOW 08/05/[address] BARAJAS, 01/2014 FILLED OUT LTD PAPERWORK FOR GUARDIAN-PATIENT DEFERRED WCE INSOMNIA, COOMORBID ANXIETY OCULAR SURFACE DISEASE ALLERGIES METHOTREXATE (ANTI-RHEUMATIC): MIGRANES - SIDE EFFECTS CYMBALTA: RACING PLUSE, SHAKES - ALLERGY WELLBUTRIN: PALPITATIONS, SEVERE - ALLERGY SULFA (FOR ALLERGY USE ONLY): NAUSEA/VOMITING - ALLERGY LYRICA: PALPITATIONS - ALLERGY CELEXA: PALPITATIONS - SIDE EFFECTS ORENCIA: ANAPHYLAXIS - ALLERGY TOPICAL ALOE VERA: SEVERE ITCHING CANNOT TOLERATE ASA BASED PRODUCTS/ NSAIDS: HX STOMACH BLEED - CONTRAINDICATION SURGICAL HISTORY LAPAROSCOPY X2 CHRISTINE BTL 1982 TVH [address] SPENCER 2008 VAGINAL CUFF BX. IRMA CHANDLER NP 03/07 CHOLECYSTECTOMY 06/09 ACDF-C4-T1 10/06 R BREAST [id number] 09/2010 ABOVE L CTR- FISH 10/27/14 L4-L5 FUSION/LAMINECTOMY 09/2013 NORMAL EGD/COLON/SB CAPSULE-R 06/2016 FUSION C5 C6 1999 HYSTERECTOMY 1988 BENIGN MOLE REMOVAL 2018 SOCIAL HISTORY GENERAL: TOBACCO USE ARE YOU A:CURRENT SMOKER ARE YOU INTERESTED IN QUITTING?THINKING ABOUT QUITTING COUNSELED THE PATIENT ON SMOKING CESSATION, EDUCATION [id number]/30/2021 HOW MANY CIGARETTES A DAY DO YOU SMOKE?5 OR LESS HOW SOON AFTER YOU WAKE UP DO YOU SMOKE YOUR FIRST CIGARETTE?AFTER 60 MIN HOW OFTEN DO YOU SMOKE CIGARETTES?EVERY DAY PATIENT COUNSELED ON THE DANGERS OF TOBACCO USE AND URGED TO QUIT:05/26/2020 VAPORNO E-CIGARETTENO LATEX QUESTIONNAIRE LATEX ALLERGY : HAVE YOU EVER DEVELOPED ANY TYPE OF REACTION AFTER HANDLING LATEX PRODUCTS SUCH RUBBER GLOVES, CONDOMS, DIAPHRAGMS, BALLOONS, SOCKS, OR UNDERWEAR?NO LATEX ALLERGY : HAVE YOU EVER DEVELOPED ANY TYPE OF REACTION DURING OR AFTER DENTAL APPOINTMENT, VAGINAL/RECTAL EXAMINATION, SURGICAL PROCEDURE, OR ANY OTHER EXPOSURE?NO LATEX RISK : HAVE YOU EVER HAD ANY DIFFICULTY BREATHING OR HIVES AFTER EATING OR HANDLING ANY FRUITS, OR VEGETABLES; SUCH KIWI, BANANAS, STONE FRUITS, OR CHESTNUTSNO LATEX RISK : DO YOU HAVE A PREVIOUS PERSONAL HISTORY OF MORE THAN NINE SURGERIES, SPINA BIFIDA, OR REPEATED CATHERIZATIONS? YES LATEX RISK : ARE YOU FREQUENTLY EXPOSED TO LATEX PRODUCTS IN YOUR OCCUPATION?NO DATE ASKED : 07/27/2020 ALCOHOL USE: NO, ONCE EVERY 4 MONTH. ALCOHOL SCREENING DID YOU HAVE A DRINK CONTAINING ALCOHOL IN THE PAST YEAR?YES HOW OFTEN DID YOU HAVE A DRINK CONTAINING ALCOHOL IN THE PAST YEAR?MONTHLY OR LESS (1 POINT) POINTS1 INTERPRETATIONNEGATIVE RECREATIONAL DRUG USE DRUG USE?NO CAFFEINE CAFFEINE USE?YES 2-3 DAILY SEXUAL HX HAD SEX IN THE LAST 12 MONTHS (VAGINAL, ORAL, OR ANAL)?NO HAVE YOU EVER HAD AN STD?NO HIV / HEP-C SCREENING HIV TEST OFFERED TO PATIENT:YES DATE OFFERED:06/28/2017 TEST ACCEPTED:NO HEP-C TEST OFFERED TO PATIENT:YES DATE OFFERED:06/28/2017 REASON:PATIENT DECLINED TEST ACCEPTED:NO REASON:PATIENT DECLINED JEW [id number] NONE NO BUDDHISM BELIEFS THAT WOULD IMPACT HEALTH CARE. LANGUAGE LANGUAGES SPOKEN:HUNGARIAN EDUCATION LEVEL OF EDUCATION:HIGH SCHOOL GED LEARNING BARRIERS / SPECIAL NEEDS CHANGE FROM LAST VISIT?NO BARRIERS TO LEARNING?NO HEARING IMPAIRED?NO TINITUS VISION IMPAIRED?YES :CORRECTIVE LENSES COGNITIVELY IMPAIRED?NO READINESS TO LEARN?YES LEARNING PREFERENCES?NO LEARNING CAPABILITIES PRESENT?YES EMOTIONAL BARRIERS?NO SPECIAL DEVICES?YES :CANE NEEDED ADVERTISING ACCOUNT MANAGER NEEDED?NO DOMESTIC VIOLENCE DO YOU FEEL SAFE IN YOUR ENVIRONMENT?YES OCCUPATION: DISABLED. DIET: AVOIDS GREASY, FRIED FOODS, DAIRY.TRIES TO EAT SMALLER PORTIONS. EXERCISE: LOWER BACK EXERCISES, WALKS TOLERATED. MARITAL STATUS: .. OTHERS AT HOME: DAUGHTER. - PFS REFERRAL NEEDED?NO CLERGY REFERRAL NEEDED?NO PUBLIC HEALTH REFERRAL NEEDED?NO HAS THE PATIENT BEEN EDUCATED REGARDING HIS/HER PLAN OF CARE?YES HAS THE PATIENT BEEN EDUCATED REGARDING PAIN, THE RISK FOR PAIN, THE IMPORTANCE OF EFFECTIVE PAIN MANAGEMENT, AND THE PAIN ASSESSMENT PROCESS?YES ADVANCE DIRECTIVE ADVANCE DIRECTIVE DISCUSSED WITH PATIENT:YES PT STATES SHE HAS A HEALTH CARE PROXY-RAH ROSARIO [phone] HOSPITALIZATION/MAJOR DIAGNOSTIC PROCEDURE SURGICAL RELATED REVIEW OF SYSTEMS CONSTITUTIONAL: ANY RECENT FEVER NO . CHILLS NO . WEIGHT CHANGE OF UNKNOWN REASONS NO . GASTROENTEROLOGY: NEW UNEXPLAINABLE CHANGES IN BOWEL CONTROL NO . CONSTIPATION NO . GENITOURINARY: ANY NEW CHANGE IN BLADDER CONTROL? NO . NEUROLOGY: NEW ONSET DIZZINESS OR NEUROLOGICAL CHANGES NOT MENTIONED NO . NEW NUMBNESS OR PAIN PATTERNS NOT MENTIONED AND PERTINENT TO TODAY'S VISIT NO . CARDIOLOGY: NEW CHEST PRESSURE NO . PATIENT DENIES NO . RESPIRATORY: UNEXPLAINABLE COUGH NO . NEW SHORTNESS OF BREATH NO . VITAL SIGNS WT 125 LBS, HT 64 IN, BMI 21.45 INDEX, BP 126/55 MM HG, HR 85 /MIN, RR 18 /MIN, TEMP 98.3 F, OXYGEN SAT % 96%, SAFE IN ENV? (Y/N) YEST.CARYN CORLEY. EXAMINATION GENERAL EXAMINATION: GENERAL AWAKE,ALERT ,PLEASANT . PSYCH AFFECT NORMAL . LUNGS: LUNG LINDSEY ARE CLEAR TO AUSCULTATION BILATERALLY. GOOD MOVEMENT OF AIR . HEART: S1, S2 IN A REGULAR RATE AND RHYTHM. NO SIGNIFICANT MURMURS, RUBS OR GALLOPS NOTED . MUSCULOSKELETAL: MUSCLE STRENGTH TESTING 5/5 BILATERAL LOWER EXTREMITIES. LUMBAR: PALPATION: + FOR PAIN OVER L/S SPINE. + FOR PAIN OVER L/S PARASPINALS WELL-HEALED SURGICAL SCAR L/S AXIS. DIAGNOSTIC TESTS REVIEWEDMRI L/S SPINE . 06/2019. ASSESSMENTS SPONDYLOSIS WITHOUT MYELOPATHY OR RADICULOPATHY, LUMBAR REGION - M47.816 (PRIMARY) OTHER CHRONIC PAIN - G89.29 POST LAMINECTOMY SYNDROME - M96.1 TREATMENT SPONDYLOSIS WITHOUT MYELOPATHY OR RADICULOPATHY, LUMBAR REGION NOTES: BILATERAL DIAGNOSTIC LUMBAR FACET BLOCK L4-5,L5-S1 PRINTED AND REVIEWED PRE PROCEDURE WITH PATIENT EZEKIEL CORLEY. OTHER CHRONIC PAIN PAIN PROCEDURE LOGDATE OF PROCEDURE1PROCEDURE:BILATERAL DIAGNOSTIC LUMBAR FACET BLOCK #1 L4-L5,L5-O3UXDMQL OF PRE SEDATE0/0RESULT:GREATER THAN 80% REDUCTION IN PAIN FOR SEVERAL HOURS POSTPROCEDURESLUIS SANTOS 07/28/2020 5:14:14 PM > ANDREA, CAN YOU PLEASE PUT THE PROCEDURE RESULTS IN THIS PROCEDURE LOG? THANKS. PROCEDURE CODES FA211 ESTABILISHED PATIENT [facility] FACILITY CHARGE DISPOSITION & COMMUNICATION FOLLOW UP POST PROCEDURE (REASON: BILATERAL DIAGNOSTIC LUMBAR FACET BLOCK L4-5,L5-S1) ELECTRONICALLY SIGNED BY CARIDAD HENLEY ON 07/30/2020 AT 12:37 PM EDT DISCLAIMER : THIS IS A VISIT SUMMARY EXTRACTED FROM THE [employer] CHART. IT IS NOT A COPY OF THE [employer] PROGRESS NOTE. ZINA
--- NOTE | 2020-07-31 07:04 | ECWPNPC ---
PATIENT NAME: LOGAN CRAVEN : 1960 GENDER: FEMALE VISIT DATE: 07/27/2020 DISCHARGE DATE: 07/27/20 1058 VISIT LOCKED DATE TIME: PHYSICIAN: ANDREA ELIAS PHYSICIAN PAGER NO: ACTIVE RESOURCE: ANDREA ELIAS REASON FOR APPOINTMENT 1. POST BILATERAL DIAGNOSTIC LUMBAR FACET BLOCK #1 L4-L5, L5-S1 HISTORY OF PRESENT ILLNESS GENERAL: HERE FOR POST PROCEDURE FOLLOW-UP. HAD BILATERAL L4-5, L5-S1 LUMBAR DIAGNOSTIC FACET BLOCK ON 07/12/2020. HOURLY DIARY IS REVIEWED AND SHOWS GREATER THAN 80% REDUCTION IN PAIN FOR SEVERAL DAYS. PAIN IS BEGINNING TO RETURN TO BASELINE. DISCUSSED DIAGNOSTIC TESTING #2 AND PROCEEDING WITH RADIOFREQUENCY.-. FALL RISK SCREENING: SCREENING : NO FALLS REPORTED IN THE LAST YEAR. PAIN SCREENING: PATIENT HAS A COMPLAINT OF ACUTE OR CHRONIC PAIN :YES LOCATION OF PAIN:LOW BACK INTENSITY OF PAIN (SCALE OF 1 TO 10):4 WHAT DOES YOUR PAIN FEEL LIKE:CONTINOUS DURATION:CONSTANT PAIN IS INCREASED BY:ACTIVITIES, PROLONGED STANDING, OTHERS WALKING PAIN IS DECREASED BY:OTHERS RESTING AND HEAT AND ICE NURSING NOTE: -. PAIN CENTER INTAKE QUESTIONS: DO YOU HAVE A HISTORY OF MRSA? :NO DO YOU TAKE A BLOOD THINNERS? :YES ELMIRON DO YOU HAVE ANY BLEEDING DISORDERS? :NO ANY NEW NUMBNESS OR WEAKNESS IN YOUR LEGS OR ARMS? :NO ANY PACEMAKER,DEFIBRILLATOR, OR DORSAL COLUMN STIMULATOR? :NO DO YOU HAVE ANY RASHES OR OPEN SORES? :NO ARE YOU ALLERGIC TO IV DYE? :NO ARE YOU DIABETIC? :NO ANY NEW PROBLEMS WITH YOUR MEDICATIONS? :NO HAVE YOU RECEIVED A VACCINE IN THE PAST 30 DAYS? :NO DO YOU PLAN TO RECEIVE A VACCINE IN THE NEXT 21 DAYS? :NO DO YOU NEED ANY PRESCRIPTION? :NO DO YOU TAKE ANY IMMUNOSUPPRESSIVE MEDICATIONS? :YES LEFLUNOMIDE AND ENBREL SURECLICK IS THERE A CHANCE YOU COULD BE ? :NO ARE YOU BREAST FEEDING? :NO CURRENT MEDICATIONS TAKING VITAMIN D 2000 UNIT CAPSULE 1 TABLET ORALLY ONCE A DAY TAKING CANE . MISCELLANEOUS QUAD CANE _ QD R27 TAKING CALCIUM 600 + D 600-400 MG-UNIT TABLET 1 TABLET ORALLY ONCE A DAY TAKING ELMIRON 100 MG CAPSULE 1 CAPSULE ON AN EMPTY STOMACH 1 TABLET THREE A DAY TAKING LEFLUNOMIDE 20 MG TABLET 1 TABLET ORALLY ONCE A DAY TAKING ENBREL SURECLICK 50 MG/ML SOLUTION AUTO-INJECTOR DIRECTED SUBCUTANEOUS ONCE A WEEK TAKING CYANOCOBALAMIN 500 MCG TABLET 1 TABLET ORALLY 1 EVERY 5 DAYS TAKING CARAFATE 1 GM TABLET 1 TABLET ON AN EMPTY STOMACH ORALLY AC TID TAKING ATORVASTATIN CALCIUM 20 MG TABLET 1 TABLET ORALLY ONCE A DAY TAKING FISH OIL 1000 MG CAPSULE 1 CAPSULE ORALLY ONCE A DAY TAKING ESCITALOPRAM OXALATE 10 MG TABLET 15MG 1.5 TABLET ORALLY ONCE A DAY TAKING ESOMEPRAZOLE MAGNESIUM 40 MG CAPSULE DELAYED RELEASE 1 CAPSULE ORALLY AC BID TAKING CARISOPRODOL 350 MG TABLET 1 TABLET NEEDED ORALLY TID PRN, MDD 3 TAKING HYDROCODONE-ACETAMINOPHEN 5-325 MG TABLET 1 TABLET NEEDED ORALLY TID PRN MDD = 3 MEDICATION LIST REVIEWED AND RECONCILED WITH THE PATIENT PAST MEDICAL HISTORY RA/OSTEOARTHRITIS/FIBROMYALGIA NICOTINE ADDICTION-08/2011 FEV1 2.5L (101%)/RATIO 97%-1 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 GERD/DYSPEPSIA-06/2016 NORMAL EGD/COLON/SB CAPSULE-R HYPERLIPIDEMIA 2B ENDOMETRIOSIS 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 SPENCER 2008 FOLLOWS WITH WOMAN TO WOMAN HISTORY OF TUBULAR ADENOMA-NORMAL COLONOSCOPY APRIL 2009 NORMAL COLONOSCOPY C - RANDOM BIOPSIES-[place] COLONOSCOPY 07/18/16 REINDL CERVICAL DJD STATUS POST MULTILEVEL FUSION-01/2010 MRI STABLE ACDF C BASELINE DJD ATROPHIC VAGINITIS OSTEOPENIA VITAMIN D DEFICIENCY CHRONIC SINUSITIS / NONE LATELY RECURRENT UTI / YEARS AGO CHRONIC DIARRHEA STATUS POST LAPAROSCOPIC CHOLECYSTECTOMY JULY 2009//[id number] CHRONIC DRY EYES MEMORY LOSS 2 INSOMNIA, WORK STRESS-12/2011 NORMAL MRI BRAIN S AND NORMAL WORKUP LUMBAR DJD-L2/3 BULGE C L IF HNP C L L2 COMPRESSION, L3/4 SEVERE CCS C B L3 COMPRESSION BY 03/2017 MRI LONG-TERM DISABILITY-TAKEN OOW 08/05/[address] BARAJAS, 01/2014 FILLED OUT LTD PAPERWORK FOR GUARDIAN-PATIENT DEFERRED WCE INSOMNIA, COOMORBID ANXIETY OCULAR SURFACE DISEASE ALLERGIES METHOTREXATE (ANTI-RHEUMATIC): MIGRANES - SIDE EFFECTS CYMBALTA: RACING PLUSE, SHAKES - ALLERGY WELLBUTRIN: PALPITATIONS, SEVERE - ALLERGY SULFA (FOR ALLERGY USE ONLY): NAUSEA/VOMITING - ALLERGY LYRICA: PALPITATIONS - ALLERGY CELEXA: PALPITATIONS - SIDE EFFECTS ORENCIA: ANAPHYLAXIS - ALLERGY TOPICAL ALOE VERA: SEVERE ITCHING CANNOT TOLERATE ASA BASED PRODUCTS/ NSAIDS: HX STOMACH BLEED - CONTRAINDICATION SURGICAL HISTORY LAPAROSCOPY X2 CHRISTINE BTL 1982 TVH [address] SPENCER 2008 VAGINAL CUFF BX. IRMA CHANDLER NP 03/07 CHOLECYSTECTOMY 06/09 ACDF-C4-T1 10/06 R BREAST [id number] 09/2010 ABOVE L CTR- FISH 10/27/14 L4-L5 FUSION/LAMINECTOMY 09/2013 NORMAL EGD/COLON/SB CAPSULE-R 06/2016 FUSION C5 C6 1999 HYSTERECTOMY 1988 BENIGN MOLE REMOVAL 2018 SOCIAL HISTORY GENERAL: TOBACCO USE ARE YOU A:CURRENT SMOKER ARE YOU INTERESTED IN QUITTING?THINKING ABOUT QUITTING COUNSELED THE PATIENT ON SMOKING CESSATION, EDUCATION [id number]/2021 HOW MANY CIGARETTES A DAY DO YOU SMOKE?5 OR LESS HOW SOON AFTER YOU WAKE UP DO YOU SMOKE YOUR FIRST CIGARETTE?AFTER 60 MIN HOW OFTEN DO YOU SMOKE CIGARETTES?EVERY DAY PATIENT COUNSELED ON THE DANGERS OF TOBACCO USE AND URGED TO QUIT:05/26/2020 VAPORNO E-CIGARETTENO LATEX QUESTIONNAIRE LATEX ALLERGY : HAVE YOU EVER DEVELOPED ANY TYPE OF REACTION AFTER HANDLING LATEX PRODUCTS SUCH RUBBER GLOVES, CONDOMS, DIAPHRAGMS, BALLOONS, SOCKS, OR UNDERWEAR?NO LATEX ALLERGY : HAVE YOU EVER DEVELOPED ANY TYPE OF REACTION DURING OR AFTER DENTAL APPOINTMENT, VAGINAL/RECTAL EXAMINATION, SURGICAL PROCEDURE, OR ANY OTHER EXPOSURE?NO LATEX RISK : HAVE YOU EVER HAD ANY DIFFICULTY BREATHING OR HIVES AFTER EATING OR HANDLING ANY FRUITS, OR VEGETABLES; SUCH KIWI, BANANAS, STONE FRUITS, OR CHESTNUTSNO LATEX RISK : DO YOU HAVE A PREVIOUS PERSONAL HISTORY OF MORE THAN NINE SURGERIES, SPINA BIFIDA, OR REPEATED CATHERIZATIONS? YES LATEX RISK : ARE YOU FREQUENTLY EXPOSED TO LATEX PRODUCTS IN YOUR OCCUPATION?NO DATE ASKED : 07/27/2020 ALCOHOL USE: NO, ONCE EVERY 4 MONTH. ALCOHOL SCREENING DID YOU HAVE A DRINK CONTAINING ALCOHOL IN THE PAST YEAR?YES HOW OFTEN DID YOU HAVE A DRINK CONTAINING ALCOHOL IN THE PAST YEAR?MONTHLY OR LESS (1 POINT) POINTS1 INTERPRETATIONNEGATIVE RECREATIONAL DRUG USE DRUG USE?NO CAFFEINE CAFFEINE USE?YES 2-3 DAILY SEXUAL HX HAD SEX IN THE LAST 12 MONTHS (VAGINAL, ORAL, OR ANAL)?NO HAVE YOU EVER HAD AN STD?NO HIV / HEP-C SCREENING HIV TEST OFFERED TO PATIENT:YES DATE OFFERED:06/28/2017 TEST ACCEPTED:NO HEP-C TEST OFFERED TO PATIENT:YES DATE OFFERED:06/28/2017 REASON:PATIENT DECLINED TEST ACCEPTED:NO REASON:PATIENT DECLINED TAOISM [id number] NONE NO MOSQUE BELIEFS THAT WOULD IMPACT HEALTH CARE. LANGUAGE LANGUAGES SPOKEN:NEPALI EDUCATION LEVEL OF EDUCATION:HIGH SCHOOL GED LEARNING BARRIERS / SPECIAL NEEDS CHANGE FROM LAST VISIT?NO BARRIERS TO LEARNING?NO HEARING IMPAIRED?NO TINITUS VISION IMPAIRED?YES :CORRECTIVE LENSES COGNITIVELY IMPAIRED?NO READINESS TO LEARN?YES LEARNING PREFERENCES?NO LEARNING CAPABILITIES PRESENT?YES EMOTIONAL BARRIERS?NO SPECIAL DEVICES?YES :CANE NEEDED AUTO TIRE RECAPPER NEEDED?NO DOMESTIC VIOLENCE DO YOU FEEL SAFE IN YOUR ENVIRONMENT?YES OCCUPATION: DISABLED. DIET: AVOIDS GREASY, FRIED FOODS, DAIRY.TRIES TO EAT SMALLER PORTIONS. EXERCISE: LOWER BACK EXERCISES, WALKS TOLERATED. MARITAL STATUS: .. OTHERS AT HOME: DAUGHTER. - PFS REFERRAL NEEDED?NO CLERGY REFERRAL NEEDED?NO PUBLIC HEALTH REFERRAL NEEDED?NO HAS THE PATIENT BEEN EDUCATED REGARDING HIS/HER PLAN OF CARE?YES HAS THE PATIENT BEEN EDUCATED REGARDING PAIN, THE RISK FOR PAIN, THE IMPORTANCE OF EFFECTIVE PAIN MANAGEMENT, AND THE PAIN ASSESSMENT PROCESS?YES ADVANCE DIRECTIVE ADVANCE DIRECTIVE DISCUSSED WITH PATIENT:YES PT STATES SHE HAS A HEALTH CARE PROXY-RAH ROSARIO [phone] HOSPITALIZATION/MAJOR DIAGNOSTIC PROCEDURE SURGICAL RELATED REVIEW OF SYSTEMS CONSTITUTIONAL: ANY RECENT FEVER NO . CHILLS NO . WEIGHT CHANGE OF UNKNOWN REASONS NO . GASTROENTEROLOGY: NEW UNEXPLAINABLE CHANGES IN BOWEL CONTROL NO . CONSTIPATION NO . GENITOURINARY: ANY NEW CHANGE IN BLADDER CONTROL? NO . NEUROLOGY: NEW ONSET DIZZINESS OR NEUROLOGICAL CHANGES NOT MENTIONED NO . NEW NUMBNESS OR PAIN PATTERNS NOT MENTIONED AND PERTINENT TO TODAY'S VISIT NO . CARDIOLOGY: NEW CHEST PRESSURE NO . PATIENT DENIES NO . RESPIRATORY: UNEXPLAINABLE COUGH NO . NEW SHORTNESS OF BREATH NO . VITAL SIGNS WT 125 LBS, HT 64 IN, BMI 21.45 INDEX, BP 126/55 MM HG, HR 85 /MIN, RR 18 /MIN, TEMP 98.3 F, OXYGEN SAT % 96%, SAFE IN ENV? (Y/N) YEST.CARYN CORLEY. EXAMINATION GENERAL EXAMINATION: GENERAL AWAKE,ALERT ,PLEASANT . PSYCH AFFECT NORMAL . LUNGS: LUNG LINDSEY ARE CLEAR TO AUSCULTATION BILATERALLY. GOOD MOVEMENT OF AIR . HEART: S1, S2 IN A REGULAR RATE AND RHYTHM. NO SIGNIFICANT MURMURS, RUBS OR GALLOPS NOTED . MUSCULOSKELETAL: MUSCLE STRENGTH TESTING 5/5 BILATERAL LOWER EXTREMITIES. LUMBAR: PALPATION: + FOR PAIN OVER L/S SPINE. + FOR PAIN OVER L/S PARASPINALS WELL-HEALED SURGICAL SCAR L/S AXIS. DIAGNOSTIC TESTS REVIEWEDMRI L/S SPINE . 06/2019. ASSESSMENTS SPONDYLOSIS WITHOUT MYELOPATHY OR RADICULOPATHY, LUMBAR REGION - M47.816 (PRIMARY) OTHER CHRONIC PAIN - G89.29 POST LAMINECTOMY SYNDROME - M96.1 TREATMENT SPONDYLOSIS WITHOUT MYELOPATHY OR RADICULOPATHY, LUMBAR REGION NOTES: BILATERAL DIAGNOSTIC LUMBAR FACET BLOCK L4-5,L5-S1 PRINTED AND REVIEWED PRE PROCEDURE WITH PATIENT EZEKIEL CORLEY. OTHER CHRONIC PAIN PAIN PROCEDURE LOGDATE OF PROCEDURE1PROCEDURE:BILATERAL DIAGNOSTIC LUMBAR FACET BLOCK #1 L4-L5,L5-W7AKIQLX OF PRE SEDATE0/0RESULT:GREATER THAN 80% REDUCTION IN PAIN FOR SEVERAL HOURS POSTPROCEDURESLUIS SANTOS 07/28/2020 5:14:14 PM > ANDREA, CAN YOU PLEASE PUT THE PROCEDURE RESULTS IN THIS PROCEDURE LOG? THANKS. PROCEDURE CODES FA211 ESTABILISHED PATIENT [facility] F[facility] CHARGE DISPOSITION & COMMUNICATION FOLLOW UP POST PROCEDURE (REASON: BILATERAL DIAGNOSTIC LUMBAR FACET BLOCK L4-5,L5-S1) ELECTRONICALLY SIGNED BY CARIDAD HENLEY ON 07/30/2020 AT 12:37 PM EDT DISCLAIMER : THIS IS A VISIT SUMMARY EXTRACTED FROM THE [employer] CHART. IT IS NOT A COPY OF THE [employer] PROGRESS NOTE. ZINA
--- NOTE | 2020-07-31 07:06 | ECWPNPC ---
PATIENT NAME: LOGAN CRAVEN : 1960 GENDER: FEMALE VISIT DATE: 07/27/2020 DISCHARGE DATE: 07/27/20 1058 VISIT LOCKED DATE TIME: PHYSICIAN: ANDREA ELIAS PHYSICIAN PAGER NO: ACTIVE RESOURCE: ANDREA ELIAS REASON FOR APPOINTMENT 1. POST BILATERAL DIAGNOSTIC LUMBAR FACET BLOCK #1 L4-L5, L5-S1 HISTORY OF PRESENT ILLNESS GENERAL: HERE FOR POST PROCEDURE FOLLOW-UP. HAD BILATERAL L4-5, L5-S1 LUMBAR DIAGNOSTIC FACET BLOCK ON 07/12/2020. HOURLY DIARY IS REVIEWED AND SHOWS GREATER THAN 80% REDUCTION IN PAIN FOR SEVERAL DAYS. PAIN IS BEGINNING TO RETURN TO BASELINE. DISCUSSED DIAGNOSTIC TESTING #2 AND PROCEEDING WITH RADIOFREQUENCY.-. FALL RISK SCREENING: SCREENING : NO FALLS REPORTED IN THE LAST YEAR. PAIN SCREENING: PATIENT HAS A COMPLAINT OF ACUTE OR CHRONIC PAIN :YES LOCATION OF PAIN:LOW BACK INTENSITY OF PAIN (SCALE OF 1 TO 10):4 WHAT DOES YOUR PAIN FEEL LIKE:CONTINOUS DURATION:CONSTANT PAIN IS INCREASED BY:ACTIVITIES, PROLONGED STANDING, OTHERS WALKING PAIN IS DECREASED BY:OTHERS RESTING AND HEAT AND ICE NURSING NOTE: -. PAIN CENTER INTAKE QUESTIONS: DO YOU HAVE A HISTORY OF MRSA? :NO DO YOU TAKE A BLOOD THINNERS? :YES ELMIRON DO YOU HAVE ANY BLEEDING DISORDERS? :NO ANY NEW NUMBNESS OR WEAKNESS IN YOUR LEGS OR ARMS? :NO ANY PACEMAKER,DEFIBRILLATOR, OR DORSAL COLUMN STIMULATOR? :NO DO YOU HAVE ANY RASHES OR OPEN SORES? :NO ARE YOU ALLERGIC TO IV DYE? :NO ARE YOU DIABETIC? :NO ANY NEW PROBLEMS WITH YOUR MEDICATIONS? :NO HAVE YOU RECEIVED A VACCINE IN THE PAST 30 DAYS? :NO DO YOU PLAN TO RECEIVE A VACCINE IN THE NEXT 21 DAYS? :NO DO YOU NEED ANY PRESCRIPTION? :NO DO YOU TAKE ANY IMMUNOSUPPRESSIVE MEDICATIONS? :YES LEFLUNOMIDE AND ENBREL SURECLICK IS THERE A CHANCE YOU COULD BE ? :NO ARE YOU BREAST FEEDING? :NO CURRENT MEDICATIONS TAKING VITAMIN D 2000 UNIT CAPSULE 1 TABLET ORALLY ONCE A DAY TAKING CANE . MISCELLANEOUS QUAD CANE _ QD R27 TAKING CALCIUM 600 + D 600-400 MG-UNIT TABLET 1 TABLET ORALLY ONCE A DAY TAKING ELMIRON 100 MG CAPSULE 1 CAPSULE ON AN EMPTY STOMACH 1 TABLET THREE A DAY TAKING LEFLUNOMIDE 20 MG TABLET 1 TABLET ORALLY ONCE A DAY TAKING ENBREL SURECLICK 50 MG/ML SOLUTION AUTO-INJECTOR DIRECTED SUBCUTANEOUS ONCE A WEEK TAKING CYANOCOBALAMIN 500 MCG TABLET 1 TABLET ORALLY 1 EVERY 5 DAYS TAKING CARAFATE 1 GM TABLET 1 TABLET ON AN EMPTY STOMACH ORALLY AC TID TAKING ATORVASTATIN CALCIUM 20 MG TABLET 1 TABLET ORALLY ONCE A DAY TAKING FISH OIL 1000 MG CAPSULE 1 CAPSULE ORALLY ONCE A DAY TAKING ESCITALOPRAM OXALATE 10 MG TABLET 15MG 1.5 TABLET ORALLY ONCE A DAY TAKING ESOMEPRAZOLE MAGNESIUM 40 MG CAPSULE DELAYED RELEASE 1 CAPSULE ORALLY AC BID TAKING CARISOPRODOL 350 MG TABLET 1 TABLET NEEDED ORALLY TID PRN, MDD 3 TAKING HYDROCODONE-ACETAMINOPHEN 5-325 MG TABLET 1 TABLET NEEDED ORALLY TID PRN MDD = 3 MEDICATION LIST REVIEWED AND RECONCILED WITH THE PATIENT PAST MEDICAL HISTORY RA/OSTEOARTHRITIS/FIBROMYALGIA NICOTINE ADDICTION-08/2011 FEV1 2.5L (101%)/RATIO 97%-1 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 GERD/DYSPEPSIA-06/2016 NORMAL EGD/COLON/SB CAPSULE-R HYPERLIPIDEMIA 2B ENDOMETRIOSIS 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 SPENCER 2008 FOLLOWS WITH WOMAN TO WOMAN HISTORY OF TUBULAR ADENOMA-NORMAL COLONOSCOPY APRIL 2009 NORMAL COLONOSCOPY C - RANDOM BIOPSIES-[place] COLONOSCOPY 07/18/16 REINDL CERVICAL DJD STATUS POST MULTILEVEL FUSION-01/2010 MRI STABLE ACDF C BASELINE DJD ATROPHIC VAGINITIS OSTEOPENIA VITAMIN D DEFICIENCY CHRONIC SINUSITIS / NONE LATELY RECURRENT UTI / YEARS AGO CHRONIC DIARRHEA STATUS POST LAPAROSCOPIC CHOLECYSTECTOMY JULY 2009//[id number] CHRONIC DRY EYES MEMORY LOSS 2 INSOMNIA, WORK STRESS-12/2011 NORMAL MRI BRAIN S AND NORMAL WORKUP LUMBAR DJD-L2/3 BULGE C L IF HNP C L L2 COMPRESSION, L3/4 SEVERE CCS C B L3 COMPRESSION BY 03/2017 MRI LONG-TERM DISABILITY-TAKEN OOW 08/05/[address] BARAJAS, 01/2014 FILLED OUT LTD PAPERWORK FOR GUARDIAN-PATIENT DEFERRED WCE INSOMNIA, COOMORBID ANXIETY OCULAR SURFACE DISEASE ALLERGIES METHOTREXATE (ANTI-RHEUMATIC): MIGRANES - SIDE EFFECTS CYMBALTA: RACING PLUSE, SHAKES - ALLERGY WELLBUTRIN: PALPITATIONS, SEVERE - ALLERGY SULFA (FOR ALLERGY USE ONLY): NAUSEA/VOMITING - ALLERGY LYRICA: PALPITATIONS - ALLERGY CELEXA: PALPITATIONS - SIDE EFFECTS ORENCIA: ANAPHYLAXIS - ALLERGY TOPICAL ALOE VERA: SEVERE ITCHING CANNOT TOLERATE ASA BASED PRODUCTS/ NSAIDS: HX STOMACH BLEED - CONTRAINDICATION SURGICAL HISTORY LAPAROSCOPY X2 CHRISTINE BTL 1982 TVH [address] SPENCER 2008 VAGINAL CUFF BX. IRMA CHANDLER NP 03/07 CHOLECYSTECTOMY 06/09 ACDF-C4-T1 10/06 R BREAST [id number] 09/2010 ABOVE L CTR- FISH 10/27/14 L4-L5 FUSION/LAMINECTOMY 09/2013 NORMAL EGD/COLON/SB CAPSULE-R 06/2016 FUSION C5 C6 1999 HYSTERECTOMY 1988 BENIGN MOLE REMOVAL 2018 SOCIAL HISTORY GENERAL: TOBACCO USE ARE YOU A:CURRENT SMOKER ARE YOU INTERESTED IN QUITTING?THINKING ABOUT QUITTING COUNSELED THE PATIENT ON SMOKING CESSATION, EDUCATION [id number]/30/2021 HOW MANY CIGARETTES A DAY DO YOU SMOKE?5 OR LESS HOW SOON AFTER YOU WAKE UP DO YOU SMOKE YOUR FIRST CIGARETTE?AFTER 60 MIN HOW OFTEN DO YOU SMOKE CIGARETTES?EVERY DAY PATIENT COUNSELED ON THE DANGERS OF TOBACCO USE AND URGED TO QUIT:05/26/2020 VAPORNO E-CIGARETTENO LATEX QUESTIONNAIRE LATEX ALLERGY : HAVE YOU EVER DEVELOPED ANY TYPE OF REACTION AFTER HANDLING LATEX PRODUCTS SUCH RUBBER GLOVES, CONDOMS, DIAPHRAGMS, BALLOONS, SOCKS, OR UNDERWEAR?NO LATEX ALLERGY : HAVE YOU EVER DEVELOPED ANY TYPE OF REACTION DURING OR AFTER DENTAL APPOINTMENT, VAGINAL/RECTAL EXAMINATION, SURGICAL PROCEDURE, OR ANY OTHER EXPOSURE?NO LATEX RISK : HAVE YOU EVER HAD ANY DIFFICULTY BREATHING OR HIVES AFTER EATING OR HANDLING ANY FRUITS, OR VEGETABLES; SUCH KIWI, BANANAS, STONE FRUITS, OR CHESTNUTSNO LATEX RISK : DO YOU HAVE A PREVIOUS PERSONAL HISTORY OF MORE THAN NINE SURGERIES, SPINA BIFIDA, OR REPEATED CATHERIZATIONS? YES LATEX RISK : ARE YOU FREQUENTLY EXPOSED TO LATEX PRODUCTS IN YOUR OCCUPATION?NO DATE ASKED : 07/27/2020 ALCOHOL USE: NO, ONCE EVERY 4 MONTH. ALCOHOL SCREENING DID YOU HAVE A DRINK CONTAINING ALCOHOL IN THE PAST YEAR?YES HOW OFTEN DID YOU HAVE A DRINK CONTAINING ALCOHOL IN THE PAST YEAR?MONTHLY OR LESS (1 POINT) POINTS1 INTERPRETATIONNEGATIVE RECREATIONAL DRUG USE DRUG USE?NO CAFFEINE CAFFEINE USE?YES 2-3 DAILY SEXUAL HX HAD SEX IN THE LAST 12 MONTHS (VAGINAL, ORAL, OR ANAL)?NO HAVE YOU EVER HAD AN STD?NO HIV / HEP-C SCREENING HIV TEST OFFERED TO PATIENT:YES DATE OFFERED:06/28/2017 TEST ACCEPTED:NO HEP-C TEST OFFERED TO PATIENT:YES DATE OFFERED:06/28/2017 REASON:PATIENT DECLINED TEST ACCEPTED:NO REASON:PATIENT DECLINED YARSANI [id number] NONE NO RESTORATIONIST BELIEFS THAT WOULD IMPACT HEALTH CARE. LANGUAGE LANGUAGES SPOKEN:NEPALI EDUCATION LEVEL OF EDUCATION:HIGH SCHOOL GED LEARNING BARRIERS / SPECIAL NEEDS CHANGE FROM LAST VISIT?NO BARRIERS TO LEARNING?NO HEARING IMPAIRED?NO TINITUS VISION IMPAIRED?YES :CORRECTIVE LENSES COGNITIVELY IMPAIRED?NO READINESS TO LEARN?YES LEARNING PREFERENCES?NO LEARNING CAPABILITIES PRESENT?YES EMOTIONAL BARRIERS?NO SPECIAL DEVICES?YES :CANE NEEDED RAILWAY EQUIPMENT OPERATOR NEEDED?NO DOMESTIC VIOLENCE DO YOU FEEL SAFE IN YOUR ENVIRONMENT?YES OCCUPATION: DISABLED. DIET: AVOIDS GREASY, FRIED FOODS, DAIRY.TRIES TO EAT SMALLER PORTIONS. EXERCISE: LOWER BACK EXERCISES, WALKS TOLERATED. MARITAL STATUS: .. OTHERS AT HOME: DAUGHTER. - PFS REFERRAL NEEDED?NO CLERGY REFERRAL NEEDED?NO PUBLIC HEALTH REFERRAL NEEDED?NO HAS THE PATIENT BEEN EDUCATED REGARDING HIS/HER PLAN OF CARE?YES HAS THE PATIENT BEEN EDUCATED REGARDING PAIN, THE RISK FOR PAIN, THE IMPORTANCE OF EFFECTIVE PAIN MANAGEMENT, AND THE PAIN ASSESSMENT PROCESS?YES ADVANCE DIRECTIVE ADVANCE DIRECTIVE DISCUSSED WITH PATIENT:YES PT STATES SHE HAS A HEALTH CARE PROXY-RAH ROSARIO [phone] HOSPITALIZATION/MAJOR DIAGNOSTIC PROCEDURE SURGICAL RELATED REVIEW OF SYSTEMS CONSTITUTIONAL: ANY RECENT FEVER NO . CHILLS NO . WEIGHT CHANGE OF UNKNOWN REASONS NO . GASTROENTEROLOGY: NEW UNEXPLAINABLE CHANGES IN BOWEL CONTROL NO . CONSTIPATION NO . GENITOURINARY: ANY NEW CHANGE IN BLADDER CONTROL? NO . NEUROLOGY: NEW ONSET DIZZINESS OR NEUROLOGICAL CHANGES NOT MENTIONED NO . NEW NUMBNESS OR PAIN PATTERNS NOT MENTIONED AND PERTINENT TO TODAY'S VISIT NO . CARDIOLOGY: NEW CHEST PRESSURE NO . PATIENT DENIES NO . RESPIRATORY: UNEXPLAINABLE COUGH NO . NEW SHORTNESS OF BREATH NO . VITAL SIGNS WT 125 LBS, HT 64 IN, BMI 21.45 INDEX, BP 126/55 MM HG, HR 85 /MIN, RR 18 /MIN, TEMP 98.3 F, OXYGEN SAT % 96%, SAFE IN ENV? (Y/N) YEST.CARYN CORLEY. EXAMINATION GENERAL EXAMINATION: GENERAL AWAKE,ALERT ,PLEASANT . PSYCH AFFECT NORMAL . LUNGS: LUNG LINDSEY ARE CLEAR TO AUSCULTATION BILATERALLY. GOOD MOVEMENT OF AIR . HEART: S1, S2 IN A REGULAR RATE AND RHYTHM. NO SIGNIFICANT MURMURS, RUBS OR GALLOPS NOTED . MUSCULOSKELETAL: MUSCLE STRENGTH TESTING 5/5 BILATERAL LOWER EXTREMITIES. LUMBAR: PALPATION: + FOR PAIN OVER L/S SPINE. + FOR PAIN OVER L/S PARASPINALS WELL-HEALED SURGICAL SCAR L/S AXIS. DIAGNOSTIC TESTS REVIEWEDMRI L/S SPINE . 06/2019. ASSESSMENTS SPONDYLOSIS WITHOUT MYELOPATHY OR RADICULOPATHY, LUMBAR REGION - M47.816 (PRIMARY) OTHER CHRONIC PAIN - G89.29 POST LAMINECTOMY SYNDROME - M96.1 TREATMENT SPONDYLOSIS WITHOUT MYELOPATHY OR RADICULOPATHY, LUMBAR REGION NOTES: BILATERAL DIAGNOSTIC LUMBAR FACET BLOCK L4-5,L5-S1 PRINTED AND REVIEWED PRE PROCEDURE WITH PATIENT EZEKIEL CORLEY. OTHER CHRONIC PAIN PAIN PROCEDURE LOGDATE OF PROCEDURE1PROCEDURE:BILATERAL DIAGNOSTIC LUMBAR FACET BLOCK #1 L4-L5,L5-T3SDVLZI OF PRE SEDATE0/0RESULT:GREATER THAN 80% REDUCTION IN PAIN FOR SEVERAL HOURS POSTPROCEDURESLUIS SANTOS 07/28/2020 5:14:14 PM > ANDREA, CAN YOU PLEASE PUT THE PROCEDURE RESULTS IN THIS PROCEDURE LOG? THANKS. PROCEDURE CODES FA211 ESTABILISHED PATIENT [facility] FACILITY CHARGE DISPOSITION & COMMUNICATION FOLLOW UP POST PROCEDURE (REASON: BILATERAL DIAGNOSTIC LUMBAR FACET BLOCK L4-5,L5-S1) ELECTRONICALLY SIGNED BY CARIDAD HENLEY ON 07/30/2020 AT 12:37 PM EDT DISCLAIMER : THIS IS A VISIT SUMMARY EXTRACTED FROM THE [employer] CHART. IT IS NOT A COPY OF THE [employer] PROGRESS NOTE. ZINA
--- NOTE | 2020-07-31 07:07 | ECWPNPC ---
PATIENT NAME: LOGAN CRAVEN : 1960 GENDER: FEMALE VISIT DATE: 07/27/2020 DISCHARGE DATE: 07/27/20 1058 VISIT LOCKED DATE TIME: PHYSICIAN: ANDREA ELIAS PHYSICIAN PAGER NO: ACTIVE RESOURCE: ANDREA ELIAS REASON FOR APPOINTMENT 1. POST BILATERAL DIAGNOSTIC LUMBAR FACET BLOCK #1 L4-L5, L5-S1 HISTORY OF PRESENT ILLNESS GENERAL: HERE FOR POST PROCEDURE FOLLOW-UP. HAD BILATERAL L4-5, L5-S1 LUMBAR DIAGNOSTIC FACET BLOCK ON 07/12/2020. HOURLY DIARY IS REVIEWED AND SHOWS GREATER THAN 80% REDUCTION IN PAIN FOR SEVERAL DAYS. PAIN IS BEGINNING TO RETURN TO BASELINE. DISCUSSED DIAGNOSTIC TESTING #2 AND PROCEEDING WITH RADIOFREQUENCY.-. FALL RISK SCREENING: SCREENING : NO FALLS REPORTED IN THE LAST YEAR. PAIN SCREENING: PATIENT HAS A COMPLAINT OF ACUTE OR CHRONIC PAIN :YES LOCATION OF PAIN:LOW BACK INTENSITY OF PAIN (SCALE OF 1 TO 10):4 WHAT DOES YOUR PAIN FEEL LIKE:CONTINOUS DURATION:CONSTANT PAIN IS INCREASED BY:ACTIVITIES, PROLONGED STANDING, OTHERS WALKING PAIN IS DECREASED BY:OTHERS RESTING AND HEAT AND ICE NURSING NOTE: -. PAIN CENTER INTAKE QUESTIONS: DO YOU HAVE A HISTORY OF MRSA? :NO DO YOU TAKE A BLOOD THINNERS? :YES ELMIRON DO YOU HAVE ANY BLEEDING DISORDERS? :NO ANY NEW NUMBNESS OR WEAKNESS IN YOUR LEGS OR ARMS? :NO ANY PACEMAKER,DEFIBRILLATOR, OR DORSAL COLUMN STIMULATOR? :NO DO YOU HAVE ANY RASHES OR OPEN SORES? :NO ARE YOU ALLERGIC TO IV DYE? :NO ARE YOU DIABETIC? :NO ANY NEW PROBLEMS WITH YOUR MEDICATIONS? :NO HAVE YOU RECEIVED A VACCINE IN THE PAST 30 DAYS? :NO DO YOU PLAN TO RECEIVE A VACCINE IN THE NEXT 21 DAYS? :NO DO YOU NEED ANY PRESCRIPTION? :NO DO YOU TAKE ANY IMMUNOSUPPRESSIVE MEDICATIONS? :YES LEFLUNOMIDE AND ENBREL SURECLICK IS THERE A CHANCE YOU COULD BE ? :NO ARE YOU BREAST FEEDING? :NO CURRENT MEDICATIONS TAKING VITAMIN D 2000 UNIT CAPSULE 1 TABLET ORALLY ONCE A DAY TAKING CANE . MISCELLANEOUS QUAD CANE _ QD R27 TAKING CALCIUM 600 + D 600-400 MG-UNIT TABLET 1 TABLET ORALLY ONCE A DAY TAKING ELMIRON 100 MG CAPSULE 1 CAPSULE ON AN EMPTY STOMACH 1 TABLET THREE A DAY TAKING LEFLUNOMIDE 20 MG TABLET 1 TABLET ORALLY ONCE A DAY TAKING ENBREL SURECLICK 50 MG/ML SOLUTION AUTO-INJECTOR DIRECTED SUBCUTANEOUS ONCE A WEEK TAKING CYANOCOBALAMIN 500 MCG TABLET 1 TABLET ORALLY 1 EVERY 5 DAYS TAKING CARAFATE 1 GM TABLET 1 TABLET ON AN EMPTY STOMACH ORALLY AC TID TAKING ATORVASTATIN CALCIUM 20 MG TABLET 1 TABLET ORALLY ONCE A DAY TAKING FISH OIL 1000 MG CAPSULE 1 CAPSULE ORALLY ONCE A DAY TAKING ESCITALOPRAM OXALATE 10 MG TABLET 15MG 1.5 TABLET ORALLY ONCE A DAY TAKING ESOMEPRAZOLE MAGNESIUM 40 MG CAPSULE DELAYED RELEASE 1 CAPSULE ORALLY AC BID TAKING CARISOPRODOL 350 MG TABLET 1 TABLET NEEDED ORALLY TID PRN, MDD 3 TAKING HYDROCODONE-ACETAMINOPHEN 5-325 MG TABLET 1 TABLET NEEDED ORALLY TID PRN MDD = 3 MEDICATION LIST REVIEWED AND RECONCILED WITH THE PATIENT PAST MEDICAL HISTORY RA/OSTEOARTHRITIS/FIBROMYALGIA NICOTINE ADDICTION-08/2011 FEV1 2.5L (101%)/RATIO 97%-1 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 GERD/DYSPEPSIA-06/2016 NORMAL EGD/COLON/SB CAPSULE-R HYPERLIPIDEMIA 2B ENDOMETRIOSIS 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 SPENCER 2008 FOLLOWS WITH WOMAN TO WOMAN HISTORY OF TUBULAR ADENOMA-NORMAL COLONOSCOPY APRIL 2009 NORMAL COLONOSCOPY C - RANDOM BIOPSIES-[place] COLONOSCOPY 07/18/16 REINDL CERVICAL DJD STATUS POST MULTILEVEL FUSION-01/2010 MRI STABLE ACDF C BASELINE DJD ATROPHIC VAGINITIS OSTEOPENIA VITAMIN D DEFICIENCY CHRONIC SINUSITIS / NONE LATELY RECURRENT UTI / YEARS AGO CHRONIC DIARRHEA STATUS POST LAPAROSCOPIC CHOLECYSTECTOMY JULY 2009//[id number] CHRONIC DRY EYES MEMORY LOSS 2 INSOMNIA, WORK STRESS-12/2011 NORMAL MRI BRAIN S AND NORMAL WORKUP LUMBAR DJD-L2/3 BULGE C L IF HNP C L L2 COMPRESSION, L3/4 SEVERE CCS C B L3 COMPRESSION BY 03/2017 MRI LONG-TERM DISABILITY-TAKEN OOW 08/05/[address] BARAJAS, 01/2014 FILLED OUT LTD PAPERWORK FOR GUARDIAN-PATIENT DEFERRED WCE INSOMNIA, COOMORBID ANXIETY OCULAR SURFACE DISEASE ALLERGIES METHOTREXATE (ANTI-RHEUMATIC): MIGRANES - SIDE EFFECTS CYMBALTA: RACING PLUSE, SHAKES - ALLERGY WELLBUTRIN: PALPITATIONS, SEVERE - ALLERGY SULFA (FOR ALLERGY USE ONLY): NAUSEA/VOMITING - ALLERGY LYRICA: PALPITATIONS - ALLERGY CELEXA: PALPITATIONS - SIDE EFFECTS ORENCIA: ANAPHYLAXIS - ALLERGY TOPICAL ALOE VERA: SEVERE ITCHING CANNOT TOLERATE ASA BASED PRODUCTS/ NSAIDS: HX STOMACH BLEED - CONTRAINDICATION SURGICAL HISTORY LAPAROSCOPY X2 CHRISTINE BTL 1982 TVH [address] SPENCER 2008 VAGINAL CUFF BX. IRMA CHANDLER NP 03/07 CHOLECYSTECTOMY 06/09 ACDF-C4-T1 10/06 R BREAST [id number] 09/2010 ABOVE L CTR- FISH 10/27/14 L4-L5 FUSION/LAMINECTOMY 09/2013 NORMAL EGD/COLON/SB CAPSULE-R 06/2016 FUSION C5 C6 1999 HYSTERECTOMY 1988 BENIGN MOLE REMOVAL 2018 SOCIAL HISTORY GENERAL: TOBACCO USE ARE YOU A:CURRENT SMOKER ARE YOU INTERESTED IN QUITTING?THINKING ABOUT QUITTING COUNSELED THE PATIENT ON SMOKING CESSATION, EDUCATION [id number]/30/2021 HOW MANY CIGARETTES A DAY DO YOU SMOKE?5 OR LESS HOW SOON AFTER YOU WAKE UP DO YOU SMOKE YOUR FIRST CIGARETTE?AFTER 60 MIN HOW OFTEN DO YOU SMOKE CIGARETTES?EVERY DAY PATIENT COUNSELED ON THE DANGERS OF TOBACCO USE AND URGED TO QUIT:05/26/2020 VAPORNO E-CIGARETTENO LATEX QUESTIONNAIRE LATEX ALLERGY : HAVE YOU EVER DEVELOPED ANY TYPE OF REACTION AFTER HANDLING LATEX PRODUCTS SUCH RUBBER GLOVES, CONDOMS, DIAPHRAGMS, BALLOONS, SOCKS, OR UNDERWEAR?NO LATEX ALLERGY : HAVE YOU EVER DEVELOPED ANY TYPE OF REACTION DURING OR AFTER DENTAL APPOINTMENT, VAGINAL/RECTAL EXAMINATION, SURGICAL PROCEDURE, OR ANY OTHER EXPOSURE?NO LATEX RISK : HAVE YOU EVER HAD ANY DIFFICULTY BREATHING OR HIVES AFTER EATING OR HANDLING ANY FRUITS, OR VEGETABLES; SUCH KIWI, BANANAS, STONE FRUITS, OR CHESTNUTSNO LATEX RISK : DO YOU HAVE A PREVIOUS PERSONAL HISTORY OF MORE THAN NINE SURGERIES, SPINA BIFIDA, OR REPEATED CATHERIZATIONS? YES LATEX RISK : ARE YOU FREQUENTLY EXPOSED TO LATEX PRODUCTS IN YOUR OCCUPATION?NO DATE ASKED : 07/27/2020 ALCOHOL USE: NO, ONCE EVERY 4 MONTH. ALCOHOL SCREENING DID YOU HAVE A DRINK CONTAINING ALCOHOL IN THE PAST YEAR?YES HOW OFTEN DID YOU HAVE A DRINK CONTAINING ALCOHOL IN THE PAST YEAR?MONTHLY OR LESS (1 POINT) POINTS1 INTERPRETATIONNEGATIVE RECREATIONAL DRUG USE DRUG USE?NO CAFFEINE CAFFEINE USE?YES 2-3 DAILY SEXUAL HX HAD SEX IN THE LAST 12 MONTHS (VAGINAL, ORAL, OR ANAL)?NO HAVE YOU EVER HAD AN STD?NO HIV / HEP-C SCREENING HIV TEST OFFERED TO PATIENT:YES DATE OFFERED:06/28/2017 TEST ACCEPTED:NO HEP-C TEST OFFERED TO PATIENT:YES DATE OFFERED:06/28/2017 REASON:PATIENT DECLINED TEST ACCEPTED:NO REASON:PATIENT DECLINED ORIENTAL ORTHODOX [id number] NONE NO GNOSTICISM BELIEFS THAT WOULD IMPACT HEALTH CARE. LANGUAGE LANGUAGES SPOKEN:FRENCH EDUCATION LEVEL OF EDUCATION:HIGH SCHOOL GED LEARNING BARRIERS / SPECIAL NEEDS CHANGE FROM LAST VISIT?NO BARRIERS TO LEARNING?NO HEARING IMPAIRED?NO TINITUS VISION IMPAIRED?YES :CORRECTIVE LENSES COGNITIVELY IMPAIRED?NO READINESS TO LEARN?YES LEARNING PREFERENCES?NO LEARNING CAPABILITIES PRESENT?YES EMOTIONAL BARRIERS?NO SPECIAL DEVICES?YES :CANE NEEDED SUPERVISOR WELDING EQUIPMENT REPAIRER NEEDED?NO DOMESTIC VIOLENCE DO YOU FEEL SAFE IN YOUR ENVIRONMENT?YES OCCUPATION: DISABLED. DIET: AVOIDS GREASY, FRIED FOODS, DAIRY.TRIES TO EAT SMALLER PORTIONS. EXERCISE: LOWER BACK EXERCISES, WALKS TOLERATED. MARITAL STATUS: .. OTHERS AT HOME: DAUGHTER. - PFS REFERRAL NEEDED?NO CLERGY REFERRAL NEEDED?NO PUBLIC HEALTH REFERRAL NEEDED?NO HAS THE PATIENT BEEN EDUCATED REGARDING HIS/HER PLAN OF CARE?YES HAS THE PATIENT BEEN EDUCATED REGARDING PAIN, THE RISK FOR PAIN, THE IMPORTANCE OF EFFECTIVE PAIN MANAGEMENT, AND THE PAIN ASSESSMENT PROCESS?YES ADVANCE DIRECTIVE ADVANCE DIRECTIVE DISCUSSED WITH PATIENT:YES PT STATES SHE HAS A HEALTH CARE PROXY-RAH ROSARIO [phone] HOSPITALIZATION/MAJOR DIAGNOSTIC PROCEDURE SURGICAL RELATED REVIEW OF SYSTEMS CONSTITUTIONAL: ANY RECENT FEVER NO . CHILLS NO . WEIGHT CHANGE OF UNKNOWN REASONS NO . GASTROENTEROLOGY: NEW UNEXPLAINABLE CHANGES IN BOWEL CONTROL NO . CONSTIPATION NO . GENITOURINARY: ANY NEW CHANGE IN BLADDER CONTROL? NO . NEUROLOGY: NEW ONSET DIZZINESS OR NEUROLOGICAL CHANGES NOT MENTIONED NO . NEW NUMBNESS OR PAIN PATTERNS NOT MENTIONED AND PERTINENT TO TODAY'S VISIT NO . CARDIOLOGY: NEW CHEST PRESSURE NO . PATIENT DENIES NO . RESPIRATORY: UNEXPLAINABLE COUGH NO . NEW SHORTNESS OF BREATH NO . VITAL SIGNS WT 125 LBS, HT 64 IN, BMI 21.45 INDEX, BP 126/55 MM HG, HR 85 /MIN, RR 18 /MIN, TEMP 98.3 F, OXYGEN SAT % 96%, SAFE IN ENV? (Y/N) YEST.CARYN CORLEY. EXAMINATION GENERAL EXAMINATION: GENERAL AWAKE,ALERT ,PLEASANT . PSYCH AFFECT NORMAL . LUNGS: LUNG LINDSEY ARE CLEAR TO AUSCULTATION BILATERALLY. GOOD MOVEMENT OF AIR . HEART: S1, S2 IN A REGULAR RATE AND RHYTHM. NO SIGNIFICANT MURMURS, RUBS OR GALLOPS NOTED . MUSCULOSKELETAL: MUSCLE STRENGTH TESTING 5/5 BILATERAL LOWER EXTREMITIES. LUMBAR: PALPATION: + FOR PAIN OVER L/S SPINE. + FOR PAIN OVER L/S PARASPINALS WELL-HEALED SURGICAL SCAR L/S AXIS. DIAGNOSTIC TESTS REVIEWEDMRI L/S SPINE . 06/2019. ASSESSMENTS SPONDYLOSIS WITHOUT MYELOPATHY OR RADICULOPATHY, LUMBAR REGION - M47.816 (PRIMARY) OTHER CHRONIC PAIN - G89.29 POST LAMINECTOMY SYNDROME - M96.1 TREATMENT SPONDYLOSIS WITHOUT MYELOPATHY OR RADICULOPATHY, LUMBAR REGION NOTES: BILATERAL DIAGNOSTIC LUMBAR FACET BLOCK L4-5,L5-S1 PRINTED AND REVIEWED PRE PROCEDURE WITH PATIENT EZEKIEL CORLEY. OTHER CHRONIC PAIN PAIN PROCEDURE LOGDATE OF PROCEDURE1PROCEDURE:BILATERAL DIAGNOSTIC LUMBAR FACET BLOCK #1 L4-L5,L5-F1PDNUPT OF PRE SEDATE0/0RESULT:GREATER THAN 80% REDUCTION IN PAIN FOR SEVERAL HOURS POSTPROCEDURESLUIS SANTOS 07/28/2020 5:14:14 PM > ANDREA, CAN YOU PLEASE PUT THE PROCEDURE RESULTS IN THIS PROCEDURE LOG? THANKS. PROCEDURE CODES FA211 ESTABILISHED PATIENT [facility] FACILITY CHARGE DISPOSITION & COMMUNICATION FOLLOW UP POST PROCEDURE (REASON: BILATERAL DIAGNOSTIC LUMBAR FACET BLOCK L4-5,L5-S1) ELECTRONICALLY SIGNED BY CARIDAD HENLEY ON 07/30/2020 AT 12:37 PM EDT DISCLAIMER : THIS IS A VISIT SUMMARY EXTRACTED FROM THE [employer] CHART. IT IS NOT A COPY OF THE [employer] PROGRESS NOTE. ZINA
--- NOTE | 2020-07-31 07:09 | ECWPNPC ---
PATIENT NAME: LOGAN CRAVEN : 1960 GENDER: FEMALE VISIT DATE: 07/27/2020 DISCHARGE DATE: 07/27/20 1058 VISIT LOCKED DATE TIME: PHYSICIAN: ANDREA ELIAS PHYSICIAN PAGER NO: ACTIVE RESOURCE: ANDREA ELIAS REASON FOR APPOINTMENT 1. POST BILATERAL DIAGNOSTIC LUMBAR FACET BLOCK #1 L4-L5, L5-S1 HISTORY OF PRESENT ILLNESS GENERAL: HERE FOR POST PROCEDURE FOLLOW-UP. HAD BILATERAL L4-5, L5-S1 LUMBAR DIAGNOSTIC FACET BLOCK ON 07/12/2020. HOURLY DIARY IS REVIEWED AND SHOWS GREATER THAN 80% REDUCTION IN PAIN FOR SEVERAL DAYS. PAIN IS BEGINNING TO RETURN TO BASELINE. DISCUSSED DIAGNOSTIC TESTING #2 AND PROCEEDING WITH RADIOFREQUENCY.-. FALL RISK SCREENING: SCREENING : NO FALLS REPORTED IN THE LAST YEAR. PAIN SCREENING: PATIENT HAS A COMPLAINT OF ACUTE OR CHRONIC PAIN :YES LOCATION OF PAIN:LOW BACK INTENSITY OF PAIN (SCALE OF 1 TO 10):4 WHAT DOES YOUR PAIN FEEL LIKE:CONTINOUS DURATION:CONSTANT PAIN IS INCREASED BY:ACTIVITIES, PROLONGED STANDING, OTHERS WALKING PAIN IS DECREASED BY:OTHERS RESTING AND HEAT AND ICE NURSING NOTE: -. PAIN CENTER INTAKE QUESTIONS: DO YOU HAVE A HISTORY OF MRSA? :NO DO YOU TAKE A BLOOD THINNERS? :YES ELMIRON DO YOU HAVE ANY BLEEDING DISORDERS? :NO ANY NEW NUMBNESS OR WEAKNESS IN YOUR LEGS OR ARMS? :NO ANY PACEMAKER,DEFIBRILLATOR, OR DORSAL COLUMN STIMULATOR? :NO DO YOU HAVE ANY RASHES OR OPEN SORES? :NO ARE YOU ALLERGIC TO IV DYE? :NO ARE YOU DIABETIC? :NO ANY NEW PROBLEMS WITH YOUR MEDICATIONS? :NO HAVE YOU RECEIVED A VACCINE IN THE PAST 30 DAYS? :NO DO YOU PLAN TO RECEIVE A VACCINE IN THE NEXT 21 DAYS? :NO DO YOU NEED ANY PRESCRIPTION? :NO DO YOU TAKE ANY IMMUNOSUPPRESSIVE MEDICATIONS? :YES LEFLUNOMIDE AND ENBREL SURECLICK IS THERE A CHANCE YOU COULD BE ? :NO ARE YOU BREAST FEEDING? :NO CURRENT MEDICATIONS TAKING VITAMIN D 2000 UNIT CAPSULE 1 TABLET ORALLY ONCE A DAY TAKING CANE . MISCELLANEOUS QUAD CANE _ QD R27 TAKING CALCIUM 600 + D 600-400 MG-UNIT TABLET 1 TABLET ORALLY ONCE A DAY TAKING ELMIRON 100 MG CAPSULE 1 CAPSULE ON AN EMPTY STOMACH 1 TABLET THREE A DAY TAKING LEFLUNOMIDE 20 MG TABLET 1 TABLET ORALLY ONCE A DAY TAKING ENBREL SURECLICK 50 MG/ML SOLUTION AUTO-INJECTOR DIRECTED SUBCUTANEOUS ONCE A WEEK TAKING CYANOCOBALAMIN 500 MCG TABLET 1 TABLET ORALLY 1 EVERY 5 DAYS TAKING CARAFATE 1 GM TABLET 1 TABLET ON AN EMPTY STOMACH ORALLY AC TID TAKING ATORVASTATIN CALCIUM 20 MG TABLET 1 TABLET ORALLY ONCE A DAY TAKING FISH OIL 1000 MG CAPSULE 1 CAPSULE ORALLY ONCE A DAY TAKING ESCITALOPRAM OXALATE 10 MG TABLET 15MG 1.5 TABLET ORALLY ONCE A DAY TAKING ESOMEPRAZOLE MAGNESIUM 40 MG CAPSULE DELAYED RELEASE 1 CAPSULE ORALLY AC BID TAKING CARISOPRODOL 350 MG TABLET 1 TABLET NEEDED ORALLY TID PRN, MDD 3 TAKING HYDROCODONE-ACETAMINOPHEN 5-325 MG TABLET 1 TABLET NEEDED ORALLY TID PRN MDD = 3 MEDICATION LIST REVIEWED AND RECONCILED WITH THE PATIENT PAST MEDICAL HISTORY RA/OSTEOARTHRITIS/FIBROMYALGIA NICOTINE ADDICTION-08/2011 FEV1 2.5L (101%)/RATIO 97%-1 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 GERD/DYSPEPSIA-06/2016 NORMAL EGD/COLON/SB CAPSULE-R HYPERLIPIDEMIA 2B ENDOMETRIOSIS 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 SPENCER 2008 FOLLOWS WITH WOMAN TO WOMAN HISTORY OF TUBULAR ADENOMA-NORMAL COLONOSCOPY APRIL 2009 NORMAL COLONOSCOPY C - RANDOM BIOPSIES-[place] COLONOSCOPY 07/18/16 REINDL CERVICAL DJD STATUS POST MULTILEVEL FUSION-01/2010 MRI STABLE ACDF C BASELINE DJD ATROPHIC VAGINITIS OSTEOPENIA VITAMIN D DEFICIENCY CHRONIC SINUSITIS / NONE LATELY RECURRENT UTI / YEARS AGO CHRONIC DIARRHEA STATUS POST LAPAROSCOPIC CHOLECYSTECTOMY JULY 2009//[id number] CHRONIC DRY EYES MEMORY LOSS 2 INSOMNIA, WORK STRESS-12/2011 NORMAL MRI BRAIN S AND NORMAL WORKUP LUMBAR DJD-L2/3 BULGE C L IF HNP C L L2 COMPRESSION, L3/4 SEVERE CCS C B L3 COMPRESSION BY 03/2017 MRI LONG-TERM DISABILITY-TAKEN OOW 08/05/[address] BARAJAS, 01/2014 FILLED OUT LTD PAPERWORK FOR GUARDIAN-PATIENT DEFERRED WCE INSOMNIA, COOMORBID ANXIETY OCULAR SURFACE DISEASE ALLERGIES METHOTREXATE (ANTI-RHEUMATIC): MIGRANES - SIDE EFFECTS CYMBALTA: RACING PLUSE, SHAKES - ALLERGY WELLBUTRIN: PALPITATIONS, SEVERE - ALLERGY SULFA (FOR ALLERGY USE ONLY): NAUSEA/VOMITING - ALLERGY LYRICA: PALPITATIONS - ALLERGY CELEXA: PALPITATIONS - SIDE EFFECTS ORENCIA: ANAPHYLAXIS - ALLERGY TOPICAL ALOE VERA: SEVERE ITCHING CANNOT TOLERATE ASA BASED PRODUCTS/ NSAIDS: HX STOMACH BLEED - CONTRAINDICATION SURGICAL HISTORY LAPAROSCOPY X2 CHRISTINE BTL 1982 TVH [address] SPENCER 2008 VAGINAL CUFF BX. IRMA CHANDLER NP 03/07 CHOLECYSTECTOMY 06/09 ACDF-C4-T1 10/06 R BREAST [id number] 09/2010 ABOVE L CTR- FISH 10/27/14 L4-L5 FUSION/LAMINECTOMY 09/2013 NORMAL EGD/COLON/SB CAPSULE-R 06/2016 FUSION C5 C6 1999 HYSTERECTOMY 1988 BENIGN MOLE REMOVAL 2018 SOCIAL HISTORY GENERAL: TOBACCO USE ARE YOU A:CURRENT SMOKER ARE YOU INTERESTED IN QUITTING?THINKING ABOUT QUITTING COUNSELED THE PATIENT ON SMOKING CESSATION, EDUCATION [id number]/30/2021 HOW MANY CIGARETTES A DAY DO YOU SMOKE?5 OR LESS HOW SOON AFTER YOU WAKE UP DO YOU SMOKE YOUR FIRST CIGARETTE?AFTER 60 MIN HOW OFTEN DO YOU SMOKE CIGARETTES?EVERY DAY PATIENT COUNSELED ON THE DANGERS OF TOBACCO USE AND URGED TO QUIT:05/26/2020 VAPORNO E-CIGARETTENO LATEX QUESTIONNAIRE LATEX ALLERGY : HAVE YOU EVER DEVELOPED ANY TYPE OF REACTION AFTER HANDLING LATEX PRODUCTS SUCH RUBBER GLOVES, CONDOMS, DIAPHRAGMS, BALLOONS, SOCKS, OR UNDERWEAR?NO LATEX ALLERGY : HAVE YOU EVER DEVELOPED ANY TYPE OF REACTION DURING OR AFTER DENTAL APPOINTMENT, VAGINAL/RECTAL EXAMINATION, SURGICAL PROCEDURE, OR ANY OTHER EXPOSURE?NO LATEX RISK : HAVE YOU EVER HAD ANY DIFFICULTY BREATHING OR HIVES AFTER EATING OR HANDLING ANY FRUITS, OR VEGETABLES; SUCH KIWI, BANANAS, STONE FRUITS, OR CHESTNUTSNO LATEX RISK : DO YOU HAVE A PREVIOUS PERSONAL HISTORY OF MORE THAN NINE SURGERIES, SPINA BIFIDA, OR REPEATED CATHERIZATIONS? YES LATEX RISK : ARE YOU FREQUENTLY EXPOSED TO LATEX PRODUCTS IN YOUR OCCUPATION?NO DATE ASKED : 07/27/2020 ALCOHOL USE: NO, ONCE EVERY 4 MONTH. ALCOHOL SCREENING DID YOU HAVE A DRINK CONTAINING ALCOHOL IN THE PAST YEAR?YES HOW OFTEN DID YOU HAVE A DRINK CONTAINING ALCOHOL IN THE PAST YEAR?MONTHLY OR LESS (1 POINT) POINTS1 INTERPRETATIONNEGATIVE RECREATIONAL DRUG USE DRUG USE?NO CAFFEINE CAFFEINE USE?YES 2-3 DAILY SEXUAL HX HAD SEX IN THE LAST 12 MONTHS (VAGINAL, ORAL, OR ANAL)?NO HAVE YOU EVER HAD AN STD?NO HIV / HEP-C SCREENING HIV TEST OFFERED TO PATIENT:YES DATE OFFERED:06/28/2017 TEST ACCEPTED:NO HEP-C TEST OFFERED TO PATIENT:YES DATE OFFERED:06/28/2017 REASON:PATIENT DECLINED TEST ACCEPTED:NO REASON:PATIENT DECLINED RASTAFARIAN [id number] NONE NO ADVENTISM BELIEFS THAT WOULD IMPACT HEALTH CARE. LANGUAGE LANGUAGES SPOKEN:TURKISH EDUCATION LEVEL OF EDUCATION:HIGH SCHOOL GED LEARNING BARRIERS / SPECIAL NEEDS CHANGE FROM LAST VISIT?NO BARRIERS TO LEARNING?NO HEARING IMPAIRED?NO TINITUS VISION IMPAIRED?YES :CORRECTIVE LENSES COGNITIVELY IMPAIRED?NO READINESS TO LEARN?YES LEARNING PREFERENCES?NO LEARNING CAPABILITIES PRESENT?YES EMOTIONAL BARRIERS?NO SPECIAL DEVICES?YES :CANE NEEDED POCKET CUTTER NEEDED?NO DOMESTIC VIOLENCE DO YOU FEEL SAFE IN YOUR ENVIRONMENT?YES OCCUPATION: DISABLED. DIET: AVOIDS GREASY, FRIED FOODS, DAIRY.TRIES TO EAT SMALLER PORTIONS. EXERCISE: LOWER BACK EXERCISES, WALKS TOLERATED. MARITAL STATUS: .. OTHERS AT HOME: DAUGHTER. - PFS REFERRAL NEEDED?NO CLERGY REFERRAL NEEDED?NO PUBLIC HEALTH REFERRAL NEEDED?NO HAS THE PATIENT BEEN EDUCATED REGARDING HIS/HER PLAN OF CARE?YES HAS THE PATIENT BEEN EDUCATED REGARDING PAIN, THE RISK FOR PAIN, THE IMPORTANCE OF EFFECTIVE PAIN MANAGEMENT, AND THE PAIN ASSESSMENT PROCESS?YES ADVANCE DIRECTIVE ADVANCE DIRECTIVE DISCUSSED WITH PATIENT:YES PT STATES SHE HAS A HEALTH CARE PROXY-RAH ROSARIO [phone] HOSPITALIZATION/MAJOR DIAGNOSTIC PROCEDURE SURGICAL RELATED REVIEW OF SYSTEMS CONSTITUTIONAL: ANY RECENT FEVER NO . CHILLS NO . WEIGHT CHANGE OF UNKNOWN REASONS NO . GASTROENTEROLOGY: NEW UNEXPLAINABLE CHANGES IN BOWEL CONTROL NO . CONSTIPATION NO . GENITOURINARY: ANY NEW CHANGE IN BLADDER CONTROL? NO . NEUROLOGY: NEW ONSET DIZZINESS OR NEUROLOGICAL CHANGES NOT MENTIONED NO . NEW NUMBNESS OR PAIN PATTERNS NOT MENTIONED AND PERTINENT TO TODAY'S VISIT NO . CARDIOLOGY: NEW CHEST PRESSURE NO . PATIENT DENIES NO . RESPIRATORY: UNEXPLAINABLE COUGH NO . NEW SHORTNESS OF BREATH NO . VITAL SIGNS WT 125 LBS, HT 64 IN, BMI 21.45 INDEX, BP 126/55 MM HG, HR 85 /MIN, RR 18 /MIN, TEMP 98.3 F, OXYGEN SAT % 96%, SAFE IN ENV? (Y/N) YEST.CARYN CORLEY. EXAMINATION GENERAL EXAMINATION: GENERAL AWAKE,ALERT ,PLEASANT . PSYCH AFFECT NORMAL . LUNGS: LUNG LINDSEY ARE CLEAR TO AUSCULTATION BILATERALLY. GOOD MOVEMENT OF AIR . HEART: S1, S2 IN A REGULAR RATE AND RHYTHM. NO SIGNIFICANT MURMURS, RUBS OR GALLOPS NOTED . MUSCULOSKELETAL: MUSCLE STRENGTH TESTING 5/5 BILATERAL LOWER EXTREMITIES. LUMBAR: PALPATION: + FOR PAIN OVER L/S SPINE. + FOR PAIN OVER L/S PARASPINALS WELL-HEALED SURGICAL SCAR L/S AXIS. DIAGNOSTIC TESTS REVIEWEDMRI L/S SPINE . 06/2019. ASSESSMENTS SPONDYLOSIS WITHOUT MYELOPATHY OR RADICULOPATHY, LUMBAR REGION - M47.816 (PRIMARY) OTHER CHRONIC PAIN - G89.29 POST LAMINECTOMY SYNDROME - M96.1 TREATMENT SPONDYLOSIS WITHOUT MYELOPATHY OR RADICULOPATHY, LUMBAR REGION NOTES: BILATERAL DIAGNOSTIC LUMBAR FACET BLOCK L4-5,L5-S1 PRINTED AND REVIEWED PRE PROCEDURE WITH PATIENT EZEKIEL CORLEY. OTHER CHRONIC PAIN PAIN PROCEDURE LOGDATE OF PROCEDURE1PROCEDURE:BILATERAL DIAGNOSTIC LUMBAR FACET BLOCK #1 L4-L5,L5-Z5QMEDTB OF PRE SEDATE0/0RESULT:GREATER THAN 80% REDUCTION IN PAIN FOR SEVERAL HOURS POSTPROCEDURESLUIS SANTOS 07/28/2020 5:14:14 PM > ANDREA, CAN YOU PLEASE PUT THE PROCEDURE RESULTS IN THIS PROCEDURE LOG? THANKS. PROCEDURE CODES FA211 ESTABILISHED PATIENT [facility] FACILITY CHARGE DISPOSITION & COMMUNICATION FOLLOW UP POST PROCEDURE (REASON: BILATERAL DIAGNOSTIC LUMBAR FACET BLOCK L4-5,L5-S1) ELECTRONICALLY SIGNED BY CARIDAD HENLEY ON 07/30/2020 AT 12:37 PM EDT DISCLAIMER : THIS IS A VISIT SUMMARY EXTRACTED FROM THE [employer] CHART. IT IS NOT A COPY OF THE [employer] PROGRESS NOTE. ZINA
--- NOTE | 2020-07-31 07:11 | ECWPNPC ---
PATIENT NAME: LOGAN CRAVEN : 1960 GENDER: FEMALE VISIT DATE: 07/27/2020 DISCHARGE DATE: 07/27/20 1058 VISIT LOCKED DATE TIME: PHYSICIAN: ANDREA ELIAS PHYSICIAN PAGER NO: ACTIVE RESOURCE: ANDREA ELIAS REASON FOR APPOINTMENT 1. POST BILATERAL DIAGNOSTIC LUMBAR FACET BLOCK #1 L4-L5, L5-S1 HISTORY OF PRESENT ILLNESS GENERAL: HERE FOR POST PROCEDURE FOLLOW-UP. HAD BILATERAL L4-5, L5-S1 LUMBAR DIAGNOSTIC FACET BLOCK ON 07/12/2020. HOURLY DIARY IS REVIEWED AND SHOWS GREATER THAN 80% REDUCTION IN PAIN FOR SEVERAL DAYS. PAIN IS BEGINNING TO RETURN TO BASELINE. DISCUSSED DIAGNOSTIC TESTING #2 AND PROCEEDING WITH RADIOFREQUENCY.-. FALL RISK SCREENING: SCREENING : NO FALLS REPORTED IN THE LAST YEAR. PAIN SCREENING: PATIENT HAS A COMPLAINT OF ACUTE OR CHRONIC PAIN :YES LOCATION OF PAIN:LOW BACK INTENSITY OF PAIN (SCALE OF 1 TO 10):4 WHAT DOES YOUR PAIN FEEL LIKE:CONTINOUS DURATION:CONSTANT PAIN IS INCREASED BY:ACTIVITIES, PROLONGED STANDING, OTHERS WALKING PAIN IS DECREASED BY:OTHERS RESTING AND HEAT AND ICE NURSING NOTE: -. PAIN CENTER INTAKE QUESTIONS: DO YOU HAVE A HISTORY OF MRSA? :NO DO YOU TAKE A BLOOD THINNERS? :YES ELMIRON DO YOU HAVE ANY BLEEDING DISORDERS? :NO ANY NEW NUMBNESS OR WEAKNESS IN YOUR LEGS OR ARMS? :NO ANY PACEMAKER,DEFIBRILLATOR, OR DORSAL COLUMN STIMULATOR? :NO DO YOU HAVE ANY RASHES OR OPEN SORES? :NO ARE YOU ALLERGIC TO IV DYE? :NO ARE YOU DIABETIC? :NO ANY NEW PROBLEMS WITH YOUR MEDICATIONS? :NO HAVE YOU RECEIVED A VACCINE IN THE PAST 30 DAYS? :NO DO YOU PLAN TO RECEIVE A VACCINE IN THE NEXT 21 DAYS? :NO DO YOU NEED ANY PRESCRIPTION? :NO DO YOU TAKE ANY IMMUNOSUPPRESSIVE MEDICATIONS? :YES LEFLUNOMIDE AND ENBREL SURECLICK IS THERE A CHANCE YOU COULD BE ? :NO ARE YOU BREAST FEEDING? :NO CURRENT MEDICATIONS TAKING VITAMIN D 2000 UNIT CAPSULE 1 TABLET ORALLY ONCE A DAY TAKING CANE . MISCELLANEOUS QUAD CANE _ QD R27 TAKING CALCIUM 600 + D 600-400 MG-UNIT TABLET 1 TABLET ORALLY ONCE A DAY TAKING ELMIRON 100 MG CAPSULE 1 CAPSULE ON AN EMPTY STOMACH 1 TABLET THREE A DAY TAKING LEFLUNOMIDE 20 MG TABLET 1 TABLET ORALLY ONCE A DAY TAKING ENBREL SURECLICK 50 MG/ML SOLUTION AUTO-INJECTOR DIRECTED SUBCUTANEOUS ONCE A WEEK TAKING CYANOCOBALAMIN 500 MCG TABLET 1 TABLET ORALLY 1 EVERY 5 DAYS TAKING CARAFATE 1 GM TABLET 1 TABLET ON AN EMPTY STOMACH ORALLY AC TID TAKING ATORVASTATIN CALCIUM 20 MG TABLET 1 TABLET ORALLY ONCE A DAY TAKING FISH OIL 1000 MG CAPSULE 1 CAPSULE ORALLY ONCE A DAY TAKING ESCITALOPRAM OXALATE 10 MG TABLET 15MG 1.5 TABLET ORALLY ONCE A DAY TAKING ESOMEPRAZOLE MAGNESIUM 40 MG CAPSULE DELAYED RELEASE 1 CAPSULE ORALLY AC BID TAKING CARISOPRODOL 350 MG TABLET 1 TABLET NEEDED ORALLY TID PRN, MDD 3 TAKING HYDROCODONE-ACETAMINOPHEN 5-325 MG TABLET 1 TABLET NEEDED ORALLY TID PRN MDD = 3 MEDICATION LIST REVIEWED AND RECONCILED WITH THE PATIENT PAST MEDICAL HISTORY RA/OSTEOARTHRITIS/FIBROMYALGIA NICOTINE ADDICTION-08/2011 FEV1 2.5L (101%)/RATIO 97%-1 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 GERD/DYSPEPSIA-06/2016 NORMAL EGD/COLON/SB CAPSULE-R HYPERLIPIDEMIA 2B ENDOMETRIOSIS 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 SPENCER 2008 FOLLOWS WITH WOMAN TO WOMAN HISTORY OF TUBULAR ADENOMA-NORMAL COLONOSCOPY APRIL 2009 NORMAL COLONOSCOPY C - RANDOM BIOPSIES-[place] COLONOSCOPY 07/18/16 REINDL CERVICAL DJD STATUS POST MULTILEVEL FUSION-01/2010 MRI STABLE ACDF C BASELINE DJD ATROPHIC VAGINITIS OSTEOPENIA VITAMIN D DEFICIENCY CHRONIC SINUSITIS / NONE LATELY RECURRENT UTI / YEARS AGO CHRONIC DIARRHEA STATUS POST LAPAROSCOPIC CHOLECYSTECTOMY JULY 2009//[id number] CHRONIC DRY EYES MEMORY LOSS 2 INSOMNIA, WORK STRESS-12/2011 NORMAL MRI BRAIN S AND NORMAL WORKUP LUMBAR DJD-L2/3 BULGE C L IF HNP C L L2 COMPRESSION, L3/4 SEVERE CCS C B L3 COMPRESSION BY 03/2017 MRI LONG-TERM DISABILITY-TAKEN OOW 08/05/[address] BARAJAS, 01/2014 FILLED OUT LTD PAPERWORK FOR GUARDIAN-PATIENT DEFERRED WCE INSOMNIA, COOMORBID ANXIETY OCULAR SURFACE DISEASE ALLERGIES METHOTREXATE (ANTI-RHEUMATIC): MIGRANES - SIDE EFFECTS CYMBALTA: RACING PLUSE, SHAKES - ALLERGY WELLBUTRIN: PALPITATIONS, SEVERE - ALLERGY SULFA (FOR ALLERGY USE ONLY): NAUSEA/VOMITING - ALLERGY LYRICA: PALPITATIONS - ALLERGY CELEXA: PALPITATIONS - SIDE EFFECTS ORENCIA: ANAPHYLAXIS - ALLERGY TOPICAL ALOE VERA: SEVERE ITCHING CANNOT TOLERATE ASA BASED PRODUCTS/ NSAIDS: HX STOMACH BLEED - CONTRAINDICATION SURGICAL HISTORY LAPAROSCOPY X2 CHRISTINE BTL 1982 TVH [address] SPENCER 2008 VAGINAL CUFF BX. IRMA CHANDLER NP 03/07 CHOLECYSTECTOMY 06/09 ACDF-C4-T1 10/06 R BREAST [id number] 09/2010 ABOVE L CTR- FISH 10/27/14 L4-L5 FUSION/LAMINECTOMY 09/2013 NORMAL EGD/COLON/SB CAPSULE-R 06/2016 FUSION C5 C6 1999 HYSTERECTOMY 1988 BENIGN MOLE REMOVAL 2018 SOCIAL HISTORY GENERAL: TOBACCO USE ARE YOU A:CURRENT SMOKER ARE YOU INTERESTED IN QUITTING?THINKING ABOUT QUITTING COUNSELED THE PATIENT ON SMOKING CESSATION, EDUCATION [id number]/30/2021 HOW MANY CIGARETTES A DAY DO YOU SMOKE?5 OR LESS HOW SOON AFTER YOU WAKE UP DO YOU SMOKE YOUR FIRST CIGARETTE?AFTER 60 MIN HOW OFTEN DO YOU SMOKE CIGARETTES?EVERY DAY PATIENT COUNSELED ON THE DANGERS OF TOBACCO USE AND URGED TO QUIT:05/26/2020 VAPORNO E-CIGARETTENO LATEX QUESTIONNAIRE LATEX ALLERGY : HAVE YOU EVER DEVELOPED ANY TYPE OF REACTION AFTER HANDLING LATEX PRODUCTS SUCH RUBBER GLOVES, CONDOMS, DIAPHRAGMS, BALLOONS, SOCKS, OR UNDERWEAR?NO LATEX ALLERGY : HAVE YOU EVER DEVELOPED ANY TYPE OF REACTION DURING OR AFTER DENTAL APPOINTMENT, VAGINAL/RECTAL EXAMINATION, SURGICAL PROCEDURE, OR ANY OTHER EXPOSURE?NO LATEX RISK : HAVE YOU EVER HAD ANY DIFFICULTY BREATHING OR HIVES AFTER EATING OR HANDLING ANY FRUITS, OR VEGETABLES; SUCH KIWI, BANANAS, STONE FRUITS, OR CHESTNUTSNO LATEX RISK : DO YOU HAVE A PREVIOUS PERSONAL HISTORY OF MORE THAN NINE SURGERIES, SPINA BIFIDA, OR REPEATED CATHERIZATIONS? YES LATEX RISK : ARE YOU FREQUENTLY EXPOSED TO LATEX PRODUCTS IN YOUR OCCUPATION?NO DATE ASKED : 07/27/2020 ALCOHOL USE: NO, ONCE EVERY 4 MONTH. ALCOHOL SCREENING DID YOU HAVE A DRINK CONTAINING ALCOHOL IN THE PAST YEAR?YES HOW OFTEN DID YOU HAVE A DRINK CONTAINING ALCOHOL IN THE PAST YEAR?MONTHLY OR LESS (1 POINT) POINTS1 INTERPRETATIONNEGATIVE RECREATIONAL DRUG USE DRUG USE?NO CAFFEINE CAFFEINE USE?YES 2-3 DAILY SEXUAL HX HAD SEX IN THE LAST 12 MONTHS (VAGINAL, ORAL, OR ANAL)?NO HAVE YOU EVER HAD AN STD?NO HIV / HEP-C SCREENING HIV TEST OFFERED TO PATIENT:YES DATE OFFERED:06/28/2017 TEST ACCEPTED:NO HEP-C TEST OFFERED TO PATIENT:YES DATE OFFERED:06/28/2017 REASON:PATIENT DECLINED TEST ACCEPTED:NO REASON:PATIENT DECLINED RASTAFARI [id number] NONE NO TAOIST BELIEFS THAT WOULD IMPACT HEALTH CARE. LANGUAGE LANGUAGES SPOKEN:ROMANSH EDUCATION LEVEL OF EDUCATION:HIGH SCHOOL GED LEARNING BARRIERS / SPECIAL NEEDS CHANGE FROM LAST VISIT?NO BARRIERS TO LEARNING?NO HEARING IMPAIRED?NO TINITUS VISION IMPAIRED?YES :CORRECTIVE LENSES COGNITIVELY IMPAIRED?NO READINESS TO LEARN?YES LEARNING PREFERENCES?NO LEARNING CAPABILITIES PRESENT?YES EMOTIONAL BARRIERS?NO SPECIAL DEVICES?YES :CANE NEEDED TANK CAR RECONDITIONER NEEDED?NO DOMESTIC VIOLENCE DO YOU FEEL SAFE IN YOUR ENVIRONMENT?YES OCCUPATION: DISABLED. DIET: AVOIDS GREASY, FRIED FOODS, DAIRY.TRIES TO EAT SMALLER PORTIONS. EXERCISE: LOWER BACK EXERCISES, WALKS TOLERATED. MARITAL STATUS: .. OTHERS AT HOME: DAUGHTER. - PFS REFERRAL NEEDED?NO CLERGY REFERRAL NEEDED?NO PUBLIC HEALTH REFERRAL NEEDED?NO HAS THE PATIENT BEEN EDUCATED REGARDING HIS/HER PLAN OF CARE?YES HAS THE PATIENT BEEN EDUCATED REGARDING PAIN, THE RISK FOR PAIN, THE IMPORTANCE OF EFFECTIVE PAIN MANAGEMENT, AND THE PAIN ASSESSMENT PROCESS?YES ADVANCE DIRECTIVE ADVANCE DIRECTIVE DISCUSSED WITH PATIENT:YES PT STATES SHE HAS A HEALTH CARE PROXY-RAH ROASRIO [phone] HOSPITALIZATION/MAJOR DIAGNOSTIC PROCEDURE SURGICAL RELATED REVIEW OF SYSTEMS CONSTITUTIONAL: ANY RECENT FEVER NO . CHILLS NO . WEIGHT CHANGE OF UNKNOWN REASONS NO . GASTROENTEROLOGY: NEW UNEXPLAINABLE CHANGES IN BOWEL CONTROL NO . CONSTIPATION NO . GENITOURINARY: ANY NEW CHANGE IN BLADDER CONTROL? NO . NEUROLOGY: NEW ONSET DIZZINESS OR NEUROLOGICAL CHANGES NOT MENTIONED NO . NEW NUMBNESS OR PAIN PATTERNS NOT MENTIONED AND PERTINENT TO TODAY'S VISIT NO . CARDIOLOGY: NEW CHEST PRESSURE NO . PATIENT DENIES NO . RESPIRATORY: UNEXPLAINABLE COUGH NO . NEW SHORTNESS OF BREATH NO . VITAL SIGNS WT 125 LBS, HT 64 IN, BMI 21.45 INDEX, BP 126/55 MM HG, HR 85 /MIN, RR 18 /MIN, TEMP 98.3 F, OXYGEN SAT % 96%, SAFE IN ENV? (Y/N) YEST.CARYN CORLEY. EXAMINATION GENERAL EXAMINATION: GENERAL AWAKE,ALERT ,PLEASANT . PSYCH AFFECT NORMAL . LUNGS: LUNG LINDSEY ARE CLEAR TO AUSCULTATION BILATERALLY. GOOD MOVEMENT OF AIR . HEART: S1, S2 IN A REGULAR RATE AND RHYTHM. NO SIGNIFICANT MURMURS, RUBS OR GALLOPS NOTED . MUSCULOSKELETAL: MUSCLE STRENGTH TESTING 5/5 BILATERAL LOWER EXTREMITIES. LUMBAR: PALPATION: + FOR PAIN OVER L/S SPINE. + FOR PAIN OVER L/S PARASPINALS WELL-HEALED SURGICAL SCAR L/S AXIS. DIAGNOSTIC TESTS REVIEWEDMRI L/S SPINE . 06/2019. ASSESSMENTS SPONDYLOSIS WITHOUT MYELOPATHY OR RADICULOPATHY, LUMBAR REGION - M47.816 (PRIMARY) OTHER CHRONIC PAIN - G89.29 POST LAMINECTOMY SYNDROME - M96.1 TREATMENT SPONDYLOSIS WITHOUT MYELOPATHY OR RADICULOPATHY, LUMBAR REGION NOTES: BILATERAL DIAGNOSTIC LUMBAR FACET BLOCK L4-5,L5-S1 PRINTED AND REVIEWED PRE PROCEDURE WITH PATIENT EZEKIEL CORLEY. OTHER CHRONIC PAIN PAIN PROCEDURE LOGDATE OF PROCEDURE1PROCEDURE:BILATERAL DIAGNOSTIC LUMBAR FACET BLOCK #1 L4-L5,L5-V8BTCKSE OF PRE SEDATE0/0RESULT:GREATER THAN 80% REDUCTION IN PAIN FOR SEVERAL HOURS POSTPROCEDURESLUIS SANTOS 07/28/2020 5:14:14 PM > ANDREA, CAN YOU PLEASE PUT THE PROCEDURE RESULTS IN THIS PROCEDURE LOG? THANKS. PROCEDURE CODES FA211 ESTABILISHED PATIENT [facility] FAC[facility] CHARGE DISPOSITION & COMMUNICATION FOLLOW UP POST PROCEDURE (REASON: BILATERAL DIAGNOSTIC LUMBAR FACET BLOCK L4-5,L5-S1) ELECTRONICALLY SIGNED BY CARIDAD HENLEY ON 07/30/2020 AT 12:37 PM EDT DISCLAIMER : THIS IS A VISIT SUMMARY EXTRACTED FROM THE [employer] CHART. IT IS NOT A COPY OF THE [employer] PROGRESS NOTE. ZINA
--- NOTE | 2020-07-31 07:13 | ECWPNPC ---
PATIENT NAME: LOGAN CRAVEN : 1960 GENDER: FEMALE VISIT DATE: 07/27/2020 DISCHARGE DATE: 07/27/20 1058 VISIT LOCKED DATE TIME: PHYSICIAN: ANRDEA ELIAS PHYSICIAN PAGER NO: ACTIVE RESOURCE: ANDREA ELIAS REASON FOR APPOINTMENT 1. POST BILATERAL DIAGNOSTIC LUMBAR FACET BLOCK #1 L4-L5, L5-S1 HISTORY OF PRESENT ILLNESS GENERAL: HERE FOR POST PROCEDURE FOLLOW-UP. HAD BILATERAL L4-5, L5-S1 LUMBAR DIAGNOSTIC FACET BLOCK ON 07/12/2020. HOURLY DIARY IS REVIEWED AND SHOWS GREATER THAN 80% REDUCTION IN PAIN FOR SEVERAL DAYS. PAIN IS BEGINNING TO RETURN TO BASELINE. DISCUSSED DIAGNOSTIC TESTING #2 AND PROCEEDING WITH RADIOFREQUENCY.-. FALL RISK SCREENING: SCREENING : NO FALLS REPORTED IN THE LAST YEAR. PAIN SCREENING: PATIENT HAS A COMPLAINT OF ACUTE OR CHRONIC PAIN :YES LOCATION OF PAIN:LOW BACK INTENSITY OF PAIN (SCALE OF 1 TO 10):4 WHAT DOES YOUR PAIN FEEL LIKE:CONTINOUS DURATION:CONSTANT PAIN IS INCREASED BY:ACTIVITIES, PROLONGED STANDING, OTHERS WALKING PAIN IS DECREASED BY:OTHERS RESTING AND HEAT AND ICE NURSING NOTE: -. PAIN CENTER INTAKE QUESTIONS: DO YOU HAVE A HISTORY OF MRSA? :NO DO YOU TAKE A BLOOD THINNERS? :YES ELMIRON DO YOU HAVE ANY BLEEDING DISORDERS? :NO ANY NEW NUMBNESS OR WEAKNESS IN YOUR LEGS OR ARMS? :NO ANY PACEMAKER,DEFIBRILLATOR, OR DORSAL COLUMN STIMULATOR? :NO DO YOU HAVE ANY RASHES OR OPEN SORES? :NO ARE YOU ALLERGIC TO IV DYE? :NO ARE YOU DIABETIC? :NO ANY NEW PROBLEMS WITH YOUR MEDICATIONS? :NO HAVE YOU RECEIVED A VACCINE IN THE PAST 30 DAYS? :NO DO YOU PLAN TO RECEIVE A VACCINE IN THE NEXT 21 DAYS? :NO DO YOU NEED ANY PRESCRIPTION? :NO DO YOU TAKE ANY IMMUNOSUPPRESSIVE MEDICATIONS? :YES LEFLUNOMIDE AND ENBREL SURECLICK IS THERE A CHANCE YOU COULD BE ? :NO ARE YOU BREAST FEEDING? :NO CURRENT MEDICATIONS TAKING VITAMIN D 2000 UNIT CAPSULE 1 TABLET ORALLY ONCE A DAY TAKING CANE . MISCELLANEOUS QUAD CANE _ QD R27 TAKING CALCIUM 600 + D 600-400 MG-UNIT TABLET 1 TABLET ORALLY ONCE A DAY TAKING ELMIRON 100 MG CAPSULE 1 CAPSULE ON AN EMPTY STOMACH 1 TABLET THREE A DAY TAKING LEFLUNOMIDE 20 MG TABLET 1 TABLET ORALLY ONCE A DAY TAKING ENBREL SURECLICK 50 MG/ML SOLUTION AUTO-INJECTOR DIRECTED SUBCUTANEOUS ONCE A WEEK TAKING CYANOCOBALAMIN 500 MCG TABLET 1 TABLET ORALLY 1 EVERY 5 DAYS TAKING CARAFATE 1 GM TABLET 1 TABLET ON AN EMPTY STOMACH ORALLY AC TID TAKING ATORVASTATIN CALCIUM 20 MG TABLET 1 TABLET ORALLY ONCE A DAY TAKING FISH OIL 1000 MG CAPSULE 1 CAPSULE ORALLY ONCE A DAY TAKING ESCITALOPRAM OXALATE 10 MG TABLET 15MG 1.5 TABLET ORALLY ONCE A DAY TAKING ESOMEPRAZOLE MAGNESIUM 40 MG CAPSULE DELAYED RELEASE 1 CAPSULE ORALLY AC BID TAKING CARISOPRODOL 350 MG TABLET 1 TABLET NEEDED ORALLY TID PRN, MDD 3 TAKING HYDROCODONE-ACETAMINOPHEN 5-325 MG TABLET 1 TABLET NEEDED ORALLY TID PRN MDD = 3 MEDICATION LIST REVIEWED AND RECONCILED WITH THE PATIENT PAST MEDICAL HISTORY RA/OSTEOARTHRITIS/FIBROMYALGIA NICOTINE ADDICTION-08/2011 FEV1 2.5L (101%)/RATIO 97%-1 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 GERD/DYSPEPSIA-06/2016 NORMAL EGD/COLON/SB CAPSULE-R HYPERLIPIDEMIA 2B ENDOMETRIOSIS 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 SPENCER 2008 FOLLOWS WITH WOMAN TO WOMAN HISTORY OF TUBULAR ADENOMA-NORMAL COLONOSCOPY APRIL 2009 NORMAL COLONOSCOPY C - RANDOM BIOPSIES-[place] COLONOSCOPY 07/18/16 REINDL CERVICAL DJD STATUS POST MULTILEVEL FUSION-01/2010 MRI STABLE ACDF C BASELINE DJD ATROPHIC VAGINITIS OSTEOPENIA VITAMIN D DEFICIENCY CHRONIC SINUSITIS / NONE LATELY RECURRENT UTI / YEARS AGO CHRONIC DIARRHEA STATUS POST LAPAROSCOPIC CHOLECYSTECTOMY JULY 2009//[id number] CHRONIC DRY EYES MEMORY LOSS 2 INSOMNIA, WORK STRESS-12/2011 NORMAL MRI BRAIN S AND NORMAL WORKUP LUMBAR DJD-L2/3 BULGE C L IF HNP C L L2 COMPRESSION, L3/4 SEVERE CCS C B L3 COMPRESSION BY 03/2017 MRI LONG-TERM DISABILITY-TAKEN OOW 08/05/13 [address] BARAJAS, 01/2014 FILLED OUT LTD PAPERWORK FOR GUARDIAN-PATIENT DEFERRED WCE INSOMNIA, COOMORBID ANXIETY OCULAR SURFACE DISEASE ALLERGIES METHOTREXATE (ANTI-RHEUMATIC): MIGRANES - SIDE EFFECTS CYMBALTA: RACING PLUSE, SHAKES - ALLERGY WELLBUTRIN: PALPITATIONS, SEVERE - ALLERGY SULFA (FOR ALLERGY USE ONLY): NAUSEA/VOMITING - ALLERGY LYRICA: PALPITATIONS - ALLERGY CELEXA: PALPITATIONS - SIDE EFFECTS ORENCIA: ANAPHYLAXIS - ALLERGY TOPICAL ALOE VERA: SEVERE ITCHING CANNOT TOLERATE ASA BASED PRODUCTS/ NSAIDS: HX STOMACH BLEED - CONTRAINDICATION SURGICAL HISTORY LAPAROSCOPY X2 CHRISTINE BTL 1982 TVH [address] SPENCER 2008 VAGINAL CUFF BX. IRMA CHANDLER NP 03/07 CHOLECYSTECTOMY 06/09 ACDF-C4-T1 10/06 R BREAST [id number] 09/2010 ABOVE L CTR- FISH 10/27/14 L4-L5 FUSION/LAMINECTOMY 09/2013 NORMAL EGD/COLON/SB CAPSULE-R 06/2016 FUSION C5 C6 1999 HYSTERECTOMY 1988 BENIGN MOLE REMOVAL 2018 SOCIAL HISTORY GENERAL: TOBACCO USE ARE YOU A:CURRENT SMOKER ARE YOU INTERESTED IN QUITTING?THINKING ABOUT QUITTING COUNSELED THE PATIENT ON SMOKING CESSATION, EDUCATION [id number]/30/2021 HOW MANY CIGARETTES A DAY DO YOU SMOKE?5 OR LESS HOW SOON AFTER YOU WAKE UP DO YOU SMOKE YOUR FIRST CIGARETTE?AFTER 60 MIN HOW OFTEN DO YOU SMOKE CIGARETTES?EVERY DAY PATIENT COUNSELED ON THE DANGERS OF TOBACCO USE AND URGED TO QUIT:05/26/2020 VAPORNO E-CIGARETTENO LATEX QUESTIONNAIRE LATEX ALLERGY : HAVE YOU EVER DEVELOPED ANY TYPE OF REACTION AFTER HANDLING LATEX PRODUCTS SUCH RUBBER GLOVES, CONDOMS, DIAPHRAGMS, BALLOONS, SOCKS, OR UNDERWEAR?NO LATEX ALLERGY : HAVE YOU EVER DEVELOPED ANY TYPE OF REACTION DURING OR AFTER DENTAL APPOINTMENT, VAGINAL/RECTAL EXAMINATION, SURGICAL PROCEDURE, OR ANY OTHER EXPOSURE?NO LATEX RISK : HAVE YOU EVER HAD ANY DIFFICULTY BREATHING OR HIVES AFTER EATING OR HANDLING ANY FRUITS, OR VEGETABLES; SUCH KIWI, BANANAS, STONE FRUITS, OR CHESTNUTSNO LATEX RISK : DO YOU HAVE A PREVIOUS PERSONAL HISTORY OF MORE THAN NINE SURGERIES, SPINA BIFIDA, OR REPEATED CATHERIZATIONS? YES LATEX RISK : ARE YOU FREQUENTLY EXPOSED TO LATEX PRODUCTS IN YOUR OCCUPATION?NO DATE ASKED : 07/27/2020 ALCOHOL USE: NO, ONCE EVERY 4 MONTH. ALCOHOL SCREENING DID YOU HAVE A DRINK CONTAINING ALCOHOL IN THE PAST YEAR?YES HOW OFTEN DID YOU HAVE A DRINK CONTAINING ALCOHOL IN THE PAST YEAR?MONTHLY OR LESS (1 POINT) POINTS1 INTERPRETATIONNEGATIVE RECREATIONAL DRUG USE DRUG USE?NO CAFFEINE CAFFEINE USE?YES 2-3 DAILY SEXUAL HX HAD SEX IN THE LAST 12 MONTHS (VAGINAL, ORAL, OR ANAL)?NO HAVE YOU EVER HAD AN STD?NO HIV / HEP-C SCREENING HIV TEST OFFERED TO PATIENT:YES DATE OFFERED:06/28/2017 TEST ACCEPTED:NO HEP-C TEST OFFERED TO PATIENT:YES DATE OFFERED:06/28/2017 REASON:PATIENT DECLINED TEST ACCEPTED:NO REASON:PATIENT DECLINED JUDAISM [id number] NONE NO MUSLIM BELIEFS THAT WOULD IMPACT HEALTH CARE. LANGUAGE LANGUAGES SPOKEN:[place] EDUCATION LEVEL OF EDUCATION:HIGH SCHOOL GED LEARNING BARRIERS / SPECIAL NEEDS CHANGE FROM LAST VISIT?NO BARRIERS TO LEARNING?NO HEARING IMPAIRED?NO TINITUS VISION IMPAIRED?YES :CORRECTIVE LENSES COGNITIVELY IMPAIRED?NO READINESS TO LEARN?YES LEARNING PREFERENCES?NO LEARNING CAPABILITIES PRESENT?YES EMOTIONAL BARRIERS?NO SPECIAL DEVICES?YES :CANE NEEDED LIGHTING SPECIALIST NEEDED?NO DOMESTIC VIOLENCE DO YOU FEEL SAFE IN YOUR ENVIRONMENT?YES OCCUPATION: DISABLED. DIET: AVOIDS GREASY, FRIED FOODS, DAIRY.TRIES TO EAT SMALLER PORTIONS. EXERCISE: LOWER BACK EXERCISES, WALKS TOLERATED. MARITAL STATUS: .. OTHERS AT HOME: DAUGHTER. - PFS REFERRAL NEEDED?NO CLERGY REFERRAL NEEDED?NO PUBLIC HEALTH REFERRAL NEEDED?NO HAS THE PATIENT BEEN EDUCATED REGARDING HIS/HER PLAN OF CARE?YES HAS THE PATIENT BEEN EDUCATED REGARDING PAIN, THE RISK FOR PAIN, THE IMPORTANCE OF EFFECTIVE PAIN MANAGEMENT, AND THE PAIN ASSESSMENT PROCESS?YES ADVANCE DIRECTIVE ADVANCE DIRECTIVE DISCUSSED WITH PATIENT:YES PT STATES SHE HAS A HEALTH CARE PROXY-RAH ROSARIO [phone] HOSPITALIZATION/MAJOR DIAGNOSTIC PROCEDURE SURGICAL RELATED REVIEW OF SYSTEMS CONSTITUTIONAL: ANY RECENT FEVER NO . CHILLS NO . WEIGHT CHANGE OF UNKNOWN REASONS NO . GASTROENTEROLOGY: NEW UNEXPLAINABLE CHANGES IN BOWEL CONTROL NO . CONSTIPATION NO . GENITOURINARY: ANY NEW CHANGE IN BLADDER CONTROL? NO . NEUROLOGY: NEW ONSET DIZZINESS OR NEUROLOGICAL CHANGES NOT MENTIONED NO . NEW NUMBNESS OR PAIN PATTERNS NOT MENTIONED AND PERTINENT TO TODAY'S VISIT NO . CARDIOLOGY: NEW CHEST PRESSURE NO . PATIENT DENIES NO . RESPIRATORY: UNEXPLAINABLE COUGH NO . NEW SHORTNESS OF BREATH NO . VITAL SIGNS WT 125 LBS, HT 64 IN, BMI 21.45 INDEX, BP 126/55 MM HG, HR 85 /MIN, RR 18 /MIN, TEMP 98.3 F, OXYGEN SAT % 96%, SAFE IN ENV? (Y/N) YEST.CARYN CORLEY. EXAMINATION GENERAL EXAMINATION: GENERAL AWAKE,ALERT ,PLEASANT . PSYCH AFFECT NORMAL . LUNGS: LUNG LINDSEY ARE CLEAR TO AUSCULTATION BILATERALLY. GOOD MOVEMENT OF AIR . HEART: S1, S2 IN A REGULAR RATE AND RHYTHM. NO SIGNIFICANT MURMURS, RUBS OR GALLOPS NOTED . MUSCULOSKELETAL: MUSCLE STRENGTH TESTING 5/5 BILATERAL LOWER EXTREMITIES. LUMBAR: PALPATION: + FOR PAIN OVER L/S SPINE. + FOR PAIN OVER L/S PARASPINALS WELL-HEALED SURGICAL SCAR L/S AXIS. DIAGNOSTIC TESTS REVIEWEDMRI L/S SPINE . 06/2019. ASSESSMENTS SPONDYLOSIS WITHOUT MYELOPATHY OR RADICULOPATHY, LUMBAR REGION - M47.816 (PRIMARY) OTHER CHRONIC PAIN - G89.29 POST LAMINECTOMY SYNDROME - M96.1 TREATMENT SPONDYLOSIS WITHOUT MYELOPATHY OR RADICULOPATHY, LUMBAR REGION NOTES: BILATERAL DIAGNOSTIC LUMBAR FACET BLOCK L4-5,L5-S1 PRINTED AND REVIEWED PRE PROCEDURE WITH PATIENT EZEKIEL CORLEY. OTHER CHRONIC PAIN PAIN PROCEDURE LOGDATE OF PROCEDURE1PROCEDURE:BILATERAL DIAGNOSTIC LUMBAR FACET BLOCK #1 L4-L5,L5-S6PPWSXS OF PRE SEDATE0/0RESULT:GREATER THAN 80% REDUCTION IN PAIN FOR SEVERAL HOURS POSTPROCEDURESLUIS SANTOS 07/28/2020 5:14:14 PM > ANDREA, CAN YOU PLEASE PUT THE PROCEDURE RESULTS IN THIS PROCEDURE LOG? THANKS. PROCEDURE CODES FA211 ESTABILISHED PATIENT [facility] FACILITY CHARGE DISPOSITION & COMMUNICATION FOLLOW UP POST PROCEDURE (REASON: BILATERAL DIAGNOSTIC LUMBAR FACET BLOCK L4-5,L5-S1) ELECTRONICALLY SIGNED BY CARIDAD HENLEY ON 07/30/2020 AT 12:37 PM EDT DISCLAIMER : THIS IS A VISIT SUMMARY EXTRACTED FROM THE [employer] CHART. IT IS NOT A COPY OF THE [employer] PROGRESS NOTE. ZINA
--- NOTE | 2020-07-31 07:14 | ECWPNPC ---
PATIENT NAME: LOGAN CRAVEN : 1960 GENDER: FEMALE VISIT DATE: 07/27/2020 DISCHARGE DATE: 07/27/20 1058 VISIT LOCKED DATE TIME: PHYSICIAN: ANDREA ELIAS PHYSICIAN PAGER NO: ACTIVE RESOURCE: ANDREA ELIAS REASON FOR APPOINTMENT 1. POST BILATERAL DIAGNOSTIC LUMBAR FACET BLOCK #1 L4-L5, L5-S1 HISTORY OF PRESENT ILLNESS GENERAL: HERE FOR POST PROCEDURE FOLLOW-UP. HAD BILATERAL L4-5, L5-S1 LUMBAR DIAGNOSTIC FACET BLOCK ON 07/12/2020. HOURLY DIARY IS REVIEWED AND SHOWS GREATER THAN 80% REDUCTION IN PAIN FOR SEVERAL DAYS. PAIN IS BEGINNING TO RETURN TO BASELINE. DISCUSSED DIAGNOSTIC TESTING #2 AND PROCEEDING WITH RADIOFREQUENCY.-. FALL RISK SCREENING: SCREENING : NO FALLS REPORTED IN THE LAST YEAR. PAIN SCREENING: PATIENT HAS A COMPLAINT OF ACUTE OR CHRONIC PAIN :YES LOCATION OF PAIN:LOW BACK INTENSITY OF PAIN (SCALE OF 1 TO 10):4 WHAT DOES YOUR PAIN FEEL LIKE:CONTINOUS DURATION:CONSTANT PAIN IS INCREASED BY:ACTIVITIES, PROLONGED STANDING, OTHERS WALKING PAIN IS DECREASED BY:OTHERS RESTING AND HEAT AND ICE NURSING NOTE: -. PAIN CENTER INTAKE QUESTIONS: DO YOU HAVE A HISTORY OF MRSA? :NO DO YOU TAKE A BLOOD THINNERS? :YES ELMIRON DO YOU HAVE ANY BLEEDING DISORDERS? :NO ANY NEW NUMBNESS OR WEAKNESS IN YOUR LEGS OR ARMS? :NO ANY PACEMAKER,DEFIBRILLATOR, OR DORSAL COLUMN STIMULATOR? :NO DO YOU HAVE ANY RASHES OR OPEN SORES? :NO ARE YOU ALLERGIC TO IV DYE? :NO ARE YOU DIABETIC? :NO ANY NEW PROBLEMS WITH YOUR MEDICATIONS? :NO HAVE YOU RECEIVED A VACCINE IN THE PAST 30 DAYS? :NO DO YOU PLAN TO RECEIVE A VACCINE IN THE NEXT 21 DAYS? :NO DO YOU NEED ANY PRESCRIPTION? :NO DO YOU TAKE ANY IMMUNOSUPPRESSIVE MEDICATIONS? :YES LEFLUNOMIDE AND ENBREL SURECLICK IS THERE A CHANCE YOU COULD BE ? :NO ARE YOU BREAST FEEDING? :NO CURRENT MEDICATIONS TAKING VITAMIN D 2000 UNIT CAPSULE 1 TABLET ORALLY ONCE A DAY TAKING CANE . MISCELLANEOUS QUAD CANE _ QD R27 TAKING CALCIUM 600 + D 600-400 MG-UNIT TABLET 1 TABLET ORALLY ONCE A DAY TAKING ELMIRON 100 MG CAPSULE 1 CAPSULE ON AN EMPTY STOMACH 1 TABLET THREE A DAY TAKING LEFLUNOMIDE 20 MG TABLET 1 TABLET ORALLY ONCE A DAY TAKING ENBREL SURECLICK 50 MG/ML SOLUTION AUTO-INJECTOR DIRECTED SUBCUTANEOUS ONCE A WEEK TAKING CYANOCOBALAMIN 500 MCG TABLET 1 TABLET ORALLY 1 EVERY 5 DAYS TAKING CARAFATE 1 GM TABLET 1 TABLET ON AN EMPTY STOMACH ORALLY AC TID TAKING ATORVASTATIN CALCIUM 20 MG TABLET 1 TABLET ORALLY ONCE A DAY TAKING FISH OIL 1000 MG CAPSULE 1 CAPSULE ORALLY ONCE A DAY TAKING ESCITALOPRAM OXALATE 10 MG TABLET 15MG 1.5 TABLET ORALLY ONCE A DAY TAKING ESOMEPRAZOLE MAGNESIUM 40 MG CAPSULE DELAYED RELEASE 1 CAPSULE ORALLY AC BID TAKING CARISOPRODOL 350 MG TABLET 1 TABLET NEEDED ORALLY TID PRN, MDD 3 TAKING HYDROCODONE-ACETAMINOPHEN 5-325 MG TABLET 1 TABLET NEEDED ORALLY TID PRN MDD = 3 MEDICATION LIST REVIEWED AND RECONCILED WITH THE PATIENT PAST MEDICAL HISTORY RA/OSTEOARTHRITIS/FIBROMYALGIA NICOTINE ADDICTION-08/2011 FEV1 2.5L (101%)/RATIO 97%-1 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 GERD/DYSPEPSIA-06/2016 NORMAL EGD/COLON/SB CAPSULE-R HYPERLIPIDEMIA 2B ENDOMETRIOSIS 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 SPENCER 2008 FOLLOWS WITH WOMAN TO WOMAN HISTORY OF TUBULAR ADENOMA-NORMAL COLONOSCOPY APRIL 2009 NORMAL COLONOSCOPY C - RANDOM BIOPSIES-[place] COLONOSCOPY 07/18/16 REINDL CERVICAL DJD STATUS POST MULTILEVEL FUSION-01/2010 MRI STABLE ACDF C BASELINE DJD ATROPHIC VAGINITIS OSTEOPENIA VITAMIN D DEFICIENCY CHRONIC SINUSITIS / NONE LATELY RECURRENT UTI / YEARS AGO CHRONIC DIARRHEA STATUS POST LAPAROSCOPIC CHOLECYSTECTOMY JULY 2009//[id number] CHRONIC DRY EYES MEMORY LOSS 2 INSOMNIA, WORK STRESS-12/2011 NORMAL MRI BRAIN S AND NORMAL WORKUP LUMBAR DJD-L2/3 BULGE C L IF HNP C L L2 COMPRESSION, L3/4 SEVERE CCS C B L3 COMPRESSION BY 03/2017 MRI LONG-TERM DISABILITY-TAKEN OOW 08/05/[address] BARAJAS, 01/2014 FILLED OUT LTD PAPERWORK FOR GUARDIAN-PATIENT DEFERRED WCE INSOMNIA, COOMORBID ANXIETY OCULAR SURFACE DISEASE ALLERGIES METHOTREXATE (ANTI-RHEUMATIC): MIGRANES - SIDE EFFECTS CYMBALTA: RACING PLUSE, SHAKES - ALLERGY WELLBUTRIN: PALPITATIONS, SEVERE - ALLERGY SULFA (FOR ALLERGY USE ONLY): NAUSEA/VOMITING - ALLERGY LYRICA: PALPITATIONS - ALLERGY CELEXA: PALPITATIONS - SIDE EFFECTS ORENCIA: ANAPHYLAXIS - ALLERGY TOPICAL ALOE VERA: SEVERE ITCHING CANNOT TOLERATE ASA BASED PRODUCTS/ NSAIDS: HX STOMACH BLEED - CONTRAINDICATION SURGICAL HISTORY LAPAROSCOPY X2 CHRISTINE BTL 1982 TVH [address] SPENCER 2008 VAGINAL CUFF BX. IRMA CHANDLER NP 03/07 CHOLECYSTECTOMY 06/09 ACDF-C4-T1 10/06 R BREAST [id number] 09/2010 ABOVE L CTR- FISH 10/27/14 L4-L5 FUSION/LAMINECTOMY 09/2013 NORMAL EGD/COLON/SB CAPSULE-R 06/2016 FUSION C5 C6 1999 HYSTERECTOMY 1988 BENIGN MOLE REMOVAL 2018 SOCIAL HISTORY GENERAL: TOBACCO USE ARE YOU A:CURRENT SMOKER ARE YOU INTERESTED IN QUITTING?THINKING ABOUT QUITTING COUNSELED THE PATIENT ON SMOKING CESSATION, EDUCATION [id number]/30/2021 HOW MANY CIGARETTES A DAY DO YOU SMOKE?5 OR LESS HOW SOON AFTER YOU WAKE UP DO YOU SMOKE YOUR FIRST CIGARETTE?AFTER 60 MIN HOW OFTEN DO YOU SMOKE CIGARETTES?EVERY DAY PATIENT COUNSELED ON THE DANGERS OF TOBACCO USE AND URGED TO QUIT:05/26/2020 VAPORNO E-CIGARETTENO LATEX QUESTIONNAIRE LATEX ALLERGY : HAVE YOU EVER DEVELOPED ANY TYPE OF REACTION AFTER HANDLING LATEX PRODUCTS SUCH RUBBER GLOVES, CONDOMS, DIAPHRAGMS, BALLOONS, SOCKS, OR UNDERWEAR?NO LATEX ALLERGY : HAVE YOU EVER DEVELOPED ANY TYPE OF REACTION DURING OR AFTER DENTAL APPOINTMENT, VAGINAL/RECTAL EXAMINATION, SURGICAL PROCEDURE, OR ANY OTHER EXPOSURE?NO LATEX RISK : HAVE YOU EVER HAD ANY DIFFICULTY BREATHING OR HIVES AFTER EATING OR HANDLING ANY FRUITS, OR VEGETABLES; SUCH KIWI, BANANAS, STONE FRUITS, OR CHESTNUTSNO LATEX RISK : DO YOU HAVE A PREVIOUS PERSONAL HISTORY OF MORE THAN NINE SURGERIES, SPINA BIFIDA, OR REPEATED CATHERIZATIONS? YES LATEX RISK : ARE YOU FREQUENTLY EXPOSED TO LATEX PRODUCTS IN YOUR OCCUPATION?NO DATE ASKED : 07/27/2020 ALCOHOL USE: NO, ONCE EVERY 4 MONTH. ALCOHOL SCREENING DID YOU HAVE A DRINK CONTAINING ALCOHOL IN THE PAST YEAR?YES HOW OFTEN DID YOU HAVE A DRINK CONTAINING ALCOHOL IN THE PAST YEAR?MONTHLY OR LESS (1 POINT) POINTS1 INTERPRETATIONNEGATIVE RECREATIONAL DRUG USE DRUG USE?NO CAFFEINE CAFFEINE USE?YES 2-3 DAILY SEXUAL HX HAD SEX IN THE LAST 12 MONTHS (VAGINAL, ORAL, OR ANAL)?NO HAVE YOU EVER HAD AN STD?NO HIV / HEP-C SCREENING HIV TEST OFFERED TO PATIENT:YES DATE OFFERED:06/28/2017 TEST ACCEPTED:NO HEP-C TEST OFFERED TO PATIENT:YES DATE OFFERED:06/28/2017 REASON:PATIENT DECLINED TEST ACCEPTED:NO REASON:PATIENT DECLINED CAODAISM [id number] NONE NO EVANGELICAL BELIEFS THAT WOULD IMPACT HEALTH CARE. LANGUAGE LANGUAGES SPOKEN:SWEDISH EDUCATION LEVEL OF EDUCATION:HIGH SCHOOL GED LEARNING BARRIERS / SPECIAL NEEDS CHANGE FROM LAST VISIT?NO BARRIERS TO LEARNING?NO HEARING IMPAIRED?NO TINITUS VISION IMPAIRED?YES :CORRECTIVE LENSES COGNITIVELY IMPAIRED?NO READINESS TO LEARN?YES LEARNING PREFERENCES?NO LEARNING CAPABILITIES PRESENT?YES EMOTIONAL BARRIERS?NO SPECIAL DEVICES?YES :CANE NEEDED PHYSICIAN NEONATOLOGY NEEDED?NO DOMESTIC VIOLENCE DO YOU FEEL SAFE IN YOUR ENVIRONMENT?YES OCCUPATION: DISABLED. DIET: AVOIDS GREASY, FRIED FOODS, DAIRY.TRIES TO EAT SMALLER PORTIONS. EXERCISE: LOWER BACK EXERCISES, WALKS TOLERATED. MARITAL STATUS: .. OTHERS AT HOME: DAUGHTER. - PFS REFERRAL NEEDED?NO CLERGY REFERRAL NEEDED?NO PUBLIC HEALTH REFERRAL NEEDED?NO HAS THE PATIENT BEEN EDUCATED REGARDING HIS/HER PLAN OF CARE?YES HAS THE PATIENT BEEN EDUCATED REGARDING PAIN, THE RISK FOR PAIN, THE IMPORTANCE OF EFFECTIVE PAIN MANAGEMENT, AND THE PAIN ASSESSMENT PROCESS?YES ADVANCE DIRECTIVE ADVANCE DIRECTIVE DISCUSSED WITH PATIENT:YES PT STATES SHE HAS A HEALTH CARE PROXY-RAH ROSARIO [phone] HOSPITALIZATION/MAJOR DIAGNOSTIC PROCEDURE SURGICAL RELATED REVIEW OF SYSTEMS CONSTITUTIONAL: ANY RECENT FEVER NO . CHILLS NO . WEIGHT CHANGE OF UNKNOWN REASONS NO . GASTROENTEROLOGY: NEW UNEXPLAINABLE CHANGES IN BOWEL CONTROL NO . CONSTIPATION NO . GENITOURINARY: ANY NEW CHANGE IN BLADDER CONTROL? NO . NEUROLOGY: NEW ONSET DIZZINESS OR NEUROLOGICAL CHANGES NOT MENTIONED NO . NEW NUMBNESS OR PAIN PATTERNS NOT MENTIONED AND PERTINENT TO TODAY'S VISIT NO . CARDIOLOGY: NEW CHEST PRESSURE NO . PATIENT DENIES NO . RESPIRATORY: UNEXPLAINABLE COUGH NO . NEW SHORTNESS OF BREATH NO . VITAL SIGNS WT 125 LBS, HT 64 IN, BMI 21.45 INDEX, BP 126/55 MM HG, HR 85 /MIN, RR 18 /MIN, TEMP 98.3 F, OXYGEN SAT % 96%, SAFE IN ENV? (Y/N) YEST.CARYN CORLEY. EXAMINATION GENERAL EXAMINATION: GENERAL AWAKE,ALERT ,PLEASANT . PSYCH AFFECT NORMAL . LUNGS: LUNG LINDSEY ARE CLEAR TO AUSCULTATION BILATERALLY. GOOD MOVEMENT OF AIR . HEART: S1, S2 IN A REGULAR RATE AND RHYTHM. NO SIGNIFICANT MURMURS, RUBS OR GALLOPS NOTED . MUSCULOSKELETAL: MUSCLE STRENGTH TESTING 5/5 BILATERAL LOWER EXTREMITIES. LUMBAR: PALPATION: + FOR PAIN OVER L/S SPINE. + FOR PAIN OVER L/S PARASPINALS WELL-HEALED SURGICAL SCAR L/S AXIS. DIAGNOSTIC TESTS REVIEWEDMRI L/S SPINE . 06/2019. ASSESSMENTS SPONDYLOSIS WITHOUT MYELOPATHY OR RADICULOPATHY, LUMBAR REGION - M47.816 (PRIMARY) OTHER CHRONIC PAIN - G89.29 POST LAMINECTOMY SYNDROME - M96.1 TREATMENT SPONDYLOSIS WITHOUT MYELOPATHY OR RADICULOPATHY, LUMBAR REGION NOTES: BILATERAL DIAGNOSTIC LUMBAR FACET BLOCK L4-5,L5-S1 PRINTED AND REVIEWED PRE PROCEDURE WITH PATIENT EZEKIEL CORLEY. OTHER CHRONIC PAIN PAIN PROCEDURE LOGDATE OF PROCEDURE1PROCEDURE:BILATERAL DIAGNOSTIC LUMBAR FACET BLOCK #1 L4-L5,L5-V9KHUKFR OF PRE SEDATE0/0RESULT:GREATER THAN 80% REDUCTION IN PAIN FOR SEVERAL HOURS POSTPROCEDURESLUIS SANTOS 07/28/2020 5:14:14 PM > ANDREA, CAN YOU PLEASE PUT THE PROCEDURE RESULTS IN THIS PROCEDURE LOG? THANKS. PROCEDURE CODES FA211 ESTABILISHED PATIENT [facility] FACILITY CHARGE DISPOSITION & COMMUNICATION FOLLOW UP POST PROCEDURE (REASON: BILATERAL DIAGNOSTIC LUMBAR FACET BLOCK L4-5,L5-S1) ELECTRONICALLY SIGNED BY CARIDAD HENLEY ON 07/30/2020 AT 12:37 PM EDT DISCLAIMER : THIS IS A VISIT SUMMARY EXTRACTED FROM THE [employer] CHART. IT IS NOT A COPY OF THE [employer] PROGRESS NOTE. ZINA
--- NOTE | 2020-07-31 07:16 | ECWPNPC ---
PATIENT NAME: LOGAN CRAVEN : 1960 GENDER: FEMALE VISIT DATE: 07/27/2020 DISCHARGE DATE: 07/27/20 1058 VISIT LOCKED DATE TIME: PHYSICIAN: ANDREA ELISA PHYSICIAN PAGER NO: ACTIVE RESOURCE: ANDREA ELIAS REASON FOR APPOINTMENT 1. POST BILATERAL DIAGNOSTIC LUMBAR FACET BLOCK #1 L4-L5, L5-S1 HISTORY OF PRESENT ILLNESS GENERAL: HERE FOR POST PROCEDURE FOLLOW-UP. HAD BILATERAL L4-5, L5-S1 LUMBAR DIAGNOSTIC FACET BLOCK ON 07/12/2020. HOURLY DIARY IS REVIEWED AND SHOWS GREATER THAN 80% REDUCTION IN PAIN FOR SEVERAL DAYS. PAIN IS BEGINNING TO RETURN TO BASELINE. DISCUSSED DIAGNOSTIC TESTING #2 AND PROCEEDING WITH RADIOFREQUENCY.-. FALL RISK SCREENING: SCREENING : NO FALLS REPORTED IN THE LAST YEAR. PAIN SCREENING: PATIENT HAS A COMPLAINT OF ACUTE OR CHRONIC PAIN :YES LOCATION OF PAIN:LOW BACK INTENSITY OF PAIN (SCALE OF 1 TO 10):4 WHAT DOES YOUR PAIN FEEL LIKE:CONTINOUS DURATION:CONSTANT PAIN IS INCREASED BY:ACTIVITIES, PROLONGED STANDING, OTHERS WALKING PAIN IS DECREASED BY:OTHERS RESTING AND HEAT AND ICE NURSING NOTE: -. PAIN CENTER INTAKE QUESTIONS: DO YOU HAVE A HISTORY OF MRSA? :NO DO YOU TAKE A BLOOD THINNERS? :YES ELMIRON DO YOU HAVE ANY BLEEDING DISORDERS? :NO ANY NEW NUMBNESS OR WEAKNESS IN YOUR LEGS OR ARMS? :NO ANY PACEMAKER,DEFIBRILLATOR, OR DORSAL COLUMN STIMULATOR? :NO DO YOU HAVE ANY RASHES OR OPEN SORES? :NO ARE YOU ALLERGIC TO IV DYE? :NO ARE YOU DIABETIC? :NO ANY NEW PROBLEMS WITH YOUR MEDICATIONS? :NO HAVE YOU RECEIVED A VACCINE IN THE PAST 30 DAYS? :NO DO YOU PLAN TO RECEIVE A VACCINE IN THE NEXT 21 DAYS? :NO DO YOU NEED ANY PRESCRIPTION? :NO DO YOU TAKE ANY IMMUNOSUPPRESSIVE MEDICATIONS? :YES LEFLUNOMIDE AND ENBREL SURECLICK IS THERE A CHANCE YOU COULD BE ? :NO ARE YOU BREAST FEEDING? :NO CURRENT MEDICATIONS TAKING VITAMIN D 2000 UNIT CAPSULE 1 TABLET ORALLY ONCE A DAY TAKING CANE . MISCELLANEOUS QUAD CANE _ QD R27 TAKING CALCIUM 600 + D 600-400 MG-UNIT TABLET 1 TABLET ORALLY ONCE A DAY TAKING ELMIRON 100 MG CAPSULE 1 CAPSULE ON AN EMPTY STOMACH 1 TABLET THREE A DAY TAKING LEFLUNOMIDE 20 MG TABLET 1 TABLET ORALLY ONCE A DAY TAKING ENBREL SURECLICK 50 MG/ML SOLUTION AUTO-INJECTOR DIRECTED SUBCUTANEOUS ONCE A WEEK TAKING CYANOCOBALAMIN 500 MCG TABLET 1 TABLET ORALLY 1 EVERY 5 DAYS TAKING CARAFATE 1 GM TABLET 1 TABLET ON AN EMPTY STOMACH ORALLY AC TID TAKING ATORVASTATIN CALCIUM 20 MG TABLET 1 TABLET ORALLY ONCE A DAY TAKING FISH OIL 1000 MG CAPSULE 1 CAPSULE ORALLY ONCE A DAY TAKING ESCITALOPRAM OXALATE 10 MG TABLET 15MG 1.5 TABLET ORALLY ONCE A DAY TAKING ESOMEPRAZOLE MAGNESIUM 40 MG CAPSULE DELAYED RELEASE 1 CAPSULE ORALLY AC BID TAKING CARISOPRODOL 350 MG TABLET 1 TABLET NEEDED ORALLY TID PRN, MDD 3 TAKING HYDROCODONE-ACETAMINOPHEN 5-325 MG TABLET 1 TABLET NEEDED ORALLY TID PRN MDD = 3 MEDICATION LIST REVIEWED AND RECONCILED WITH THE PATIENT PAST MEDICAL HISTORY RA/OSTEOARTHRITIS/FIBROMYALGIA NICOTINE ADDICTION-08/2011 FEV1 2.5L (101%)/RATIO 97%-1 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 GERD/DYSPEPSIA-06/2016 NORMAL EGD/COLON/SB CAPSULE-R HYPERLIPIDEMIA 2B ENDOMETRIOSIS 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 SPENCER 2008 FOLLOWS WITH WOMAN TO WOMAN HISTORY OF TUBULAR ADENOMA-NORMAL COLONOSCOPY APRIL 2009 NORMAL COLONOSCOPY C - RANDOM BIOPSIES-[place] COLONOSCOPY 07/18/16 REINDL CERVICAL DJD STATUS POST MULTILEVEL FUSION-01/2010 MRI STABLE ACDF C BASELINE DJD ATROPHIC VAGINITIS OSTEOPENIA VITAMIN D DEFICIENCY CHRONIC SINUSITIS / NONE LATELY RECURRENT UTI / YEARS AGO CHRONIC DIARRHEA STATUS POST LAPAROSCOPIC CHOLECYSTECTOMY JULY 2009//[id number] CHRONIC DRY EYES MEMORY LOSS 2 INSOMNIA, WORK STRESS-12/2011 NORMAL MRI BRAIN S AND NORMAL WORKUP LUMBAR DJD-L2/3 BULGE C L IF HNP C L L2 COMPRESSION, L3/4 SEVERE CCS C B L3 COMPRESSION BY 03/2017 MRI LONG-TERM DISABILITY-TAKEN OOW 08/05/[address] BARAJAS, 01/2014 FILLED OUT LTD PAPERWORK FOR GUARDIAN-PATIENT DEFERRED WCE INSOMNIA, COOMORBID ANXIETY OCULAR SURFACE DISEASE ALLERGIES METHOTREXATE (ANTI-RHEUMATIC): MIGRANES - SIDE EFFECTS CYMBALTA: RACING PLUSE, SHAKES - ALLERGY WELLBUTRIN: PALPITATIONS, SEVERE - ALLERGY SULFA (FOR ALLERGY USE ONLY): NAUSEA/VOMITING - ALLERGY LYRICA: PALPITATIONS - ALLERGY CELEXA: PALPITATIONS - SIDE EFFECTS ORENCIA: ANAPHYLAXIS - ALLERGY TOPICAL ALOE VERA: SEVERE ITCHING CANNOT TOLERATE ASA BASED PRODUCTS/ NSAIDS: HX STOMACH BLEED - CONTRAINDICATION SURGICAL HISTORY LAPAROSCOPY X2 CHRISTINE BTL 1982 TVH [address] SPENCER 2008 VAGINAL CUFF BX. IRMA CHANDLER NP 03/07 CHOLECYSTECTOMY 06/09 ACDF-C4-T1 10/06 R BREAST [id number] 09/2010 ABOVE L CTR- FISH 10/27/14 L4-L5 FUSION/LAMINECTOMY 09/2013 NORMAL EGD/COLON/SB CAPSULE-R 06/2016 FUSION C5 C6 1999 HYSTERECTOMY 1988 BENIGN MOLE REMOVAL 2018 SOCIAL HISTORY GENERAL: TOBACCO USE ARE YOU A:CURRENT SMOKER ARE YOU INTERESTED IN QUITTING?THINKING ABOUT QUITTING COUNSELED THE PATIENT ON SMOKING CESSATION, EDUCATION [id number]/30/2021 HOW MANY CIGARETTES A DAY DO YOU SMOKE?5 OR LESS HOW SOON AFTER YOU WAKE UP DO YOU SMOKE YOUR FIRST CIGARETTE?AFTER 60 MIN HOW OFTEN DO YOU SMOKE CIGARETTES?EVERY DAY PATIENT COUNSELED ON THE DANGERS OF TOBACCO USE AND URGED TO QUIT:05/26/2020 VAPORNO E-CIGARETTENO LATEX QUESTIONNAIRE LATEX ALLERGY : HAVE YOU EVER DEVELOPED ANY TYPE OF REACTION AFTER HANDLING LATEX PRODUCTS SUCH RUBBER GLOVES, CONDOMS, DIAPHRAGMS, BALLOONS, SOCKS, OR UNDERWEAR?NO LATEX ALLERGY : HAVE YOU EVER DEVELOPED ANY TYPE OF REACTION DURING OR AFTER DENTAL APPOINTMENT, VAGINAL/RECTAL EXAMINATION, SURGICAL PROCEDURE, OR ANY OTHER EXPOSURE?NO LATEX RISK : HAVE YOU EVER HAD ANY DIFFICULTY BREATHING OR HIVES AFTER EATING OR HANDLING ANY FRUITS, OR VEGETABLES; SUCH KIWI, BANANAS, STONE FRUITS, OR CHESTNUTSNO LATEX RISK : DO YOU HAVE A PREVIOUS PERSONAL HISTORY OF MORE THAN NINE SURGERIES, SPINA BIFIDA, OR REPEATED CATHERIZATIONS? YES LATEX RISK : ARE YOU FREQUENTLY EXPOSED TO LATEX PRODUCTS IN YOUR OCCUPATION?NO DATE ASKED : 07/27/2020 ALCOHOL USE: NO, ONCE EVERY 4 MONTH. ALCOHOL SCREENING DID YOU HAVE A DRINK CONTAINING ALCOHOL IN THE PAST YEAR?YES HOW OFTEN DID YOU HAVE A DRINK CONTAINING ALCOHOL IN THE PAST YEAR?MONTHLY OR LESS (1 POINT) POINTS1 INTERPRETATIONNEGATIVE RECREATIONAL DRUG USE DRUG USE?NO CAFFEINE CAFFEINE USE?YES 2-3 DAILY SEXUAL HX HAD SEX IN THE LAST 12 MONTHS (VAGINAL, ORAL, OR ANAL)?NO HAVE YOU EVER HAD AN STD?NO HIV / HEP-C SCREENING HIV TEST OFFERED TO PATIENT:YES DATE OFFERED:06/28/2017 TEST ACCEPTED:NO HEP-C TEST OFFERED TO PATIENT:YES DATE OFFERED:06/28/2017 REASON:PATIENT DECLINED TEST ACCEPTED:NO REASON:PATIENT DECLINED HINDU [id number] NONE NO RESTORATIONIST BELIEFS THAT WOULD IMPACT HEALTH CARE. LANGUAGE LANGUAGES SPOKEN:JAPANESE EDUCATION LEVEL OF EDUCATION:HIGH SCHOOL GED LEARNING BARRIERS / SPECIAL NEEDS CHANGE FROM LAST VISIT?NO BARRIERS TO LEARNING?NO HEARING IMPAIRED?NO TINITUS VISION IMPAIRED?YES :CORRECTIVE LENSES COGNITIVELY IMPAIRED?NO READINESS TO LEARN?YES LEARNING PREFERENCES?NO LEARNING CAPABILITIES PRESENT?YES EMOTIONAL BARRIERS?NO SPECIAL DEVICES?YES :CANE NEEDED SEARCH LEAD NEEDED?NO DOMESTIC VIOLENCE DO YOU FEEL SAFE IN YOUR ENVIRONMENT?YES OCCUPATION: DISABLED. DIET: AVOIDS GREASY, FRIED FOODS, DAIRY.TRIES TO EAT SMALLER PORTIONS. EXERCISE: LOWER BACK EXERCISES, WALKS TOLERATED. MARITAL STATUS: .. OTHERS AT HOME: DAUGHTER. - PFS REFERRAL NEEDED?NO CLERGY REFERRAL NEEDED?NO PUBLIC HEALTH REFERRAL NEEDED?NO HAS THE PATIENT BEEN EDUCATED REGARDING HIS/HER PLAN OF CARE?YES HAS THE PATIENT BEEN EDUCATED REGARDING PAIN, THE RISK FOR PAIN, THE IMPORTANCE OF EFFECTIVE PAIN MANAGEMENT, AND THE PAIN ASSESSMENT PROCESS?YES ADVANCE DIRECTIVE ADVANCE DIRECTIVE DISCUSSED WITH PATIENT:YES PT STATES SHE HAS A HEALTH CARE PROXY-RAH ROSARIO [phone] HOSPITALIZATION/MAJOR DIAGNOSTIC PROCEDURE SURGICAL RELATED REVIEW OF SYSTEMS CONSTITUTIONAL: ANY RECENT FEVER NO . CHILLS NO . WEIGHT CHANGE OF UNKNOWN REASONS NO . GASTROENTEROLOGY: NEW UNEXPLAINABLE CHANGES IN BOWEL CONTROL NO . CONSTIPATION NO . GENITOURINARY: ANY NEW CHANGE IN BLADDER CONTROL? NO . NEUROLOGY: NEW ONSET DIZZINESS OR NEUROLOGICAL CHANGES NOT MENTIONED NO . NEW NUMBNESS OR PAIN PATTERNS NOT MENTIONED AND PERTINENT TO TODAY'S VISIT NO . CARDIOLOGY: NEW CHEST PRESSURE NO . PATIENT DENIES NO . RESPIRATORY: UNEXPLAINABLE COUGH NO . NEW SHORTNESS OF BREATH NO . VITAL SIGNS WT 125 LBS, HT 64 IN, BMI 21.45 INDEX, BP 126/55 MM HG, HR 85 /MIN, RR 18 /MIN, TEMP 98.3 F, OXYGEN SAT % 96%, SAFE IN ENV? (Y/N) YEST.CARYN CORLEY. EXAMINATION GENERAL EXAMINATION: GENERAL AWAKE,ALERT ,PLEASANT . PSYCH AFFECT NORMAL . LUNGS: LUNG LINDSEY ARE CLEAR TO AUSCULTATION BILATERALLY. GOOD MOVEMENT OF AIR . HEART: S1, S2 IN A REGULAR RATE AND RHYTHM. NO SIGNIFICANT MURMURS, RUBS OR GALLOPS NOTED . MUSCULOSKELETAL: MUSCLE STRENGTH TESTING 5/5 BILATERAL LOWER EXTREMITIES. LUMBAR: PALPATION: + FOR PAIN OVER L/S SPINE. + FOR PAIN OVER L/S PARASPINALS WELL-HEALED SURGICAL SCAR L/S AXIS. DIAGNOSTIC TESTS REVIEWEDMRI L/S SPINE . 06/2019. ASSESSMENTS SPONDYLOSIS WITHOUT MYELOPATHY OR RADICULOPATHY, LUMBAR REGION - M47.816 (PRIMARY) OTHER CHRONIC PAIN - G89.29 POST LAMINECTOMY SYNDROME - M96.1 TREATMENT SPONDYLOSIS WITHOUT MYELOPATHY OR RADICULOPATHY, LUMBAR REGION NOTES: BILATERAL DIAGNOSTIC LUMBAR FACET BLOCK L4-5,L5-S1 PRINTED AND REVIEWED PRE PROCEDURE WITH PATIENT EZEKIEL CORLEY. OTHER CHRONIC PAIN PAIN PROCEDURE LOGDATE OF PROCEDURE1PROCEDURE:BILATERAL DIAGNOSTIC LUMBAR FACET BLOCK #1 L4-L5,L5-T4YWJWYA OF PRE SEDATE0/0RESULT:GREATER THAN 80% REDUCTION IN PAIN FOR SEVERAL HOURS POSTPROCEDURESLUIS SANTOS 07/28/2020 5:14:14 PM > ANDREA, CAN YOU PLEASE PUT THE PROCEDURE RESULTS IN THIS PROCEDURE LOG? THANKS. PROCEDURE CODES FA211 ESTABILISHED PATIENT [facility] FACILITY CHARGE DISPOSITION & COMMUNICATION FOLLOW UP POST PROCEDURE (REASON: BILATERAL DIAGNOSTIC LUMBAR FACET BLOCK L4-5,L5-S1) ELECTRONICALLY SIGNED BY CARIDAD HENLEY ON 07/30/2020 AT 12:37 PM EDT DISCLAIMER : THIS IS A VISIT SUMMARY EXTRACTED FROM THE [employer] CHART. IT IS NOT A COPY OF THE [employer] PROGRESS NOTE. ZINA
--- NOTE | 2020-07-31 07:18 | ECWPNPC ---
PATIENT NAME: LOGAN CRAVEN : 1960 GENDER: FEMALE VISIT DATE: 07/27/2020 DISCHARGE DATE: 07/27/20 1058 VISIT LOCKED DATE TIME: PHYSICIAN: ANDREA ELIAS PHYSICIAN PAGER NO: ACTIVE RESOURCE: ANDREA ELIAS REASON FOR APPOINTMENT 1. POST BILATERAL DIAGNOSTIC LUMBAR FACET BLOCK #1 L4-L5, L5-S1 HISTORY OF PRESENT ILLNESS GENERAL: HERE FOR POST PROCEDURE FOLLOW-UP. HAD BILATERAL L4-5, L5-S1 LUMBAR DIAGNOSTIC FACET BLOCK ON 07/12/2020. HOURLY DIARY IS REVIEWED AND SHOWS GREATER THAN 80% REDUCTION IN PAIN FOR SEVERAL DAYS. PAIN IS BEGINNING TO RETURN TO BASELINE. DISCUSSED DIAGNOSTIC TESTING #2 AND PROCEEDING WITH RADIOFREQUENCY.-. FALL RISK SCREENING: SCREENING : NO FALLS REPORTED IN THE LAST YEAR. PAIN SCREENING: PATIENT HAS A COMPLAINT OF ACUTE OR CHRONIC PAIN :YES LOCATION OF PAIN:LOW BACK INTENSITY OF PAIN (SCALE OF 1 TO 10):4 WHAT DOES YOUR PAIN FEEL LIKE:CONTINOUS DURATION:CONSTANT PAIN IS INCREASED BY:ACTIVITIES, PROLONGED STANDING, OTHERS WALKING PAIN IS DECREASED BY:OTHERS RESTING AND HEAT AND ICE NURSING NOTE: -. PAIN CENTER INTAKE QUESTIONS: DO YOU HAVE A HISTORY OF MRSA? :NO DO YOU TAKE A BLOOD THINNERS? :YES ELMIRON DO YOU HAVE ANY BLEEDING DISORDERS? :NO ANY NEW NUMBNESS OR WEAKNESS IN YOUR LEGS OR ARMS? :NO ANY PACEMAKER,DEFIBRILLATOR, OR DORSAL COLUMN STIMULATOR? :NO DO YOU HAVE ANY RASHES OR OPEN SORES? :NO ARE YOU ALLERGIC TO IV DYE? :NO ARE YOU DIABETIC? :NO ANY NEW PROBLEMS WITH YOUR MEDICATIONS? :NO HAVE YOU RECEIVED A VACCINE IN THE PAST 30 DAYS? :NO DO YOU PLAN TO RECEIVE A VACCINE IN THE NEXT 21 DAYS? :NO DO YOU NEED ANY PRESCRIPTION? :NO DO YOU TAKE ANY IMMUNOSUPPRESSIVE MEDICATIONS? :YES LEFLUNOMIDE AND ENBREL SURECLICK IS THERE A CHANCE YOU COULD BE ? :NO ARE YOU BREAST FEEDING? :NO CURRENT MEDICATIONS TAKING VITAMIN D 2000 UNIT CAPSULE 1 TABLET ORALLY ONCE A DAY TAKING CANE . MISCELLANEOUS QUAD CANE _ QD R27 TAKING CALCIUM 600 + D 600-400 MG-UNIT TABLET 1 TABLET ORALLY ONCE A DAY TAKING ELMIRON 100 MG CAPSULE 1 CAPSULE ON AN EMPTY STOMACH 1 TABLET THREE A DAY TAKING LEFLUNOMIDE 20 MG TABLET 1 TABLET ORALLY ONCE A DAY TAKING ENBREL SURECLICK 50 MG/ML SOLUTION AUTO-INJECTOR DIRECTED SUBCUTANEOUS ONCE A WEEK TAKING CYANOCOBALAMIN 500 MCG TABLET 1 TABLET ORALLY 1 EVERY 5 DAYS TAKING CARAFATE 1 GM TABLET 1 TABLET ON AN EMPTY STOMACH ORALLY AC TID TAKING ATORVASTATIN CALCIUM 20 MG TABLET 1 TABLET ORALLY ONCE A DAY TAKING FISH OIL 1000 MG CAPSULE 1 CAPSULE ORALLY ONCE A DAY TAKING ESCITALOPRAM OXALATE 10 MG TABLET 15MG 1.5 TABLET ORALLY ONCE A DAY TAKING ESOMEPRAZOLE MAGNESIUM 40 MG CAPSULE DELAYED RELEASE 1 CAPSULE ORALLY AC BID TAKING CARISOPRODOL 350 MG TABLET 1 TABLET NEEDED ORALLY TID PRN, MDD 3 TAKING HYDROCODONE-ACETAMINOPHEN 5-325 MG TABLET 1 TABLET NEEDED ORALLY TID PRN MDD = 3 MEDICATION LIST REVIEWED AND RECONCILED WITH THE PATIENT PAST MEDICAL HISTORY RA/OSTEOARTHRITIS/FIBROMYALGIA NICOTINE ADDICTION-08/2011 FEV1 2.5L (101%)/RATIO 97%-1 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 GERD/DYSPEPSIA-06/2016 NORMAL EGD/COLON/SB CAPSULE-R HYPERLIPIDEMIA 2B ENDOMETRIOSIS 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 SPENCER 2008 FOLLOWS WITH WOMAN TO WOMAN HISTORY OF TUBULAR ADENOMA-NORMAL COLONOSCOPY APRIL 2009 NORMAL COLONOSCOPY C - RANDOM BIOPSIES-[place] COLONOSCOPY 07/18/16 REINDL CERVICAL DJD STATUS POST MULTILEVEL FUSION-01/2010 MRI STABLE ACDF C BASELINE DJD ATROPHIC VAGINITIS OSTEOPENIA VITAMIN D DEFICIENCY CHRONIC SINUSITIS / NONE LATELY RECURRENT UTI / YEARS AGO CHRONIC DIARRHEA STATUS POST LAPAROSCOPIC CHOLECYSTECTOMY JULY 2009//[id number] CHRONIC DRY EYES MEMORY LOSS 2 INSOMNIA, WORK STRESS-12/2011 NORMAL MRI BRAIN S AND NORMAL WORKUP LUMBAR DJD-L2/3 BULGE C L IF HNP C L L2 COMPRESSION, L3/4 SEVERE CCS C B L3 COMPRESSION BY 03/2017 MRI LONG-TERM DISABILITY-TAKEN OOW 08/05/[address] BARAJAS, 01/2014 FILLED OUT LTD PAPERWORK FOR GUARDIAN-PATIENT DEFERRED WCE INSOMNIA, COOMORBID ANXIETY OCULAR SURFACE DISEASE ALLERGIES METHOTREXATE (ANTI-RHEUMATIC): MIGRANES - SIDE EFFECTS CYMBALTA: RACING PLUSE, SHAKES - ALLERGY WELLBUTRIN: PALPITATIONS, SEVERE - ALLERGY SULFA (FOR ALLERGY USE ONLY): NAUSEA/VOMITING - ALLERGY LYRICA: PALPITATIONS - ALLERGY CELEXA: PALPITATIONS - SIDE EFFECTS ORENCIA: ANAPHYLAXIS - ALLERGY TOPICAL ALOE VERA: SEVERE ITCHING CANNOT TOLERATE ASA BASED PRODUCTS/ NSAIDS: HX STOMACH BLEED - CONTRAINDICATION SURGICAL HISTORY LAPAROSCOPY X2 CHRISTINE BTL 1982 TVH [address] SPENCER 2008 VAGINAL CUFF BX. IRMA CHANDLER NP 03/07 CHOLECYSTECTOMY 06/09 ACDF-C4-T1 10/06 R BREAST [id number] 09/2010 ABOVE L CTR- FISH 10/27/14 L4-L5 FUSION/LAMINECTOMY 09/2013 NORMAL EGD/COLON/SB CAPSULE-R 06/2016 FUSION C5 C6 1999 HYSTERECTOMY 1988 BENIGN MOLE REMOVAL 2018 SOCIAL HISTORY GENERAL: TOBACCO USE ARE YOU A:CURRENT SMOKER ARE YOU INTERESTED IN QUITTING?THINKING ABOUT QUITTING COUNSELED THE PATIENT ON SMOKING CESSATION, EDUCATION [id number]/30/2021 HOW MANY CIGARETTES A DAY DO YOU SMOKE?5 OR LESS HOW SOON AFTER YOU WAKE UP DO YOU SMOKE YOUR FIRST CIGARETTE?AFTER 60 MIN HOW OFTEN DO YOU SMOKE CIGARETTES?EVERY DAY PATIENT COUNSELED ON THE DANGERS OF TOBACCO USE AND URGED TO QUIT:05/26/2020 VAPORNO E-CIGARETTENO LATEX QUESTIONNAIRE LATEX ALLERGY : HAVE YOU EVER DEVELOPED ANY TYPE OF REACTION AFTER HANDLING LATEX PRODUCTS SUCH RUBBER GLOVES, CONDOMS, DIAPHRAGMS, BALLOONS, SOCKS, OR UNDERWEAR?NO LATEX ALLERGY : HAVE YOU EVER DEVELOPED ANY TYPE OF REACTION DURING OR AFTER DENTAL APPOINTMENT, VAGINAL/RECTAL EXAMINATION, SURGICAL PROCEDURE, OR ANY OTHER EXPOSURE?NO LATEX RISK : HAVE YOU EVER HAD ANY DIFFICULTY BREATHING OR HIVES AFTER EATING OR HANDLING ANY FRUITS, OR VEGETABLES; SUCH KIWI, BANANAS, STONE FRUITS, OR CHESTNUTSNO LATEX RISK : DO YOU HAVE A PREVIOUS PERSONAL HISTORY OF MORE THAN NINE SURGERIES, SPINA BIFIDA, OR REPEATED CATHERIZATIONS? YES LATEX RISK : ARE YOU FREQUENTLY EXPOSED TO LATEX PRODUCTS IN YOUR OCCUPATION?NO DATE ASKED : 07/27/2020 ALCOHOL USE: NO, ONCE EVERY 4 MONTH. ALCOHOL SCREENING DID YOU HAVE A DRINK CONTAINING ALCOHOL IN THE PAST YEAR?YES HOW OFTEN DID YOU HAVE A DRINK CONTAINING ALCOHOL IN THE PAST YEAR?MONTHLY OR LESS (1 POINT) POINTS1 INTERPRETATIONNEGATIVE RECREATIONAL DRUG USE DRUG USE?NO CAFFEINE CAFFEINE USE?YES 2-3 DAILY SEXUAL HX HAD SEX IN THE LAST 12 MONTHS (VAGINAL, ORAL, OR ANAL)?NO HAVE YOU EVER HAD AN STD?NO HIV / HEP-C SCREENING HIV TEST OFFERED TO PATIENT:YES DATE OFFERED:06/28/2017 TEST ACCEPTED:NO HEP-C TEST OFFERED TO PATIENT:YES DATE OFFERED:06/28/2017 REASON:PATIENT DECLINED TEST ACCEPTED:NO REASON:PATIENT DECLINED SIKHISM [id number] NONE NO TEMPLE BELIEFS THAT WOULD IMPACT HEALTH CARE. LANGUAGE LANGUAGES SPOKEN:JAPANESE EDUCATION LEVEL OF EDUCATION:HIGH SCHOOL GED LEARNING BARRIERS / SPECIAL NEEDS CHANGE FROM LAST VISIT?NO BARRIERS TO LEARNING?NO HEARING IMPAIRED?NO TINITUS VISION IMPAIRED?YES :CORRECTIVE LENSES COGNITIVELY IMPAIRED?NO READINESS TO LEARN?YES LEARNING PREFERENCES?NO LEARNING CAPABILITIES PRESENT?YES EMOTIONAL BARRIERS?NO SPECIAL DEVICES?YES :CANE NEEDED GRANTS ASSISTANT NEEDED?NO DOMESTIC VIOLENCE DO YOU FEEL SAFE IN YOUR ENVIRONMENT?YES OCCUPATION: DISABLED. DIET: AVOIDS GREASY, FRIED FOODS, DAIRY.TRIES TO EAT SMALLER PORTIONS. EXERCISE: LOWER BACK EXERCISES, WALKS TOLERATED. MARITAL STATUS: .. OTHERS AT HOME: DAUGHTER. - PFS REFERRAL NEEDED?NO CLERGY REFERRAL NEEDED?NO PUBLIC HEALTH REFERRAL NEEDED?NO HAS THE PATIENT BEEN EDUCATED REGARDING HIS/HER PLAN OF CARE?YES HAS THE PATIENT BEEN EDUCATED REGARDING PAIN, THE RISK FOR PAIN, THE IMPORTANCE OF EFFECTIVE PAIN MANAGEMENT, AND THE PAIN ASSESSMENT PROCESS?YES ADVANCE DIRECTIVE ADVANCE DIRECTIVE DISCUSSED WITH PATIENT:YES PT STATES SHE HAS A HEALTH CARE PROXY-RAH RSOARIO [phone] HOSPITALIZATION/MAJOR DIAGNOSTIC PROCEDURE SURGICAL RELATED REVIEW OF SYSTEMS CONSTITUTIONAL: ANY RECENT FEVER NO . CHILLS NO . WEIGHT CHANGE OF UNKNOWN REASONS NO . GASTROENTEROLOGY: NEW UNEXPLAINABLE CHANGES IN BOWEL CONTROL NO . CONSTIPATION NO . GENITOURINARY: ANY NEW CHANGE IN BLADDER CONTROL? NO . NEUROLOGY: NEW ONSET DIZZINESS OR NEUROLOGICAL CHANGES NOT MENTIONED NO . NEW NUMBNESS OR PAIN PATTERNS NOT MENTIONED AND PERTINENT TO TODAY'S VISIT NO . CARDIOLOGY: NEW CHEST PRESSURE NO . PATIENT DENIES NO . RESPIRATORY: UNEXPLAINABLE COUGH NO . NEW SHORTNESS OF BREATH NO . VITAL SIGNS WT 125 LBS, HT 64 IN, BMI 21.45 INDEX, BP 126/55 MM HG, HR 85 /MIN, RR 18 /MIN, TEMP 98.3 F, OXYGEN SAT % 96%, SAFE IN ENV? (Y/N) YEST.CARYN CORLEY. EXAMINATION GENERAL EXAMINATION: GENERAL AWAKE,ALERT ,PLEASANT . PSYCH AFFECT NORMAL . LUNGS: LUNG LINDSEY ARE CLEAR TO AUSCULTATION BILATERALLY. GOOD MOVEMENT OF AIR . HEART: S1, S2 IN A REGULAR RATE AND RHYTHM. NO SIGNIFICANT MURMURS, RUBS OR GALLOPS NOTED . MUSCULOSKELETAL: MUSCLE STRENGTH TESTING 5/5 BILATERAL LOWER EXTREMITIES. LUMBAR: PALPATION: + FOR PAIN OVER L/S SPINE. + FOR PAIN OVER L/S PARASPINALS WELL-HEALED SURGICAL SCAR L/S AXIS. DIAGNOSTIC TESTS REVIEWEDMRI L/S SPINE . 06/2019. ASSESSMENTS SPONDYLOSIS WITHOUT MYELOPATHY OR RADICULOPATHY, LUMBAR REGION - M47.816 (PRIMARY) OTHER CHRONIC PAIN - G89.29 POST LAMINECTOMY SYNDROME - M96.1 TREATMENT SPONDYLOSIS WITHOUT MYELOPATHY OR RADICULOPATHY, LUMBAR REGION NOTES: BILATERAL DIAGNOSTIC LUMBAR FACET BLOCK L4-5,L5-S1 PRINTED AND REVIEWED PRE PROCEDURE WITH PATIENT EZEKIEL CORLEY. OTHER CHRONIC PAIN PAIN PROCEDURE LOGDATE OF PROCEDURE1PROCEDURE:BILATERAL DIAGNOSTIC LUMBAR FACET BLOCK #1 L4-L5,L5-X9TLHFIO OF PRE SEDATE0/0RESULT:GREATER THAN 80% REDUCTION IN PAIN FOR SEVERAL HOURS POSTPROCEDURESLUIS SANTOS 07/28/2020 5:14:14 PM > ANDREA, CAN YOU PLEASE PUT THE PROCEDURE RESULTS IN THIS PROCEDURE LOG? THANKS. PROCEDURE CODES FA211 ESTABILISHED PATIENT [facility] F[facility]ILITY CHARGE DISPOSITION & COMMUNICATION FOLLOW UP POST PROCEDURE (REASON: BILATERAL DIAGNOSTIC LUMBAR FACET BLOCK L4-5,L5-S1) ELECTRONICALLY SIGNED BY CARIDAD HENLEY ON 07/30/2020 AT 12:37 PM EDT DISCLAIMER : THIS IS A VISIT SUMMARY EXTRACTED FROM THE [employer] CHART. IT IS NOT A COPY OF THE [employer] PROGRESS NOTE. ZINA
--- NOTE | 2020-07-31 07:20 | ECWPNPC ---
PATIENT NAME: LOGAN CRAVEN : 1960 GENDER: FEMALE VISIT DATE: 07/27/2020 DISCHARGE DATE: 07/27/20 1058 VISIT LOCKED DATE TIME: PHYSICIAN: ANDREA ELIAS PHYSICIAN PAGER NO: ACTIVE RESOURCE: ANDREA ELIAS REASON FOR APPOINTMENT 1. POST BILATERAL DIAGNOSTIC LUMBAR FACET BLOCK #1 L4-L5, L5-S1 HISTORY OF PRESENT ILLNESS GENERAL: HERE FOR POST PROCEDURE FOLLOW-UP. HAD BILATERAL L4-5, L5-S1 LUMBAR DIAGNOSTIC FACET BLOCK ON 07/12/2020. HOURLY DIARY IS REVIEWED AND SHOWS GREATER THAN 80% REDUCTION IN PAIN FOR SEVERAL DAYS. PAIN IS BEGINNING TO RETURN TO BASELINE. DISCUSSED DIAGNOSTIC TESTING #2 AND PROCEEDING WITH RADIOFREQUENCY.-. FALL RISK SCREENING: SCREENING : NO FALLS REPORTED IN THE LAST YEAR. PAIN SCREENING: PATIENT HAS A COMPLAINT OF ACUTE OR CHRONIC PAIN :YES LOCATION OF PAIN:LOW BACK INTENSITY OF PAIN (SCALE OF 1 TO 10):4 WHAT DOES YOUR PAIN FEEL LIKE:CONTINOUS DURATION:CONSTANT PAIN IS INCREASED BY:ACTIVITIES, PROLONGED STANDING, OTHERS WALKING PAIN IS DECREASED BY:OTHERS RESTING AND HEAT AND ICE NURSING NOTE: -. PAIN CENTER INTAKE QUESTIONS: DO YOU HAVE A HISTORY OF MRSA? :NO DO YOU TAKE A BLOOD THINNERS? :YES ELMIRON DO YOU HAVE ANY BLEEDING DISORDERS? :NO ANY NEW NUMBNESS OR WEAKNESS IN YOUR LEGS OR ARMS? :NO ANY PACEMAKER,DEFIBRILLATOR, OR DORSAL COLUMN STIMULATOR? :NO DO YOU HAVE ANY RASHES OR OPEN SORES? :NO ARE YOU ALLERGIC TO IV DYE? :NO ARE YOU DIABETIC? :NO ANY NEW PROBLEMS WITH YOUR MEDICATIONS? :NO HAVE YOU RECEIVED A VACCINE IN THE PAST 30 DAYS? :NO DO YOU PLAN TO RECEIVE A VACCINE IN THE NEXT 21 DAYS? :NO DO YOU NEED ANY PRESCRIPTION? :NO DO YOU TAKE ANY IMMUNOSUPPRESSIVE MEDICATIONS? :YES LEFLUNOMIDE AND ENBREL SURECLICK IS THERE A CHANCE YOU COULD BE ? :NO ARE YOU BREAST FEEDING? :NO CURRENT MEDICATIONS TAKING VITAMIN D 2000 UNIT CAPSULE 1 TABLET ORALLY ONCE A DAY TAKING CANE . MISCELLANEOUS QUAD CANE _ QD R27 TAKING CALCIUM 600 + D 600-400 MG-UNIT TABLET 1 TABLET ORALLY ONCE A DAY TAKING ELMIRON 100 MG CAPSULE 1 CAPSULE ON AN EMPTY STOMACH 1 TABLET THREE A DAY TAKING LEFLUNOMIDE 20 MG TABLET 1 TABLET ORALLY ONCE A DAY TAKING ENBREL SURECLICK 50 MG/ML SOLUTION AUTO-INJECTOR DIRECTED SUBCUTANEOUS ONCE A WEEK TAKING CYANOCOBALAMIN 500 MCG TABLET 1 TABLET ORALLY 1 EVERY 5 DAYS TAKING CARAFATE 1 GM TABLET 1 TABLET ON AN EMPTY STOMACH ORALLY AC TID TAKING ATORVASTATIN CALCIUM 20 MG TABLET 1 TABLET ORALLY ONCE A DAY TAKING FISH OIL 1000 MG CAPSULE 1 CAPSULE ORALLY ONCE A DAY TAKING ESCITALOPRAM OXALATE 10 MG TABLET 15MG 1.5 TABLET ORALLY ONCE A DAY TAKING ESOMEPRAZOLE MAGNESIUM 40 MG CAPSULE DELAYED RELEASE 1 CAPSULE ORALLY AC BID TAKING CARISOPRODOL 350 MG TABLET 1 TABLET NEEDED ORALLY TID PRN, MDD 3 TAKING HYDROCODONE-ACETAMINOPHEN 5-325 MG TABLET 1 TABLET NEEDED ORALLY TID PRN MDD = 3 MEDICATION LIST REVIEWED AND RECONCILED WITH THE PATIENT PAST MEDICAL HISTORY RA/OSTEOARTHRITIS/FIBROMYALGIA NICOTINE ADDICTION-08/2011 FEV1 2.5L (101%)/RATIO 97%-1 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 GERD/DYSPEPSIA-06/2016 NORMAL EGD/COLON/SB CAPSULE-R HYPERLIPIDEMIA 2B ENDOMETRIOSIS 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 SPENCER 2008 FOLLOWS WITH WOMAN TO WOMAN HISTORY OF TUBULAR ADENOMA-NORMAL COLONOSCOPY APRIL 2009 NORMAL COLONOSCOPY C - RANDOM BIOPSIES-[place] COLONOSCOPY 07/18/16 REINDL CERVICAL DJD STATUS POST MULTILEVEL FUSION-01/2010 MRI STABLE ACDF C BASELINE DJD ATROPHIC VAGINITIS OSTEOPENIA VITAMIN D DEFICIENCY CHRONIC SINUSITIS / NONE LATELY RECURRENT UTI / YEARS AGO CHRONIC DIARRHEA STATUS POST LAPAROSCOPIC CHOLECYSTECTOMY JULY 2009//[id number] CHRONIC DRY EYES MEMORY LOSS 2 INSOMNIA, WORK STRESS-12/2011 NORMAL MRI BRAIN S AND NORMAL WORKUP LUMBAR DJD-L2/3 BULGE C L IF HNP C L L2 COMPRESSION, L3/4 SEVERE CCS C B L3 COMPRESSION BY 03/2017 MRI LONG-TERM DISABILITY-TAKEN OOW 08/05/13 [address] BARAJAS, 01/2014 FILLED OUT LTD PAPERWORK FOR GUARDIAN-PATIENT DEFERRED WCE INSOMNIA, COOMORBID ANXIETY OCULAR SURFACE DISEASE ALLERGIES METHOTREXATE (ANTI-RHEUMATIC): MIGRANES - SIDE EFFECTS CYMBALTA: RACING PLUSE, SHAKES - ALLERGY WELLBUTRIN: PALPITATIONS, SEVERE - ALLERGY SULFA (FOR ALLERGY USE ONLY): NAUSEA/VOMITING - ALLERGY LYRICA: PALPITATIONS - ALLERGY CELEXA: PALPITATIONS - SIDE EFFECTS ORENCIA: ANAPHYLAXIS - ALLERGY TOPICAL ALOE VERA: SEVERE ITCHING CANNOT TOLERATE ASA BASED PRODUCTS/ NSAIDS: HX STOMACH BLEED - CONTRAINDICATION SURGICAL HISTORY LAPAROSCOPY X2 CHRISTINE BTL 1982 TVH [address] SPENCER 2008 VAGINAL CUFF BX. IRMA CHANDLER NP 03/07 CHOLECYSTECTOMY 06/09 ACDF-C4-T1 10/06 R BREAST [id number] 09/2010 ABOVE L CTR- FISH 10/27/14 L4-L5 FUSION/LAMINECTOMY 09/2013 NORMAL EGD/COLON/SB CAPSULE-R 06/2016 FUSION C5 C6 1999 HYSTERECTOMY 1988 BENIGN MOLE REMOVAL 2018 SOCIAL HISTORY GENERAL: TOBACCO USE ARE YOU A:CURRENT SMOKER ARE YOU INTERESTED IN QUITTING?THINKING ABOUT QUITTING COUNSELED THE PATIENT ON SMOKING CESSATION, EDUCATION WASMAGGO01/30/2021 HOW MANY CIGARETTES A DAY DO YOU SMOKE?5 OR LESS HOW SOON AFTER YOU WAKE UP DO YOU SMOKE YOUR FIRST CIGARETTE?AFTER 60 MIN HOW OFTEN DO YOU SMOKE CIGARETTES?EVERY DAY PATIENT COUNSELED ON THE DANGERS OF TOBACCO USE AND URGED TO QUIT:05/26/2020 VAPORNO E-CIGARETTENO LATEX QUESTIONNAIRE LATEX ALLERGY : HAVE YOU EVER DEVELOPED ANY TYPE OF REACTION AFTER HANDLING LATEX PRODUCTS SUCH RUBBER GLOVES, CONDOMS, DIAPHRAGMS, BALLOONS, SOCKS, OR UNDERWEAR?NO LATEX ALLERGY : HAVE YOU EVER DEVELOPED ANY TYPE OF REACTION DURING OR AFTER DENTAL APPOINTMENT, VAGINAL/RECTAL EXAMINATION, SURGICAL PROCEDURE, OR ANY OTHER EXPOSURE?NO LATEX RISK : HAVE YOU EVER HAD ANY DIFFICULTY BREATHING OR HIVES AFTER EATING OR HANDLING ANY FRUITS, OR VEGETABLES; SUCH KIWI, BANANAS, STONE FRUITS, OR CHESTNUTSNO LATEX RISK : DO YOU HAVE A PREVIOUS PERSONAL HISTORY OF MORE THAN NINE SURGERIES, SPINA BIFIDA, OR REPEATED CATHERIZATIONS? YES LATEX RISK : ARE YOU FREQUENTLY EXPOSED TO LATEX PRODUCTS IN YOUR OCCUPATION?NO DATE ASKED : 07/27/2020 ALCOHOL USE: NO, ONCE EVERY 4 MONTH. ALCOHOL SCREENING DID YOU HAVE A DRINK CONTAINING ALCOHOL IN THE PAST YEAR?YES HOW OFTEN DID YOU HAVE A DRINK CONTAINING ALCOHOL IN THE PAST YEAR?MONTHLY OR LESS (1 POINT) POINTS1 INTERPRETATIONNEGATIVE RECREATIONAL DRUG USE DRUG USE?NO CAFFEINE CAFFEINE USE?YES 2-3 DAILY SEXUAL HX HAD SEX IN THE LAST 12 MONTHS (VAGINAL, ORAL, OR ANAL)?NO HAVE YOU EVER HAD AN STD?NO HIV / HEP-C SCREENING HIV TEST OFFERED TO PATIENT:YES DATE OFFERED:06/28/2017 TEST ACCEPTED:NO HEP-C TEST OFFERED TO PATIENT:YES DATE OFFERED:06/28/2017 REASON:PATIENT DECLINED TEST ACCEPTED:NO REASON:PATIENT DECLINED LATTER DAY [id number] NONE NO ORIENTAL ORTHODOX BELIEFS THAT WOULD IMPACT HEALTH CARE. LANGUAGE LANGUAGES SPOKEN:OCCITAN EDUCATION LEVEL OF EDUCATION:HIGH SCHOOL GED LEARNING BARRIERS / SPECIAL NEEDS CHANGE FROM LAST VISIT?NO BARRIERS TO LEARNING?NO HEARING IMPAIRED?NO TINITUS VISION IMPAIRED?YES :CORRECTIVE LENSES COGNITIVELY IMPAIRED?NO READINESS TO LEARN?YES LEARNING PREFERENCES?NO LEARNING CAPABILITIES PRESENT?YES EMOTIONAL BARRIERS?NO SPECIAL DEVICES?YES :CANE NEEDED RESOURCE RECOVERY SPECIALIST NEEDED?NO DOMESTIC VIOLENCE DO YOU FEEL SAFE IN YOUR ENVIRONMENT?YES OCCUPATION: DISABLED. DIET: AVOIDS GREASY, FRIED FOODS, DAIRY.TRIES TO EAT SMALLER PORTIONS. EXERCISE: LOWER BACK EXERCISES, WALKS TOLERATED. MARITAL STATUS: .. OTHERS AT HOME: DAUGHTER. - PFS REFERRAL NEEDED?NO CLERGY REFERRAL NEEDED?NO PUBLIC HEALTH REFERRAL NEEDED?NO HAS THE PATIENT BEEN EDUCATED REGARDING HIS/HER PLAN OF CARE?YES HAS THE PATIENT BEEN EDUCATED REGARDING PAIN, THE RISK FOR PAIN, THE IMPORTANCE OF EFFECTIVE PAIN MANAGEMENT, AND THE PAIN ASSESSMENT PROCESS?YES ADVANCE DIRECTIVE ADVANCE DIRECTIVE DISCUSSED WITH PATIENT:YES PT STATES SHE HAS A HEALTH CARE PROXY-RAH ROSARIO [phone] HOSPITALIZATION/MAJOR DIAGNOSTIC PROCEDURE SURGICAL RELATED REVIEW OF SYSTEMS CONSTITUTIONAL: ANY RECENT FEVER NO . CHILLS NO . WEIGHT CHANGE OF UNKNOWN REASONS NO . GASTROENTEROLOGY: NEW UNEXPLAINABLE CHANGES IN BOWEL CONTROL NO . CONSTIPATION NO . GENITOURINARY: ANY NEW CHANGE IN BLADDER CONTROL? NO . NEUROLOGY: NEW ONSET DIZZINESS OR NEUROLOGICAL CHANGES NOT MENTIONED NO . NEW NUMBNESS OR PAIN PATTERNS NOT MENTIONED AND PERTINENT TO TODAY'S VISIT NO . CARDIOLOGY: NEW CHEST PRESSURE NO . PATIENT DENIES NO . RESPIRATORY: UNEXPLAINABLE COUGH NO . NEW SHORTNESS OF BREATH NO . VITAL SIGNS WT 125 LBS, HT 64 IN, BMI 21.45 INDEX, BP 126/55 MM HG, HR 85 /MIN, RR 18 /MIN, TEMP 98.3 F, OXYGEN SAT % 96%, SAFE IN ENV? (Y/N) YEST.CARYN CORLEY. EXAMINATION GENERAL EXAMINATION: GENERAL AWAKE,ALERT ,PLEASANT . PSYCH AFFECT NORMAL . LUNGS: LUNG LINDSEY ARE CLEAR TO AUSCULTATION BILATERALLY. GOOD MOVEMENT OF AIR . HEART: S1, S2 IN A REGULAR RATE AND RHYTHM. NO SIGNIFICANT MURMURS, RUBS OR GALLOPS NOTED . MUSCULOSKELETAL: MUSCLE STRENGTH TESTING 5/5 BILATERAL LOWER EXTREMITIES. LUMBAR: PALPATION: + FOR PAIN OVER L/S SPINE. + FOR PAIN OVER L/S PARASPINALS WELL-HEALED SURGICAL SCAR L/S AXIS. DIAGNOSTIC TESTS REVIEWEDMRI L/S SPINE . 06/2019. ASSESSMENTS SPONDYLOSIS WITHOUT MYELOPATHY OR RADICULOPATHY, LUMBAR REGION - M47.816 (PRIMARY) OTHER CHRONIC PAIN - G89.29 POST LAMINECTOMY SYNDROME - M96.1 TREATMENT SPONDYLOSIS WITHOUT MYELOPATHY OR RADICULOPATHY, LUMBAR REGION NOTES: BILATERAL DIAGNOSTIC LUMBAR FACET BLOCK L4-5,L5-S1 PRINTED AND REVIEWED PRE PROCEDURE WITH PATIENT EZEKIEL CORLEY. OTHER CHRONIC PAIN PAIN PROCEDURE LOGDATE OF PROCEDURE1PROCEDURE:BILATERAL DIAGNOSTIC LUMBAR FACET BLOCK #1 L4-L5,L5-X8OZWWHV OF PRE SEDATE0/0RESULT:GREATER THAN 80% REDUCTION IN PAIN FOR SEVERAL HOURS POSTPROCEDURESLUIS SANTOS 07/28/2020 5:14:14 PM > ANDREA, CAN YOU PLEASE PUT THE PROCEDURE RESULTS IN THIS PROCEDURE LOG? THANKS. PROCEDURE CODES FA211 ESTABILISHED PATIENT [facility] FACILITY CHARGE DISPOSITION & COMMUNICATION FOLLOW UP POST PROCEDURE (REASON: BILATERAL DIAGNOSTIC LUMBAR FACET BLOCK L4-5,L5-S1) ELECTRONICALLY SIGNED BY CARIDAD HENLEY ON 07/30/2020 AT 12:37 PM EDT DISCLAIMER : THIS IS A VISIT SUMMARY EXTRACTED FROM THE [employer] CHART. IT IS NOT A COPY OF THE [employer]TM[employer] by [employer] PROGRESS NOTE. ZINA
--- NOTE | 2020-07-31 07:22 | ECWPNPC ---
PATIENT NAME: LOGAN CRAVEN : 1960 GENDER: FEMALE VISIT DATE: 07/27/2020 DISCHARGE DATE: 07/27/20 1058 VISIT LOCKED DATE TIME: PHYSICIAN: ANDREA ELIAS PHYSICIAN PAGER NO: ACTIVE RESOURCE: ANDREA ELIAS REASON FOR APPOINTMENT 1. POST BILATERAL DIAGNOSTIC LUMBAR FACET BLOCK #1 L4-L5, L5-S1 HISTORY OF PRESENT ILLNESS GENERAL: HERE FOR POST PROCEDURE FOLLOW-UP. HAD BILATERAL L4-5, L5-S1 LUMBAR DIAGNOSTIC FACET BLOCK ON 07/12/2020. HOURLY DIARY IS REVIEWED AND SHOWS GREATER THAN 80% REDUCTION IN PAIN FOR SEVERAL DAYS. PAIN IS BEGINNING TO RETURN TO BASELINE. DISCUSSED DIAGNOSTIC TESTING #2 AND PROCEEDING WITH RADIOFREQUENCY.-. FALL RISK SCREENING: SCREENING : NO FALLS REPORTED IN THE LAST YEAR. PAIN SCREENING: PATIENT HAS A COMPLAINT OF ACUTE OR CHRONIC PAIN :YES LOCATION OF PAIN:LOW BACK INTENSITY OF PAIN (SCALE OF 1 TO 10):4 WHAT DOES YOUR PAIN FEEL LIKE:CONTINOUS DURATION:CONSTANT PAIN IS INCREASED BY:ACTIVITIES, PROLONGED STANDING, OTHERS WALKING PAIN IS DECREASED BY:OTHERS RESTING AND HEAT AND ICE NURSING NOTE: -. PAIN CENTER INTAKE QUESTIONS: DO YOU HAVE A HISTORY OF MRSA? :NO DO YOU TAKE A BLOOD THINNERS? :YES ELMIRON DO YOU HAVE ANY BLEEDING DISORDERS? :NO ANY NEW NUMBNESS OR WEAKNESS IN YOUR LEGS OR ARMS? :NO ANY PACEMAKER,DEFIBRILLATOR, OR DORSAL COLUMN STIMULATOR? :NO DO YOU HAVE ANY RASHES OR OPEN SORES? :NO ARE YOU ALLERGIC TO IV DYE? :NO ARE YOU DIABETIC? :NO ANY NEW PROBLEMS WITH YOUR MEDICATIONS? :NO HAVE YOU RECEIVED A VACCINE IN THE PAST 30 DAYS? :NO DO YOU PLAN TO RECEIVE A VACCINE IN THE NEXT 21 DAYS? :NO DO YOU NEED ANY PRESCRIPTION? :NO DO YOU TAKE ANY IMMUNOSUPPRESSIVE MEDICATIONS? :YES LEFLUNOMIDE AND ENBREL SURECLICK IS THERE A CHANCE YOU COULD BE ? :NO ARE YOU BREAST FEEDING? :NO CURRENT MEDICATIONS TAKING VITAMIN D 2000 UNIT CAPSULE 1 TABLET ORALLY ONCE A DAY TAKING CANE . MISCELLANEOUS QUAD CANE _ QD R27 TAKING CALCIUM 600 + D 600-400 MG-UNIT TABLET 1 TABLET ORALLY ONCE A DAY TAKING ELMIRON 100 MG CAPSULE 1 CAPSULE ON AN EMPTY STOMACH 1 TABLET THREE A DAY TAKING LEFLUNOMIDE 20 MG TABLET 1 TABLET ORALLY ONCE A DAY TAKING ENBREL SURECLICK 50 MG/ML SOLUTION AUTO-INJECTOR DIRECTED SUBCUTANEOUS ONCE A WEEK TAKING CYANOCOBALAMIN 500 MCG TABLET 1 TABLET ORALLY 1 EVERY 5 DAYS TAKING CARAFATE 1 GM TABLET 1 TABLET ON AN EMPTY STOMACH ORALLY AC TID TAKING ATORVASTATIN CALCIUM 20 MG TABLET 1 TABLET ORALLY ONCE A DAY TAKING FISH OIL 1000 MG CAPSULE 1 CAPSULE ORALLY ONCE A DAY TAKING ESCITALOPRAM OXALATE 10 MG TABLET 15MG 1.5 TABLET ORALLY ONCE A DAY TAKING ESOMEPRAZOLE MAGNESIUM 40 MG CAPSULE DELAYED RELEASE 1 CAPSULE ORALLY AC BID TAKING CARISOPRODOL 350 MG TABLET 1 TABLET NEEDED ORALLY TID PRN, MDD 3 TAKING HYDROCODONE-ACETAMINOPHEN 5-325 MG TABLET 1 TABLET NEEDED ORALLY TID PRN MDD = 3 MEDICATION LIST REVIEWED AND RECONCILED WITH THE PATIENT PAST MEDICAL HISTORY RA/OSTEOARTHRITIS/FIBROMYALGIA NICOTINE ADDICTION-08/2011 FEV1 2.5L (101%)/RATIO 97%-1 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 GERD/DYSPEPSIA-06/2016 NORMAL EGD/COLON/SB CAPSULE-R HYPERLIPIDEMIA 2B ENDOMETRIOSIS 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 SPENCER 2008 FOLLOWS WITH WOMAN TO WOMAN HISTORY OF TUBULAR ADENOMA-NORMAL COLONOSCOPY APRIL 2009 NORMAL COLONOSCOPY C - RANDOM BIOPSIES-[place] COLONOSCOPY 07/18/16 REINDL CERVICAL DJD STATUS POST MULTILEVEL FUSION-01/2010 MRI STABLE ACDF C BASELINE DJD ATROPHIC VAGINITIS OSTEOPENIA VITAMIN D DEFICIENCY CHRONIC SINUSITIS / NONE LATELY RECURRENT UTI / YEARS AGO CHRONIC DIARRHEA STATUS POST LAPAROSCOPIC CHOLECYSTECTOMY JULY 2009//[id number] CHRONIC DRY EYES MEMORY LOSS 2 INSOMNIA, WORK STRESS-12/2011 NORMAL MRI BRAIN S AND NORMAL WORKUP LUMBAR DJD-L2/3 BULGE C L IF HNP C L L2 COMPRESSION, L3/4 SEVERE CCS C B L3 COMPRESSION BY 03/2017 MRI LONG-TERM DISABILITY-TAKEN OOW 08/05/[address] BARAJAS, 01/2014 FILLED OUT LTD PAPERWORK FOR GUARDIAN-PATIENT DEFERRED WCE INSOMNIA, COOMORBID ANXIETY OCULAR SURFACE DISEASE ALLERGIES METHOTREXATE (ANTI-RHEUMATIC): MIGRANES - SIDE EFFECTS CYMBALTA: RACING PLUSE, SHAKES - ALLERGY WELLBUTRIN: PALPITATIONS, SEVERE - ALLERGY SULFA (FOR ALLERGY USE ONLY): NAUSEA/VOMITING - ALLERGY LYRICA: PALPITATIONS - ALLERGY CELEXA: PALPITATIONS - SIDE EFFECTS ORENCIA: ANAPHYLAXIS - ALLERGY TOPICAL ALOE VERA: SEVERE ITCHING CANNOT TOLERATE ASA BASED PRODUCTS/ NSAIDS: HX STOMACH BLEED - CONTRAINDICATION SURGICAL HISTORY LAPAROSCOPY X2 CHRISTINE BTL 1982 TVH [address] SPENCER 2008 VAGINAL CUFF BX. IRMA CHANDLER NP 03/07 CHOLECYSTECTOMY 06/09 ACDF-C4-T1 10/06 R BREAST [id number] 09/2010 ABOVE L CTR- FISH 10/27/14 L4-L5 FUSION/LAMINECTOMY 09/2013 NORMAL EGD/COLON/SB CAPSULE-R 06/2016 FUSION C5 C6 1999 HYSTERECTOMY 1988 BENIGN MOLE REMOVAL 2018 SOCIAL HISTORY GENERAL: TOBACCO USE ARE YOU A:CURRENT SMOKER ARE YOU INTERESTED IN QUITTING?THINKING ABOUT QUITTING COUNSELED THE PATIENT ON SMOKING CESSATION, EDUCATION [id number]/30/2021 HOW MANY CIGARETTES A DAY DO YOU SMOKE?5 OR LESS HOW SOON AFTER YOU WAKE UP DO YOU SMOKE YOUR FIRST CIGARETTE?AFTER 60 MIN HOW OFTEN DO YOU SMOKE CIGARETTES?EVERY DAY PATIENT COUNSELED ON THE DANGERS OF TOBACCO USE AND URGED TO QUIT:05/26/2020 VAPORNO E-CIGARETTENO LATEX QUESTIONNAIRE LATEX ALLERGY : HAVE YOU EVER DEVELOPED ANY TYPE OF REACTION AFTER HANDLING LATEX PRODUCTS SUCH RUBBER GLOVES, CONDOMS, DIAPHRAGMS, BALLOONS, SOCKS, OR UNDERWEAR?NO LATEX ALLERGY : HAVE YOU EVER DEVELOPED ANY TYPE OF REACTION DURING OR AFTER DENTAL APPOINTMENT, VAGINAL/RECTAL EXAMINATION, SURGICAL PROCEDURE, OR ANY OTHER EXPOSURE?NO LATEX RISK : HAVE YOU EVER HAD ANY DIFFICULTY BREATHING OR HIVES AFTER EATING OR HANDLING ANY FRUITS, OR VEGETABLES; SUCH KIWI, BANANAS, STONE FRUITS, OR CHESTNUTSNO LATEX RISK : DO YOU HAVE A PREVIOUS PERSONAL HISTORY OF MORE THAN NINE SURGERIES, SPINA BIFIDA, OR REPEATED CATHERIZATIONS? YES LATEX RISK : ARE YOU FREQUENTLY EXPOSED TO LATEX PRODUCTS IN YOUR OCCUPATION?NO DATE ASKED : 07/27/2020 ALCOHOL USE: NO, ONCE EVERY 4 MONTH. ALCOHOL SCREENING DID YOU HAVE A DRINK CONTAINING ALCOHOL IN THE PAST YEAR?YES HOW OFTEN DID YOU HAVE A DRINK CONTAINING ALCOHOL IN THE PAST YEAR?MONTHLY OR LESS (1 POINT) POINTS1 INTERPRETATIONNEGATIVE RECREATIONAL DRUG USE DRUG USE?NO CAFFEINE CAFFEINE USE?YES 2-3 DAILY SEXUAL HX HAD SEX IN THE LAST 12 MONTHS (VAGINAL, ORAL, OR ANAL)?NO HAVE YOU EVER HAD AN STD?NO HIV / HEP-C SCREENING HIV TEST OFFERED TO PATIENT:YES DATE OFFERED:06/28/2017 TEST ACCEPTED:NO HEP-C TEST OFFERED TO PATIENT:YES DATE OFFERED:06/28/2017 REASON:PATIENT DECLINED TEST ACCEPTED:NO REASON:PATIENT DECLINED CHRISTIANITY [id number] NONE NO EPISCOPALIAN BELIEFS THAT WOULD IMPACT HEALTH CARE. LANGUAGE LANGUAGES SPOKEN:CZECH EDUCATION LEVEL OF EDUCATION:HIGH SCHOOL GED LEARNING BARRIERS / SPECIAL NEEDS CHANGE FROM LAST VISIT?NO BARRIERS TO LEARNING?NO HEARING IMPAIRED?NO TINITUS VISION IMPAIRED?YES :CORRECTIVE LENSES COGNITIVELY IMPAIRED?NO READINESS TO LEARN?YES LEARNING PREFERENCES?NO LEARNING CAPABILITIES PRESENT?YES EMOTIONAL BARRIERS?NO SPECIAL DEVICES?YES :CANE NEEDED BUMPER STRAIGHTENER NEEDED?NO DOMESTIC VIOLENCE DO YOU FEEL SAFE IN YOUR ENVIRONMENT?YES OCCUPATION: DISABLED. DIET: AVOIDS GREASY, FRIED FOODS, DAIRY.TRIES TO EAT SMALLER PORTIONS. EXERCISE: LOWER BACK EXERCISES, WALKS TOLERATED. MARITAL STATUS: .. OTHERS AT HOME: DAUGHTER. - PFS REFERRAL NEEDED?NO CLERGY REFERRAL NEEDED?NO PUBLIC HEALTH REFERRAL NEEDED?NO HAS THE PATIENT BEEN EDUCATED REGARDING HIS/HER PLAN OF CARE?YES HAS THE PATIENT BEEN EDUCATED REGARDING PAIN, THE RISK FOR PAIN, THE IMPORTANCE OF EFFECTIVE PAIN MANAGEMENT, AND THE PAIN ASSESSMENT PROCESS?YES ADVANCE DIRECTIVE ADVANCE DIRECTIVE DISCUSSED WITH PATIENT:YES PT STATES SHE HAS A HEALTH CARE PROXY-RAH ROSARIO [phone] HOSPITALIZATION/MAJOR DIAGNOSTIC PROCEDURE SURGICAL RELATED REVIEW OF SYSTEMS CONSTITUTIONAL: ANY RECENT FEVER NO . CHILLS NO . WEIGHT CHANGE OF UNKNOWN REASONS NO . GASTROENTEROLOGY: NEW UNEXPLAINABLE CHANGES IN BOWEL CONTROL NO . CONSTIPATION NO . GENITOURINARY: ANY NEW CHANGE IN BLADDER CONTROL? NO . NEUROLOGY: NEW ONSET DIZZINESS OR NEUROLOGICAL CHANGES NOT MENTIONED NO . NEW NUMBNESS OR PAIN PATTERNS NOT MENTIONED AND PERTINENT TO TODAY'S VISIT NO . CARDIOLOGY: NEW CHEST PRESSURE NO . PATIENT DENIES NO . RESPIRATORY: UNEXPLAINABLE COUGH NO . NEW SHORTNESS OF BREATH NO . VITAL SIGNS WT 125 LBS, HT 64 IN, BMI 21.45 INDEX, BP 126/55 MM HG, HR 85 /MIN, RR 18 /MIN, TEMP 98.3 F, OXYGEN SAT % 96%, SAFE IN ENV? (Y/N) YEST.CARYN CORLEY. EXAMINATION GENERAL EXAMINATION: GENERAL AWAKE,ALERT ,PLEASANT . PSYCH AFFECT NORMAL . LUNGS: LUNG LINDSEY ARE CLEAR TO AUSCULTATION BILATERALLY. GOOD MOVEMENT OF AIR . HEART: S1, S2 IN A REGULAR RATE AND RHYTHM. NO SIGNIFICANT MURMURS, RUBS OR GALLOPS NOTED . MUSCULOSKELETAL: MUSCLE STRENGTH TESTING 5/5 BILATERAL LOWER EXTREMITIES. LUMBAR: PALPATION: + FOR PAIN OVER L/S SPINE. + FOR PAIN OVER L/S PARASPINALS WELL-HEALED SURGICAL SCAR L/S AXIS. DIAGNOSTIC TESTS REVIEWEDMRI L/S SPINE . 06/2019. ASSESSMENTS SPONDYLOSIS WITHOUT MYELOPATHY OR RADICULOPATHY, LUMBAR REGION - M47.816 (PRIMARY) OTHER CHRONIC PAIN - G89.29 POST LAMINECTOMY SYNDROME - M96.1 TREATMENT SPONDYLOSIS WITHOUT MYELOPATHY OR RADICULOPATHY, LUMBAR REGION NOTES: BILATERAL DIAGNOSTIC LUMBAR FACET BLOCK L4-5,L5-S1 PRINTED AND REVIEWED PRE PROCEDURE WITH PATIENT EZEKIEL CORLEY. OTHER CHRONIC PAIN PAIN PROCEDURE LOGDATE OF PROCEDURE1PROCEDURE:BILATERAL DIAGNOSTIC LUMBAR FACET BLOCK #1 L4-L5,L5-I2QGCWUY OF PRE SEDATE0/0RESULT:GREATER THAN 80% REDUCTION IN PAIN FOR SEVERAL HOURS POSTPROCEDURESLUIS SANTOS 07/28/2020 5:14:14 PM > ANDREA, CAN YOU PLEASE PUT THE PROCEDURE RESULTS IN THIS PROCEDURE LOG? THANKS. PROCEDURE CODES FA211 ESTABILISHED PATIENT [facility] FAC[facility] CHARGE DISPOSITION & COMMUNICATION FOLLOW UP POST PROCEDURE (REASON: BILATERAL DIAGNOSTIC LUMBAR FACET BLOCK L4-5,L5-S1) ELECTRONICALLY SIGNED BY CARIDAD HENLEY ON 07/30/2020 AT 12:37 PM EDT DISCLAIMER : THIS IS A VISIT SUMMARY EXTRACTED FROM THE [employer] CHART. IT IS NOT A COPY OF THE [employer] PROGRESS NOTE. ZINA
--- NOTE | 2020-07-31 07:23 | ECWPNPC ---
PATIENT NAME: LOGAN CRAVEN : 1960 GENDER: FEMALE VISIT DATE: 07/27/2020 DISCHARGE DATE: 07/27/20 1058 VISIT LOCKED DATE TIME: PHYSICIAN: ANDREA ELIAS PHYSICIAN PAGER NO: ACTIVE RESOURCE: ANDREA ELIAS REASON FOR APPOINTMENT 1. POST BILATERAL DIAGNOSTIC LUMBAR FACET BLOCK #1 L4-L5, L5-S1 HISTORY OF PRESENT ILLNESS GENERAL: HERE FOR POST PROCEDURE FOLLOW-UP. HAD BILATERAL L4-5, L5-S1 LUMBAR DIAGNOSTIC FACET BLOCK ON 07/12/2020. HOURLY DIARY IS REVIEWED AND SHOWS GREATER THAN 80% REDUCTION IN PAIN FOR SEVERAL DAYS. PAIN IS BEGINNING TO RETURN TO BASELINE. DISCUSSED DIAGNOSTIC TESTING #2 AND PROCEEDING WITH RADIOFREQUENCY.-. FALL RISK SCREENING: SCREENING : NO FALLS REPORTED IN THE LAST YEAR. PAIN SCREENING: PATIENT HAS A COMPLAINT OF ACUTE OR CHRONIC PAIN :YES LOCATION OF PAIN:LOW BACK INTENSITY OF PAIN (SCALE OF 1 TO 10):4 WHAT DOES YOUR PAIN FEEL LIKE:CONTINOUS DURATION:CONSTANT PAIN IS INCREASED BY:ACTIVITIES, PROLONGED STANDING, OTHERS WALKING PAIN IS DECREASED BY:OTHERS RESTING AND HEAT AND ICE NURSING NOTE: -. PAIN CENTER INTAKE QUESTIONS: DO YOU HAVE A HISTORY OF MRSA? :NO DO YOU TAKE A BLOOD THINNERS? :YES ELMIRON DO YOU HAVE ANY BLEEDING DISORDERS? :NO ANY NEW NUMBNESS OR WEAKNESS IN YOUR LEGS OR ARMS? :NO ANY PACEMAKER,DEFIBRILLATOR, OR DORSAL COLUMN STIMULATOR? :NO DO YOU HAVE ANY RASHES OR OPEN SORES? :NO ARE YOU ALLERGIC TO IV DYE? :NO ARE YOU DIABETIC? :NO ANY NEW PROBLEMS WITH YOUR MEDICATIONS? :NO HAVE YOU RECEIVED A VACCINE IN THE PAST 30 DAYS? :NO DO YOU PLAN TO RECEIVE A VACCINE IN THE NEXT 21 DAYS? :NO DO YOU NEED ANY PRESCRIPTION? :NO DO YOU TAKE ANY IMMUNOSUPPRESSIVE MEDICATIONS? :YES LEFLUNOMIDE AND ENBREL SURECLICK IS THERE A CHANCE YOU COULD BE ? :NO ARE YOU BREAST FEEDING? :NO CURRENT MEDICATIONS TAKING VITAMIN D 2000 UNIT CAPSULE 1 TABLET ORALLY ONCE A DAY TAKING CANE . MISCELLANEOUS QUAD CANE _ QD R27 TAKING CALCIUM 600 + D 600-400 MG-UNIT TABLET 1 TABLET ORALLY ONCE A DAY TAKING ELMIRON 100 MG CAPSULE 1 CAPSULE ON AN EMPTY STOMACH 1 TABLET THREE A DAY TAKING LEFLUNOMIDE 20 MG TABLET 1 TABLET ORALLY ONCE A DAY TAKING ENBREL SURECLICK 50 MG/ML SOLUTION AUTO-INJECTOR DIRECTED SUBCUTANEOUS ONCE A WEEK TAKING CYANOCOBALAMIN 500 MCG TABLET 1 TABLET ORALLY 1 EVERY 5 DAYS TAKING CARAFATE 1 GM TABLET 1 TABLET ON AN EMPTY STOMACH ORALLY AC TID TAKING ATORVASTATIN CALCIUM 20 MG TABLET 1 TABLET ORALLY ONCE A DAY TAKING FISH OIL 1000 MG CAPSULE 1 CAPSULE ORALLY ONCE A DAY TAKING ESCITALOPRAM OXALATE 10 MG TABLET 15MG 1.5 TABLET ORALLY ONCE A DAY TAKING ESOMEPRAZOLE MAGNESIUM 40 MG CAPSULE DELAYED RELEASE 1 CAPSULE ORALLY AC BID TAKING CARISOPRODOL 350 MG TABLET 1 TABLET NEEDED ORALLY TID PRN, MDD 3 TAKING HYDROCODONE-ACETAMINOPHEN 5-325 MG TABLET 1 TABLET NEEDED ORALLY TID PRN MDD = 3 MEDICATION LIST REVIEWED AND RECONCILED WITH THE PATIENT PAST MEDICAL HISTORY RA/OSTEOARTHRITIS/FIBROMYALGIA NICOTINE ADDICTION-08/2011 FEV1 2.5L (101%)/RATIO 97%-1 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 GERD/DYSPEPSIA-06/2016 NORMAL EGD/COLON/SB CAPSULE-R HYPERLIPIDEMIA 2B ENDOMETRIOSIS 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 SPENCER 2008 FOLLOWS WITH WOMAN TO WOMAN HISTORY OF TUBULAR ADENOMA-NORMAL COLONOSCOPY APRIL 2009 NORMAL COLONOSCOPY C - RANDOM BIOPSIES-[place] COLONOSCOPY 07/18/16 REINDL CERVICAL DJD STATUS POST MULTILEVEL FUSION-01/2010 MRI STABLE ACDF C BASELINE DJD ATROPHIC VAGINITIS OSTEOPENIA VITAMIN D DEFICIENCY CHRONIC SINUSITIS / NONE LATELY RECURRENT UTI / YEARS AGO CHRONIC DIARRHEA STATUS POST LAPAROSCOPIC CHOLECYSTECTOMY JULY 2009//[id number] CHRONIC DRY EYES MEMORY LOSS 2 INSOMNIA, WORK STRESS-12/2011 NORMAL MRI BRAIN S AND NORMAL WORKUP LUMBAR DJD-L2/3 BULGE C L IF HNP C L L2 COMPRESSION, L3/4 SEVERE CCS C B L3 COMPRESSION BY 03/2017 MRI LONG-TERM DISABILITY-TAKEN OOW 08/05/[address] BARAJAS, 01/2014 FILLED OUT LTD PAPERWORK FOR GUARDIAN-PATIENT DEFERRED WCE INSOMNIA, COOMORBID ANXIETY OCULAR SURFACE DISEASE ALLERGIES METHOTREXATE (ANTI-RHEUMATIC): MIGRANES - SIDE EFFECTS CYMBALTA: RACING PLUSE, SHAKES - ALLERGY WELLBUTRIN: PALPITATIONS, SEVERE - ALLERGY SULFA (FOR ALLERGY USE ONLY): NAUSEA/VOMITING - ALLERGY LYRICA: PALPITATIONS - ALLERGY CELEXA: PALPITATIONS - SIDE EFFECTS ORENCIA: ANAPHYLAXIS - ALLERGY TOPICAL ALOE VERA: SEVERE ITCHING CANNOT TOLERATE ASA BASED PRODUCTS/ NSAIDS: HX STOMACH BLEED - CONTRAINDICATION SURGICAL HISTORY LAPAROSCOPY X2 CHRISTINE BTL 1982 TVH [address] SPENCER 2008 VAGINAL CUFF BX. IRMA CHANDLER NP 03/07 CHOLECYSTECTOMY 06/09 ACDF-C4-T1 10/06 R BREAST [id number] 09/2010 ABOVE L CTR- FISH 10/27/14 L4-L5 FUSION/LAMINECTOMY 09/2013 NORMAL EGD/COLON/SB CAPSULE-R 06/2016 FUSION C5 C6 1999 HYSTERECTOMY 1988 BENIGN MOLE REMOVAL 2018 SOCIAL HISTORY GENERAL: TOBACCO USE ARE YOU A:CURRENT SMOKER ARE YOU INTERESTED IN QUITTING?THINKING ABOUT QUITTING COUNSELED THE PATIENT ON SMOKING CESSATION, EDUCATION CPGFVCNO48/30/2021 HOW MANY CIGARETTES A DAY DO YOU SMOKE?5 OR LESS HOW SOON AFTER YOU WAKE UP DO YOU SMOKE YOUR FIRST CIGARETTE?AFTER 60 MIN HOW OFTEN DO YOU SMOKE CIGARETTES?EVERY DAY PATIENT COUNSELED ON THE DANGERS OF TOBACCO USE AND URGED TO QUIT:05/26/2020 VAPORNO E-CIGARETTENO LATEX QUESTIONNAIRE LATEX ALLERGY : HAVE YOU EVER DEVELOPED ANY TYPE OF REACTION AFTER HANDLING LATEX PRODUCTS SUCH RUBBER GLOVES, CONDOMS, DIAPHRAGMS, BALLOONS, SOCKS, OR UNDERWEAR?NO LATEX ALLERGY : HAVE YOU EVER DEVELOPED ANY TYPE OF REACTION DURING OR AFTER DENTAL APPOINTMENT, VAGINAL/RECTAL EXAMINATION, SURGICAL PROCEDURE, OR ANY OTHER EXPOSURE?NO LATEX RISK : HAVE YOU EVER HAD ANY DIFFICULTY BREATHING OR HIVES AFTER EATING OR HANDLING ANY FRUITS, OR VEGETABLES; SUCH KIWI, BANANAS, STONE FRUITS, OR CHESTNUTSNO LATEX RISK : DO YOU HAVE A PREVIOUS PERSONAL HISTORY OF MORE THAN NINE SURGERIES, SPINA BIFIDA, OR REPEATED CATHERIZATIONS? YES LATEX RISK : ARE YOU FREQUENTLY EXPOSED TO LATEX PRODUCTS IN YOUR OCCUPATION?NO DATE ASKED : 07/27/2020 ALCOHOL USE: NO, ONCE EVERY 4 MONTH. ALCOHOL SCREENING DID YOU HAVE A DRINK CONTAINING ALCOHOL IN THE PAST YEAR?YES HOW OFTEN DID YOU HAVE A DRINK CONTAINING ALCOHOL IN THE PAST YEAR?MONTHLY OR LESS (1 POINT) POINTS1 INTERPRETATIONNEGATIVE RECREATIONAL DRUG USE DRUG USE?NO CAFFEINE CAFFEINE USE?YES 2-3 DAILY SEXUAL HX HAD SEX IN THE LAST 12 MONTHS (VAGINAL, ORAL, OR ANAL)?NO HAVE YOU EVER HAD AN STD?NO HIV / HEP-C SCREENING HIV TEST OFFERED TO PATIENT:YES DATE OFFERED:06/28/2017 TEST ACCEPTED:NO HEP-C TEST OFFERED TO PATIENT:YES DATE OFFERED:06/28/2017 REASON:PATIENT DECLINED TEST ACCEPTED:NO REASON:PATIENT DECLINED JEWISH [id number] NONE NO HINDUISM BELIEFS THAT WOULD IMPACT HEALTH CARE. LANGUAGE LANGUAGES SPOKEN:IRISH EDUCATION LEVEL OF EDUCATION:HIGH SCHOOL GED LEARNING BARRIERS / SPECIAL NEEDS CHANGE FROM LAST VISIT?NO BARRIERS TO LEARNING?NO HEARING IMPAIRED?NO TINITUS VISION IMPAIRED?YES :CORRECTIVE LENSES COGNITIVELY IMPAIRED?NO READINESS TO LEARN?YES LEARNING PREFERENCES?NO LEARNING CAPABILITIES PRESENT?YES EMOTIONAL BARRIERS?NO SPECIAL DEVICES?YES :CANE NEEDED MUSICAL ENGINEER NEEDED?NO DOMESTIC VIOLENCE DO YOU FEEL SAFE IN YOUR ENVIRONMENT?YES OCCUPATION: DISABLED. DIET: AVOIDS GREASY, FRIED FOODS, DAIRY.TRIES TO EAT SMALLER PORTIONS. EXERCISE: LOWER BACK EXERCISES, WALKS TOLERATED. MARITAL STATUS: .. OTHERS AT HOME: DAUGHTER. - PFS REFERRAL NEEDED?NO CLERGY REFERRAL NEEDED?NO PUBLIC HEALTH REFERRAL NEEDED?NO HAS THE PATIENT BEEN EDUCATED REGARDING HIS/HER PLAN OF CARE?YES HAS THE PATIENT BEEN EDUCATED REGARDING PAIN, THE RISK FOR PAIN, THE IMPORTANCE OF EFFECTIVE PAIN MANAGEMENT, AND THE PAIN ASSESSMENT PROCESS?YES ADVANCE DIRECTIVE ADVANCE DIRECTIVE DISCUSSED WITH PATIENT:YES PT STATES SHE HAS A HEALTH CARE PROXY-RAH ROSARIO [phone] HOSPITALIZATION/MAJOR DIAGNOSTIC PROCEDURE SURGICAL RELATED REVIEW OF SYSTEMS CONSTITUTIONAL: ANY RECENT FEVER NO . CHILLS NO . WEIGHT CHANGE OF UNKNOWN REASONS NO . GASTROENTEROLOGY: NEW UNEXPLAINABLE CHANGES IN BOWEL CONTROL NO . CONSTIPATION NO . GENITOURINARY: ANY NEW CHANGE IN BLADDER CONTROL? NO . NEUROLOGY: NEW ONSET DIZZINESS OR NEUROLOGICAL CHANGES NOT MENTIONED NO . NEW NUMBNESS OR PAIN PATTERNS NOT MENTIONED AND PERTINENT TO TODAY'S VISIT NO . CARDIOLOGY: NEW CHEST PRESSURE NO . PATIENT DENIES NO . RESPIRATORY: UNEXPLAINABLE COUGH NO . NEW SHORTNESS OF BREATH NO . VITAL SIGNS WT 125 LBS, HT 64 IN, BMI 21.45 INDEX, BP 126/55 MM HG, HR 85 /MIN, RR 18 /MIN, TEMP 98.3 F, OXYGEN SAT % 96%, SAFE IN ENV? (Y/N) YEST.CARYN CORLEY. EXAMINATION GENERAL EXAMINATION: GENERAL AWAKE,ALERT ,PLEASANT . PSYCH AFFECT NORMAL . LUNGS: LUNG LINDSEY ARE CLEAR TO AUSCULTATION BILATERALLY. GOOD MOVEMENT OF AIR . HEART: S1, S2 IN A REGULAR RATE AND RHYTHM. NO SIGNIFICANT MURMURS, RUBS OR GALLOPS NOTED . MUSCULOSKELETAL: MUSCLE STRENGTH TESTING 5/5 BILATERAL LOWER EXTREMITIES. LUMBAR: PALPATION: + FOR PAIN OVER L/S SPINE. + FOR PAIN OVER L/S PARASPINALS WELL-HEALED SURGICAL SCAR L/S AXIS. DIAGNOSTIC TESTS REVIEWEDMRI L/S SPINE . 06/2019. ASSESSMENTS SPONDYLOSIS WITHOUT MYELOPATHY OR RADICULOPATHY, LUMBAR REGION - M47.816 (PRIMARY) OTHER CHRONIC PAIN - G89.29 POST LAMINECTOMY SYNDROME - M96.1 TREATMENT SPONDYLOSIS WITHOUT MYELOPATHY OR RADICULOPATHY, LUMBAR REGION NOTES: BILATERAL DIAGNOSTIC LUMBAR FACET BLOCK L4-5,L5-S1 PRINTED AND REVIEWED PRE PROCEDURE WITH PATIENT EZEKIEL CORLEY. OTHER CHRONIC PAIN PAIN PROCEDURE LOGDATE OF PROCEDURE1PROCEDURE:BILATERAL DIAGNOSTIC LUMBAR FACET BLOCK #1 L4-L5,L5-A0QTWRCR OF PRE SEDATE0/0RESULT:GREATER THAN 80% REDUCTION IN PAIN FOR SEVERAL HOURS POSTPROCEDURESLUIS SANTOS 07/28/2020 5:14:14 PM > ANDREA, CAN YOU PLEASE PUT THE PROCEDURE RESULTS IN THIS PROCEDURE LOG? THANKS. PROCEDURE CODES FA211 ESTABILISHED PATIENT [facility] FACILITY CHARGE DISPOSITION & COMMUNICATION FOLLOW UP POST PROCEDURE (REASON: BILATERAL DIAGNOSTIC LUMBAR FACET BLOCK L4-5,L5-S1) ELECTRONICALLY SIGNED BY CARIDAD HENLEY ON 07/30/2020 AT 12:37 PM EDT DISCLAIMER : THIS IS A VISIT SUMMARY EXTRACTED FROM THE [facility] CHART. IT IS NOT A COPY OF THE [employer] PROGRESS NOTE. ZINA
--- NOTE | 2020-07-31 07:25 | ECWPNPC ---
PATIENT NAME: LOGAN CRVAEN : 1960 GENDER: FEMALE VISIT DATE: 07/27/2020 DISCHARGE DATE: 07/27/20 1058 VISIT LOCKED DATE TIME: PHYSICIAN: ANDREA ELIAS PHYSICIAN PAGER NO: ACTIVE RESOURCE: ANDREA ELIAS REASON FOR APPOINTMENT 1. POST BILATERAL DIAGNOSTIC LUMBAR FACET BLOCK #1 L4-L5, L5-S1 HISTORY OF PRESENT ILLNESS GENERAL: HERE FOR POST PROCEDURE FOLLOW-UP. HAD BILATERAL L4-5, L5-S1 LUMBAR DIAGNOSTIC FACET BLOCK ON 07/12/2020. HOURLY DIARY IS REVIEWED AND SHOWS GREATER THAN 80% REDUCTION IN PAIN FOR SEVERAL DAYS. PAIN IS BEGINNING TO RETURN TO BASELINE. DISCUSSED DIAGNOSTIC TESTING #2 AND PROCEEDING WITH RADIOFREQUENCY.-. FALL RISK SCREENING: SCREENING : NO FALLS REPORTED IN THE LAST YEAR. PAIN SCREENING: PATIENT HAS A COMPLAINT OF ACUTE OR CHRONIC PAIN :YES LOCATION OF PAIN:LOW BACK INTENSITY OF PAIN (SCALE OF 1 TO 10):4 WHAT DOES YOUR PAIN FEEL LIKE:CONTINOUS DURATION:CONSTANT PAIN IS INCREASED BY:ACTIVITIES, PROLONGED STANDING, OTHERS WALKING PAIN IS DECREASED BY:OTHERS RESTING AND HEAT AND ICE NURSING NOTE: -. PAIN CENTER INTAKE QUESTIONS: DO YOU HAVE A HISTORY OF MRSA? :NO DO YOU TAKE A BLOOD THINNERS? :YES ELMIRON DO YOU HAVE ANY BLEEDING DISORDERS? :NO ANY NEW NUMBNESS OR WEAKNESS IN YOUR LEGS OR ARMS? :NO ANY PACEMAKER,DEFIBRILLATOR, OR DORSAL COLUMN STIMULATOR? :NO DO YOU HAVE ANY RASHES OR OPEN SORES? :NO ARE YOU ALLERGIC TO IV DYE? :NO ARE YOU DIABETIC? :NO ANY NEW PROBLEMS WITH YOUR MEDICATIONS? :NO HAVE YOU RECEIVED A VACCINE IN THE PAST 30 DAYS? :NO DO YOU PLAN TO RECEIVE A VACCINE IN THE NEXT 21 DAYS? :NO DO YOU NEED ANY PRESCRIPTION? :NO DO YOU TAKE ANY IMMUNOSUPPRESSIVE MEDICATIONS? :YES LEFLUNOMIDE AND ENBREL SURECLICK IS THERE A CHANCE YOU COULD BE ? :NO ARE YOU BREAST FEEDING? :NO CURRENT MEDICATIONS TAKING VITAMIN D 2000 UNIT CAPSULE 1 TABLET ORALLY ONCE A DAY TAKING CANE . MISCELLANEOUS QUAD CANE _ QD R27 TAKING CALCIUM 600 + D 600-400 MG-UNIT TABLET 1 TABLET ORALLY ONCE A DAY TAKING ELMIRON 100 MG CAPSULE 1 CAPSULE ON AN EMPTY STOMACH 1 TABLET THREE A DAY TAKING LEFLUNOMIDE 20 MG TABLET 1 TABLET ORALLY ONCE A DAY TAKING ENBREL SURECLICK 50 MG/ML SOLUTION AUTO-INJECTOR DIRECTED SUBCUTANEOUS ONCE A WEEK TAKING CYANOCOBALAMIN 500 MCG TABLET 1 TABLET ORALLY 1 EVERY 5 DAYS TAKING CARAFATE 1 GM TABLET 1 TABLET ON AN EMPTY STOMACH ORALLY AC TID TAKING ATORVASTATIN CALCIUM 20 MG TABLET 1 TABLET ORALLY ONCE A DAY TAKING FISH OIL 1000 MG CAPSULE 1 CAPSULE ORALLY ONCE A DAY TAKING ESCITALOPRAM OXALATE 10 MG TABLET 15MG 1.5 TABLET ORALLY ONCE A DAY TAKING ESOMEPRAZOLE MAGNESIUM 40 MG CAPSULE DELAYED RELEASE 1 CAPSULE ORALLY AC BID TAKING CARISOPRODOL 350 MG TABLET 1 TABLET NEEDED ORALLY TID PRN, MDD 3 TAKING HYDROCODONE-ACETAMINOPHEN 5-325 MG TABLET 1 TABLET NEEDED ORALLY TID PRN MDD = 3 MEDICATION LIST REVIEWED AND RECONCILED WITH THE PATIENT PAST MEDICAL HISTORY RA/OSTEOARTHRITIS/FIBROMYALGIA NICOTINE ADDICTION-08/2011 FEV1 2.5L (101%)/RATIO 97%-1 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 GERD/DYSPEPSIA-06/2016 NORMAL EGD/COLON/SB CAPSULE-R HYPERLIPIDEMIA 2B ENDOMETRIOSIS 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 SPENCER 2008 FOLLOWS WITH WOMAN TO WOMAN HISTORY OF TUBULAR ADENOMA-NORMAL COLONOSCOPY APRIL 2009 NORMAL COLONOSCOPY C - RANDOM BIOPSIES-[place] COLONOSCOPY 07/18/16 REINDL CERVICAL DJD STATUS POST MULTILEVEL FUSION-01/2010 MRI STABLE ACDF C BASELINE DJD ATROPHIC VAGINITIS OSTEOPENIA VITAMIN D DEFICIENCY CHRONIC SINUSITIS / NONE LATELY RECURRENT UTI / YEARS AGO CHRONIC DIARRHEA STATUS POST LAPAROSCOPIC CHOLECYSTECTOMY JULY 2009//[id number] CHRONIC DRY EYES MEMORY LOSS 2 INSOMNIA, WORK STRESS-12/2011 NORMAL MRI BRAIN S AND NORMAL WORKUP LUMBAR DJD-L2/3 BULGE C L IF HNP C L L2 COMPRESSION, L3/4 SEVERE CCS C B L3 COMPRESSION BY 03/2017 MRI LONG-TERM DISABILITY-TAKEN OOW 08/05/[address] BARAJAS, 01/2014 FILLED OUT LTD PAPERWORK FOR GUARDIAN-PATIENT DEFERRED WCE INSOMNIA, COOMORBID ANXIETY OCULAR SURFACE DISEASE ALLERGIES METHOTREXATE (ANTI-RHEUMATIC): MIGRANES - SIDE EFFECTS CYMBALTA: RACING PLUSE, SHAKES - ALLERGY WELLBUTRIN: PALPITATIONS, SEVERE - ALLERGY SULFA (FOR ALLERGY USE ONLY): NAUSEA/VOMITING - ALLERGY LYRICA: PALPITATIONS - ALLERGY CELEXA: PALPITATIONS - SIDE EFFECTS ORENCIA: ANAPHYLAXIS - ALLERGY TOPICAL ALOE VERA: SEVERE ITCHING CANNOT TOLERATE ASA BASED PRODUCTS/ NSAIDS: HX STOMACH BLEED - CONTRAINDICATION SURGICAL HISTORY LAPAROSCOPY X2 CHRISTINE BTL 1982 TVH [address] SPENCER 2008 VAGINAL CUFF BX. IRMA CHANDLER NP 03/07 CHOLECYSTECTOMY 06/09 ACDF-C4-T1 10/06 R BREAST [id number] 09/2010 ABOVE L CTR- FISH 10/27/14 L4-L5 FUSION/LAMINECTOMY 09/2013 NORMAL EGD/COLON/SB CAPSULE-R 06/2016 FUSION C5 C6 1999 HYSTERECTOMY 1988 BENIGN MOLE REMOVAL 2018 SOCIAL HISTORY GENERAL: TOBACCO USE ARE YOU A:CURRENT SMOKER ARE YOU INTERESTED IN QUITTING?THINKING ABOUT QUITTING COUNSELED THE PATIENT ON SMOKING CESSATION, EDUCATION [id number]/30/2021 HOW MANY CIGARETTES A DAY DO YOU SMOKE?5 OR LESS HOW SOON AFTER YOU WAKE UP DO YOU SMOKE YOUR FIRST CIGARETTE?AFTER 60 MIN HOW OFTEN DO YOU SMOKE CIGARETTES?EVERY DAY PATIENT COUNSELED ON THE DANGERS OF TOBACCO USE AND URGED TO QUIT:05/26/2020 VAPORNO E-CIGARETTENO LATEX QUESTIONNAIRE LATEX ALLERGY : HAVE YOU EVER DEVELOPED ANY TYPE OF REACTION AFTER HANDLING LATEX PRODUCTS SUCH RUBBER GLOVES, CONDOMS, DIAPHRAGMS, BALLOONS, SOCKS, OR UNDERWEAR?NO LATEX ALLERGY : HAVE YOU EVER DEVELOPED ANY TYPE OF REACTION DURING OR AFTER DENTAL APPOINTMENT, VAGINAL/RECTAL EXAMINATION, SURGICAL PROCEDURE, OR ANY OTHER EXPOSURE?NO LATEX RISK : HAVE YOU EVER HAD ANY DIFFICULTY BREATHING OR HIVES AFTER EATING OR HANDLING ANY FRUITS, OR VEGETABLES; SUCH KIWI, BANANAS, STONE FRUITS, OR CHESTNUTSNO LATEX RISK : DO YOU HAVE A PREVIOUS PERSONAL HISTORY OF MORE THAN NINE SURGERIES, SPINA BIFIDA, OR REPEATED CATHERIZATIONS? YES LATEX RISK : ARE YOU FREQUENTLY EXPOSED TO LATEX PRODUCTS IN YOUR OCCUPATION?NO DATE ASKED : 07/27/2020 ALCOHOL USE: NO, ONCE EVERY 4 MONTH. ALCOHOL SCREENING DID YOU HAVE A DRINK CONTAINING ALCOHOL IN THE PAST YEAR?YES HOW OFTEN DID YOU HAVE A DRINK CONTAINING ALCOHOL IN THE PAST YEAR?MONTHLY OR LESS (1 POINT) POINTS1 INTERPRETATIONNEGATIVE RECREATIONAL DRUG USE DRUG USE?NO CAFFEINE CAFFEINE USE?YES 2-3 DAILY SEXUAL HX HAD SEX IN THE LAST 12 MONTHS (VAGINAL, ORAL, OR ANAL)?NO HAVE YOU EVER HAD AN STD?NO HIV / HEP-C SCREENING HIV TEST OFFERED TO PATIENT:YES DATE OFFERED:06/28/2017 TEST ACCEPTED:NO HEP-C TEST OFFERED TO PATIENT:YES DATE OFFERED:06/28/2017 REASON:PATIENT DECLINED TEST ACCEPTED:NO REASON:PATIENT DECLINED YAZDANISM [id number] NONE NO ADVENT BELIEFS THAT WOULD IMPACT HEALTH CARE. LANGUAGE LANGUAGES SPOKEN:KHMER EDUCATION LEVEL OF EDUCATION:HIGH SCHOOL GED LEARNING BARRIERS / SPECIAL NEEDS CHANGE FROM LAST VISIT?NO BARRIERS TO LEARNING?NO HEARING IMPAIRED?NO TINITUS VISION IMPAIRED?YES :CORRECTIVE LENSES COGNITIVELY IMPAIRED?NO READINESS TO LEARN?YES LEARNING PREFERENCES?NO LEARNING CAPABILITIES PRESENT?YES EMOTIONAL BARRIERS?NO SPECIAL DEVICES?YES :CANE NEEDED STARCH COOKER NEEDED?NO DOMESTIC VIOLENCE DO YOU FEEL SAFE IN YOUR ENVIRONMENT?YES OCCUPATION: DISABLED. DIET: AVOIDS GREASY, FRIED FOODS, DAIRY.TRIES TO EAT SMALLER PORTIONS. EXERCISE: LOWER BACK EXERCISES, WALKS TOLERATED. MARITAL STATUS: .. OTHERS AT HOME: DAUGHTER. - PFS REFERRAL NEEDED?NO CLERGY REFERRAL NEEDED?NO PUBLIC HEALTH REFERRAL NEEDED?NO HAS THE PATIENT BEEN EDUCATED REGARDING HIS/HER PLAN OF CARE?YES HAS THE PATIENT BEEN EDUCATED REGARDING PAIN, THE RISK FOR PAIN, THE IMPORTANCE OF EFFECTIVE PAIN MANAGEMENT, AND THE PAIN ASSESSMENT PROCESS?YES ADVANCE DIRECTIVE ADVANCE DIRECTIVE DISCUSSED WITH PATIENT:YES PT STATES SHE HAS A HEALTH CARE PROXY-RAH ROSARIO [phone] HOSPITALIZATION/MAJOR DIAGNOSTIC PROCEDURE SURGICAL RELATED REVIEW OF SYSTEMS CONSTITUTIONAL: ANY RECENT FEVER NO . CHILLS NO . WEIGHT CHANGE OF UNKNOWN REASONS NO . GASTROENTEROLOGY: NEW UNEXPLAINABLE CHANGES IN BOWEL CONTROL NO . CONSTIPATION NO . GENITOURINARY: ANY NEW CHANGE IN BLADDER CONTROL? NO . NEUROLOGY: NEW ONSET DIZZINESS OR NEUROLOGICAL CHANGES NOT MENTIONED NO . NEW NUMBNESS OR PAIN PATTERNS NOT MENTIONED AND PERTINENT TO TODAY'S VISIT NO . CARDIOLOGY: NEW CHEST PRESSURE NO . PATIENT DENIES NO . RESPIRATORY: UNEXPLAINABLE COUGH NO . NEW SHORTNESS OF BREATH NO . VITAL SIGNS WT 125 LBS, HT 64 IN, BMI 21.45 INDEX, BP 126/55 MM HG, HR 85 /MIN, RR 18 /MIN, TEMP 98.3 F, OXYGEN SAT % 96%, SAFE IN ENV? (Y/N) YEST.CARYN CORLEY. EXAMINATION GENERAL EXAMINATION: GENERAL AWAKE,ALERT ,PLEASANT . PSYCH AFFECT NORMAL . LUNGS: LUNG LINDSEY ARE CLEAR TO AUSCULTATION BILATERALLY. GOOD MOVEMENT OF AIR . HEART: S1, S2 IN A REGULAR RATE AND RHYTHM. NO SIGNIFICANT MURMURS, RUBS OR GALLOPS NOTED . MUSCULOSKELETAL: MUSCLE STRENGTH TESTING 5/5 BILATERAL LOWER EXTREMITIES. LUMBAR: PALPATION: + FOR PAIN OVER L/S SPINE. + FOR PAIN OVER L/S PARASPINALS WELL-HEALED SURGICAL SCAR L/S AXIS. DIAGNOSTIC TESTS REVIEWEDMRI L/S SPINE . 06/2019. ASSESSMENTS SPONDYLOSIS WITHOUT MYELOPATHY OR RADICULOPATHY, LUMBAR REGION - M47.816 (PRIMARY) OTHER CHRONIC PAIN - G89.29 POST LAMINECTOMY SYNDROME - M96.1 TREATMENT SPONDYLOSIS WITHOUT MYELOPATHY OR RADICULOPATHY, LUMBAR REGION NOTES: BILATERAL DIAGNOSTIC LUMBAR FACET BLOCK L4-5,L5-S1 PRINTED AND REVIEWED PRE PROCEDURE WITH PATIENT EZEKIEL CORLEY. OTHER CHRONIC PAIN PAIN PROCEDURE LOGDATE OF PROCEDURE1PROCEDURE:BILATERAL DIAGNOSTIC LUMBAR FACET BLOCK #1 L4-L5,L5-C2AZZMOC OF PRE SEDATE0/0RESULT:GREATER THAN 80% REDUCTION IN PAIN FOR SEVERAL HOURS POSTPROCEDURESLUIS SANTOS 07/28/2020 5:14:14 PM > ANDREA, CAN YOU PLEASE PUT THE PROCEDURE RESULTS IN THIS PROCEDURE LOG? THANKS. PROCEDURE CODES FA211 ESTABILISHED PATIENT [facility] FACILITY CHARGE DISPOSITION & COMMUNICATION FOLLOW UP POST PROCEDURE (REASON: BILATERAL DIAGNOSTIC LUMBAR FACET BLOCK L4-5,L5-S1) ELECTRONICALLY SIGNED BY CARIDAD HENLEY ON 07/30/2020 AT 12:37 PM EDT DISCLAIMER : THIS IS A VISIT SUMMARY EXTRACTED FROM THE [employer] CHART. IT IS NOT A COPY OF THE [employer] PROGRESS NOTE. ZINA
--- NOTE | 2020-07-31 07:27 | ECWPNPC ---
PATIENT NAME: LOGAN CRAVEN : 1960 GENDER: FEMALE VISIT DATE: 07/27/2020 DISCHARGE DATE: 07/27/20 1058 VISIT LOCKED DATE TIME: PHYSICIAN: ANDREA ELIAS PHYSICIAN PAGER NO: ACTIVE RESOURCE: ANDREA ELIAS REASON FOR APPOINTMENT 1. POST BILATERAL DIAGNOSTIC LUMBAR FACET BLOCK #1 L4-L5, L5-S1 HISTORY OF PRESENT ILLNESS GENERAL: HERE FOR POST PROCEDURE FOLLOW-UP. HAD BILATERAL L4-5, L5-S1 LUMBAR DIAGNOSTIC FACET BLOCK ON 07/12/2020. HOURLY DIARY IS REVIEWED AND SHOWS GREATER THAN 80% REDUCTION IN PAIN FOR SEVERAL DAYS. PAIN IS BEGINNING TO RETURN TO BASELINE. DISCUSSED DIAGNOSTIC TESTING #2 AND PROCEEDING WITH RADIOFREQUENCY.-. FALL RISK SCREENING: SCREENING : NO FALLS REPORTED IN THE LAST YEAR. PAIN SCREENING: PATIENT HAS A COMPLAINT OF ACUTE OR CHRONIC PAIN :YES LOCATION OF PAIN:LOW BACK INTENSITY OF PAIN (SCALE OF 1 TO 10):4 WHAT DOES YOUR PAIN FEEL LIKE:CONTINOUS DURATION:CONSTANT PAIN IS INCREASED BY:ACTIVITIES, PROLONGED STANDING, OTHERS WALKING PAIN IS DECREASED BY:OTHERS RESTING AND HEAT AND ICE NURSING NOTE: -. PAIN CENTER INTAKE QUESTIONS: DO YOU HAVE A HISTORY OF MRSA? :NO DO YOU TAKE A BLOOD THINNERS? :YES ELMIRON DO YOU HAVE ANY BLEEDING DISORDERS? :NO ANY NEW NUMBNESS OR WEAKNESS IN YOUR LEGS OR ARMS? :NO ANY PACEMAKER,DEFIBRILLATOR, OR DORSAL COLUMN STIMULATOR? :NO DO YOU HAVE ANY RASHES OR OPEN SORES? :NO ARE YOU ALLERGIC TO IV DYE? :NO ARE YOU DIABETIC? :NO ANY NEW PROBLEMS WITH YOUR MEDICATIONS? :NO HAVE YOU RECEIVED A VACCINE IN THE PAST 30 DAYS? :NO DO YOU PLAN TO RECEIVE A VACCINE IN THE NEXT 21 DAYS? :NO DO YOU NEED ANY PRESCRIPTION? :NO DO YOU TAKE ANY IMMUNOSUPPRESSIVE MEDICATIONS? :YES LEFLUNOMIDE AND ENBREL SURECLICK IS THERE A CHANCE YOU COULD BE ? :NO ARE YOU BREAST FEEDING? :NO CURRENT MEDICATIONS TAKING VITAMIN D 2000 UNIT CAPSULE 1 TABLET ORALLY ONCE A DAY TAKING CANE . MISCELLANEOUS QUAD CANE _ QD R27 TAKING CALCIUM 600 + D 600-400 MG-UNIT TABLET 1 TABLET ORALLY ONCE A DAY TAKING ELMIRON 100 MG CAPSULE 1 CAPSULE ON AN EMPTY STOMACH 1 TABLET THREE A DAY TAKING LEFLUNOMIDE 20 MG TABLET 1 TABLET ORALLY ONCE A DAY TAKING ENBREL SURECLICK 50 MG/ML SOLUTION AUTO-INJECTOR DIRECTED SUBCUTANEOUS ONCE A WEEK TAKING CYANOCOBALAMIN 500 MCG TABLET 1 TABLET ORALLY 1 EVERY 5 DAYS TAKING CARAFATE 1 GM TABLET 1 TABLET ON AN EMPTY STOMACH ORALLY AC TID TAKING ATORVASTATIN CALCIUM 20 MG TABLET 1 TABLET ORALLY ONCE A DAY TAKING FISH OIL 1000 MG CAPSULE 1 CAPSULE ORALLY ONCE A DAY TAKING ESCITALOPRAM OXALATE 10 MG TABLET 15MG 1.5 TABLET ORALLY ONCE A DAY TAKING ESOMEPRAZOLE MAGNESIUM 40 MG CAPSULE DELAYED RELEASE 1 CAPSULE ORALLY AC BID TAKING CARISOPRODOL 350 MG TABLET 1 TABLET NEEDED ORALLY TID PRN, MDD 3 TAKING HYDROCODONE-ACETAMINOPHEN 5-325 MG TABLET 1 TABLET NEEDED ORALLY TID PRN MDD = 3 MEDICATION LIST REVIEWED AND RECONCILED WITH THE PATIENT PAST MEDICAL HISTORY RA/OSTEOARTHRITIS/FIBROMYALGIA NICOTINE ADDICTION-08/2011 FEV1 2.5L (101%)/RATIO 97%-1 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 GERD/DYSPEPSIA-06/2016 NORMAL EGD/COLON/SB CAPSULE-R HYPERLIPIDEMIA 2B ENDOMETRIOSIS 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 SPENCER 2008 FOLLOWS WITH WOMAN TO WOMAN HISTORY OF TUBULAR ADENOMA-NORMAL COLONOSCOPY APRIL 2009 NORMAL COLONOSCOPY C - RANDOM BIOPSIES-[place] COLONOSCOPY 07/18/16 REINDL CERVICAL DJD STATUS POST MULTILEVEL FUSION-01/2010 MRI STABLE ACDF C BASELINE DJD ATROPHIC VAGINITIS OSTEOPENIA VITAMIN D DEFICIENCY CHRONIC SINUSITIS / NONE LATELY RECURRENT UTI / YEARS AGO CHRONIC DIARRHEA STATUS POST LAPAROSCOPIC CHOLECYSTECTOMY JULY 2009//[id number] CHRONIC DRY EYES MEMORY LOSS 2 INSOMNIA, WORK STRESS-12/2011 NORMAL MRI BRAIN S AND NORMAL WORKUP LUMBAR DJD-L2/3 BULGE C L IF HNP C L L2 COMPRESSION, L3/4 SEVERE CCS C B L3 COMPRESSION BY 03/2017 MRI LONG-TERM DISABILITY-TAKEN OOW 08/05/13 [address] BARAJAS, 01/2014 FILLED OUT LTD PAPERWORK FOR GUARDIAN-PATIENT DEFERRED WCE INSOMNIA, COOMORBID ANXIETY OCULAR SURFACE DISEASE ALLERGIES METHOTREXATE (ANTI-RHEUMATIC): MIGRANES - SIDE EFFECTS CYMBALTA: RACING PLUSE, SHAKES - ALLERGY WELLBUTRIN: PALPITATIONS, SEVERE - ALLERGY SULFA (FOR ALLERGY USE ONLY): NAUSEA/VOMITING - ALLERGY LYRICA: PALPITATIONS - ALLERGY CELEXA: PALPITATIONS - SIDE EFFECTS ORENCIA: ANAPHYLAXIS - ALLERGY TOPICAL ALOE VERA: SEVERE ITCHING CANNOT TOLERATE ASA BASED PRODUCTS/ NSAIDS: HX STOMACH BLEED - CONTRAINDICATION SURGICAL HISTORY LAPAROSCOPY X2 CHRISTINE BTL 1982 TVH [address] SPENCER 2008 VAGINAL CUFF BX. IRMA CHANDLER NP 03/07 CHOLECYSTECTOMY 06/09 ACDF-C4-T1 10/06 R BREAST [id number] 09/2010 ABOVE L CTR- FISH 10/27/14 L4-L5 FUSION/LAMINECTOMY 09/2013 NORMAL EGD/COLON/SB CAPSULE-R 06/2016 FUSION C5 C6 1999 HYSTERECTOMY 1988 BENIGN MOLE REMOVAL 2018 SOCIAL HISTORY GENERAL: TOBACCO USE ARE YOU A:CURRENT SMOKER ARE YOU INTERESTED IN QUITTING?THINKING ABOUT QUITTING COUNSELED THE PATIENT ON SMOKING CESSATION, EDUCATION [id number]/30/2021 HOW MANY CIGARETTES A DAY DO YOU SMOKE?5 OR LESS HOW SOON AFTER YOU WAKE UP DO YOU SMOKE YOUR FIRST CIGARETTE?AFTER 60 MIN HOW OFTEN DO YOU SMOKE CIGARETTES?EVERY DAY PATIENT COUNSELED ON THE DANGERS OF TOBACCO USE AND URGED TO QUIT:05/26/2020 VAPORNO E-CIGARETTENO LATEX QUESTIONNAIRE LATEX ALLERGY : HAVE YOU EVER DEVELOPED ANY TYPE OF REACTION AFTER HANDLING LATEX PRODUCTS SUCH RUBBER GLOVES, CONDOMS, DIAPHRAGMS, BALLOONS, SOCKS, OR UNDERWEAR?NO LATEX ALLERGY : HAVE YOU EVER DEVELOPED ANY TYPE OF REACTION DURING OR AFTER DENTAL APPOINTMENT, VAGINAL/RECTAL EXAMINATION, SURGICAL PROCEDURE, OR ANY OTHER EXPOSURE?NO LATEX RISK : HAVE YOU EVER HAD ANY DIFFICULTY BREATHING OR HIVES AFTER EATING OR HANDLING ANY FRUITS, OR VEGETABLES; SUCH KIWI, BANANAS, STONE FRUITS, OR CHESTNUTSNO LATEX RISK : DO YOU HAVE A PREVIOUS PERSONAL HISTORY OF MORE THAN NINE SURGERIES, SPINA BIFIDA, OR REPEATED CATHERIZATIONS? YES LATEX RISK : ARE YOU FREQUENTLY EXPOSED TO LATEX PRODUCTS IN YOUR OCCUPATION?NO DATE ASKED : 07/27/2020 ALCOHOL USE: NO, ONCE EVERY 4 MONTH. ALCOHOL SCREENING DID YOU HAVE A DRINK CONTAINING ALCOHOL IN THE PAST YEAR?YES HOW OFTEN DID YOU HAVE A DRINK CONTAINING ALCOHOL IN THE PAST YEAR?MONTHLY OR LESS (1 POINT) POINTS1 INTERPRETATIONNEGATIVE RECREATIONAL DRUG USE DRUG USE?NO CAFFEINE CAFFEINE USE?YES 2-3 DAILY SEXUAL HX HAD SEX IN THE LAST 12 MONTHS (VAGINAL, ORAL, OR ANAL)?NO HAVE YOU EVER HAD AN STD?NO HIV / HEP-C SCREENING HIV TEST OFFERED TO PATIENT:YES DATE OFFERED:06/28/2017 TEST ACCEPTED:NO HEP-C TEST OFFERED TO PATIENT:YES DATE OFFERED:06/28/2017 REASON:PATIENT DECLINED TEST ACCEPTED:NO REASON:PATIENT DECLINED [employer] [id number] NONE NO SCIENTOLOGIST BELIEFS THAT WOULD IMPACT HEALTH CARE. LANGUAGE LANGUAGES SPOKEN:[place] EDUCATION LEVEL OF EDUCATION:HIGH SCHOOL GED LEARNING BARRIERS / SPECIAL NEEDS CHANGE FROM LAST VISIT?NO BARRIERS TO LEARNING?NO HEARING IMPAIRED?NO TINITUS VISION IMPAIRED?YES :CORRECTIVE LENSES COGNITIVELY IMPAIRED?NO READINESS TO LEARN?YES LEARNING PREFERENCES?NO LEARNING CAPABILITIES PRESENT?YES EMOTIONAL BARRIERS?NO SPECIAL DEVICES?YES :CANE NEEDED [employer] DEVELOPER NEEDED?NO DOMESTIC VIOLENCE DO YOU FEEL SAFE IN YOUR ENVIRONMENT?YES OCCUPATION: DISABLED. DIET: AVOIDS GREASY, FRIED FOODS, DAIRY.TRIES TO EAT SMALLER PORTIONS. EXERCISE: LOWER BACK EXERCISES, WALKS TOLERATED. MARITAL STATUS: .. OTHERS AT HOME: DAUGHTER. - PFS REFERRAL NEEDED?NO CLERGY REFERRAL NEEDED?NO PUBLIC HEALTH REFERRAL NEEDED?NO HAS THE PATIENT BEEN EDUCATED REGARDING HIS/HER PLAN OF CARE?YES HAS THE PATIENT BEEN EDUCATED REGARDING PAIN, THE RISK FOR PAIN, THE IMPORTANCE OF EFFECTIVE PAIN MANAGEMENT, AND THE PAIN ASSESSMENT PROCESS?YES ADVANCE DIRECTIVE ADVANCE DIRECTIVE DISCUSSED WITH PATIENT:YES PT STATES SHE HAS A HEALTH CARE PROXY-RAH ROSARIO [phone] HOSPITALIZATION/MAJOR DIAGNOSTIC PROCEDURE SURGICAL RELATED REVIEW OF SYSTEMS CONSTITUTIONAL: ANY RECENT FEVER NO . CHILLS NO . WEIGHT CHANGE OF UNKNOWN REASONS NO . GASTROENTEROLOGY: NEW UNEXPLAINABLE CHANGES IN BOWEL CONTROL NO . CONSTIPATION NO . GENITOURINARY: ANY NEW CHANGE IN BLADDER CONTROL? NO . NEUROLOGY: NEW ONSET DIZZINESS OR NEUROLOGICAL CHANGES NOT MENTIONED NO . NEW NUMBNESS OR PAIN PATTERNS NOT MENTIONED AND PERTINENT TO TODAY'S VISIT NO . CARDIOLOGY: NEW CHEST PRESSURE NO . PATIENT DENIES NO . RESPIRATORY: UNEXPLAINABLE COUGH NO . NEW SHORTNESS OF BREATH NO . VITAL SIGNS WT 125 LBS, HT 64 IN, BMI 21.45 INDEX, BP 126/55 MM HG, HR 85 /MIN, RR 18 /MIN, TEMP 98.3 F, OXYGEN SAT % 96%, SAFE IN ENV? (Y/N) YEST.CARYN CORLEY. EXAMINATION GENERAL EXAMINATION: GENERAL AWAKE,ALERT ,PLEASANT . PSYCH AFFECT NORMAL . LUNGS: LUNG LINDSEY ARE CLEAR TO AUSCULTATION BILATERALLY. GOOD MOVEMENT OF AIR . HEART: S1, S2 IN A REGULAR RATE AND RHYTHM. NO SIGNIFICANT MURMURS, RUBS OR GALLOPS NOTED . MUSCULOSKELETAL: MUSCLE STRENGTH TESTING 5/5 BILATERAL LOWER EXTREMITIES. LUMBAR: PALPATION: + FOR PAIN OVER L/S SPINE. + FOR PAIN OVER L/S PARASPINALS WELL-HEALED SURGICAL SCAR L/S AXIS. DIAGNOSTIC TESTS REVIEWEDMRI L/S SPINE . 06/2019. ASSESSMENTS SPONDYLOSIS WITHOUT MYELOPATHY OR RADICULOPATHY, LUMBAR REGION - M47.816 (PRIMARY) OTHER CHRONIC PAIN - G89.29 POST LAMINECTOMY SYNDROME - M96.1 TREATMENT SPONDYLOSIS WITHOUT MYELOPATHY OR RADICULOPATHY, LUMBAR REGION NOTES: BILATERAL DIAGNOSTIC LUMBAR FACET BLOCK L4-5,L5-S1 PRINTED AND REVIEWED PRE PROCEDURE WITH PATIENT EZEKIEL CORLEY. OTHER CHRONIC PAIN PAIN PROCEDURE LOGDATE OF PROCEDURE1PROCEDURE:BILATERAL DIAGNOSTIC LUMBAR FACET BLOCK #1 L4-L5,L5-M5VWHCWR OF PRE SEDATE0/0RESULT:GREATER THAN 80% REDUCTION IN PAIN FOR SEVERAL HOURS POSTPROCEDURESLUIS SANTOS 07/28/2020 5:14:14 PM > ANDREA, CAN YOU PLEASE PUT THE PROCEDURE RESULTS IN THIS PROCEDURE LOG? THANKS. PROCEDURE CODES FA211 ESTABILISHED PATIENT [facility] FACILITY CHARGE DISPOSITION & COMMUNICATION FOLLOW UP POST PROCEDURE (REASON: BILATERAL DIAGNOSTIC LUMBAR FACET BLOCK L4-5,L5-S1) ELECTRONICALLY SIGNED BY CARIDAD HENLEY ON 07/30/2020 AT 12:37 PM EDT DISCLAIMER : THIS IS A VISIT SUMMARY EXTRACTED FROM THE [employer] CHART. IT IS NOT A COPY OF THE [employer] PROGRESS NOTE. ZINA
--- NOTE | 2020-07-31 07:29 | ECWPNPC ---
PATIENT NAME: LOGAN CRAVEN : 1960 GENDER: FEMALE VISIT DATE: 07/27/2020 DISCHARGE DATE: 07/27/20 1058 VISIT LOCKED DATE TIME: PHYSICIAN: ANDREA ELIAS PHYSICIAN PAGER NO: ACTIVE RESOURCE: ANDREA ELIAS REASON FOR APPOINTMENT 1. POST BILATERAL DIAGNOSTIC LUMBAR FACET BLOCK #1 L4-L5, L5-S1 HISTORY OF PRESENT ILLNESS GENERAL: HERE FOR POST PROCEDURE FOLLOW-UP. HAD BILATERAL L4-5, L5-S1 LUMBAR DIAGNOSTIC FACET BLOCK ON 07/12/2020. HOURLY DIARY IS REVIEWED AND SHOWS GREATER THAN 80% REDUCTION IN PAIN FOR SEVERAL DAYS. PAIN IS BEGINNING TO RETURN TO BASELINE. DISCUSSED DIAGNOSTIC TESTING #2 AND PROCEEDING WITH RADIOFREQUENCY.-. FALL RISK SCREENING: SCREENING : NO FALLS REPORTED IN THE LAST YEAR. PAIN SCREENING: PATIENT HAS A COMPLAINT OF ACUTE OR CHRONIC PAIN :YES LOCATION OF PAIN:LOW BACK INTENSITY OF PAIN (SCALE OF 1 TO 10):4 WHAT DOES YOUR PAIN FEEL LIKE:CONTINOUS DURATION:CONSTANT PAIN IS INCREASED BY:ACTIVITIES, PROLONGED STANDING, OTHERS WALKING PAIN IS DECREASED BY:OTHERS RESTING AND HEAT AND ICE NURSING NOTE: -. PAIN CENTER INTAKE QUESTIONS: DO YOU HAVE A HISTORY OF MRSA? :NO DO YOU TAKE A BLOOD THINNERS? :YES ELMIRON DO YOU HAVE ANY BLEEDING DISORDERS? :NO ANY NEW NUMBNESS OR WEAKNESS IN YOUR LEGS OR ARMS? :NO ANY PACEMAKER,DEFIBRILLATOR, OR DORSAL COLUMN STIMULATOR? :NO DO YOU HAVE ANY RASHES OR OPEN SORES? :NO ARE YOU ALLERGIC TO IV DYE? :NO ARE YOU DIABETIC? :NO ANY NEW PROBLEMS WITH YOUR MEDICATIONS? :NO HAVE YOU RECEIVED A VACCINE IN THE PAST 30 DAYS? :NO DO YOU PLAN TO RECEIVE A VACCINE IN THE NEXT 21 DAYS? :NO DO YOU NEED ANY PRESCRIPTION? :NO DO YOU TAKE ANY IMMUNOSUPPRESSIVE MEDICATIONS? :YES LEFLUNOMIDE AND ENBREL SURECLICK IS THERE A CHANCE YOU COULD BE ? :NO ARE YOU BREAST FEEDING? :NO CURRENT MEDICATIONS TAKING VITAMIN D 2000 UNIT CAPSULE 1 TABLET ORALLY ONCE A DAY TAKING CANE . MISCELLANEOUS QUAD CANE _ QD R27 TAKING CALCIUM 600 + D 600-400 MG-UNIT TABLET 1 TABLET ORALLY ONCE A DAY TAKING ELMIRON 100 MG CAPSULE 1 CAPSULE ON AN EMPTY STOMACH 1 TABLET THREE A DAY TAKING LEFLUNOMIDE 20 MG TABLET 1 TABLET ORALLY ONCE A DAY TAKING ENBREL SURECLICK 50 MG/ML SOLUTION AUTO-INJECTOR DIRECTED SUBCUTANEOUS ONCE A WEEK TAKING CYANOCOBALAMIN 500 MCG TABLET 1 TABLET ORALLY 1 EVERY 5 DAYS TAKING CARAFATE 1 GM TABLET 1 TABLET ON AN EMPTY STOMACH ORALLY AC TID TAKING ATORVASTATIN CALCIUM 20 MG TABLET 1 TABLET ORALLY ONCE A DAY TAKING FISH OIL 1000 MG CAPSULE 1 CAPSULE ORALLY ONCE A DAY TAKING ESCITALOPRAM OXALATE 10 MG TABLET 15MG 1.5 TABLET ORALLY ONCE A DAY TAKING ESOMEPRAZOLE MAGNESIUM 40 MG CAPSULE DELAYED RELEASE 1 CAPSULE ORALLY AC BID TAKING CARISOPRODOL 350 MG TABLET 1 TABLET NEEDED ORALLY TID PRN, MDD 3 TAKING HYDROCODONE-ACETAMINOPHEN 5-325 MG TABLET 1 TABLET NEEDED ORALLY TID PRN MDD = 3 MEDICATION LIST REVIEWED AND RECONCILED WITH THE PATIENT PAST MEDICAL HISTORY RA/OSTEOARTHRITIS/FIBROMYALGIA NICOTINE ADDICTION-08/2011 FEV1 2.5L (101%)/RATIO 97%-1 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 GERD/DYSPEPSIA-06/2016 NORMAL EGD/COLON/SB CAPSULE-R HYPERLIPIDEMIA 2B ENDOMETRIOSIS 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 SPENCER 2008 FOLLOWS WITH WOMAN TO WOMAN HISTORY OF TUBULAR ADENOMA-NORMAL COLONOSCOPY APRIL 2009 NORMAL COLONOSCOPY C - RANDOM BIOPSIES-[place] COLONOSCOPY 07/18/16 REINDL CERVICAL DJD STATUS POST MULTILEVEL FUSION-01/2010 MRI STABLE ACDF C BASELINE DJD ATROPHIC VAGINITIS OSTEOPENIA VITAMIN D DEFICIENCY CHRONIC SINUSITIS / NONE LATELY RECURRENT UTI / YEARS AGO CHRONIC DIARRHEA STATUS POST LAPAROSCOPIC CHOLECYSTECTOMY JULY 2009//[id number] CHRONIC DRY EYES MEMORY LOSS 2 INSOMNIA, WORK STRESS-12/2011 NORMAL MRI BRAIN S AND NORMAL WORKUP LUMBAR DJD-L2/3 BULGE C L IF HNP C L L2 COMPRESSION, L3/4 SEVERE CCS C B L3 COMPRESSION BY 03/2017 MRI LONG-TERM DISABILITY-TAKEN OOW 08/05/[address] BARAJAS, 01/2014 FILLED OUT LTD PAPERWORK FOR GUARDIAN-PATIENT DEFERRED WCE INSOMNIA, COOMORBID ANXIETY OCULAR SURFACE DISEASE ALLERGIES METHOTREXATE (ANTI-RHEUMATIC): MIGRANES - SIDE EFFECTS CYMBALTA: RACING PLUSE, SHAKES - ALLERGY WELLBUTRIN: PALPITATIONS, SEVERE - ALLERGY SULFA (FOR ALLERGY USE ONLY): NAUSEA/VOMITING - ALLERGY LYRICA: PALPITATIONS - ALLERGY CELEXA: PALPITATIONS - SIDE EFFECTS ORENCIA: ANAPHYLAXIS - ALLERGY TOPICAL ALOE VERA: SEVERE ITCHING CANNOT TOLERATE ASA BASED PRODUCTS/ NSAIDS: HX STOMACH BLEED - CONTRAINDICATION SURGICAL HISTORY LAPAROSCOPY X2 CHRISTINE BTL 1982 TVH [address] SPENCER 2008 VAGINAL CUFF BX. IRMA CHANDLER NP 03/07 CHOLECYSTECTOMY 06/09 ACDF-C4-T1 10/06 R BREAST [id number] 09/2010 ABOVE L CTR- FISH 10/27/14 L4-L5 FUSION/LAMINECTOMY 09/2013 NORMAL EGD/COLON/SB CAPSULE-R 06/2016 FUSION C5 C6 1999 HYSTERECTOMY 1988 BENIGN MOLE REMOVAL 2018 SOCIAL HISTORY GENERAL: TOBACCO USE ARE YOU A:CURRENT SMOKER ARE YOU INTERESTED IN QUITTING?THINKING ABOUT QUITTING COUNSELED THE PATIENT ON SMOKING CESSATION, EDUCATION [id number]/30/2021 HOW MANY CIGARETTES A DAY DO YOU SMOKE?5 OR LESS HOW SOON AFTER YOU WAKE UP DO YOU SMOKE YOUR FIRST CIGARETTE?AFTER 60 MIN HOW OFTEN DO YOU SMOKE CIGARETTES?EVERY DAY PATIENT COUNSELED ON THE DANGERS OF TOBACCO USE AND URGED TO QUIT:05/26/2020 VAPORNO E-CIGARETTENO LATEX QUESTIONNAIRE LATEX ALLERGY : HAVE YOU EVER DEVELOPED ANY TYPE OF REACTION AFTER HANDLING LATEX PRODUCTS SUCH RUBBER GLOVES, CONDOMS, DIAPHRAGMS, BALLOONS, SOCKS, OR UNDERWEAR?NO LATEX ALLERGY : HAVE YOU EVER DEVELOPED ANY TYPE OF REACTION DURING OR AFTER DENTAL APPOINTMENT, VAGINAL/RECTAL EXAMINATION, SURGICAL PROCEDURE, OR ANY OTHER EXPOSURE?NO LATEX RISK : HAVE YOU EVER HAD ANY DIFFICULTY BREATHING OR HIVES AFTER EATING OR HANDLING ANY FRUITS, OR VEGETABLES; SUCH KIWI, BANANAS, STONE FRUITS, OR CHESTNUTSNO LATEX RISK : DO YOU HAVE A PREVIOUS PERSONAL HISTORY OF MORE THAN NINE SURGERIES, SPINA BIFIDA, OR REPEATED CATHERIZATIONS? YES LATEX RISK : ARE YOU FREQUENTLY EXPOSED TO LATEX PRODUCTS IN YOUR OCCUPATION?NO DATE ASKED : 07/27/2020 ALCOHOL USE: NO, ONCE EVERY 4 MONTH. ALCOHOL SCREENING DID YOU HAVE A DRINK CONTAINING ALCOHOL IN THE PAST YEAR?YES HOW OFTEN DID YOU HAVE A DRINK CONTAINING ALCOHOL IN THE PAST YEAR?MONTHLY OR LESS (1 POINT) POINTS1 INTERPRETATIONNEGATIVE RECREATIONAL DRUG USE DRUG USE?NO CAFFEINE CAFFEINE USE?YES 2-3 DAILY SEXUAL HX HAD SEX IN THE LAST 12 MONTHS (VAGINAL, ORAL, OR ANAL)?NO HAVE YOU EVER HAD AN STD?NO HIV / HEP-C SCREENING HIV TEST OFFERED TO PATIENT:YES DATE OFFERED:06/28/2017 TEST ACCEPTED:NO HEP-C TEST OFFERED TO PATIENT:YES DATE OFFERED:06/28/2017 REASON:PATIENT DECLINED TEST ACCEPTED:NO REASON:PATIENT DECLINED SIKHISM [id number] NONE NO MORAVIAN BELIEFS THAT WOULD IMPACT HEALTH CARE. LANGUAGE LANGUAGES SPOKEN:PORTUGUESE EDUCATION LEVEL OF EDUCATION:HIGH SCHOOL GED LEARNING BARRIERS / SPECIAL NEEDS CHANGE FROM LAST VISIT?NO BARRIERS TO LEARNING?NO HEARING IMPAIRED?NO TINITUS VISION IMPAIRED?YES :CORRECTIVE LENSES COGNITIVELY IMPAIRED?NO READINESS TO LEARN?YES LEARNING PREFERENCES?NO LEARNING CAPABILITIES PRESENT?YES EMOTIONAL BARRIERS?NO SPECIAL DEVICES?YES :CANE NEEDED HOUSEHOLD MANAGER NEEDED?NO DOMESTIC VIOLENCE DO YOU FEEL SAFE IN YOUR ENVIRONMENT?YES OCCUPATION: DISABLED. DIET: AVOIDS GREASY, FRIED FOODS, DAIRY.TRIES TO EAT SMALLER PORTIONS. EXERCISE: LOWER BACK EXERCISES, WALKS TOLERATED. MARITAL STATUS: .. OTHERS AT HOME: DAUGHTER. - PFS REFERRAL NEEDED?NO CLERGY REFERRAL NEEDED?NO PUBLIC HEALTH REFERRAL NEEDED?NO HAS THE PATIENT BEEN EDUCATED REGARDING HIS/HER PLAN OF CARE?YES HAS THE PATIENT BEEN EDUCATED REGARDING PAIN, THE RISK FOR PAIN, THE IMPORTANCE OF EFFECTIVE PAIN MANAGEMENT, AND THE PAIN ASSESSMENT PROCESS?YES ADVANCE DIRECTIVE ADVANCE DIRECTIVE DISCUSSED WITH PATIENT:YES PT STATES SHE HAS A HEALTH CARE PROXY-RAH ROSARIO [phone] HOSPITALIZATION/MAJOR DIAGNOSTIC PROCEDURE SURGICAL RELATED REVIEW OF SYSTEMS CONSTITUTIONAL: ANY RECENT FEVER NO . CHILLS NO . WEIGHT CHANGE OF UNKNOWN REASONS NO . GASTROENTEROLOGY: NEW UNEXPLAINABLE CHANGES IN BOWEL CONTROL NO . CONSTIPATION NO . GENITOURINARY: ANY NEW CHANGE IN BLADDER CONTROL? NO . NEUROLOGY: NEW ONSET DIZZINESS OR NEUROLOGICAL CHANGES NOT MENTIONED NO . NEW NUMBNESS OR PAIN PATTERNS NOT MENTIONED AND PERTINENT TO TODAY'S VISIT NO . CARDIOLOGY: NEW CHEST PRESSURE NO . PATIENT DENIES NO . RESPIRATORY: UNEXPLAINABLE COUGH NO . NEW SHORTNESS OF BREATH NO . VITAL SIGNS WT 125 LBS, HT 64 IN, BMI 21.45 INDEX, BP 126/55 MM HG, HR 85 /MIN, RR 18 /MIN, TEMP 98.3 F, OXYGEN SAT % 96%, SAFE IN ENV? (Y/N) YEST.CARYN CORLEY. EXAMINATION GENERAL EXAMINATION: GENERAL AWAKE,ALERT ,PLEASANT . PSYCH AFFECT NORMAL . LUNGS: LUNG LINDSEY ARE CLEAR TO AUSCULTATION BILATERALLY. GOOD MOVEMENT OF AIR . HEART: S1, S2 IN A REGULAR RATE AND RHYTHM. NO SIGNIFICANT MURMURS, RUBS OR GALLOPS NOTED . MUSCULOSKELETAL: MUSCLE STRENGTH TESTING 5/5 BILATERAL LOWER EXTREMITIES. LUMBAR: PALPATION: + FOR PAIN OVER L/S SPINE. + FOR PAIN OVER L/S PARASPINALS WELL-HEALED SURGICAL SCAR L/S AXIS. DIAGNOSTIC TESTS REVIEWEDMRI L/S SPINE . 06/2019. ASSESSMENTS SPONDYLOSIS WITHOUT MYELOPATHY OR RADICULOPATHY, LUMBAR REGION - M47.816 (PRIMARY) OTHER CHRONIC PAIN - G89.29 POST LAMINECTOMY SYNDROME - M96.1 TREATMENT SPONDYLOSIS WITHOUT MYELOPATHY OR RADICULOPATHY, LUMBAR REGION NOTES: BILATERAL DIAGNOSTIC LUMBAR FACET BLOCK L4-5,L5-S1 PRINTED AND REVIEWED PRE PROCEDURE WITH PATIENT EZEKIEL CORLEY. OTHER CHRONIC PAIN PAIN PROCEDURE LOGDATE OF PROCEDURE1PROCEDURE:BILATERAL DIAGNOSTIC LUMBAR FACET BLOCK #1 L4-L5,L5-U2DIVYIN OF PRE SEDATE0/0RESULT:GREATER THAN 80% REDUCTION IN PAIN FOR SEVERAL HOURS POSTPROCEDURESLUIS SANTOS 07/28/2020 5:14:14 PM > ANDREA, CAN YOU PLEASE PUT THE PROCEDURE RESULTS IN THIS PROCEDURE LOG? THANKS. PROCEDURE CODES FA211 ESTABILISHED PATIENT [facility] FACILITY CHARGE DISPOSITION & COMMUNICATION FOLLOW UP POST PROCEDURE (REASON: BILATERAL DIAGNOSTIC LUMBAR FACET BLOCK L4-5,L5-S1) ELECTRONICALLY SIGNED BY CARIDAD HENLEY ON 07/30/2020 AT 12:37 PM EDT DISCLAIMER : THIS IS A VISIT SUMMARY EXTRACTED FROM THE [employer] CHART. IT IS NOT A COPY OF THE [employer] PROGRESS NOTE. ZINA
--- NOTE | 2020-07-31 07:30 | ECWPNPC ---
PATIENT NAME: LOGAN CRAVEN : 1960 GENDER: FEMALE VISIT DATE: 07/27/2020 DISCHARGE DATE: 07/27/20 1058 VISIT LOCKED DATE TIME: PHYSICIAN: ANDREA ELIAS PHYSICIAN PAGER NO: ACTIVE RESOURCE: ANDREA ELIAS REASON FOR APPOINTMENT 1. POST BILATERAL DIAGNOSTIC LUMBAR FACET BLOCK #1 L4-L5, L5-S1 HISTORY OF PRESENT ILLNESS GENERAL: HERE FOR POST PROCEDURE FOLLOW-UP. HAD BILATERAL L4-5, L5-S1 LUMBAR DIAGNOSTIC FACET BLOCK ON 07/12/2020. HOURLY DIARY IS REVIEWED AND SHOWS GREATER THAN 80% REDUCTION IN PAIN FOR SEVERAL DAYS. PAIN IS BEGINNING TO RETURN TO BASELINE. DISCUSSED DIAGNOSTIC TESTING #2 AND PROCEEDING WITH RADIOFREQUENCY.-. FALL RISK SCREENING: SCREENING : NO FALLS REPORTED IN THE LAST YEAR. PAIN SCREENING: PATIENT HAS A COMPLAINT OF ACUTE OR CHRONIC PAIN :YES LOCATION OF PAIN:LOW BACK INTENSITY OF PAIN (SCALE OF 1 TO 10):4 WHAT DOES YOUR PAIN FEEL LIKE:CONTINOUS DURATION:CONSTANT PAIN IS INCREASED BY:ACTIVITIES, PROLONGED STANDING, OTHERS WALKING PAIN IS DECREASED BY:OTHERS RESTING AND HEAT AND ICE NURSING NOTE: -. PAIN CENTER INTAKE QUESTIONS: DO YOU HAVE A HISTORY OF MRSA? :NO DO YOU TAKE A BLOOD THINNERS? :YES ELMIRON DO YOU HAVE ANY BLEEDING DISORDERS? :NO ANY NEW NUMBNESS OR WEAKNESS IN YOUR LEGS OR ARMS? :NO ANY PACEMAKER,DEFIBRILLATOR, OR DORSAL COLUMN STIMULATOR? :NO DO YOU HAVE ANY RASHES OR OPEN SORES? :NO ARE YOU ALLERGIC TO IV DYE? :NO ARE YOU DIABETIC? :NO ANY NEW PROBLEMS WITH YOUR MEDICATIONS? :NO HAVE YOU RECEIVED A VACCINE IN THE PAST 30 DAYS? :NO DO YOU PLAN TO RECEIVE A VACCINE IN THE NEXT 21 DAYS? :NO DO YOU NEED ANY PRESCRIPTION? :NO DO YOU TAKE ANY IMMUNOSUPPRESSIVE MEDICATIONS? :YES LEFLUNOMIDE AND ENBREL SURECLICK IS THERE A CHANCE YOU COULD BE ? :NO ARE YOU BREAST FEEDING? :NO CURRENT MEDICATIONS TAKING VITAMIN D 2000 UNIT CAPSULE 1 TABLET ORALLY ONCE A DAY TAKING CANE . MISCELLANEOUS QUAD CANE _ QD R27 TAKING CALCIUM 600 + D 600-400 MG-UNIT TABLET 1 TABLET ORALLY ONCE A DAY TAKING ELMIRON 100 MG CAPSULE 1 CAPSULE ON AN EMPTY STOMACH 1 TABLET THREE A DAY TAKING LEFLUNOMIDE 20 MG TABLET 1 TABLET ORALLY ONCE A DAY TAKING ENBREL SURECLICK 50 MG/ML SOLUTION AUTO-INJECTOR DIRECTED SUBCUTANEOUS ONCE A WEEK TAKING CYANOCOBALAMIN 500 MCG TABLET 1 TABLET ORALLY 1 EVERY 5 DAYS TAKING CARAFATE 1 GM TABLET 1 TABLET ON AN EMPTY STOMACH ORALLY AC TID TAKING ATORVASTATIN CALCIUM 20 MG TABLET 1 TABLET ORALLY ONCE A DAY TAKING FISH OIL 1000 MG CAPSULE 1 CAPSULE ORALLY ONCE A DAY TAKING ESCITALOPRAM OXALATE 10 MG TABLET 15MG 1.5 TABLET ORALLY ONCE A DAY TAKING ESOMEPRAZOLE MAGNESIUM 40 MG CAPSULE DELAYED RELEASE 1 CAPSULE ORALLY AC BID TAKING CARISOPRODOL 350 MG TABLET 1 TABLET NEEDED ORALLY TID PRN, MDD 3 TAKING HYDROCODONE-ACETAMINOPHEN 5-325 MG TABLET 1 TABLET NEEDED ORALLY TID PRN MDD = 3 MEDICATION LIST REVIEWED AND RECONCILED WITH THE PATIENT PAST MEDICAL HISTORY RA/OSTEOARTHRITIS/FIBROMYALGIA NICOTINE ADDICTION-08/2011 FEV1 2.5L (101%)/RATIO 97%-1 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 GERD/DYSPEPSIA-06/2016 NORMAL EGD/COLON/SB CAPSULE-R HYPERLIPIDEMIA 2B ENDOMETRIOSIS 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 SPENCER 2008 FOLLOWS WITH WOMAN TO WOMAN HISTORY OF TUBULAR ADENOMA-NORMAL COLONOSCOPY APRIL 2009 NORMAL COLONOSCOPY C - RANDOM BIOPSIES-[place] COLONOSCOPY 07/18/16 REINDL CERVICAL DJD STATUS POST MULTILEVEL FUSION-01/2010 MRI STABLE ACDF C BASELINE DJD ATROPHIC VAGINITIS OSTEOPENIA VITAMIN D DEFICIENCY CHRONIC SINUSITIS / NONE LATELY RECURRENT UTI / YEARS AGO CHRONIC DIARRHEA STATUS POST LAPAROSCOPIC CHOLECYSTECTOMY JULY 2009//[id number] CHRONIC DRY EYES MEMORY LOSS 2 INSOMNIA, WORK STRESS-12/2011 NORMAL MRI BRAIN S AND NORMAL WORKUP LUMBAR DJD-L2/3 BULGE C L IF HNP C L L2 COMPRESSION, L3/4 SEVERE CCS C B L3 COMPRESSION BY 03/2017 MRI LONG-TERM DISABILITY-TAKEN OOW 08/05/[address] BARAJAS, 01/2014 FILLED OUT LTD PAPERWORK FOR GUARDIAN-PATIENT DEFERRED WCE INSOMNIA, COOMORBID ANXIETY OCULAR SURFACE DISEASE ALLERGIES METHOTREXATE (ANTI-RHEUMATIC): MIGRANES - SIDE EFFECTS CYMBALTA: RACING PLUSE, SHAKES - ALLERGY WELLBUTRIN: PALPITATIONS, SEVERE - ALLERGY SULFA (FOR ALLERGY USE ONLY): NAUSEA/VOMITING - ALLERGY LYRICA: PALPITATIONS - ALLERGY CELEXA: PALPITATIONS - SIDE EFFECTS ORENCIA: ANAPHYLAXIS - ALLERGY TOPICAL ALOE VERA: SEVERE ITCHING CANNOT TOLERATE ASA BASED PRODUCTS/ NSAIDS: HX STOMACH BLEED - CONTRAINDICATION SURGICAL HISTORY LAPAROSCOPY X2 CHRISTINE BTL 1982 TVH [address] SPENCER 2008 VAGINAL CUFF BX. IRMA CHANDLER NP 03/07 CHOLECYSTECTOMY 06/09 ACDF-C4-T1 10/06 R BREAST [id number] 09/2010 ABOVE L CTR- FISH 10/27/14 L4-L5 FUSION/LAMINECTOMY 09/2013 NORMAL EGD/COLON/SB CAPSULE-R 06/2016 FUSION C5 C6 1999 HYSTERECTOMY 1988 BENIGN MOLE REMOVAL 2018 SOCIAL HISTORY GENERAL: TOBACCO USE ARE YOU A:CURRENT SMOKER ARE YOU INTERESTED IN QUITTING?THINKING ABOUT QUITTING COUNSELED THE PATIENT ON SMOKING CESSATION, EDUCATION [id number]/30/2021 HOW MANY CIGARETTES A DAY DO YOU SMOKE?5 OR LESS HOW SOON AFTER YOU WAKE UP DO YOU SMOKE YOUR FIRST CIGARETTE?AFTER 60 MIN HOW OFTEN DO YOU SMOKE CIGARETTES?EVERY DAY PATIENT COUNSELED ON THE DANGERS OF TOBACCO USE AND URGED TO QUIT:05/26/2020 VAPORNO E-CIGARETTENO LATEX QUESTIONNAIRE LATEX ALLERGY : HAVE YOU EVER DEVELOPED ANY TYPE OF REACTION AFTER HANDLING LATEX PRODUCTS SUCH RUBBER GLOVES, CONDOMS, DIAPHRAGMS, BALLOONS, SOCKS, OR UNDERWEAR?NO LATEX ALLERGY : HAVE YOU EVER DEVELOPED ANY TYPE OF REACTION DURING OR AFTER DENTAL APPOINTMENT, VAGINAL/RECTAL EXAMINATION, SURGICAL PROCEDURE, OR ANY OTHER EXPOSURE?NO LATEX RISK : HAVE YOU EVER HAD ANY DIFFICULTY BREATHING OR HIVES AFTER EATING OR HANDLING ANY FRUITS, OR VEGETABLES; SUCH KIWI, BANANAS, STONE FRUITS, OR CHESTNUTSNO LATEX RISK : DO YOU HAVE A PREVIOUS PERSONAL HISTORY OF MORE THAN NINE SURGERIES, SPINA BIFIDA, OR REPEATED CATHERIZATIONS? YES LATEX RISK : ARE YOU FREQUENTLY EXPOSED TO LATEX PRODUCTS IN YOUR OCCUPATION?NO DATE ASKED : 07/27/2020 ALCOHOL USE: NO, ONCE EVERY 4 MONTH. ALCOHOL SCREENING DID YOU HAVE A DRINK CONTAINING ALCOHOL IN THE PAST YEAR?YES HOW OFTEN DID YOU HAVE A DRINK CONTAINING ALCOHOL IN THE PAST YEAR?MONTHLY OR LESS (1 POINT) POINTS1 INTERPRETATIONNEGATIVE RECREATIONAL DRUG USE DRUG USE?NO CAFFEINE CAFFEINE USE?YES 2-3 DAILY SEXUAL HX HAD SEX IN THE LAST 12 MONTHS (VAGINAL, ORAL, OR ANAL)?NO HAVE YOU EVER HAD AN STD?NO HIV / HEP-C SCREENING HIV TEST OFFERED TO PATIENT:YES DATE OFFERED:06/28/2017 TEST ACCEPTED:NO HEP-C TEST OFFERED TO PATIENT:YES DATE OFFERED:06/28/2017 REASON:PATIENT DECLINED TEST ACCEPTED:NO REASON:PATIENT DECLINED JUDAISM [id number] NONE NO MORMONISM BELIEFS THAT WOULD IMPACT HEALTH CARE. LANGUAGE LANGUAGES SPOKEN:ARABIC EDUCATION LEVEL OF EDUCATION:HIGH SCHOOL GED LEARNING BARRIERS / SPECIAL NEEDS CHANGE FROM LAST VISIT?NO BARRIERS TO LEARNING?NO HEARING IMPAIRED?NO TINITUS VISION IMPAIRED?YES :CORRECTIVE LENSES COGNITIVELY IMPAIRED?NO READINESS TO LEARN?YES LEARNING PREFERENCES?NO LEARNING CAPABILITIES PRESENT?YES EMOTIONAL BARRIERS?NO SPECIAL DEVICES?YES :CANE NEEDED DIRECTOR OF LABORATORY OPERATIONS NEEDED?NO DOMESTIC VIOLENCE DO YOU FEEL SAFE IN YOUR ENVIRONMENT?YES OCCUPATION: DISABLED. DIET: AVOIDS GREASY, FRIED FOODS, DAIRY.TRIES TO EAT SMALLER PORTIONS. EXERCISE: LOWER BACK EXERCISES, WALKS TOLERATED. MARITAL STATUS: .. OTHERS AT HOME: DAUGHTER. - PFS REFERRAL NEEDED?NO CLERGY REFERRAL NEEDED?NO PUBLIC HEALTH REFERRAL NEEDED?NO HAS THE PATIENT BEEN EDUCATED REGARDING HIS/HER PLAN OF CARE?YES HAS THE PATIENT BEEN EDUCATED REGARDING PAIN, THE RISK FOR PAIN, THE IMPORTANCE OF EFFECTIVE PAIN MANAGEMENT, AND THE PAIN ASSESSMENT PROCESS?YES ADVANCE DIRECTIVE ADVANCE DIRECTIVE DISCUSSED WITH PATIENT:YES PT STATES SHE HAS A HEALTH CARE PROXY-RAH ROSARIO [phone] HOSPITALIZATION/MAJOR DIAGNOSTIC PROCEDURE SURGICAL RELATED REVIEW OF SYSTEMS CONSTITUTIONAL: ANY RECENT FEVER NO . CHILLS NO . WEIGHT CHANGE OF UNKNOWN REASONS NO . GASTROENTEROLOGY: NEW UNEXPLAINABLE CHANGES IN BOWEL CONTROL NO . CONSTIPATION NO . GENITOURINARY: ANY NEW CHANGE IN BLADDER CONTROL? NO . NEUROLOGY: NEW ONSET DIZZINESS OR NEUROLOGICAL CHANGES NOT MENTIONED NO . NEW NUMBNESS OR PAIN PATTERNS NOT MENTIONED AND PERTINENT TO TODAY'S VISIT NO . CARDIOLOGY: NEW CHEST PRESSURE NO . PATIENT DENIES NO . RESPIRATORY: UNEXPLAINABLE COUGH NO . NEW SHORTNESS OF BREATH NO . VITAL SIGNS WT 125 LBS, HT 64 IN, BMI 21.45 INDEX, BP 126/55 MM HG, HR 85 /MIN, RR 18 /MIN, TEMP 98.3 F, OXYGEN SAT % 96%, SAFE IN ENV? (Y/N) YEST.CARYN CORLEY. EXAMINATION GENERAL EXAMINATION: GENERAL AWAKE,ALERT ,PLEASANT . PSYCH AFFECT NORMAL . LUNGS: LUNG LINDSEY ARE CLEAR TO AUSCULTATION BILATERALLY. GOOD MOVEMENT OF AIR . HEART: S1, S2 IN A REGULAR RATE AND RHYTHM. NO SIGNIFICANT MURMURS, RUBS OR GALLOPS NOTED . MUSCULOSKELETAL: MUSCLE STRENGTH TESTING 5/5 BILATERAL LOWER EXTREMITIES. LUMBAR: PALPATION: + FOR PAIN OVER L/S SPINE. + FOR PAIN OVER L/S PARASPINALS WELL-HEALED SURGICAL SCAR L/S AXIS. DIAGNOSTIC TESTS REVIEWEDMRI L/S SPINE . 06/2019. ASSESSMENTS SPONDYLOSIS WITHOUT MYELOPATHY OR RADICULOPATHY, LUMBAR REGION - M47.816 (PRIMARY) OTHER CHRONIC PAIN - G89.29 POST LAMINECTOMY SYNDROME - M96.1 TREATMENT SPONDYLOSIS WITHOUT MYELOPATHY OR RADICULOPATHY, LUMBAR REGION NOTES: BILATERAL DIAGNOSTIC LUMBAR FACET BLOCK L4-5,L5-S1 PRINTED AND REVIEWED PRE PROCEDURE WITH PATIENT EZEKIEL CORLEY. OTHER CHRONIC PAIN PAIN PROCEDURE LOGDATE OF PROCEDURE1PROCEDURE:BILATERAL DIAGNOSTIC LUMBAR FACET BLOCK #1 L4-L5,L5-I1AWWQZE OF PRE SEDATE0/0RESULT:GREATER THAN 80% REDUCTION IN PAIN FOR SEVERAL HOURS POSTPROCEDURESLUIS SANTOS 07/28/2020 5:14:14 PM > ANDREA, CAN YOU PLEASE PUT THE PROCEDURE RESULTS IN THIS PROCEDURE LOG? THANKS. PROCEDURE CODES FA211 ESTABILISHED PATIENT [facility] FACILITY CHARGE DISPOSITION & COMMUNICATION FOLLOW UP POST PROCEDURE (REASON: BILATERAL DIAGNOSTIC LUMBAR FACET BLOCK L4-5,L5-S1) ELECTRONICALLY SIGNED BY CARIDAD HENLEY ON 07/30/2020 AT 12:37 PM EDT DISCLAIMER : THIS IS A VISIT SUMMARY EXTRACTED FROM THE [employer] CHART. IT IS NOT A COPY OF THE [employer] PROGRESS NOTE. ZINA
--- NOTE | 2020-07-31 07:32 | ECWPNPC ---
PATIENT NAME: LOGAN CRAVEN : 1960 GENDER: FEMALE VISIT DATE: 07/27/2020 DISCHARGE DATE: 07/27/20 1058 VISIT LOCKED DATE TIME: PHYSICIAN: ANDREA ELIAS PHYSICIAN PAGER NO: ACTIVE RESOURCE: ANDREA ELIAS REASON FOR APPOINTMENT 1. POST BILATERAL DIAGNOSTIC LUMBAR FACET BLOCK #1 L4-L5, L5-S1 HISTORY OF PRESENT ILLNESS GENERAL: HERE FOR POST PROCEDURE FOLLOW-UP. HAD BILATERAL L4-5, L5-S1 LUMBAR DIAGNOSTIC FACET BLOCK ON 07/12/2020. HOURLY DIARY IS REVIEWED AND SHOWS GREATER THAN 80% REDUCTION IN PAIN FOR SEVERAL DAYS. PAIN IS BEGINNING TO RETURN TO BASELINE. DISCUSSED DIAGNOSTIC TESTING #2 AND PROCEEDING WITH RADIOFREQUENCY.-. FALL RISK SCREENING: SCREENING : NO FALLS REPORTED IN THE LAST YEAR. PAIN SCREENING: PATIENT HAS A COMPLAINT OF ACUTE OR CHRONIC PAIN :YES LOCATION OF PAIN:LOW BACK INTENSITY OF PAIN (SCALE OF 1 TO 10):4 WHAT DOES YOUR PAIN FEEL LIKE:CONTINOUS DURATION:CONSTANT PAIN IS INCREASED BY:ACTIVITIES, PROLONGED STANDING, OTHERS WALKING PAIN IS DECREASED BY:OTHERS RESTING AND HEAT AND ICE NURSING NOTE: -. PAIN CENTER INTAKE QUESTIONS: DO YOU HAVE A HISTORY OF MRSA? :NO DO YOU TAKE A BLOOD THINNERS? :YES ELMIRON DO YOU HAVE ANY BLEEDING DISORDERS? :NO ANY NEW NUMBNESS OR WEAKNESS IN YOUR LEGS OR ARMS? :NO ANY PACEMAKER,DEFIBRILLATOR, OR DORSAL COLUMN STIMULATOR? :NO DO YOU HAVE ANY RASHES OR OPEN SORES? :NO ARE YOU ALLERGIC TO IV DYE? :NO ARE YOU DIABETIC? :NO ANY NEW PROBLEMS WITH YOUR MEDICATIONS? :NO HAVE YOU RECEIVED A VACCINE IN THE PAST 30 DAYS? :NO DO YOU PLAN TO RECEIVE A VACCINE IN THE NEXT 21 DAYS? :NO DO YOU NEED ANY PRESCRIPTION? :NO DO YOU TAKE ANY IMMUNOSUPPRESSIVE MEDICATIONS? :YES LEFLUNOMIDE AND ENBREL SURECLICK IS THERE A CHANCE YOU COULD BE ? :NO ARE YOU BREAST FEEDING? :NO CURRENT MEDICATIONS TAKING VITAMIN D 2000 UNIT CAPSULE 1 TABLET ORALLY ONCE A DAY TAKING CANE . MISCELLANEOUS QUAD CANE _ QD R27 TAKING CALCIUM 600 + D 600-400 MG-UNIT TABLET 1 TABLET ORALLY ONCE A DAY TAKING ELMIRON 100 MG CAPSULE 1 CAPSULE ON AN EMPTY STOMACH 1 TABLET THREE A DAY TAKING LEFLUNOMIDE 20 MG TABLET 1 TABLET ORALLY ONCE A DAY TAKING ENBREL SURECLICK 50 MG/ML SOLUTION AUTO-INJECTOR DIRECTED SUBCUTANEOUS ONCE A WEEK TAKING CYANOCOBALAMIN 500 MCG TABLET 1 TABLET ORALLY 1 EVERY 5 DAYS TAKING CARAFATE 1 GM TABLET 1 TABLET ON AN EMPTY STOMACH ORALLY AC TID TAKING ATORVASTATIN CALCIUM 20 MG TABLET 1 TABLET ORALLY ONCE A DAY TAKING FISH OIL 1000 MG CAPSULE 1 CAPSULE ORALLY ONCE A DAY TAKING ESCITALOPRAM OXALATE 10 MG TABLET 15MG 1.5 TABLET ORALLY ONCE A DAY TAKING ESOMEPRAZOLE MAGNESIUM 40 MG CAPSULE DELAYED RELEASE 1 CAPSULE ORALLY AC BID TAKING CARISOPRODOL 350 MG TABLET 1 TABLET NEEDED ORALLY TID PRN, MDD 3 TAKING HYDROCODONE-ACETAMINOPHEN 5-325 MG TABLET 1 TABLET NEEDED ORALLY TID PRN MDD = 3 MEDICATION LIST REVIEWED AND RECONCILED WITH THE PATIENT PAST MEDICAL HISTORY RA/OSTEOARTHRITIS/FIBROMYALGIA NICOTINE ADDICTION-08/2011 FEV1 2.5L (101%)/RATIO 97%-1 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 GERD/DYSPEPSIA-06/2016 NORMAL EGD/COLON/SB CAPSULE-R HYPERLIPIDEMIA 2B ENDOMETRIOSIS 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 SPENCER 2008 FOLLOWS WITH WOMAN TO WOMAN HISTORY OF TUBULAR ADENOMA-NORMAL COLONOSCOPY APRIL 2009 NORMAL COLONOSCOPY C - RANDOM BIOPSIES-[place] COLONOSCOPY 07/18/16 REINDL CERVICAL DJD STATUS POST MULTILEVEL FUSION-01/2010 MRI STABLE ACDF C BASELINE DJD ATROPHIC VAGINITIS OSTEOPENIA VITAMIN D DEFICIENCY CHRONIC SINUSITIS / NONE LATELY RECURRENT UTI / YEARS AGO CHRONIC DIARRHEA STATUS POST LAPAROSCOPIC CHOLECYSTECTOMY JULY 2009//[id number] CHRONIC DRY EYES MEMORY LOSS 2 INSOMNIA, WORK STRESS-12/2011 NORMAL MRI BRAIN S AND NORMAL WORKUP LUMBAR DJD-L2/3 BULGE C L IF HNP C L L2 COMPRESSION, L3/4 SEVERE CCS C B L3 COMPRESSION BY 03/2017 MRI LONG-TERM DISABILITY-TAKEN OOW 08/05/[address] BARAJAS, 01/2014 FILLED OUT LTD PAPERWORK FOR GUARDIAN-PATIENT DEFERRED WCE INSOMNIA, COOMORBID ANXIETY OCULAR SURFACE DISEASE ALLERGIES METHOTREXATE (ANTI-RHEUMATIC): MIGRANES - SIDE EFFECTS CYMBALTA: RACING PLUSE, SHAKES - ALLERGY WELLBUTRIN: PALPITATIONS, SEVERE - ALLERGY SULFA (FOR ALLERGY USE ONLY): NAUSEA/VOMITING - ALLERGY LYRICA: PALPITATIONS - ALLERGY CELEXA: PALPITATIONS - SIDE EFFECTS ORENCIA: ANAPHYLAXIS - ALLERGY TOPICAL ALOE VERA: SEVERE ITCHING CANNOT TOLERATE ASA BASED PRODUCTS/ NSAIDS: HX STOMACH BLEED - CONTRAINDICATION SURGICAL HISTORY LAPAROSCOPY X2 CHRISTINE BTL 1982 TVH [address] SPENCER 2008 VAGINAL CUFF BX. IRMA CHANDLER NP 03/07 CHOLECYSTECTOMY 06/09 ACDF-C4-T1 10/06 R BREAST REGSOW-[id number]-[id number] 09/2010 ABOVE L CTR- FISH 10/27/14 L4-L5 FUSION/LAMINECTOMY 09/2013 NORMAL EGD/COLON/SB CAPSULE-R 06/2016 FUSION C5 C6 1999 HYSTERECTOMY 1988 BENIGN MOLE REMOVAL 2018 SOCIAL HISTORY GENERAL: TOBACCO USE ARE YOU A:CURRENT SMOKER ARE YOU INTERESTED IN QUITTING?THINKING ABOUT QUITTING COUNSELED THE PATIENT ON SMOKING CESSATION, EDUCATION [id number]/30/2021 HOW MANY CIGARETTES A DAY DO YOU SMOKE?5 OR LESS HOW SOON AFTER YOU WAKE UP DO YOU SMOKE YOUR FIRST CIGARETTE?AFTER 60 MIN HOW OFTEN DO YOU SMOKE CIGARETTES?EVERY DAY PATIENT COUNSELED ON THE DANGERS OF TOBACCO USE AND URGED TO QUIT:05/26/2020 VAPORNO E-CIGARETTENO LATEX QUESTIONNAIRE LATEX ALLERGY : HAVE YOU EVER DEVELOPED ANY TYPE OF REACTION AFTER HANDLING LATEX PRODUCTS SUCH RUBBER GLOVES, CONDOMS, DIAPHRAGMS, BALLOONS, SOCKS, OR UNDERWEAR?NO LATEX ALLERGY : HAVE YOU EVER DEVELOPED ANY TYPE OF REACTION DURING OR AFTER DENTAL APPOINTMENT, VAGINAL/RECTAL EXAMINATION, SURGICAL PROCEDURE, OR ANY OTHER EXPOSURE?NO LATEX RISK : HAVE YOU EVER HAD ANY DIFFICULTY BREATHING OR HIVES AFTER EATING OR HANDLING ANY FRUITS, OR VEGETABLES; SUCH KIWI, BANANAS, STONE FRUITS, OR CHESTNUTSNO LATEX RISK : DO YOU HAVE A PREVIOUS PERSONAL HISTORY OF MORE THAN NINE SURGERIES, SPINA BIFIDA, OR REPEATED CATHERIZATIONS? YES LATEX RISK : ARE YOU FREQUENTLY EXPOSED TO LATEX PRODUCTS IN YOUR OCCUPATION?NO DATE ASKED : 07/27/2020 ALCOHOL USE: NO, ONCE EVERY 4 MONTH. ALCOHOL SCREENING DID YOU HAVE A DRINK CONTAINING ALCOHOL IN THE PAST YEAR?YES HOW OFTEN DID YOU HAVE A DRINK CONTAINING ALCOHOL IN THE PAST YEAR?MONTHLY OR LESS (1 POINT) POINTS1 INTERPRETATIONNEGATIVE RECREATIONAL DRUG USE DRUG USE?NO CAFFEINE CAFFEINE USE?YES 2-3 DAILY SEXUAL HX HAD SEX IN THE LAST 12 MONTHS (VAGINAL, ORAL, OR ANAL)?NO HAVE YOU EVER HAD AN STD?NO HIV / HEP-C SCREENING HIV TEST OFFERED TO PATIENT:YES DATE OFFERED:06/28/2017 TEST ACCEPTED:NO HEP-C TEST OFFERED TO PATIENT:YES DATE OFFERED:06/28/2017 REASON:PATIENT DECLINED TEST ACCEPTED:NO REASON:PATIENT DECLINED UATSDIN [id number] NONE NO VOODOO BELIEFS THAT WOULD IMPACT HEALTH CARE. LANGUAGE LANGUAGES SPOKEN:[place] EDUCATION LEVEL OF EDUCATION:HIGH SCHOOL GED LEARNING BARRIERS / SPECIAL NEEDS CHANGE FROM LAST VISIT?NO BARRIERS TO LEARNING?NO HEARING IMPAIRED?NO TINITUS VISION IMPAIRED?YES :CORRECTIVE LENSES COGNITIVELY IMPAIRED?NO READINESS TO LEARN?YES LEARNING PREFERENCES?NO LEARNING CAPABILITIES PRESENT?YES EMOTIONAL BARRIERS?NO SPECIAL DEVICES?YES :CANE NEEDED SCRUBBER SYSTEM ATTENDANT NEEDED?NO DOMESTIC VIOLENCE DO YOU FEEL SAFE IN YOUR ENVIRONMENT?YES OCCUPATION: DISABLED. DIET: AVOIDS GREASY, FRIED FOODS, DAIRY.TRIES TO EAT SMALLER PORTIONS. EXERCISE: LOWER BACK EXERCISES, WALKS TOLERATED. MARITAL STATUS: .. OTHERS AT HOME: DAUGHTER. - PFS REFERRAL NEEDED?NO CLERGY REFERRAL NEEDED?NO PUBLIC HEALTH REFERRAL NEEDED?NO HAS THE PATIENT BEEN EDUCATED REGARDING HIS/HER PLAN OF CARE?YES HAS THE PATIENT BEEN EDUCATED REGARDING PAIN, THE RISK FOR PAIN, THE IMPORTANCE OF EFFECTIVE PAIN MANAGEMENT, AND THE PAIN ASSESSMENT PROCESS?YES ADVANCE DIRECTIVE ADVANCE DIRECTIVE DISCUSSED WITH PATIENT:YES PT STATES SHE HAS A HEALTH CARE PROXY-RAH ROSARIO [phone] HOSPITALIZATION/MAJOR DIAGNOSTIC PROCEDURE SURGICAL RELATED REVIEW OF SYSTEMS CONSTITUTIONAL: ANY RECENT FEVER NO . CHILLS NO . WEIGHT CHANGE OF UNKNOWN REASONS NO . GASTROENTEROLOGY: NEW UNEXPLAINABLE CHANGES IN BOWEL CONTROL NO . CONSTIPATION NO . GENITOURINARY: ANY NEW CHANGE IN BLADDER CONTROL? NO . NEUROLOGY: NEW ONSET DIZZINESS OR NEUROLOGICAL CHANGES NOT MENTIONED NO . NEW NUMBNESS OR PAIN PATTERNS NOT MENTIONED AND PERTINENT TO TODAY'S VISIT NO . CARDIOLOGY: NEW CHEST PRESSURE NO . PATIENT DENIES NO . RESPIRATORY: UNEXPLAINABLE COUGH NO . NEW SHORTNESS OF BREATH NO . VITAL SIGNS WT 125 LBS, HT 64 IN, BMI 21.45 INDEX, BP 126/55 MM HG, HR 85 /MIN, RR 18 /MIN, TEMP 98.3 F, OXYGEN SAT % 96%, SAFE IN ENV? (Y/N) YEST.CARYN CORLEY. EXAMINATION GENERAL EXAMINATION: GENERAL AWAKE,ALERT ,PLEASANT . PSYCH AFFECT NORMAL . LUNGS: LUNG LINDSEY ARE CLEAR TO AUSCULTATION BILATERALLY. GOOD MOVEMENT OF AIR . HEART: S1, S2 IN A REGULAR RATE AND RHYTHM. NO SIGNIFICANT MURMURS, RUBS OR GALLOPS NOTED . MUSCULOSKELETAL: MUSCLE STRENGTH TESTING 5/5 BILATERAL LOWER EXTREMITIES. LUMBAR: PALPATION: + FOR PAIN OVER L/S SPINE. + FOR PAIN OVER L/S PARASPINALS WELL-HEALED SURGICAL SCAR L/S AXIS. DIAGNOSTIC TESTS REVIEWEDMRI L/S SPINE . 06/2019. ASSESSMENTS SPONDYLOSIS WITHOUT MYELOPATHY OR RADICULOPATHY, LUMBAR REGION - M47.816 (PRIMARY) OTHER CHRONIC PAIN - G89.29 POST LAMINECTOMY SYNDROME - M96.1 TREATMENT SPONDYLOSIS WITHOUT MYELOPATHY OR RADICULOPATHY, LUMBAR REGION NOTES: BILATERAL DIAGNOSTIC LUMBAR FACET BLOCK L4-5,L5-S1 PRINTED AND REVIEWED PRE PROCEDURE WITH PATIENT EZEKIEL CORLEY. OTHER CHRONIC PAIN PAIN PROCEDURE LOGDATE OF PROCEDURE1PROCEDURE:BILATERAL DIAGNOSTIC LUMBAR FACET BLOCK #1 L4-L5,L5-D4ATYNTA OF PRE SEDATE0/0RESULT:GREATER THAN 80% REDUCTION IN PAIN FOR SEVERAL HOURS POSTPROCEDURESLUIS SANTOS 07/28/2020 5:14:14 PM > ANDREA, CAN YOU PLEASE PUT THE PROCEDURE RESULTS IN THIS PROCEDURE LOG? THANKS. PROCEDURE CODES FA211 ESTABILISHED PATIENT [facility] FACILITY CHARGE DISPOSITION & COMMUNICATION FOLLOW UP POST PROCEDURE (REASON: BILATERAL DIAGNOSTIC LUMBAR FACET BLOCK L4-5,L5-S1) ELECTRONICALLY SIGNED BY CARIDAD HENLEY ON 07/30/2020 AT 12:37 PM EDT DISCLAIMER : THIS IS A VISIT SUMMARY EXTRACTED FROM THE [employer] CHART. IT IS NOT A COPY OF THE [employer] PROGRESS NOTE. ZINA
--- NOTE | 2020-07-31 07:34 | ECWPNPC ---
PATIENT NAME: LOGAN CRAVEN : 1960 GENDER: FEMALE VISIT DATE: 07/27/2020 DISCHARGE DATE: 07/27/20 1058 VISIT LOCKED DATE TIME: PHYSICIAN: ANDREA ELIAS PHYSICIAN PAGER NO: ACTIVE RESOURCE: ANDREA ELIAS REASON FOR APPOINTMENT 1. POST BILATERAL DIAGNOSTIC LUMBAR FACET BLOCK #1 L4-L5, L5-S1 HISTORY OF PRESENT ILLNESS GENERAL: HERE FOR POST PROCEDURE FOLLOW-UP. HAD BILATERAL L4-5, L5-S1 LUMBAR DIAGNOSTIC FACET BLOCK ON 07/12/2020. HOURLY DIARY IS REVIEWED AND SHOWS GREATER THAN 80% REDUCTION IN PAIN FOR SEVERAL DAYS. PAIN IS BEGINNING TO RETURN TO BASELINE. DISCUSSED DIAGNOSTIC TESTING #2 AND PROCEEDING WITH RADIOFREQUENCY.-. FALL RISK SCREENING: SCREENING : NO FALLS REPORTED IN THE LAST YEAR. PAIN SCREENING: PATIENT HAS A COMPLAINT OF ACUTE OR CHRONIC PAIN :YES LOCATION OF PAIN:LOW BACK INTENSITY OF PAIN (SCALE OF 1 TO 10):4 WHAT DOES YOUR PAIN FEEL LIKE:CONTINOUS DURATION:CONSTANT PAIN IS INCREASED BY:ACTIVITIES, PROLONGED STANDING, OTHERS WALKING PAIN IS DECREASED BY:OTHERS RESTING AND HEAT AND ICE NURSING NOTE: -. PAIN CENTER INTAKE QUESTIONS: DO YOU HAVE A HISTORY OF MRSA? :NO DO YOU TAKE A BLOOD THINNERS? :YES ELMIRON DO YOU HAVE ANY BLEEDING DISORDERS? :NO ANY NEW NUMBNESS OR WEAKNESS IN YOUR LEGS OR ARMS? :NO ANY PACEMAKER,DEFIBRILLATOR, OR DORSAL COLUMN STIMULATOR? :NO DO YOU HAVE ANY RASHES OR OPEN SORES? :NO ARE YOU ALLERGIC TO IV DYE? :NO ARE YOU DIABETIC? :NO ANY NEW PROBLEMS WITH YOUR MEDICATIONS? :NO HAVE YOU RECEIVED A VACCINE IN THE PAST 30 DAYS? :NO DO YOU PLAN TO RECEIVE A VACCINE IN THE NEXT 21 DAYS? :NO DO YOU NEED ANY PRESCRIPTION? :NO DO YOU TAKE ANY IMMUNOSUPPRESSIVE MEDICATIONS? :YES LEFLUNOMIDE AND ENBREL SURECLICK IS THERE A CHANCE YOU COULD BE ? :NO ARE YOU BREAST FEEDING? :NO CURRENT MEDICATIONS TAKING VITAMIN D 2000 UNIT CAPSULE 1 TABLET ORALLY ONCE A DAY TAKING CANE . MISCELLANEOUS QUAD CANE _ QD R27 TAKING CALCIUM 600 + D 600-400 MG-UNIT TABLET 1 TABLET ORALLY ONCE A DAY TAKING ELMIRON 100 MG CAPSULE 1 CAPSULE ON AN EMPTY STOMACH 1 TABLET THREE A DAY TAKING LEFLUNOMIDE 20 MG TABLET 1 TABLET ORALLY ONCE A DAY TAKING ENBREL SURECLICK 50 MG/ML SOLUTION AUTO-INJECTOR DIRECTED SUBCUTANEOUS ONCE A WEEK TAKING CYANOCOBALAMIN 500 MCG TABLET 1 TABLET ORALLY 1 EVERY 5 DAYS TAKING CARAFATE 1 GM TABLET 1 TABLET ON AN EMPTY STOMACH ORALLY AC TID TAKING ATORVASTATIN CALCIUM 20 MG TABLET 1 TABLET ORALLY ONCE A DAY TAKING FISH OIL 1000 MG CAPSULE 1 CAPSULE ORALLY ONCE A DAY TAKING ESCITALOPRAM OXALATE 10 MG TABLET 15MG 1.5 TABLET ORALLY ONCE A DAY TAKING ESOMEPRAZOLE MAGNESIUM 40 MG CAPSULE DELAYED RELEASE 1 CAPSULE ORALLY AC BID TAKING CARISOPRODOL 350 MG TABLET 1 TABLET NEEDED ORALLY TID PRN, MDD 3 TAKING HYDROCODONE-ACETAMINOPHEN 5-325 MG TABLET 1 TABLET NEEDED ORALLY TID PRN MDD = 3 MEDICATION LIST REVIEWED AND RECONCILED WITH THE PATIENT PAST MEDICAL HISTORY RA/OSTEOARTHRITIS/FIBROMYALGIA NICOTINE ADDICTION-08/2011 FEV1 2.5L (101%)/RATIO 97%-1 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 GERD/DYSPEPSIA-06/2016 NORMAL EGD/COLON/SB CAPSULE-R HYPERLIPIDEMIA 2B ENDOMETRIOSIS 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 SPENCER 2008 FOLLOWS WITH WOMAN TO WOMAN HISTORY OF TUBULAR ADENOMA-NORMAL COLONOSCOPY APRIL 2009 NORMAL COLONOSCOPY C - RANDOM BIOPSIES-[place] COLONOSCOPY 07/18/16 REINDL CERVICAL DJD STATUS POST MULTILEVEL FUSION-01/2010 MRI STABLE ACDF C BASELINE DJD ATROPHIC VAGINITIS OSTEOPENIA VITAMIN D DEFICIENCY CHRONIC SINUSITIS / NONE LATELY RECURRENT UTI / YEARS AGO CHRONIC DIARRHEA STATUS POST LAPAROSCOPIC CHOLECYSTECTOMY JULY 2009//[id number] CHRONIC DRY EYES MEMORY LOSS 2 INSOMNIA, WORK STRESS-12/2011 NORMAL MRI BRAIN S AND NORMAL WORKUP LUMBAR DJD-L2/3 BULGE C L IF HNP C L L2 COMPRESSION, L3/4 SEVERE CCS C B L3 COMPRESSION BY 03/2017 MRI LONG-TERM DISABILITY-TAKEN OOW 08/05/[address] BARAJAS, 01/2014 FILLED OUT LTD PAPERWORK FOR GUARDIAN-PATIENT DEFERRED WCE INSOMNIA, COOMORBID ANXIETY OCULAR SURFACE DISEASE ALLERGIES METHOTREXATE (ANTI-RHEUMATIC): MIGRANES - SIDE EFFECTS CYMBALTA: RACING PLUSE, SHAKES - ALLERGY WELLBUTRIN: PALPITATIONS, SEVERE - ALLERGY SULFA (FOR ALLERGY USE ONLY): NAUSEA/VOMITING - ALLERGY LYRICA: PALPITATIONS - ALLERGY CELEXA: PALPITATIONS - SIDE EFFECTS ORENCIA: ANAPHYLAXIS - ALLERGY TOPICAL ALOE VERA: SEVERE ITCHING CANNOT TOLERATE ASA BASED PRODUCTS/ NSAIDS: HX STOMACH BLEED - CONTRAINDICATION SURGICAL HISTORY LAPAROSCOPY X2 CHRISTINE BTL 1982 TVH [address] SPENCER 2008 VAGINAL CUFF BX. IRMA CHANDLER NP 03/07 CHOLECYSTECTOMY 06/09 ACDF-C4-T1 10/06 R BREAST [id number] 09/2010 ABOVE L CTR- FISH 10/27/14 L4-L5 FUSION/LAMINECTOMY 09/2013 NORMAL EGD/COLON/SB CAPSULE-R 06/2016 FUSION C5 C6 1999 HYSTERECTOMY 1988 BENIGN MOLE REMOVAL 2018 SOCIAL HISTORY GENERAL: TOBACCO USE ARE YOU A:CURRENT SMOKER ARE YOU INTERESTED IN QUITTING?THINKING ABOUT QUITTING COUNSELED THE PATIENT ON SMOKING CESSATION, EDUCATION APREKOCH81/30/2021 HOW MANY CIGARETTES A DAY DO YOU SMOKE?5 OR LESS HOW SOON AFTER YOU WAKE UP DO YOU SMOKE YOUR FIRST CIGARETTE?AFTER 60 MIN HOW OFTEN DO YOU SMOKE CIGARETTES?EVERY DAY PATIENT COUNSELED ON THE DANGERS OF TOBACCO USE AND URGED TO QUIT:05/26/2020 VAPORNO E-CIGARETTENO LATEX QUESTIONNAIRE LATEX ALLERGY : HAVE YOU EVER DEVELOPED ANY TYPE OF REACTION AFTER HANDLING LATEX PRODUCTS SUCH RUBBER GLOVES, CONDOMS, DIAPHRAGMS, BALLOONS, SOCKS, OR UNDERWEAR?NO LATEX ALLERGY : HAVE YOU EVER DEVELOPED ANY TYPE OF REACTION DURING OR AFTER DENTAL APPOINTMENT, VAGINAL/RECTAL EXAMINATION, SURGICAL PROCEDURE, OR ANY OTHER EXPOSURE?NO LATEX RISK : HAVE YOU EVER HAD ANY DIFFICULTY BREATHING OR HIVES AFTER EATING OR HANDLING ANY FRUITS, OR VEGETABLES; SUCH KIWI, BANANAS, STONE FRUITS, OR CHESTNUTSNO LATEX RISK : DO YOU HAVE A PREVIOUS PERSONAL HISTORY OF MORE THAN NINE SURGERIES, SPINA BIFIDA, OR REPEATED CATHERIZATIONS? YES LATEX RISK : ARE YOU FREQUENTLY EXPOSED TO LATEX PRODUCTS IN YOUR OCCUPATION?NO DATE ASKED : 07/27/2020 ALCOHOL USE: NO, ONCE EVERY 4 MONTH. ALCOHOL SCREENING DID YOU HAVE A DRINK CONTAINING ALCOHOL IN THE PAST YEAR?YES HOW OFTEN DID YOU HAVE A DRINK CONTAINING ALCOHOL IN THE PAST YEAR?MONTHLY OR LESS (1 POINT) POINTS1 INTERPRETATIONNEGATIVE RECREATIONAL DRUG USE DRUG USE?NO CAFFEINE CAFFEINE USE?YES 2-3 DAILY SEXUAL HX HAD SEX IN THE LAST 12 MONTHS (VAGINAL, ORAL, OR ANAL)?NO HAVE YOU EVER HAD AN STD?NO HIV / HEP-C SCREENING HIV TEST OFFERED TO PATIENT:YES DATE OFFERED:06/28/2017 TEST ACCEPTED:NO HEP-C TEST OFFERED TO PATIENT:YES DATE OFFERED:06/28/2017 REASON:PATIENT DECLINED TEST ACCEPTED:NO REASON:PATIENT DECLINED [facility] [id number] NONE NO SIKH BELIEFS THAT WOULD IMPACT HEALTH CARE. LANGUAGE LANGUAGES SPOKEN:ARMENIAN EDUCATION LEVEL OF EDUCATION:HIGH SCHOOL GED LEARNING BARRIERS / SPECIAL NEEDS CHANGE FROM LAST VISIT?NO BARRIERS TO LEARNING?NO HEARING IMPAIRED?NO TINITUS VISION IMPAIRED?YES :CORRECTIVE LENSES COGNITIVELY IMPAIRED?NO READINESS TO LEARN?YES LEARNING PREFERENCES?NO LEARNING CAPABILITIES PRESENT?YES EMOTIONAL BARRIERS?NO SPECIAL DEVICES?YES :CANE NEEDED RESPIRATORY SUPPORT TECHNICIAN NEEDED?NO DOMESTIC VIOLENCE DO YOU FEEL SAFE IN YOUR ENVIRONMENT?YES OCCUPATION: DISABLED. DIET: AVOIDS GREASY, FRIED FOODS, DAIRY.TRIES TO EAT SMALLER PORTIONS. EXERCISE: LOWER BACK EXERCISES, WALKS TOLERATED. MARITAL STATUS: .. OTHERS AT HOME: DAUGHTER. - PFS REFERRAL NEEDED?NO CLERGY REFERRAL NEEDED?NO PUBLIC HEALTH REFERRAL NEEDED?NO HAS THE PATIENT BEEN EDUCATED REGARDING HIS/HER PLAN OF CARE?YES HAS THE PATIENT BEEN EDUCATED REGARDING PAIN, THE RISK FOR PAIN, THE IMPORTANCE OF EFFECTIVE PAIN MANAGEMENT, AND THE PAIN ASSESSMENT PROCESS?YES ADVANCE DIRECTIVE ADVANCE DIRECTIVE DISCUSSED WITH PATIENT:YES PT STATES SHE HAS A HEALTH CARE PROXY-RAH ROSARIO [phone] HOSPITALIZATION/MAJOR DIAGNOSTIC PROCEDURE SURGICAL RELATED REVIEW OF SYSTEMS CONSTITUTIONAL: ANY RECENT FEVER NO . CHILLS NO . WEIGHT CHANGE OF UNKNOWN REASONS NO . GASTROENTEROLOGY: NEW UNEXPLAINABLE CHANGES IN BOWEL CONTROL NO . CONSTIPATION NO . GENITOURINARY: ANY NEW CHANGE IN BLADDER CONTROL? NO . NEUROLOGY: NEW ONSET DIZZINESS OR NEUROLOGICAL CHANGES NOT MENTIONED NO . NEW NUMBNESS OR PAIN PATTERNS NOT MENTIONED AND PERTINENT TO TODAY'S VISIT NO . CARDIOLOGY: NEW CHEST PRESSURE NO . PATIENT DENIES NO . RESPIRATORY: UNEXPLAINABLE COUGH NO . NEW SHORTNESS OF BREATH NO . VITAL SIGNS WT 125 LBS, HT 64 IN, BMI 21.45 INDEX, BP 126/55 MM HG, HR 85 /MIN, RR 18 /MIN, TEMP 98.3 F, OXYGEN SAT % 96%, SAFE IN ENV? (Y/N) YEST.CARYN CORLEY. EXAMINATION GENERAL EXAMINATION: GENERAL AWAKE,ALERT ,PLEASANT . PSYCH AFFECT NORMAL . LUNGS: LUNG LINDSEY ARE CLEAR TO AUSCULTATION BILATERALLY. GOOD MOVEMENT OF AIR . HEART: S1, S2 IN A REGULAR RATE AND RHYTHM. NO SIGNIFICANT MURMURS, RUBS OR GALLOPS NOTED . MUSCULOSKELETAL: MUSCLE STRENGTH TESTING 5/5 BILATERAL LOWER EXTREMITIES. LUMBAR: PALPATION: + FOR PAIN OVER L/S SPINE. + FOR PAIN OVER L/S PARASPINALS WELL-HEALED SURGICAL SCAR L/S AXIS. DIAGNOSTIC TESTS REVIEWEDMRI L/S SPINE . 06/2019. ASSESSMENTS SPONDYLOSIS WITHOUT MYELOPATHY OR RADICULOPATHY, LUMBAR REGION - M47.816 (PRIMARY) OTHER CHRONIC PAIN - G89.29 POST LAMINECTOMY SYNDROME - M96.1 TREATMENT SPONDYLOSIS WITHOUT MYELOPATHY OR RADICULOPATHY, LUMBAR REGION NOTES: BILATERAL DIAGNOSTIC LUMBAR FACET BLOCK L4-5,L5-S1 PRINTED AND REVIEWED PRE PROCEDURE WITH PATIENT EZEKIEL CORLEY. OTHER CHRONIC PAIN PAIN PROCEDURE LOGDATE OF PROCEDURE1PROCEDURE:BILATERAL DIAGNOSTIC LUMBAR FACET BLOCK #1 L4-L5,L5-S0GJLSGV OF PRE SEDATE0/0RESULT:GREATER THAN 80% REDUCTION IN PAIN FOR SEVERAL HOURS POSTPROCEDURESLUIS SANTOS 07/28/2020 5:14:14 PM > ANDREA, CAN YOU PLEASE PUT THE PROCEDURE RESULTS IN THIS PROCEDURE LOG? THANKS. PROCEDURE CODES FA211 ESTABILISHED PATIENT [facility] FACILITY CHARGE DISPOSITION & COMMUNICATION FOLLOW UP POST PROCEDURE (REASON: BILATERAL DIAGNOSTIC LUMBAR FACET BLOCK L4-5,L5-S1) ELECTRONICALLY SIGNED BY CARIDAD HENLEY ON 07/30/2020 AT 12:37 PM EDT DISCLAIMER : THIS IS A VISIT SUMMARY EXTRACTED FROM THE [employer] CHART. IT IS NOT A COPY OF THE [employer] PROGRESS NOTE. ZINA
--- NOTE | 2020-07-31 07:36 | ECWPNPC ---
PATIENT NAME: LOGAN CRAVEN : 1960 GENDER: FEMALE VISIT DATE: 07/27/2020 DISCHARGE DATE: 07/27/20 1058 VISIT LOCKED DATE TIME: PHYSICIAN: ANDREA ELIAS PHYSICIAN PAGER NO: ACTIVE RESOURCE: ANDREA ELIAS REASON FOR APPOINTMENT 1. POST BILATERAL DIAGNOSTIC LUMBAR FACET BLOCK #1 L4-L5, L5-S1 HISTORY OF PRESENT ILLNESS GENERAL: HERE FOR POST PROCEDURE FOLLOW-UP. HAD BILATERAL L4-5, L5-S1 LUMBAR DIAGNOSTIC FACET BLOCK ON 07/12/2020. HOURLY DIARY IS REVIEWED AND SHOWS GREATER THAN 80% REDUCTION IN PAIN FOR SEVERAL DAYS. PAIN IS BEGINNING TO RETURN TO BASELINE. DISCUSSED DIAGNOSTIC TESTING #2 AND PROCEEDING WITH RADIOFREQUENCY.-. FALL RISK SCREENING: SCREENING : NO FALLS REPORTED IN THE LAST YEAR. PAIN SCREENING: PATIENT HAS A COMPLAINT OF ACUTE OR CHRONIC PAIN :YES LOCATION OF PAIN:LOW BACK INTENSITY OF PAIN (SCALE OF 1 TO 10):4 WHAT DOES YOUR PAIN FEEL LIKE:CONTINOUS DURATION:CONSTANT PAIN IS INCREASED BY:ACTIVITIES, PROLONGED STANDING, OTHERS WALKING PAIN IS DECREASED BY:OTHERS RESTING AND HEAT AND ICE NURSING NOTE: -. PAIN CENTER INTAKE QUESTIONS: DO YOU HAVE A HISTORY OF MRSA? :NO DO YOU TAKE A BLOOD THINNERS? :YES ELMIRON DO YOU HAVE ANY BLEEDING DISORDERS? :NO ANY NEW NUMBNESS OR WEAKNESS IN YOUR LEGS OR ARMS? :NO ANY PACEMAKER,DEFIBRILLATOR, OR DORSAL COLUMN STIMULATOR? :NO DO YOU HAVE ANY RASHES OR OPEN SORES? :NO ARE YOU ALLERGIC TO IV DYE? :NO ARE YOU DIABETIC? :NO ANY NEW PROBLEMS WITH YOUR MEDICATIONS? :NO HAVE YOU RECEIVED A VACCINE IN THE PAST 30 DAYS? :NO DO YOU PLAN TO RECEIVE A VACCINE IN THE NEXT 21 DAYS? :NO DO YOU NEED ANY PRESCRIPTION? :NO DO YOU TAKE ANY IMMUNOSUPPRESSIVE MEDICATIONS? :YES LEFLUNOMIDE AND ENBREL SURECLICK IS THERE A CHANCE YOU COULD BE ? :NO ARE YOU BREAST FEEDING? :NO CURRENT MEDICATIONS TAKING VITAMIN D 2000 UNIT CAPSULE 1 TABLET ORALLY ONCE A DAY TAKING CANE . MISCELLANEOUS QUAD CANE _ QD R27 TAKING CALCIUM 600 + D 600-400 MG-UNIT TABLET 1 TABLET ORALLY ONCE A DAY TAKING ELMIRON 100 MG CAPSULE 1 CAPSULE ON AN EMPTY STOMACH 1 TABLET THREE A DAY TAKING LEFLUNOMIDE 20 MG TABLET 1 TABLET ORALLY ONCE A DAY TAKING ENBREL SURECLICK 50 MG/ML SOLUTION AUTO-INJECTOR DIRECTED SUBCUTANEOUS ONCE A WEEK TAKING CYANOCOBALAMIN 500 MCG TABLET 1 TABLET ORALLY 1 EVERY 5 DAYS TAKING CARAFATE 1 GM TABLET 1 TABLET ON AN EMPTY STOMACH ORALLY AC TID TAKING ATORVASTATIN CALCIUM 20 MG TABLET 1 TABLET ORALLY ONCE A DAY TAKING FISH OIL 1000 MG CAPSULE 1 CAPSULE ORALLY ONCE A DAY TAKING ESCITALOPRAM OXALATE 10 MG TABLET 15MG 1.5 TABLET ORALLY ONCE A DAY TAKING ESOMEPRAZOLE MAGNESIUM 40 MG CAPSULE DELAYED RELEASE 1 CAPSULE ORALLY AC BID TAKING CARISOPRODOL 350 MG TABLET 1 TABLET NEEDED ORALLY TID PRN, MDD 3 TAKING HYDROCODONE-ACETAMINOPHEN 5-325 MG TABLET 1 TABLET NEEDED ORALLY TID PRN MDD = 3 MEDICATION LIST REVIEWED AND RECONCILED WITH THE PATIENT PAST MEDICAL HISTORY RA/OSTEOARTHRITIS/FIBROMYALGIA NICOTINE ADDICTION-08/2011 FEV1 2.5L (101%)/RATIO 97%-1 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 GERD/DYSPEPSIA-06/2016 NORMAL EGD/COLON/SB CAPSULE-R HYPERLIPIDEMIA 2B ENDOMETRIOSIS 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 SPENCER 2008 FOLLOWS WITH WOMAN TO WOMAN HISTORY OF TUBULAR ADENOMA-NORMAL COLONOSCOPY APRIL 2009 NORMAL COLONOSCOPY C - RANDOM BIOPSIES-[place] COLONOSCOPY 07/18/16 REINDL CERVICAL DJD STATUS POST MULTILEVEL FUSION-01/2010 MRI STABLE ACDF C BASELINE DJD ATROPHIC VAGINITIS OSTEOPENIA VITAMIN D DEFICIENCY CHRONIC SINUSITIS / NONE LATELY RECURRENT UTI / YEARS AGO CHRONIC DIARRHEA STATUS POST LAPAROSCOPIC CHOLECYSTECTOMY JULY 2009//[id number] CHRONIC DRY EYES MEMORY LOSS 2 INSOMNIA, WORK STRESS-12/2011 NORMAL MRI BRAIN S AND NORMAL WORKUP LUMBAR DJD-L2/3 BULGE C L IF HNP C L L2 COMPRESSION, L3/4 SEVERE CCS C B L3 COMPRESSION BY 03/2017 MRI LONG-TERM DISABILITY-TAKEN OOW 08/05/[address] BARAJAS, 01/2014 FILLED OUT LTD PAPERWORK FOR GUARDIAN-PATIENT DEFERRED WCE INSOMNIA, COOMORBID ANXIETY OCULAR SURFACE DISEASE ALLERGIES METHOTREXATE (ANTI-RHEUMATIC): MIGRANES - SIDE EFFECTS CYMBALTA: RACING PLUSE, SHAKES - ALLERGY WELLBUTRIN: PALPITATIONS, SEVERE - ALLERGY SULFA (FOR ALLERGY USE ONLY): NAUSEA/VOMITING - ALLERGY LYRICA: PALPITATIONS - ALLERGY CELEXA: PALPITATIONS - SIDE EFFECTS ORENCIA: ANAPHYLAXIS - ALLERGY TOPICAL ALOE VERA: SEVERE ITCHING CANNOT TOLERATE ASA BASED PRODUCTS/ NSAIDS: HX STOMACH BLEED - CONTRAINDICATION SURGICAL HISTORY LAPAROSCOPY X2 CHRISTINE BTL 1982 TVH [address] SPENCER 2008 VAGINAL CUFF BX. IRMA CHANDLER NP 03/07 CHOLECYSTECTOMY 06/09 ACDF-C4-T1 10/06 R BREAST KLOBOZ-[id number]-PAQNWL 09/2010 ABOVE L CTR- FISH 10/27/14 L4-L5 FUSION/LAMINECTOMY 09/2013 NORMAL EGD/COLON/SB CAPSULE-R 06/2016 FUSION C5 C6 1999 HYSTERECTOMY 1988 BENIGN MOLE REMOVAL 2018 SOCIAL HISTORY GENERAL: TOBACCO USE ARE YOU A:CURRENT SMOKER ARE YOU INTERESTED IN QUITTING?THINKING ABOUT QUITTING COUNSELED THE PATIENT ON SMOKING CESSATION, EDUCATION [id number]/30/2021 HOW MANY CIGARETTES A DAY DO YOU SMOKE?5 OR LESS HOW SOON AFTER YOU WAKE UP DO YOU SMOKE YOUR FIRST CIGARETTE?AFTER 60 MIN HOW OFTEN DO YOU SMOKE CIGARETTES?EVERY DAY PATIENT COUNSELED ON THE DANGERS OF TOBACCO USE AND URGED TO QUIT:05/26/2020 VAPORNO E-CIGARETTENO LATEX QUESTIONNAIRE LATEX ALLERGY : HAVE YOU EVER DEVELOPED ANY TYPE OF REACTION AFTER HANDLING LATEX PRODUCTS SUCH RUBBER GLOVES, CONDOMS, DIAPHRAGMS, BALLOONS, SOCKS, OR UNDERWEAR?NO LATEX ALLERGY : HAVE YOU EVER DEVELOPED ANY TYPE OF REACTION DURING OR AFTER DENTAL APPOINTMENT, VAGINAL/RECTAL EXAMINATION, SURGICAL PROCEDURE, OR ANY OTHER EXPOSURE?NO LATEX RISK : HAVE YOU EVER HAD ANY DIFFICULTY BREATHING OR HIVES AFTER EATING OR HANDLING ANY FRUITS, OR VEGETABLES; SUCH KIWI, BANANAS, STONE FRUITS, OR CHESTNUTSNO LATEX RISK : DO YOU HAVE A PREVIOUS PERSONAL HISTORY OF MORE THAN NINE SURGERIES, SPINA BIFIDA, OR REPEATED CATHERIZATIONS? YES LATEX RISK : ARE YOU FREQUENTLY EXPOSED TO LATEX PRODUCTS IN YOUR OCCUPATION?NO DATE ASKED : 07/27/2020 ALCOHOL USE: NO, ONCE EVERY 4 MONTH. ALCOHOL SCREENING DID YOU HAVE A DRINK CONTAINING ALCOHOL IN THE PAST YEAR?YES HOW OFTEN DID YOU HAVE A DRINK CONTAINING ALCOHOL IN THE PAST YEAR?MONTHLY OR LESS (1 POINT) POINTS1 INTERPRETATIONNEGATIVE RECREATIONAL DRUG USE DRUG USE?NO CAFFEINE CAFFEINE USE?YES 2-3 DAILY SEXUAL HX HAD SEX IN THE LAST 12 MONTHS (VAGINAL, ORAL, OR ANAL)?NO HAVE YOU EVER HAD AN STD?NO HIV / HEP-C SCREENING HIV TEST OFFERED TO PATIENT:YES DATE OFFERED:06/28/2017 TEST ACCEPTED:NO HEP-C TEST OFFERED TO PATIENT:YES DATE OFFERED:06/28/2017 REASON:PATIENT DECLINED TEST ACCEPTED:NO REASON:PATIENT DECLINED NONDENOMINATIONAL [id number] NONE NO LATTER DAY BELIEFS THAT WOULD IMPACT HEALTH CARE. LANGUAGE LANGUAGES SPOKEN:PER[place] EDUCATION LEVEL OF EDUCATION:HIGH SCHOOL GED LEARNING BARRIERS / SPECIAL NEEDS CHANGE FROM LAST VISIT?NO BARRIERS TO LEARNING?NO HEARING IMPAIRED?NO TINITUS VISION IMPAIRED?YES :CORRECTIVE LENSES COGNITIVELY IMPAIRED?NO READINESS TO LEARN?YES LEARNING PREFERENCES?NO LEARNING CAPABILITIES PRESENT?YES EMOTIONAL BARRIERS?NO SPECIAL DEVICES?YES :CANE NEEDED DAIRY SCIENCE TEACHER NEEDED?NO DOMESTIC VIOLENCE DO YOU FEEL SAFE IN YOUR ENVIRONMENT?YES OCCUPATION: DISABLED. DIET: AVOIDS GREASY, FRIED FOODS, DAIRY.TRIES TO EAT SMALLER PORTIONS. EXERCISE: LOWER BACK EXERCISES, WALKS TOLERATED. MARITAL STATUS: .. OTHERS AT HOME: DAUGHTER. - PFS REFERRAL NEEDED?NO CLERGY REFERRAL NEEDED?NO PUBLIC HEALTH REFERRAL NEEDED?NO HAS THE PATIENT BEEN EDUCATED REGARDING HIS/HER PLAN OF CARE?YES HAS THE PATIENT BEEN EDUCATED REGARDING PAIN, THE RISK FOR PAIN, THE IMPORTANCE OF EFFECTIVE PAIN MANAGEMENT, AND THE PAIN ASSESSMENT PROCESS?YES ADVANCE DIRECTIVE ADVANCE DIRECTIVE DISCUSSED WITH PATIENT:YES PT STATES SHE HAS A HEALTH CARE PROXY-RAH ROSARIO [phone] HOSPITALIZATION/MAJOR DIAGNOSTIC PROCEDURE SURGICAL RELATED REVIEW OF SYSTEMS CONSTITUTIONAL: ANY RECENT FEVER NO . CHILLS NO . WEIGHT CHANGE OF UNKNOWN REASONS NO . GASTROENTEROLOGY: NEW UNEXPLAINABLE CHANGES IN BOWEL CONTROL NO . CONSTIPATION NO . GENITOURINARY: ANY NEW CHANGE IN BLADDER CONTROL? NO . NEUROLOGY: NEW ONSET DIZZINESS OR NEUROLOGICAL CHANGES NOT MENTIONED NO . NEW NUMBNESS OR PAIN PATTERNS NOT MENTIONED AND PERTINENT TO TODAY'S VISIT NO . CARDIOLOGY: NEW CHEST PRESSURE NO . PATIENT DENIES NO . RESPIRATORY: UNEXPLAINABLE COUGH NO . NEW SHORTNESS OF BREATH NO . VITAL SIGNS WT 125 LBS, HT 64 IN, BMI 21.45 INDEX, BP 126/55 MM HG, HR 85 /MIN, RR 18 /MIN, TEMP 98.3 F, OXYGEN SAT % 96%, SAFE IN ENV? (Y/N) YEST.CARYN CORLEY. EXAMINATION GENERAL EXAMINATION: GENERAL AWAKE,ALERT ,PLEASANT . PSYCH AFFECT NORMAL . LUNGS: LUNG LINDSEY ARE CLEAR TO AUSCULTATION BILATERALLY. GOOD MOVEMENT OF AIR . HEART: S1, S2 IN A REGULAR RATE AND RHYTHM. NO SIGNIFICANT MURMURS, RUBS OR GALLOPS NOTED . MUSCULOSKELETAL: MUSCLE STRENGTH TESTING 5/5 BILATERAL LOWER EXTREMITIES. LUMBAR: PALPATION: + FOR PAIN OVER L/S SPINE. + FOR PAIN OVER L/S PARASPINALS WELL-HEALED SURGICAL SCAR L/S AXIS. DIAGNOSTIC TESTS REVIEWEDMRI L/S SPINE . 06/2019. ASSESSMENTS SPONDYLOSIS WITHOUT MYELOPATHY OR RADICULOPATHY, LUMBAR REGION - M47.816 (PRIMARY) OTHER CHRONIC PAIN - G89.29 POST LAMINECTOMY SYNDROME - M96.1 TREATMENT SPONDYLOSIS WITHOUT MYELOPATHY OR RADICULOPATHY, LUMBAR REGION NOTES: BILATERAL DIAGNOSTIC LUMBAR FACET BLOCK L4-5,L5-S1 PRINTED AND REVIEWED PRE PROCEDURE WITH PATIENT EZEKIEL CORLEY. OTHER CHRONIC PAIN PAIN PROCEDURE LOGDATE OF PROCEDURE1PROCEDURE:BILATERAL DIAGNOSTIC LUMBAR FACET BLOCK #1 L4-L5,L5-N8NFEQYH OF PRE SEDATE0/0RESULT:GREATER THAN 80% REDUCTION IN PAIN FOR SEVERAL HOURS POSTPROCEDURESLUIS SANTOS 07/28/2020 5:14:14 PM > ANDREA, CAN YOU PLEASE PUT THE PROCEDURE RESULTS IN THIS PROCEDURE LOG? THANKS. PROCEDURE CODES FA211 ESTABILISHED PATIENT [facility] FAC[facility] CHARGE DISPOSITION & COMMUNICATION FOLLOW UP POST PROCEDURE (REASON: BILATERAL DIAGNOSTIC LUMBAR FACET BLOCK L4-5,L5-S1) ELECTRONICALLY SIGNED BY CARIDAD HENLEY ON 07/30/2020 AT 12:37 PM EDT DISCLAIMER : THIS IS A VISIT SUMMARY EXTRACTED FROM THE [employer] CHART. IT IS NOT A COPY OF THE [employer] PROGRESS NOTE. ZINA
--- NOTE | 2020-07-31 07:37 | ECWPNPC ---
PATIENT NAME: LOGAN CRAVEN : 1960 GENDER: FEMALE VISIT DATE: 07/27/2020 DISCHARGE DATE: 07/27/20 1058 VISIT LOCKED DATE TIME: PHYSICIAN: ANDREA ELIAS PHYSICIAN PAGER NO: ACTIVE RESOURCE: ANDREA ELIAS REASON FOR APPOINTMENT 1. POST BILATERAL DIAGNOSTIC LUMBAR FACET BLOCK #1 L4-L5, L5-S1 HISTORY OF PRESENT ILLNESS GENERAL: HERE FOR POST PROCEDURE FOLLOW-UP. HAD BILATERAL L4-5, L5-S1 LUMBAR DIAGNOSTIC FACET BLOCK ON 07/12/2020. HOURLY DIARY IS REVIEWED AND SHOWS GREATER THAN 80% REDUCTION IN PAIN FOR SEVERAL DAYS. PAIN IS BEGINNING TO RETURN TO BASELINE. DISCUSSED DIAGNOSTIC TESTING #2 AND PROCEEDING WITH RADIOFREQUENCY.-. FALL RISK SCREENING: SCREENING : NO FALLS REPORTED IN THE LAST YEAR. PAIN SCREENING: PATIENT HAS A COMPLAINT OF ACUTE OR CHRONIC PAIN :YES LOCATION OF PAIN:LOW BACK INTENSITY OF PAIN (SCALE OF 1 TO 10):4 WHAT DOES YOUR PAIN FEEL LIKE:CONTINOUS DURATION:CONSTANT PAIN IS INCREASED BY:ACTIVITIES, PROLONGED STANDING, OTHERS WALKING PAIN IS DECREASED BY:OTHERS RESTING AND HEAT AND ICE NURSING NOTE: -. PAIN CENTER INTAKE QUESTIONS: DO YOU HAVE A HISTORY OF MRSA? :NO DO YOU TAKE A BLOOD THINNERS? :YES ELMIRON DO YOU HAVE ANY BLEEDING DISORDERS? :NO ANY NEW NUMBNESS OR WEAKNESS IN YOUR LEGS OR ARMS? :NO ANY PACEMAKER,DEFIBRILLATOR, OR DORSAL COLUMN STIMULATOR? :NO DO YOU HAVE ANY RASHES OR OPEN SORES? :NO ARE YOU ALLERGIC TO IV DYE? :NO ARE YOU DIABETIC? :NO ANY NEW PROBLEMS WITH YOUR MEDICATIONS? :NO HAVE YOU RECEIVED A VACCINE IN THE PAST 30 DAYS? :NO DO YOU PLAN TO RECEIVE A VACCINE IN THE NEXT 21 DAYS? :NO DO YOU NEED ANY PRESCRIPTION? :NO DO YOU TAKE ANY IMMUNOSUPPRESSIVE MEDICATIONS? :YES LEFLUNOMIDE AND ENBREL SURECLICK IS THERE A CHANCE YOU COULD BE ? :NO ARE YOU BREAST FEEDING? :NO CURRENT MEDICATIONS TAKING VITAMIN D 2000 UNIT CAPSULE 1 TABLET ORALLY ONCE A DAY TAKING CANE . MISCELLANEOUS QUAD CANE _ QD R27 TAKING CALCIUM 600 + D 600-400 MG-UNIT TABLET 1 TABLET ORALLY ONCE A DAY TAKING ELMIRON 100 MG CAPSULE 1 CAPSULE ON AN EMPTY STOMACH 1 TABLET THREE A DAY TAKING LEFLUNOMIDE 20 MG TABLET 1 TABLET ORALLY ONCE A DAY TAKING ENBREL SURECLICK 50 MG/ML SOLUTION AUTO-INJECTOR DIRECTED SUBCUTANEOUS ONCE A WEEK TAKING CYANOCOBALAMIN 500 MCG TABLET 1 TABLET ORALLY 1 EVERY 5 DAYS TAKING CARAFATE 1 GM TABLET 1 TABLET ON AN EMPTY STOMACH ORALLY AC TID TAKING ATORVASTATIN CALCIUM 20 MG TABLET 1 TABLET ORALLY ONCE A DAY TAKING FISH OIL 1000 MG CAPSULE 1 CAPSULE ORALLY ONCE A DAY TAKING ESCITALOPRAM OXALATE 10 MG TABLET 15MG 1.5 TABLET ORALLY ONCE A DAY TAKING ESOMEPRAZOLE MAGNESIUM 40 MG CAPSULE DELAYED RELEASE 1 CAPSULE ORALLY AC BID TAKING CARISOPRODOL 350 MG TABLET 1 TABLET NEEDED ORALLY TID PRN, MDD 3 TAKING HYDROCODONE-ACETAMINOPHEN 5-325 MG TABLET 1 TABLET NEEDED ORALLY TID PRN MDD = 3 MEDICATION LIST REVIEWED AND RECONCILED WITH THE PATIENT PAST MEDICAL HISTORY RA/OSTEOARTHRITIS/FIBROMYALGIA NICOTINE ADDICTION-08/2011 FEV1 2.5L (101%)/RATIO 97%-1 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 GERD/DYSPEPSIA-06/2016 NORMAL EGD/COLON/SB CAPSULE-R HYPERLIPIDEMIA 2B ENDOMETRIOSIS 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 SPENCER 2008 FOLLOWS WITH WOMAN TO WOMAN HISTORY OF TUBULAR ADENOMA-NORMAL COLONOSCOPY APRIL 2009 NORMAL COLONOSCOPY C - RANDOM BIOPSIES-[place] COLONOSCOPY 07/18/16 REINDL CERVICAL DJD STATUS POST MULTILEVEL FUSION-01/2010 MRI STABLE ACDF C BASELINE DJD ATROPHIC VAGINITIS OSTEOPENIA VITAMIN D DEFICIENCY CHRONIC SINUSITIS / NONE LATELY RECURRENT UTI / YEARS AGO CHRONIC DIARRHEA STATUS POST LAPAROSCOPIC CHOLECYSTECTOMY JULY 2009//[id number] CHRONIC DRY EYES MEMORY LOSS 2 INSOMNIA, WORK STRESS-12/2011 NORMAL MRI BRAIN S AND NORMAL WORKUP LUMBAR DJD-L2/3 BULGE C L IF HNP C L L2 COMPRESSION, L3/4 SEVERE CCS C B L3 COMPRESSION BY 03/2017 MRI LONG-TERM DISABILITY-TAKEN OOW 08/05/[address] BARAJAS, 01/2014 FILLED OUT LTD PAPERWORK FOR GUARDIAN-PATIENT DEFERRED WCE INSOMNIA, COOMORBID ANXIETY OCULAR SURFACE DISEASE ALLERGIES METHOTREXATE (ANTI-RHEUMATIC): MIGRANES - SIDE EFFECTS CYMBALTA: RACING PLUSE, SHAKES - ALLERGY WELLBUTRIN: PALPITATIONS, SEVERE - ALLERGY SULFA (FOR ALLERGY USE ONLY): NAUSEA/VOMITING - ALLERGY LYRICA: PALPITATIONS - ALLERGY CELEXA: PALPITATIONS - SIDE EFFECTS ORENCIA: ANAPHYLAXIS - ALLERGY TOPICAL ALOE VERA: SEVERE ITCHING CANNOT TOLERATE ASA BASED PRODUCTS/ NSAIDS: HX STOMACH BLEED - CONTRAINDICATION SURGICAL HISTORY LAPAROSCOPY X2 CHRISTINE BTL 1982 TVH [address] SPENCER 2008 VAGINAL CUFF BX. IRMA CHANDLER NP 03/07 CHOLECYSTECTOMY 06/09 ACDF-C4-T1 10/06 R BREAST [id number] 09/2010 ABOVE L CTR- FISH 10/27/14 L4-L5 FUSION/LAMINECTOMY 09/2013 NORMAL EGD/COLON/SB CAPSULE-R 06/2016 FUSION C5 C6 1999 HYSTERECTOMY 1988 BENIGN MOLE REMOVAL 2018 SOCIAL HISTORY GENERAL: TOBACCO USE ARE YOU A:CURRENT SMOKER ARE YOU INTERESTED IN QUITTING?THINKING ABOUT QUITTING COUNSELED THE PATIENT ON SMOKING CESSATION, EDUCATION [id number]/30/2021 HOW MANY CIGARETTES A DAY DO YOU SMOKE?5 OR LESS HOW SOON AFTER YOU WAKE UP DO YOU SMOKE YOUR FIRST CIGARETTE?AFTER 60 MIN HOW OFTEN DO YOU SMOKE CIGARETTES?EVERY DAY PATIENT COUNSELED ON THE DANGERS OF TOBACCO USE AND URGED TO QUIT:05/26/2020 VAPORNO E-CIGARETTENO LATEX QUESTIONNAIRE LATEX ALLERGY : HAVE YOU EVER DEVELOPED ANY TYPE OF REACTION AFTER HANDLING LATEX PRODUCTS SUCH RUBBER GLOVES, CONDOMS, DIAPHRAGMS, BALLOONS, SOCKS, OR UNDERWEAR?NO LATEX ALLERGY : HAVE YOU EVER DEVELOPED ANY TYPE OF REACTION DURING OR AFTER DENTAL APPOINTMENT, VAGINAL/RECTAL EXAMINATION, SURGICAL PROCEDURE, OR ANY OTHER EXPOSURE?NO LATEX RISK : HAVE YOU EVER HAD ANY DIFFICULTY BREATHING OR HIVES AFTER EATING OR HANDLING ANY FRUITS, OR VEGETABLES; SUCH KIWI, BANANAS, STONE FRUITS, OR CHESTNUTSNO LATEX RISK : DO YOU HAVE A PREVIOUS PERSONAL HISTORY OF MORE THAN NINE SURGERIES, SPINA BIFIDA, OR REPEATED CATHERIZATIONS? YES LATEX RISK : ARE YOU FREQUENTLY EXPOSED TO LATEX PRODUCTS IN YOUR OCCUPATION?NO DATE ASKED : 07/27/2020 ALCOHOL USE: NO, ONCE EVERY 4 MONTH. ALCOHOL SCREENING DID YOU HAVE A DRINK CONTAINING ALCOHOL IN THE PAST YEAR?YES HOW OFTEN DID YOU HAVE A DRINK CONTAINING ALCOHOL IN THE PAST YEAR?MONTHLY OR LESS (1 POINT) POINTS1 INTERPRETATIONNEGATIVE RECREATIONAL DRUG USE DRUG USE?NO CAFFEINE CAFFEINE USE?YES 2-3 DAILY SEXUAL HX HAD SEX IN THE LAST 12 MONTHS (VAGINAL, ORAL, OR ANAL)?NO HAVE YOU EVER HAD AN STD?NO HIV / HEP-C SCREENING HIV TEST OFFERED TO PATIENT:YES DATE OFFERED:06/28/2017 TEST ACCEPTED:NO HEP-C TEST OFFERED TO PATIENT:YES DATE OFFERED:06/28/2017 REASON:PATIENT DECLINED TEST ACCEPTED:NO REASON:PATIENT DECLINED JEHOVAH'S WITNESS [id number] NONE NO MOSQUE BELIEFS THAT WOULD IMPACT HEALTH CARE. LANGUAGE LANGUAGES SPOKEN:[place] EDUCATION LEVEL OF EDUCATION:HIGH SCHOOL GED LEARNING BARRIERS / SPECIAL NEEDS CHANGE FROM LAST VISIT?NO BARRIERS TO LEARNING?NO HEARING IMPAIRED?NO TINITUS VISION IMPAIRED?YES :CORRECTIVE LENSES COGNITIVELY IMPAIRED?NO READINESS TO LEARN?YES LEARNING PREFERENCES?NO LEARNING CAPABILITIES PRESENT?YES EMOTIONAL BARRIERS?NO SPECIAL DEVICES?YES :CANE NEEDED OPERATIONS ASSISTANT NEEDED?NO DOMESTIC VIOLENCE DO YOU FEEL SAFE IN YOUR ENVIRONMENT?YES OCCUPATION: DISABLED. DIET: AVOIDS GREASY, FRIED FOODS, DAIRY.TRIES TO EAT SMALLER PORTIONS. EXERCISE: LOWER BACK EXERCISES, WALKS TOLERATED. MARITAL STATUS: .. OTHERS AT HOME: DAUGHTER. - PFS REFERRAL NEEDED?NO CLERGY REFERRAL NEEDED?NO PUBLIC HEALTH REFERRAL NEEDED?NO HAS THE PATIENT BEEN EDUCATED REGARDING HIS/HER PLAN OF CARE?YES HAS THE PATIENT BEEN EDUCATED REGARDING PAIN, THE RISK FOR PAIN, THE IMPORTANCE OF EFFECTIVE PAIN MANAGEMENT, AND THE PAIN ASSESSMENT PROCESS?YES ADVANCE DIRECTIVE ADVANCE DIRECTIVE DISCUSSED WITH PATIENT:YES PT STATES SHE HAS A HEALTH CARE PROXY-RAH ROSARIO [phone] HOSPITALIZATION/MAJOR DIAGNOSTIC PROCEDURE SURGICAL RELATED REVIEW OF SYSTEMS CONSTITUTIONAL: ANY RECENT FEVER NO . CHILLS NO . WEIGHT CHANGE OF UNKNOWN REASONS NO . GASTROENTEROLOGY: NEW UNEXPLAINABLE CHANGES IN BOWEL CONTROL NO . CONSTIPATION NO . GENITOURINARY: ANY NEW CHANGE IN BLADDER CONTROL? NO . NEUROLOGY: NEW ONSET DIZZINESS OR NEUROLOGICAL CHANGES NOT MENTIONED NO . NEW NUMBNESS OR PAIN PATTERNS NOT MENTIONED AND PERTINENT TO TODAY'S VISIT NO . CARDIOLOGY: NEW CHEST PRESSURE NO . PATIENT DENIES NO . RESPIRATORY: UNEXPLAINABLE COUGH NO . NEW SHORTNESS OF BREATH NO . VITAL SIGNS WT 125 LBS, HT 64 IN, BMI 21.45 INDEX, BP 126/55 MM HG, HR 85 /MIN, RR 18 /MIN, TEMP 98.3 F, OXYGEN SAT % 96%, SAFE IN ENV? (Y/N) YEST.CARYN CORLEY. EXAMINATION GENERAL EXAMINATION: GENERAL AWAKE,ALERT ,PLEASANT . PSYCH AFFECT NORMAL . LUNGS: LUNG LINDSEY ARE CLEAR TO AUSCULTATION BILATERALLY. GOOD MOVEMENT OF AIR . HEART: S1, S2 IN A REGULAR RATE AND RHYTHM. NO SIGNIFICANT MURMURS, RUBS OR GALLOPS NOTED . MUSCULOSKELETAL: MUSCLE STRENGTH TESTING 5/5 BILATERAL LOWER EXTREMITIES. LUMBAR: PALPATION: + FOR PAIN OVER L/S SPINE. + FOR PAIN OVER L/S PARASPINALS WELL-HEALED SURGICAL SCAR L/S AXIS. DIAGNOSTIC TESTS REVIEWEDMRI L/S SPINE . 06/2019. ASSESSMENTS SPONDYLOSIS WITHOUT MYELOPATHY OR RADICULOPATHY, LUMBAR REGION - M47.816 (PRIMARY) OTHER CHRONIC PAIN - G89.29 POST LAMINECTOMY SYNDROME - M96.1 TREATMENT SPONDYLOSIS WITHOUT MYELOPATHY OR RADICULOPATHY, LUMBAR REGION NOTES: BILATERAL DIAGNOSTIC LUMBAR FACET BLOCK L4-5,L5-S1 PRINTED AND REVIEWED PRE PROCEDURE WITH PATIENT EZEKIEL CORLEY. OTHER CHRONIC PAIN PAIN PROCEDURE LOGDATE OF PROCEDURE1PROCEDURE:BILATERAL DIAGNOSTIC LUMBAR FACET BLOCK #1 L4-L5,L5-A5WNRTTP OF PRE SEDATE0/0RESULT:GREATER THAN 80% REDUCTION IN PAIN FOR SEVERAL HOURS POSTPROCEDURESLUIS SANTOS 07/28/2020 5:14:14 PM > ANDREA, CAN YOU PLEASE PUT THE PROCEDURE RESULTS IN THIS PROCEDURE LOG? THANKS. PROCEDURE CODES FA211 ESTABILISHED PATIENT [facility] FACILITY CHARGE DISPOSITION & COMMUNICATION FOLLOW UP POST PROCEDURE (REASON: BILATERAL DIAGNOSTIC LUMBAR FACET BLOCK L4-5,L5-S1) ELECTRONICALLY SIGNED BY CARIDAD HENLEY ON 07/30/2020 AT 12:37 PM EDT DISCLAIMER : THIS IS A VISIT SUMMARY EXTRACTED FROM THE [employer] CHART. IT IS NOT A COPY OF THE [employer] PROGRESS NOTE. ZINA
--- NOTE | 2020-07-31 07:39 | ECWPNPC ---
PATIENT NAME: LOGAN CRAVEN : 1960 GENDER: FEMALE VISIT DATE: 07/27/2020 DISCHARGE DATE: 07/27/20 1058 VISIT LOCKED DATE TIME: PHYSICIAN: ANDREA ELIAS PHYSICIAN PAGER NO: ACTIVE RESOURCE: ANDREA ELIAS REASON FOR APPOINTMENT 1. POST BILATERAL DIAGNOSTIC LUMBAR FACET BLOCK #1 L4-L5, L5-S1 HISTORY OF PRESENT ILLNESS GENERAL: HERE FOR POST PROCEDURE FOLLOW-UP. HAD BILATERAL L4-5, L5-S1 LUMBAR DIAGNOSTIC FACET BLOCK ON 07/12/2020. HOURLY DIARY IS REVIEWED AND SHOWS GREATER THAN 80% REDUCTION IN PAIN FOR SEVERAL DAYS. PAIN IS BEGINNING TO RETURN TO BASELINE. DISCUSSED DIAGNOSTIC TESTING #2 AND PROCEEDING WITH RADIOFREQUENCY.-. FALL RISK SCREENING: SCREENING : NO FALLS REPORTED IN THE LAST YEAR. PAIN SCREENING: PATIENT HAS A COMPLAINT OF ACUTE OR CHRONIC PAIN :YES LOCATION OF PAIN:LOW BACK INTENSITY OF PAIN (SCALE OF 1 TO 10):4 WHAT DOES YOUR PAIN FEEL LIKE:CONTINOUS DURATION:CONSTANT PAIN IS INCREASED BY:ACTIVITIES, PROLONGED STANDING, OTHERS WALKING PAIN IS DECREASED BY:OTHERS RESTING AND HEAT AND ICE NURSING NOTE: -. PAIN CENTER INTAKE QUESTIONS: DO YOU HAVE A HISTORY OF MRSA? :NO DO YOU TAKE A BLOOD THINNERS? :YES ELMIRON DO YOU HAVE ANY BLEEDING DISORDERS? :NO ANY NEW NUMBNESS OR WEAKNESS IN YOUR LEGS OR ARMS? :NO ANY PACEMAKER,DEFIBRILLATOR, OR DORSAL COLUMN STIMULATOR? :NO DO YOU HAVE ANY RASHES OR OPEN SORES? :NO ARE YOU ALLERGIC TO IV DYE? :NO ARE YOU DIABETIC? :NO ANY NEW PROBLEMS WITH YOUR MEDICATIONS? :NO HAVE YOU RECEIVED A VACCINE IN THE PAST 30 DAYS? :NO DO YOU PLAN TO RECEIVE A VACCINE IN THE NEXT 21 DAYS? :NO DO YOU NEED ANY PRESCRIPTION? :NO DO YOU TAKE ANY IMMUNOSUPPRESSIVE MEDICATIONS? :YES LEFLUNOMIDE AND ENBREL SURECLICK IS THERE A CHANCE YOU COULD BE ? :NO ARE YOU BREAST FEEDING? :NO CURRENT MEDICATIONS TAKING VITAMIN D 2000 UNIT CAPSULE 1 TABLET ORALLY ONCE A DAY TAKING CANE . MISCELLANEOUS QUAD CANE _ QD R27 TAKING CALCIUM 600 + D 600-400 MG-UNIT TABLET 1 TABLET ORALLY ONCE A DAY TAKING ELMIRON 100 MG CAPSULE 1 CAPSULE ON AN EMPTY STOMACH 1 TABLET THREE A DAY TAKING LEFLUNOMIDE 20 MG TABLET 1 TABLET ORALLY ONCE A DAY TAKING ENBREL SURECLICK 50 MG/ML SOLUTION AUTO-INJECTOR DIRECTED SUBCUTANEOUS ONCE A WEEK TAKING CYANOCOBALAMIN 500 MCG TABLET 1 TABLET ORALLY 1 EVERY 5 DAYS TAKING CARAFATE 1 GM TABLET 1 TABLET ON AN EMPTY STOMACH ORALLY AC TID TAKING ATORVASTATIN CALCIUM 20 MG TABLET 1 TABLET ORALLY ONCE A DAY TAKING FISH OIL 1000 MG CAPSULE 1 CAPSULE ORALLY ONCE A DAY TAKING ESCITALOPRAM OXALATE 10 MG TABLET 15MG 1.5 TABLET ORALLY ONCE A DAY TAKING ESOMEPRAZOLE MAGNESIUM 40 MG CAPSULE DELAYED RELEASE 1 CAPSULE ORALLY AC BID TAKING CARISOPRODOL 350 MG TABLET 1 TABLET NEEDED ORALLY TID PRN, MDD 3 TAKING HYDROCODONE-ACETAMINOPHEN 5-325 MG TABLET 1 TABLET NEEDED ORALLY TID PRN MDD = 3 MEDICATION LIST REVIEWED AND RECONCILED WITH THE PATIENT PAST MEDICAL HISTORY RA/OSTEOARTHRITIS/FIBROMYALGIA NICOTINE ADDICTION-08/2011 FEV1 2.5L (101%)/RATIO 97%-1 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 GERD/DYSPEPSIA-06/2016 NORMAL EGD/COLON/SB CAPSULE-R HYPERLIPIDEMIA 2B ENDOMETRIOSIS 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 SPENCER 2008 FOLLOWS WITH WOMAN TO WOMAN HISTORY OF TUBULAR ADENOMA-NORMAL COLONOSCOPY APRIL 2009 NORMAL COLONOSCOPY C - RANDOM BIOPSIES-[place] COLONOSCOPY 07/18/16 REINDL CERVICAL DJD STATUS POST MULTILEVEL FUSION-01/2010 MRI STABLE ACDF C BASELINE DJD ATROPHIC VAGINITIS OSTEOPENIA VITAMIN D DEFICIENCY CHRONIC SINUSITIS / NONE LATELY RECURRENT UTI / YEARS AGO CHRONIC DIARRHEA STATUS POST LAPAROSCOPIC CHOLECYSTECTOMY JULY 2009//[id number] CHRONIC DRY EYES MEMORY LOSS 2 INSOMNIA, WORK STRESS-12/2011 NORMAL MRI BRAIN S AND NORMAL WORKUP LUMBAR DJD-L2/3 BULGE C L IF HNP C L L2 COMPRESSION, L3/4 SEVERE CCS C B L3 COMPRESSION BY 03/2017 MRI LONG-TERM DISABILITY-TAKEN OOW 08/05/[address] BARAJAS, 01/2014 FILLED OUT LTD PAPERWORK FOR GUARDIAN-PATIENT DEFERRED WCE INSOMNIA, COOMORBID ANXIETY OCULAR SURFACE DISEASE ALLERGIES METHOTREXATE (ANTI-RHEUMATIC): MIGRANES - SIDE EFFECTS CYMBALTA: RACING PLUSE, SHAKES - ALLERGY WELLBUTRIN: PALPITATIONS, SEVERE - ALLERGY SULFA (FOR ALLERGY USE ONLY): NAUSEA/VOMITING - ALLERGY LYRICA: PALPITATIONS - ALLERGY CELEXA: PALPITATIONS - SIDE EFFECTS ORENCIA: ANAPHYLAXIS - ALLERGY TOPICAL ALOE VERA: SEVERE ITCHING CANNOT TOLERATE ASA BASED PRODUCTS/ NSAIDS: HX STOMACH BLEED - CONTRAINDICATION SURGICAL HISTORY LAPAROSCOPY X2 CHRISTINE BTL 1982 TVH [address] SPENCER 2008 VAGINAL CUFF BX. IRMA CHANDLER NP 03/07 CHOLECYSTECTOMY 06/09 ACDF-C4-T1 10/06 R BREAST [id number] 09/2010 ABOVE L CTR- FISH 10/27/14 L4-L5 FUSION/LAMINECTOMY 09/2013 NORMAL EGD/COLON/SB CAPSULE-R 06/2016 FUSION C5 C6 1999 HYSTERECTOMY 1988 BENIGN MOLE REMOVAL 2018 SOCIAL HISTORY GENERAL: TOBACCO USE ARE YOU A:CURRENT SMOKER ARE YOU INTERESTED IN QUITTING?THINKING ABOUT QUITTING COUNSELED THE PATIENT ON SMOKING CESSATION, EDUCATION [id number]/30/2021 HOW MANY CIGARETTES A DAY DO YOU SMOKE?5 OR LESS HOW SOON AFTER YOU WAKE UP DO YOU SMOKE YOUR FIRST CIGARETTE?AFTER 60 MIN HOW OFTEN DO YOU SMOKE CIGARETTES?EVERY DAY PATIENT COUNSELED ON THE DANGERS OF TOBACCO USE AND URGED TO QUIT:05/26/2020 VAPORNO E-CIGARETTENO LATEX QUESTIONNAIRE LATEX ALLERGY : HAVE YOU EVER DEVELOPED ANY TYPE OF REACTION AFTER HANDLING LATEX PRODUCTS SUCH RUBBER GLOVES, CONDOMS, DIAPHRAGMS, BALLOONS, SOCKS, OR UNDERWEAR?NO LATEX ALLERGY : HAVE YOU EVER DEVELOPED ANY TYPE OF REACTION DURING OR AFTER DENTAL APPOINTMENT, VAGINAL/RECTAL EXAMINATION, SURGICAL PROCEDURE, OR ANY OTHER EXPOSURE?NO LATEX RISK : HAVE YOU EVER HAD ANY DIFFICULTY BREATHING OR HIVES AFTER EATING OR HANDLING ANY FRUITS, OR VEGETABLES; SUCH KIWI, BANANAS, STONE FRUITS, OR CHESTNUTSNO LATEX RISK : DO YOU HAVE A PREVIOUS PERSONAL HISTORY OF MORE THAN NINE SURGERIES, SPINA BIFIDA, OR REPEATED CATHERIZATIONS? YES LATEX RISK : ARE YOU FREQUENTLY EXPOSED TO LATEX PRODUCTS IN YOUR OCCUPATION?NO DATE ASKED : 07/27/2020 ALCOHOL USE: NO, ONCE EVERY 4 MONTH. ALCOHOL SCREENING DID YOU HAVE A DRINK CONTAINING ALCOHOL IN THE PAST YEAR?YES HOW OFTEN DID YOU HAVE A DRINK CONTAINING ALCOHOL IN THE PAST YEAR?MONTHLY OR LESS (1 POINT) POINTS1 INTERPRETATIONNEGATIVE RECREATIONAL DRUG USE DRUG USE?NO CAFFEINE CAFFEINE USE?YES 2-3 DAILY SEXUAL HX HAD SEX IN THE LAST 12 MONTHS (VAGINAL, ORAL, OR ANAL)?NO HAVE YOU EVER HAD AN STD?NO HIV / HEP-C SCREENING HIV TEST OFFERED TO PATIENT:YES DATE OFFERED:06/28/2017 TEST ACCEPTED:NO HEP-C TEST OFFERED TO PATIENT:YES DATE OFFERED:06/28/2017 REASON:PATIENT DECLINED TEST ACCEPTED:NO REASON:PATIENT DECLINED SCIENTOLOGIST [id number] NONE NO GNOSTICIST BELIEFS THAT WOULD IMPACT HEALTH CARE. LANGUAGE LANGUAGES SPOKEN:[place] EDUCATION LEVEL OF EDUCATION:HIGH SCHOOL GED LEARNING BARRIERS / SPECIAL NEEDS CHANGE FROM LAST VISIT?NO BARRIERS TO LEARNING?NO HEARING IMPAIRED?NO TINITUS VISION IMPAIRED?YES :CORRECTIVE LENSES COGNITIVELY IMPAIRED?NO READINESS TO LEARN?YES LEARNING PREFERENCES?NO LEARNING CAPABILITIES PRESENT?YES EMOTIONAL BARRIERS?NO SPECIAL DEVICES?YES :CANE NEEDED DATA CODER OPERATOR NEEDED?NO DOMESTIC VIOLENCE DO YOU FEEL SAFE IN YOUR ENVIRONMENT?YES OCCUPATION: DISABLED. DIET: AVOIDS GREASY, FRIED FOODS, DAIRY.TRIES TO EAT SMALLER PORTIONS. EXERCISE: LOWER BACK EXERCISES, WALKS TOLERATED. MARITAL STATUS: .. OTHERS AT HOME: DAUGHTER. - PFS REFERRAL NEEDED?NO CLERGY REFERRAL NEEDED?NO PUBLIC HEALTH REFERRAL NEEDED?NO HAS THE PATIENT BEEN EDUCATED REGARDING HIS/HER PLAN OF CARE?YES HAS THE PATIENT BEEN EDUCATED REGARDING PAIN, THE RISK FOR PAIN, THE IMPORTANCE OF EFFECTIVE PAIN MANAGEMENT, AND THE PAIN ASSESSMENT PROCESS?YES ADVANCE DIRECTIVE ADVANCE DIRECTIVE DISCUSSED WITH PATIENT:YES PT STATES SHE HAS A HEALTH CARE PROXY-RAH ROSARIO [phone] HOSPITALIZATION/MAJOR DIAGNOSTIC PROCEDURE SURGICAL RELATED REVIEW OF SYSTEMS CONSTITUTIONAL: ANY RECENT FEVER NO . CHILLS NO . WEIGHT CHANGE OF UNKNOWN REASONS NO . GASTROENTEROLOGY: NEW UNEXPLAINABLE CHANGES IN BOWEL CONTROL NO . CONSTIPATION NO . GENITOURINARY: ANY NEW CHANGE IN BLADDER CONTROL? NO . NEUROLOGY: NEW ONSET DIZZINESS OR NEUROLOGICAL CHANGES NOT MENTIONED NO . NEW NUMBNESS OR PAIN PATTERNS NOT MENTIONED AND PERTINENT TO TODAY'S VISIT NO . CARDIOLOGY: NEW CHEST PRESSURE NO . PATIENT DENIES NO . RESPIRATORY: UNEXPLAINABLE COUGH NO . NEW SHORTNESS OF BREATH NO . VITAL SIGNS WT 125 LBS, HT 64 IN, BMI 21.45 INDEX, BP 126/55 MM HG, HR 85 /MIN, RR 18 /MIN, TEMP 98.3 F, OXYGEN SAT % 96%, SAFE IN ENV? (Y/N) YEST.CARYN CORLEY. EXAMINATION GENERAL EXAMINATION: GENERAL AWAKE,ALERT ,PLEASANT . PSYCH AFFECT NORMAL . LUNGS: LUNG LINDSEY ARE CLEAR TO AUSCULTATION BILATERALLY. GOOD MOVEMENT OF AIR . HEART: S1, S2 IN A REGULAR RATE AND RHYTHM. NO SIGNIFICANT MURMURS, RUBS OR GALLOPS NOTED . MUSCULOSKELETAL: MUSCLE STRENGTH TESTING 5/5 BILATERAL LOWER EXTREMITIES. LUMBAR: PALPATION: + FOR PAIN OVER L/S SPINE. + FOR PAIN OVER L/S PARASPINALS WELL-HEALED SURGICAL SCAR L/S AXIS. DIAGNOSTIC TESTS REVIEWEDMRI L/S SPINE . 06/2019. ASSESSMENTS SPONDYLOSIS WITHOUT MYELOPATHY OR RADICULOPATHY, LUMBAR REGION - M47.816 (PRIMARY) OTHER CHRONIC PAIN - G89.29 POST LAMINECTOMY SYNDROME - M96.1 TREATMENT SPONDYLOSIS WITHOUT MYELOPATHY OR RADICULOPATHY, LUMBAR REGION NOTES: BILATERAL DIAGNOSTIC LUMBAR FACET BLOCK L4-5,L5-S1 PRINTED AND REVIEWED PRE PROCEDURE WITH PATIENT EZEKIEL CORLEY. OTHER CHRONIC PAIN PAIN PROCEDURE LOGDATE OF PROCEDURE1PROCEDURE:BILATERAL DIAGNOSTIC LUMBAR FACET BLOCK #1 L4-L5,L5-V5EZZDSO OF PRE SEDATE0/0RESULT:GREATER THAN 80% REDUCTION IN PAIN FOR SEVERAL HOURS POSTPROCEDURESLUIS SANTOS 07/28/2020 5:14:14 PM > ANDREA, CAN YOU PLEASE PUT THE PROCEDURE RESULTS IN THIS PROCEDURE LOG? THANKS. PROCEDURE CODES FA211 ESTABILISHED PATIENT [facility] FACILITY CHARGE DISPOSITION & COMMUNICATION FOLLOW UP POST PROCEDURE (REASON: BILATERAL DIAGNOSTIC LUMBAR FACET BLOCK L4-5,L5-S1) ELECTRONICALLY SIGNED BY CARIDAD HENLEY ON 07/30/2020 AT 12:37 PM EDT DISCLAIMER : THIS IS A VISIT SUMMARY EXTRACTED FROM THE [employer] CHART. IT IS NOT A COPY OF THE [employer] [employer] PROGRESS NOTE. ZINA
--- NOTE | 2020-07-31 07:41 | ECWPNPC ---
PATIENT NAME: LOGAN CRAVEN : 1960 GENDER: FEMALE VISIT DATE: 07/27/2020 DISCHARGE DATE: 07/27/20 1058 VISIT LOCKED DATE TIME: PHYSICIAN: ANDREA ELIAS PHYSICIAN PAGER NO: ACTIVE RESOURCE: ANDREA ELIAS REASON FOR APPOINTMENT 1. POST BILATERAL DIAGNOSTIC LUMBAR FACET BLOCK #1 L4-L5, L5-S1 HISTORY OF PRESENT ILLNESS GENERAL: HERE FOR POST PROCEDURE FOLLOW-UP. HAD BILATERAL L4-5, L5-S1 LUMBAR DIAGNOSTIC FACET BLOCK ON 07/12/2020. HOURLY DIARY IS REVIEWED AND SHOWS GREATER THAN 80% REDUCTION IN PAIN FOR SEVERAL DAYS. PAIN IS BEGINNING TO RETURN TO BASELINE. DISCUSSED DIAGNOSTIC TESTING #2 AND PROCEEDING WITH RADIOFREQUENCY.-. FALL RISK SCREENING: SCREENING : NO FALLS REPORTED IN THE LAST YEAR. PAIN SCREENING: PATIENT HAS A COMPLAINT OF ACUTE OR CHRONIC PAIN :YES LOCATION OF PAIN:LOW BACK INTENSITY OF PAIN (SCALE OF 1 TO 10):4 WHAT DOES YOUR PAIN FEEL LIKE:CONTINOUS DURATION:CONSTANT PAIN IS INCREASED BY:ACTIVITIES, PROLONGED STANDING, OTHERS WALKING PAIN IS DECREASED BY:OTHERS RESTING AND HEAT AND ICE NURSING NOTE: -. PAIN CENTER INTAKE QUESTIONS: DO YOU HAVE A HISTORY OF MRSA? :NO DO YOU TAKE A BLOOD THINNERS? :YES ELMIRON DO YOU HAVE ANY BLEEDING DISORDERS? :NO ANY NEW NUMBNESS OR WEAKNESS IN YOUR LEGS OR ARMS? :NO ANY PACEMAKER,DEFIBRILLATOR, OR DORSAL COLUMN STIMULATOR? :NO DO YOU HAVE ANY RASHES OR OPEN SORES? :NO ARE YOU ALLERGIC TO IV DYE? :NO ARE YOU DIABETIC? :NO ANY NEW PROBLEMS WITH YOUR MEDICATIONS? :NO HAVE YOU RECEIVED A VACCINE IN THE PAST 30 DAYS? :NO DO YOU PLAN TO RECEIVE A VACCINE IN THE NEXT 21 DAYS? :NO DO YOU NEED ANY PRESCRIPTION? :NO DO YOU TAKE ANY IMMUNOSUPPRESSIVE MEDICATIONS? :YES LEFLUNOMIDE AND ENBREL SURECLICK IS THERE A CHANCE YOU COULD BE ? :NO ARE YOU BREAST FEEDING? :NO CURRENT MEDICATIONS TAKING VITAMIN D 2000 UNIT CAPSULE 1 TABLET ORALLY ONCE A DAY TAKING CANE . MISCELLANEOUS QUAD CANE _ QD R27 TAKING CALCIUM 600 + D 600-400 MG-UNIT TABLET 1 TABLET ORALLY ONCE A DAY TAKING ELMIRON 100 MG CAPSULE 1 CAPSULE ON AN EMPTY STOMACH 1 TABLET THREE A DAY TAKING LEFLUNOMIDE 20 MG TABLET 1 TABLET ORALLY ONCE A DAY TAKING ENBREL SURECLICK 50 MG/ML SOLUTION AUTO-INJECTOR DIRECTED SUBCUTANEOUS ONCE A WEEK TAKING CYANOCOBALAMIN 500 MCG TABLET 1 TABLET ORALLY 1 EVERY 5 DAYS TAKING CARAFATE 1 GM TABLET 1 TABLET ON AN EMPTY STOMACH ORALLY AC TID TAKING ATORVASTATIN CALCIUM 20 MG TABLET 1 TABLET ORALLY ONCE A DAY TAKING FISH OIL 1000 MG CAPSULE 1 CAPSULE ORALLY ONCE A DAY TAKING ESCITALOPRAM OXALATE 10 MG TABLET 15MG 1.5 TABLET ORALLY ONCE A DAY TAKING ESOMEPRAZOLE MAGNESIUM 40 MG CAPSULE DELAYED RELEASE 1 CAPSULE ORALLY AC BID TAKING CARISOPRODOL 350 MG TABLET 1 TABLET NEEDED ORALLY TID PRN, MDD 3 TAKING HYDROCODONE-ACETAMINOPHEN 5-325 MG TABLET 1 TABLET NEEDED ORALLY TID PRN MDD = 3 MEDICATION LIST REVIEWED AND RECONCILED WITH THE PATIENT PAST MEDICAL HISTORY RA/OSTEOARTHRITIS/FIBROMYALGIA NICOTINE ADDICTION-08/2011 FEV1 2.5L (101%)/RATIO 97%-1 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 GERD/DYSPEPSIA-06/2016 NORMAL EGD/COLON/SB CAPSULE-R HYPERLIPIDEMIA 2B ENDOMETRIOSIS 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 SPENCER 2008 FOLLOWS WITH WOMAN TO WOMAN HISTORY OF TUBULAR ADENOMA-NORMAL COLONOSCOPY APRIL 2009 NORMAL COLONOSCOPY C - RANDOM BIOPSIES-[place] COLONOSCOPY 07/18/16 REINDL CERVICAL DJD STATUS POST MULTILEVEL FUSION-01/2010 MRI STABLE ACDF C BASELINE DJD ATROPHIC VAGINITIS OSTEOPENIA VITAMIN D DEFICIENCY CHRONIC SINUSITIS / NONE LATELY RECURRENT UTI / YEARS AGO CHRONIC DIARRHEA STATUS POST LAPAROSCOPIC CHOLECYSTECTOMY JULY 2009//[id number] CHRONIC DRY EYES MEMORY LOSS 2 INSOMNIA, WORK STRESS-12/2011 NORMAL MRI BRAIN S AND NORMAL WORKUP LUMBAR DJD-L2/3 BULGE C L IF HNP C L L2 COMPRESSION, L3/4 SEVERE CCS C B L3 COMPRESSION BY 03/2017 MRI LONG-TERM DISABILITY-TAKEN OOW 08/05/[address] BARAJAS, 01/2014 FILLED OUT LTD PAPERWORK FOR GUARDIAN-PATIENT DEFERRED WCE INSOMNIA, COOMORBID ANXIETY OCULAR SURFACE DISEASE ALLERGIES METHOTREXATE (ANTI-RHEUMATIC): MIGRANES - SIDE EFFECTS CYMBALTA: RACING PLUSE, SHAKES - ALLERGY WELLBUTRIN: PALPITATIONS, SEVERE - ALLERGY SULFA (FOR ALLERGY USE ONLY): NAUSEA/VOMITING - ALLERGY LYRICA: PALPITATIONS - ALLERGY CELEXA: PALPITATIONS - SIDE EFFECTS ORENCIA: ANAPHYLAXIS - ALLERGY TOPICAL ALOE VERA: SEVERE ITCHING CANNOT TOLERATE ASA BASED PRODUCTS/ NSAIDS: HX STOMACH BLEED - CONTRAINDICATION SURGICAL HISTORY LAPAROSCOPY X2 CHRISTINE BTL 1982 TVH [address] SPENCER 2008 VAGINAL CUFF BX. IRMA CHANDLER NP 03/07 CHOLECYSTECTOMY 06/09 ACDF-C4-T1 10/06 R BREAST [id number] 09/2010 ABOVE L CTR- FISH 10/27/14 L4-L5 FUSION/LAMINECTOMY 09/2013 NORMAL EGD/COLON/SB CAPSULE-R 06/2016 FUSION C5 C6 1999 HYSTERECTOMY 1988 BENIGN MOLE REMOVAL 2018 SOCIAL HISTORY GENERAL: TOBACCO USE ARE YOU A:CURRENT SMOKER ARE YOU INTERESTED IN QUITTING?THINKING ABOUT QUITTING COUNSELED THE PATIENT ON SMOKING CESSATION, EDUCATION [id number]/30/2021 HOW MANY CIGARETTES A DAY DO YOU SMOKE?5 OR LESS HOW SOON AFTER YOU WAKE UP DO YOU SMOKE YOUR FIRST CIGARETTE?AFTER 60 MIN HOW OFTEN DO YOU SMOKE CIGARETTES?EVERY DAY PATIENT COUNSELED ON THE DANGERS OF TOBACCO USE AND URGED TO QUIT:05/26/2020 VAPORNO E-CIGARETTENO LATEX QUESTIONNAIRE LATEX ALLERGY : HAVE YOU EVER DEVELOPED ANY TYPE OF REACTION AFTER HANDLING LATEX PRODUCTS SUCH RUBBER GLOVES, CONDOMS, DIAPHRAGMS, BALLOONS, SOCKS, OR UNDERWEAR?NO LATEX ALLERGY : HAVE YOU EVER DEVELOPED ANY TYPE OF REACTION DURING OR AFTER DENTAL APPOINTMENT, VAGINAL/RECTAL EXAMINATION, SURGICAL PROCEDURE, OR ANY OTHER EXPOSURE?NO LATEX RISK : HAVE YOU EVER HAD ANY DIFFICULTY BREATHING OR HIVES AFTER EATING OR HANDLING ANY FRUITS, OR VEGETABLES; SUCH KIWI, BANANAS, STONE FRUITS, OR CHESTNUTSNO LATEX RISK : DO YOU HAVE A PREVIOUS PERSONAL HISTORY OF MORE THAN NINE SURGERIES, SPINA BIFIDA, OR REPEATED CATHERIZATIONS? YES LATEX RISK : ARE YOU FREQUENTLY EXPOSED TO LATEX PRODUCTS IN YOUR OCCUPATION?NO DATE ASKED : 07/27/2020 ALCOHOL USE: NO, ONCE EVERY 4 MONTH. ALCOHOL SCREENING DID YOU HAVE A DRINK CONTAINING ALCOHOL IN THE PAST YEAR?YES HOW OFTEN DID YOU HAVE A DRINK CONTAINING ALCOHOL IN THE PAST YEAR?MONTHLY OR LESS (1 POINT) POINTS1 INTERPRETATIONNEGATIVE RECREATIONAL DRUG USE DRUG USE?NO CAFFEINE CAFFEINE USE?YES 2-3 DAILY SEXUAL HX HAD SEX IN THE LAST 12 MONTHS (VAGINAL, ORAL, OR ANAL)?NO HAVE YOU EVER HAD AN STD?NO HIV / HEP-C SCREENING HIV TEST OFFERED TO PATIENT:YES DATE OFFERED:06/28/2017 TEST ACCEPTED:NO HEP-C TEST OFFERED TO PATIENT:YES DATE OFFERED:06/28/2017 REASON:PATIENT DECLINED TEST ACCEPTED:NO REASON:PATIENT DECLINED MORMON [id number] NONE NO ANGLICAN BELIEFS THAT WOULD IMPACT HEALTH CARE. LANGUAGE LANGUAGES SPOKEN:KOREAN EDUCATION LEVEL OF EDUCATION:HIGH SCHOOL GED LEARNING BARRIERS / SPECIAL NEEDS CHANGE FROM LAST VISIT?NO BARRIERS TO LEARNING?NO HEARING IMPAIRED?NO TINITUS VISION IMPAIRED?YES :CORRECTIVE LENSES COGNITIVELY IMPAIRED?NO READINESS TO LEARN?YES LEARNING PREFERENCES?NO LEARNING CAPABILITIES PRESENT?YES EMOTIONAL BARRIERS?NO SPECIAL DEVICES?YES :CANE NEEDED AUTO HIKER NEEDED?NO DOMESTIC VIOLENCE DO YOU FEEL SAFE IN YOUR ENVIRONMENT?YES OCCUPATION: DISABLED. DIET: AVOIDS GREASY, FRIED FOODS, DAIRY.TRIES TO EAT SMALLER PORTIONS. EXERCISE: LOWER BACK EXERCISES, WALKS TOLERATED. MARITAL STATUS: .. OTHERS AT HOME: DAUGHTER. - PFS REFERRAL NEEDED?NO CLERGY REFERRAL NEEDED?NO PUBLIC HEALTH REFERRAL NEEDED?NO HAS THE PATIENT BEEN EDUCATED REGARDING HIS/HER PLAN OF CARE?YES HAS THE PATIENT BEEN EDUCATED REGARDING PAIN, THE RISK FOR PAIN, THE IMPORTANCE OF EFFECTIVE PAIN MANAGEMENT, AND THE PAIN ASSESSMENT PROCESS?YES ADVANCE DIRECTIVE ADVANCE DIRECTIVE DISCUSSED WITH PATIENT:YES PT STATES SHE HAS A HEALTH CARE PROXY-RAH ROSARIO [phone] HOSPITALIZATION/MAJOR DIAGNOSTIC PROCEDURE SURGICAL RELATED REVIEW OF SYSTEMS CONSTITUTIONAL: ANY RECENT FEVER NO . CHILLS NO . WEIGHT CHANGE OF UNKNOWN REASONS NO . GASTROENTEROLOGY: NEW UNEXPLAINABLE CHANGES IN BOWEL CONTROL NO . CONSTIPATION NO . GENITOURINARY: ANY NEW CHANGE IN BLADDER CONTROL? NO . NEUROLOGY: NEW ONSET DIZZINESS OR NEUROLOGICAL CHANGES NOT MENTIONED NO . NEW NUMBNESS OR PAIN PATTERNS NOT MENTIONED AND PERTINENT TO TODAY'S VISIT NO . CARDIOLOGY: NEW CHEST PRESSURE NO . PATIENT DENIES NO . RESPIRATORY: UNEXPLAINABLE COUGH NO . NEW SHORTNESS OF BREATH NO . VITAL SIGNS WT 125 LBS, HT 64 IN, BMI 21.45 INDEX, BP 126/55 MM HG, HR 85 /MIN, RR 18 /MIN, TEMP 98.3 F, OXYGEN SAT % 96%, SAFE IN ENV? (Y/N) YEST.CARYN CORLEY. EXAMINATION GENERAL EXAMINATION: GENERAL AWAKE,ALERT ,PLEASANT . PSYCH AFFECT NORMAL . LUNGS: LUNG LINDSEY ARE CLEAR TO AUSCULTATION BILATERALLY. GOOD MOVEMENT OF AIR . HEART: S1, S2 IN A REGULAR RATE AND RHYTHM. NO SIGNIFICANT MURMURS, RUBS OR GALLOPS NOTED . MUSCULOSKELETAL: MUSCLE STRENGTH TESTING 5/5 BILATERAL LOWER EXTREMITIES. LUMBAR: PALPATION: + FOR PAIN OVER L/S SPINE. + FOR PAIN OVER L/S PARASPINALS WELL-HEALED SURGICAL SCAR L/S AXIS. DIAGNOSTIC TESTS REVIEWEDMRI L/S SPINE . 06/2019. ASSESSMENTS SPONDYLOSIS WITHOUT MYELOPATHY OR RADICULOPATHY, LUMBAR REGION - M47.816 (PRIMARY) OTHER CHRONIC PAIN - G89.29 POST LAMINECTOMY SYNDROME - M96.1 TREATMENT SPONDYLOSIS WITHOUT MYELOPATHY OR RADICULOPATHY, LUMBAR REGION NOTES: BILATERAL DIAGNOSTIC LUMBAR FACET BLOCK L4-5,L5-S1 PRINTED AND REVIEWED PRE PROCEDURE WITH PATIENT EZEKIEL CORLEY. OTHER CHRONIC PAIN PAIN PROCEDURE LOGDATE OF PROCEDURE1PROCEDURE:BILATERAL DIAGNOSTIC LUMBAR FACET BLOCK #1 L4-L5,L5-J3GJAGGT OF PRE SEDATE0/0RESULT:GREATER THAN 80% REDUCTION IN PAIN FOR SEVERAL HOURS POSTPROCEDURESLUIS SANTOS 07/28/2020 5:14:14 PM > ANDREA, CAN YOU PLEASE PUT THE PROCEDURE RESULTS IN THIS PROCEDURE LOG? THANKS. PROCEDURE CODES FA211 ESTABILISHED PATIENT [facility] FACILITY CHARGE DISPOSITION & COMMUNICATION FOLLOW UP POST PROCEDURE (REASON: BILATERAL DIAGNOSTIC LUMBAR FACET BLOCK L4-5,L5-S1) ELECTRONICALLY SIGNED BY CARIDAD HENLEY ON 07/30/2020 AT 12:37 PM EDT DISCLAIMER : THIS IS A VISIT SUMMARY EXTRACTED FROM THE [employer] CHART. IT IS NOT A COPY OF THE [employer] PROGRESS NOTE. ZINA
== END ==
LOC: M PAIN 10:30
PROVIDERS: ATTEND Nurse Practitioner Family
DX: G89.29 Other chronic pain (principal); M47.816 Spondylosis without myelopathy or radiculopathy, lumbar region; M96.1 Postlaminectomy syndrome, not elsewhere classified; F41.9 Anxiety disorder, unspecified; M79.7 Fibromyalgia; K21.9 Gastro-esophageal reflux disease without esophagitis; E78.5 Hyperlipidemia, unspecified; E55.9 Vitamin D deficiency, unspecified; K58.0 Irritable bowel syndrome with diarrhea; G47.00 Insomnia, unspecified; F17.210 Nicotine dependence, cigarettes, uncomplicated; Z79.891 Long term (current) use of opiate analgesic; Z79.899 Other long term (current) drug therapy; Z88.2 Allergy status to sulfonamides; Z88.8 Allergy status to other drugs, medicaments and biological substances

== ENCOUNTER → 2020-08-14 | Outpatient (CLI) | payer MEDICARE | LOC: M LABSMTC 10:37 | PROVIDERS: ATTEND Anesthesiology | DX: Z20.822 Contact with and (suspected) exposure to COVID-19 (principal) ==

== ENCOUNTER → 2020-08-19 | Outpatient (CLI) | payer MEDICARE ==
[~2020-08-19] MED LIST changes: +BUPIVACAINE HCL 0.25% 30ML VIAL As Ordered ONE; +ISOVUE-M 300 61% 15ML VIAL As Ordered ONE; +LIDOCAINE 1% SDV 30ML VIAL As Ordered ONE
--- NOTE | 2020-08-20 00:16 | ECWPNPC ---
PATIENT NAME: LOGAN CRAVEN : 1960 GENDER: FEMALE VISIT DATE: 08/19/2020 DISCHARGE DATE: 08/19/20 1046 VISIT LOCKED DATE TIME: PHYSICIAN: KENDRA CRAFT MD PHYSICIAN PAGER NO: ACTIVE RESOURCE: KENDRA CRAFT MD REASON FOR APPOINTMENT 1. FOLLOW UP HISTORY OF PRESENT ILLNESS GENERAL: 59-YEAR-OLD FEMALE PATIENT WITH A HISTORY OF CHRONIC LOW BACK PAIN. THE PATIENT DESCRIBES THE PAIN CONTINUOUS, SHARP AND TENDER WITH A PAIN SCORE RANGING FROM 7-10/10. THE PATIENT HAS A HISTORY OF A BACK SURGERY. I DISCUSSED ALTERNATIVES WITH THE PATIENT. WE AGREE ON DOING DIAGNOSTIC TESTS TO CONSIDER RADIOFREQUENCY. THIS PAIN AFFECTS HER ABILITY TO DO ACTIVITIES SUCH CLEANING HER HOUSE AND MOVING AROUND HER HOUSE. FALL RISK SCREENING: SCREENING : NO FALLS REPORTED IN THE LAST YEAR.. PAIN SCREENING: PATIENT HAS A COMPLAINT OF ACUTE OR CHRONIC PAIN :YES LOCATION OF PAIN:LOW BACK, LEG(S) INTENSITY OF PAIN (SCALE OF 1 TO 10):8 WHAT DOES YOUR PAIN FEEL LIKE:CONTINOUS, SHARP, TENDER, SHOOTING "JUST CONSTANT PAIN" DURATION:CONTINOUS, AWAKENS FROM SLEEP PAIN IS INCREASED BY:ACTIVITIES, PROLONGED STANDING PAIN IS DECREASED BY:USE OF PAIN MEDICATIONS, OTHERS REST, HOME EXERCISE PROGRAM PAIN HAS INTERFERED WITH THE FOLLOWING: INTERFERES WITH ALL ADLS PLAN/GOALS/TREATMENT/INTERVENTION/FOLLOW UP:SEE PLAN NURSING NOTE: -. PAIN CENTER INTAKE QUESTIONS: DO YOU HAVE A HISTORY OF MRSA? :NO DO YOU TAKE A BLOOD THINNERS? :NO DO YOU HAVE ANY BLEEDING DISORDERS? :NO ANY NEW NUMBNESS OR WEAKNESS IN YOUR LEGS OR ARMS? :NO ANY PACEMAKER,DEFIBRILLATOR, OR DORSAL COLUMN STIMULATOR? :NO DO YOU HAVE ANY RASHES OR OPEN SORES? :NO ARE YOU ALLERGIC TO IV DYE? :NO ARE YOU DIABETIC? :NO ANY NEW PROBLEMS WITH YOUR MEDICATIONS? :NO HAVE YOU RECEIVED A VACCINE IN THE PAST 30 DAYS? :NO DO YOU PLAN TO RECEIVE A VACCINE IN THE NEXT 21 DAYS? :NO DO YOU TAKE ANY IMMUNOSUPPRESSIVE MEDICATIONS? :YES ELMIRON (LAST DOSE: 08/13/20) ANY HISTORY OF SEIZURES? :NO ANY HISTORY OF CARDIAC ISSUES OR EVENTS? :NO DO YOU HAVE ANY KIDNEY OR LIVER DISEASE? :NO DO YOU HAVE SLEEP APNEA? :NO ANY RECENT HEAD INJURY? :NO DO YOU HAVE ANY NEW INFECTIONS? :NO IS THERE A CHANCE YOU COULD BE ? :N/A ARE YOU BREAST FEEDING? :NO WHEN DID YOU LAST EAT? : 08/18/20 1600 WHEN DID YOU LAST DRINK? : 08/19/20 0800 WHAT DID YOU LAST DRINK? : WATER NAME OF PERSON DRIVING YOU HOME? : KATIE CRAVEN () DO YOU HAVE ANY OTHER QUESTIONS OR CONCERNS? : NO CURRENT MEDICATIONS TAKING VITAMIN D 2000 UNIT CAPSULE 1 TABLET ORALLY ONCE A DAY TAKING CANE . MISCELLANEOUS QUAD CANE _ QD R27 TAKING CALCIUM 600 + D 600-400 MG-UNIT TABLET 1 TABLET ORALLY ONCE A DAY TAKING ELMIRON 100 MG CAPSULE 1 CAPSULE ON AN EMPTY STOMACH 1 TABLET THREE A DAY, NOTES: 08/13/20 TAKING LEFLUNOMIDE 20 MG TABLET 1 TABLET ORALLY ONCE A DAY, NOTES: 08/18/202129 TAKING ENBREL SURECLICK 50 MG/ML SOLUTION AUTO-INJECTOR DIRECTED SUBCUTANEOUS ONCE A WEEK, NOTES: 08/15/20 TAKING CYANOCOBALAMIN 500 MCG TABLET 1 TABLET ORALLY 1 EVERY 5 DAYS, NOTES: VITAMIN B12 TAKING ATORVASTATIN CALCIUM 20 MG TABLET 1 TABLET ORALLY ONCE A DAY TAKING FISH OIL 1000 MG CAPSULE 1 CAPSULE ORALLY ONCE A DAY TAKING ESCITALOPRAM OXALATE 10 MG TABLET 15MG 1.5 TABLET ORALLY ONCE A DAY TAKING ESOMEPRAZOLE MAGNESIUM 40 MG CAPSULE DELAYED RELEASE 1 CAPSULE ORALLY AC BID TAKING CARAFATE 1 GM TABLET 1 TABLET ON AN EMPTY STOMACH ORALLY AC TID TAKING CARISOPRODOL 350 MG TABLET 1 TABLET NEEDED ORALLY TID PRN, MDD 3, NOTES: 08/19/20 08 TAKING HYDROCODONE-ACETAMINOPHEN 5-325 MG TABLET 1 TABLET NEEDED ORALLY TID PRN MDD = 3, NOTES: 08/19/20 0800 MEDICATION LIST REVIEWED AND RECONCILED WITH THE PATIENT PAST MEDICAL HISTORY RA/OSTEOARTHRITIS/FIBROMYALGIA NICOTINE ADDICTION-08/2011 FEV1 2.5L (101%)/RATIO 97%-1 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 GERD/DYSPEPSIA-06/2016 NORMAL EGD/COLON/SB CAPSULE-R HYPERLIPIDEMIA 2B ENDOMETRIOSIS 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 SPENCER 2008 FOLLOWS WITH WOMAN TO WOMAN HISTORY OF TUBULAR ADENOMA-NORMAL COLONOSCOPY APRIL 2009 NORMAL COLONOSCOPY C - RANDOM BIOPSIES-[place] COLONOSCOPY 07/18/16 REINDL 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 BARAJAS, 01/2014 FILLED OUT LTD PAPERWORK FOR GUARDIAN-PATIENT DEFERRED WCE INSOMNIA, COOMORBID ANXIETY OCULAR SURFACE DISEASE ALLERGIES METHOTREXATE (ANTI-RHEUMATIC): MIGRANES - SIDE EFFECTS CYMBALTA: RACING PLUSE, SHAKES - ALLERGY WELLBUTRIN: PALPITATIONS, SEVERE - ALLERGY SULFA (FOR ALLERGY USE ONLY): NAUSEA/VOMITING - ALLERGY LYRICA: PALPITATIONS - ALLERGY CELEXA: PALPITATIONS - SIDE EFFECTS ORENCIA: ANAPHYLAXIS - ALLERGY TOPICAL ALOE VERA: SEVERE ITCHING - ALLERGY CANNOT TOLERATE ASA BASED PRODUCTS/ NSAIDS: HX STOMACH BLEED - CONTRAINDICATION REVIEW OF SYSTEMS CONSTITUTIONAL: ANY RECENT FEVER NO . CHILLS NO . WEIGHT CHANGE OF UNKNOWN REASONS NO . GASTROENTEROLOGY: NEW UNEXPLAINABLE CHANGES IN BOWEL CONTROL NO . CONSTIPATION NO . GENITOURINARY: ANY NEW CHANGE IN BLADDER CONTROL? NO . NEUROLOGY: NEW ONSET DIZZINESS OR NEUROLOGICAL CHANGES NOT MENTIONED NO . NEW NUMBNESS OR PAIN PATTERNS NOT MENTIONED AND PERTINENT TO TODAY'S VISIT NO . CARDIOLOGY: NEW CHEST PRESSURE NO . PATIENT DENIES NO . RESPIRATORY: UNEXPLAINABLE COUGH NO . NEW SHORTNESS OF BREATH NO . VITAL SIGNS WT 126.4 LBS, HT 64 IN, BMI 21.69 INDEX, BP 134/60 MM HG, HR 83 /MIN, RR 18 /MIN, TEMP 97.3 F, OXYGEN SAT % 95%, NA INITIALS AW 0955. EXAMINATION GENERAL: THE PATIENT IS ALERT, ORIENTED TIMES THREE AND COOPERATIVE. MRI OF THE LUMBOSACRAL SPINE DATED 07/12/2019 SHOWS A FUSION AT L4-L5 AND DEGENERATIVE CHANGES. 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 WE AGREE ON DOING A DIAGNOSTIC FACET BLOCK BUT THE PATIENT EXPRESSED THAT SHE WAS NOT INFORMED TO NOT TAKE HER MEDICATIONS BEFORE THE PROCEDURE. SHE USED HER HYDROCODONE AND SOMA THIS MORNING ABOUT 2 HOURS AGO. IN VIEW OF THIS, THIS WILL NOT BE A RELIABLE TEST SO WE AGREED TO RESCHEDULE THIS PROCEDURE. THE PATIENT REPORTS UNDERSTANDING AND AGREES. I, CHINYERE AMARO, DOCUMENTED THE ABOVE INFORMATION ACTING A SCRIBE FOR DR. CRAFT. I HAVE REVIEWED THE ABOVE DOCUMENT, WRITTEN BY CHINYERE AMARO, GRAIN FARMER, AND I VERIFY THAT IT IS ACCURATE. PROCEDURE CODES FA211 ESTABILISHED PATIENT [facility] CHARGE DISPOSITION & COMMUNICATION FOLLOW UP RESCHEULE PROCEDURE TO 08/24 AT 830 (REASON: BILATERAL DIAGNSOTIC LUMBAR FACET BLOCK L4-L5, L5-S1) ELECTRONICALLY SIGNED BY KENDRA CRAFT MD, MD ON 08/19/2020 AT 06:17 PM EDT DISCLAIMER : THIS IS A VISIT SUMMARY EXTRACTED FROM THE [employer] CHART. IT IS NOT A COPY OF THE [employer] PROGRESS NOTE. ZINA
== END ==
LOC: M PAIN 10:00
PROVIDERS: ATTEND Anesthesiology
DX: M47.816 Spondylosis without myelopathy or radiculopathy, lumbar region (principal); M06.9 Rheumatoid arthritis, unspecified; M79.7 Fibromyalgia; K21.9 Gastro-esophageal reflux disease without esophagitis; E55.9 Vitamin D deficiency, unspecified; K58.0 Irritable bowel syndrome with diarrhea; F41.9 Anxiety disorder, unspecified; Z88.2 Allergy status to sulfonamides; Z88.8 Allergy status to other drugs, medicaments and biological substances; Z79.891 Long term (current) use of opiate analgesic; Z79.899 Other long term (current) drug therapy

== ENCOUNTER → 2020-08-19 | Outpatient (CLI) | payer MEDICARE ==
[~2020-08-19] MED LIST changes: -BUPIVACAINE HCL 0.25% 30ML VIAL As Ordered ONE; -ISOVUE-M 300 61% 15ML VIAL As Ordered ONE; -LIDOCAINE 1% SDV 30ML VIAL As Ordered ONE
== END ==
LOC: M LABSMTC 14:10
PROVIDERS: ATTEND Anesthesiology
DX: Z01.818 Encounter for other preprocedural examination (principal); Z11.52 Encounter for screening for COVID-19

== ENCOUNTER → 2020-09-02 | Outpatient (CLI) | payer MEDICARE ==
--- NOTE | 2020-09-07 05:21 | ECWPNPC ---
PATIENT NAME: LOGAN CRAVEN : 1960 GENDER: FEMALE VISIT DATE: 09/02/2020 DISCHARGE DATE: 09/02/20 1139 VISIT LOCKED DATE TIME: PHYSICIAN: ANDREA ELIAS PHYSICIAN PAGER NO: ACTIVE RESOURCE: ANDREA ELIAS REASON FOR APPOINTMENT 1. POST BILATERAL DIAGNOSTIC LUMBAR FACET BLOCK L4-5,L5-S1 HISTORY OF PRESENT ILLNESS DEPRESSION SCREENING: PHQ-2 (2015 EDITION) LITTLE INTEREST OR PLEASURE IN DOING THINGS?NOT AT ALL FEELING DOWN, DEPRESSED, OR HOPELESS?SEVERAL DAYS TOTAL SCORE1 GENERAL: HERE FOR POST PROCEDURE F/U.HAD LFBDX #1 AT HER LAST VISIT.APPARENTLY SHE TOOK PAIN MEDICATION PRIOR TO PREVIOUS LFBDX SO RESULTS WERE NEGATED DUE TO THIS.NOW WE HAVE TO PURSUE LFBDX #2.REVIEWED HOURLY PAIN DIARY POST MOST RECENT DIAGNOSTIC BLOCK.THIS IS SHOWING >80% REDUCTION IN PAIN FOR 10 HOURS THEN PAIN RETURNED TO BASELINE.SHE IS ON A IMMUNOSUPPRESANT THAT HAS A SIDE EFFECT OF INCREASED BLEEDING AND NEEDS TO BE STOPPED PER PROTOCOL.SHE IS CONFUSED WITH MEDICATIONS TO HOLD IN REGARDS TO PAIN MEDICATIONS AND IMMUNOSUPPRESSANTS SO WE WENT OVER THIS CAREFULLY TODAY. -. FALL RISK SCREENING: SCREENING : NO FALLS REPORTED IN THE LAST YEAR. PAIN SCREENING: PATIENT HAS A COMPLAINT OF ACUTE OR CHRONIC PAIN :YES LOCATION OF PAIN:LOW BACK INTENSITY OF PAIN (SCALE OF 1 TO 10):7 WHAT DOES YOUR PAIN FEEL LIKE:CONTINOUS, SHARP DURATION:CONTINOUS, CONSTANT, ALL DAY PAIN IS INCREASED BY:ACTIVITIES, PROLONGED STANDING PAIN IS DECREASED BY:USE OF PAIN MEDICATIONS NURSING NOTE: -. PAIN CENTER INTAKE QUESTIONS: DO YOU HAVE A HISTORY OF MRSA? :NO DO YOU TAKE A BLOOD THINNERS? :YES ELMIRON 5 DAYS BEFORE PROCEDURE AND RESTART THE NEXT DAY DO YOU HAVE ANY BLEEDING DISORDERS? :NO ANY NEW NUMBNESS OR WEAKNESS IN YOUR LEGS OR ARMS? :YES PAIN GOES DOWN THE BACK OF LEG, DOWN INTO ANKLES AND OUTSIDE OF LEG ANY PACEMAKER,DEFIBRILLATOR, OR DORSAL COLUMN STIMULATOR? :NO DO YOU HAVE ANY RASHES OR OPEN SORES? :NO ARE YOU ALLERGIC TO IV DYE? :NO ARE YOU DIABETIC? :NO ANY NEW PROBLEMS WITH YOUR MEDICATIONS? :NO HAVE YOU RECEIVED A VACCINE IN THE PAST 30 DAYS? :NO DO YOU PLAN TO RECEIVE A VACCINE IN THE NEXT 21 DAYS? :NO DO YOU NEED ANY PRESCRIPTION? :NO DO YOU TAKE ANY IMMUNOSUPPRESSIVE MEDICATIONS? :YES LEFLUNOMIDE AND ENBREL (18-10 DAYS BEFORE PROCEDURE AND 10-4DAYS AFTER PROCEDURE }SURECLICK AND ELMIRON IS THERE A CHANCE YOU COULD BE ? :NO ARE YOU BREAST FEEDING? :NO CURRENT MEDICATIONS TAKING FISH OIL 1000 MG CAPSULE 1 CAPSULE ORALLY ONCE A DAY TAKING ESOMEPRAZOLE MAGNESIUM 40 MG CAPSULE DELAYED RELEASE 1 CAPSULE ORALLY AC BID TAKING CARAFATE 1 GM TABLET 1 TABLET ON AN EMPTY STOMACH ORALLY AC TID TAKING VITAMIN D 2000 UNIT CAPSULE 1 TABLET ORALLY ONCE A DAY TAKING CANE . MISCELLANEOUS QUAD CANE _ QD R27 TAKING CALCIUM 600 + D 600-400 MG-UNIT TABLET 1 TABLET ORALLY ONCE A DAY TAKING CARAFATE 1 GM TABLET 1 TABLET ON AN EMPTY STOMACH ORALLY AC TID TAKING HYDROCODONE-ACETAMINOPHEN 5-325 MG TABLET 1 TABLET NEEDED ORALLY TID PRN MDD = 3 TAKING CARISOPRODOL 350 MG TABLET 1 TABLET NEEDED ORALLY TID PRN, MDD 3 TAKING ELMIRON 100 MG CAPSULE 1 CAPSULE ON AN EMPTY STOMACH 1 TABLET THREE A DAY TAKING ATORVASTATIN CALCIUM 20 MG TABLET 1 TABLET ORALLY ONCE A DAY TAKING LEFLUNOMIDE 20 MG TABLET 1 TABLET ORALLY ONCE A DAY TAKING ENBREL SURECLICK 50 MG/ML SOLUTION AUTO-INJECTOR DIRECTED SUBCUTANEOUS ONCE A WEEK TAKING CYANOCOBALAMIN 500 MCG TABLET 1 TABLET ORALLY 1 EVERY 5 DAYS TAKING ESCITALOPRAM OXALATE 10 MG TABLET 15MG 1.5 TABLET ORALLY ONCE A DAY TAKING WELCHOL 625 MG TABLET 1 TAB ORALLY TWICE A DAY SYDNEY NOT-TAKING ESOMEPRAZOLE MAGNESIUM 40 MG CAPSULE DELAYED RELEASE 1 CAPSULE ORALLY AC BID MEDICATION LIST REVIEWED AND RECONCILED WITH THE PATIENT PAST MEDICAL HISTORY RA/OSTEOARTHRITIS/FIBROMYALGIA NICOTINE ADDICTION-08/2011 FEV1 2.5L (101%)/RATIO 97%-1 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 GERD/DYSPEPSIA-06/2016 NORMAL EGD/COLON/SB CAPSULE-R HYPERLIPIDEMIA 2B ENDOMETRIOSIS 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 SPENCER 2008 FOLLOWS WITH WOMAN TO WOMAN HISTORY OF TUBULAR ADENOMA-NORMAL COLONOSCOPY APRIL 2009 NORMAL COLONOSCOPY C - RANDOM BIOPSIES-[place] COLONOSCOPY 07/18/16 REINDL CERVICAL DJD STATUS POST MULTILEVEL FUSION-01/2010 MRI STABLE ACDF C BASELINE DJD ATROPHIC VAGINITIS OSTEOPENIA VITAMIN D DEFICIENCY CHRONIC SINUSITIS RECURRENT UTI CHRONIC DIARRHEA STATUS POST LAPAROSCOPIC CHOLECYSTECTOMY JULY 2009//[id number] CHRONIC DRY EYES MEMORY LOSS 2 INSOMNIA, WORK STRESS-12/2011 NORMAL MRI BRAIN S AND NORMAL WORKUP LUMBAR DJD-L2/3 BULGE C L IF HNP C L L2 COMPRESSION, L3/4 SEVERE CCS C B L3 COMPRESSION BY 03/2017 MRI LONG-TERM DISABILITY-TAKEN OOW 08/05/[address] BARAJAS, 01/2014 FILLED OUT LTD PAPERWORK FOR GUARDIAN-PATIENT DEFERRED WCE CHRONIC MDD/PD/INSOMNIA, COOMORBID ALLERGIES METHOTREXATE (ANTI-RHEUMATIC): MIGRANES - SIDE EFFECTS CYMBALTA: RACING PLUSE, SHAKES - ALLERGY WELLBUTRIN: PALPITATIONS, SEVERE - ALLERGY SULFA (FOR ALLERGY USE ONLY): NAUSEA/VOMITING - ALLERGY LYRICA: PALPITATIONS - ALLERGY CELEXA: PALPITATIONS - SIDE EFFECTS ORENCIA: ANAPHYLAXIS - ALLERGY TOPICAL ALOE VERA: SEVERE ITCHING - ALLERGY CANNOT TOLERATE ASA BASED PRODUCTS/ NSAIDS: HX STOMACH BLEED - CONTRAINDICATION SOCIAL HISTORY GENERAL: TOBACCO USE ARE YOU A:CURRENT SMOKER ARE YOU INTERESTED IN QUITTING?THINKING ABOUT QUITTING PREVIOUS QUIT ATTEMPTS?NO. COUNSELED THE PATIENT ON SMOKING CESSATION, EDUCATION [id number]/06/2021 ASSIST (PHARMACOTHERAPY AND COUNSELING)ADVISED TO CALL [facility] QUITLINE [phone] [facility]. ARRANGEADVISED TO CALL THE MEDICAL CENTER TOBACCO CESSATION HOW MANY CIGARETTES A DAY DO YOU SMOKE?5 OR LESS HOW SOON AFTER YOU WAKE UP DO YOU SMOKE YOUR FIRST CIGARETTE?AFTER 60 MIN HOW OFTEN DO YOU SMOKE CIGARETTES?EVERY DAY PATIENT COUNSELED ON THE DANGERS OF TOBACCO USE AND URGED TO QUIT:08/31/2020 VAPORNO E-CIGARETTENO LATEX QUESTIONNAIRE LATEX ALLERGY : HAVE YOU EVER DEVELOPED ANY TYPE OF REACTION AFTER HANDLING LATEX PRODUCTS SUCH RUBBER GLOVES, CONDOMS, DIAPHRAGMS, BALLOONS, SOCKS, OR UNDERWEAR?NO LATEX ALLERGY : HAVE YOU EVER DEVELOPED ANY TYPE OF REACTION DURING OR AFTER DENTAL APPOINTMENT, VAGINAL/RECTAL EXAMINATION, SURGICAL PROCEDURE, OR ANY OTHER EXPOSURE?NO LATEX RISK : HAVE YOU EVER HAD ANY DIFFICULTY BREATHING OR HIVES AFTER EATING OR HANDLING ANY FRUITS, OR VEGETABLES; SUCH KIWI, BANANAS, STONE FRUITS, OR CHESTNUTSNO LATEX RISK : DO YOU HAVE A PREVIOUS PERSONAL HISTORY OF MORE THAN NINE SURGERIES, SPINA BIFIDA, OR REPEATED CATHERIZATIONS? YES LATEX RISK : ARE YOU FREQUENTLY EXPOSED TO LATEX PRODUCTS IN YOUR OCCUPATION?NO DATE ASKED : 09/02/2020 ALCOHOL USE: NO, ONCE EVERY 4 MONTH. ALCOHOL SCREENING DID YOU HAVE A DRINK CONTAINING ALCOHOL IN THE PAST YEAR?YES HOW OFTEN DID YOU HAVE A DRINK CONTAINING ALCOHOL IN THE PAST YEAR?MONTHLY OR LESS (1 POINT) POINTS1 INTERPRETATIONNEGATIVE RECREATIONAL DRUG USE DRUG USE?NO CAFFEINE CAFFEINE USE?YES 2-3 DAILY SEXUAL HX HAD SEX IN THE LAST 12 MONTHS (VAGINAL, ORAL, OR ANAL)?NO HAVE YOU EVER HAD AN STD?NO HIV / HEP-C SCREENING HIV TEST OFFERED TO PATIENT:YES DATE OFFERED:06/28/2017 TEST ACCEPTED:NO HEP-C TEST OFFERED TO PATIENT:YES DATE OFFERED:06/28/2017 REASON:PATIENT DECLINED TEST ACCEPTED:NO REASON:PATIENT DECLINED RESTORATIONIST [id number] NONE NO RELIGION BELIEFS THAT WOULD IMPACT HEALTH CARE. LANGUAGE LANGUAGES SPOKEN:GABONESE EDUCATION LEVEL OF EDUCATION:HIGH SCHOOL GED LEARNING BARRIERS / SPECIAL NEEDS CHANGE FROM LAST VISIT?NO BARRIERS TO LEARNING?NO HEARING IMPAIRED?NO TINITUS VISION IMPAIRED?YES :CORRECTIVE LENSES COGNITIVELY IMPAIRED?NO READINESS TO LEARN?YES LEARNING PREFERENCES?NO LEARNING CAPABILITIES PRESENT?YES EMOTIONAL BARRIERS?NO SPECIAL DEVICES?YES :CANE NEEDED STYLIST ASSISTANT NEEDED?NO DOMESTIC VIOLENCE DO YOU FEEL SAFE IN YOUR ENVIRONMENT?YES OCCUPATION: DISABLED. DIET: AVOIDS GREASY, FRIED FOODS, DAIRY.TRIES TO EAT SMALLER PORTIONS. EXERCISE: LOWER BACK EXERCISES, WALKS TOLERATED. MARITAL STATUS: .. OTHERS AT HOME: DAUGHTER. - PFS REFERRAL NEEDED?NO CLERGY REFERRAL NEEDED?NO PUBLIC HEALTH REFERRAL NEEDED?NO HAS THE PATIENT BEEN EDUCATED REGARDING HIS/HER PLAN OF CARE?YES HAS THE PATIENT BEEN EDUCATED REGARDING PAIN, THE RISK FOR PAIN, THE IMPORTANCE OF EFFECTIVE PAIN MANAGEMENT, AND THE PAIN ASSESSMENT PROCESS?YES ADVANCE DIRECTIVE ADVANCE DIRECTIVE DISCUSSED WITH PATIENT:YES PT STATES SHE HAS A HEALTH CARE PROXY-RAH VASQUEZAPP [phone] REVIEW OF SYSTEMS CONSTITUTIONAL: ANY RECENT FEVER NO . CHILLS NO . WEIGHT CHANGE OF UNKNOWN REASONS NO . GASTROENTEROLOGY: NEW UNEXPLAINABLE CHANGES IN BOWEL CONTROL NO . CONSTIPATION NO . GENITOURINARY: ANY NEW CHANGE IN BLADDER CONTROL? NO . NEUROLOGY: NEW ONSET DIZZINESS OR NEUROLOGICAL CHANGES NOT MENTIONED NO . NEW NUMBNESS OR PAIN PATTERNS NOT MENTIONED AND PERTINENT TO TODAY'S VISIT NO . CARDIOLOGY: NEW CHEST PRESSURE NO . PATIENT DENIES NO . RESPIRATORY: UNEXPLAINABLE COUGH NO . NEW SHORTNESS OF BREATH NO . VITAL SIGNS WT 127.0 LBS, HT 64 IN, BMI 21.80 INDEX, BP 139/60 MM HG, HR 76 /MIN, RR 18 /MIN, TEMP 98.0 F, OXYGEN SAT % 98.0, SAFE IN ENV? (Y/N) YES, NA INITIALS SC 10:40T.CARYN CORLEY. EXAMINATION GENERAL EXAMINATION: GENERAL AWAKE,ALERT ,PLEASANT . PSYCH AFFECT NORMAL . LUNGS: LUNG LINDSEY ARE CLEAR TO AUSCULTATION BILATERALLY. GOOD MOVEMENT OF AIR . HEART: S1, S2 IN A REGULAR RATE AND RHYTHM. NO SIGNIFICANT MURMURS, RUBS OR GALLOPS NOTED . LUMBAR: PALPATION: + FOR PAIN OVER L/S SPINE. + FOR PAIN OVER L/S PARASPINALS SPECIFIC POINT TENDERNESS OVER L4-5,L5-S1 LUMBAR FACETS WITH FACET LOADING. NEUROLOGIC EXAM: NORMAL SENSATION LIGHT TOUCH BILAT. LOWER EXTREMITIES . ASSESSMENTS SPONDYLOSIS WITHOUT MYELOPATHY OR RADICULOPATHY, LUMBAR REGION - M47.816 (PRIMARY) OTHER CHRONIC PAIN - G89.29 POST LAMINECTOMY SYNDROME - M96.1 TREATMENT SPONDYLOSIS WITHOUT MYELOPATHY OR RADICULOPATHY, LUMBAR REGION NOTES: DO NOT HOLD MEDICATIONS FOR RHEUMATOID ARTHRITIS-LEFLUNOMIDE,ENBREL FOR DIAGNOSTIC TESTING -LUMBAR FACET BLOCK DIAGNOSTIC TEST SCHEDULED FOR YOUR NEXT VISIT. HOLD SOMA AND HYDROCODONE AT 12 MIDNIGHT NIGHT BEFORE PROCEDURE AND START AFTER PROCEDURE 48HRS IF NEEDED FOR YOUR NEXT DIAGNOSTIC LUMBAR FACET BLOCK ELMIRON A DRUG YOU TAKE FOR RHEUMATOID ARTHRITIS HAS BLOOD THINING SIDE EFFECT THAT REQUIRES IT BE HELD FOR 5 DAYS BEFORE ANY INJECTIONS HERE.WE WILL SEND A REQUEST TO TO HOLD THIS FOR 5 DAYS AND CONTACT YOU ONCE THIS IS RECIEVED TO SCHEDULE PROCEDURE BILATERAL DIAGNOSTIC LUMBAR FACET BLOCK #2 L4-5,L5-S1 PRINTED PRE PROCEDURE INFORMATION, PATIENT VERBALIZED UNDERSTANDING EZEKIEL CORLEY. OTHER CHRONIC PAIN PAIN PROCEDURE LOGDATE OF PROCEDURE1PROCEDURE:BILATERAL DIAGNOSTIC LUMBAR FACET BLOCK #1 L4-L5,L5-X2QLPCSP OF PRE SEDATE0/0RESULT:MARKED REDUCTION IN PAIN X10 HRS POST PROCEDURE PROCEDURE CODES FA211 ESTABILISHED PATIENT [facility] FACILITY CHARGE DISPOSITION & COMMUNICATION FOLLOW UP POST PROC (REASON: MED HOLD BILATERAL DIAGNOSTIC LUMBAR FACET BLOCK #2 L4-5,L5-S1) ELECTRONICALLY SIGNED BY CARIDAD HELNEY ON 09/06/2020 AT 08:35 PM EDT DISCLAIMER : THIS IS A VISIT SUMMARY EXTRACTED FROM THE [employer] CHART. IT IS NOT A COPY OF THE [employer] PROGRESS NOTE. ZINA
== END ==
LOC: M PAIN 10:30
PROVIDERS: ATTEND Nurse Practitioner Family
DX: G89.29 Other chronic pain (principal); M47.816 Spondylosis without myelopathy or radiculopathy, lumbar region; M96.1 Postlaminectomy syndrome, not elsewhere classified; M79.7 Fibromyalgia; K21.9 Gastro-esophageal reflux disease without esophagitis; E78.5 Hyperlipidemia, unspecified; N95.2 Postmenopausal atrophic vaginitis; E55.9 Vitamin D deficiency, unspecified; F32.9 Major depressive disorder, single episode, unspecified; F17.210 Nicotine dependence, cigarettes, uncomplicated; Z79.891 Long term (current) use of opiate analgesic; Z79.899 Other long term (current) drug therapy; Z88.2 Allergy status to sulfonamides; Z88.8 Allergy status to other drugs, medicaments and biological substances; Z91.048 Other nonmedicinal substance allergy status; Z88.5 Allergy status to narcotic agent

== ENCOUNTER → 2020-09-18 | Outpatient (CLI) | payer MEDICARE | LOC: M LABSMTC 10:41 | PROVIDERS: ATTEND Anesthesiology | DX: Z01.812 Encounter for preprocedural laboratory examination (principal); Z20.822 Contact with and (suspected) exposure to COVID-19 ==

== ENCOUNTER → 2020-09-23 | Outpatient (CLI) | payer MEDICARE ==
[~2020-09-23] MED LIST changes: +BUPIVACAINE HCL 0.25% 30ML VIAL As Ordered ONE; +ISOVUE-M 300 61% 15ML VIAL As Ordered ONE; +LIDOCAINE 1% SDV 30ML VIAL As Ordered ONE
--- NOTE | 2020-09-23 10:16 | REP ---
INDICATION: CHRONIC LOW BACK PAIN. COMPARISON: None. TECHNIQUE: Intraoperative fluoroscopic imaging using portable C-arm technique FINDINGS: Catheters and contrast overlie the lumbar facet joints. Total fluoroscopic time 36.4 seconds. IMPRESSION: Findings consistent with lumbar facet block. <Electronically signed by John Uribe > 09/23/20 1018
--- NOTE | 2020-09-24 00:36 | ECWPNPC ---
PATIENT NAME: LOGAN CRAVEN : 1960 GENDER: FEMALE VISIT DATE: 09/23/2020 DISCHARGE DATE: 09/23/20 1026 VISIT LOCKED DATE TIME: PHYSICIAN: KENDRA CRAFT MD PHYSICIAN PAGER NO: ACTIVE RESOURCE: KENDRA CRAFT MD REASON FOR APPOINTMENT 1. BILATERAL DIAGNOSTIC LUMBAR FACET BLOCK #2 L4-L5,L5-S1 HISTORY OF PRESENT ILLNESS GENERAL: -. FALL RISK SCREENING: SCREENING : NO FALLS REPORTED IN THE LAST YEAR. PAIN SCREENING: PATIENT HAS A COMPLAINT OF ACUTE OR CHRONIC PAIN :YES LOCATION OF PAIN:LOW BACK, LEG(S), OTHER: BACK OF BOTH BUTTOCKS, BACK AND SIDES OF BOTH LEGS WITH RIGHT BEING WORSE INTENSITY OF PAIN (SCALE OF 1 TO 10):7 WHAT DOES YOUR PAIN FEEL LIKE:BURNING, CONTINOUS, SHARP, TENDER, SORE BURNING ON OUTER ASPECT OF LEGS. PAIN INTENSIFIES WITH ACTIVITY DURATION:CONTINOUS, CONSTANT, AWAKENS FROM SLEEP PAIN IS INCREASED BY:ACTIVITIES, OTHERS STANDING, WALKING AND PROLONGED SITTING PAIN IS DECREASED BY:OTHERS REST, HEAT, INJECTIONS-BUT THEY DON'T LAST LONG PAIN HAS INTERFERED WITH THE FOLLOWING: EVERYTHING NURSING NOTE: -. PAIN CENTER INTAKE QUESTIONS: DO YOU HAVE A HISTORY OF MRSA? :NO DO YOU TAKE A BLOOD THINNERS? :YES ELMIRON DO YOU HAVE ANY BLEEDING DISORDERS? :NO ANY NEW NUMBNESS OR WEAKNESS IN YOUR LEGS OR ARMS? :NO ANY PACEMAKER,DEFIBRILLATOR, OR DORSAL COLUMN STIMULATOR? :NO DO YOU HAVE ANY RASHES OR OPEN SORES? :NO ARE YOU ALLERGIC TO IV DYE? :NO ARE YOU DIABETIC? :NO ANY NEW PROBLEMS WITH YOUR MEDICATIONS? :NO HAVE YOU RECEIVED A VACCINE IN THE PAST 30 DAYS? :NO DO YOU PLAN TO RECEIVE A VACCINE IN THE NEXT 21 DAYS? :NO DO YOU TAKE ANY IMMUNOSUPPRESSIVE MEDICATIONS? :YES ENBREL, LEFLUNAMIDE ANY HISTORY OF SEIZURES? :NO ANY HISTORY OF CARDIAC ISSUES OR EVENTS? :YES HEART PALPITATIONS DUE TO WELBUTRIN DO YOU HAVE ANY KIDNEY OR LIVER DISEASE? :NO DO YOU HAVE SLEEP APNEA? :NO ANY RECENT HEAD INJURY? :NO DO YOU HAVE ANY NEW INFECTIONS? :NO IS THERE A CHANCE YOU COULD BE ? :NO ARE YOU BREAST FEEDING? :NO WHEN DID YOU LAST EAT? : -09/22/20@1700 WHEN DID YOU LAST DRINK? : -09/23/20 0630 WHAT DID YOU LAST DRINK? : -SIPS WATER WITH MEDS NAME OF PERSON DRIVING YOU HOME? : KATIE DO YOU HAVE ANY OTHER QUESTIONS OR CONCERNS? : NONE CURRENT MEDICATIONS TAKING FISH OIL 1000 MG CAPSULE 1 CAPSULE ORALLY ONCE A DAY TAKING ESOMEPRAZOLE MAGNESIUM 40 MG CAPSULE DELAYED RELEASE 1 CAPSULE ORALLY AC BID TAKING CARAFATE 1 GM TABLET 1 TABLET ON AN EMPTY STOMACH ORALLY AC TID TAKING CANE . MISCELLANEOUS QUAD CANE _ QD R27 TAKING CALCIUM 600 + D 600-400 MG-UNIT TABLET 1 TABLET ORALLY ONCE A DAY TAKING ATORVASTATIN CALCIUM 20 MG TABLET 1 TABLET ORALLY ONCE A DAY TAKING CYANOCOBALAMIN 500 MCG TABLET 1 TABLET ORALLY 1 EVERY 5 DAYS TAKING ESCITALOPRAM OXALATE 10 MG TABLET 15MG 1.5 TABLET ORALLY ONCE A DAY TAKING WELCHOL 625 MG TABLET 1 TAB ORALLY TWICE A DAY SYDNEY TAKING CARISOPRODOL 350 MG TABLET 1 TABLET NEEDED ORALLY TID PRN, MDD 3, NOTES: 09/22/20 @2200 TAKING HYDROCODONE-ACETAMINOPHEN 5-325 MG TABLET 1 TABLET NEEDED ORALLY TID PRN MDD = 3, NOTES: 09/22/20@2030 TAKING VITAMIN D-3 25 MCG (1000 UT) CAPSULE 2 CAPSULES ORALLY ONCE A DAY NOT-TAKING ELMIRON 100 MG CAPSULE 1 CAPSULE ON AN EMPTY STOMACH 1 TABLET THREE A DAY, NOTES: 09/18/20 NOT-TAKING LEFLUNOMIDE 20 MG TABLET 1 TABLET ORALLY ONCE A DAY, NOTES: 09/22/20 NOT-TAKING ENBREL SURECLICK 50 MG/ML SOLUTION AUTO-INJECTOR DIRECTED SUBCUTANEOUS ONCE A WEEK, NOTES: 09/18/20 NOT-TAKING VITAMIN D 2000 UNIT CAPSULE 1 TABLET ORALLY ONCE A DAY NOT-TAKING CARAFATE 1 GM TABLET 1 TABLET ON AN EMPTY STOMACH ORALLY AC TID NOT-TAKING ESOMEPRAZOLE MAGNESIUM 40 MG CAPSULE DELAYED RELEASE 1 CAPSULE ORALLY AC BID MEDICATION LIST REVIEWED AND RECONCILED WITH THE PATIENT PAST MEDICAL HISTORY RA/OSTEOARTHRITIS/FIBROMYALGIA NICOTINE ADDICTION-08/2011 FEV1 2.5L (101%)/RATIO 97%-1 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 GERD/DYSPEPSIA-06/2016 NORMAL EGD/COLON/SB CAPSULE-R HYPERLIPIDEMIA 2B ENDOMETRIOSIS 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 SPENCER 2008 FOLLOWS WITH WOMAN TO WOMAN HISTORY OF TUBULAR ADENOMA-NORMAL COLONOSCOPY APRIL 2009 NORMAL COLONOSCOPY C - RANDOM BIOPSIES-[place] COLONOSCOPY 07/18/16 REINDL 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 BARAJAS, 01/2014 FILLED OUT LTD PAPERWORK FOR GUARDIAN-PATIENT DEFERRED WCE CHRONIC MDD/PD/INSOMNIA, COOMORBID ALLERGIES METHOTREXATE (ANTI-RHEUMATIC): MIGRANES - SIDE EFFECTS CYMBALTA: RACING PLUSE, SHAKES - ALLERGY WELLBUTRIN: PALPITATIONS, SEVERE - ALLERGY SULFA (FOR ALLERGY USE ONLY): NAUSEA/VOMITING - ALLERGY LYRICA: PALPITATIONS - ALLERGY CELEXA: PALPITATIONS - SIDE EFFECTS ORENCIA: ANAPHYLAXIS - ALLERGY TOPICAL ALOE VERA: SEVERE ITCHING - ALLERGY CANNOT TOLERATE ASA BASED PRODUCTS/ NSAIDS: HX STOMACH BLEED - CONTRAINDICATION SOCIAL HISTORY GENERAL: TOBACCO USE ARE YOU A:CURRENT SMOKER ARE YOU INTERESTED IN QUITTING?THINKING ABOUT QUITTING PREVIOUS QUIT ATTEMPTS?NO. COUNSELED THE PATIENT ON SMOKING CESSATION, EDUCATION [id number]/06/2021 ASSIST (PHARMACOTHERAPY AND COUNSELING)ADVISED TO CALL [facility] QUITLINE 1(145) [facility] ARRANGEADVISED TO CALL [facility] TOBACCO CESSATION HOW MANY CIGARETTES A DAY DO YOU SMOKE?5 OR LESS HOW SOON AFTER YOU WAKE UP DO YOU SMOKE YOUR FIRST CIGARETTE?AFTER 60 MIN HOW OFTEN DO YOU SMOKE CIGARETTES?EVERY DAY PATIENT COUNSELED ON THE DANGERS OF TOBACCO USE AND URGED TO QUIT:09/22/2020 VAPORNO E-CIGARETTENO LATEX QUESTIONNAIRE LATEX ALLERGY : HAVE YOU EVER DEVELOPED ANY TYPE OF REACTION AFTER HANDLING LATEX PRODUCTS SUCH RUBBER GLOVES, CONDOMS, DIAPHRAGMS, BALLOONS, SOCKS, OR UNDERWEAR?NO LATEX ALLERGY : HAVE YOU EVER DEVELOPED ANY TYPE OF REACTION DURING OR AFTER DENTAL APPOINTMENT, VAGINAL/RECTAL EXAMINATION, SURGICAL PROCEDURE, OR ANY OTHER EXPOSURE?NO DATE ASKED : 09/02/2020 LATEX RISK : HAVE YOU EVER HAD ANY DIFFICULTY BREATHING OR HIVES AFTER EATING OR HANDLING ANY FRUITS, OR VEGETABLES; SUCH KIWI, BANANAS, STONE FRUITS, OR CHESTNUTSNO LATEX RISK : DO YOU HAVE A PREVIOUS PERSONAL HISTORY OF MORE THAN NINE SURGERIES, SPINA BIFIDA, OR REPEATED CATHERIZATIONS? YES LATEX RISK : ARE YOU FREQUENTLY EXPOSED TO LATEX PRODUCTS IN YOUR OCCUPATION?NO ALCOHOL USE: NO, ONCE EVERY 4 MONTH. ALCOHOL SCREENING DID YOU HAVE A DRINK CONTAINING ALCOHOL IN THE PAST YEAR?YES HOW OFTEN DID YOU HAVE A DRINK CONTAINING ALCOHOL IN THE PAST YEAR?MONTHLY OR LESS (1 POINT) POINTS1 INTERPRETATIONNEGATIVE RECREATIONAL DRUG USE DRUG USE?NO CAFFEINE CAFFEINE USE?YES 2-3 DAILY SEXUAL HX HAD SEX IN THE LAST 12 MONTHS (VAGINAL, ORAL, OR ANAL)?NO HAVE YOU EVER HAD AN STD?NO HIV / HEP-C SCREENING HIV TEST OFFERED TO PATIENT:YES DATE OFFERED:06/28/2017 TEST ACCEPTED:NO HEP-C TEST OFFERED TO PATIENT:YES DATE OFFERED:06/28/2017 REASON:PATIENT DECLINED TEST ACCEPTED:NO REASON:PATIENT DECLINED SPIRITISM [id number] NONE NO ADVENT BELIEFS THAT WOULD IMPACT HEALTH CARE. LANGUAGE LANGUAGES SPOKEN:KAZAKH EDUCATION LEVEL OF EDUCATION:HIGH SCHOOL GED LEARNING BARRIERS / SPECIAL NEEDS CHANGE FROM LAST VISIT?NO BARRIERS TO LEARNING?NO HEARING IMPAIRED?NO TINITUS VISION IMPAIRED?YES :CORRECTIVE LENSES COGNITIVELY IMPAIRED?NO READINESS TO LEARN?YES LEARNING PREFERENCES?NO LEARNING CAPABILITIES PRESENT?YES EMOTIONAL BARRIERS?NO SPECIAL DEVICES?YES :CANE NEEDED PRODUCTION MANAGER NEEDED?NO DOMESTIC VIOLENCE DO YOU FEEL SAFE IN YOUR ENVIRONMENT?YES OCCUPATION: DISABLED. DIET: AVOIDS GREASY, FRIED FOODS, DAIRY.TRIES TO EAT SMALLER PORTIONS. EXERCISE: LOWER BACK EXERCISES, WALKS TOLERATED. MARITAL STATUS: .. OTHERS AT HOME: DAUGHTER. - PFS REFERRAL NEEDED?NO CLERGY REFERRAL NEEDED?NO PUBLIC HEALTH REFERRAL NEEDED?NO HAS THE PATIENT BEEN EDUCATED REGARDING HIS/HER PLAN OF CARE?YES HAS THE PATIENT BEEN EDUCATED REGARDING PAIN, THE RISK FOR PAIN, THE IMPORTANCE OF EFFECTIVE PAIN MANAGEMENT, AND THE PAIN ASSESSMENT PROCESS?YES ADVANCE DIRECTIVE ADVANCE DIRECTIVE DISCUSSED WITH PATIENT:YES PT STATES SHE HAS A HEALTH CARE PROXY-RAH ROSARIO [phone] HOSPITALIZATION/MAJOR DIAGNOSTIC PROCEDURE SURGICAL RELATED VITAL SIGNS WT 127.2 LBS, HT 64 IN, BMI 21.83 INDEX, BP 112/81 MM HG, HR 72 /MIN, RR 18 /MIN, TEMP 96.8 F, OXYGEN SAT % 97, SAFE IN ENV? (Y/N) Y, REVIEWED BY: TOÑITO. EXAMINATION GENERAL: A HISTORY AND PHYSICAL EXAM ON THE PATIENT WAS DONE ON 09/02/2020(DATE OF ORIGINAL ASSESSMENT) IN PREPARATION OF SURGERY/PROCEDURE. I HAVE NOW REASSESSED THIS PATIENT'S HEALTH STATUS AND PERFORMED AN UPDATED EXAM TODAY. ALL CHANGES IN THE PATIENT'S HISTORY, PHYSICAL EXAM, PRE-EXISTING CONDITONS, AND INDICATIONS/CONTRAINDICATIONS TO THE PLANNED PROCEDURE AND ANESTHESIA ARE DOCUMENTED AND EVALUATED BELOW. I ATTEST TO THE ADEQUACY AND APPROPRIATENESS OF MY ASSESSMENT, AND CONFIRM THE NECESSITY FOR THE PLANNED PROCEDURE. THE PATIENT IS ALERT, ORIENTED TIMES THREE AND COOPERATIVE. LUNGS ARE CLEAR TO AUSCULTATION. HEART SHOWS REGULAR RHYTHM, NO MURMURS AND NO GALLOPS. ASSESSMENTS SPONDYLOSIS WITHOUT MYELOPATHY OR RADICULOPATHY, LUMBAR REGION - M47.816 (PRIMARY) SPONDYLOSIS WITHOUT MYELOPATHY OR RADICULOPATHY, LUMBOSACRAL REGION - M47.817 TREATMENT SPONDYLOSIS WITHOUT MYELOPATHY OR RADICULOPATHY, LUMBAR REGION SMC FACET BLOCK (PAIN)[id number] COMPLETION OF PROCEDURAL VISIT WHEN MEETS CRITERIAEMERY HOWARD 09/23/2020 10:28:03 AM > CRITERIA MET @ 1020 OTHERS NOTES: 09/22/20 PRE-PROCEDURE CALL COMPLETED Sigrid FRAIRE RN. PROCEDURES PAIN NURSING RECORD PROCEDURE IN ROOM 0915, PHYSICIAN IN ROOM 0951, START 0954, FINISH 1002, PHYSICIAN OUT OF ROOM 1003, OUT OF ROOM 1007, ECG NORMAL SINUS, PATIENT SHIELDED YES, SAFETY STRAP YES, PREP CHLOROPREP Percy ROSADO RN, DRESSING TEGADERM DR. CRAFT LOC: 1. ALERT, ORIENTEDLEE TOM 09/23/2020 9:34:19 AM > RESP: 1. REGULAR, NO DYSPNEALEE TOM 09/23/2020 9:34:24 AM > COLOR: 1. PINKLEEEMERY 09/23/2020 9:34:28 AM > SKIN: 1. WARM, DRYLEEEMERY 09/23/2020 9:34:33 AM > POSITION: 1. PRONELEEEMERY 09/23/2020 9:34:38 AM > VITALS: HR 69, 98%, 144/81, R 14, EMERY HOWARD 09/23/2020 9:45:27 AM > HR 70, 98%, 147/67, R14, EMERY HOWARD 09/23/2020 1000 AM > EXIT VITALS HR80, 121/62, 98%, R14, PAIN 3/10 , EMERY HOWARD 09/23/2020 10:20:13 AM > NOTES Rosario HOWARD RN COMPLETION OF PROCEDURE APPOINTMENT: POST PAIN 3, DRESSING SITE DRY AND INTACT, IV N/A, GAIT STEADY, TEACHING COMPLETED, PATIENT ACKNOWLEDGES UNDERSTANDING YES, PROCEDURE APPOINTMENT COMPLETED AT 1020 PN LUMBAR FACET BLOCK DIAGNOSTIC PRE PROCEDURE DIAGNOSIS LUMBAR SPONDYLOSIS, LUMBOSACRAL SPONDYLOSIS POST PROCEDURE DIAGNOSIS LUMBAR SPONDYLOSIS, LUMBOSACRAL SPONDYLOSIS PROCEDURE BILATERAL L4-L5 AND BILATERAL L5-S1 FACET BLOCK DIAGNOSTIC NUMBER [address] KENDRA CRAFT GENERAL ASSIGNMENT REPORTER NONE ANESTHESIA LOCAL PRE PROCEDURE NOTE THE PATIENT WITH HISTORY OF CHRONIC LOW BACK PAIN. I EVALUATED THE PATIENT AND REVIEWED THE CHART. I WENT OVER THE RISKS, ALTERNATIVES, AND BENEFITS ASSOCIATED WITH THIS PROCEDURE. THE PATIENT WOULD LIKE TO PROCEED AND GAVE CONSENT TO PERFORM THE PROCEDURE. AGREED WITH THE PATIENT, WE ARE DOING THIS PROCEDURE TO DETERMINE IF THE PATIENT IS A CANDIDATE FOR A RADIOFREQUENCY ABLATION OF THE FACETS JOINTS. THE PATIENT DENIES UNEXPLAINABLE WEIGHT LOSS, FEVER, CHILLS, OR NEW CHANGES IN URINARY OR BOWEL CONTROL. THE PATIENT IS COVID-19 NEGATIVE. THE PATIENT HAD A DIAGNOSTIC NUMBAR 1 ON 08/24/2020 DESCRIPTION OF PROCEDURE THE PATIENT WAS BROUGHT TO THE PROCEDURE ROOM AND PLACED IN THE PRONE POSITION. THE LUMBOSACRAL AREA WAS CLEANED WITH CHLORAPREP SOLUTION AND DRAPED ASEPTICALLY. THE PROCEDURE WAS DONE UNDER STERILE CONDITIONS. A TIMEOUT WAS PERFORMED WHERE THE CONSENTED SITE WAS VERIFIED WITH EVERYONE IN THE ROOM. UNDER FLUOROSCOPIC GUIDANCE, TARGETS WERE SELECTED AT THE INTERSECTION OF THE RIGHT AND LEFT L4-L5 AND RIGHT AND LEFT L5-S1 TRANSVERSE PROCESS OF L4, L5 AND ALA OF S1 WITH ITS RESPECTIVE SUPERIOR ARTICULAR PROCESS WITH A TARGET OF THE MEDIAN BRANCHES OF L3, L4 AND THE DORSAL RAMI OF L5. I CONFIRMED AGAIN THE SITE OF TARGET. LIDOCAINE WAS USED TO NUMB THE SKIN AND THE SUBCUTANEOUS TISSUE BELOW IT. SPINAL NEEDLE, 22-GAUGE, WAS ADVANCED UNDER FLUOROSCOPIC GUIDANCE AND FOLLOWING PATIENT FEEDBACK UNTIL THE TARGETS WERE REACHED. POSITION OF THE NEEDLES WAS VERIFIED WITH AP AND LATERAL VIEWS. AFTER PROPER POSITION OF THE NEEDLES WAS ACHIEVED, ISOVUE-M DYE 30%, 0.1 ML, WAS INJECTED AT EACH SITE SHOWING ADEQUATE SPREAD OF THE DYE. THEN, A SOLUTION OF 0.4 ML OF BUPIVACAINE 0.25% WAS INJECTED AT EACH SITE. THE MEDICATIONS WERE VERIFIED WITH THE NURSE. THERE WAS NO EVIDENCE OF BLOOD, PARESTHESIA OR CEREBROSPINAL FLUID DURING THE PROCEDURE. THE PATIENT WAS SENT TO THE RECOVERY ROOM. THE PATIENT WAS MOVING THE EXTREMITIES AND DOING WELL. THERE WERE NO COMPLICATIONS DURING THE PROCEDURE. ESTIMATED BLOOD LOSS WAS LESS THAN 5 ML. FLUOROSCOPY TIME WAS 36 SECONDS POST PROCEDURE NOTE THE PATIENT WILL DOCUMENT THE PAIN LEVEL AND RESPONSE TO THIS PROCEDURE PER PAIN DIARY. THE PATIENT WILL BE SEEN IN A FOLLOW UP IN THE NEXT FEW WEEKS. FURTHER DETERMINATION FOR THE PATIENT'S CASE WILL BE DONE AT THE NEXT VISIT. INSTRUCTIONS WERE GIVEN, QUESTIONS WERE ANSWERED, AND THE PATIENT EXPRESSED UNDERSTANDING AND AGREED WITH THE PLAN. I, CHINYERE AMARO, DOCUMENTED THE ABOVE INFORMATION ACTING A SCRIBE FOR DR. CRAFT. I HAVE REVIEWED THE ABOVE DOCUMENT, WRITTEN BY CHINYERE AMARO, COMPUTER NETWORK SPECIALIST, AND I VERIFY THAT IT IS ACCURATE PROCEDURE CODES 26135 INJ PARAVERT F JNT L/S 1 LEV, MODIFIERS: 50 [id number] INJ PARAVERT F JNT L/S 2 LEV, MODIFIERS: 50 DISPOSITION & COMMUNICATION FOLLOW UP FOLLOW UP WITH WELDING EQUIPMENT REPAIRER (REASON: POST BILATERAL LUMBAR FACET BLOCK #2 L4-L5, L5-S1) ELECTRONICALLY SIGNED BY KENDRA CRAFT MD, ON 09/23/2020 AT 05:28 PM EDT DISCLAIMER : THIS IS A VISIT SUMMARY EXTRACTED FROM THE [employer] CHART. IT IS NOT A COPY OF THE [employer] PROGRESS NOTE. MTDD
== END ==
LOC: M PAIN 08:30
PROVIDERS: ATTEND Anesthesiology
DX: M47.816 Spondylosis without myelopathy or radiculopathy, lumbar region (principal); M47.817 Spondylosis without myelopathy or radiculopathy, lumbosacral region; M79.7 Fibromyalgia; K21.9 Gastro-esophageal reflux disease without esophagitis; E78.5 Hyperlipidemia, unspecified; N95.2 Postmenopausal atrophic vaginitis; E55.9 Vitamin D deficiency, unspecified; K58.0 Irritable bowel syndrome with diarrhea; F32.9 Major depressive disorder, single episode, unspecified; G47.00 Insomnia, unspecified; F17.210 Nicotine dependence, cigarettes, uncomplicated; Z79.891 Long term (current) use of opiate analgesic; Z79.899 Other long term (current) drug therapy; Z88.2 Allergy status to sulfonamides; Z88.8 Allergy status to other drugs, medicaments and biological substances; Z91.048 Other nonmedicinal substance allergy status
CPT/HCPCS: 64493; 64494; Q9967

== ENCOUNTER → 2020-09-28 | Outpatient (CLI) | payer MEDICARE ==
[~2020-09-28] MED LIST changes: -BUPIVACAINE HCL 0.25% 30ML VIAL As Ordered ONE; -ISOVUE-M 300 61% 15ML VIAL As Ordered ONE; -LIDOCAINE 1% SDV 30ML VIAL As Ordered ONE
--- NOTE | 2020-09-29 00:50 | ECWPNPC ---
PATIENT NAME: LOGAN CRAVEN : 1960 GENDER: FEMALE VISIT DATE: 09/28/2020 DISCHARGE DATE: 09/28/20 1541 VISIT LOCKED DATE TIME: PHYSICIAN: ANDREA ELIAS PHYSICIAN PAGER NO: ACTIVE RESOURCE: ANDREA ELIAS REASON FOR APPOINTMENT 1. POST BILATERAL DIAGNOSTIC LUMBAR FACET BLOCK #2 L4-5,L5-S1 HISTORY OF PRESENT ILLNESS GENERAL: HERE FOR POST PROCEDURE F/U.HAD BILATERAL LFBDX#2 L4-5,L5-S1 ON 09/23/2020.HOURLY PAIN DIARY IS REVIEWED AND SHOWING GREATER THAN 80% REDUCTION IN PAIN FOR 6-10 HOURS AND THEN PAIN RETURNED TO BASELINE.DISCUSSED RADIOFREQUENCY PROCEDURE. -. FALL RISK SCREENING: SCREENING : NO FALLS REPORTED IN THE LAST YEAR. PAIN SCREENING: PATIENT HAS A COMPLAINT OF ACUTE OR CHRONIC PAIN :YES LOCATION OF PAIN:LOW BACK PAIN GOES DOWN THE BACK SIDE OF LEG AND THE FRONT OF LEGS, MOSTLY ON THE RIGHT SIDE INTENSITY OF PAIN (SCALE OF 1 TO 10):8 WHAT DOES YOUR PAIN FEEL LIKE:CONTINOUS DURATION:CONTINOUS, CONSTANT, ALL DAY, AWAKENS FROM SLEEP PAIN IS INCREASED BY:ACTIVITIES, PROLONGED STANDING PAIN IS DECREASED BY:OTHERS HEAT, RESTING NURSING NOTE: -. PAIN CENTER INTAKE QUESTIONS: DO YOU HAVE A HISTORY OF MRSA? :NO DO YOU TAKE A BLOOD THINNERS? :YES ELMIRON 5 DAYS BEFORE PROCEDURE AND RESTART THE NEXT DAY DO YOU HAVE ANY BLEEDING DISORDERS? :NO ANY NEW NUMBNESS OR WEAKNESS IN YOUR LEGS OR ARMS? :YES PAIN GOES DOWN THE BACK OF LEG, DOWN INTO ANKLES AND OUTSIDE OF LEG ANY PACEMAKER,DEFIBRILLATOR, OR DORSAL COLUMN STIMULATOR? :NO DO YOU HAVE ANY RASHES OR OPEN SORES? :NO ARE YOU ALLERGIC TO IV DYE? :NO ARE YOU DIABETIC? :NO ANY NEW PROBLEMS WITH YOUR MEDICATIONS? :NO HAVE YOU RECEIVED A VACCINE IN THE PAST 30 DAYS? :NO DO YOU PLAN TO RECEIVE A VACCINE IN THE NEXT 21 DAYS? :NO DO YOU NEED ANY PRESCRIPTION? :NO DO YOU TAKE ANY IMMUNOSUPPRESSIVE MEDICATIONS? :YES LEFLUNOMIDE AND ENBREL (18-10 DAYS BEFORE PROCEDURE AND 10-4DAYS AFTER PROCEDURE }SURECLICK AND ELMIRON IS THERE A CHANCE YOU COULD BE ? :NO ARE YOU BREAST FEEDING? :NO CURRENT MEDICATIONS TAKING FISH OIL 1000 MG CAPSULE 1 CAPSULE ORALLY ONCE A DAY TAKING ESOMEPRAZOLE MAGNESIUM 40 MG CAPSULE DELAYED RELEASE 1 CAPSULE ORALLY AC BID TAKING CARAFATE 1 GM TABLET 1 TABLET ON AN EMPTY STOMACH ORALLY AC TID TAKING CANE . MISCELLANEOUS QUAD CANE _ QD R27 TAKING CALCIUM 600 + D 600-400 MG-UNIT TABLET 1 TABLET ORALLY ONCE A DAY TAKING ATORVASTATIN CALCIUM 20 MG TABLET 1 TABLET ORALLY ONCE A DAY TAKING CYANOCOBALAMIN 500 MCG TABLET 1 TABLET ORALLY 1 EVERY 5 DAYS TAKING ESCITALOPRAM OXALATE 10 MG TABLET 15MG 1.5 TABLET ORALLY ONCE A DAY TAKING WELCHOL 625 MG TABLET 1 TAB ORALLY TWICE A DAY SYDNEY TAKING CARISOPRODOL 350 MG TABLET 1 TABLET NEEDED ORALLY TID PRN, MDD 3 TAKING HYDROCODONE-ACETAMINOPHEN 5-325 MG TABLET 1 TABLET NEEDED ORALLY TID PRN MDD = 3 TAKING VITAMIN D-3 25 MCG (1000 UT) CAPSULE 2 CAPSULES ORALLY ONCE A DAY TAKING ELMIRON 100 MG CAPSULE 1 CAPSULE ON AN EMPTY STOMACH 1 TABLET THREE A DAY TAKING LEFLUNOMIDE 20 MG TABLET 1 TABLET ORALLY ONCE A DAY TAKING ENBREL SURECLICK 50 MG/ML SOLUTION AUTO-INJECTOR DIRECTED SUBCUTANEOUS ONCE A WEEK NOT-TAKING VITAMIN D 2000 UNIT CAPSULE 1 TABLET ORALLY ONCE A DAY NOT-TAKING CARAFATE 1 GM TABLET 1 TABLET ON AN EMPTY STOMACH ORALLY AC TID NOT-TAKING ESOMEPRAZOLE MAGNESIUM 40 MG CAPSULE DELAYED RELEASE 1 CAPSULE ORALLY AC BID MEDICATION LIST REVIEWED AND RECONCILED WITH THE PATIENT PAST MEDICAL HISTORY RA/OSTEOARTHRITIS/FIBROMYALGIA NICOTINE ADDICTION-08/2011 FEV1 2.5L (101%)/RATIO 97%-1 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 GERD/DYSPEPSIA-06/2016 NORMAL EGD/COLON/SB CAPSULE-R HYPERLIPIDEMIA 2B ENDOMETRIOSIS 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 SPENCER 2008 FOLLOWS WITH WOMAN TO WOMAN HISTORY OF TUBULAR ADENOMA-NORMAL COLONOSCOPY APRIL 2009 NORMAL COLONOSCOPY C - RANDOM BIOPSIES-[place] COLONOSCOPY 07/18/16 REINDL 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 BARAJAS, 01/2014 FILLED OUT LTD PAPERWORK FOR GUARDIAN-PATIENT DEFERRED WCE CHRONIC MDD/PD/INSOMNIA, COOMORBID ALLERGIES METHOTREXATE (ANTI-RHEUMATIC): MIGRANES - SIDE EFFECTS CYMBALTA: RACING PLUSE, SHAKES - ALLERGY WELLBUTRIN: PALPITATIONS, SEVERE - ALLERGY SULFA (FOR ALLERGY USE ONLY): NAUSEA/VOMITING - ALLERGY LYRICA: PALPITATIONS - ALLERGY CELEXA: PALPITATIONS - SIDE EFFECTS ORENCIA: ANAPHYLAXIS - ALLERGY TOPICAL ALOE VERA: SEVERE ITCHING - ALLERGY CANNOT TOLERATE ASA BASED PRODUCTS/ NSAIDS: HX STOMACH BLEED - CONTRAINDICATION SOCIAL HISTORY GENERAL: TOBACCO USE ARE YOU A:CURRENT SMOKER ARE YOU INTERESTED IN QUITTING?THINKING ABOUT QUITTING PREVIOUS QUIT ATTEMPTS?NO. COUNSELED THE PATIENT ON SMOKING CESSATION, EDUCATION [id number]/01/2021 ASSIST (PHARMACOTHERAPY AND COUNSELING)ADVISED TO CALL [facility] QUITLINE [phone] [facility] [facility]. ARRANGEADVISED TO CALL [facility] TOBACCO CESSATION HOW MANY CIGARETTES A DAY DO YOU SMOKE?5 OR LESS HOW SOON AFTER YOU WAKE UP DO YOU SMOKE YOUR FIRST CIGARETTE?AFTER 60 MIN HOW OFTEN DO YOU SMOKE CIGARETTES?EVERY DAY PATIENT COUNSELED ON THE DANGERS OF TOBACCO USE AND URGED TO QUIT:09/22/2020 VAPORNO E-CIGARETTENO LATEX QUESTIONNAIRE LATEX ALLERGY : HAVE YOU EVER DEVELOPED ANY TYPE OF REACTION AFTER HANDLING LATEX PRODUCTS SUCH RUBBER GLOVES, CONDOMS, DIAPHRAGMS, BALLOONS, SOCKS, OR UNDERWEAR?NO LATEX ALLERGY : HAVE YOU EVER DEVELOPED ANY TYPE OF REACTION DURING OR AFTER DENTAL APPOINTMENT, VAGINAL/RECTAL EXAMINATION, SURGICAL PROCEDURE, OR ANY OTHER EXPOSURE?NO LATEX RISK : HAVE YOU EVER HAD ANY DIFFICULTY BREATHING OR HIVES AFTER EATING OR HANDLING ANY FRUITS, OR VEGETABLES; SUCH KIWI, BANANAS, STONE FRUITS, OR CHESTNUTSNO LATEX RISK : DO YOU HAVE A PREVIOUS PERSONAL HISTORY OF MORE THAN NINE SURGERIES, SPINA BIFIDA, OR REPEATED CATHERIZATIONS? YES LATEX RISK : ARE YOU FREQUENTLY EXPOSED TO LATEX PRODUCTS IN YOUR OCCUPATION?NO DATE ASKED : 09/28/2020 ALCOHOL USE: NO, ONCE EVERY 4 MONTH. ALCOHOL SCREENING DID YOU HAVE A DRINK CONTAINING ALCOHOL IN THE PAST YEAR?YES HOW OFTEN DID YOU HAVE A DRINK CONTAINING ALCOHOL IN THE PAST YEAR?MONTHLY OR LESS (1 POINT) POINTS1 INTERPRETATIONNEGATIVE RECREATIONAL DRUG USE DRUG USE?NO CAFFEINE CAFFEINE USE?YES 2-3 DAILY SEXUAL HX HAD SEX IN THE LAST 12 MONTHS (VAGINAL, ORAL, OR ANAL)?NO HAVE YOU EVER HAD AN STD?NO HIV / HEP-C SCREENING HIV TEST OFFERED TO PATIENT:YES DATE OFFERED:06/28/2017 TEST ACCEPTED:NO HEP-C TEST OFFERED TO PATIENT:YES DATE OFFERED:06/28/2017 REASON:PATIENT DECLINED TEST ACCEPTED:NO REASON:PATIENT DECLINED MORMON [id number] NONE NO TAOISM BELIEFS THAT WOULD IMPACT HEALTH CARE. LANGUAGE LANGUAGES SPOKEN:YI EDUCATION LEVEL OF EDUCATION:HIGH SCHOOL GED LEARNING BARRIERS / SPECIAL NEEDS CHANGE FROM LAST VISIT?NO BARRIERS TO LEARNING?NO HEARING IMPAIRED?NO TINITUS VISION IMPAIRED?YES :CORRECTIVE LENSES COGNITIVELY IMPAIRED?NO READINESS TO LEARN?YES LEARNING PREFERENCES?NO LEARNING CAPABILITIES PRESENT?YES EMOTIONAL BARRIERS?NO SPECIAL DEVICES?YES :CANE NEEDED SENIOR POLICY ASSOCIATE NEEDED?NO DOMESTIC VIOLENCE DO YOU FEEL SAFE IN YOUR ENVIRONMENT?YES OCCUPATION: DISABLED. DIET: AVOIDS GREASY, FRIED FOODS, DAIRY.TRIES TO EAT SMALLER PORTIONS. EXERCISE: LOWER BACK EXERCISES, WALKS TOLERATED. MARITAL STATUS: .. OTHERS AT HOME: DAUGHTER. - PFS REFERRAL NEEDED?NO CLERGY REFERRAL NEEDED?NO PUBLIC HEALTH REFERRAL NEEDED?NO HAS THE PATIENT BEEN EDUCATED REGARDING HIS/HER PLAN OF CARE?YES HAS THE PATIENT BEEN EDUCATED REGARDING PAIN, THE RISK FOR PAIN, THE IMPORTANCE OF EFFECTIVE PAIN MANAGEMENT, AND THE PAIN ASSESSMENT PROCESS?YES ADVANCE DIRECTIVE ADVANCE DIRECTIVE DISCUSSED WITH PATIENT:YES PT STATES SHE HAS A HEALTH CARE PROXY-RAH VASQUEZAPP [phone] REVIEW OF SYSTEMS CONSTITUTIONAL: ANY RECENT FEVER NO . CHILLS NO . WEIGHT CHANGE OF UNKNOWN REASONS NO . GASTROENTEROLOGY: NEW UNEXPLAINABLE CHANGES IN BOWEL CONTROL NO . CONSTIPATION NO . GENITOURINARY: ANY NEW CHANGE IN BLADDER CONTROL? NO . NEUROLOGY: NEW ONSET DIZZINESS OR NEUROLOGICAL CHANGES NOT MENTIONED NO . NEW NUMBNESS OR PAIN PATTERNS NOT MENTIONED AND PERTINENT TO TODAY'S VISIT NO . CARDIOLOGY: NEW CHEST PRESSURE NO . PATIENT DENIES NO . RESPIRATORY: UNEXPLAINABLE COUGH NO . NEW SHORTNESS OF BREATH NO . VITAL SIGNS WT 127.2 LBS, HT 64 IN, BMI 21.83 INDEX, BP 112/56 MM HG, HR 76 /MIN, RR 18 /MIN, TEMP 98.3 F, OXYGEN SAT % 95%, SAFE IN ENV? (Y/N) YES, NA INITIALS SC 15:00T.CARYN CORLEY. EXAMINATION GENERAL EXAMINATION: GENERAL AWAKE,ALERT ,PLEASANT . PSYCH AFFECT NORMAL . LUNGS: LUNG LINDSEY ARE CLEAR TO AUSCULTATION BILATERALLY. GOOD MOVEMENT OF AIR . HEART: S1, S2 IN A REGULAR RATE AND RHYTHM. NO SIGNIFICANT MURMURS, RUBS OR GALLOPS NOTED . LUMBAR: PALPATION: + FOR PAIN OVER L/S SPINE. + FOR PAIN OVER L/S PARASPINALS SPECIFIC POINT TENDERNESS OVER L4-5,L5-S1 LUMBAR FACETS WITH FACET LOADING. NEUROLOGIC EXAM: NORMAL SENSATION LIGHT TOUCH BILAT. LOWER EXTREMITIES . ASSESSMENTS OTHER CHRONIC PAIN - G89.29 (PRIMARY) SPONDYLOSIS WITHOUT MYELOPATHY OR RADICULOPATHY, LUMBAR REGION - M47.816 TREATMENT OTHER CHRONIC PAIN PAIN PROCEDURE LOGDATE OF PROCEDURE1PROCEDURE:BILATERAL DIAGNOSTIC LUMBAR FACET BLOCK #2 L4-L5,L5-[id number] OF PRE SEDATE0/0RESULT:GREATER THAN 80% REDUCTION IN PAIN FOR 6-10 HRS POST PROCEDURE MED: PAIN BENADRYL TAB 25MG ORALLY DIPHENHYDRAMINE (ORDERED FOR 10/12/2020) MEDICATION: OXYCODONE HCL TAB 10MG ORALLY (ORDERED FOR 10/12/2020) MEDICATION: VALIUM TAB 10MG ORALLY (DIAZEPAM) (ORDERED FOR 10/12/2020) NOTES: RIGHT LUMBAR COOL RADIOFREQUENCY L4-5,L5-S1 SEND STOP ENBREL/LAFLUTAMIDE TO [facility]/DR CRANE SEND STOP ELMIRON 5 DAYS PRE PROCEDURE TO DR BARAJAS [facility]-COOL RADIOFREQUENCY/RADIOFREQUENCY ABLATION REVIEWED PRE PROCEDURE INFORMATION, PATIENT UNDERSTANDING EZEKIEL CORLEY. PROCEDURE CODES FA211 ESTABILISHED PATIENT LATTER-DAY FACILITY CHARGE DISPOSITION & COMMUNICATION FOLLOW UP POST (REASON: RIGHT LUMBAR COOL RADIOFREQUENCY L4-5,L5-S1/MED HOLD) ELECTRONICALLY SIGNED BY CARIDAD HENLEY ON 09/28/2020 AT 10:15 PM EDT DISCLAIMER : THIS IS A VISIT SUMMARY EXTRACTED FROM THE [employer] CHART. IT IS NOT A COPY OF THE [employer] PROGRESS NOTE. ZINA
== END ==
LOC: M PAIN 14:30
PROVIDERS: ATTEND Nurse Practitioner Family
DX: G89.29 Other chronic pain (principal); M47.816 Spondylosis without myelopathy or radiculopathy, lumbar region; M06.9 Rheumatoid arthritis, unspecified; M79.7 Fibromyalgia; K21.9 Gastro-esophageal reflux disease without esophagitis; E78.5 Hyperlipidemia, unspecified; N95.2 Postmenopausal atrophic vaginitis; M85.80 Other specified disorders of bone density and structure, unspecified site; E55.9 Vitamin D deficiency, unspecified; J32.9 Chronic sinusitis, unspecified; K58.0 Irritable bowel syndrome with diarrhea; H04.123 Dry eye syndrome of bilateral lacrimal glands; F17.210 Nicotine dependence, cigarettes, uncomplicated; Z79.891 Long term (current) use of opiate analgesic; Z79.899 Other long term (current) drug therapy; Z88.2 Allergy status to sulfonamides; Z88.8 Allergy status to other drugs, medicaments and biological substances; Z91.048 Other nonmedicinal substance allergy status

== ENCOUNTER → 2020-10-13 | Outpatient (CLI) | payer MEDICARE | LOC: M WHC 13:56 | PROVIDERS: ATTEND Advanced Practice Midwife | DX: Z01.419 Encounter for gynecological examination (general) (routine) without abnormal findings (principal); Z12.31 Encounter for screening mammogram for malignant neoplasm of breast; Z86.018 Personal history of other benign neoplasm; Z92.29 Personal history of other drug therapy | CPT/HCPCS: 77063; 77067; G0101 ==

== ENCOUNTER → 2020-11-26 | Outpatient (CLI) | payer MEDICARE | LOC: M LABSMTC 11:25 | PROVIDERS: ATTEND Anesthesiology | DX: Z01.812 Encounter for preprocedural laboratory examination (principal); Z20.822 Contact with and (suspected) exposure to COVID-19 ==

== ENCOUNTER → 2020-12-01 | Outpatient (CLI) | payer MEDICARE ==
[~2020-12-01] MED LIST changes: +BUPIVACAINE HCL 0.25% 30ML VIAL As Ordered ONE; +LIDOCAINE 1% SDV 30ML VIAL As Ordered ONE; +dexameTHASONE 10MG/1ML VIAL PRES.FREE (J1100 PER 1MG) As Ordered ONE; +diazePAM 5MG TABLET As Ordered ONE; +diphenhydrAMINE 25MG CAP As Ordered ONE; +oxyCODONE 5MG TAB As Ordered ONE
--- NOTE | 2020-12-01 17:22 | REP ---
INDICATION: RIGHT COOL RF. COMPARISON: None. TECHNIQUE: Multiple C-arm views lower lumbar spine. FINDINGS: [place] are seen along the lower lumbar spine. IMPRESSION: 145 seconds fluoroscopy time utilized. <Electronically signed by Harish Kennedy > 12/01/20 [id number]
--- NOTE | 2020-12-03 02:53 | ECWPNPC ---
PATIENT NAME: LOGAN CRAVEN : 1960 GENDER: FEMALE VISIT DATE: 12/01/2020 DISCHARGE DATE: 12/01/20 172 VISIT LOCKED DATE TIME: PHYSICIAN: KENDRA CRAFT MD PHYSICIAN PAGER NO: ACTIVE RESOURCE: KENDRA CRAFT MD REASON FOR APPOINTMENT 1. RIGHT LUMBAR COOL RADIOFREQUENCY L4-5,L5-S1 HISTORY OF PRESENT ILLNESS GENERAL: -. FALL RISK SCREENING: SCREENING : NO FALLS REPORTED IN THE LAST YEAR. PAIN SCREENING: PATIENT HAS A COMPLAINT OF ACUTE OR CHRONIC PAIN :YES LOCATION OF PAIN:LOW BACK PAIN GOES DOWN THE BACK SIDE OF LEG AND THE FRONT OF LEGS, MOSTLY ON THE RIGHT SIDE INTENSITY OF PAIN (SCALE OF 1 TO 10):7 "USUALLY HIGHER IN MORNING." WHAT DOES YOUR PAIN FEEL LIKE:CONTINOUS DURATION:CONTINOUS, AWAKENS FROM SLEEP PAIN IS INCREASED BY:ACTIVITIES, PROLONGED STANDING PAIN IS DECREASED BY:USE OF PAIN MEDICATIONS, OTHERS PLAN/GOALS/TREATMENT/INTERVENTION/FOLLOW UP:SEE PLAN NURSING NOTE: -. PAIN CENTER INTAKE QUESTIONS: DO YOU HAVE A HISTORY OF MRSA? :NO DO YOU TAKE A BLOOD THINNERS? :YES ELMIRON 5 DAYS BEFORE PROCEDURE AND RESTART THE NEXT DAY DO YOU HAVE ANY BLEEDING DISORDERS? :NO ANY NEW NUMBNESS OR WEAKNESS IN YOUR LEGS OR ARMS? :YES PAIN GOES DOWN THE BACK OF LEG, DOWN INTO ANKLES AND OUTSIDE OF LEG ANY PACEMAKER,DEFIBRILLATOR, OR DORSAL COLUMN STIMULATOR? :NO DO YOU HAVE ANY RASHES OR OPEN SORES? :NO ARE YOU ALLERGIC TO IV DYE? :NO ARE YOU DIABETIC? :NO ANY NEW PROBLEMS WITH YOUR MEDICATIONS? :NO HAVE YOU RECEIVED A VACCINE IN THE PAST 30 DAYS? :YES IF SO WHAT VACCINE AND WHEN? 11/10/20 AM[facility] AND [facility] COVID VACCINE DO YOU PLAN TO RECEIVE A VACCINE IN THE NEXT 21 DAYS? :NO DO YOU NEED ANY PRESCRIPTION? :NO DO YOU TAKE ANY IMMUNOSUPPRESSIVE MEDICATIONS? :YES LEFLUNOMIDE AND ENBREL (18-10 DAYS BEFORE PROCEDURE AND 10-4DAYS AFTER PROCEDURE }SURECLICK AND ELMIRON ANY HISTORY OF SEIZURES? :NO ANY HISTORY OF CARDIAC ISSUES OR EVENTS? :NO DO YOU HAVE ANY KIDNEY OR LIVER DISEASE? :NO DO YOU HAVE SLEEP APNEA? :NO ANY RECENT HEAD INJURY? :NO DO YOU HAVE ANY NEW INFECTIONS? :NO IS THERE A CHANCE YOU COULD BE ? :NO ARE YOU BREAST FEEDING? :NO WHEN DID YOU LAST EAT? : 11/30/20 1800 WHEN DID YOU LAST DRINK? : 12/01/20 0930 WHAT DID YOU LAST DRINK? : WATER NAME OF PERSON DRIVING YOU HOME? : EMERY (BF) DO YOU HAVE ANY OTHER QUESTIONS OR CONCERNS? : NO CURRENT MEDICATIONS TAKING FISH OIL 1000 MG CAPSULE 1 CAPSULE ORALLY ONCE A DAY TAKING ESOMEPRAZOLE MAGNESIUM 40 MG CAPSULE DELAYED RELEASE 1 CAPSULE ORALLY AC BID TAKING CALCIUM 600 + D 600-400 MG-UNIT TABLET 1 TABLET ORALLY ONCE A DAY TAKING ATORVASTATIN CALCIUM 20 MG TABLET 1 TABLET ORALLY ONCE A DAY TAKING CYANOCOBALAMIN 500 MCG TABLET 1 TABLET ORALLY 1 EVERY 5 DAYS TAKING WELCHOL 625 MG TABLET 1 TAB ORALLY TWICE A DAY SYDNEY TAKING VITAMIN D-3 25 MCG (1000 UT) CAPSULE 2 CAPSULES ORALLY ONCE A DAY TAKING LEFLUNOMIDE 20 MG TABLET 1 TABLET ORALLY ONCE A DAY, NOTES: 11/26/20 TAKING ENBREL SURECLICK 50 MG/ML SOLUTION AUTO-INJECTOR DIRECTED SUBCUTANEOUS ONCE A WEEK, NOTES: 11/21/20 TAKING ESCITALOPRAM OXALATE 10 MG TABLET 1.5 TABLET ORALLY ONCE A DAY TAKING ELMIRON 100 MG CAPSULE 1 CAPSULE ON AN EMPTY STOMACH 1 TABLET THREE A DAY, NOTES: 11/26/20 TAKING CARAFATE 1 GM TABLET 1 TABLET ON AN EMPTY STOMACH ORALLY AC TID TAKING CARISOPRODOL 350 MG TABLET 1 TABLET NEEDED ORALLY TID PRN, MDD 3, NOTES: 11/30/20 10PM TAKING HYDROCODONE-ACETAMINOPHEN 5-325 MG TABLET 1 TABLET NEEDED ORALLY TID PRN MDD = 3, NOTES: 11/30/20 10PM NOT-TAKING CANE . 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 GERD/DYSPEPSIA-06/2016 NORMAL EGD/COLON/SB CAPSULE-R HYPERLIPIDEMIA 2B ENDOMETRIOSIS 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 SPENCER 2008 FOLLOWS WITH WOMAN TO WOMAN HISTORY OF TUBULAR ADENOMA-NORMAL COLONOSCOPY APRIL 2009 NORMAL COLONOSCOPY C - RANDOM BIOPSIES-[place] COLONOSCOPY 07/18/16 REINDL 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 BARAJAS, 01/2014 FILLED OUT LTD PAPERWORK FOR GUARDIAN-PATIENT DEFERRED WCE CHRONIC MDD/PD/INSOMNIA, COOMORBID 11/10/20 AMEYA AND iRe[employer] COVID VACCINE ALLERGIES METHOTREXATE (ANTI-RHEUMATIC): MIGRANES - SIDE EFFECTS CYMBALTA: RACING PLUSE, SHAKES - ALLERGY WELLBUTRIN: PALPITATIONS, SEVERE - ALLERGY SULFA (FOR ALLERGY USE ONLY): NAUSEA/VOMITING - ALLERGY LYRICA: PALPITATIONS - ALLERGY CELEXA: PALPITATIONS - SIDE EFFECTS ORENCIA: ANAPHYLAXIS - ALLERGY TOPICAL ALOE VERA: SEVERE ITCHING - ALLERGY CANNOT TOLERATE ASA BASED PRODUCTS/ NSAIDS: HX STOMACH BLEED - CONTRAINDICATION SOCIAL HISTORY GENERAL: TOBACCO USE ARE YOU A:CURRENT SMOKER ARE YOU INTERESTED IN QUITTING?THINKING ABOUT QUITTING PREVIOUS QUIT ATTEMPTS?NO. COUNSELED THE PATIENT ON SMOKING CESSATION, EDUCATION [id number]/01/2021 ASSIST (PHARMACOTHERAPY AND COUNSELING)ADVISED TO CALL [facility] QUITLINE 1(478[facility] ARRANGEADVISED TO CALL [facility] TOBACCO CESSATION HOW MANY CIGARETTES A DAY DO YOU SMOKE?5 OR LESS HOW SOON AFTER YOU WAKE UP DO YOU SMOKE YOUR FIRST CIGARETTE?AFTER 60 MIN HOW OFTEN DO YOU SMOKE CIGARETTES?EVERY DAY PATIENT COUNSELED ON THE DANGERS OF TOBACCO USE AND URGED TO QUIT:09/22/2020 VAPORNO E-CIGARETTENO LATEX QUESTIONNAIRE LATEX ALLERGY : HAVE YOU EVER DEVELOPED ANY TYPE OF REACTION AFTER HANDLING LATEX PRODUCTS SUCH RUBBER GLOVES, CONDOMS, DIAPHRAGMS, BALLOONS, SOCKS, OR UNDERWEAR?NO LATEX ALLERGY : HAVE YOU EVER DEVELOPED ANY TYPE OF REACTION DURING OR AFTER DENTAL APPOINTMENT, VAGINAL/RECTAL EXAMINATION, SURGICAL PROCEDURE, OR ANY OTHER EXPOSURE?NO LATEX RISK : HAVE YOU EVER HAD ANY DIFFICULTY BREATHING OR HIVES AFTER EATING OR HANDLING ANY FRUITS, OR VEGETABLES; SUCH KIWI, BANANAS, STONE FRUITS, OR CHESTNUTSNO LATEX RISK : DO YOU HAVE A PREVIOUS PERSONAL HISTORY OF MORE THAN NINE SURGERIES, SPINA BIFIDA, OR REPEATED CATHERIZATIONS? YES LATEX RISK : ARE YOU FREQUENTLY EXPOSED TO LATEX PRODUCTS IN YOUR OCCUPATION?NO DATE ASKED : 11/30/2020 ALCOHOL USE: NO, ONCE EVERY 4 MONTH. ALCOHOL SCREENING DID YOU HAVE A DRINK CONTAINING ALCOHOL IN THE PAST YEAR?YES HOW OFTEN DID YOU HAVE A DRINK CONTAINING ALCOHOL IN THE PAST YEAR?MONTHLY OR LESS (1 POINT) POINTS1 INTERPRETATIONNEGATIVE RECREATIONAL DRUG USE DRUG USE?NO CAFFEINE CAFFEINE USE?YES 2-3 DAILY SEXUAL HX HAD SEX IN THE LAST 12 MONTHS (VAGINAL, ORAL, OR ANAL)?NO HAVE YOU EVER HAD AN STD?NO HIV / HEP-C SCREENING HIV TEST OFFERED TO PATIENT:YES DATE OFFERED:06/28/2017 TEST ACCEPTED:NO REASON:PATIENT DECLINED HEP-C TEST OFFERED TO PATIENT:YES DATE OFFERED:06/28/2017 TEST ACCEPTED:NO REASON:PATIENT DECLINED RESTORATIONIST [id number] NONE NO SABIANISM BELIEFS THAT WOULD IMPACT HEALTH CARE. LANGUAGE LANGUAGES SPOKEN:ISRAELI EDUCATION LEVEL OF EDUCATION:HIGH SCHOOL GED LEARNING BARRIERS / SPECIAL NEEDS CHANGE FROM LAST VISIT?NO BARRIERS TO LEARNING?NO HEARING IMPAIRED?NO TINITUS VISION IMPAIRED?YES :CORRECTIVE LENSES COGNITIVELY IMPAIRED?NO READINESS TO LEARN?YES LEARNING PREFERENCES?NO LEARNING CAPABILITIES PRESENT?YES EMOTIONAL BARRIERS?NO SPECIAL DEVICES?YES :CANE NEEDED MILLER APPRENTICE NEEDED?NO DOMESTIC VIOLENCE DO YOU FEEL SAFE IN YOUR ENVIRONMENT?YES OCCUPATION: DISABLED. DIET: AVOIDS GREASY, FRIED FOODS, DAIRY.TRIES TO EAT SMALLER PORTIONS. EXERCISE: LOWER BACK EXERCISES, WALKS TOLERATED. MARITAL STATUS: .. OTHERS AT HOME: DAUGHTER. - PFS REFERRAL NEEDED?NO CLERGY REFERRAL NEEDED?NO PUBLIC HEALTH REFERRAL NEEDED?NO HAS THE PATIENT BEEN EDUCATED REGARDING HIS/HER PLAN OF CARE?YES HAS THE PATIENT BEEN EDUCATED REGARDING PAIN, THE RISK FOR PAIN, THE IMPORTANCE OF EFFECTIVE PAIN MANAGEMENT, AND THE PAIN ASSESSMENT PROCESS?YES ADVANCE DIRECTIVE ADVANCE DIRECTIVE DISCUSSED WITH PATIENT:YES PT STATES SHE HAS A HEALTH CARE PROXY-RAH ROSARIO [phone] VITAL SIGNS WT 126.6 LBS, WT-KG 57.43 KG, HT 64 IN, BMI 21.73 INDEX, BP 124/57 MM HG, HR 89 /MIN, RR 18 /MIN, TEMP 98.6 F, OXYGEN SAT % 97%, SAFE IN ENV? (Y/N) Y, NA INITIALS AW 1306, REVIEWED BY: EM, O BP STANDING 126.6. EXAMINATION GENERAL: THE PATIENT IS ALERT, ORIENTED TIMES THREE AND COOPERATIVE. LUNGS ARE CLEAR TO AUSCULTATION. HEART SHOWS REGULAR RHYTHM, NO MURMURS AND NO GALLOPS. 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 JEANINE ROSADO 12/01/2020 1:50:09 PM > ADMINISTERED MEDICATION: PAIN OXYCODONE HCL TAB 10MG [id number],JAMIE L 12/01/2020 1:46:39 PM > VERIFIED. JEANINE ROSADO 12/01/2020 1:50:30 PM > ADMINISTERED MEDICATION: PAIN VALIUM TAB 10MG ORALLY ([id number])[id number],JAMIE L 12/01/2020 1:46:55 PM > VERIFIED. JEANINE ROSADO 12/01/2020 1:50:48 PM > ADMINISTERED PROCEDURES PAIN NURSING RECORD PROCEDURE IN ROOM 1540, PHYSICIAN IN ROOM 1604, START 1608, FINISH 1650, PHYSICIAN OUT OF ROOM 1653, OUT OF ROOM 1702, ECG NORMAL SINUS, PATIENT SHIELDED YES, SAFETY STRAP N/A, PREP CHLOROPREP Percy ROSADO RN, DRESSING TEGADERM DR. CRAFT LOC: 1. ALERT, ORIENTED, JEANINE ROSADO 12/01/2020 4:09:32 PM > RESP: 1. REGULAR, NO DYSPNEAASHLEE ELIZABETH 12/01/2020 4:09:36 PM > COLOR: 1. PINK, JEANINE ROSADO 12/01/2020 4:09:39 PM > SKIN: 1. WARM, DRY, JEANINE ROSADO 12/01/2020 4:09:42 PM > POSITION: 1. PRONE, JEANINE ROSADO 12/01/2020 4:03:44 PM > VITALS: 1405 P70 R18 02 95% BP126/58 AW 1420 P72 R18 0293% BP 111/53 AW 1435 P71 0294% BP113/55 R18 AW P86 0296% R18 BP 130/62 AW 1505 P81 0295% R18 BP 108/53 AW 155/66, 68, 16, 95%, JEANINE ROSADO 12/01/2020 4:04:06 PM > 132/61, 72, 16, 96% JEANINE ROSADO 12/01/2020 4:15:58 PM > , 140/66, 71, 16, 95%, JEANINE ROSADO 12/01/2020 4:33:30 PM > 141/67, 72, 16, 95%, JEANINE ROSADO 12/01/2020 4:38:24 PM > 146/71, 71, 16, 96%, JEANINE ROSADO 12/01/2020 4:53:35 PM > POST PROCEDURE 143/77 66 98%ONRA 18 RESP NOTES Percy ROSADO RN, Rosario HOWARD RN, JEANINE ROSADO 12/01/2020 4:04:17 PM > COMPLETION OF PROCEDURE APPOINTMENT: POST PAIN 5, DRESSING SITE DRY AND INTACT, IV N/A, GAIT STEADY, TEACHING COMPLETED, PATIENT ACKNOWLEDGES UNDERSTANDING YES, PROCEDURE APPOINTMENT COMPLETED AT 1721 PN RADIOFREQUENCY DATE OF PROCEDURE 12/01/2020 THERMO LESION RADIOFREQUENCY > 80 DEGREES : COOL - AVANOS SYSTEM SET AT 60* WITH TISSUE TARGET TEMP > 80* OR MORE. STRAIGHT NEEDLE SIDE: : RIGHT LEVELS: : L4-L5, L5-S1 NEEDLE/CATHETER/GAUGE: : 17 CANULA LENGTH: : 100 MM ACTIVE TIP: : 4 MM GROUNDING PAD PLACED ON AFFECTED SIDE (MUSCULAR AREA): : LUMBAR (POSTERIOR UPPER THIGH) 1 ST LEVEL: : L3, INITAL POSTIVE SENSORY RESPONE (50 HZ) 0.3, MOTOR RESPONSE (2 HZ-UP TO 3 VOLTS) 3.0 , PRE-LOCAL IMPEDENCE READING OHMS 435 , POST-LOCAL IMPEDENCE READING OHMS 310 , DURING RF IMPEDENCE READING OHMS 362 2 ND LEVEL: : L4, INITIAL POSITIVE SENSORY RESPONSE (50 HZ) 0.3, MOTOR RESPONSE (2 HZ- UP TO 3 VOLTS) 3.0 , PRE-LOCAL IMPEDENCE READING OHMS 320 , POST-LOCAL IMEPEDENCE READING OHMS 270 , DURING RF IMPEDENCE READING OHMS [address] LEVEL: : L5, INITIAL POSITIVE SENSORY RESPONSE (50 HZ) 0.4, MOTOR RESPONSE (2HZ- UP TO 3 VOLTS) 3.0 , PRE- LOCAL IMPEDENCE READING OHMS 390 , POST-LOCAL IMPEDENCE READING OHMS 374 , DURING RF IMPEDENCE READING OHMS 392 PRE PROCEDURE DIAGNOSES 1. LUMBAR SPONDYLOSIS. 2. LUMBOSACRAL SPONDYLOSIS POST PROCEDURE DIAGNOSES 1. LUMBAR SPONDYLOSIS. 2. LUMBOSACRAL SPONDYLOSIS PROCEDURE RIGHT L4-L5 AND RIGHT L5-S1 LUMBAR FACET RADIOFREQUENCY AVANOS COOL RADIOFREQUENCY SURGEON DR. KENDRA CRAFT TAX APPRAISER NONE ANESTHESIA LOCAL PRE PROCEDURE REPORT THE PATIENT HAS HISTORY OF CHRONIC LOW BACK PAIN. I EVALUATED THE PATIENT AND REVIEWED THE CHART. I WENT OVER THE RISKS, ALTERNATIVES, AND BENEFITS ASSOCIATED WITH THIS PROCEDURE. THE PATIENT WOULD LIKE TO PROCEED AND GAVE CONSENT TO PERFORM THE PROCEDURE. THE PATIENT DENIES UNEXPLAINABLE WEIGHT LOSS, FEVER, CHILLS OR NEW CHANGES IN URINARY OR BOWEL CONTROL. THE PATIENT IS COVID-19 NEGATIVE DESCRIPTION OF PROCEDURE THE PATIENT WAS BROUGHT TO THE PROCEDURE ROOM AND PLACED IN THE PRONE POSITION. A TIMEOUT WAS PERFORMED WHERE THE CONSENTED SITE WAS VERIFIED WITH EVERYONE IN THE ROOM. THE LUMBOSACRAL AREA WAS CLEANED WITH CHLORAPREP SOLUTION AND DRAPED ASEPTICALLY. THE PROCEDURE WAS DONE UNDER STERILE CONDITIONS. UNDER FLUOROSCOPIC GUIDANCE, TARGETS WERE SELECTED AT THE INTERSECTION OF THE RIGHT TRANSVERSE PROCESS OF L4, L5 AND ALA OF S1 WITH ITS RESPECTIVE SUPERIOR ARTICULAR PROCESS. I CONFIRMED AGAIN THE SITE OF TARGET. LIDOCAINE WAS USED TO NUMB THE SKIN AND THE SUBCUTANEOUS TISSUE BELOW IT. RADIOFREQUENCY CANNULAS, 17-GAUGE, 100 MM LONG WITH 4 MM ACTIVE TIP, WERE ADVANCED UNDER FLUOROSCOPIC GUIDANCE AND FOLLOWING PATIENT FEEDBACK UNTIL THE TARGET AREA WAS REACHED. POSITION OF THE CANNULA WAS VERIFIED WITH AP AND LATERAL VIEWS. AFTER PROPER POSITION OF THE CANNULA WAS ACHIEVED, WE WORKED WITH THE RIGHT SELECTED MEDIAN BRANCHES OF L3, L4 AND THE DORSAL RAMI OF L5. WE MEASURED THE CORRESPONDING IMPEDANCES AND MOTOR RESPONSES INDICATED IN THE RADIOFREQUENCY WORK SHEET. POSITION OF THE CANNULA WAS VERIFIED AGAIN WITH AP AND LATERAL VIEWS. LIDOCAINE 1%, 2 ML, WAS INJECTED AT EACH LEVEL. RADIOFREQUENCY WAS DONE AT EACH LEVEL USING THE [employer] SYSTEM-- COOLED RF-- WITH A SETTING AT THE MACHINE OF 60 DEGREES WITH A TARGET TISSUE TEMPERATURE OF 80 TO 90 DEGREES FOR A MINIMUM OF 150 SECONDS. AFTER RADIOFREQUENCY WAS DONE, THE PATIENT RECEIVED BUPIVACAINE 0.125%,1 ML, WITH DEXAMETHASONE 3 MG AT EACH SITE. THERE WAS NO EVIDENCE OF BLOOD, PARESTHESIA OR CEREBROSPINAL FLUID DURING THE PROCEDURE. THE PATIENT WAS SENT TO THE RECOVERY ROOMS. THE PATIENT WAS MOVING THE EXTREMITIES AND DOING WELL. EBL LESS THAN 5 ML. THERE WERE NO COMPLICATIONS DURING THE PROCEDURE. FLUOROSCOPY TIME WAS 2 MINUTE 24 SECONDS POST PROCEDURE NOTE THE PATIENT WILL BE SEEN IN A FOLLOW UP IN THE NEXT FEW WEEKS. INSTRUCTIONS WERE GIVEN, QUESTIONS WERE ANSWERED, AND THE PATIENT EXPRESSED UNDERSTANDING AND AGREES WITH THE PLAN. . I, CHINYERE AMARO, DOCUMENTED THE ABOVE INFORMATION ACTING A SCRIBE FOR DR. CRAFT. I HAVE REVIEWED THE ABOVE DOCUMENT, WRITTEN BY ARIAN CASANOVA, AND I VERIFY THAT IT IS ACCURATE PROCEDURE CODES 21455 DESTROY LUMB/SAC FACET JNT, [place]IFI[place]: [place] [address] DESTROY L/S FACET JNT ADDL, MODIFIERS: RT DISPOSITION & COMMUNICATION FOLLOW UP FOLLOW UP WITH STEREOPTICIAN (REASON: POST RIGHT LUMBAR COOL RADIOFREQUENCY L4-L5, L5-S1) ELECTRONICALLY SIGNED BY KENDRA CRAFT MD, MD ON 12/02/2020 AT 12:37 PM EDT DISCLAIMER : THIS IS A VISIT SUMMARY EXTRACTED FROM THE [employer] CHART. IT IS NOT A COPY OF THE [employer] PROGRESS NOTE. ZINA
== END ==
LOC: M PAIN 13:00
PROVIDERS: ATTEND Anesthesiology
DX: M47.816 Spondylosis without myelopathy or radiculopathy, lumbar region (principal); M47.817 Spondylosis without myelopathy or radiculopathy, lumbosacral region; K21.9 Gastro-esophageal reflux disease without esophagitis; E55.9 Vitamin D deficiency, unspecified; F17.210 Nicotine dependence, cigarettes, uncomplicated; Z88.2 Allergy status to sulfonamides; Z88.6 Allergy status to analgesic agent; Z88.8 Allergy status to other drugs, medicaments and biological substances; Z91.09 Other allergy status, other than to drugs and biological substances; Z79.899 Other long term (current) drug therapy
CPT/HCPCS: 64635; 64636; J1100

== ENCOUNTER → 2020-12-23 | Outpatient (CLI) | payer MEDICARE ==
[~2020-12-23] MED LIST changes: -BUPIVACAINE HCL 0.25% 30ML VIAL As Ordered ONE; -LIDOCAINE 1% SDV 30ML VIAL As Ordered ONE; -dexameTHASONE 10MG/1ML VIAL PRES.FREE (J1100 PER 1MG) As Ordered ONE; -diazePAM 5MG TABLET As Ordered ONE; -diphenhydrAMINE 25MG CAP As Ordered ONE; -oxyCODONE 5MG TAB As Ordered ONE
== END ==
LOC: M PAIN 14:00
PROVIDERS: ATTEND Anesthesiology
DX: G89.29 Other chronic pain (principal); M47.816 Spondylosis without myelopathy or radiculopathy, lumbar region; M79.7 Fibromyalgia; M19.90 Unspecified osteoarthritis, unspecified site; K21.9 Gastro-esophageal reflux disease without esophagitis; R10.13 Epigastric pain; E78.5 Hyperlipidemia, unspecified; N95.2 Postmenopausal atrophic vaginitis; M85.80 Other specified disorders of bone density and structure, unspecified site; E55.9 Vitamin D deficiency, unspecified; J32.9 Chronic sinusitis, unspecified; K58.0 Irritable bowel syndrome with diarrhea; F32.9 Major depressive disorder, single episode, unspecified; H04.123 Dry eye syndrome of bilateral lacrimal glands; G47.00 Insomnia, unspecified; F17.210 Nicotine dependence, cigarettes, uncomplicated; Z79.891 Long term (current) use of opiate analgesic; Z79.899 Other long term (current) drug therapy; Z88.8 Allergy status to other drugs, medicaments and biological substances; Z88.2 Allergy status to sulfonamides

== ENCOUNTER → 2021-01-17 | Outpatient (CLI) | payer MEDICARE ==
[2021-01-17 11:00] LABS: EOS # 0.1 10^3/uL (0.0-0.5); EOS % 1.8 % (0.0-3.0); HEMOGLOBIN 12.2 g/dl (12.0-15.5); LYMPH # 1.2 10^3/uL (1.5-5.0); LYMPH % 32.2 % (24.0-44.0); MEAN CORPUSCULAR HEMOGLOBIN 29.2 pg (27.0-33.0); MEAN CORPUSCULAR HGB CONC 31.3 g/dl (32.0-36.5); MEAN CORPUSCULAR VOLUME 93.3 fl (80.0-96.0); MONO # 0.5 10^3/uL (0.0-0.8); MONO % 12.5 % (2.0-8.0); NEUTROPHILS % 52.2 % (36.0-66.0); PLATELET COUNT, AUTOMATED 200 10^3/uL (150-450); RED BLOOD COUNT 4.18 10^6/uL (4.00-5.40); WHITE BLOOD COUNT 3.9 10^3/uL (4.0-10.0)
[2021-01-17 11:30] LABS: HEMOGLOBIN A1c 5.5 %
[2021-01-17 11:47] LABS: ALBUMIN 3.7 GM/DL (3.2-5.2); ALT/SGPT 21 U/L (12-78); BILIRUBIN,TOTAL 0.5 MG/DL (0.2-1.0); BLOOD UREA NITROGEN 10 MG/DL (7-18); CARBON DIOXIDE LEVEL 30 MEQ/L (21-32); CHLORIDE LEVEL 106 MEQ/L (98-107); CREATININE FOR GFR 0.76 MG/DL (0.55-1.30); FERRITIN 7 NG/ML (8-252); GLOMERULAR FILTRATION RATE > 60.0 (>45); GLUCOSE, FASTING 92 MG/DL (70-100); POTASSIUM SERUM 4.4 MEQ/L (3.5-5.1); SODIUM LEVEL 141 MEQ/L (136-145); TOTAL PROTEIN 6.8 GM/DL (6.4-8.2)
[2021-01-17 11:48] LABS: MALB URINE SIEMENS 5.8 MG/L; MAU/CREAT RATIO 4.9 MCG/MG (0.0-30.0)
== END ==
LOC: M PLALAB 08:08
PROVIDERS: ATTEND Family Medicine
DX: R73.01 Impaired fasting glucose (principal); M79.7 Fibromyalgia

== ENCOUNTER → 2021-01-19 | Outpatient (CLI) | payer MEDICARE | LOC: M PAIN 10:00 | PROVIDERS: ATTEND Anesthesiology | DX: M96.1 Postlaminectomy syndrome, not elsewhere classified (principal); M51.16 Intervertebral disc disorders with radiculopathy, lumbar region; K21.9 Gastro-esophageal reflux disease without esophagitis; E78.5 Hyperlipidemia, unspecified; E55.9 Vitamin D deficiency, unspecified; Z79.891 Long term (current) use of opiate analgesic; Z79.899 Other long term (current) drug therapy; F17.210 Nicotine dependence, cigarettes, uncomplicated; Z88.2 Allergy status to sulfonamides; Z88.8 Allergy status to other drugs, medicaments and biological substances ==

== ENCOUNTER → 2021-01-24 | Outpatient (CLI) | payer MEDICARE ==
--- NOTE | 2021-01-24 10:43 | REP ---
INDICATION: SCREENING. COMPARISON: Multiple the latest 11/14/2019 also low-dose screening CT of the lungs TECHNIQUE: Axial noncontrast images from the thoracic inlet to the upper abdomen using low-dose lung screening technique (LDCT). As per the protocol only lung window images were sent to the read station for interpretation FINDINGS: There is biapical pleuroparenchymal scarring status quo. No new abnormal nodules, masses, or opacities have developed. There is stable cylindrical bronchiectasis. Grossly, the mediastinum and pulmonary kaity are unchanged. Grossly, the imaged upper abdomen and imaged osseous structures are unchanged. IMPRESSION: Unchanged lung rads category 2 low-dose screening CT examination of the lungs. Follow-up as per the revised Fleischner society criteria. <Electronically signed by Edwar Limon > 01/24/21 [id number]
== END ==
LOC: M RAD 10:21
PROVIDERS: ATTEND Family Medicine
DX: Z12.2 Encounter for screening for malignant neoplasm of respiratory organs (principal); F17.218 Nicotine dependence, cigarettes, with other nicotine-induced disorders

== ENCOUNTER → 2021-02-23 | Outpatient (CLI) | payer MEDICARE | LOC: M LABSMTC 10:45 | PROVIDERS: ATTEND Anesthesiology | DX: Z01.812 Encounter for preprocedural laboratory examination (principal); Z20.822 Contact with and (suspected) exposure to COVID-19 ==

== ENCOUNTER → 2021-02-28 | Outpatient (CLI) | payer MEDICARE ==
[~2021-02-28] MED LIST changes: +ISOVUE-M 300 61% 15ML VIAL As Ordered ONE; +LIDOCAINE 1% SDV 30ML VIAL As Ordered ONE; +diazePAM 5MG TABLET As Ordered ONE; +diphenhydrAMINE 25MG CAP As Ordered ONE; +methylPREDNISolone SUSP 40MG/ML 1ML VIAL (DEPO MEDROL) As Ordered ONE; +oxyCODONE 5MG TAB As Ordered ONE
--- NOTE | 2021-02-28 12:09 | REP ---
INDICATION: LUMBAR EPIDURAL STEROID INJECTION. COMPARISON: None. TECHNIQUE: Two C-arm views lower lumbar spine. FINDINGS: Posterior fusion hardware is seen at L4-5. Needle is seen at the L5 level. A small amount of contrast is injected. IMPRESSION: 10 seconds of fluoroscopy time was utilized. <Electronically signed by Harish Kennedy > 02/28/21 0303
== END ==
LOC: M PAIN 10:00
PROVIDERS: ATTEND Anesthesiology
DX: M96.1 Postlaminectomy syndrome, not elsewhere classified (principal); M51.16 Intervertebral disc disorders with radiculopathy, lumbar region; K21.9 Gastro-esophageal reflux disease without esophagitis; E78.5 Hyperlipidemia, unspecified; E55.9 Vitamin D deficiency, unspecified; Z79.891 Long term (current) use of opiate analgesic; Z79.899 Other long term (current) drug therapy; F17.210 Nicotine dependence, cigarettes, uncomplicated; Z88.2 Allergy status to sulfonamides; Z88.8 Allergy status to other drugs, medicaments and biological substances; N95.2 Postmenopausal atrophic vaginitis; M85.80 Other specified disorders of bone density and structure, unspecified site; H04.123 Dry eye syndrome of bilateral lacrimal glands; F33.9 Major depressive disorder, recurrent, unspecified
CPT/HCPCS: 62323; J1030; Q9967

== ENCOUNTER → 2021-03-08 | Outpatient (REF) | payer MEDICARE ==
[~2021-03-08] MED LIST changes: -ISOVUE-M 300 61% 15ML VIAL As Ordered ONE; -LIDOCAINE 1% SDV 30ML VIAL As Ordered ONE; -diazePAM 5MG TABLET As Ordered ONE; -diphenhydrAMINE 25MG CAP As Ordered ONE; -methylPREDNISolone SUSP 40MG/ML 1ML VIAL (DEPO MEDROL) As Ordered ONE; -oxyCODONE 5MG TAB As Ordered ONE
== END ==
LOC: M LAB REF 10:17
PROVIDERS: ATTEND Family Medicine
DX: L82.1 Other seborrheic keratosis (principal)

== ENCOUNTER → 2021-03-30 | Outpatient (CLI) | payer MEDICARE | LOC: M PAIN 10:15 | PROVIDERS: ATTEND Anesthesiology | DX: M96.1 Postlaminectomy syndrome, not elsewhere classified (principal); K21.9 Gastro-esophageal reflux disease without esophagitis; E55.9 Vitamin D deficiency, unspecified; F17.210 Nicotine dependence, cigarettes, uncomplicated; Z86.59 Personal history of other mental and behavioral disorders; Z88.2 Allergy status to sulfonamides; Z88.6 Allergy status to analgesic agent; Z88.8 Allergy status to other drugs, medicaments and biological substances; Z79.899 Other long term (current) drug therapy ==

== ENCOUNTER → 2021-04-27 | Outpatient (CLI) | payer MEDICARE | LOC: M LABSMTC 12:38 | PROVIDERS: ATTEND Pediatrics | DX: Z01.812 Encounter for preprocedural laboratory examination (principal); Z11.52 Encounter for screening for COVID-19 | CPT/HCPCS: C9803; U0003 ==

== ENCOUNTER 2021-07-09 17:53 | Emergency (ER) | payer MEDICARE ==
[~2021-07-09] VITALS: Ht 160 cm; Wt 53.6 kg
[2021-07-09] MEDS ORDERED: CARI1TAB7 PO (18:17)
[2021-07-09] MEDS ORDERED: PENT10CA PO (18:17)
[2021-07-09] MEDS ORDERED: DEXI60CA2 PO (18:17)
[2021-07-09] MEDS ORDERED: LEXA1TAB PO (18:17)
[2021-07-09] MEDS ORDERED: ACTE162I SQ (18:17)
[2021-07-09] MEDS ORDERED: COLE625TAB PO (18:17)
[2021-07-09] MEDS ORDERED: SUCR1TAB56 PO (18:17)
[2021-07-09 19:19] LABS: BASO % 1.5 % (0.0-1.0); EOS % 0.7 % (0.0-3.0); HEMATOCRIT 34.2 % (36.0-47.0); HEMOGLOBIN 10.8 g/dl (12.0-15.5); LYMPH # 0.9 10^3/uL (1.5-5.0); LYMPH % 34.7 % (24.0-44.0); MEAN CORPUSCULAR HEMOGLOBIN 29.3 pg (27.0-33.0); MEAN CORPUSCULAR HGB CONC 31.6 g/dl (32.0-36.5); MEAN CORPUSCULAR VOLUME 92.7 fl (80.0-96.0); MONO # 0.3 10^3/uL (0.0-0.8); MONO % 12.2 % (2.0-8.0); NEUTROPHILS # 1.4 10^3/uL (1.5-8.5); NEUTROPHILS % 50.9 % (36.0-66.0); PLATELET COUNT, AUTOMATED 127 10^3/uL (150-450); RED BLOOD COUNT 3.69 10^6/uL (4.00-5.40); WHITE BLOOD COUNT 2.7 10^3/uL (4.0-10.0)
[2021-07-09 19:21] LABS: CK-MB VALUE MASS 1.6 NG/ML (<3.6); MB/CK RELATIVE INDEX 1.44 (< OR =4)
[2021-07-09 19:29] LABS: ALBUMIN 3.8 GM/DL (3.2-5.2); ALT/SGPT 29 U/L (12-78); BILIRUBIN,DIRECT 0.1 MG/DL (0.0-0.2); BILIRUBIN,TOTAL 0.4 MG/DL (0.2-1.0); BLOOD UREA NITROGEN 9 MG/DL (7-18); CALCIUM LEVEL 8.7 MG/DL (8.8-10.2); CARBON DIOXIDE LEVEL 30 MEQ/L (21-32); CHLORIDE LEVEL 106 MEQ/L (98-107); CREATININE FOR GFR 0.73 MG/DL (0.55-1.30); GLOMERULAR FILTRATION RATE > 60.0 (>45); GLUCOSE, FASTING 93 MG/DL (70-100); LIPASE 83 U/L (73-393); MAGNESIUM LEVEL 1.6 MG/DL (1.8-2.4); POTASSIUM SERUM 4.3 MEQ/L (3.5-5.1); SODIUM LEVEL 140 MEQ/L (136-145); TOTAL PROTEIN 6.5 GM/DL (6.4-8.2)
[2021-07-09] MEDS ORDERED: ISOVUE-370 76% 100ML VIAL As Ordered ONE (19:52)
[2021-07-09 20:34] LABS: CK-MB VALUE MASS 1.7 NG/ML (<3.6); MB/CK RELATIVE INDEX 1.5 (< OR =4)
[2021-07-09 22:01] VITALS: BP 116/56
[2021-07-09 22:33] LABS: CK-MB VALUE MASS 1.4 NG/ML (<3.6); MB/CK RELATIVE INDEX 1.28 (< OR =4)
== END 2021-07-09 23:25 | disposition home or self-care (01) ==
LOC: M ED 17:53
DX: R00.2 Palpitations (principal); R07.89 Other chest pain; R06.02 Shortness of breath; F41.9 Anxiety disorder, unspecified; K21.9 Gastro-esophageal reflux disease without esophagitis; M06.9 Rheumatoid arthritis, unspecified; M19.90 Unspecified osteoarthritis, unspecified site; M48.00 Spinal stenosis, site unspecified; M79.7 Fibromyalgia; M51.9 Unspecified thoracic, thoracolumbar and lumbosacral intervertebral disc disorder; M43.22 Fusion of spine, cervical region; Z79.899 Other long term (current) drug therapy; Z88.2 Allergy status to sulfonamides; Z88.8 Allergy status to other drugs, medicaments and biological substances; Z91.018 Allergy to other foods; F17.210 Nicotine dependence, cigarettes, uncomplicated; F12.20 Cannabis dependence, uncomplicated
CPT/HCPCS: 36415; 71046; 71275; 80048; 80076; 82550; 82553; 83690; 83735; 84443; 84484; 85025; 85379; 93005; 93041; 94760; 99285; Q9967

== ENCOUNTER → 2021-07-14 | Outpatient (CLI) | payer MEDICARE ==
[~2021-07-14] MED LIST changes: +ACTE162I SQ; +CARI1TAB7 PO; +COLE625TAB PO; +DEXI60CA2 PO; +LEXA1TAB PO; +PENT10CA PO; +SUCR1TAB56 PO
[2021-07-14 13:01] LABS: BASO # 0.1 10^3/uL (0.0-0.2); BASO % 1.6 % (0.0-1.0); HEMATOCRIT 39.5 % (36.0-47.0); HEMOGLOBIN 12.3 g/dl (12.0-15.5); LYMPH # 1.4 10^3/uL (1.5-5.0); LYMPH % 43.8 % (24.0-44.0); MEAN CORPUSCULAR HEMOGLOBIN 29.6 pg (27.0-33.0); MEAN CORPUSCULAR HGB CONC 31.1 g/dl (32.0-36.5); MONO # 0.3 10^3/uL (0.0-0.8); MONO % 10.8 % (2.0-8.0); NEUTROPHILS # 1.4 10^3/uL (1.5-8.5); NEUTROPHILS % 42.8 % (36.0-66.0); PLATELET COUNT, AUTOMATED 150 10^3/uL (150-450); RED BLOOD COUNT 4.16 10^6/uL (4.00-5.40); WHITE BLOOD COUNT 3.2 10^3/uL (4.0-10.0)
[2021-07-14 14:32] LABS: FERRITIN 10 NG/ML (8-252); NT-PRO BNP 86 PG/ML (<125)
== END ==
LOC: M PLALAB 11:44
PROVIDERS: ATTEND Family Medicine
DX: D50.9 Iron deficiency anemia, unspecified (principal)

== ENCOUNTER → 2021-07-18 | Outpatient (CLI) | payer MEDICARE | LOC: M PLALAB 11:17 | PROVIDERS: ATTEND Family Medicine | DX: Z79.899 Other long term (current) drug therapy (principal); Z80.0 Family history of malignant neoplasm of digestive organs ==

== ENCOUNTER 2021-07-25 11:59 | Emergency (ER) | payer MEDICARE ==
[~2021-07-25] VITALS: Ht 160 cm; Wt 52.1 kg
[2021-07-25] MEDS ORDERED: FERR325T3 (12:19)
[2021-07-25 15:00] LABS: BASO % 0.7 % (0.0-1.0); EOS % 0.7 % (0.0-3.0); HEMATOCRIT 38.1 % (36.0-47.0); HEMOGLOBIN 12.1 g/dl (12.0-15.5); LYMPH # 1.3 10^3/uL (1.5-5.0); LYMPH % 42.4 % (24.0-44.0); MEAN CORPUSCULAR HEMOGLOBIN 29.9 pg (27.0-33.0); MEAN CORPUSCULAR HGB CONC 31.8 g/dl (32.0-36.5); MEAN CORPUSCULAR VOLUME 94.1 fl (80.0-96.0); MONO # 0.4 10^3/uL (0.0-0.8); MONO % 12.2 % (2.0-8.0); NEUTROPHILS # 1.3 10^3/uL (1.5-8.5); PLATELET COUNT, AUTOMATED 157 10^3/uL (150-450); RED BLOOD COUNT 4.05 10^6/uL (4.00-5.40)
[2021-07-25] MEDS ORDERED: NS 1,000 ML IV ONE (15:30)
[2021-07-25] MEDS ORDERED: PANTOPRAZOLE 40MG VIAL IV ONE (15:30)
[2021-07-25] MEDS ORDERED: ONDANSETRON 4MG/2ML VIAL IV ONE (15:30)
[2021-07-25] MEDS ORDERED: KETOROLAC 30 MG/ML 1ML VIAL IV ONE (15:30)
[2021-07-25 15:38] LABS: ALBUMIN 4.3 GM/DL (3.2-5.2); ALT/SGPT 33 U/L (12-78); BILIRUBIN,DIRECT 0.1 MG/DL (0.0-0.2); BILIRUBIN,TOTAL 0.6 MG/DL (0.2-1.0); BLOOD UREA NITROGEN 6 MG/DL (7-18); CALCIUM LEVEL 9.5 MG/DL (8.8-10.2); CARBON DIOXIDE LEVEL 30 MEQ/L (21-32); CHLORIDE LEVEL 109 MEQ/L (98-107); CREATININE FOR GFR 0.79 MG/DL (0.55-1.30); GLOMERULAR FILTRATION RATE > 60.0 (>45); GLUCOSE, FASTING 85 MG/DL (70-100); LIPASE 77 U/L (73-393); POTASSIUM SERUM 4.4 MEQ/L (3.5-5.1); SODIUM LEVEL 142 MEQ/L (136-145); TOTAL PROTEIN 7.1 GM/DL (6.4-8.2)
[2021-07-25 16:14] LABS: INR 0.92; PROTHROMBIN TIME 12.8 SECONDS (12.7-14.5)
[2021-07-25] MEDS ORDERED: ISOVUE-370 76% 100ML VIAL As Ordered ONE (16:20)
[2021-07-25 17:15] VITALS: BP 130/56
[2021-07-25] MEDS ORDERED: FAMO20TA PO (17:35)
[2021-07-25] MEDS ORDERED: ACIP1TAB PO (17:35)
== END 2021-07-25 17:51 | disposition home or self-care (01) ==
LOC: M ED 11:59
DX: K29.70 Gastritis, unspecified, without bleeding (principal); K21.9 Gastro-esophageal reflux disease without esophagitis; K58.9 Irritable bowel syndrome, unspecified; Z79.899 Other long term (current) drug therapy; Z88.1 Allergy status to other antibiotic agents; Z88.2 Allergy status to sulfonamides; Z88.8 Allergy status to other drugs, medicaments and biological substances; F17.210 Nicotine dependence, cigarettes, uncomplicated
CPT/HCPCS: 74177; 80048; 80076; 83690; 84484; 85025; 85610; 85730; 96361; 96374; 96375; 99284; J1885; J2405; Q9967

== ENCOUNTER → 2021-08-18 | Outpatient (CLI) | payer MEDICARE ==
[~2021-08-18] MED LIST changes: +ACIP1TAB PO; +FAMO20TA PO; +FERR325T3
[2021-08-18 10:24] LABS: BASO % 1.2 % (0.0-1.0); EOS % 0.9 % (0.0-3.0); HEMATOCRIT 42.2 % (36.0-47.0); HEMOGLOBIN 13.5 g/dl (12.0-15.5); LYMPH # 1.4 10^3/uL (1.5-5.0); MEAN CORPUSCULAR HEMOGLOBIN 30.8 pg (27.0-33.0); MEAN CORPUSCULAR VOLUME 96.1 fl (80.0-96.0); MONO # 0.4 10^3/uL (0.0-0.8); MONO % 11.5 % (2.0-8.0); NEUTROPHILS # 1.4 10^3/uL (1.5-8.5); NEUTROPHILS % 42.1 % (36.0-66.0); PLATELET COUNT, AUTOMATED 160 10^3/uL (150-450); RED BLOOD COUNT 4.39 10^6/uL (4.00-5.40); WHITE BLOOD COUNT 3.2 10^3/uL (4.0-10.0)
[2021-08-18 10:48] LABS: ALBUMIN 4.3 GM/DL (3.2-5.2); ALT/SGPT 33 U/L (12-78); BILIRUBIN,TOTAL 0.7 MG/DL (0.2-1.0); BLOOD UREA NITROGEN 11 MG/DL (7-18); CALCIUM LEVEL 9.6 MG/DL (8.8-10.2); CARBON DIOXIDE LEVEL 33 MEQ/L (21-32); CHLORIDE LEVEL 107 MEQ/L (98-107); CREATININE FOR GFR 0.87 MG/DL (0.55-1.30); FERRITIN 49 NG/ML (8-252); GLOMERULAR FILTRATION RATE > 60.0 (>45); GLUCOSE, FASTING 82 MG/DL (70-100); NT-PRO BNP 65 PG/ML (<125); POTASSIUM SERUM 4.5 MEQ/L (3.5-5.1); SODIUM LEVEL 142 MEQ/L (136-145)
[2021-08-18 10:55] LABS: HEMOGLOBIN A1c 5.1 %
== END ==
LOC: M LAB 07:31 → M PLALAB 07:31
PROVIDERS: ATTEND Family Medicine
DX: D50.9 Iron deficiency anemia, unspecified (principal); R73.01 Impaired fasting glucose

== ENCOUNTER → 2021-08-29 | Outpatient (CLI) | payer MEDICARE ==
[~2021-08-29] MED LIST changes: +CALCCAP4 PO; +COLE625T PO; +ESOM1CAP5 PO; +FERR325T3 PO; +FLUT15.819; +VITA100093 PO; +vitamin b12 PO
== END ==
LOC: M LABSMTC 10:03
PROVIDERS: ATTEND Anesthesiology
DX: Z11.52 Encounter for screening for COVID-19 (principal); Z20.822 Contact with and (suspected) exposure to COVID-19

== ENCOUNTER 2021-09-02 10:07 | Day surgery (SDC) | payer MEDICARE ==
[~2021-09-02] VITALS: Ht 162.6 cm; Wt 49.9 kg
[~2021-09-02 10:07] MED LIST changes: +NS 1,000 ML IV ONE
[2021-09-02] MEDS ORDERED: LIDOCAINE 2% 100MG/5ML SDV (FOR ANES.) As Ordered ONE (11:18)
[2021-09-02] MEDS ORDERED: propofoL 200 MG/20 ML VIAL As Ordered ONE ×2 (11:18→12:47)
[2021-09-02] MEDS ORDERED: fentaNYL 100 MCG/2 ML INJECTION As Ordered ONE (12:21)
[2021-09-02] MEDS ORDERED: GLUCAGON INJ 1MG VIAL As Ordered ONE (12:44)
[2021-09-02 13:20] VITALS: BP 108/56
== END 2021-09-02 13:36 | disposition home or self-care (01) ==
LOC: M OPP 10:07
PROVIDERS: ATTEND Internal Medicine Gastroenterology
DX: D12.0 Benign neoplasm of cecum (principal); K57.30 Diverticulosis of large intestine without perforation or abscess without bleeding; K64.8 Other hemorrhoids; R10.9 Unspecified abdominal pain; Z86.010 Personal history of colon polyps; Z80.0 Family history of malignant neoplasm of digestive organs; R93.3 Abnormal findings on diagnostic imaging of other parts of digestive tract; K31.89 Other diseases of stomach and duodenum; R12 Heartburn; Z79.891 Long term (current) use of opiate analgesic; Z79.899 Other long term (current) drug therapy; Z88.2 Allergy status to sulfonamides; Z88.8 Allergy status to other drugs, medicaments and biological substances; F17.210 Nicotine dependence, cigarettes, uncomplicated
CPT/HCPCS: 43239; 45385; 88305; J1610; J3010

== ENCOUNTER → 2021-10-14 | Outpatient (CLI) | payer MEDICARE ==
[~2021-10-14] MED LIST changes: -NS 1,000 ML IV ONE
== END ==
LOC: M WHC 09:19
PROVIDERS: ATTEND Advanced Practice Midwife
DX: Z12.31 Encounter for screening mammogram for malignant neoplasm of breast (principal); Z80.0 Family history of malignant neoplasm of digestive organs; Z86.018 Personal history of other benign neoplasm; Z92.29 Personal history of other drug therapy

== ENCOUNTER → 2021-10-14 | Outpatient (CLI) | payer MEDICARE | LOC: M WHC 10:37 | PROVIDERS: ATTEND Family Medicine | DX: Z13.820 Encounter for screening for osteoporosis (principal); M85.851 Other specified disorders of bone density and structure, right thigh; M85.852 Other specified disorders of bone density and structure, left thigh ==

== ENCOUNTER → 2021-11-20 | Outpatient (CLI) | payer MEDICARE | LOC: M LABSMTC 10:28 | PROVIDERS: ATTEND Anesthesiology | DX: Z11.52 Encounter for screening for COVID-19 (principal) ==

== ENCOUNTER → 2021-11-22 | Outpatient (CLI) | payer MEDICARE ==
[~2021-11-22] MED LIST changes: +BUPIVACAINE HCL 0.25% 30ML VIAL As Ordered ONE; +ISOVUE-M 300 61% 15ML VIAL As Ordered ONE; +LIDOCAINE 1% SDV 30ML VIAL As Ordered ONE; +dexameTHASONE 10MG/1ML VIAL PRES.FREE (J1100 PER 1MG) As Ordered ONE; +diazePAM 5MG TABLET As Ordered ONE; +diphenhydrAMINE 25MG CAP As Ordered ONE; +oxyCODONE 5MG TAB As Ordered ONE
== END ==
LOC: M PAIN 13:30
PROVIDERS: ATTEND Anesthesiology
DX: M51.16 Intervertebral disc disorders with radiculopathy, lumbar region (principal); M06.9 Rheumatoid arthritis, unspecified; M19.90 Unspecified osteoarthritis, unspecified site; M79.7 Fibromyalgia; N30.10 Interstitial cystitis (chronic) without hematuria; K21.9 Gastro-esophageal reflux disease without esophagitis; R10.13 Epigastric pain; E78.5 Hyperlipidemia, unspecified; Z86.010 Personal history of colon polyps; Z98.1 Arthrodesis status; N95.2 Postmenopausal atrophic vaginitis; M85.80 Other specified disorders of bone density and structure, unspecified site; E55.9 Vitamin D deficiency, unspecified; Z87.440 Personal history of urinary (tract) infections; K52.9 Noninfective gastroenteritis and colitis, unspecified; H04.123 Dry eye syndrome of bilateral lacrimal glands; G47.00 Insomnia, unspecified; Z79.891 Long term (current) use of opiate analgesic; Z79.899 Other long term (current) drug therapy; F17.210 Nicotine dependence, cigarettes, uncomplicated; Z88.2 Allergy status to sulfonamides; Z88.8 Allergy status to other drugs, medicaments and biological substances
CPT/HCPCS: 64483; J1100; Q9967

== ENCOUNTER → 2021-12-25 | Outpatient (CLI) | payer MEDICARE ==
[~2021-12-25] MED LIST changes: -BUPIVACAINE HCL 0.25% 30ML VIAL As Ordered ONE; -ISOVUE-M 300 61% 15ML VIAL As Ordered ONE; -LIDOCAINE 1% SDV 30ML VIAL As Ordered ONE; -dexameTHASONE 10MG/1ML VIAL PRES.FREE (J1100 PER 1MG) As Ordered ONE; -diazePAM 5MG TABLET As Ordered ONE; -diphenhydrAMINE 25MG CAP As Ordered ONE; -oxyCODONE 5MG TAB As Ordered ONE
== END ==
LOC: M LABSMTC 10:19
PROVIDERS: ATTEND Pediatrics
DX: Z20.822 Contact with and (suspected) exposure to COVID-19 (principal)
CPT/HCPCS: 87635; C9803

== ENCOUNTER → 2022-01-18 | Outpatient (CLI) | payer MEDICARE ==
[~2022-01-18] MED LIST changes: +COLE625T17 PO; -COLE625TAB PO
== END ==
LOC: M PLALAB 11:06 → M PLAIMG 11:06
PROVIDERS: ATTEND Physician Assistant
DX: R05.3 Chronic cough (principal); U09.9 Post COVID-19 condition, unspecified; R09.81 Nasal congestion

== ENCOUNTER → 2022-01-27 | Outpatient (CLI) | payer MEDICARE | LOC: M PAIN 10:00 | PROVIDERS: ATTEND Anesthesiology | DX: M96.1 Postlaminectomy syndrome, not elsewhere classified (principal); G89.29 Other chronic pain; M79.7 Fibromyalgia; K21.9 Gastro-esophageal reflux disease without esophagitis; E55.9 Vitamin D deficiency, unspecified; F17.210 Nicotine dependence, cigarettes, uncomplicated; Z86.59 Personal history of other mental and behavioral disorders; Z88.2 Allergy status to sulfonamides; Z88.6 Allergy status to analgesic agent; Z88.8 Allergy status to other drugs, medicaments and biological substances; Z79.899 Other long term (current) drug therapy ==

== ENCOUNTER → 2022-02-07 | Outpatient (CLI) | payer MEDICARE | LOC: M PAIN 11:30 | PROVIDERS: ATTEND Anesthesiology | DX: M96.1 Postlaminectomy syndrome, not elsewhere classified (principal); G89.29 Other chronic pain; M06.9 Rheumatoid arthritis, unspecified; M79.7 Fibromyalgia; K21.9 Gastro-esophageal reflux disease without esophagitis; E55.9 Vitamin D deficiency, unspecified; F17.210 Nicotine dependence, cigarettes, uncomplicated; Z86.59 Personal history of other mental and behavioral disorders; Z88.2 Allergy status to sulfonamides; Z88.6 Allergy status to analgesic agent; Z88.8 Allergy status to other drugs, medicaments and biological substances; Z79.899 Other long term (current) drug therapy ==

== ENCOUNTER → 2022-02-10 | Outpatient (CLI) | payer MEDICARE | LOC: M RAD 09:25 | PROVIDERS: ATTEND Family Medicine | DX: Z12.2 Encounter for screening for malignant neoplasm of respiratory organs (principal); F17.210 Nicotine dependence, cigarettes, uncomplicated ==

== ENCOUNTER → 2022-02-22 | Outpatient (CLI) | payer MEDICARE ==
[2022-02-22 11:29] LABS: BASO % 0.8 % (0.0-1.0); EOS # 0.1 10^3/uL (0.0-0.5); EOS % 1.4 % (0.0-3.0); HEMATOCRIT 42.3 % (36.0-47.0); HEMOGLOBIN 13.5 g/dl (12.0-15.5); LYMPH # 1.4 10^3/uL (1.5-5.0); LYMPH % 28.3 % (24.0-44.0); MEAN CORPUSCULAR HEMOGLOBIN 33.3 pg (27.0-33.0); MEAN CORPUSCULAR HGB CONC 31.9 g/dl (32.0-36.5); MEAN CORPUSCULAR VOLUME 104.4 fl (80.0-96.0); MONO # 0.4 10^3/uL (0.0-0.8); MONO % 7.9 % (2.0-8.0); NEUTROPHILS # 3.1 10^3/uL (1.5-8.5); NEUTROPHILS % 61.4 % (36.0-66.0); PLATELET COUNT, AUTOMATED 227 10^3/uL (150-450); RED BLOOD COUNT 4.05 10^6/uL (4.00-5.40); WHITE BLOOD COUNT 5.1 10^3/uL (4.0-10.0)
[2022-02-22 11:46] LABS: HEMOGLOBIN A1c 5.4 %
[2022-02-22 12:26] LABS: ALBUMIN 3.8 GM/DL (3.2-5.2); ALT/SGPT 24 U/L (12-78); BILIRUBIN,TOTAL 0.4 MG/DL (0.2-1.0); BLOOD UREA NITROGEN 8 MG/DL (7-18); CALCIUM LEVEL 9.1 MG/DL (8.8-10.2); CARBON DIOXIDE LEVEL 33 MEQ/L (21-32); CHLORIDE LEVEL 106 MEQ/L (98-107); FERRITIN 16 NG/ML (8-252); GLOMERULAR FILTRATION RATE > 60.0 (>45); GLUCOSE, FASTING 90 MG/DL (70-100); POTASSIUM SERUM 4.5 MEQ/L (3.5-5.1); SODIUM LEVEL 141 MEQ/L (136-145); TOTAL PROTEIN 6.7 GM/DL (6.4-8.2)
[2022-02-24 16:10] LABS: SOLUBLE TRANSFERRIN RECEPTOR 15.9 nmol/L (12.2-27.3); TISSUE TRANSGLUTAMINASE IgA <2 U/mL (0-3)
== END ==
LOC: M PLALAB 07:56
PROVIDERS: ATTEND Family Medicine
DX: D50.9 Iron deficiency anemia, unspecified (principal); R73.01 Impaired fasting glucose

== ENCOUNTER → 2022-02-23 | Outpatient (CLI) | payer MEDICARE | LOC: M PLARAD 14:33 | PROVIDERS: ATTEND Anesthesiology | DX: M96.1 Postlaminectomy syndrome, not elsewhere classified (principal); M43.14 Spondylolisthesis, thoracic region; M51.24 Other intervertebral disc displacement, thoracic region ==

== ENCOUNTER 2022-03-03 13:24 | Outpatient (CLI) | payer MEDICARE ==
[~2022-03-03] VITALS: Ht 162.6 cm; Wt 55.9 kg
[~2022-03-03 13:24] MED LIST changes: +ALBUTEROL SULFATE 2.5 MG/0.5 ML INH NEB SOLN INH PRN; +EPINEPHrine INJ 1 MG/ML 1ML AMP IM PRN; +diphenhydrAMINE 50MG/ML VIAL (J1200) IV PRN; +methylPREDNISolone 125MG 2ML VIAL IV PRN
[2022-03-03] MEDS ORDERED: NS 1,000 ML IV SCH (13:30)
[2022-03-03] MEDS ORDERED: FERRIC CARBOXYMALTOSE INJ 750 MG in NS 250 ML (>50kg) IV ONE ×3 (13:30)
[2022-03-03 13:40] VITALS: BP 115/50
[2022-03-03 16:00] VITALS: BP 102/54
== END 2022-03-03 16:00 | disposition home or self-care (01) ==
LOC: M INFU 13:24
PROVIDERS: ATTEND Family Medicine
DX: D50.9 Iron deficiency anemia, unspecified (principal); Z88.2 Allergy status to sulfonamides; Z88.8 Allergy status to other drugs, medicaments and biological substances; Z91.048 Other nonmedicinal substance allergy status
CPT/HCPCS: 96365; 96366; J1439

== ENCOUNTER → 2022-04-04 | Outpatient (CLI) | payer MEDICARE ==
[~2022-04-04] MED LIST changes: -ALBUTEROL SULFATE 2.5 MG/0.5 ML INH NEB SOLN INH PRN; -EPINEPHrine INJ 1 MG/ML 1ML AMP IM PRN; -diphenhydrAMINE 50MG/ML VIAL (J1200) IV PRN; -methylPREDNISolone 125MG 2ML VIAL IV PRN
== END ==
LOC: M PAIN 13:15
PROVIDERS: ATTEND Anesthesiology
DX: M96.1 Postlaminectomy syndrome, not elsewhere classified (principal); M48.061 Spinal stenosis, lumbar region without neurogenic claudication; M79.7 Fibromyalgia; M06.9 Rheumatoid arthritis, unspecified; M19.90 Unspecified osteoarthritis, unspecified site; K21.9 Gastro-esophageal reflux disease without esophagitis; N30.10 Interstitial cystitis (chronic) without hematuria; R10.13 Epigastric pain; E78.5 Hyperlipidemia, unspecified; M47.812 Spondylosis without myelopathy or radiculopathy, cervical region; N95.2 Postmenopausal atrophic vaginitis; E55.9 Vitamin D deficiency, unspecified; M85.80 Other specified disorders of bone density and structure, unspecified site; J32.9 Chronic sinusitis, unspecified; K58.0 Irritable bowel syndrome with diarrhea; G47.00 Insomnia, unspecified; F33.9 Major depressive disorder, recurrent, unspecified; Z88.2 Allergy status to sulfonamides; Z88.8 Allergy status to other drugs, medicaments and biological substances; Z79.891 Long term (current) use of opiate analgesic; Z79.899 Other long term (current) drug therapy

== ENCOUNTER → 2022-06-01 | Outpatient (CLI) | payer MEDICARE | LOC: M LABSMTC 10:27 | PROVIDERS: ATTEND Anesthesiology | DX: Z11.52 Encounter for screening for COVID-19 (principal) ==

== ENCOUNTER → 2022-06-05 | Outpatient (CLI) | payer MEDICARE ==
[~2022-06-05] MED LIST changes: +ISOVUE-M 300 61% 15ML VIAL As Ordered ONE; +LIDOCAINE 1% SDV 30ML VIAL As Ordered ONE; +NORCO, ANEXSIA 5/325MG TABLET (HYDROcodone/ACETAMINOPHEN) As Ordered ONE; +diazePAM 5MG TABLET As Ordered ONE; +methylPREDNISolone SUSP 40MG/ML 1ML VIAL (DEPO MEDROL) As Ordered ONE
== END ==
LOC: M PAIN 14:30
PROVIDERS: ATTEND Anesthesiology
DX: M96.1 Postlaminectomy syndrome, not elsewhere classified (principal); G89.29 Other chronic pain; K21.9 Gastro-esophageal reflux disease without esophagitis; E55.9 Vitamin D deficiency, unspecified; F17.210 Nicotine dependence, cigarettes, uncomplicated; Z86.59 Personal history of other mental and behavioral disorders; Z88.2 Allergy status to sulfonamides; Z88.6 Allergy status to analgesic agent; Z88.8 Allergy status to other drugs, medicaments and biological substances; Z79.899 Other long term (current) drug therapy
CPT/HCPCS: 62323; J1030; Q9967

== ENCOUNTER → 2022-06-21 | Outpatient (CLI) | payer MEDICARE ==
[~2022-06-21] MED LIST changes: -ISOVUE-M 300 61% 15ML VIAL As Ordered ONE; -LIDOCAINE 1% SDV 30ML VIAL As Ordered ONE; -NORCO, ANEXSIA 5/325MG TABLET (HYDROcodone/ACETAMINOPHEN) As Ordered ONE; -diazePAM 5MG TABLET As Ordered ONE; -methylPREDNISolone SUSP 40MG/ML 1ML VIAL (DEPO MEDROL) As Ordered ONE
== END ==
LOC: M PAIN 14:30
PROVIDERS: ATTEND Anesthesiology
DX: G89.29 Other chronic pain (principal); M96.1 Postlaminectomy syndrome, not elsewhere classified; M48.062 Spinal stenosis, lumbar region with neurogenic claudication; K21.9 Gastro-esophageal reflux disease without esophagitis; E55.9 Vitamin D deficiency, unspecified; F17.210 Nicotine dependence, cigarettes, uncomplicated; Z86.59 Personal history of other mental and behavioral disorders; Z88.2 Allergy status to sulfonamides; Z88.6 Allergy status to analgesic agent; Z88.8 Allergy status to other drugs, medicaments and biological substances; Z79.899 Other long term (current) drug therapy

== ENCOUNTER → 2022-07-07 | Outpatient (CLI) | payer MEDICARE ==
[2022-07-07 13:35] LABS: BASO % 0.7 % (0.0-1.0); EOS % 0.5 % (0.0-3.0); HEMATOCRIT 45.8 % (36.0-47.0); LYMPH # 1.3 10^3/uL (1.5-5.0); LYMPH % 29.6 % (24.0-44.0); MEAN CORPUSCULAR HEMOGLOBIN 34.1 pg (27.0-33.0); MEAN CORPUSCULAR HGB CONC 32.8 g/dl (32.0-36.5); MEAN CORPUSCULAR VOLUME 104.1 fl (80.0-96.0); MONO # 0.5 10^3/uL (0.0-0.8); MONO % 11.5 % (2.0-8.0); NEUTROPHILS # 2.5 10^3/uL (1.5-8.5); NEUTROPHILS % 57.5 % (36.0-66.0); PLATELET COUNT, AUTOMATED 136 10^3/uL (150-450); WHITE BLOOD COUNT 4.3 10^3/uL (4.0-10.0)
[2022-07-07 14:16] LABS: ALBUMIN 4.3 G/DL (3.2-5.2); ALKALINE PHOSPHATASE 67 U/L (46-116); ALT/SGPT 53 U/L (7.0-40); AST/SGOT 37 U/L (<34); BILIRUBIN,TOTAL 0.8 MG/DL (0.3-1.2); BLOOD UREA NITROGEN 11 MG/DL (9-23); CALCIUM LEVEL 9.7 MG/DL (8.3-10.6); CARBON DIOXIDE LEVEL 31 MMOL/L (20-31); CHLORIDE LEVEL 105 MMOL/L (98-107); CHOLESTEROL LEVEL 216 MG/DL (<200); CHOLESTEROL RISK RATIO 3.35 (<5); CREATININE FOR GFR 0.72 MG/DL (0.55-1.30); FERRITIN 231.6 NG/ML (7.3-270.7); GLOMERULAR FILTRATION RATE > 60.0 (>45); GLUCOSE, FASTING 78 MG/DL (74-106); HDL CHOLESTEROL 64.3 MG/DL (>40); LDL CHOLESTEROL 116.9 MG/DL (<100); NON-HDL-C 151.7 MG/DL; POTASSIUM SERUM 4.8 MMOL/L (3.5-5.1); PTH INTACT 56.4 PG/ML (18.5-88.0); SODIUM LEVEL 142 MMOL/L (136-145); TOTAL 25(OH) VITAMIN D 53.1 NG/ML (20.0-100.0); TRIGLYCERIDES LEVEL 174 MG/DL (<150); VITAMIN B12 LEVEL 417 PG/ML (211-911)
[2022-07-08 11:08] LABS: APOLIPOPROTEIN B/A-1 RATIO 0.5 ratio (0.0-0.6); H PYLORI SERUM QUANT IgG ABY 0.19 (0.00-0.79)
== END ==
LOC: M PLALAB 10:28
PROVIDERS: ATTEND Family Medicine
DX: E55.9 Vitamin D deficiency, unspecified (principal); D50.9 Iron deficiency anemia, unspecified; E78.2 Mixed hyperlipidemia; Z79.899 Other long term (current) drug therapy

== ENCOUNTER → 2022-07-11 | Outpatient (CLI) | payer MEDICARE | LOC: M RAD 10:53 | PROVIDERS: ATTEND Physician Assistant | DX: M48.062 Spinal stenosis, lumbar region with neurogenic claudication (principal); Z98.1 Arthrodesis status ==

== ENCOUNTER → 2022-08-23 | Outpatient (CLI) | payer MEDICARE | LOC: M PAIN 10:30 | PROVIDERS: ATTEND Anesthesiology | DX: M48.061 Spinal stenosis, lumbar region without neurogenic claudication (principal); K21.9 Gastro-esophageal reflux disease without esophagitis; E78.5 Hyperlipidemia, unspecified; M79.7 Fibromyalgia; E55.9 Vitamin D deficiency, unspecified; M51.26 Other intervertebral disc displacement, lumbar region; M19.90 Unspecified osteoarthritis, unspecified site; M06.9 Rheumatoid arthritis, unspecified; N95.2 Postmenopausal atrophic vaginitis; F17.210 Nicotine dependence, cigarettes, uncomplicated; Z79.891 Long term (current) use of opiate analgesic; Z79.899 Other long term (current) drug therapy; Z88.2 Allergy status to sulfonamides; Z88.8 Allergy status to other drugs, medicaments and biological substances ==

== ENCOUNTER → 2023-02-07 | Outpatient (CLI) | payer MEDICARE ==
[2023-02-07 14:30] LABS: BASO % 1.2 % (0.0-1.0); EOS % 0.6 % (0.0-3.0); HEMATOCRIT 43.8 % (36.0-47.0); HEMOGLOBIN 14.3 g/dl (12.0-15.5); LYMPH # 1.2 10^3/uL (1.5-5.0); LYMPH % 36.2 % (24.0-44.0); MEAN CORPUSCULAR HEMOGLOBIN 33.4 pg (27.0-33.0); MEAN CORPUSCULAR HGB CONC 32.6 g/dl (32.0-36.5); MEAN CORPUSCULAR VOLUME 102.3 fl (80.0-96.0); MONO # 0.5 10^3/uL (0.0-0.8); MONO % 13.8 % (2.0-8.0); NEUTROPHILS # 1.6 10^3/uL (1.5-8.5); NEUTROPHILS % 47.9 % (36.0-66.0); PLATELET COUNT, AUTOMATED 147 10^3/uL (150-450); RED BLOOD COUNT 4.28 10^6/uL (4.00-5.40); WHITE BLOOD COUNT 3.3 10^3/uL (4.0-10.0)
[2023-02-07 14:40] LABS: ERYTHROCYTE SEDIMENTATION RATE 3 mm/hr (0-30)
== END ==
LOC: M PLALAB 10:17
PROVIDERS: ATTEND Physician Assistant Medical
DX: R05.1 Acute cough (principal); Z79.899 Other long term (current) drug therapy

== ENCOUNTER → 2023-02-13 | Outpatient (REF) | payer MEDICARE | LOC: M SFHCPLAZ 10:43 | PROVIDERS: ATTEND Physician Assistant Medical | DX: R05.8 Other specified cough (principal) ==

== ENCOUNTER → 2023-03-28 | Outpatient (CLI) | payer MEDICARE ==
[2023-03-28 11:06] LABS: BASO % 1.5 % (0.0-1.0); EOS % 1.1 % (0.0-3.0); HEMATOCRIT 44.3 % (36.0-47.0); HEMOGLOBIN 14.7 g/dl (12.0-15.5); LYMPH # 1.1 10^3/uL (1.5-5.0); LYMPH % 38.6 % (24.0-44.0); MEAN CORPUSCULAR HEMOGLOBIN 34.4 pg (27.0-33.0); MEAN CORPUSCULAR HGB CONC 33.2 g/dl (32.0-36.5); MEAN CORPUSCULAR VOLUME 103.7 fl (80.0-96.0); MONO # 0.2 10^3/uL (0.0-0.8); MONO % 8.1 % (2.0-8.0); NEUTROPHILS # 1.4 10^3/uL (1.5-8.5); NEUTROPHILS % 50.7 % (36.0-66.0); PLATELET COUNT, AUTOMATED 183 10^3/uL (150-450); RED BLOOD COUNT 4.27 10^6/uL (4.00-5.40); WHITE BLOOD COUNT 2.7 10^3/uL (4.0-10.0)
[2023-03-28 11:35] LABS: HEMOGLOBIN A1c 4.7 % (4.0-6.0)
== END ==
LOC: M RAD 10:17
PROVIDERS: ATTEND Family Medicine
DX: Z12.2 Encounter for screening for malignant neoplasm of respiratory organs (principal); F17.210 Nicotine dependence, cigarettes, uncomplicated; D50.9 Iron deficiency anemia, unspecified; R73.01 Impaired fasting glucose; D75.89 Other specified diseases of blood and blood-forming organs

== ENCOUNTER → 2023-04-12 | Outpatient (REF) | payer MEDICARE | LOC: M SFHCPLAZ 14:23 | PROVIDERS: ATTEND Family Medicine | DX: E78.2 Mixed hyperlipidemia (principal); J30.9 Allergic rhinitis, unspecified; D50.9 Iron deficiency anemia, unspecified ==

== ENCOUNTER → 2023-07-02 | Outpatient (CLI) | payer MEDICARE ==
[~2023-07-02] MED LIST changes: -LEFL1TAB4 PO; +LEFL20TA15 PO
[2023-07-02 16:19] LABS: BASO # 0.1 10^3/uL (0.0-0.2); BASO % 1.4 % (0.0-1.0); EOS % 0.6 % (0.0-3.0); HEMATOCRIT 42.7 % (36.0-47.0); HEMOGLOBIN 14.4 g/dl (12.0-15.5); LYMPH # 1.3 10^3/uL (1.5-5.0); LYMPH % 38.4 % (24.0-44.0); MEAN CORPUSCULAR HEMOGLOBIN 34.7 pg (27.0-33.0); MEAN CORPUSCULAR HGB CONC 33.7 g/dl (32.0-36.5); MEAN CORPUSCULAR VOLUME 102.9 fl (80.0-96.0); MONO # 0.4 10^3/uL (0.0-0.8); MONO % 12.4 % (2.0-8.0); NEUTROPHILS # 1.6 10^3/uL (1.5-8.5); NEUTROPHILS % 46.9 % (36.0-66.0); PLATELET COUNT, AUTOMATED 135 10^3/uL (150-450); RED BLOOD COUNT 4.15 10^6/uL (4.00-5.40); WHITE BLOOD COUNT 3.5 10^3/uL (4.0-10.0)
[2023-07-02 16:20] LABS: ALBUMIN 4.4 G/DL (3.2-5.2); ALKALINE PHOSPHATASE 57 U/L (46-116); ALT/SGPT 35 U/L (7.0-40); AST/SGOT 27 U/L (<34); BILIRUBIN,TOTAL 0.5 MG/DL (0.3-1.2); BLOOD UREA NITROGEN 9 MG/DL (9-23); CARBON DIOXIDE LEVEL 33 MMOL/L (20-31); CHLORIDE LEVEL 107 MMOL/L (98-107); CHOLESTEROL LEVEL 200 MG/DL (<200); CHOLESTEROL RISK RATIO 3.08 (<5); CREATININE FOR GFR 0.78 MG/DL (0.55-1.30); GLOMERULAR FILTRATION RATE > 60.0 (>45); GLUCOSE, FASTING 86 MG/DL (74-106); HDL CHOLESTEROL 64.8 MG/DL (>40); LDL CHOLESTEROL 105.6 MG/DL (<100); NON-HDL-C 135.2 MG/DL; POTASSIUM SERUM 5.5 MMOL/L (3.5-5.1); SODIUM LEVEL 140 MMOL/L (136-145); TOTAL PROTEIN 6.6 G/DL (5.7-8.2); TRIGLYCERIDES LEVEL 148 MG/DL (<150)
[2023-07-02 16:23] LABS: FERRITIN 68.8 NG/ML (7.3-270.7)
[2023-07-02 16:25] LABS: FREE T4 0.83 NG/DL (0.89-1.76); VITAMIN B12 LEVEL 537 PG/ML (211-911)
[2023-07-07 16:08] LABS: Cannabinoid Positive (.); Carboxy THC Conf, MS, UR >300 ng/mL (Cutoff=10); D001-IgE D pteronyssinus <0.10 kU/L (Class 0); E001-IgE Cat Epith/Dander < 0.10 kU/L (Class 0); E005-IgE Dog Dander < 0.10 kU/L (Class 0); G002-IgE Bermuda Grass < 0.10 kU/L (Class 0); M001-IgE Penicillium chrysogen < 0.10 kU/L (Class 0); M002 IgE Cladosporium herbaru < 0.10 kU/L (Class 0); M003 IgE Aspergillus fumigatu < 0.10 kU/L (Class 0); M006-IgE Alternaria alternata < 0.10 kU/L (Class 0); T001-IgE Maple/Box Elder < 0.10 kU/L (Class 0); T003-IgE Common Silver Birch < 0.10 kU/L (Class 0); T006-IgE Cedar, Mountain < 0.10 kU/L (Class 0); T007-IgE Oak, White < 0.10 kU/L (Class 0); T008-IgE Elm, American < 0.10 kU/L (Class 0); T015-IgE Ash, White < 0.10 kU/L (Class 0); T070-IgE White Mulberry < 0.10 kU/L (Class 0); W001-IgE Ragweed, Short < 0.10 kU/L (Class 0); W018-IgE Sheep Sorrel < 0.10 kU/L (Class 0)
== END ==
LOC: M PLALAB 14:02
PROVIDERS: ATTEND Family Medicine
DX: G89.4 Chronic pain syndrome (principal); E78.2 Mixed hyperlipidemia; D50.9 Iron deficiency anemia, unspecified; J30.89 Other allergic rhinitis

== ENCOUNTER → 2023-10-25 | Outpatient (CLI) | payer MEDICARE ==
[~2023-10-25] MED LIST changes: +ESOM1CAP20 PO; -ESOM1CAP5 PO
== END ==
LOC: M WHC 17:47
PROVIDERS: ATTEND Family Medicine
DX: Z12.39 Encounter for other screening for malignant neoplasm of breast (principal)

== ENCOUNTER → 2023-10-26 | Outpatient (CLI) | payer MEDICARE ==
[2023-10-26 17:20] LABS: BASO % 0.9 % (0.0-1.0); EOS % 0.6 % (0.0-3.0); HEMATOCRIT 41.4 % (36.0-47.0); LYMPH # 1.5 10^3/uL (1.5-5.0); LYMPH % 32.6 % (24.0-44.0); MEAN CORPUSCULAR HEMOGLOBIN 35.2 pg (27.0-33.0); MEAN CORPUSCULAR HGB CONC 33.8 g/dl (32.0-36.5); MONO # 0.4 10^3/uL (0.0-0.8); MONO % 8.9 % (2.0-8.0); NEUTROPHILS # 2.6 10^3/uL (1.5-8.5); NEUTROPHILS % 56.8 % (36.0-66.0); PLATELET COUNT, AUTOMATED 164 10^3/uL (150-450); RED BLOOD COUNT 3.98 10^6/uL (4.00-5.40); WHITE BLOOD COUNT 4.6 10^3/uL (4.0-10.0)
[2023-10-26 17:26] LABS: ERYTHROCYTE SEDIMENTATION RATE < 1 mm/hr (0-30)
[2023-10-26 17:46] LABS: C REACTIVE PROTEIN QUANTITATIV < 0.40 MG/DL (<1.0)
[2023-10-26 17:48] LABS: ALBUMIN 4.3 G/DL (3.2-5.2); ALKALINE PHOSPHATASE 52 U/L (46-116); ALT/SGPT 36 U/L (7.0-40); AST/SGOT 27 U/L (<34); BILIRUBIN,TOTAL 0.6 MG/DL (0.3-1.2); BLOOD UREA NITROGEN 7 MG/DL (9-23); CALCIUM LEVEL 9.5 MG/DL (8.3-10.6); CARBON DIOXIDE LEVEL 30 MMOL/L (20-31); CHLORIDE LEVEL 108 MMOL/L (98-107); GLOMERULAR FILTRATION RATE > 60.0 (>45); GLUCOSE, FASTING 90 MG/DL (74-106); POTASSIUM SERUM 4.1 MMOL/L (3.5-5.1); SODIUM LEVEL 141 MMOL/L (136-145); TOTAL PROTEIN 6.5 G/DL (5.7-8.2)
[2023-10-26 17:49] LABS: FERRITIN 75.4 NG/ML (7.3-270.7); FREE T4 0.91 NG/DL (0.89-1.76)
[2023-10-26 17:50] LABS: THYROID STIMULATING HORMONE 0.648 uIU/ML (0.55-4.78)
[2023-10-26 17:51] LABS: HEMOGLOBIN A1c 4.9 % (4.0-6.0)
== END ==
LOC: M PLALAB 16:00
PROVIDERS: ATTEND Family Medicine
DX: R73.01 Impaired fasting glucose (principal); D50.9 Iron deficiency anemia, unspecified; M06.9 Rheumatoid arthritis, unspecified; F30.8 Other manic episodes

== ENCOUNTER → 2023-10-26 | Outpatient (REF) | payer MEDICARE | LOC: M SFHCPLAZ 14:00 | PROVIDERS: ATTEND Family Medicine | DX: Z53.9 Procedure and treatment not carried out, unspecified reason (principal) ==

== ENCOUNTER → 2023-11-23 | Outpatient (CLI) | payer MEDICARE | LOC: M WHC 08:17 | PROVIDERS: ATTEND Family Medicine | DX: Z12.31 Encounter for screening mammogram for malignant neoplasm of breast (principal); M85.89 Other specified disorders of bone density and structure, multiple sites ==

== ENCOUNTER → 2023-12-11 | Outpatient (CLI) | payer MEDICARE ==
[~2023-12-11] MED LIST changes: -ACIP1TAB PO; +RABE20TA88 PO
[2023-12-11 15:25] LABS: BASO # 0.1 10^3/uL (0.0-0.2); BASO % 1.2 % (0.0-1.0); EOS % 0.6 % (0.0-3.0); HEMATOCRIT 43.8 % (36.0-47.0); HEMOGLOBIN 14.6 g/dl (12.0-15.5); LYMPH # 1.5 10^3/uL (1.5-5.0); LYMPH % 29.2 % (24.0-44.0); MEAN CORPUSCULAR HEMOGLOBIN 34.4 pg (27.0-33.0); MEAN CORPUSCULAR HGB CONC 33.3 g/dl (32.0-36.5); MEAN CORPUSCULAR VOLUME 103.3 fl (80.0-96.0); MONO # 0.6 10^3/uL (0.0-0.8); MONO % 10.8 % (2.0-8.0); PLATELET COUNT, AUTOMATED 209 10^3/uL (150-450); RED BLOOD COUNT 4.24 10^6/uL (4.00-5.40); WHITE BLOOD COUNT 5.1 10^3/uL (4.0-10.0)
[2023-12-11 15:56] LABS: ALBUMIN 4.1 G/DL (3.2-5.2); ALKALINE PHOSPHATASE 79 U/L (46-116); ALT/SGPT 24 U/L (7.0-40); AST/SGOT 25 U/L (<34); BILIRUBIN,TOTAL 0.5 MG/DL (0.3-1.2); BLOOD UREA NITROGEN 9 MG/DL (9-23); CALCIUM LEVEL 9.8 MG/DL (8.3-10.6); CARBON DIOXIDE LEVEL 33 MMOL/L (20-31); CHLORIDE LEVEL 106 MMOL/L (98-107); CREATININE FOR GFR 0.87 MG/DL (0.55-1.30); GLOMERULAR FILTRATION RATE > 60.0 (>45); GLUCOSE, FASTING 65 MG/DL (74-106); IRON (FE) 91 UG/DL (50-170); PERCENT SATURATION 26.1 % (13.2-45.0); POTASSIUM SERUM 4.8 MMOL/L (3.5-5.1); SODIUM LEVEL 140 MMOL/L (136-145); TOTAL IRON BINDING CAPACITY 349 UG/DL (250-425); TOTAL PROTEIN 6.9 G/DL (5.7-8.2)
[2023-12-11 15:58] LABS: FERRITIN 121.9 NG/ML (7.3-270.7)
== END ==
LOC: M PLALAB 12:13
PROVIDERS: ATTEND Physician Assistant
DX: R10.13 Epigastric pain (principal); R19.5 Other fecal abnormalities; E53.8 Deficiency of other specified B group vitamins; D50.9 Iron deficiency anemia, unspecified

== ENCOUNTER → 2023-12-12 | Outpatient (REF) | payer MEDICARE | LOC: M SFHCPLAZ 10:16 | PROVIDERS: ATTEND Physician Assistant | DX: R19.5 Other fecal abnormalities (principal); D50.9 Iron deficiency anemia, unspecified; D58.9 Hereditary hemolytic anemia, unspecified; R19.7 Diarrhea, unspecified; R10.10 Upper abdominal pain, unspecified ==

== ENCOUNTER 2024-01-14 16:46 | Emergency (ER) | payer MEDICARE ==
[~2024-01-14] VITALS: Ht 162.6 cm; Wt 54.1 kg
[2024-01-14 17:21] LABS: HEMATOCRIT 39.5 % (36.0-47.0); HEMOGLOBIN 13.3 g/dl (12.0-15.5); MEAN CORPUSCULAR HEMOGLOBIN 33.7 pg (27.0-33.0); MEAN CORPUSCULAR HGB CONC 33.7 g/dl (32.0-36.5); PLATELET COUNT, AUTOMATED 198 10^3/uL (150-450); RED BLOOD COUNT 3.95 10^6/uL (4.00-5.40); WHITE BLOOD COUNT 5.8 10^3/uL (4.0-10.0)
[2024-01-14 17:38] LABS: INR 0.96; PARTIAL THROMBOPLASTIN TIME 26.4 SECONDS (24.8-34.2); PROTHROMBIN TIME 12.5 SECONDS (12.5-14.5)
[2024-01-14 17:49] LABS: BLOOD UREA NITROGEN 8 MG/DL (9-23); CALCIUM LEVEL 8.8 MG/DL (8.3-10.6); CARBON DIOXIDE LEVEL 28 MMOL/L (20-31); CHLORIDE LEVEL 104 MMOL/L (98-107); CREATININE FOR GFR 0.87 MG/DL (0.55-1.30); GLOMERULAR FILTRATION RATE > 60.0 (>45); GLUCOSE, FASTING 134 MG/DL (74-106); POTASSIUM SERUM 3.7 MMOL/L (3.5-5.1); SODIUM LEVEL 137 MMOL/L (136-145)
[2024-01-14 17:54] LABS: RSV AMPLIFICATION NEGATIVE (NEGATIVE)
[2024-01-14 21:37] LABS: ETHYL ALCOHOL (ETHANOL) < 0.003 % (0.000-0.010)
[2024-01-14 21:39] LABS: SALICYLATE LEVEL < 3.0 MG/DL (<30)
[2024-01-14] MEDS: AMOXICILLIN 500 MG CAP PO ONE (22:30)
[2024-01-14 22:36] LABS: AMPHETAMINES LEVEL URINE NEGATIVE (NEGATIVE)
[2024-01-14 22:40] LABS: BARBITURATES URINE NEGATIVE (NEGATIVE); BENZODIAZEPINES URINE NEGATIVE (NEGATIVE); COCAINE METABOLITE URINE NEGATIVE (NEGATIVE); METHADONE URINE NEGATIVE (NEGATIVE); PHENCYCLIDINE URINE NEGATIVE (NEGATIVE)
[2024-01-14 22:47] LABS: CANNABINOIDS URINE POSITIVE (NEGATIVE); OPIATES URINE POSITIVE (NEGATIVE)
[2024-01-14] MEDS ORDERED: AMOX500C PO (23:05)
[2024-01-14] MEDS ORDERED: DEPA1TAB3 PO (23:05)
[2024-01-14] MEDS ORDERED: DIFL200T PO (23:05)
[2024-01-14 23:10] VITALS: BP 134/90; TEMP 97.8; O2SAT 98
[2024-01-14] MEDS: DIVALPROEX 500 MG TAB PO ONE (23:22)
[2024-01-14 23:34] LABS: ALBUMIN 4.1 G/DL (3.2-5.2); ALKALINE PHOSPHATASE 66 U/L (46-116); ALT/SGPT 24 U/L (7.0-40); AST/SGOT 30 U/L (<34); BILIRUBIN,DIRECT 0.2 MG/DL (<0.4); BILIRUBIN,TOTAL 0.6 MG/DL (0.3-1.2); TOTAL PROTEIN 6.7 G/DL (5.7-8.2)
== END 2024-01-14 23:44 | disposition home or self-care (01) ==
LOC: M ED 16:46
DX: F30.9 Manic episode, unspecified (principal); H66.92 Otitis media, unspecified, left ear; K21.9 Gastro-esophageal reflux disease without esophagitis; E78.5 Hyperlipidemia, unspecified; F41.1 Generalized anxiety disorder; F32.A Depression, unspecified; M51.36 Other intervertebral disc degeneration, lumbar region; F17.200 Nicotine dependence, unspecified, uncomplicated; Z79.899 Other long term (current) drug therapy; Z88.2 Allergy status to sulfonamides; Z88.8 Allergy status to other drugs, medicaments and biological substances

== ENCOUNTER → 2024-01-17 | Outpatient (REF) | payer MEDICARE ==
[~2024-01-17] MED LIST changes: +AMOX500C PO; +DEPA1TAB3 PO; +DIFL200T PO
== END ==
LOC: M SFHCPLAZ 12:54
DX: F31.12 Bipolar disorder, current episode manic without psychotic features, moderate (principal)

== ENCOUNTER → 2024-01-31 | Outpatient (CLI) | payer MEDICARE ==
[2024-01-31 15:58] LABS: HEMATOCRIT 41.1 % (36.0-47.0); HEMOGLOBIN 13.4 g/dl (12.0-15.5); MEAN CORPUSCULAR HEMOGLOBIN 33.5 pg (27.0-33.0); MEAN CORPUSCULAR HGB CONC 32.6 g/dl (32.0-36.5); MEAN CORPUSCULAR VOLUME 102.8 fl (80.0-96.0); PLATELET COUNT, AUTOMATED 225 10^3/uL (150-450); WHITE BLOOD COUNT 5.5 10^3/uL (4.0-10.0)
[2024-01-31 16:26] LABS: VALPROIC ACID (DEPAKOTE) 76.3 UG/ML (50.0-100.0)
[2024-01-31 16:28] LABS: ALBUMIN 3.3 G/DL (3.2-5.2); ALKALINE PHOSPHATASE 70 U/L (46-116); ALT/SGPT 13 U/L (7.0-40); AST/SGOT 17 U/L (<34); BILIRUBIN,TOTAL 0.3 MG/DL (0.3-1.2); BLOOD UREA NITROGEN 7 MG/DL (9-23); CALCIUM LEVEL 9.3 MG/DL (8.3-10.6); CARBON DIOXIDE LEVEL 31 MMOL/L (20-31); CHLORIDE LEVEL 105 MMOL/L (98-107); CREATININE FOR GFR 0.79 MG/DL (0.55-1.30); GLOMERULAR FILTRATION RATE > 60.0 (>45); GLUCOSE, FASTING 56 MG/DL (74-106); POTASSIUM SERUM 4.7 MMOL/L (3.5-5.1); SODIUM LEVEL 138 MMOL/L (136-145); TOTAL PROTEIN 6.3 G/DL (5.7-8.2)
[2024-01-31 16:30] LABS: FREE T4 0.77 NG/DL (0.89-1.76); THYROID STIMULATING HORMONE 0.704 uIU/ML (0.55-4.78)
== END ==
LOC: M PLALAB 14:09
DX: F31.12 Bipolar disorder, current episode manic without psychotic features, moderate (principal)

== ENCOUNTER → 2024-06-04 | Outpatient (CLI) | payer MEDICARE ==
[2024-06-04 12:38] LABS: BASO # 0.1 10^3/uL (0.0-0.2); EOS % 0.6 % (0.0-3.0); HEMATOCRIT 44.2 % (36.0-47.0); HEMOGLOBIN 14.5 g/dl (12.0-15.5); LYMPH # 1.2 10^3/uL (1.5-5.0); LYMPH % 24.3 % (24.0-44.0); MEAN CORPUSCULAR HEMOGLOBIN 32.8 pg (27.0-33.0); MEAN CORPUSCULAR HGB CONC 32.8 g/dl (32.0-36.5); MONO # 0.2 10^3/uL (0.0-0.8); MONO % 3.6 % (2.0-8.0); NEUTROPHILS # 3.5 10^3/uL (1.5-8.5); NEUTROPHILS % 70.3 % (36.0-66.0); PLATELET COUNT, AUTOMATED 201 10^3/uL (150-450); RED BLOOD COUNT 4.42 10^6/uL (4.00-5.40)
[2024-06-04 12:45] LABS: ERYTHROCYTE SEDIMENTATION RATE 43 mm/hr (0-30)
[2024-06-04 12:59] LABS: ALBUMIN 3.6 G/DL (3.2-5.2); ALKALINE PHOSPHATASE 93 U/L (35-104); ALT/SGPT 25 U/L (7.0-40); AST/SGOT 28 U/L (<34); BILIRUBIN,TOTAL 0.5 MG/DL (0.3-1.2); BLOOD UREA NITROGEN 8 MG/DL (9-23); CALCIUM LEVEL 9.6 MG/DL (8.3-10.6); CARBON DIOXIDE LEVEL 27 MMOL/L (20-31); CHLORIDE LEVEL 106 MMOL/L (98-107); CHOLESTEROL LEVEL 196 MG/DL (<200); CHOLESTEROL RISK RATIO 3.62 (<5); CREATININE FOR GFR 0.88 MG/DL (0.55-1.30); GLOMERULAR FILTRATION RATE > 60.0 (>45); GLUCOSE, FASTING 199 MG/DL (74-106); HDL CHOLESTEROL 54.1 MG/DL (>40); LDL CHOLESTEROL 118.1 MG/DL (<100); NON-HDL-C 141.9 MG/DL; POTASSIUM SERUM 4.6 MMOL/L (3.5-5.1); SODIUM LEVEL 141 MMOL/L (136-145); TOTAL PROTEIN 6.8 G/DL (5.7-8.2); TRIGLYCERIDES LEVEL 119 MG/DL (<150)
[2024-06-04 13:00] LABS: FERRITIN 125.9 NG/ML (7.3-270.7)
== END ==
LOC: M PLALAB 10:50
PROVIDERS: ATTEND Family Medicine
DX: R73.01 Impaired fasting glucose (principal); M06.9 Rheumatoid arthritis, unspecified; D50.9 Iron deficiency anemia, unspecified; E78.2 Mixed hyperlipidemia

== ENCOUNTER → 2024-06-27 | Outpatient (CLI) | payer MEDICARE ==
[~2024-06-27] MED LIST changes: +CARI-555 PO; -CARI1TAB7 PO
== END ==
LOC: M RAD 07:59
PROVIDERS: ATTEND Family Medicine
DX: Z87.891 Personal history of nicotine dependence (principal)

== ENCOUNTER → 2024-11-24 | Outpatient (CLI) | payer MEDICARE | LOC: M WHC 13:57 | PROVIDERS: ATTEND Family Medicine | DX: Z12.31 Encounter for screening mammogram for malignant neoplasm of breast (principal); R92.333 Mammographic heterogeneous density, bilateral breasts ==

== ENCOUNTER → 2025-01-19 | Outpatient (CLI) | payer MEDICARE ==
[2025-01-19 11:26] LABS: BASO # 0.1 10^3/uL (0.0-0.2); BASO % 1.0 % (0.0-1.0); EOS # 0.0 10^3/uL (0.0-0.5); EOS % 0.6 % (0.0-3.0); LYMPH # 1.9 10^3/uL (1.5-5.0); LYMPH % 36.9 % (24.0-44.0); MONO # 0.4 10^3/uL (0.0-0.8); MONO % 8.1 % (2.0-8.0); NEUTROPHILS # 2.8 10^3/uL (1.5-8.5); NEUTROPHILS % 53.0 % (36.0-66.0); PLATELET COUNT, AUTOMATED 267 10^3/uL (150-450)
[2025-01-19 11:32] LABS: ALT/SGPT 26.0 U/L (7.0-40); AST/SGOT 24.0 U/L (<34); CALCIUM LEVEL 9.4 MG/DL (8.3-10.6); CARBON DIOXIDE LEVEL 32.0 MMOL/L (20-31); CHLORIDE LEVEL 106.0 MMOL/L (98-107); CHOLESTEROL LEVEL 261.0 MG/DL (<200); CHOLESTEROL RISK RATIO 4.0 (<5); CREATININE FOR GFR 0.83 MG/DL (0.55-1.30); GLOMERULAR FILTRATION RATE 78.2 (>45); LDL CHOLESTEROL 160.3 MG/DL (<100); NON-HDL-C 195.9 MG/DL; POTASSIUM SERUM 4.7 MMOL/L (3.5-5.1); PTH INTACT 48.7 PG/ML (18.5-88.0); SODIUM LEVEL 144.0 MMOL/L (136-145); TRIGLYCERIDES LEVEL 178.0 MG/DL (<150)
[2025-01-19 11:33] LABS: TOTAL 25(OH) VITAMIN D 33.0 NG/ML (20.0-100.0)
[2025-01-19 11:36] LABS: ESTIMATED AVERAGE GLUCOSE 105.0 MG/DL (60-110)
== END ==
LOC: M PLALAB 07:12
PROVIDERS: ATTEND Family Medicine
DX: E55.9 Vitamin D deficiency, unspecified (principal); D50.9 Iron deficiency anemia, unspecified; R73.01 Impaired fasting glucose; E78.2 Mixed hyperlipidemia; M06.9 Rheumatoid arthritis, unspecified

== ENCOUNTER 2025-02-24 08:48 | Day surgery (SDC) | payer MEDICARE ==
[~2025-02-24] VITALS: Ht 162.6 cm; Wt 59.1 kg
[~2025-02-24 08:48] MED LIST changes: +FOLI1TAB11 PO; +LEVOTAB10 PO; +METH2.5T48 PO
[2025-02-24] MEDS ORDERED: LIDOCAINE 2% 100 MG/5 ML SDV (FOR ANES.) As Ordered ONE (09:18)
[2025-02-24 10:31] VITALS: BP 122/58; O2SAT 98
== END 2025-02-24 10:36 | disposition home or self-care (01) ==
LOC: M OPP 08:48
PROVIDERS: ATTEND Internal Medicine Gastroenterology
DX: D12.3 Benign neoplasm of transverse colon (principal); D12.2 Benign neoplasm of ascending colon; K57.30 Diverticulosis of large intestine without perforation or abscess without bleeding; K64.8 Other hemorrhoids; Z98.890 Other specified postprocedural states; Z86.0101 Personal history of adenomatous and serrated colon polyps; K92.1 Melena; Z88.2 Allergy status to sulfonamides; Z88.8 Allergy status to other drugs, medicaments and biological substances; Z91.048 Other nonmedicinal substance allergy status; Z79.51 Long term (current) use of inhaled steroids; Z79.899 Other long term (current) drug therapy; F17.210 Nicotine dependence, cigarettes, uncomplicated

== ENCOUNTER 2025-04-20 14:11 | Inpatient (IN) | payer MEDICARE ==
[~2025-04-20] VITALS: Ht 162.6 cm; Wt 59.6 kg
[2025-04-20 15:04] LABS: PLATELET COUNT, AUTOMATED 302 10^3/uL (150-450)
[2025-04-20 15:34] LABS: ETHYL ALCOHOL (ETHANOL) < 0.003 % (0.000-0.010)
[2025-04-20 15:36] LABS: ALT/SGPT 34 U/L (7.0-40); AST/SGOT 45 U/L (<34); CALCIUM LEVEL 9.6 MG/DL (8.3-10.6); CARBON DIOXIDE LEVEL 25 MMOL/L (20-31); CHLORIDE LEVEL 109 MMOL/L (98-107); CREATININE FOR GFR 0.76 MG/DL (0.55-1.30); GLOMERULAR FILTRATION RATE 86.9 (>45); POTASSIUM SERUM 4.0 MMOL/L (3.5-5.1); SALICYLATE LEVEL < 3.0 MG/DL (<30); SODIUM LEVEL 143 MMOL/L (136-145)
[2025-04-20 15:59] LABS: AMPHETAMINES LEVEL URINE NEGATIVE (NEGATIVE); BARBITURATES URINE NEGATIVE (NEGATIVE); BENZODIAZEPINES URINE NEGATIVE (NEGATIVE); COCAINE METABOLITE URINE NEGATIVE (NEGATIVE); METHADONE URINE NEGATIVE (NEGATIVE); OPIATES URINE NEGATIVE (NEGATIVE); PHENCYCLIDINE URINE NEGATIVE (NEGATIVE)
[2025-04-20 16:01] LABS: CANNABINOIDS URINE POSITIVE (NEGATIVE)
[2025-04-20 16:55] LABS: ABG BASE EXCESS 1.0 (-2.0-2.0); ABG HCO3 24.5 MMOL/L (22.0-26.0); ABG O2 SATURATION 97.4 % (95.0-99.0); ABG PARTIAL PRESSURE CO2 35.6 mmHg (35.0-45.0); ABG PARTIAL PRESSURE O2 92.9 mmHg (75.0-100.0); ABG STANDARD HCO3 25.4 MMOL/L. (22.0-26.0); ABG TOTAL CO2 25.6 MMOL/L (23.0-31.0); ABG pH (ARTERIAL) 7.456 UNITS (7.350-7.450)
[2025-04-20] MEDS ORDERED: PRED5TA PO (16:56)
[2025-04-20] MEDS ORDERED: MED REC COMMENT (16:57)
[2025-04-20] MEDS ORDERED: HOME MED LIST COMPLETE! XX SCH (17:00)
[2025-04-20] MEDS ORDERED: HALOPERIDOL 5 MG TAB PO PRN (19:15)
[2025-04-20] MEDS ORDERED: MOM 30 ML SUSPENSION UDC PO PRN (19:15)
[2025-04-20] MEDS ORDERED: MAALOX 30 ML SUSP *UDC PO PRN (19:15)
[2025-04-20] MEDS: ACETAMINOPHEN 325 MG TAB PO PRN (22:01)
[2025-04-20 22:41] VITALS: BP 121/67; TEMP 97.1; O2SAT 96
[2025-04-21] MEDS: FOLIC ACID 1 MG TAB PO SCH (08:31)
[2025-04-21] MEDS: ATORVASTATIN 20 MG TAB PO SCH (08:31)
[2025-04-21] MEDS: VITAMIN D 1,000 INTERNATIONAL UNITS TABLET PO SCH (08:31)
[2025-04-21 15:01] VITALS: BP 144/84; TEMP 97.2; O2SAT 96
[2025-04-21] MEDS: DIVALPROEX 250 MG *ER* TAB PO SCH (20:11)
[2025-04-21] MEDS: traZODone 50 MG TAB PO PRN (20:14)
[2025-04-22 06:28] VITALS: BP 143/61; TEMP 97; O2SAT 99
[2025-04-22] MEDS: FERROUS SULFATE 325 MG TAB PO SCH (08:46)
[2025-04-22] MEDS: PERCOCET 5MG/325MG TAB PO PRN (08:47)
[2025-04-22] MEDS: PANTOPRAZOLE 40MG TAB PO SCH (08:50)
[2025-04-22 16:19] VITALS: BP 145/65; TEMP 97.9; O2SAT 97
[2025-04-22] MEDS: DIVALPROEX 500 MG *ER* TAB PO SCH (20:22)
[2025-04-23] MEDS: DOCUSATE SODIUM 100 MG CAPSULE PO SCH (11:24)
[2025-04-23 16:05] VITALS: BP 156/70; TEMP 97.8; O2SAT 97
[2025-04-23] MEDS: POLYVINYL ALCOHOL OPHTH SOLN 15ML (LIQUITEARS) OU SCH (17:47)
[2025-04-23] MEDS: FLUTICASONE PROPIONATE 0.05% NASAL SPRAY 16 GM NARES SCH (20:37)
[2025-04-24 06:32] VITALS: BP 148/65; TEMP 97.8
[2025-04-24 12:04] VITALS: O2SAT 98
[2025-04-24] MEDS ORDERED: ANALGESIC BALM CRM 3 OZ TOP PRN (13:40)
[2025-04-24 14:25] VITALS: BP 162/68; TEMP 97.4; O2SAT 98
[2025-04-24 19:10] VITALS: BP 142/67
[2025-04-24] MEDS: LORazepam 1 MG TAB PO PRN (20:38)
[2025-04-25 06:15] VITALS: BP 151/67; TEMP 98; O2SAT 99
[2025-04-25 14:53] VITALS: BP 111/60; TEMP 97.9; O2SAT 98
[2025-04-25] MEDS: METHOTREXATE 2.5 MG TAB PO SCH (20:44)
[2025-04-26 06:25] VITALS: BP 158/68; TEMP 97.2; O2SAT 97
[2025-04-26 15:15] VITALS: BP 105/65; TEMP 97.8; O2SAT 97
[2025-04-27 06:19] VITALS: BP 118/60; TEMP 97.2; O2SAT 96
[2025-04-27] MEDS: busPIRone 5 MG TAB PO SCH (13:14)
[2025-04-27 13:26] LABS: KETONE, URINE AUTO RFX NEGATIVE (NEGATIVE); LEUKOCYTE ESTERASE UR AUTO RFX NEGATIVE (NEGATIVE); NITRITE, URINE AUTO RFX NEGATIVE (NEGATIVE); RBC, URINE AUTO RFX 1 /HPF (0-3); SQUAM EPITHELIAL CELL UR AURFX 2 /HPF (0-6); WBC, URINE AUTO RFX 1 /HPF (0-3)
[2025-04-27 16:21] VITALS: BP 122/59; TEMP 97.8; O2SAT 97
[2025-04-27] MEDS: DIVALPROEX 250 MG *ER* TAB PO SCH (20:22)
[2025-04-28 06:23] VITALS: BP 111/59; TEMP 97.9; O2SAT 95
[2025-04-28 18:08] VITALS: BP 145/63; TEMP 97.6
[2025-04-28] MEDS ORDERED: NICOTINE 14 MG/24 HR TRANSDERMAL TD PRN (18:25)
[2025-04-29 06:19] VITALS: BP 129/59; TEMP 97.5; O2SAT 98
[2025-04-29] MEDS ORDERED: TRAZ-252 PO (09:51)
[2025-04-29] MEDS ORDERED: COLA100C5 PO (09:51)
[2025-04-29] MEDS ORDERED: ABIL1TAB11 PO (09:51)
[2025-04-29] MEDS ORDERED: HYDR-3363 PO (09:51)
[2025-04-29] MEDS ORDERED: PANT40TA29 PO (09:51)
[2025-04-29] MEDS ORDERED: DEPA250T PO (09:51)
[2025-04-29] MEDS ORDERED: BUSP5TA PO (09:51)
== END 2025-04-29 13:21 | disposition home or self-care (01) | DRG 885 ==
LOC: M ED 18:12 → UNDOADMIN 19:16 → M ED INP 19:16 → M PSY 22:09
PROVIDERS: ADMIT Psychiatry & Neurology Neurology; ATTEND Psychiatry & Neurology Neurology
DX: F39 Unspecified mood [affective] disorder (principal); F41.1 Generalized anxiety disorder; M06.9 Rheumatoid arthritis, unspecified; E78.5 Hyperlipidemia, unspecified; D50.9 Iron deficiency anemia, unspecified; Z79.52 Long term (current) use of systemic steroids; Z79.899 Other long term (current) drug therapy; Z88.2 Allergy status to sulfonamides; Z88.8 Allergy status to other drugs, medicaments and biological substances; Z91.048 Other nonmedicinal substance allergy status